=== PATIENT | female | born 1950 | race Caucasian/White ===

== ENCOUNTER 2019-05-07 12:20 | Inpatient (IN) | payer MEDICARE, SELFPAY ==
[2019-05-07] VITALS (10 sets, daily range): BP systolic 136–154; BP diastolic 84–106; PULSE 100–112; RESP 17–24; TEMP 36.6–37.1; O2SAT 91–100; BMI 45.7; BMI 50.5
--- NOTE | 2019-05-07 15:38 | EKG12_ITS ---
Test Reason : SOB Blood Pressure : / mmHG Vent. Rate : 101 BPM Atrial Rate : 101 BPM P-R Int : 154 ms QRS Dur : 082 ms QT Int : 308 ms P-R-T Axes : 048 -11 058 degrees QTc Int : 399 ms Sinus tachycardia Inferior infarct , age undetermined Cannot rule out Anterior infarct , age undetermined Non-specific T-Wave Abnormality Abnormal ECG Confirmed by OLIVIA VELEZ, LINDSAY ([id number]), graphic editor JACK RAMOS ([id number]) on 05/09/2019 7:54:14 AM Referred By: Shakeel Groves Confirmed By:LINDSAY BAKER MD
[2019-05-07] MEDS: Ipratropium/Albuterol Sulfate 3 ML AMPUL.NEB INHALATION (15:55)
[2019-05-07 16:15] LABS: Anion Gap 7 (5-15); BUN 16 mg/dL (7-18); BUN/Creat Ratio 12.6 RATIO (10-20); Calcium,Total 8.8 mg/dL (8.5-10.1); Chloride 106 mmol/L (98-107); Creatinine, Serum 1.27 mg/dL (0.55-1.02); EST Glomerular Filtration Rate 44 mL/min (>60); Est Glom Filt Rate - Afr Amer 53 mL/min (>60); Glucose 392 mg/dL (74-106); Potassium 4.5 mmol/L (3.5-5.1); Sodium Level 142 mmol/L (136-145)
--- NOTE | 2019-05-07 16:20 | RAD_ITS ---
STUDY: X-RAY CHEST REASON FOR EXAM: Female, 68 years old. SHORTNESS OF BREATH WITH NON-PRODUCTIVE COUGH OVER THE LAST COUPLE OF DAYS, WORSE TODAY TECHNIQUE: Frontal and lateral views of the chest. COMPARISON: None. FINDINGS: Single chamber defibrillator on the left. Central vascular congestion. There is no demonstrated pleural abnormality. Prominent cardiac silhouette. Normal mediastinum and madan. Normal visualized pulmonary arteries. Normal visualized aortic arch and descending thoracic aorta. Normal visualized thoracic spine. There is degenerative osteoarthritis of the bilateral shoulders. There is no demonstrated abnormality of the visualized soft tissue structures of the upper abdomen. RAD/Chest PA and Lateral IMPRESSION: Central vascular congestion. Electronically Signed: Jhon Fairbanks MD at 16:42 EDT Tel , Service support ,
[2019-05-07 16:24] LABS: Absolute Lymphocyte Count 0.35 X10^3/ul (0.83-4.51); Absolute Neutrophil Count 5.2 X10^3/uL (2.0-7.7); Basophil# 0.01 X10^3/uL; Basophil% 0.2 % (0-1); Eosinophil# 0.08 X10^3/uL; Eosinophils% 1.3 % (0-5); Hematocrit 40.3 % (37-47); Hemoglobin 12.3 g/dl (12.0-15.0); Lymphocyte # 0.35 X10^3/ul (4.0); Lymphocyte % 5.6 % (19-41); Mean Corp Hgb Conc 30.5 g/gl (32-36); Mean Corpuscular Volume 88.4 fL (81-99); Mean Platelet Vol. 11.7 fl (6.2-12.0); Monocyte# 0.58 X10^3/uL; Monocyte% 9.3 % (0-10); Neutrophil % 83.4 % (47-70); Platelet Count 131 K/mm3 (150-450); RBC Distribution Width CV 16.7 % (11.6-14.6); RBC Distribution Width SD 53.3 fl (35.1-43.9); Red Blood Count 4.56 M/mm3 (4.2-5.4); White Blood Count 6.2 K/mm3 (4.4-11.0)
[2019-05-07 16:26] LABS: Differential Indicated SCAN CRITERIA MET; POSITIVE COUNT NO; POSITIVE DIFFERENTIAL YES; POSITIVE MORPHOLOGY YES
[2019-05-07 16:50] LABS: BNP,B-Type NATRIURETIC PEPTIDE 366.4 pg/mL (0-100)
--- NOTE | 2019-05-07 16:56 | ED.VISSUMM ---
- ER Visit Summary Date of Service: 05/07/19 Chief Complaint: Shortness of breath History of Present Illness: The patient is a 68 F presents to the emergency department shortness of breath. The patient states she had symptoms for the past 3 days. She describes a scant nonproductive cough. She states that she is felt more short of breath especially when she tries to get around. She has not on oxygen at home. The patient does have a history of cardiac disease. She states that she has a defibrillator in place. She is on Lasix and states she is been compliant with her medication. She is also an insulin-dependent diabetic. She denies any chest pain. She just felt like she cannot catch her breath. She states she was given a breathing treatment which did not seem to help her. She is unsure if she had any weight gain. Physical Examination: Vital signs reviewed General: Well-nourished, well-developed Head: Normocephalic, atraumatic Eyes: Pupils equal and reactive, extraocular muscles intact Neck, supple, no lymphadenopathy Heart: Regular rate and rhythm Respiratory: No distress, clear bilaterally Abdomen: Soft, nontender, nondistended, no peritoneal signs Back: Nontender Extremities: Nontender, no edema, no cords Skin: Normal color no rash Neuro: Alert and oriented, no focal or lateralizing deficits Test Results: [] Emergency Department Course and Treatment: The patient had just recently moved here from the [facility]. She was hypoxic on arrival. She was placed on nasal cannula. Chest x-ray shows evidence of volume overload. BNP is also mildly elevated. Troponin is negative. Patient was given nebulized breathing treatment with improvement. My suspicion is that she is likely decompensated congestive heart failure. I do feel that she would benefit from oxygen diuresis. Patient was discussed with the hospitalist. Treatment Plan: [] Disposition: Admission Impression: 1. Dyspnea 2. Hypoxia 3. CHF This note was generated with [employer] dictation software. It may contain incorrect words, spelling, and punctuation that were not noted in review of the chart prior to signing ED Disposition - Plan for ED Patient: Disposition: Acute Care [facility]
[2019-05-07 17:01] LABS: Differential Comment SCANNED; Platelet Estimate SLT DEC (ADEQ)
[2019-05-07] MEDS: Furosemide 40 MG/4 ML Vial IV ×2 (17:42→18:48)
--- NOTE | 2019-05-07 17:50 | HP.PCM_ITS ---
Problem List (1) CHF (congestive heart failure) Status: Acute Qualifiers: Heart failure type: unspecified Heart failure chronicity: acute Qualified Code(s): I50.9 - Heart failure, unspecified History of Present Illness Date of Admission: 05/07/19 Chief Complaint: shortness of breath The patient is a 68 year old F presents with several week history of increasing shortness of breath. Patient states that she is having dyspnea on exertion. Also feeling dizzy when she stands up. Presented to the emergency room where she had a chest x-ray that was concerning for CHF as well as an elevated BNP of 366. Patient has a defibrillator but denies any other cardiac history. Asked why she has a defibrillator she is not able to specify why specifically as she has a defibrillator in place. She denies any chest pain nor any lower extremity edema. Patient does not weigh herself so she does not take that her weight has changed. States that she has had increased orthopnea over this past few weeks as well. In the emergency room, patient initially presented 80%. Was doing well otherwise but when I try to ambulate her during the course of her stay, dropped down to 85%. She did receive duo nebs as well as Lasix in the emergency room. She denies any history of CHF in the past. [] Past Medical History Medical History: Medical History (Last Updated 05/07/19 @ 17:53 by Shakeel Groves DO) Cardiac defibrillator in place Z95.810 DM2 (diabetes mellitus, type 2) E11.9 Allergies No Known Allergies Allergy (Verified 05/07/19 12:21) Home Medications: Ambulatory Orders Medication Instructions Recorded Aspirin [Aspir 81] 81 mg PO DAILY 05/07/19 Furosemide [Lasix] 20 mg PO DAILY 05/07/19 Glimepiride [Amaryl] 4 mg PO BID 05/07/19 Metformin HCl 500 mg PO BID 05/07/19 Sacubitril/Valsartan 24/26 mg 1 ea PO BID 05/07/19 [Entresto 24 mg-26 mg Tablet] Sertraline HCl 100 mg PO DAILY 05/07/19 Sitagliptin Phosphate [Januvia] 25 mg PO DAILY 05/07/19 Surgical History: Surgical History (Last Updated 05/07/19 @ 17:53 by Shakeel Groves DO) Total knee replacement status Z96.659 Psychiatric History: No 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 Lives: Alone Smoking Status: Never smoker Tobacco Use: Non-smoker Alcohol: None Drugs: None - *Family History Maternal History Items: - - No CAD Review of Systems Constitutional: Denies: Anorexia, Chills, Fever Eyes: Denies: Blurred vision, Double vision HEENT: Denies: Head Aches, Sinus Congestion, Sinus Drainage Cardiovascular: Denies: Chest Pain, Edema, Palpitations Respiratory: Reports: Shortness of Breath, Shortness of breath upon exertion. Denies: Cough Gastrointestinal: Denies: Abdominal Pain, Nausea, Vomiting Genitourinary: Denies: Dysuria Musculoskeletal: Denies: Joint Pain, Joint Tenderness Skin: Denies: Rash, Wounds Neurological: Denies: Numbness, Tingling, Focal weakness Psychiatric: Denies: Anxiety, Depression Endocrine: Denies: Change in Body Habitus, Heat/ Cold Intolerance Hematologic/ Lymphatic: Denies: Easy Bruising, Easy Bleeding, Hx of blood clot VTE Information - Inpt Only VTE Present on Admission: No VTE Mechan Device Prophylaxis: None VTE Pharm Prophylaxis ordered?: Yes Patient Problems: Active and Suspected Problems CHF (congestive heart failure) (Acute) - Physical Exam General: Alert, No apparent distress HEENT: Atraumatic, Normocephalic, - - No icterus Oral: Moist Mucosa Neck: No Nodes, Thyroid Normal Size and Texture, - - Positive JVD Lungs: Clear to auscultation, No rhonchi, No wheeze Cardiovascular: Regular rate, Regular Rhythm, Normal S1, Normal S2, No murmurs Abdomen: Bowel Sounds Present, Soft, Non Tender, Non-Distended, No Hepato- splenomegaly, Obese Extremities: No edema, No Calf Tenderness Skin: No rashes, No breakdown Musculoskeletal: No Tenderness to Palpation of Joints or Extremities, No Muscle Wasting Neurological: Deep Tendon Reflexes 2+/4 and Symmetrical, Neuro grossly intact, - - No clonus Psych/Mental Status: Normal Affect, Appropriate Vital Signs Temp Pulse Resp BP Pulse Ox 36.6 C 109 H 18 154/90 H 92 05/07/19 12:21 05/07/19 17:19 05/07/19 17:19 05/07/19 17:19 05/07/19 17:19 Oxygen Flow Rate (L/min) 2 Oxygen Delivery Method Room Air Weight: 113.398 kg Body Mass Index (BMI) 45.7 Laboratory Tests Past 24 Hrs 05/07/19 05/07/19 05/07/19 15:30 15:30 15:30 WBC 6.2 RBC 4.56 Hgb 12.3 Hct 40.3 MCV 88.4 MCH 27.0 MCHC 30.5 L RDW 16.7 H RDW Differential 53.3 H Plt Count 131 L MPV 11.7 Immature Gran % (Auto) 0.200 Neut % (Auto) 83.4 H Lymph % (Auto) 5.6 L Ray % (Auto) 9.3 Eos % (Auto) 1.3 Baso % (Auto) 0.2 Absolute Neuts (auto) 5.2 Absolute Lymphs (auto) 0.35 L Total Counted Not Reportable Differential Comment SCANNED Platelet Estimate SLT DEC Sodium 142 Potassium 4.5 Chloride 106 Carbon Dioxide 29.0 Anion Gap 7 BUN 16 Creatinine 1.27 H Estim Creat Clear Calc 32.60 Est GFR (MDRD) Af Amer 53 L Est GFR (MDRD) Non-Af 44 L BUN/Creatinine Ratio 12.6 Glucose 392 H Calcium 8.8 Troponin I 0.036 B-Natriuretic Peptide 366.4 H EKG reviewed and showed normal sinus rhythm with no acute changes. Chest x-ray reviewed and was poor respiratory effort possible pulmonary vascular congestion. Defibrillator in place. Assessment/Plan All Active Problems CHF (congestive heart failure) (Acute) 1. Acute heart failure * Unspecified type, though I suspect of reduced ejection fraction given her history of defibrillator placement. * We will continue with IV Lasix * Continue with Entresto * Check echocardiogram * Check records from [facility] as patient has a defibrillator in place and she is not clear why. * So the patient's dyspnea may be multifactorial including undiagnosed and possibly and untreated sleep apnea. May need outpatient polysomnogram. 2. Diabetes mellitus type 2 * Continue with her oral meds * Signs scale insulin * Check an A1c 3. Morbid obesity * Complicates care consult nutrition 4. VTE prophylaxis: Moderate risk. Lovenox. 5. Advanced care planning: Discussed with the patient about CPR intubation and PEG tube. Patient stated that she would want all that if this became necessary. Therefore, patient is full CODE STATUS and desires to have a PEG tube in the event of dysphagia. Code Visit OBSV E&M: [id number] Initial observation care L3
--- NOTE | 2019-05-07 18:21 | ECHOD_ITS ---
Reason For Study: CHF Procedure This was a 2D Doppler, Color Flow transthoracic echocardiogram. No apical images were obtained due to patient being unable to tolerate probe. The study was technically difficult. Exam performed portable in patient room. Left Ventricle Mildly dilated left ventricle. Severe segmental systolic dysfunction (see wall motion). The estimated ejection fraction is 20 %. Unable to assess diastolic dysfunction. Lateral-Basal: Hypokinetic. Posterior-Basal: Severely hypokinetic. Infero-Basal: Severely Hypokinetic. Basal inferoseptal: Severely Hypokinetic. Basal anteroseptal: Severely Hypokinetic. Mid-Anterior : Hypokinetic. Mid-Lateral : Hypokinetic. Mid-Posterior: Akinetic. Mid-Inferior: Akinetic. Mid- inferoseptal : Severly Hypokinetic. Mid-anteroseptal : Severely Hypokinetic. [place] : Not visualized. Right Ventricle Normal RV size. ICD or pacer leads identified within the right ventricle. Normal systolic function. Atria The left atrium appears enlarged. The right atrium is not well visualized. Mitral Valve There is no mitral annular calcification. Normal mitral valve. Trivial mitral valve insufficiency. Tricuspid Valve Normal tricuspid valve. Trivial tricuspid valve insufficiency. Unable to estimate RV systolic pressure/pulmonary artery pressure due to technically difficult study. Aortic Valve Trisinus/trileaflet aortic valve. Mild focal aortic valve calcification. Pulmonic Valve The pulmonic valve is not well visualized. Great Vessels Normal sized aortic root. Pericardium/Pleural No pericardial effusion. MMode/2D Measurements & Calculations LVIDd: 5.5 cm IVSd: 1.5 cm Ao root diam: 3.3 cm LVIDs: 4.9 cm LVPWd: 1.3 cm LA dimension: 5.0 cm FS: 10.9 % Doppler Measurements & Calculations PA V2 max: 67.3 cm/sec Interpretation Summary The study was technically difficult. Mildly dilated left ventricle. Severe segmental systolic dysfunction (see wall motion). The estimated ejection fraction is 20 %. The left atrium appears enlarged. Trivial mitral valve insufficiency. Trivial tricuspid valve insufficiency. Mild focal aortic valve calcification. Unable to estimate RV systolic pressure/pulmonary artery pressure due to technically difficult study. Unable to assess diastolic dysfunction. ICD or pacer leads identified within the right ventricle. Ordering Physician: Shakeel Groves Referring Physician: Shakeel Groves Performed By: Mariano Meraz [facility]
[2019-05-07] MEDS: 0.9% NaCl Peripheral Flush Adult/Peds IV (18:48)
[2019-05-07] MEDS: SACUBITRIL/VALSARTAN 24/26 MG TABLET 1 EACH PO (21:45)
[2019-05-07 22:05] LABS: Bedside Glucose 352 mg/dL (70-110)
[2019-05-07] MEDS: Insulin Lispro 100 UNIT/ML INSULN.PEN SC (23:38)
[2019-05-08] VITALS (11 sets, daily range): BP systolic 109–125; BP diastolic 57–90; PULSE 90–102; RESP 18–20; TEMP 36.4–37.2; O2SAT 91–99
[2019-05-08 07:00] LABS: Anion Gap 6 (5-15); BUN 16 mg/dL (7-18); BUN/Creat Ratio 14.4 RATIO (10-20); Chloride 103 mmol/L (98-107); Creatinine, Serum 1.11 mg/dL (0.55-1.02); EST Glomerular Filtration Rate 52 mL/min (>60); Est Glom Filt Rate - Afr Amer 62 mL/min (>60); Glucose 180 mg/dL (74-106); Potassium 3.8 mmol/L (3.5-5.1); Sodium Level 140 mmol/L (136-145); Thyroid Stim Hormone (TSH) 2.15 uIU/mL (0.358-3.74)
[2019-05-08 07:08] LABS: Hemoglobin A1c 9.9 % (4.2-6.3)
[2019-05-08] MEDS: Insulin Lispro 100 UNIT/ML INSULN.PEN SC ×4 (07:09→22:33)
[2019-05-08 07:16] LABS: Bedside Glucose 195 mg/dL (70-110)
[2019-05-08] MEDS: Glimepiride 4 MG Tablet PO ×2 (09:46→17:12)
[2019-05-08] MEDS: Aspirin E.C. 81 MG Tablet PO (09:46)
[2019-05-08] MEDS: metFORMIN HCl 500 MG Tablet PO (09:47)
[2019-05-08] MEDS: SACUBITRIL/VALSARTAN 24/26 MG TABLET 1 EACH PO ×2 (09:47→22:34)
[2019-05-08] MEDS: Furosemide 40 MG/4 ML Vial IV ×2 (09:47→17:15)
[2019-05-08] MEDS: 0.9% NaCl Peripheral Flush Adult/Peds IV ×3 (09:48→22:32)
[2019-05-08] MEDS: Sertraline 100 MG Tablet PO (09:48)
[2019-05-08] MEDS: Enoxaparin 40 MG/0.4 ML Syringe SC (09:48)
[2019-05-08] MEDS: LINAGLIPTIN 5 MG TABLET PO (09:48)
[2019-05-08 11:25] LABS: Bedside Glucose 273 mg/dL (70-110)
--- NOTE | 2019-05-08 12:16 | PN_ITS ---
Patient Problems: Active and Suspected Problems (Last Updated 05/07/19 @ 17:53 by Shakeel Groves DO) CHF (congestive heart failure) (Acute) Subjective: Patient seen and examined. Breathing mildly improved. Patient reports she has had increased shortness of breath for months. Denies chest pain, dizziness, lightheadedness. Denies lower extremity swelling or known weight gain. She does report she does not weigh herself at home. - Physical Exam General: Alert, Oriented x3, Cooperative HEENT: Atraumatic, PERRLA, EOMI, Normocephalic Neck: Supple, No JVD, Negative Carotid Bruits Lungs: Clear to auscultation, Diminished Abdomen: Bowel Sounds Present, Soft, Non Tender, Non-Distended, Obese Extremities: No clubbing, No cyanosis, No edema, Capillary Refill Less than 3 Seconds Skin: No rashes, No breakdown Musculoskeletal: No Tenderness to Palpation of Joints or Extremities Neurological: Cranial nerves II-XII grossly intact, Neuro grossly intact Psych/Mental Status: Normal Affect, Appropriate Vital Signs Temp Pulse Resp BP Pulse Ox 97.8 F 95 20 H 119/64 91 05/08/19 08:20 05/08/19 08:20 05/08/19 08:20 05/08/19 08:20 05/08/19 11:30 Oxygen Flow Rate (L/min) 2 Oxygen Delivery Method Room Air Weight: 276 lb 10.882 oz Body Mass Index (BMI) 50.5 Intake and Output for Last 24 Hours 05/06/19 05/07/19 05/08/19 23:59 23:59 23:59 Intake Total 60 / 60 Output Total 250 / 250 Balance -190 / -190 Laboratory Tests Past 24 Hrs 05/07/19 05/07/19 05/07/19 15:30 15:30 15:30 WBC 6.2 RBC 4.56 Hgb 12.3 Hct 40.3 MCV 88.4 MCH 27.0 MCHC 30.5 L RDW 16.7 H RDW Differential 53.3 H Plt Count 131 L MPV 11.7 Immature Gran % (Auto) 0.200 Neut % (Auto) 83.4 H Lymph % (Auto) 5.6 L Scott % (Auto) 9.3 Eos % (Auto) 1.3 Baso % (Auto) 0.2 Absolute Neuts (auto) 5.2 Absolute Lymphs (auto) 0.35 L Total Counted Not Reportable Differential Comment SCANNED Platelet Estimate SLT DEC Sodium 142 Potassium 4.5 Chloride 106 Carbon Dioxide 29.0 Anion Gap 7 BUN 16 Creatinine 1.27 H Estim Creat Clear Calc 32.60 Est GFR (MDRD) Af Amer 53 L Est GFR (MDRD) Non-Af 44 L BUN/Creatinine Ratio 12.6 Glucose 392 H Hemoglobin A1c Calcium 8.8 Troponin I 0.036 B-Natriuretic Peptide 366.4 H TSH 05/07/19 05/07/19 05/08/19 18:55 21:10 05:45 WBC RBC Hgb Hct MCV MCH MCHC RDW RDW Differential Plt Count MPV Immature Gran % (Auto) Neut % (Auto) Lymph % (Auto) Scott % (Auto) Eos % (Auto) Baso % (Auto) Absolute Neuts (auto) Absolute Lymphs (auto) Total Counted Differential Comment Platelet Estimate Sodium 140 Potassium 3.8 Chloride 103 Carbon Dioxide 31.0 Anion Gap 6 BUN 16 Creatinine 1.11 H Estim Creat Clear Calc 37.30 Est GFR (MDRD) Af Amer 62 Est GFR (MDRD) Non-Af 52 L BUN/Creatinine Ratio 14.4 Glucose 180 H Hemoglobin A1c Calcium 9.0 Troponin I 0.040 0.046 H B-Natriuretic Peptide TSH 2.15 05/08/19 05:45 WBC RBC Hgb Hct MCV MCH MCHC RDW RDW Differential Plt Count MPV Immature Gran % (Auto) Neut % (Auto) Lymph % (Auto) Scott % (Auto) Eos % (Auto) Baso % (Auto) Absolute Neuts (auto) Absolute Lymphs (auto) Total Counted Differential Comment Platelet Estimate Sodium Potassium Chloride Carbon Dioxide Anion Gap BUN Creatinine Estim Creat Clear Calc Est GFR (MDRD) Af Amer Est GFR (MDRD) Non-Af BUN/Creatinine Ratio Glucose Hemoglobin A1c 9.9 H Calcium Troponin I B-Natriuretic Peptide TSH POC Glucose 05/08/19 05/08/19 05/07/19 11:20 07:07 21:45 POC Glucose 273 H 195 H 352 H Medical Necessity - Tobacco Use Smoking Status: Never smoker Tobacco Use: Non-smoker Assessment/Plan All Active Problems (Last Updated 05/07/19 @ 17:53 by Shakeel Groves DO) CHF (congestive heart failure) (Acute) 1. Acute CHF with associated acute hypoxia-chest x-ray admission with central vascular congestion. BNP 366. Continue IV Lasix 40 mg twice daily. Oxygen stable on room air. Continue supplement oxygen to maintain O2 sat above 90%. Strict I&O. Daily weight. Echocardiogram pending. 2. Elevated creatinine-suspect chronic kidney disease stage III, although unknown baseline. BMP today improved from prior. Trend BMP. 3. Status post AICD-patient reports this was secondary to abnormal rhythm. [facility] from [facility] where a defibrillator was placed. 4. Suspected JAMAR-given body habitus. Recommend outpatient polysomnogram. 5. Type 2 diabetes mellitus-continue home metformin and Amaryl regimen. Hemoglobin A1c 9.9%. Accu-Cheks before meals and at bedtime with sliding scale insulin. 6. Hypertension-continue home Entresto regimen. 7. Morbid obesity-encouraged diet and lifestyle modifications. Nutrition consult. 8. Depression-continue home sertraline regimen. DVT prophylaxis-Lovenox subcu This patient was seen by SANNA Mitchell under the supervision of Dr. Hinton.
[2019-05-08 14:56] LABS: Bedside Glucose 59 mg/dL (70-110)
[2019-05-08 14:56] LABS: Bedside Glucose 115 mg/dL (70-110)
[2019-05-08 17:00] LABS: Bedside Glucose 205 mg/dL (70-110)
--- NOTE | 2019-05-08 17:06 | CHAPLAIN ---
patient is sleeping; left calling card
[2019-05-08] MEDS: Furosemide 100 MG/10 ML Vial 80 MG IV (22:31)
[2019-05-08] MEDS: Acetaminophen 325 MG Tablet 650 MG PO (22:34)
[2019-05-08 22:46] LABS: Bedside Glucose 270 mg/dL (70-110)
[2019-05-09] VITALS (11 sets, daily range): BP systolic 89–147; BP diastolic 50–106; PULSE 86–114; RESP 16–18; TEMP 36.5–37; O2SAT 92–95
[2019-05-09 06:44] LABS: Anion Gap 8 (5-15); BUN 21 mg/dL (7-18); BUN/Creat Ratio 15.2 RATIO (10-20); Calcium,Total 8.6 mg/dL (8.5-10.1); Chloride 102 mmol/L (98-107); Creatinine, Serum 1.38 mg/dL (0.55-1.02); EST Glomerular Filtration Rate 40 mL/min (>60); Est Glom Filt Rate - Afr Amer 49 mL/min (>60); Glucose 138 mg/dL (74-106); Potassium 3.9 mmol/L (3.5-5.1); Sodium Level 140 mmol/L (136-145)
[2019-05-09] MEDS: Insulin Lispro 100 UNIT/ML INSULN.PEN SC ×4 (06:44→21:48)
[2019-05-09 06:50] LABS: Bedside Glucose 168 mg/dL (70-110)
[2019-05-09] MEDS: Glimepiride 4 MG Tablet PO ×2 (10:06→16:34)
[2019-05-09] MEDS: Aspirin E.C. 81 MG Tablet PO (10:06)
[2019-05-09] MEDS: SACUBITRIL/VALSARTAN 24/26 MG TABLET 1 EACH PO ×2 (10:07→21:57)
[2019-05-09] MEDS: Sertraline 100 MG Tablet PO (10:08)
[2019-05-09] MEDS: Enoxaparin 40 MG/0.4 ML Syringe SC (10:08)
[2019-05-09] MEDS: LINAGLIPTIN 5 MG TABLET PO (10:08)
[2019-05-09 11:41] LABS: Bedside Glucose 252 mg/dL (70-110)
--- NOTE | 2019-05-09 13:08 | CHAPLAIN ---
Type of Pastoral Visit _x__ Initial Visit ___ Follow-up Visit ___ On-call Visit ___ General Patient Visit ___ Spiritual Assessment ___ Family Conference ___ Bereavement ___ Rapid Response ___ Code Blue ___ Other (describe below) Pastoral Care Referral From _x__ Patient ___ Family ___ Nurse ___ Physician ___ Activated Sludge Attendant ___ Protective Signal Operator ___ Other (describe below) Sacrament/Intervention _x__ Active listening ___ Anointing ___ Anabaptism ___ Bereavement ___ Communion ___ Mary exploration ___ _x__ Life review _x__ Prayer ___ Reconciliation ___ Sacrament of Sick _x__ Supportive presence ___ Wedding ___ Other (describe below) Pastoral Comments
--- NOTE | 2019-05-09 13:09 | CASEMGMT ---
Addendum entered by Samantha Agudelo 05/09/19 15:36: Call received from JERO Mcbride CM for [facility]. She states that pt has Waiver Program and pt's manager presentation is Karen Navarro. . She states she is aware pt is @ [facility] and confirms that Karen is actively searching for aides for pt through [facility]. She was made aware anticipated discharge home is tomorrow 05/10. Call placed to JERMAN/Armand Latif @ [phone]. She was made aware pt is needing [facility] services for PT/OT, prison, SW, and possibly aides (dependent upon if pt aide services can be provided through the waiver program). She was also made aware pt needs established with PCP first and that pt prefers to see MD @ [facility]. Marge states pt had an initial appt already made with Dr Hussein in July. Marge was able to change the appt to May 15 @ 0820. Pt was made aware and states her friend, Sreekanth, would not be available that early in the morning. Call placed to [employer] @ , the transport number for [facility], and transportation set up through them to pick pt up from her apartment to Dr Hussein's office on 05/15/19. See Discharge follow-up appt intervention section for details. Pt made aware. Discussed importance of this appt with pt. Pt made aware that this appt is necessary in order for HHC services to begin. Pt voices understanding. Marge Latif made aware of the transportation arrangements made through [employer] and she was given their confirmation number and contact number. She was made aware they will need called after pt's appt with Dr Hussein for pick and shovel man time for pt to be taken back home. Call placed to [facility] and she was made aware of anticipated referral for HHC services after pt has initial appt with Dr Hussein. Marge Latif @ [facility] made aware. Original Note: JERO LOUIS BANK CONSULTANT CM to room to meet with patient for initial transition planning/care coordination assessment. JERO LOUIS introduced self and role at [facility]. Pt voices understanding and consents to assessment at this time. Pt sitting up in recliner chair in room, in no distress at this time. Pt is A/O at this time and answers all questions appropriately. Care providers, pharmacy, and demographics verified/updated at this time. PCP: Pt states she just moved to the area from [facility] and has not established with PCP yet. Pt currently has no PCP. Given list of local PCP's as listed from [facility] website. Pt voices appreciation. Pt made aware she will need to follow-up with PCP after discharge from the hospital and offered pt to help assist her with getting appt set up with a new PCP, as she will need Pt states she prefers to see PCP @ [facility]. Cigar Head Holer made aware. Preferred Pharmacy: [facility] Insurance: [employer] [facility]. has a Swimming Pool Installer: Rae Bradford: [phone]. She states Rae is aware she is @ [facility] and that she was in to visit her here at the hospital yesterday. Prescription Benefit: Yes Living Will/HPOA: Pt does not currently have LW/HCPOA and would like to talk with DIETER. DIETER Arzola, made aware. LNOK: Sister, Margarita. Pt did not have any contacts listed on demographics sheet. She states she does not know her sisters phone number. She provided name and phone number of a friend she states she has had for 40 years, Sreekanth, who she states lives by her and would be able to contact Margarita if needed. She states Sreekanth provides transportation for her and will take her to her doctor appts and grocery shopping. Living Arrangements: Lives alone in an apartment. has someone come clean for her, but otherwise manages her own ADL's, finances, and appts. Transportation: Friend Sreekanth. She states she is not sure if Sreekanth will be available to transfer her home @ discharge. Pt made aware to let staff know if she does not have transportation, as assistance can be given such as with [facility] Van if it is available. Pt voices understanding. DME: has the following: Shower chair, grab bars, commode w/grab bar, walker, rollator, and nebulizer. States would like information on a medical alert button. Provided with list of local providers. HHC/SNF: Hx of SNF @ [facility] in [place] after having knee replacements. Also history of HHC for therapy but she does not remember the name of the agency. Discussed discharge planning with pt and discussed options @ discharge, including HHC. Pt initially declined wanting any HHC or additional therapy but then she was agreeable, stating, It would be nice for a nurse to come check on me. Pt also agreeable to therapy services through [facility] as well. States no preference of [facility] agency. Pt states [facility] is working on getting an aide to assist her in the home. Call placed to JERO Mcbride CM @ [facility], and message left asking for return call to verify services pt qualifies for and how soon aides will be available. Awaiting return call. Pt wishes to return home and states has no concerns with going home at time of discharge. CM to follow for any further discharge planning/needs. Pt voices no further concerns/needs at this time. Advised pt to ask for CM if any further questions/concerns/needs arise. Voices understanding. Pt's wishes: Home w/HHC. D/C Plan: Home w/HHC Josh PICKARD RN, CM
--- NOTE | 2019-05-09 13:10 | CASEMGMT ---
SW spoke with patient regarding advance directives. She wanted SW to explain documents and to leave them with her. SW let her know if she would like to complete them she just needs to ask for SW. Ness HERMAN MSW
--- NOTE | 2019-05-09 13:15 | PN_ITS ---
<Eryn Ohara - Last Filed: 05/09/19 14:38> Patient Problems: Active and Suspected Problems (Last Updated 05/07/19 @ 17:53 by Shakeel Groves DO) CHF (congestive heart failure) (Acute) Subjective: Patient seen and examined. Shortness of breath improved however continues to have shortness of breath with minimal exertion. Denies chest pain or other current complaints. - Physical Exam General: Alert, Oriented x3, Cooperative HEENT: Atraumatic, PERRLA, EOMI, Normocephalic Neck: Supple, No JVD, Negative Carotid Bruits Lungs: Clear to auscultation, Diminished Cardiovascular: Regular rate, Regular Rhythm, Normal S1, Normal S2, No murmurs Abdomen: Bowel Sounds Present, Soft, Non Tender, Non-Distended, Obese Extremities: No clubbing, No cyanosis, No edema, Capillary Refill Less than 3 Seconds Skin: No rashes, No breakdown Musculoskeletal: No Tenderness to Palpation of Joints or Extremities Neurological: Cranial nerves II-XII grossly intact, Neuro grossly intact Psych/Mental Status: Normal Affect, Appropriate Vital Signs Temp Pulse Resp BP Pulse Ox 97.9 F 89 18 111/61 95 05/09/19 09:30 05/09/19 09:30 05/09/19 09:30 05/09/19 09:30 05/09/19 09:30 Oxygen Flow Rate (L/min) 2 Oxygen Delivery Method Room Air Weight: 266 lb 5.094 oz Body Mass Index (BMI) 50.5 Intake and Output for Last 24 Hours 05/07/19 05/08/19 05/09/19 23:59 23:59 23:59 Intake Total 60 / 60 390 / 390 720 / 720 Output Total 250 / 250 1145 / 1145 200 / 200 Balance -190 / -190 -755 / -755 520 / 520 Laboratory Tests Past 24 Hrs 05/09/19 06:05 Sodium 140 Potassium 3.9 Chloride 102 Carbon Dioxide 30.0 Anion Gap 8 BUN 21 H Creatinine 1.38 H Estim Creat Clear Calc 30.00 Est GFR (MDRD) Af Amer 49 L Est GFR (MDRD) Non-Af 40 L BUN/Creatinine Ratio 15.2 Glucose 138 H Calcium 8.6 POC Glucose 05/09/19 05/09/19 05/08/19 11:28 06:41 22:30 POC Glucose 252 H 168 H 270 H 05/08/19 05/08/19 05/08/19 16:57 14:53 14:31 POC Glucose 205 H 115 H 59 L Medical Necessity - Tobacco Use Smoking Status: Never smoker Tobacco Use: Non-smoker Assessment/Plan All Active Problems (Last Updated 05/07/19 @ 17:53 by Shakeel Groves DO) CHF (congestive heart failure) (Acute) 1. Acute on chronic systolic CHF with associated acute hypoxia/dilated cardiomyopathy-chest x-ray admission with central vascular congestion. BNP 366. Continue IV Lasix 40 mg twice daily. Oxygen stable on room air. Walking pulse ox prior to discharge. Strict I&O. Daily weight. Echocardiogram shows an EF of 20%, severe segmental systolic dysfunction. Prior echocardiogram at outside facility January 2018 showed EF 39%. Patient is a poor historian. She denies being told prior that she has a reduced EF. She also denies prior cardiac catheterization. Denies history of CAD/stents/ND although per [facility] records, she does have a history of CAD with no mention of prior intervention. Patient states she does not wish to have invasive cardiac testing performed at this time including cardiac catheterization. She would like to continue with medical management and follow-up with cardiology as outpatient. She has not previously established with a natural fabricator and recently moved to the area. Patient will need close follow-up with [facility] at discharge. Patient currently on Lasix 20 mg p.o. daily at home. This will need increased at discharge. 2. Elevated creatinine-suspect chronic kidney disease stage III, although unknown baseline. Stable. Trend BMP. 3. Status post AICD-placed in 2006 at [facility]. 4. Suspected JAMAR-given body habitus. Recommend outpatient polysomnogram. Overnight trending pulse ox. 5. Type 2 diabetes mellitus-hold home metformin regimen. Continue Amaryl, [place] via regimen. Hemoglobin A1c 9.9%. Accu-Cheks before meals and at bedtime with sliding scale insulin. Discontinue metformin going forward given chronic renal insufficiency and severe cardiomyopathy. 6. Hypertension-continue home Entresto regimen. 7. Morbid obesity-encouraged diet and lifestyle modifications. Nutrition consult. 8. Depression-continue home sertraline regimen. DVT prophylaxis-Lovenox subcu Discharge planning: Pending further diuresis and PT evaluation. Patient recently moved to this area and will need to establish and follow closely with [facility] at discharge. Patient currently refusing PT and any home needs. Will attempt PT again tomorrow, otherwise plan for discharge home. CODE STATUS: Full code, no intubation This patient was seen by SANNA Mitchell under the supervision of Dr. Mendoza. <Timo Mendoza - Last Filed: 05/09/19 16:33> Subjective: Seen and examined. Patient refused for physical therapy yesterday. Today trying to move out of bed. Still has shortness of breath with minimal exertion although better than yesterday. - Physical Exam General: Alert, Oriented x3, Cooperative HEENT: Atraumatic, PERRLA, EOMI, Normocephalic Neck: Supple, No JVD, Negative Carotid Bruits Lungs: Clear to auscultation, Diminished - Air entry is diminished bilaterally., Wheezes - Wheezing mainly from upper airways Cardiovascular: Regular rate, No murmurs Abdomen: Bowel Sounds Present, Soft, Non Tender, Non-Distended Extremities: No edema, Capillary Refill Less than 3 Seconds Skin: No rashes, No breakdown Musculoskeletal: No Tenderness to Palpation of Joints or Extremities, Arthritic Changes Neurological: Cranial nerves II-XII grossly intact, Deep Tendon Reflexes 2+/4 and Symmetrical, Neuro grossly intact Psych/Mental Status: Normal Affect, Appropriate Vital Signs Temp Pulse Resp BP Pulse Ox 97.9 F 89 18 111/61 95 05/09/19 09:30 05/09/19 09:30 05/09/19 09:30 05/09/19 09:30 05/09/19 09:30 Oxygen Flow Rate (L/min) 2 Oxygen Delivery Method Room Air Weight: 266 lb 5.094 oz Body Mass Index (BMI) 50.5 Intake and Output for Last 24 Hours 05/07/19 05/08/19 05/09/19 23:59 23:59 23:59 Intake Total 60 / 60 390 / 390 720 / 720 Output Total 250 / 250 1145 / 1145 200 / 200 Balance -190 / -190 -755 / -755 520 / 520 Laboratory Tests Past 24 Hrs 05/09/19 06:05 Sodium 140 Potassium 3.9 Chloride 102 Carbon Dioxide 30.0 Anion Gap 8 BUN 21 H Creatinine 1.38 H Estim Creat Clear Calc 30.00 Est GFR (MDRD) Af Amer 49 L Est GFR (MDRD) Non-Af 40 L BUN/Creatinine Ratio 15.2 Glucose 138 H Calcium 8.6 POC Glucose 05/09/19 05/09/19 05/08/19 11:28 06:41 22:30 POC Glucose 252 H 168 H 270 H 05/08/19 16:57 POC Glucose 205 H Assessment/Plan This patient was seen in conjunction with STRUCTURES TECHNICIAN, Eryn. I have independently interviewed and examined the patient and reviewed pertinent history, examination findings, laboratory and plan of management. I have reviewed the note and agree with the documented findings with the few additional points. In brief, patient is a 68-year-old female with history of chronic systolic heart failure, EF 20% status post AICD placement was admitted for progressive worsening of shortness of breath. Patient also has orthopnea and PND. Patient has other comorbidities including diabetes mellitus type 2, super obesity, anxiety/depression. Chest x-ray shows increased pulmonary vascular congestion. Echo was done reported as EF 20% with severe cysts multiple systolic dysfunction. Left atrium is enlarged. Patient had 1100 mL urine output on 05/08. Negative balance of 750 mL. On Lasix 40 mg IV twice daily Patient also has wheezing probably from obstructive sleep apnea is more upper airway origin. Bronchodilator ordered. BUN/creatinine 21/1.38. Active Medications Acetaminophen (Tylenol) 650 mg PO Q6H PRN PRN PRN Reason: Mild pain 1-3/Temp > 100.7 F Last Admin: 05/08/19 22:34 Dose: 650 mg Documented by: Albuterol Sulfate (Ventolin Aerosols) 2.5 mg INHALATION Q2H PRN PRN PRN Reason: SOB/Wheezing Aspirin (Ecotrin) 81 mg PO DAILY@0800 [facility] Last Admin: 05/09/19 10:06 Dose: 81 mg Documented by: Dextrose (D50w Syringe) 0 gm IV X1 PRN; Protocol PRN Reason: Hypoglycemia Dextrose (D50w Syringe) 0 gm IV X1 PRN; Protocol PRN Reason: Hypoglycemia Enoxaparin Sodium (Lovenox) 40 mg SC DAILY@1000 [facility] Last Admin: 05/09/19 10:08 Dose: 40 mg Documented by: Furosemide (Lasix) 40 mg IV BID@1000,1800 [facility] Glimepiride (Amaryl) 4 mg PO BIDCM [facility] Last Admin: 05/09/19 10:06 Dose: 4 mg Documented by: Glucagon () 1 mg IM .X1 PRN PRN Reason: Hypoglycemia Glucagon () 1 mg IM .X1 PRN PRN Reason: Hypoglycemia Insulin Glargine (Lantus (Bkc)) 5 units SC BID [facility] Last Admin: 05/09/19 10:07 Dose: 5 u Documented by: Insulin Human Lispro (Humalog Kwikpen (Bkc)) 0 unit SC [facility]; Protocol Last Admin: 05/09/19 11:31 Dose: 6 units Documented by: Linagliptin (Tradjenta) 5 mg PO DAILY [facility] Last Admin: 05/09/19 10:08 Dose: 5 mg Documented by: Ondansetron HCl (Zofran) 4 mg IV Q8H PRN PRN PRN Reason: NAUSEA/VOMITING Sertraline HCl (Zoloft) 100 mg PO DAILY [facility] Last Admin: 05/09/19 10:08 Dose: 100 mg Documented by: Sodium Chloride () 5 - 15 ml IV UD PRN PRN Reason: SALINE FLUSH Last Admin: 05/08/19 22:32 Dose: 10 ml Documented by: Laboratory Results 05/08/19 16:57: POC Glucose 205 H 05/08/19 22:30: POC Glucose 270 H 05/09/19 06:05: Sodium 140, Potassium 3.9, Chloride 102, Carbon Dioxide 30.0, Anion Gap 8, BUN 21 H, Creatinine 1.38 H, Estim Creat Clear Calc 30.00, Est GFR (MDRD) Af Amer 49 L, Est GFR (MDRD) Non-Af 40 L, BUN/Creatinine Ratio 15.2, Glucose 138 H, Calcium 8.6 05/09/19 06:41: POC Glucose 168 H 05/09/19 11:28: POC Glucose 252 H Code Visit Inpatient E&M: 16474 Subs Hosp L3
[2019-05-09] MEDS: Furosemide 40 MG/4 ML Vial IV (16:34)
[2019-05-09 17:05] LABS: Bedside Glucose 273 mg/dL (70-110)
[2019-05-10] VITALS (15 sets, daily range): BP systolic 78–107; BP diastolic 41–56; PULSE 85–102; RESP 17–20; TEMP 36.5–36.9; O2SAT 87–98
[2019-05-10 00:11] LABS: Bedside Glucose 222 mg/dL (70-110)
[2019-05-10 05:44] LABS: Anion Gap 8 (5-15); BUN 28 mg/dL (7-18); BUN/Creat Ratio 14.6 RATIO (10-20); Calcium,Total 8.5 mg/dL (8.5-10.1); Chloride 99 mmol/L (98-107); Creatinine, Serum 1.92 mg/dL (0.55-1.02); EST Glomerular Filtration Rate 27 mL/min (>60); Est Glom Filt Rate - Afr Amer 33 mL/min (>60); Estimated Creatinine Clearance 21.56 ml/min; Glucose 166 mg/dL (74-106); Potassium 3.4 mmol/L (3.5-5.1); Sodium Level 142 mmol/L (136-145)
[2019-05-10] MEDS: Insulin Lispro 100 UNIT/ML INSULN.PEN SC ×4 (06:45→21:36)
[2019-05-10 07:05] LABS: Bedside Glucose 163 mg/dL (70-110)
[2019-05-10] MEDS: Aspirin E.C. 81 MG Tablet PO (09:09)
[2019-05-10] MEDS: Glimepiride 4 MG Tablet PO ×2 (09:11→20:09)
[2019-05-10] MEDS: LINAGLIPTIN 5 MG TABLET PO (09:12)
[2019-05-10] MEDS: Sertraline 100 MG Tablet PO (09:12)
[2019-05-10] MEDS: SACUBITRIL/VALSARTAN 24/26 MG TABLET 1 EACH PO (09:12)
[2019-05-10] MEDS: Enoxaparin 40 MG/0.4 ML Syringe SC (09:13)
[2019-05-10] MEDS: Furosemide 40 MG/4 ML Vial IV (09:14)
[2019-05-10] MEDS: 0.9% NaCl Peripheral Flush Adult/Peds IV ×3 (09:15→16:19)
[2019-05-10 09:40] LABS: Magnesium 1.3 mg/dL (1.6-2.6)
--- NOTE | 2019-05-10 11:37 | CASEMGMT ---
Addendum entered by Samantha Agudelo 05/10/19 11:55: Pt given print out of DC: Follow up appointments of appointment with Cinthia Caballero NP, date/time and address and office number. Original Note: JERO LOUIS NOTE: Reviewed OT notes for today. Noted pt refusing to get OOB for therapy. JERO LOUIS to room to discuss discharge planning with pt again today. Discussed SNF for discharge as pt remains weak. Pt very adamantly refused SNF, firmly stating, I will NOT go to a half-way. I've been there before and I am NOT going back and I will not change my mind. I am going home. JERO LOUIS explained to pt that this is her right to make this decision. Pt reminded of plans for HHC to be arranged after seeing Dr Hussein on May 15. Pt reminded of appt time and transportation arrangements made for her to that appt. Pt very adamantly and firmly stated, I will NOT go to that appt. It is too early and I will not even be out of bed by that time. Pt made aware this was the 1st available appt with Dr Hussein and reminded of importance of seeing Dr Hussein in order for HHC to be set up. Pt stated, I will not go. Pt made aware this JERO LOUIS will place a call back to Dr Hussein's office to see if other appts have come available since yesterday. Call placed to Marge Latif RN CM @ [facility]/Dr Hussein's office. Marge made aware pt states she will not come in for the appt that early and that she is requesting an appt for in the afternoon. Marge states there is now an appt for May 15 @ 1600 available with Nurse Practitioner, Cinthia Caballero now. Appt changed at this time. Pt made aware of appt change and that the appt is with GALA Vicente and not with Dr Hussein. She states she is agreeable to that date/time and that her friend should be able to take her to that appt at that time . Pt instructed to contact [facility] for transportation arrangements to that appt if her friend is not able to take her. Pt voices understanding. Call placed to [employer] @ and cancelled transportation arrangements for 05/15/19. Josh PICKARD RN, CM
[2019-05-10 12:01] LABS: Bedside Glucose 207 mg/dL (70-110)
[2019-05-10] MEDS: Bumetanide 25 MG in CONTAINER,EMPTY 1 BAG CONT INF (13:08)
[2019-05-10] MEDS: Heparin Injection (Vial) 5,000 UNIT/ML VIAL 5000 UNIT SC ×2 (13:32→21:39)
--- NOTE | 2019-05-10 13:52 | PCM.PROGNOTE ---
<Nicola Botello - Last Filed: 05/10/19 13:52> Patient Problems: Active and Suspected Problems (Last Updated 05/07/19 @ 17:53 by Shakeel Groves DO) CHF (congestive heart failure) (Acute) Subjective: Difficulty emptying bladder. SOB. Weak - needs assistance to bathroom. Refuses PTOT. Refuses SNF. No CP. + LE edema. No GI upset. - Physical Exam General: Alert, Oriented x3, Cooperative HEENT: Atraumatic, PERRLA, EOMI, Normocephalic Neck: Supple, No JVD, Negative Carotid Bruits Lungs: Clear to auscultation, Normal air movement Cardiovascular: Regular rate, No murmurs Abdomen: Bowel Sounds Present, Soft, Non Tender Extremities: No edema, Capillary Refill Less than 3 Seconds Skin: No rashes, No breakdown Musculoskeletal: No Tenderness to Palpation of Joints or Extremities Neurological: Cranial nerves II-XII grossly intact Psych/Mental Status: Normal Affect, Appropriate, Alert and oriented to time, place, person, mood and affect Vital Signs Temp Pulse Resp BP Pulse Ox 97.7 F L 86 18 94/53 L 92 05/10/19 10:40 05/10/19 10:40 05/10/19 10:40 05/10/19 10:40 05/10/19 10:40 Oxygen Flow Rate (L/min) 2 Oxygen Delivery Method Room Air Weight: 266 lb 8.622 oz Body Mass Index (BMI) 50.5 Intake and Output for Last 24 Hours 05/08/19 05/09/19 05/10/19 23:59 23:59 23:59 Intake Total 390 / 390 1260 / 1260 420 / 420 Output Total 1145 / 1145 200 / 200 100 / 100 Balance -755 / -755 1060 / 1060 320 / 320 Microbiology Past 72 Hours 05/10/19 10:45 C. difficile DNA Amplification - Final Stool Laboratory Tests Past 24 Hrs 05/10/19 05/10/19 05:20 05:20 Sodium 142 Potassium 3.4 L Chloride 99 Carbon Dioxide 35.0 H Anion Gap 8 BUN 28 H Creatinine 1.92 H Estim Creat Clear Calc 21.56 Est GFR (MDRD) Af Amer 33 L Est GFR (MDRD) Non-Af 27 L BUN/Creatinine Ratio 14.6 Glucose 166 H Calcium 8.5 Magnesium 1.3 L POC Glucose 05/10/19 05/10/19 05/09/19 11:53 06:43 21:37 POC Glucose 207 H 163 H 222 H 05/09/19 16:32 POC Glucose 273 H Medical Necessity - Tobacco Use Smoking Status: Never smoker Tobacco Use: Non-smoker Assessment/Plan All Active Problems (Last Updated 05/07/19 @ 17:53 by Shakeel Groves DO) CHF (congestive heart failure) (Acute) 1. Acute on chronic systolic CHF - EF 20% - worsening renal function. Hightower placed. Nephrology consulted. Bumex drip started. Continue I's and O's daily weights. Patient does not wish to pursue invasive cardiac testing. Her EF is down since last year from 39 to 20%. There is severe segmental systolic dysfunction. She does have an AICD in place. 2. ALICIA-discontinue nephrotoxic agents, nephrology consulted. 3. Suspected JAMAR-trending overnight pulse ox. Outpatient PSG 4. Type 2 diabetes-hold metformin-continue Amaryl and Tradjenta, A1c 9.9. Sliding scale insulin. 5. Hypertension-May need new agent that is not nephrotoxic 6. Morbid obesity-nutrition consult 7. Depression-Zoloft DVT prophylaxis-changed Lovenox to heparin. Discharge planning: When appropriate, home when stable. patient very debilitated however refuses to consider fpc. She also cannot have home health care as she does not have a PCP. This patient was seen by Nicola Botello PA-C under the supervision of Doctor Mendoza. <Timo Mendoza - Last Filed: 05/10/19 15:35> - Physical Exam Vital Signs Temp Pulse Resp BP Pulse Ox 97.7 F L 92 18 94/53 L 92 05/10/19 10:40 05/10/19 14:52 05/10/19 10:40 05/10/19 10:40 05/10/19 10:40 Oxygen Flow Rate (L/min) 2 Oxygen Delivery Method Room Air Weight: 266 lb 8.622 oz Body Mass Index (BMI) 50.5 Intake and Output for Last 24 Hours 05/08/19 05/09/19 05/10/19 23:59 23:59 23:59 Intake Total 390 / 390 1260 / 1260 420 / 420 Output Total 1145 / 1145 200 / 200 100 / 100 Balance -755 / -755 1060 / 1060 320 / 320 Microbiology Past 72 Hours 05/10/19 10:45 C. difficile DNA Amplification - Final Stool Laboratory Tests Past 24 Hrs 05/10/19 05/10/19 05:20 05:20 Sodium 142 Potassium 3.4 L Chloride 99 Carbon Dioxide 35.0 H Anion Gap 8 BUN 28 H Creatinine 1.92 H Estim Creat Clear Calc 21.56 Est GFR (MDRD) Af Amer 33 L Est GFR (MDRD) Non-Af 27 L BUN/Creatinine Ratio 14.6 Glucose 166 H Calcium 8.5 Magnesium 1.3 L POC Glucose 05/10/19 05/10/19 05/09/19 11:53 06:43 21:37 POC Glucose 207 H 163 H 222 H 05/09/19 16:32 POC Glucose 273 H Assessment/Plan This patient was seen in conjunction with BHARTI Petersen. I have independently interviewed and examined the patient and reviewed pertinent history, examination findings, laboratory and plan of management. I have reviewed the note and agree with the documented findings with the few additional points. In brief, patient is a 68-year-old female with history of chronic systolic heart failure, EF 20% status post AICD placement was admitted for progressive worsening of shortness of breath. Patient also has orthopnea and PND. Patient has other comorbidities including diabetes mellitus type 2, super obesity, anxiety/depression. Chest x-ray shows increased pulmonary vascular congestion. Echo was done reported as EF 20% with severe cysts multiple systolic dysfunction. Left atrium is enlarged. Patient had 1100 mL urine output on 05/08, 200 mL on 05/09 with cumulative positive balance of about 500 mL. Patient also has incontinence therefore Hightower catheter was inserted to measure restricted intake and output. Started on Bumex drip 0.5 mg/h. Vulcanized Fiber Unit Operator been consulted. Patient also has wheezing probably from obstructive sleep apnea is more upper airway origin. Bronchodilator ordered. BUN/creatinine 21/1.38. Code Visit Inpatient E&M: 52411 Subs Hosp L3
--- NOTE | 2019-05-10 14:56 | NURSING ---
This RN taking over care at this time.
[2019-05-10 16:26] LABS: Bedside Glucose 285 mg/dL (70-110)
--- NOTE | 2019-05-10 19:16 | NURSING ---
Bumex gtt placed on hold per orders @ 1920.
[2019-05-10] MEDS: Ipratropium/Albuterol Sulfate 3 ML AMPUL.NEB INHALATION (19:41)
[2019-05-10 22:01] LABS: Bedside Glucose 227 mg/dL (70-110)
[2019-05-10] MEDS: Acetaminophen 325 MG Tablet 650 MG PO (23:33)
[2019-05-11] VITALS (15 sets, daily range): BP systolic 97–112; BP diastolic 60–72; PULSE 82–96; RESP 16–19; TEMP 36.3–36.8; O2SAT 93–98
[2019-05-11] MEDS: Heparin Injection (Vial) 5,000 UNIT/ML VIAL 5000 UNIT SC ×3 (05:50→22:05)
[2019-05-11 06:10] LABS: Anion Gap 7 (5-15); BUN 36 mg/dL (7-18); BUN/Creat Ratio 17.8 RATIO (10-20); Calcium,Total 8.4 mg/dL (8.5-10.1); Chloride 100 mmol/L (98-107); Creatinine, Serum 2.02 mg/dL (0.55-1.02); EST Glomerular Filtration Rate 26 mL/min (>60); Est Glom Filt Rate - Afr Amer 31 mL/min (>60); Glucose 127 mg/dL (74-106); Hematocrit 42.3 % (37-47); Hemoglobin 12.7 g/dl (12.0-15.0); Mean Corpuscular Hgb 26.8 pg (27.0-32.0); Mean Corpuscular Volume 89.4 fL (81-99); Mean Platelet Vol. 11.8 fl (6.2-12.0); Platelet Count 165 K/mm3 (150-450); Potassium 3.8 mmol/L (3.5-5.1); RBC Distribution Width CV 16.3 % (11.6-14.6); RBC Distribution Width SD 52.7 fl (35.1-43.9); Red Blood Count 4.73 M/mm3 (4.2-5.4); Sodium Level 143 mmol/L (136-145); White Blood Count 5.1 K/mm3 (4.4-11.0)
[2019-05-11 06:27] LABS: Scan Indicated on CBC? Y/N NO
[2019-05-11 06:46] LABS: Bedside Glucose 127 mg/dL (70-110)
[2019-05-11] MEDS: Ipratropium/Albuterol Sulfate 3 ML AMPUL.NEB INHALATION ×3 (07:01→19:01)
[2019-05-11] MEDS: LINAGLIPTIN 5 MG TABLET PO (09:15)
[2019-05-11] MEDS: Sertraline 100 MG Tablet PO (09:15)
[2019-05-11] MEDS: Aspirin E.C. 81 MG Tablet PO (09:15)
[2019-05-11] MEDS: Glimepiride 4 MG Tablet PO ×2 (09:15→16:59)
--- NOTE | 2019-05-11 09:32 | CASEMGMT ---
Social Work VM left with Chelsea Gleason CM at [facility] with request to return call with information on services currently provided. ANCA Santamaria
--- NOTE | 2019-05-11 09:52 | PCM.CONS.R ---
Consultation - Renal 05/11/19 PCP/ Referring MD: Requesting physician: [] Primary care physician: No Primary Care Phys Reason for Consultation:: ALICIA CKD III cardirenal syndrome - History of Present Illness History of Present Illness: The patient is a 68 year old F with CKD III care at [facility] per EMR 1.4-1.6 complicated CAD history with Acute on chronic systolic CHF with associated acute hypoxia/dilated cardiomyopathy admitted with SOB and edema with chest x-ray admission consistent with central vascular congestion. BNP 366. Echocardiogram shows an EF of 20%, severe segmental systolic dysfunction. Prior echocardiogram at outside facility January 2018 showed EF 39%. Patient is a poor historian.She has AICD-placed in 2006 at [facility].She was started on Lasix with poor response soi switched to Bumex drip creatinine 2 and BUN 36 diuresing well. ] - Allergies Allergies: Allergies No Known Allergies Allergy (Verified 05/07/19 12:21) - Current Medications Current Medications: Current Medications Acetaminophen (Tylenol) 650 mg PO Q6H PRN PRN PRN Reason: Mild pain 1-3/Temp > 100.7 F Last Admin: 05/10/19 23:33 Dose: 650 mg Documented by: Albuterol Sulfate (Ventolin Aerosols) 2.5 mg INHALATION Q2H PRN PRN PRN Reason: SOB/Wheezing Albuterol/Ipratropium (Duoneb) 3 ml INHALATION Q6HWA.RT [facility] Last Admin: 05/11/19 07:01 Dose: 3 ml Documented by: Aspirin (Ecotrin) 81 mg PO DAILY@0800 [facility] Last Admin: 05/11/19 09:15 Dose: 81 mg Documented by: Dextrose (D50w Syringe) 0 gm IV X1 PRN; Protocol PRN Reason: Hypoglycemia Dextrose (D50w Syringe) 0 gm IV X1 PRN; Protocol PRN Reason: Hypoglycemia Glimepiride (Amaryl) 4 mg PO BIDCM [facility] Last Admin: 05/11/19 09:15 Dose: 4 mg Documented by: Glucagon () 1 mg IM .X1 PRN PRN Reason: Hypoglycemia Glucagon () 1 mg IM .X1 PRN PRN Reason: Hypoglycemia Heparin Sodium (Porcine) (Heparin Na) 5,000 unit SC Q8 [facility] Last Admin: 05/11/19 05:50 Dose: 5,000 unit Documented by: Bumetanide 25 mg/ (Miscellaneous Information) 100 mls @ 2 mls/hr CONT INF .Q50H [facility] Last Admin: 05/10/19 13:08 Dose: 2 mls/hr Documented by: Insulin Glargine (Lantus (Bkc)) 5 units SC BID [facility] Last Admin: 05/11/19 09:16 Dose: 5 u Documented by: Insulin Human Lispro (Humalog Kwikpen (Bk)) 0 unit SC ACHS [facility]; Protocol Last Admin: 05/11/19 06:34 Dose: Not Given Documented by: Linagliptin (Tradjenta) 5 mg PO DAILY [facility] Last Admin: 05/11/19 09:15 Dose: 5 mg Documented by: Ondansetron HCl (Zofran) 4 mg IV Q8H PRN PRN PRN Reason: NAUSEA/VOMITING Potassium Ch[facility] ([facility]) [facility] Last Admin: 05/11/19 09:14 Dose: 20 meq Documented by: Sertraline HCl (Zoloft) 100 mg PO DAILY [facility] Last Admin: 05/11/19 09:15 Dose: 100 mg Documented by: Sodium Chloride () 5 - 15 ml IV UD PRN PRN Reason: SALINE FLUSH Last Admin: 05/10/19 16:19 Dose: 10 ml Documented by: - Social History Smoking Status: Never smoker Alcohol: None Drugs: None - Family History Maternal History Items: - - No CAD Review of Systems HEENT: Denies: Head Aches, Sinus Congestion, Sinus Drainage Cardiovascular: Reports: Chest Pain, Chest Pressure, Chest Tightness, Orthopnea Respiratory: Reports: Cough Gastrointestinal: Reports: Abdominal Pain Genitourinary: Denies: Dysuria Musculoskeletal: Denies: Joint Pain, Joint Tenderness Skin: Denies: Rash, Wounds Neurological: Denies: Numbness, Tingling, Focal weakness Psychiatric: Reports: Anxiety Patient Problems: Active and Suspected Problems (Last Updated 05/07/19 @ 17:53 by Shakeel Groves DO) CHF (congestive heart failure) (Acute) - Physical Exam General: Alert, Oriented x3, Cooperative HEENT: Atraumatic Neck: JVD, Bilateral Lungs: Short of Breath Cardiovascular: Regular rate Abdomen: Bowel Sounds Present, Soft, Non Tender Extremities: No clubbing Skin: No rashes Musculoskeletal: No Tenderness to Palpation of Joints or Extremities Neurological: Cranial nerves II-XII grossly intact Psych/Mental Status: Normal Affect, Appropriate Vital Signs Temp Pulse Resp BP Pulse Ox 97.9 F 90 19 H 99/62 93 05/11/19 09:04 05/11/19 09:04 05/11/19 09:04 05/11/19 09:04 05/11/19 09:04 Oxygen Flow Rate (L/min) 2 Oxygen Delivery Method Room Air Weight: 120.9 kg Body Mass Index (BMI) 50.5 Orthostatic Vital Signs Start: 05/10/19 23:20 Freq: q24h Status: Active Protocol: Activity Type Activity Date Activity User E-Sign Co-Sign Detail Recorded Client Recorded Date Recorded By Document 05/10/19 23:20 [id number] 05/10/19 23:24 JM8 05/10/19 23:20 Orthostatic Vitals Sitting -Blood Pressure (90/60-120/80) 84/54 L -Extremity Use Right Arm -Pulse Rate (60-100) 85 Lying -Blood Pressure (90/60-120/80) 83/52 L -Extremity Use Right Arm -Pulse Rate (60-100) 88 Intake and Output for Last 24 Hours 05/09/19 05/10/19 05/11/19 23:59 23:59 23:59 Intake Total 1260 / 1260 743 / 743 60 / 60 Output Total 200 / 200 925 / 925 325 / 325 Balance 1060 / 1060 -182 / -182 -265 / -265 Microbiology Past 72 Hours 05/10/19 10:45 C. difficile DNA Amplification - Final Stool Laboratory Tests Past 24 Hrs 05/11/19 05/11/19 05:35 05:35 WBC 5.1 RBC 4.73 Hgb 12.7 Hct 42.3 MCV 89.4 MCH 26.8 L MCHC 30.0 L RDW 16.3 H RDW Differential 52.7 H Plt Count 165 MPV 11.8 Sodium 143 Potassium 3.8 Chloride 100 Carbon Dioxide 36.0 H Anion Gap 7 BUN 36 H Creatinine 2.02 H Estim Creat Clear Calc 20.50 Est GFR (MDRD) Af Amer 31 L Est GFR (MDRD) Non-Af 26 L BUN/Creatinine Ratio 17.8 Glucose 127 H Calcium 8.4 L POC Glucose 05/11/19 05/10/19 05/10/19 06:33 21:28 16:22 POC Glucose 127 H 227 H 285 H 05/10/19 11:53 POC Glucose 207 H Assessment/Plan All Active Problems (Last Updated 05/07/19 @ 17:53 by Shakeel Groves DO) CHF (congestive heart failure) (Acute) Non oliguric ALICIA on CKD III [facility] 1.4 -1.6 now ~2 with CRS type III-1. with Acute on chronic systolic CHF with associated acute hypoxia/dilated cardiomyopathy-chest x-ray admission with central vascular congestion. BNP 366. Status post AICD-placed in 2006 at [facility]. Continue Bumex drip no need of [employer] COMMISSIONS ANALYST Suspected JAMAR-given body habitus. Recommend outpatient polysomnogram. Overnight trending pulse ox. Type 2 diabetes mellitus-hold home metformin regimen. Continue Amaryl, Januvia regimen. Hemoglobin A1c 9.9%. Accu-Cheks before meals and at bedtime with sliding scale insulin. Discontinue metformin going forward given chronic renal insufficiency and severe cardiomyopathy. Hypertension-continue home Entresto regimen. Morbid obesity-encouraged diet and lifestyle modifications. Nutrition consult. Depression-continue home sertraline regimen.
--- NOTE | 2019-05-11 10:58 | CASEMGMT ---
JERO LOUIS NOTE: Spoke with Marge Latif RN CM @ [facility]/Dr Hussein's office. She is aware pt is still on a Bumex gtt and anticipated discharge by Tuesday05/14/19. She states wiill keep appt w/LENS GENERATING MACHINE TENDER @ Dr Hussein's office on 05/15/19 and plans are for pt to get set up with [facility] after that appt. Josh PICKARD RN CM
--- NOTE | 2019-05-11 11:04 | PN_ITS ---
Patient Problems: Active and Suspected Problems (Last Updated 05/07/19 @ 17:53 by Shakeel Groevs DO) CHF (congestive heart failure) (Acute) Vitals/I&O's: Vital Signs Temp Pulse Resp BP Pulse Ox 97.9 F 90 19 H 99/62 93 05/11/19 09:04 05/11/19 09:04 05/11/19 09:04 05/11/19 09:04 05/11/19 09:04 Oxygen Flow Rate (L/min) 1 Oxygen Delivery Method Room Air Weight: 266 lb 8.622 oz Body Mass Index (BMI) 50.5 Orthostatic Vital Signs Start: 05/10/19 23:20 Freq: q24h Status: Active Protocol: Activity Type Activity Date Activity User E-Sign Co-Sign Detail Recorded Client Recorded Date Recorded By Document 05/10/19 23:20 [id number] 05/10/19 23:24 JM8 05/10/19 23:20 Orthostatic Vitals Sitting -Blood Pressure (90/60-120/80) 84/54 L -Extremity Use Right Arm -Pulse Rate (60-100) 85 Lying -Blood Pressure (90/60-120/80) 83/52 L -Extremity Use Right Arm -Pulse Rate (60-100) 88 Intake and Output for Last 24 Hours 05/09/19 05/10/19 05/11/19 23:59 23:59 23:59 Intake Total 1260 / 1260 743 / 743 60 / 60 Output Total 200 / 200 925 / 925 325 / 325 Balance 1060 / 1060 -182 / -182 -265 / -265 Microbiology Past 72 Hours 05/10/19 10:45 Stool C. difficile DNA Amplification - Final Laboratory Results 05/10/19 11:53: POC Glucose 207 H 05/10/19 16:22: POC Glucose 285 H 05/10/19 21:28: POC Glucose 227 H 05/11/19 05:35: Sodium 143, Potassium 3.8, Chloride 100, Carbon Dioxide 36.0 H, Anion Gap 7, BUN 36 H, Creatinine 2.02 H, Estim Creat Clear Calc 20.50, Est GFR (MDRD) Af Amer 31 L, Est GFR (MDRD) Non-Af 26 L, BUN/Creatinine Ratio 17.8, Glucose 127 H, Calcium 8.4 L 05/11/19 05:35: WBC 5.1, RBC 4.73, Hgb 12.7, Hct 42.3, MCV 89.4, MCH 26.8 L, MCHC 30.0 L, RDW 16.3 H, RDW Differential 52.7 H, Plt Count 165, MPV 11.8 05/11/19 06:33: POC Glucose 127 H Current Medications Acetaminophen (Tylenol) 650 mg PO Q6H PRN PRN PRN Reason: Mild pain 1-3/Temp > 100.7 F Last Admin: 05/10/19 23:33 Dose: 650 mg Documented by: Albuterol Sulfate (Ventolin Aerosols) 2.5 mg INHALATION Q2H PRN PRN PRN Reason: SOB/Wheezing Albuterol/Ipratropium (Duoneb) 3 ml INHALATION Q6HWA.RT [facility] Last Admin: 05/11/19 07:01 Dose: 3 ml Documented by: Aspirin (Ecotrin) 81 mg PO DAILY@0800 [facility] Last Admin: 05/11/19 09:15 Dose: 81 mg Documented by: Dextrose (D50w Syringe) 0 gm IV X1 PRN; Protocol PRN Reason: Hypoglycemia Dextrose (D50w Syringe) 0 gm IV X1 PRN; Protocol PRN Reason: Hypoglycemia Glimepiride (Amaryl) 4 mg PO BIDCM [facility] Last Admin: 05/11/19 09:15 Dose: 4 mg Documented by: Glucagon () 1 mg IM .X1 PRN PRN Reason: Hypoglycemia Glucagon () 1 mg IM .X1 PRN PRN Reason: Hypoglycemia Heparin Sodium (Porcine) (Heparin Na) 5,000 unit SC Q8 [facility] Last Admin: 05/11/19 05:50 Dose: 5,000 unit Documented by: Bumetanide 25 mg/ (Miscellaneous Information) 100 mls @ 2 mls/hr CONT INF .Q50H [facility] Last Admin: 05/10/19 13:08 Dose: 2 mls/hr Documented by: Insulin Glargine (Lantus (Bkc)) 5 units SC BID [facility] Last Admin: 05/11/19 09:16 Dose: 5 u Documented by: Insulin Human Lispro (Humalog Kwikpen (Bk)) 0 unit SC ACHS [facility]; Protocol Last Admin: 05/11/19 06:34 Dose: Not Given Documented by: Linagliptin (Tradjenta) 5 mg PO DAILY [facility] Last Admin: 05/11/19 09:15 Dose: 5 mg Documented by: Midodrine (Proamatine) 5 mg PO TID [facility] Ondansetron HCl (Zofran) 4 mg IV Q8H PRN PRN PRN Reason: NAUSEA/VOMITING Potassium Chloride (K-Dur) 20 meq PO DAILYCM [facility] Last Admin: 05/11/19 09:14 Dose: 20 meq Documented by: Sertraline HCl (Zoloft) 100 mg PO DAILY [facility] Last Admin: 05/11/19 09:15 Dose: 100 mg Documented by: Sodium Chloride () 5 - 15 ml IV UD PRN PRN Reason: SALINE FLUSH Last Admin: 05/10/19 16:19 Dose: 10 ml Documented by: Medical Necessity - Tobacco Use Smoking Status: Never smoker Tobacco Use: Non-smoker Assessment/Plan All Active Problems (Last Updated 05/07/19 @ 17:53 by Shakeel Groves DO) CHF (congestive heart failure) (Acute)
[2019-05-11 11:36] LABS: Bedside Glucose 280 mg/dL (70-110)
[2019-05-11] MEDS: Insulin Lispro 100 UNIT/ML INSULN.PEN SC ×3 (12:22→22:05)
--- NOTE | 2019-05-11 13:40 | PCM.PROGNOTE ---
<Nicola Botello - Last Filed: 05/11/19 13:40> Patient Problems: Active and Suspected Problems (Last Updated 05/07/19 @ 17:53 by Shakeel Groves DO) CHF (congestive heart failure) (Acute) Subjective: Pt denies SOB/edema today. Still weak on her feet. Dry cough ongoing. No fever/chills. No arellano discomfort. No fever/ chills. No abd pain. No palp, CP, SAN, dizziness, LH. - Physical Exam General: Alert, Oriented x3, Cooperative HEENT: Atraumatic, PERRLA, EOMI, Normocephalic Neck: Supple, No JVD, Negative Carotid Bruits Lungs: Clear to auscultation, Diminished Cardiovascular: Regular rate, No murmurs Abdomen: Bowel Sounds Present, Soft, Non Tender Extremities: No edema, Capillary Refill Less than 3 Seconds Skin: No rashes, No breakdown Musculoskeletal: No Tenderness to Palpation of Joints or Extremities Neurological: Cranial nerves II-XII grossly intact Psych/Mental Status: Normal Affect, Appropriate, Alert and oriented to time, place, person, mood and affect Vital Signs Temp Pulse Resp BP Pulse Ox 97.9 F 96 19 H 112/72 93 05/11/19 09:04 05/11/19 12:20 05/11/19 09:04 05/11/19 12:20 05/11/19 09:04 Oxygen Flow Rate (L/min) 1 Oxygen Delivery Method Room Air Weight: 266 lb 8.622 oz Body Mass Index (BMI) 50.5 Orthostatic Vital Signs Start: 05/10/19 23:20 Freq: q24h Status: Active Protocol: Activity Type Activity Date Activity User E-Sign Co-Sign Detail Recorded Client Recorded Date Recorded By Document 05/10/19 23:20 [id number] 05/10/19 23:24 JM8 05/10/19 23:20 Orthostatic Vitals Sitting -Blood Pressure (90/60-120/80) 84/54 L -Extremity Use Right Arm -Pulse Rate (60-100) 85 Lying -Blood Pressure (90/60-120/80) 83/52 L -Extremity Use Right Arm -Pulse Rate (60-100) 88 Intake and Output for Last 24 Hours 05/09/19 05/10/19 05/11/19 23:59 23:59 23:59 Intake Total 1260 / 1260 743 / 743 270 / 270 Output Total 200 / 200 925 / 925 475 / 475 Balance 1060 / 1060 -182 / -182 -205 / -205 Microbiology Past 72 Hours 05/10/19 10:45 C. difficile DNA Amplification - Final Stool Laboratory Tests Past 24 Hrs 05/11/19 05/11/19 05:35 05:35 WBC 5.1 RBC 4.73 Hgb 12.7 Hct 42.3 MCV 89.4 MCH 26.8 L MCHC 30.0 L RDW 16.3 H RDW Differential 52.7 H Plt Count 165 MPV 11.8 Sodium 143 Potassium 3.8 Chloride 100 Carbon Dioxide 36.0 H Anion Gap 7 BUN 36 H Creatinine 2.02 H Estim Creat Clear Calc 20.50 Est GFR (MDRD) Af Amer 31 L Est GFR (MDRD) Non-Af 26 L BUN/Creatinine Ratio 17.8 Glucose 127 H Calcium 8.4 L POC Glucose 05/11/19 05/11/19 05/10/19 11:24 06:33 21:28 POC Glucose 280 H 127 H 227 H 05/10/19 16:22 POC Glucose 285 H Medical Necessity - Tobacco Use Smoking Status: Never smoker Tobacco Use: Non-smoker Assessment/Plan All Active Problems (Last Updated 05/07/19 @ 17:53 by Shakeel Groves DO) CHF (congestive heart failure) (Acute) 1. Acute on chronic systolic CHF - EF 20% - worsening renal function. Arellano placed. Nephrology following. Continue Bumex drip, I's and O's daily, daily weights. Poor diuresis, repeat chest x-ray in the morning. 2. ALICIA-discontinue nephrotoxic agents, nephrology following. 3. Suspected JAMAR-trending overnight pulse ox. Outpatient PSG 4. Type 2 diabetes-hold metformin-continue Amaryl and Tradjenta, A1c 9.9. Sliding scale insulin. 5. Hypertension-Bumex drip was held overnight as she did have some hypotension. Stable now. 6. Morbid obesity-nutrition consult 7. Depression-Zoloft DVT prophylaxis-heparin Discharge planning: When appropriate, home when stable. patient very debilitated however refuses to consider detention. She also cannot have home health care as she does not have a PCP. This patient was seen by Nicola Ayan PA-C under the supervision of Doctor Reji. <Timo Mendoza - Last Filed: 05/11/19 16:27> Subjective: Discussed with the patient regarding his diagnosis of advanced heart failure, EF 20% regarding goal of her life/advanced directive. She understood that she is not a candidate for heart transplant with multiple comorbidities advanced age and limited exercise capacity. Overnight, Bumex drip was stopped secondary to hypotension and feeling dizziness which has resolved. Bumex resumed in the morning. She agreed for palliative care consult. Objective: Intake and output -200 mL negative fluid balance on 05/10. Had 925 urine output. Today about -200 ml negative fluid balance - Physical Exam Vital Signs Temp Pulse Resp BP Pulse Ox 97.4 F L 93 18 97/61 94 05/11/19 14:45 05/11/19 15:19 05/11/19 14:45 05/11/19 14:45 05/11/19 14:45 Oxygen Flow Rate (L/min) 1 Oxygen Delivery Method Room Air Weight: 266 lb 8.622 oz Body Mass Index (BMI) 50.5 Orthostatic Vital Signs Start: 05/10/19 23:20 Freq: q24h Status: Active Protocol: Activity Type Activity Date Activity User E-Sign Co-Sign Detail Recorded Client Recorded Date Recorded By Document 05/10/19 23:20 [id number] [id number] 05/10/19 23:24 JM8 05/10/19 23:20 Orthostatic Vitals Sitting -Blood Pressure (90/60-120/80) 84/54 L -Extremity Use Right Arm -Pulse Rate (60-100) 85 Lying -Blood Pressure (90/60-120/80) 83/52 L -Extremity Use Right Arm -Pulse Rate (60-100) 88 Intake and Output for Last 24 Hours 05/09/19 05/10/19 05/11/19 23:59 23:59 23:59 Intake Total 1260 / 1260 743 / 743 270 / 270 Output Total 200 / 200 925 / 925 475 / 475 Balance 1060 / 1060 -182 / -182 -205 / -205 Microbiology Past 72 Hours 05/10/19 10:45 C. difficile DNA Amplification - Final Stool Laboratory Tests Past 24 Hrs 05/11/19 05/11/19 05:35 05:35 WBC 5.1 RBC 4.73 Hgb 12.7 Hct 42.3 MCV 89.4 MCH 26.8 L MCHC 30.0 L RDW 16.3 H RDW Differential 52.7 H Plt Count 165 MPV 11.8 Sodium 143 Potassium 3.8 Chloride 100 Carbon Dioxide 36.0 H Anion Gap 7 BUN 36 H Creatinine 2.02 H Estim Creat Clear Calc 20.50 Est GFR (MDRD) Af Amer 31 L Est GFR (MDRD) Non-Af 26 L BUN/Creatinine Ratio 17.8 Glucose 127 H Calcium 8.4 L POC Glucose 05/11/19 05/11/19 05/11/19 16:01 11:24 06:33 POC Glucose 195 H 280 H 127 H 05/10/19 05/10/19 21:28 16:22 POC Glucose 227 H 285 H Assessment/Plan This patient was seen in conjunction with BHARTI Petersen. I have independently interviewed and examined the patient and reviewed pertinent history, examination findings, laboratory and plan of management. I have reviewed the note and agree with the documented findings with the few additional points. In brief, patient is a 68-year-old female with history of chronic systolic heart failure, EF 20% status post AICD placement was admitted for progressive worsening of shortness of breath. Patient also has orthopnea and PND. Patient has other comorbidities including diabetes mellitus type 2, super obesity, anxiety/depression. Chest x-ray shows increased pulmonary vascular congestion. Echo was done reported as EF 20% with severe cysts multiple systolic dysfunction. Left atrium is enlarged. Patient had net 200 mL negative fluid balance in last 2 days. Bumex drip was temporarily held last night for hypotension associated with dizziness. Her blood pressures dropped in 70s that recovered after stopping blood pressure in the morning. Patient was started on midodrine by home care manager and Bumex drip resumed at 0.5 mg/h. Patient has Arellano catheter Patient also has wheezing probably from obstructive sleep apnea is more upper airway origin. On bronchodilator BUN/creatinine is slowly going up, currently 36/2.0. Code Visit Inpatient E&M: [id number] [facility] L3
--- NOTE | 2019-05-11 14:35 | CASEMGMT ---
Social Work Spoke with physician who states he had conversation with pt and she is agreeable to Palliative medicine. Referral made to Jorge at [facility] palliative medicine. They cannot see pt until she is established with a PCP. PCP appointment is on May 15. They will contact pt and inform her that they will see her sometime after her appointment with PCP. Information faxed. ANCA Santamaria
[2019-05-11] MEDS: Midodrine HCl 5 MG Tablet PO ×2 (14:47→22:05)
[2019-05-11] MEDS: 0.9% NaCl Peripheral Flush Adult/Peds IV (14:48)
[2019-05-11] MEDS: Acetaminophen 325 MG Tablet 650 MG PO ×2 (16:04→22:35)
[2019-05-11 16:11] LABS: Bedside Glucose 195 mg/dL (70-110)
[2019-05-11 22:16] LABS: Bedside Glucose 218 mg/dL (70-110)
[2019-05-12] VITALS (15 sets, daily range): BP systolic 97–108; BP diastolic 58–63; PULSE 62–95; RESP 16–19; TEMP 36.6–36.8; O2SAT 90–94
--- NOTE | 2019-05-12 05:55 | RAD_ITS ---
STUDY: X-RAY CHEST REASON FOR EXAM: Female, 68 years old. Congestive heart failure, short of breath TECHNIQUE: AP and lateral chest COMPARISON: 05/07/2019 FINDINGS: There is stable cardiac pacemaker. There are mild improving pulmonary opacities. There are small pleural effusions. There is stable mild cardiomegaly. Normal mediastinum and madan. Normal visualized pulmonary arteries. Normal visualized aortic arch and descending thoracic aorta. Normal visualized thoracic spine. Normal visualized ribs, clavicles, and shoulders. There is no demonstrated abnormality of the visualized soft tissue structures of the upper abdomen. RAD/Chest PA and Lateral IMPRESSION: Stable cardiac pacemaker Mild improving pulmonary opacities, improving pulmonary venous congestion, small pleural effusions Stable mild cardiomegaly Electronically Signed: Neptali Sethi, at 7:56 EDT Tel , Service support ,
[2019-05-12] MEDS: Ipratropium/Albuterol Sulfate 3 ML AMPUL.NEB INHALATION ×3 (06:43→19:07)
[2019-05-12] MEDS: Heparin Injection (Vial) 5,000 UNIT/ML VIAL 5000 UNIT SC ×3 (06:49→20:38)
[2019-05-12] MEDS: Midodrine HCl 5 MG Tablet PO ×3 (06:49→20:37)
[2019-05-12 06:50] LABS: Bedside Glucose 133 mg/dL (70-110)
[2019-05-12 07:26] LABS: Anion Gap 7 (5-15); BUN 38 mg/dL (7-18); BUN/Creat Ratio 20.7 RATIO (10-20); Calcium,Total 8.7 mg/dL (8.5-10.1); Chloride 99 mmol/L (98-107); Creatinine, Serum 1.84 mg/dL (0.55-1.02); EST Glomerular Filtration Rate 29 mL/min (>60); Est Glom Filt Rate - Afr Amer 35 mL/min (>60); Glucose 134 mg/dL (74-106); Potassium 3.9 mmol/L (3.5-5.1); Sodium Level 142 mmol/L (136-145)
[2019-05-12] MEDS: Glimepiride 4 MG Tablet PO ×2 (09:15→16:14)
[2019-05-12] MEDS: Aspirin E.C. 81 MG Tablet PO (09:15)
[2019-05-12] MEDS: Sertraline 100 MG Tablet PO (09:18)
[2019-05-12] MEDS: LINAGLIPTIN 5 MG TABLET PO (09:18)
[2019-05-12] MEDS: Insulin Lispro 100 UNIT/ML INSULN.PEN SC ×3 (10:57→20:38)
[2019-05-12 11:05] LABS: Bedside Glucose 228 mg/dL (70-110)
[2019-05-12] MEDS: Acetaminophen 325 MG Tablet 650 MG PO ×2 (14:14→20:37)
--- NOTE | 2019-05-12 14:18 | PCM.PROGNOTE ---
<Nicola Botello - Last Filed: 05/12/19 14:18> Patient Problems: Active and Suspected Problems (Last Updated 05/07/19 @ 17:53 by Shakeel Groves DO) CHF (congestive heart failure) (Acute) Subjective: Pt notes marked improvement. She has begun to have increased urinary output. No SOB today, No LE edema. No CP/tightness/palp/heaviness/pressure. She feels the bumex is working. She plans to have HHC and palliative care at discharge however must first establish PCP. She will continue to be diuresis with close monitoring of kidney function. - Physical Exam General: Alert, Oriented x3, Cooperative HEENT: Atraumatic, PERRLA, EOMI, Normocephalic Neck: Supple, No JVD, Negative Carotid Bruits Lungs: Diminished Cardiovascular: Regular rate, No murmurs Abdomen: Bowel Sounds Present, Soft, Non Tender, Obese Extremities: No edema, Capillary Refill Less than 3 Seconds Skin: No rashes, No breakdown Musculoskeletal: No Tenderness to Palpation of Joints or Extremities Neurological: Cranial nerves II-XII grossly intact Psych/Mental Status: Normal Affect, Appropriate, Alert and oriented to time, place, person, mood and affect Vital Signs Temp Pulse Resp BP Pulse Ox 97.9 F 91 16 106/58 L 94 05/12/19 12:50 05/12/19 13:15 05/12/19 13:15 05/12/19 12:50 05/12/19 12:50 Oxygen Flow Rate (L/min) 1 Oxygen Delivery Method Room Air Weight: 263 lb 3.711 oz Body Mass Index (BMI) 50.5 Orthostatic Vital Signs Start: 05/10/19 23:20 Freq: q24h Status: Active Protocol: Activity Type Activity Date Activity User E-Sign Co-Sign Detail Recorded Client Recorded Date Recorded By Document 05/11/19 23:00 CM [id number] 05/12/19 03:44 CM 05/11/19 23:00 Orthostatic Vitals Sitting -Blood Pressure (90/60-120/80) 110/62 -Extremity Use Right Arm Lying -Blood Pressure (90/60-120/80) 101/64 -Extremity Use Right Arm Intake and Output for Last 24 Hours 05/10/19 05/11/19 05/12/19 23:59 23:59 23:59 Intake Total 743 / 743 1160 / 1160 543.7 / 543.7 Output Total 925 / 925 1800 / 1800 2425 / 2425 Balance -182 / -182 -640 / -640 -1881.3 / -1881.3 Microbiology Past 72 Hours 05/10/19 10:45 C. difficile DNA Amplification - Final Stool Laboratory Tests Past 24 Hrs 05/12/19 06:22 Sodium 142 Potassium 3.9 Chloride 99 Carbon Dioxide 36.0 H Anion Gap 7 BUN 38 H Creatinine 1.84 H Estim Creat Clear Calc 22.50 Est GFR (MDRD) Af Amer 35 L Est GFR (MDRD) Non-Af 29 L BUN/Creatinine Ratio 20.7 H Glucose 134 H Calcium 8.7 POC Glucose 05/12/19 05/12/19 05/11/19 10:56 06:40 22:02 POC Glucose 228 H 133 H 218 H 05/11/19 16:01 POC Glucose 195 H Medical Necessity - Tobacco Use Smoking Status: Never smoker Tobacco Use: Non-smoker Assessment/Plan All Active Problems (Last Updated 05/07/19 @ 17:53 by Shakeel Groves DO) CHF (congestive heart failure) (Acute) 1. Acute on chronic systolic CHF - EF 20% - output increased, renal function improved. Maintain Bumex as long as blood pressure well tolerated. Continue to trend CO2, BUN, creatinine. 2. ALICIA-discontinue nephrotoxic agents, nephrology following. Renal function slightly improved with diuresis. 3. Suspected JAMAR-trending overnight pulse ox. Outpatient PSG 4. Type 2 diabetes-hold metformin-continue Amaryl and Tradjenta, A1c 9.9. Sliding scale insulin. 5. Hypertension-low normal. 6. Morbid obesity-nutrition consult 7. Depression-Zoloft DVT prophylaxis-heparin Discharge planning: When appropriate, home when stable. patient very debilitated however refuses to consider group home. She also cannot have home health care or palliative care as she does not have a PCP-we have arranged for her to have a family medicine doctor at discharge, it will be up to her to keep her appointment. This patient was seen by Nicola Botello PA-C under the supervision of Doctor Mendoza. <Timo Mendoza - Last Filed: 05/12/19 14:39> Subjective: Seen and examined. Patient had good diuresis. About 1800 mL negative fluid balance until today. -650 mL negative fluid balance yesterday. - Physical Exam General: Alert, Oriented x3, Cooperative HEENT: Atraumatic, PERRLA, EOMI, Normocephalic Neck: Supple, No JVD, Negative Carotid Bruits Lungs: Diminished - Entry is diminished in bilateral lung bases., Wheezes - Wheezing present from throat. Cardiovascular: Regular rate, Regular Rhythm, Normal S1, Normal S2, No murmurs Abdomen: Bowel Sounds Present, Soft, Non Tender Extremities: Capillary Refill Less than 3 Seconds Skin: No rashes, No breakdown Musculoskeletal: No Tenderness to Palpation of Joints or Extremities, Arthritic Changes, Muscle Wasting, - - Patient is physically decompensated with morbid obesity Neurological: Cranial nerves II-XII grossly intact, Deep Tendon Reflexes 2+/4 and Symmetrical, Neuro grossly intact, Motor Exam 5/5 strength throughout Psych/Mental Status: Normal Affect, Appropriate Vital Signs Temp Pulse Resp BP Pulse Ox 97.9 F 91 16 106/58 L 94 05/12/19 12:50 05/12/19 13:15 05/12/19 13:15 05/12/19 12:50 05/12/19 12:50 Oxygen Flow Rate (L/min) 1 Oxygen Delivery Method Room Air Weight: 263 lb 3.711 oz Body Mass Index (BMI) 50.5 Orthostatic Vital Signs Start: 05/10/19 23:20 Freq: q24h Status: Active Protocol: Activity Type Activity Date Activity User E-Sign Co-Sign Detail Recorded Client Recorded Date Recorded By Document 05/11/19 23:00 CM [id number] 05/12/19 03:44 CM 05/11/19 23:00 Orthostatic Vitals Sitting -Blood Pressure (90/60-120/80) 110/62 -Extremity Use Right Arm Lying -Blood Pressure (90/60-120/80) 101/64 -Extremity Use Right Arm Intake and Output for Last 24 Hours 05/10/19 05/11/19 05/12/19 23:59 23:59 23:59 Intake Total 743 / 743 1160 / 1160 543.7 / 543.7 Output Total 925 / 925 1800 / 1800 2425 / 2425 Balance -182 / -182 -640 / -640 -1881.3 / -1881.3 Microbiology Past 72 Hours 05/10/19 10:45 C. difficile DNA Amplification - Final Stool Laboratory Tests Past 24 Hrs 05/12/19 06:22 Sodium 142 Potassium 3.9 Chloride 99 Carbon Dioxide 36.0 H Anion Gap 7 BUN 38 H Creatinine 1.84 H Estim Creat Clear Calc 22.50 Est GFR (MDRD) Af Amer 35 L Est GFR (MDRD) Non-Af 29 L BUN/Creatinine Ratio 20.7 H Glucose 134 H Calcium 8.7 POC Glucose 05/12/19 05/12/19 05/11/19 10:56 06:40 22:02 POC Glucose 228 H 133 H 218 H 05/11/19 16:01 POC Glucose 195 H Assessment/Plan This patient was seen in conjunction with BHARTI Petersen. I have independently interviewed and examined the patient and reviewed pertinent history, examination findings, laboratory and plan of management. I have reviewed the note and agree with the documented findings with the few additional points. In brief, patient is a 68-year-old female with history of chronic systolic heart failure, EF 20% status post AICD placement was admitted for progressive worsening of shortness of breath. Patient also has orthopnea and PND. Patient has other comorbidities including diabetes mellitus type 2, super obesity, anxiety/depression. Chest x-ray shows increased pulmonary vascular congestion. Echo was done reported as EF 20% with severe cysts multiple systolic dysfunction. Left atrium is enlarged. Patient was started on midodrine by underground mine machinery mechanic and Bumex drip resumed at 0.5 mg/h. Patient had a good 89 mL diuresis on 05/11 and 400 mL today. Overall, patient is feeling better. Kidney function is slightly better; BUN/creatinine 38/1.84 Patient has Hightower catheter. Patient also has wheezing probably from obstructive sleep apnea is more upper airway origin. On bronchodilator Microbiology Past 72 Hours 05/10/19 10:45 Stool C. difficile DNA Amplification - Final Laboratory Results 05/11/19 16:01: POC Glucose 195 H 05/11/19 22:02: POC Glucose 218 H 05/12/19 06:22: Sodium 142, Potassium 3.9, Chloride 99, Carbon Dioxide 36.0 H, Anion Gap 7, BUN 38 H, Creatinine 1.84 H, Estim Creat Clear Calc 22.50, Est GFR (MDRD) Af Amer 35 L, Est GFR (MDRD) Non-Af 29 L, BUN/Creatinine Ratio 20.7 H, Glucose 134 H, Calcium 8.7 05/12/19 06:40: POC Glucose 133 H 05/12/19 10:56: POC Glucose 228 H Code Visit Inpatient E&M: 10124 Subs Hosp L3
[2019-05-12 16:20] LABS: Bedside Glucose 253 mg/dL (70-110)
[2019-05-12 21:15] LABS: Bedside Glucose 306 mg/dL (70-110)
[2019-05-12] MEDS: Bumetanide 12.5 MG in CONTAINER,EMPTY 1 BAG 2 MG CONT INF (22:14)
[2019-05-13] VITALS (15 sets, daily range): BP systolic 97–120; BP diastolic 56–66; PULSE 81–102; RESP 16–20; TEMP 36.5–37; O2SAT 92–95
[2019-05-13] MEDS: Heparin Injection (Vial) 5,000 UNIT/ML VIAL 5000 UNIT SC ×3 (06:04→21:38)
[2019-05-13] MEDS: Midodrine HCl 5 MG Tablet PO ×3 (06:04→21:38)
[2019-05-13] MEDS: 0.9% NaCl Peripheral Flush Adult/Peds IV (06:20)
[2019-05-13 06:38] LABS: Anion Gap 6 (5-15); BUN 44 mg/dL (7-18); BUN/Creat Ratio 22.7 RATIO (10-20); Calcium,Total 9.1 mg/dL (8.5-10.1); Chloride 99 mmol/L (98-107); Creatinine, Serum 1.94 mg/dL (0.55-1.02); EST Glomerular Filtration Rate 27 mL/min (>60); Est Glom Filt Rate - Afr Amer 33 mL/min (>60); Estimated Creatinine Clearance 21.34 ml/min; Glucose 69 mg/dL (74-106); Potassium 3.6 mmol/L (3.5-5.1); Sodium Level 140 mmol/L (136-145)
[2019-05-13 06:50] LABS: Bedside Glucose 76 mg/dL (70-110)
[2019-05-13] MEDS: Ipratropium/Albuterol Sulfate 3 ML AMPUL.NEB INHALATION ×3 (07:02→19:29)
[2019-05-13 08:10] LABS: Bedside Glucose 130 mg/dL (70-110)
[2019-05-13] MEDS: Aspirin E.C. 81 MG Tablet PO (08:42)
[2019-05-13] MEDS: Glimepiride 4 MG Tablet PO ×2 (08:42→16:57)
[2019-05-13] MEDS: LINAGLIPTIN 5 MG TABLET PO (08:43)
[2019-05-13] MEDS: Sertraline 100 MG Tablet PO (08:43)
[2019-05-13 09:51] LABS: Magnesium 1.7 mg/dL (1.6-2.6)
[2019-05-13 11:35] LABS: Bedside Glucose 257 mg/dL (70-110)
[2019-05-13] MEDS: Insulin Lispro 100 UNIT/ML INSULN.PEN SC ×3 (12:26→21:38)
--- NOTE | 2019-05-13 14:25 | NURSING ---
IV bumex drip discontinued at this time.
[2019-05-13] MEDS: Bumetanide 2 MG Tablet PO ×2 (14:30→21:38)
[2019-05-13] MEDS: Acetaminophen 325 MG Tablet 650 MG PO (14:53)
--- NOTE | 2019-05-13 14:56 | PN_ITS ---
<Nicola Botello - Last Filed: 05/13/19 14:56> Patient Problems: Active and Suspected Problems (Last Updated 05/07/19 @ 17:53 by Shakeel Groves DO) CHF (congestive heart failure) (Acute) Subjective: Pt continues to feel better with regards to her SOB. No CP/tightness/presure. No dizziness/LH. No palp. No LE edema. Hightower out today and voiding trial, bumex to PO. - Physical Exam General: Alert, Oriented x3, Cooperative HEENT: Atraumatic, PERRLA, EOMI, Normocephalic Neck: Supple, No JVD, Negative Carotid Bruits Lungs: Diminished Cardiovascular: Regular rate, No murmurs Abdomen: Bowel Sounds Present, Soft, Non Tender, Obese Extremities: No edema, Capillary Refill Less than 3 Seconds Skin: No rashes, No breakdown Musculoskeletal: No Tenderness to Palpation of Joints or Extremities Neurological: Cranial nerves II-XII grossly intact Psych/Mental Status: Normal Affect, Appropriate, Alert and oriented to time, place, person, mood and affect Vital Signs Temp Pulse Resp BP Pulse Ox 98.1 F 100 16 113/66 93 05/13/19 14:35 05/13/19 14:35 05/13/19 14:35 05/13/19 14:35 05/13/19 14:35 Oxygen Flow Rate (L/min) 1 Oxygen Delivery Method Room Air Weight: 257 lb 0.944 oz Body Mass Index (BMI) 50.5 Intake and Output for Last 24 Hours 05/11/19 05/12/19 05/13/19 23:59 23:59 23:59 Intake Total 1160 / 1160 921.7 / 921.7 562 / 562 Output Total 1800 / 1800 3075 / 3075 1850 / 1850 Balance -640 / -640 -2153.3 / -2153.3 -1288 / -1288 Microbiology Past 72 Hours 05/10/19 10:45 C. difficile DNA Amplification - Final Stool Laboratory Tests Past 24 Hrs 05/13/19 05/13/19 05:13 05:13 Sodium 140 Potassium 3.6 Chloride 99 Carbon Dioxide 35.0 H Anion Gap 6 BUN 44 H Creatinine 1.94 H Estim Creat Clear Calc 21.34 Est GFR (MDRD) Af Amer 33 L Est GFR (MDRD) Non-Af 27 L BUN/Creatinine Ratio 22.7 H Glucose 69 L Calcium 9.1 Magnesium 1.7 POC Glucose 05/13/19 05/13/19 05/13/19 11:29 08:07 06:46 POC Glucose 257 H 130 H 76 05/12/19 05/12/19 20:35 16:11 POC Glucose 306 H 253 H Medical Necessity - Tobacco Use Smoking Status: Never smoker Tobacco Use: Non-smoker Assessment/Plan All Active Problems (Last Updated 05/07/19 @ 17:53 by Shakeel Groves DO) CHF (congestive heart failure) (Acute) 1. Acute on chronic systolic CHF - EF 20% - good urine output, now bump in Cr. Bumex to PO. Hightower out. Voiding trial. CXR yesterday showed improvement in lungs. 2. ALICIA-nephro following. bumex to PO. 3. Suspected JAMAR-trending overnight pulse ox. Outpatient PSG 4. Type 2 diabetes-SSI + long acting. Home on this plus amaryl as renal function worse. Titrate to response. 5. Hypertension-low normal. 6. Morbid obesity-nutrition consult 7. Depression-Zoloft DVT prophylaxis-heparin Discharge planning: When appropriate, home when stable. patient very debilitated however refuses to consider retirement. She also cannot have home health care or palliative care as she does not have a PCP-we have arranged for her to have a family medicine doctor at discharge, it will be up to her to keep her appointment. This patient was seen by Nicola Botello PA-C under the supervision of Doctor Reji. <Timo Mendoza - Last Filed: 05/13/19 16:09> Subjective: Patient lost about 20 pounds since admission. Had about 3 L diuresis yesterday and 18 at 50 mL and 2 afternoon. Bumex drip discontinued. Started on Bumex intermittent oral 2 mg every 8 hourly. Patient feels much better. Hightower catheter discontinued Objective: General: Alert, Oriented x3, Cooperative HEENT: Atraumatic, PERRLA, EOMI, Normocephalic Neck: Supple, No JVD, Negative Carotid Bruits Lungs: Diminished -air entry is diminished in bilateral lung bases although much improved than before. Cardiovascular: Regular rate, Regular Rhythm, Normal S1, Normal S2, No murmurs Abdomen: Bowel Sounds Present, Soft, Non Tender Extremities: Capillary Refill Less than 3 Seconds Skin: No rashes, No breakdown Musculoskeletal: No Tenderness to Palpation of Joints or Extremities, Arthritic Changes, Muscle Wasting, Patient is physically decompensated with morbid obesity Neurological: Cranial nerves II-XII grossly intact, Deep Tendon Reflexes 2+/4 and Symmetrical, Neuro grossly intact, Motor Exam 5/5 strength throughout Psych/Mental Status: Normal Affect, Appropriate - Physical Exam Vital Signs Temp Pulse Resp BP Pulse Ox 98.1 F 100 16 113/66 93 05/13/19 14:35 05/13/19 15:09 05/13/19 14:35 05/13/19 14:35 05/13/19 14:35 Oxygen Flow Rate (L/min) 1 Oxygen Delivery Method Room Air Weight: 257 lb 0.944 oz Body Mass Index (BMI) 50.5 Intake and Output for Last 24 Hours 05/11/19 05/12/19 05/13/19 23:59 23:59 23:59 Intake Total 1160 / 1160 921.7 / 921.7 562 / 562 Output Total 1800 / 1800 3075 / 3075 1850 / 1850 Balance -640 / -640 -2153.3 / -2153.3 -1288 / -1288 Microbiology Past 72 Hours 05/10/19 10:45 C. difficile DNA Amplification - Final Stool Laboratory Tests Past 24 Hrs 05/13/19 05/13/19 05:13 05:13 Sodium 140 Potassium 3.6 Chloride 99 Carbon Dioxide 35.0 H Anion Gap 6 BUN 44 H Creatinine 1.94 H Estim Creat Clear Calc 21.34 Est GFR (MDRD) Af Amer 33 L Est GFR (MDRD) Non-Af 27 L BUN/Creatinine Ratio 22.7 H Glucose 69 L Calcium 9.1 Magnesium 1.7 POC Glucose 05/13/19 05/13/19 05/13/19 11:29 08:07 06:46 POC Glucose 257 H 130 H 76 05/12/19 05/12/19 20:35 16:11 POC Glucose 306 H 253 H Assessment/Plan This patient was seen in conjunction with BHARTI Petersen. I have independently interviewed and examined the patient and reviewed pertinent history, examination findings, laboratory and plan of management. I have reviewed the note and agree with the documented findings with the few additional points. In brief, patient is a 68-year-old female with history of chronic systolic heart failure, EF 20% status post AICD placement was admitted for progressive worsening of shortness of breath. Patient also has orthopnea and PND. Patient has other comorbidities including diabetes mellitus type 2, super obesity, anxiety/depression. Chest x-ray shows increased pulmonary vascular congestion. Echo was done reported as EF 20% with severe cysts multiple systolic dysfunction. Left atrium is enlarged. Patient was started on midodrine by adapted physical education teacher. Bumex drip discontinued. Patient had about 20 pounds weight loss on diuresis. On Bumex 2 mg p.o. every 8 hourly. BUN/creatinine remains stable although slight elevation. Continue midodrine. Patient has Hightower catheter. Patient also has wheezing probably from obstructive sleep apnea is more upper airway origin. Resolved on bronchodilator. Patient states she needs bronchodilator nebulization machine and prescription for DuoNeb. Possible/anticipate discharge tomorrow. Code Visit Inpatient E&M: 59417 Subs Hosp L3
--- NOTE | 2019-05-13 16:02 | PCM.PROGNOTE ---
Patient Problems: Active and Suspected Problems (Last Updated 05/07/19 @ 17:53 by Shakeel Groves DO) CHF (congestive heart failure) (Acute) Subjective: no sob/cp - Physical Exam Vital Signs Temp Pulse Resp BP Pulse Ox 98.1 F 100 16 113/66 93 05/13/19 14:35 05/13/19 15:09 05/13/19 14:35 05/13/19 14:35 05/13/19 14:35 Oxygen Flow Rate (L/min) 1 Oxygen Delivery Method Room Air Weight: 116.6 kg Body Mass Index (BMI) 50.5 Intake and Output for Last 24 Hours 05/11/19 05/12/19 05/13/19 23:59 23:59 23:59 Intake Total 1160 / 1160 921.7 / 921.7 562 / 562 Output Total 1800 / 1800 3075 / 3075 1850 / 1850 Balance -640 / -640 -2153.3 / -2153.3 -1288 / -1288 Microbiology Past 72 Hours 05/10/19 10:45 C. difficile DNA Amplification - Final Stool Laboratory Tests Past 24 Hrs 05/13/19 05/13/19 05:13 05:13 Sodium 140 Potassium 3.6 Chloride 99 Carbon Dioxide 35.0 H Anion Gap 6 BUN 44 H Creatinine 1.94 H Estim Creat Clear Calc 21.34 Est GFR (MDRD) Af Amer 33 L Est GFR (MDRD) Non-Af 27 L BUN/Creatinine Ratio 22.7 H Glucose 69 L Calcium 9.1 Magnesium 1.7 POC Glucose 05/13/19 05/13/19 05/13/19 11:29 08:07 06:46 POC Glucose 257 H 130 H 76 05/12/19 05/12/19 20:35 16:11 POC Glucose 306 H 253 H Medical Necessity - Tobacco Use Smoking Status: Never smoker Tobacco Use: Non-smoker Assessment/Plan All Active Problems (Last Updated 05/07/19 @ 17:53 by Shakeel Groves DO) CHF (congestive heart failure) (Acute) ALICIA likely CRS CKD 3 baseline cr 1.4-1.6 HF continue bumex tid Scr 1.9 stable avoid nephrotoxins bp ok monitor on midodrine
[2019-05-13 16:20] LABS: Bedside Glucose 232 mg/dL (70-110)
[2019-05-13 22:21] LABS: Bedside Glucose 235 mg/dL (70-110)
[2019-05-14] VITALS (8 sets, daily range): BP systolic 108–117; BP diastolic 66–70; PULSE 88–94; RESP 16; TEMP 36.4–36.7; O2SAT 91–95
[2019-05-14] MEDS: Heparin Injection (Vial) 5,000 UNIT/ML VIAL 5000 UNIT SC (06:28)
[2019-05-14] MEDS: Midodrine HCl 5 MG Tablet PO (06:28)
[2019-05-14] MEDS: Bumetanide 2 MG Tablet PO (06:28)
[2019-05-14] MEDS: Insulin Lispro 100 UNIT/ML INSULN.PEN SC ×2 (06:29→11:55)
[2019-05-14 07:01] LABS: Anion Gap 5 (5-15); BUN 47 mg/dL (7-18); BUN/Creat Ratio 22.1 RATIO (10-20); Calcium,Total 9.2 mg/dL (8.5-10.1); Chloride 97 mmol/L (98-107); Creatinine, Serum 2.13 mg/dL (0.55-1.02); EST Glomerular Filtration Rate 24 mL/min (>60); Est Glom Filt Rate - Afr Amer 29 mL/min (>60); Estimated Creatinine Clearance 19.44 ml/min; Glucose 163 mg/dL (74-106); Potassium 3.7 mmol/L (3.5-5.1); Sodium Level 137 mmol/L (136-145)
[2019-05-14] MEDS: Sertraline 100 MG Tablet PO (08:04)
[2019-05-14] MEDS: Glimepiride 4 MG Tablet PO (08:04)
[2019-05-14] MEDS: LINAGLIPTIN 5 MG TABLET PO (08:04)
[2019-05-14] MEDS: Aspirin E.C. 81 MG Tablet PO (08:04)
--- NOTE | 2019-05-14 10:33 | CASEMGMT ---
JERO LOUIS NOTE: To room to talk with pt. Discussed appt with EMULSIFICATION OPERATOR @ Dr Hussein's office tomorrow and pt states talked to her friend and her friend is able to provide transportation to the appt tomorrow. Pt has the DC appt sheet @ her bedside with appt date/time/address. Pt states her friend also reviewed this information with her yesterday. Pt confirms she does have a working nebulizer at home and just needs a script for the aerosol medication. BHARTI Berumen, made aware. Call placed to Marge Latif RN CM, @ Dr Hussein's office. msg left to let her know pt is being discharged today and that pt states she has transportation to the appt has been arranged. JERO LOUIS notified by DIETER Arzola, that pt's Passport CM, Pearl Riggs, informed her that they have sent a referral for Visiting Physicians for pt to be able to have a physician follow pt in her own home. Message left on Marge Latif's re: this as well but that this has not been established/confirmed yet, so pt should continue to follow w/Dr Hussein until further arrangements have been made. Call placed to [facility] and spoke with PRETTY Isaac. She was made aware pt is being discharged today and plans are still for pt to see EMULSIFICATION OPERATOR @ Dr Hussein's office tomorrow and then they are planning on setting up HHC thereafter. Home oxygen qualification testing has been completed and pt does not qualify for Home O2. Josh PICKARD RN, CM
--- NOTE | 2019-05-14 11:01 | PCM.PN.REN ---
Patient Problems: Active and Suspected Problems (Last Updated 05/07/19 @ 17:53 by Shakeel Groves DO) CHF (congestive heart failure) (Acute) Subjective: No nausea . No vomiting. No SOB. No CP - Physical Exam General: Alert, Oriented x3 HEENT: Atraumatic Oral: Moist Mucosa Neck: Supple, No JVD Lungs: Clear to auscultation, Normal air movement, No rhonchi, No wheeze Cardiovascular: Regular rate, Regular Rhythm, Normal S1, Normal S2 Abdomen: Bowel Sounds Present, Soft, Non Tender, Non-Distended Extremities: No clubbing, No cyanosis, No edema Skin: No rashes Musculoskeletal: No Tenderness to Palpation of Joints or Extremities Lymphatic: No Cervical, Supraclavicular, or Inguinal Adenopathy Neurological: Cranial nerves II-XII grossly intact, Neuro grossly intact Psych/Mental Status: Normal Affect Vital Signs Temp Pulse Resp BP Pulse Ox 97.7 F L 88 16 117/66 95 05/14/19 08:07 05/14/19 08:07 05/14/19 08:07 05/14/19 08:07 05/14/19 10:09 Oxygen Flow Rate (L/min) 1 Oxygen Delivery Method Room Air Weight: 115.8 kg Body Mass Index (BMI) 50.5 Intake and Output for Last 24 Hours 05/12/19 05/13/19 05/14/19 23:59 23:59 23:59 Intake Total 921.7 / 921.7 1058.3 / 1258.3 200 / 200 Output Total 3075 / 3075 2100 / 2100 300 / 300 Balance -2153.3 / -2153.3 -1041.7 / -841.7 -100 / -100 Laboratory Tests Past 24 Hrs 05/14/19 05:15 Sodium 137 Potassium 3.7 Chloride 97 L Carbon Dioxide 35.0 H Anion Gap 5 BUN 47 H Creatinine 2.13 H Estim Creat Clear Calc 19.44 Est GFR (MDRD) Af Amer 29 L Est GFR (MDRD) Non-Af 24 L BUN/Creatinine Ratio 22.1 H Glucose 163 H Calcium 9.2 POC Glucose 05/13/19 05/13/19 05/13/19 21:37 16:09 11:29 POC Glucose 235 H 232 H 257 H Medical Necessity - Tobacco Use Smoking Status: Never smoker Tobacco Use: Non-smoker Assessment/Plan All Active Problems (Last Updated 05/07/19 @ 17:53 by Shakeel Groves DO) CHF (congestive heart failure) (Acute) ALICIA on CKD stage 3. 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 Cr improved with diuresis. Pt was switched to oral Bumex 2 mg TID on .. Last Cr trend 1.98->2.13 mg.dL Ok to d.c patient from Nephro stand point. Please d/c patient on Bumex 1 mg TID Check renal function in 3 days. Will arrange for office follow up in 2-3 weeks. 2- CHF: Last echo showed EF 20%. Improved. Now compensating. continue Bumex as above Continue 2000 mg Na intake and limited fluid intake of 1200 ml daily Renal team will continue to follow Please call if any question d/w Nicola Nash MD
--- NOTE | 2019-05-14 11:08 | DCINST_ITS ---
- Discharge Diagnoses Current Active Problems: Current Active and Chronic Problems (Last Updated 05/07/19 @ 17:53 by Shakeel Groves DO) CHF (congestive heart failure) (Acute) You will use the following diet at home:: Calorie/Carbohydrate Controlled (specify 1200, 1400, etc) - 2000 aida / day, Cardiac - 9028-0037 mg sodium daily Your food should be the consistency of: Regular Your liquids should be the consistency of: Regular/Thin Discharge Activity: Return to Normal Activity Allergies/Adverse Reactions: Allergies No Known Allergies Allergy (Verified 05/07/19 12:21) Medications to take at Discharge Aspirin [Aspir 81] 81 mg PO DAILY 05/07/19 Glimepiride [Amaryl] 4 mg PO BID 05/07/19 Sertraline HCl 100 mg PO DAILY 05/07/19 Sitagliptin Phosphate [Januvia] 25 mg PO DAILY 05/07/19 Albuterol Aerosols [Ventolin Aerosols] 2.5 mg INHALATION Q6H PRN PRN #120 vial.neb. 05/14/19 Bumetanide [Bumex] 1 mg PO TID #180 tab 05/14/19 Insulin Glargine [Lantus SoloStar Pen] 10 units SUBCUT BID #1 pen 05/14/19 Midodrine HCl [Proamatine] 5 mg PO TID #90 tab 05/14/19 Potassium Chloride [K-Dur] 20 meq PO DAILYCM #30 tab 05/14/19 The following prescriptions were given: Bumetanide [Bumex] 1 mg PO TID #180 tab Transmission Status: Pending to [facility] #30 Potassium Chloride [K-Dur] 20 meq PO DAILYCM #30 tab Transmission Status: Pending to [facility] #30 Insulin Glargine [Lantus SoloStar Pen] 10 units SUBCUT BID #1 pen Transmission Status: Pending to [facility] #30 Midodrine HCl [Proamatine] 5 mg PO TID #90 tab Transmission Status: Pending to [facility] #30 Albuterol Aerosols [Ventolin Aerosols] 2.5 mg INHALATION Q6H PRN PRN #120 vial.neb. PRN Reason: SOB/Wheezing Transmission Status: Pending to [facility] #30 Primary Care Physician: Care Physician,No Primary [Primary Care Provider] - Test Results: Test results from this visit will be discussed in further detail at your follow- up appointment, if applicable. Please Follow Up With: Benita Hussein MD When: 1 day Please Follow Up With: Morena Nash MD When: 2 weeks Proposed Discharge Date: 05/14/19
--- NOTE | 2019-05-14 11:21 | CASEMGMT ---
DIETER received a return call from Karen Riggs at [facility]. She said patient does not have any services set up yet as she just came to this area. She was approved for 8 hours of aide services, 14 home delivered meals, and a medical alert button, but this cannot be done until she is home. DIETER told her patient is being discharged today. JERO LOUIS set up an appt for her with [facility] Dr so she can have a PCP to sign home health orders. [facility] will then arrange for home health. She said that patient asked for a Visiting Physician, but this has not yet been arranged. DIETER notified Samantha NOGUEIRA CM of this information. Plan: Home with Passport services. New PCP appt May 15 at [facility] and [facility] is then supposed to arrange home health. Ness HERMAN MSW
[2019-05-14 11:51] LABS: Bedside Glucose 155 mg/dL (70-110)
[2019-05-14 12:51] LABS: Bedside Glucose 166 mg/dL (70-110)
--- NOTE | 2019-05-14 15:01 | PCM.DC.SUM ---
<Nicola Botello - Last Filed: 05/14/19 15:01> Discharge Date and Diagnosis Date of Admission: 05/07/19 Date of Discharge: 05/14/19 - Primary Discharge Diagnosis Acute systolic CHF exacerbation CM, unclear type, defibrillator in place ALICIA 2/2 CHF exacerbation, on CKD III T2DM HTN Morbid obesity Depression Hospital Course and Treatment Imaging Results: RAD/Chest PA and Lateral IMPRESSION: Central vascular congestion. RAD/Chest PA and Lateral IMPRESSION: Stable cardiac pacemaker Mild improving pulmonary opacities, improving pulmonary venous congestion, small pleural effusions Stable mild cardiomegaly Echo: Interpretation Summary The study was technically difficult. Mildly dilated left ventricle. Severe segmental systolic dysfunction (see wall motion). The estimated ejection fraction is 20 %. The left atrium appears enlarged. Trivial mitral valve insufficiency. Trivial tricuspid valve insufficiency. Mild focal aortic valve calcification. Unable to estimate RV systolic pressure/pulmonary artery pressure due to technically difficult study. Unable to assess diastolic dysfunction. ICD or pacer leads identified within the right ventricle. Consults: Nephro - [facility] Operations: None Procedures: 2-D Echocardiogram Summary of Care Provided: Hospital course: The patient is a 68 year old F with pmhx as above who presented to the ER with c/o shortness of breath, worse with exertion, and dizziness on standing. She had no lower extremity edema, however she did have increased orthopnea over the past several weeks. She was 80% on room air on presentation to the ER. Chest x-ray was consistent with CHF. She was admitted for CHF of unclear type. She is placed on IV Lasix and initially had poor response. She underwent an echocardiogram which demonstrated an EF of 20%, consistent with likely history of ischemic cardiomyopathy as she has a defibrillator. Has underlying kidney disease, likely stage III, and her renal function worsened with diuresis initially, although the patient had little output. Nephrology was consulted. The patient was placed on a Bumex drip. After the Bumex drip was started she had significant diuresis and initially improvement in her renal function. Her symptoms of shortness of breath drastically improved. She was transitioned to p.o. Bumex 3 times daily. The patient was felt stable for discharge. She was very weak and debilitated and has difficulty walking even a few steps on her own. We recommended retirement. The patient strongly refused to consider retirement. We recommended home health care and the patient was agreeable, however we could not set this up at this time as the patient does not have a family medicine doctor. We arranged for her to have an appointment with a local PCP the day after discharge so that she may have home health care arranged. We assessed her for oxygen needs, she did not have any need for oxygen at rest or with exertion. She does likely have underlying obstructive sleep apnea due to her risk factors, she should get an outpatient PSG. She was discharged home on oral Bumex, potassium, long-acting insulin which we added to assist with her glycemic control, midodrine as she had hypotension with diuresis, albuterol for her nebulizer at home, we also advised her to discontinue metformin and Entresto due to her worsening renal function. Nephrology recommends that she have a BMP and repeat chest x-ray in 3 days, they recommend that she follows up in the office in 2 to 3 weeks, she also needs to follow-up with her PCP tomorrow. This patient was seen by Nicola Botello PA-C under the supervision of Doctor Mendoza. [] - Physical Exam General: Alert, Oriented x3, Cooperative HEENT: Atraumatic, PERRLA, EOMI, Normocephalic Neck: Supple, No JVD, Negative Carotid Bruits Lungs: Clear to auscultation, Normal air movement Cardiovascular: Regular rate, No murmurs Abdomen: Bowel Sounds Present, Soft, Non Tender, Obese Extremities: No edema, Capillary Refill Less than 3 Seconds Skin: No rashes, No breakdown Musculoskeletal: No Tenderness to Palpation of Joints or Extremities Neurological: Cranial nerves II-XII grossly intact Psych/Mental Status: Normal Affect, Appropriate, Alert and oriented to time, place, person, mood and affect Vital Signs Temp Pulse Resp BP Pulse Ox 97.5 F L 91 16 116/70 95 05/14/19 12:33 05/14/19 12:33 05/14/19 12:33 05/14/19 12:33 05/14/19 12:33 Oxygen Flow Rate (L/min) 1 Oxygen Delivery Method Room Air Weight: 255 lb 4.725 oz Body Mass Index (BMI) 50.5 Intake and Output for Last 24 Hours 05/12/19 05/13/19 05/14/19 23:59 23:59 23:59 Intake Total 921.7 / 921.7 1058.3 / 1258.3 550 / 550 Output Total 3075 / 3075 2100 / 2100 500 / 500 Balance -2153.3 / -2153.3 -1041.7 / -841.7 50 / 50 Laboratory Tests Past 24 Hrs 05/14/19 05:15 Sodium 137 Potassium 3.7 Chloride 97 L Carbon Dioxide 35.0 H Anion Gap 5 BUN 47 H Creatinine 2.13 H Estim Creat Clear Calc 19.44 Est GFR (MDRD) Af Amer 29 L Est GFR (MDRD) Non-Af 24 L BUN/Creatinine Ratio 22.1 H Glucose 163 H Calcium 9.2 POC Glucose 05/14/19 05/14/19 05/13/19 11:54 06:26 21:37 POC Glucose 166 H 155 H 235 H 05/13/19 16:09 POC Glucose 232 H Discharge Diet: Low fat/ Low Cholesterol, 1800 Calorie Control Diet, 2000 mg Sodium Diet Discharge Activity: Return to Normal Activity Home Medications: Medications to take at Discharge Aspirin [Aspir 81] 81 mg PO DAILY 05/07/19 Glimepiride [Amaryl] 4 mg PO BID 05/07/19 Sertraline HCl 100 mg PO DAILY 05/07/19 Sitagliptin Phosphate [Januvia] 25 mg PO DAILY 05/07/19 Albuterol Aerosols [Ventolin Aerosols] 2.5 mg INHALATION Q6H PRN PRN #120 vial.neb. 05/14/19 Bumetanide [Bumex] 1 mg PO TID #180 tab 05/14/19 Insulin Glargine [Lantus SoloStar Pen] 10 units SUBCUT BID #1 pen 05/14/19 Midodrine HCl [Proamatine] 5 mg PO TID #90 tab 05/14/19 Potassium Chloride [K-Dur] 20 meq PO DAILYCM #30 tab 05/14/19 Following Prescrptions Were Given to Patient: Bumetanide [Bumex] 1 mg PO TID #180 tab Transmission Status: Received by [facility]30 Potassium Chloride [K-Dur] 20 meq PO DAILYCM #30 tab Transmission Status: Received by [facility] [place] [facility]30 Insulin Glargine [Lantus SoloStar Pen] 10 units SUBCUT BID #1 pen Transmission Status: Received by [facility] [place] [facility] Midodrine HCl [Proamatine] 5 mg PO TID #90 tab Transmission Status: Received by [facility] [place] [facility] Albuterol Aerosols [Ventolin Aerosols] 2.5 mg INHALATION Q6H PRN PRN #120 vial.neb. PRN Reason: SOB/Wheezing Transmission Status: Received by [facility] [place] [facility] Primary Care Physician: Care Physician,No Primary [Primary Care Provider] - Please Follow Up With: Benita Hussein MD When: 1 day Please Follow Up With: Morena Nash MD When: 2 weeks Disposition: Home Minutes spent on discharge:: 35 Patient Condition:: Stable Medical Necessity - Tobacco Use Smoking Status: Never smoker Tobacco Use: Non-smoker Meaningful Use Info Meaningful Use Diagnoses (Choose all that apply): CHF - CHF FORTINO/ARB ordered at discharge?: No Reason FORTINO/ARB not ordered?: Worsening renal disease Documented LVEF (%): 20 <Timo Mendoza - Last Filed: 05/14/19 17:02> Hospital Course and Treatment Summary of Care Provided: The patient is a 68 year old F [] This patient was seen in conjunction with BHARTI Petersen. I have independently interviewed and examined the patient and reviewed pertinent history, examination findings, laboratory and plan of management. I have reviewed the note and agree with the documented findings with the few additional points. In brief, patient is a 68-year-old female with history of chronic systolic heart failure, EF 20% status post AICD placement was admitted for progressive worsening of shortness of breath. Patient also has orthopnea and PND. Patient has other comorbidities including diabetes mellitus type 2, super obesity, anxiety/depression. Chest x-ray shows increased pulmonary vascular congestion. Echo was done reported as EF 20% with severe cysts multiple systolic dysfunction. Left atrium is enlarged. Patient was started on midodrine by waterproof bag sewer. Bumex drip discontinued. Patient had about 20 pounds weight loss on diuresis. Patient had diuresis of 3 L on 05/12 and 2 L on 05/13.Patient creatinine increased from 1.942 2.13. BUN from 44-47. Plan is to hold diuretic for today and resume on lower dose 1 mg 3 times daily from 05/15/2019. Hightower catheter was discontinued and patient is spontaneously since yesterday. Patient also has wheezing probably from obstructive sleep apnea is more upper airway origin. Resolved on bronchodilator. Discharge medication reconciliation done. Discharge follow-up instructions completed. Discharge process discussed with the patient and all questions were answered to patient's satisfaction. Scripts are given for Bumex, potassium chloride, Lantus, midodrine and albuterol aerosol. Total time spent, exact 35 minutes on discharge meds reconciliation, examination, review of imaging and blood test and discussion with the patient on follow-up instructions. Palliative care meeting to be set up by PCP as desired by the patient. Subjective: Seen and examined. Patient is diuresed well. Had good urine output over the weekends. Patient creatinine increased from 1.942 2.13. BUN from 44-47. Plan is to hold diuretic for today and resume on lower dose 1 mg 3 times daily from 05/15/2019. - Physical Exam General: Alert, Oriented x3, Cooperative HEENT: Atraumatic, PERRLA, EOMI, Normocephalic Neck: Supple, No JVD, Negative Carotid Bruits Lungs: Normal air movement, Diminished Cardiovascular: Regular rate, Regular Rhythm, Normal S1, Normal S2, No murmurs Abdomen: Bowel Sounds Present, Soft, Non Tender, Non-Distended, Obese Extremities: Capillary Refill Less than 3 Seconds, Edema - Edema as subsided. Skin: No rashes, No breakdown Musculoskeletal: No Tenderness to Palpation of Joints or Extremities, Arthritic Changes, Muscle Wasting Neurological: Cranial nerves II-XII grossly intact, Deep Tendon Reflexes 2+/4 and Symmetrical, Neuro grossly intact Psych/Mental Status: Normal Affect, Appropriate Vital Signs Temp Pulse Resp BP Pulse Ox 97.5 F L 91 16 116/70 95 05/14/19 12:33 05/14/19 12:33 05/14/19 12:33 05/14/19 12:33 05/14/19 12:33 Oxygen Flow Rate (L/min) 1 Oxygen Delivery Method Room Air Weight: 255 lb 4.725 oz Body Mass Index (BMI) 50.5 Intake and Output for Last 24 Hours 05/12/19 05/13/19 05/14/19 23:59 23:59 23:59 Intake Total 921.7 / 921.7 1058.3 / 1258.3 550 / 550 Output Total 3075 / 3075 2099 / 2099 500 / 500 Balance -2153.3 / -2153.3 -1041.7 / -841.7 50 / 50 Laboratory Tests Past 24 Hrs 05/14/19 05:15 Sodium 137 Potassium 3.7 Chloride 97 L Carbon Dioxide 35.0 H Anion Gap 5 BUN 47 H Creatinine 2.13 H Estim Creat Clear Calc 19.44 Est GFR (MDRD) Af Amer 29 L Est GFR (MDRD) Non-Af 24 L BUN/Creatinine Ratio 22.1 H Glucose 163 H Calcium 9.2 POC Glucose 05/14/19 05/14/19 05/13/19 11:54 06:26 21:37 POC Glucose 166 H 155 H 235 H Code Visit Inpatient E&M: 60368 Disch Hosp
--- NOTE | 2019-05-15 10:40 | CASEMGMT ---
JERO LOUIS NOTE: Message received that pt wanted to speak with CM. Call placed to patient. Pt states I got the problem taken care of. I just feel so tired today after being in the hospital, that I changed my doctor's appt to the 12th. Pt reminded of the importance of the appt with [facility] [facility] today so that HHC can be arranged and so she can have a nurse and therapists come to her home to assess her and help her recover quicker. After discussion with pt, pt stated she is agreeable to keeping the appt today @ 4 PM with [facility] and asked this JERO LOUIS to call the doctor's office and let them know she will come in for the appt today after-all. Call placed to Marge Latif RN CM @ Dr Hussein's office. She was made aware of all of the above and states she is now agreeable to coming in for the 4 PM appt today after-all. Marge states she will check on if the appt is still available and will follow up with patient. Josh PICKARD RN, CM
== END 2019-05-14 13:27 | disposition home or self-care (01) | DRG 291 ==
LOC: ED 15:40 → PCU 17:54 → ED 18:07 → PCU 05-08 01:09
PROVIDERS: Internal Medicine; Nurse Practitioner Family; Physician Assistant; Emergency Provider Emergency Medicine; Visit Provider Internal Medicine
DX: I13.0 Hypertensive heart and chronic kidney disease with heart failure and stage 1 through stage 4 chronic kidney disease, or unspecified chronic kidney disease (principal); I50.23 Acute on chronic systolic (congestive) heart failure; Z68.43 Body mass index [BMI] 50.0-59.9, adult; N17.9 Acute kidney failure, unspecified; E66.01 Morbid (severe) obesity due to excess calories; I42.9 Cardiomyopathy, unspecified; R09.02 Hypoxemia; N18.3 Chronic kidney disease, stage 3 (moderate); E11.22 Type 2 diabetes mellitus with diabetic chronic kidney disease; I25.10 Atherosclerotic heart disease of native coronary artery without angina pectoris; Z95.810 Presence of automatic (implantable) cardiac defibrillator; F32.9 Major depressive disorder, single episode, unspecified; Z79.4 Long term (current) use of insulin
CPT/HCPCS: 36415; 71046; 80048; 82962; 83036; 83735; 83880; 84443; 84484; 85025; 85027; 87493; 93005; 93306; 94640; 97110; 97162; 97166; 97530; 97802; 99251; 99285; Q9957; A4216; G0463; J1940

== ENCOUNTER 2019-07-22 04:41 | Inpatient (IN) | payer MEDICARE, SELFPAY ==
[2019-07-22] VITALS (12 sets, daily range): BP systolic 109–162; BP diastolic 60–133; PULSE 84–118; RESP 18–21; TEMP 36.4–37; O2SAT 93–98; BMI 45.7; BMI 49.2; BMI 48.7; BMI 48.8
--- NOTE | 2019-07-22 04:47 | EKG12_ITS ---
Test Reason : SOB Blood Pressure : / mmHG Vent. Rate : 113 BPM Atrial Rate : 113 BPM P-R Int : 164 ms QRS Dur : 082 ms QT Int : 346 ms P-R-T Axes : 043 -12 050 degrees QTc Int : 474 ms Sinus tachycardia Inferior infarct , age undetermined Abnormal ECG Confirmed by SALVADOR BENNETT ([id number]), social media editor SERGO HERNANDEZ ([id number]) on 07/30/2019 2:57:34 PM Referred By: SARA Confirmed By:SALVADOR BENNETT
--- NOTE | 2019-07-22 04:48 | ED.VISSUMM ---
- ER Visit Summary Date of Service: 07/22/19 Chief Complaint: Shortness of breath History of Present Illness: The patient is a 68 F who complains of shortness of breath. Is been ongoing for 2 days. She states that her shortness of breath is worse with exertion. She has had a cough is not productive the sputum. She denies any fevers. Denies chest pain. She has a history of CHF but does not wear any home oxygen. She has had no leg swelling. She has been compliant with her home prescribed medications. She took nothing for her cough or dyspnea other than her home medications. She has no DVT or PE risk factors. According to nursing notes, the patient is supposed to be on oxygen at home but ran out of it. Physical Examination: Vital signs are reviewed. HEENT exam unremarkable. Heart is tachycardic and regular rhythm without murmurs. Lungs have wheezing in the upper lung bear bilaterally. Abdomen is soft nontender. Extremities have no edema. Her neurologic exam is normal. Test Results: EKG was sinus rhythm with a rate of 115. Nonspecific ST-T wave changes noted. Creatinine 1.35. Glucose 396. Troponin normal. BNP 538. Chest x-ray has increased interstitial congestion consistent with CHF. Urinalysis has leukocytes with nitrite. Emergency Department Course and Treatment: Patient was given albuterol and then Lasix due to the CHF. I will put her on Keflex for the UTI. Due to her dyspnea and CHF feel she needs admitted to the hospital. Patient will be discussed with the hospitalist. Treatment Plan: [] Disposition: Admit Impression: CHF exacerbation, UTI This note was generated with Jdguanj[employer] dictation software. It may contain incorrect words, spelling, and punctuation that were not noted in review of the chart prior to signing ED Disposition - Plan for ED Patient: Referrals: Care Physician,No Primary [Primary Care Provider] -
[2019-07-22] MEDS: Albuterol 2.5 MG/3 ML VIAL.NEB. INHALATION ×2 (05:02)
--- NOTE | 2019-07-22 05:05 | RAD_ITS ---
HISTORY: SOB EXAMINATION/TECHNIQUE: XR Chest 1 View: Portable COMPARISON: 05/12/2019 FINDINGS: Worsening vascular congestion with interstitial edema greatest at the right lower lung zone. Right perihilar hazy edema. Cardiomegaly, unchanged. No definite pleural effusion. Left subclavian AICD pacemaker with electrode tip in the region of the right ventricle. Atherosclerotic thoracic aorta. No pneumothorax. RAD/Chest 1 View (Portable) IMPRESSION: 1. Worsening vascular congestion and interstitial edema. 2. Cardiomegaly, unchanged. AICD pacemaker. at 0543 Reported and signed by: Sergio Holden MD Electronically Signed: Sergio Holden, at 5:42 EDT Tel , Service support ,
[2019-07-22 05:09] LABS: Absolute Lymphocyte Count 0.79 X10^3/uL (0.83-4.51); Absolute Neutrophil Count 4.9 X10^3/uL (2.0-7.7); Basophil# 0.02 X10^3/uL; Basophil% 0.3 % (0-1); Eosinophil# 0.13 X10^3/uL; Hematocrit 43.8 % (37-47); Hemoglobin 13.6 g/dL (12.0-15.0); Lymphocyte # 0.79 X10^3/ul (4.0); Lymphocyte % 12.1 % (19-41); Mean Corp Hgb Conc 31.1 g/dL (32-36); Mean Corpuscular Hgb 27.2 pg (27.0-32.0); Mean Corpuscular Volume 87.6 fL (81-99); Mean Platelet Vol. 11.7 fl (6.2-12.0); Monocyte# 0.65 X10^3/uL; Monocyte% 9.9 % (0-10); NRBC Flagged by Analyzer 0 % (0-5); Neutrophil # 4.91 X10^3/uL (2.7-7.7); Neutrophil % 75.1 % (47-70); Platelet Count 164 K/mm3 (150-450); RBC Distribution Width CV 16.8 % (11.6-14.6); RBC Distribution Width SD 52.6 fl (35.1-43.9); White Blood Count 6.5 K/mm3 (4.4-11.0)
[2019-07-22 05:18] LABS: Prothrombin Time (Protime)PT. 12.9 SECONDS (11.7-14.9)
[2019-07-22 05:19] LABS: Partial Thromboplast Time 30.2 Seconds (24.1-36.2)
[2019-07-22 05:30] LABS: Anion Gap 6 (5-15); BUN 16 mg/dL (7-18); BUN/Creat Ratio 11.9 RATIO (10-20); Calcium,Total 8.8 mg/dL (8.5-10.1); Chloride 107 mmol/L (98-107); Creatinine, Serum 1.35 mg/dL (0.55-1.02); EST Glomerular Filtration Rate 41 mL/min (>60); Est Glom Filt Rate - Afr Amer 50 mL/min (>60); Estimated Creatinine Clearance 30.67 ml/min; Glucose 396 mg/dL (74-106); Potassium 4.5 mmol/L (3.5-5.1); Sodium Level 142 mmol/L (136-145)
[2019-07-22 05:31] LABS: Lactic Acid 1.2 mmol/L (0.4-2.0)
[2019-07-22 05:40] LABS: BNP,B-Type NATRIURETIC PEPTIDE 538.5 pg/mL (0-100)
[2019-07-22 05:42] LABS: Mucous, Urine 0 SEEN /hpf (<or=2+); Red Blood Cells-Urine 0 SEEN /hpf (0-5); Squamous Epithelial Cells - UA 0 SEEN /hpf (5-10)
[2019-07-22 05:44] LABS: Color, Urine Yellow (Yellow); Glucose, Dipstick 1000 mg/dl (Normal); Ketone-Dipstick Negative (Negative); Leukocyte Esterase-Dipstick 25 /ul (Negative); Nitrite-Dipstick Positive (Negative); Occult Blood-Urine 150 /ul (Negative); Protein-Dipstick 100 mg/dl (Negative); Urine Bilirubin Dipstick Negative (Negative); Urine Clarity Cloudy (Clear); Urine Urobilinogen Normal (Normal)
--- NOTE | 2019-07-22 06:00 | HP.PCM_ITS ---
Problem List (1) Heart failure Status: Acute Qualifiers: Heart failure type: systolic History of Present Illness Date of Admission: 07/22/19 Chief Complaint: shortness of breath The patient is a 68 year old F with a significant history of super morbid obesity; systolic heart failure with ICD; attention; and diabetes mellitus who presents emergency department with shortness of breath that started on the same day of presentation. Associated with her symptoms is audible wheezing. Patient reported that she is supposed to be on home oxygen but her oxygen equipment is defective so she is unable to use her home oxygen.. Also she reports that her nebulizer machine is not working. She has chronic two-pillow orthopnea. She denies paroxysmal nocturnal dyspnea. She denies any change in her weight. She has no edema. She reports that in the past she has not had any edema. Although she is prescribed bumetanide p.o. twice daily at home she takes it only once daily. She reports that she takes all her medication once daily even medications that has been prescribed more than once daily. She reports insomnia. Past Medical History Medical History: Medical History (Last Reviewed 07/22/19 @ 08:33 by Hugh Dial MD) Cardiac defibrillator in place Z95.810 DM2 (diabetes mellitus, type 2) E11.9 Allergies No Known Allergies Allergy (Verified 05/07/19 12:21) Home Medications: Ambulatory Orders Medication Instructions Recorded Aspirin [Aspir 81] 81 mg PO DAILY 05/07/19 Sertraline HCl 100 mg PO DAILY 05/07/19 Bumetanide [Bumex] 1 mg PO TID #180 tab 05/14/19 Insulin Glargine [Lantus SoloStar 10 units SUBCUT BID #1 pen 05/14/19 Pen] Midodrine HCl [Proamatine] 5 mg PO TID #90 tab 05/14/19 Potassium Chloride [K-Dur] 20 meq PO DAILYCM #30 tab 05/14/19 Nateglinide 1 tab PO TID 07/22/19 Surgical History: Surgical History (Last Updated 05/07/19 @ 17:53 by Shakeel Groves DO) Total knee replacement status Z96.659 Surgical History: - - ICD Placement Psychiatric History: No 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 Lives: Alone Smoking Status: Never smoker - *Family History Maternal History Items: Dementia, - Paternal History Items: Cancer Review of Systems Constitutional: Denies: Chills, Fever, Weight Change HEENT: Denies: Head Aches, Sinus Congestion, Sinus Drainage Cardiovascular: Denies: Chest Pain, Palpitations Respiratory: Reports: Cough, Wheezing. Denies: Shortness of breath at rest, Sputum production Gastrointestinal: Denies: Abdominal Pain, Nausea, Vomiting Genitourinary: Denies: Dysuria Musculoskeletal: Denies: Joint Pain, Joint Tenderness Skin: Denies: Rash, Wounds Neurological: Denies: Numbness, Tingling, Focal weakness Psychiatric: Denies: Anxiety, Depression, Homicidal Ideations, Suicidal Ideations Hematologic/ Lymphatic: Denies: Easy Bruising, Easy Bleeding VTE Information - Inpt Only VTE Present on Admission: No VTE Mechan Device Prophylaxis: None VTE Pharm Prophylaxis ordered?: Yes Patient Problems: Active and Suspected Problems (Last Reviewed 07/22/19 @ 08:16 by Hugh Dial MD) Heart failure (Acute) - Physical Exam General: Alert, Oriented x3, Cooperative HEENT: Atraumatic, PERRLA, EOMI, Normocephalic Neck: Supple, No JVD, Negative Carotid Bruits Lungs: Wheezes Cardiovascular: No murmurs, Tachycardic Abdomen: Bowel Sounds Present, Soft, Non Tender Extremities: No edema, Capillary Refill Less than 3 Seconds Skin: No rashes, No breakdown Musculoskeletal: No Tenderness to Palpation of Joints or Extremities Neurological: Cranial nerves II-XII grossly intact Psych/Mental Status: Normal Affect, Appropriate Vital Signs Temp Pulse Resp BP Pulse Ox 98.6 F 118 H 20 H 162/133 H 97 07/22/19 05:05 07/22/19 05:00 07/22/19 05:00 07/22/19 04:44 07/22/19 04:44 Oxygen Flow Rate (L/min) 2 Oxygen Delivery Method Nasal Cannula Weight: 122.2 kg Body Mass Index (BMI) 49.2 Laboratory Tests Past 24 Hrs 07/22/19 07/22/19 07/22/19 04:50 04:50 04:50 WBC 6.5 RBC 5.00 Hgb 13.6 Hct 43.8 MCV 87.6 MCH 27.2 MCHC 31.1 L RDW Std Deviation 52.6 H RDW Coeff of Rahel 16.8 H Plt Count 164 MPV 11.7 Immature Gran % (Auto) 0.600 Neut % (Auto) 75.1 H Lymph % (Auto) 12.1 L [place] % (Auto) 9.9 Eos % (Auto) 2.0 Baso % (Auto) 0.3 Absolute Neuts (auto) 4.9 Absolute Lymphs (auto) 0.79 L Nucleated RBC % 0 PT INR APTT Sodium 142 Potassium 4.5 Chloride 107 Carbon Dioxide 29.0 Anion Gap 6 BUN 16 Creatinine 1.35 H Estim Creat Clear Calc 30.67 Est GFR (MDRD) Af Amer 50 L Est GFR (MDRD) Non-Af 41 L BUN/Creatinine Ratio 11.9 Glucose 396 H Lactic Acid Calcium 8.8 Troponin I < 0.015 B-Natriuretic Peptide 538.5 H Urine Color Urine Clarity Urine pH Ur Specific [place] Urine Protein Urine Glucose (UA) Urine Ketones Urine Occult Blood Urine Nitrite Urine Bilirubin Urine Urobilinogen Ur Leukocyte Esterase Urine RBC Urine WBC Ur Squamous Epith Cells Urine Bacteria Urine Mucus 07/22/19 07/22/19 07/22/19 04:50 04:50 05:25 WBC RBC Hgb Hct MCV MCH MCHC RDW Std Deviation RDW Coeff of Rahel Plt Count MPV Immature Gran % (Auto) Neut % (Auto) Lymph % (Auto) [place] % (Auto) Eos % (Auto) Baso % (Auto) Absolute Neuts (auto) Absolute Lymphs (auto) Nucleated RBC % PT 12.9 INR 1.0 APTT 30.2 Sodium Potassium Chloride Carbon Dioxide Anion Gap BUN Creatinine Estim Creat Clear Calc Est GFR (MDRD) Af Amer Est GFR (MDRD) Non-Af BUN/Creatinine Ratio Glucose Lactic Acid 1.2 Calcium Troponin I B-Natriuretic Peptide Urine Color Yellow Urine Clarity Cloudy Urine pH 5.0 Ur Specific [place] 1.020 Urine Protein 100 H Urine Glucose (UA) 1000 H Urine Ketones Negative Urine Occult Blood 150 H Urine Nitrite Positive H Urine Bilirubin Negative Urine Urobilinogen Normal Ur Leukocyte Esterase 25 H Urine RBC Pending Urine WBC Pending Ur Squamous Epith Cells Pending Urine Bacteria Pending Urine Mucus Pending Assessment/Plan All Active Problems (Last Reviewed 07/22/19 @ 08:16 by Hugh Dial MD) CHF (congestive heart failure) (Acute) Heart failure (Acute) The patient is a 68 year old F with a significant history of systolic heart failure and with ICD; and diabetes mellitus who presents emergency department with shortness of breath that started on the same day of presentation consistent with probable acute exacerbation of systolic heart failure Probable acute systolic systolic heart failure Echocardiogram on 05/08/2019 showed estimated ejection fraction of 20%. Patient with severely segment test systolic dysfunction; left atria appeared enlarged; trivial mitral valve insufficiency; trivial tricuspid valve insufficiency. Mild focal aortic valve calcifications. Diastolic dysfunction was unable to be assessed. Placed on monitored bed on PCU Weight on admission to the floor; and then daily Strict I&O's CXR independently reviewed confirms bilateral pulmonary opacities EKG independently reviewed confirms Q waves in inferior leads unchanged from previous. Emergency department labs reviewed showed BNP of 538.5. Her BNP on 05/07/2019 was 366.4 Received Lasix 40 mg IV push in the emergency department. At home patient supposed to be on Bumex 1 mg p.o. 3 times daily. But she takes it once daily. Will order Bumex 1 mg IV 3 times daily for now. Continue home potassium supplementation. On presentation her potassium was 4.5. Trend BMP. Monitor electrolytes and renal function Trend blood pressure Titrate diurectics and heart failure/blood pressure medications with blood pressure. 2 g sodium restriction diet. Received albuterol inhalation emergency department. Home albuterol as needed continued. Probable acute cystitis Patient with abnormal urinalysis Urine culture is pending; follow Keflex was given the emergency department. We will continue patient on Keflex. Diabetes mellitus On presentation her blood glucose was not within goal. She reported that she takes Lantus 12 units once daily in the morning. On EMR Lantus is at 10 units twice daily. Will start patient on Lantus 16 units daily. Accu-Chek QA CHS with correction scale added. On home Nateglinide; continue CKD stage IV Stable DVT prophylaxis Subcutaneous Lovenox Code Visit Inpatient E&M: 48219 Init Hosp L3
[2019-07-22 06:02] LABS: Bacteria 3+ /hpf (None Seen); White Blood Cells 5-10 SEEN /hpf (0-5)
[2019-07-22] MEDS: Cephalexin 250 MG Capsule 500 MG PO (06:27)
[2019-07-22] MEDS: Furosemide 40 MG/4 ML Vial IV (06:28)
[2019-07-22] MEDS: Insulin Lispro 100 UNIT/ML INSULN.PEN SC ×4 (08:05→22:16)
[2019-07-22 09:01] LABS: Bedside Glucose 439 mg/dL (70-110)
[2019-07-22] MEDS: Aspirin E.C. 81 MG Tablet PO (10:15)
[2019-07-22] MEDS: Sertraline 100 MG Tablet PO (10:15)
[2019-07-22] MEDS: Enoxaparin 40 MG/0.4 ML Syringe SC (10:16)
--- NOTE | 2019-07-22 11:57 | PN_ITS ---
<Nicola Botello - Last Filed: 07/22/19 11:57> Patient Problems: Active and Suspected Problems (Last Reviewed 07/22/19 @ 08:33 by Hugh Dial MD) Heart failure (Acute) Subjective: Pt complains of severe wheezing and SOB. No LE edema no recent weight gain. States she normal is 269 lbs and now is 264 lbs. No cough. No LH/dizziness. No palp. Has AICD. She states her breathing is actually better when laying flat. She has noticed more PND lately, giving her great difficulty actually letting her sleep. - Physical Exam General: Alert, Oriented x3, Cooperative HEENT: Atraumatic, PERRLA, EOMI, Normocephalic Neck: Supple, No JVD, Negative Carotid Bruits Lungs: Normal air movement, Wheezes Cardiovascular: Regular rate, No murmurs Abdomen: Bowel Sounds Present, Soft, Non Tender, Obese Extremities: No edema, Capillary Refill Less than 3 Seconds Skin: No rashes, No breakdown Musculoskeletal: No Tenderness to Palpation of Joints or Extremities Neurological: Cranial nerves II-XII grossly intact Psych/Mental Status: Normal Affect, Appropriate, Alert and oriented to time, place, person, mood and affect Vital Signs Temp Pulse Resp BP Pulse Ox 97.6 F L 98 18 141/86 H 98 07/22/19 07:14 07/22/19 07:35 07/22/19 07:14 07/22/19 07:14 07/22/19 07:35 Oxygen Flow Rate (L/min) 3 Oxygen Delivery Method Nasal Cannula Weight: 266 lb 8.622 oz Body Mass Index (BMI) 48.7 Laboratory Tests Past 24 Hrs 07/22/19 07/22/19 07/22/19 04:50 04:50 04:50 WBC 6.5 RBC 5.00 Hgb 13.6 Hct 43.8 MCV 87.6 MCH 27.2 MCHC 31.1 L RDW Std Deviation 52.6 H RDW Coeff of Arhel 16.8 H Plt Count 164 MPV 11.7 Immature Gran % (Auto) 0.600 Neut % (Auto) 75.1 H Lymph % (Auto) 12.1 L [place] % (Auto) 9.9 Eos % (Auto) 2.0 Baso % (Auto) 0.3 Absolute Neuts (auto) 4.9 Absolute Lymphs (auto) 0.79 L Nucleated RBC % 0 PT INR APTT Sodium 142 Potassium 4.5 Chloride 107 Carbon Dioxide 29.0 Anion Gap 6 BUN 16 Creatinine 1.35 H Estim Creat Clear Calc 30.67 Est GFR (MDRD) Af Amer 50 L Est GFR (MDRD) Non-Af 41 L BUN/Creatinine Ratio 11.9 Glucose 396 H Lactic Acid Calcium 8.8 Troponin I < 0.015 B-Natriuretic Peptide 538.5 H Urine Color Urine Clarity Urine pH Ur Specific Posey Urine Protein Urine Glucose (UA) Urine Ketones Urine Occult Blood Urine Nitrite Urine Bilirubin Urine Urobilinogen Ur Leukocyte Esterase Urine RBC Urine WBC Ur Squamous Epith Cells Urine Bacteria Urine Mucus 07/22/19 07/22/19 07/22/19 04:50 04:50 05:25 WBC RBC Hgb Hct MCV MCH MCHC RDW Std Deviation RDW Coeff of Rahel Plt Count MPV Immature Gran % (Auto) Neut % (Auto) Lymph % (Auto) [place] % (Auto) Eos % (Auto) Baso % (Auto) Absolute Neuts (auto) Absolute Lymphs (auto) Nucleated RBC % PT 12.9 INR 1.0 APTT 30.2 Sodium Potassium Chloride Carbon Dioxide Anion Gap BUN Creatinine Estim Creat Clear Calc Est GFR (MDRD) Af Amer Est GFR (MDRD) Non-Af BUN/Creatinine Ratio Glucose Lactic Acid 1.2 Calcium Troponin I B-Natriuretic Peptide Urine Color Yellow Urine Clarity Cloudy Urine pH 5.0 Ur Specific Posey 1.020 Urine Protein 100 H Urine Glucose (UA) 1000 H Urine Ketones Negative Urine Occult Blood 150 H Urine Nitrite Positive H Urine Bilirubin Negative Urine Urobilinogen Normal Ur Leukocyte Esterase 25 H Urine RBC 0 SEEN Urine WBC 5-10 SEEN Ur Squamous Epith Cells 0 SEEN Urine Bacteria 3+ Urine Mucus 0 SEEN POC Glucose 07/22/19 08:01 POC Glucose 439 H Medical Necessity - Tobacco Use Smoking Status: Never smoker Assessment/Plan All Active Problems (Last Reviewed 07/22/19 @ 08:33 by Hugh Dial MD) CHF (congestive heart failure) (Acute) Heart failure (Acute) 1. Acute on chronic systolic CHF exacerbation - pt feels that she is improving since admission. she is wheezy when she is forcing her respirations, however when I distract her and listen while she is resting there is no wheezing. Her CXR is indicative on worsening CHF, and BNP is elevated. There is no recent weight gain. No LE edema. She also is giving an inconsistent hx, for example she initially reported increased orthopnea and no PND, and today states she has PND and no orthopnea at all (gets better lying flat). It is also concerning that she has not been using her home oxygen, and concerning that she takes all of her medicines at once including those that are supposed to be twice daily (bumex). -Wean O2 -I/O, daily weights -continue IV bumex -fluid/sodium restrict -last echo 05/07/2019 EF20%, defer repeat -AICD in place 2. CKDIV - stable 3. Acute cystitis - keflex. No fever/leukocytosis 4. DMt2 with morbid obesity continue long acting and SSI, continue starlix. 5. Depression - zoloft DVT ppx: lovenox DC planning: needs functional O2 equipment at home. Also PTOT evals. This patient was seen by Nicola Botello PA-C under the supervision of Dr. Noble. <Lexi Noble - Last Filed: 07/22/19 16:40> - Physical Exam Vital Signs Temp Pulse Resp BP Pulse Ox 97.5 F L 85 18 109/60 93 07/22/19 15:00 07/22/19 15:08 07/22/19 15:00 07/22/19 15:00 07/22/19 15:00 Oxygen Flow Rate (L/min) 3 Oxygen Delivery Method Room Air Weight: 120.9 kg Body Mass Index (BMI) 48.7 Intake and Output for Last 24 Hours 07/20/19 07/21/19 07/22/19 23:59 23:59 23:59 Intake Total 240 / 240 Output Total 2750 / 2750 Balance -2510 / -2510 Laboratory Tests Past 24 Hrs 07/22/19 07/22/19 07/22/19 04:50 04:50 04:50 WBC 6.5 RBC 5.00 Hgb 13.6 Hct 43.8 MCV 87.6 MCH 27.2 MCHC 31.1 L RDW Std Deviation 52.6 H RDW Coeff of Rahel 16.8 H Plt Count 164 MPV 11.7 Immature Gran % (Auto) 0.600 Neut % (Auto) 75.1 H Lymph % (Auto) 12.1 L [place] % (Auto) 9.9 Eos % (Auto) 2.0 Baso % (Auto) 0.3 Absolute Neuts (auto) 4.9 Absolute Lymphs (auto) 0.79 L Nucleated RBC % 0 PT INR APTT Sodium 142 Potassium 4.5 Chloride 107 Carbon Dioxide 29.0 Anion Gap 6 BUN 16 Creatinine 1.35 H Estim Creat Clear Calc 30.67 Est GFR (MDRD) Af Amer 50 L Est GFR (MDRD) Non-Af 41 L BUN/Creatinine Ratio 11.9 Glucose 396 H Lactic Acid Calcium 8.8 Troponin I < 0.015 B-Natriuretic Peptide 538.5 H Urine Color Urine Clarity Urine pH Ur Specific Posey Urine Protein Urine Glucose (UA) Urine Ketones Urine Occult Blood Urine Nitrite Urine Bilirubin Urine Urobilinogen Ur Leukocyte Esterase Urine RBC Urine WBC Ur Squamous Epith Cells Urine Bacteria Urine Mucus 07/22/19 07/22/19 07/22/19 04:50 04:50 05:25 WBC RBC Hgb Hct MCV MCH MCHC RDW Std Deviation RDW Coeff of Rahel Plt Count MPV Immature Gran % (Auto) Neut % (Auto) Lymph % (Auto) [place] % (Auto) Eos % (Auto) Baso % (Auto) Absolute Neuts (auto) Absolute Lymphs (auto) Nucleated RBC % PT 12.9 INR 1.0 APTT 30.2 Sodium Potassium Chloride Carbon Dioxide Anion Gap BUN Creatinine Estim Creat Clear Calc Est GFR (MDRD) Af Amer Est GFR (MDRD) Non-Af BUN/Creatinine Ratio Glucose Lactic Acid 1.2 Calcium Troponin I B-Natriuretic Peptide Urine Color Yellow Urine Clarity Cloudy Urine pH 5.0 Ur Specific Posey 1.020 Urine Protein 100 H Urine Glucose (UA) 1000 H Urine Ketones Negative Urine Occult Blood 150 H Urine Nitrite Positive H Urine Bilirubin Negative Urine Urobilinogen Normal Ur Leukocyte Esterase 25 H Urine RBC 0 SEEN Urine WBC 5-10 SEEN Ur Squamous Epith Cells 0 SEEN Urine Bacteria 3+ Urine Mucus 0 SEEN POC Glucose 07/22/19 07/22/19 12:00 08:01 POC Glucose 345 H 439 H Assessment/Plan This patient was seen in conjunction with BHARTI Berumen. I have independently interviewed and examined the patient and reviewed pertinent historical, laboratory, and other data. Please refer to BHARTI Berumen note for his patient's presentation, findings, and recommendations. I have reviewed and his note and concur with his documentation Admitted this morning with acute on chronic CHF. She feels improved. on 3 L of oxygen Physical Exam: Gen: Comfortable, not pale, not jaundiced CVS:HS I +II, regular, no murmurs RESP: Diminished at lung bases GI: BS present and normal, soft, nontender, no palpable organs EXT:No edema ASSESSMENT: 1. Acute on chronic systolic CHF 2. Acute cystitis 3. CKD stage IV 4. Type II DM 5. Depression Plan: Continue on IV Bumex Strict I's and O's, CHF protocol Code Visit Inpatient E&M: 52809 Subs Hosp L2
[2019-07-22] MEDS: Bumetanide 1 MG/4 ML Vial IV ×2 (12:03→22:16)
[2019-07-22] MEDS: Midodrine HCl 5 MG Tablet PO ×2 (12:03→16:26)
[2019-07-22 12:15] LABS: Bedside Glucose 345 mg/dL (70-110)
[2019-07-22] MEDS: Cephalexin 500 MG Capsule PO (16:26)
[2019-07-22 16:45] LABS: Bedside Glucose 292 mg/dL (70-110)
[2019-07-22] MEDS: Nystatin Powder 15gm Bottle 1 APPLIC TOPICAL (22:18)
[2019-07-22] MEDS: 0.9% NaCl Peripheral Flush Adult/Peds IV (22:19)
[2019-07-22 22:21] LABS: Bedside Glucose 304 mg/dL (70-110)
[2019-07-23] VITALS (13 sets, daily range): BP systolic 101–140; BP diastolic 55–86; PULSE 65–92; RESP 12–20; TEMP 36.4–36.7; O2SAT 90–100
[2019-07-23 05:34] LABS: Anion Gap 8 (5-15); BUN 17 mg/dL (7-18); Chloride 101 mmol/L (98-107); Creatinine, Serum 1.42 mg/dL (0.55-1.02); EST Glomerular Filtration Rate 39 mL/min (>60); Est Glom Filt Rate - Afr Amer 47 mL/min (>60); Estimated Creatinine Clearance 29.16 ml/min; Glucose 241 mg/dL (74-106); Potassium 4.2 mmol/L (3.5-5.1); Sodium Level 143 mmol/L (136-145)
[2019-07-23] MEDS: Insulin Lispro 100 UNIT/ML INSULN.PEN SC ×6 (06:41→22:07)
[2019-07-23] MEDS: Bumetanide 1 MG/4 ML Vial IV (06:41)
[2019-07-23] MEDS: Nystatin Powder 15gm Bottle 1 APPLIC TOPICAL ×3 (06:41→22:09)
[2019-07-23] MEDS: Midodrine HCl 5 MG Tablet PO ×3 (06:42→16:50)
[2019-07-23] MEDS: 0.9% NaCl Peripheral Flush Adult/Peds IV (06:46)
[2019-07-23 07:10] LABS: Bedside Glucose 236 mg/dL (70-110)
--- NOTE | 2019-07-23 07:45 | CPS ---
Pt SpO2 87% on room air. Pt refusing to wear oxygen at this time as she doesn't like the way it feels in her nose. Pt instructed on deep breathing. Nursing notified.
[2019-07-23] MEDS: Aspirin E.C. 81 MG Tablet PO (08:35)
[2019-07-23] MEDS: Enoxaparin 40 MG/0.4 ML Syringe SC (09:55)
[2019-07-23] MEDS: Cephalexin 500 MG Capsule PO ×2 (09:55→22:09)
[2019-07-23] MEDS: Sertraline 100 MG Tablet PO (09:55)
[2019-07-23 11:00] LABS: Bedside Glucose 306 mg/dL (70-110)
--- NOTE | 2019-07-23 11:01 | CASEMGMT ---
Patient known to DITEER from past admission. Patient is active with [facility] and her Warehouse Picker is Karen Riggs ([phone]). DIETER called [facility] and spoke with Jeannine on the coverage line. Patient has a medical alert button and she has been approved for 8 hours of aide services per week. However, they are looking for a provider to provide these services. Ness HERMAN MSW
--- NOTE | 2019-07-23 13:00 | CASEMGMT ---
RN HERIBERTO EXPERIMENTAL MECHANIC CM to room to meet with patient for initial transition planning/care coordination assessment. RN HERIBERTO introduced self and role at [facility]. Pt voices understanding and consents to assessment at this time. Pt resting in bed in no distress at this time. Pt is A/O at this time and answers all questions appropriately. Care providers, pharmacy, and demographics verified/updated at this time. PCP: No PCP established yet. has an initial appt w/Dr Hussein to get established this Tuesday07/25/19 @ 1500. Specialists: None Preferred Pharmacy: [facility] in [place] Insurance: [facility] Prescription Benefit: Yes Living Will/HPOA: does not have LW or HCPOA . was given paperwork/info last admission but states, I never got around to filling it out. Interested in talking with DIETER to complete paperwork this admission. Ness GARCIAS, notified and voices understanding. Consult order placed. LNOK: Sister, Margarita Araya. Living Arrangements: Lives alone in an apt. is independent w/ADL's such as bathing and dressing and does her own cooking. sits at her sink in a chair when washing dishes. is difficult to do house cleaning and laundry, but [facility], I have enough clean clothes for now. Has Waiver Program. CM is Karen Riggs. [facility] Karen has been trying to get aide services for her but staffing is not available at this time. [facility] her long-time friend of 40 yrs lives in her apt complex and is very helpful to her. [facility] her sister, Margarita, helps her with finances/bills. Pt was getting meals delivered to her home, but states she does not have room in her freezer for more and prefers her own cooking, so she cancelled the meal delivery orders. Transportation: Friend, Sreekanth, takes her grocery shopping and to her doctor appts. States either Sreekanth or Sreekanth's will take her home @ discharge. DME: has the following DME: tub bench/shower chair, lift chair, rails/grab bars, hand held shower, rollator, and medical alert button. has oxygen concentrator at home and a portable tank but does not know what DME company she got them from, stating, I've had those since I lived in [facility]. Pt states the portable tank is full but that she needs a compressor for the concentrator so it would work properly. Pt could not explain/elaborate on what she meant by this. Pt also states she has a nebulizer but states, It is not working. HHC/SNF: Hx of going to [facility] in [place]. Discussed discharge planning w/pt and options of SNF vs HHC. PT/OT evals pending as pt refused therapy 07/22. Pt wishes to return home and adamantly refuses wanting to go to a SNF, stating, I don't want to do that. No I don't want to. I want to go home. Agreeable to HHC and is aware that needs to be established with PCP before HHC can be arranged. Reinforced with pt the importance of going to her PCP's appt. Pt voices understanding. Discussed CCN and pt is agreeable to referral to CCN as well. Call placed to Dr Hussein's office and message left with Marge Latif for her to return call to TRAVEL ASSISTANT Christel LOUIS, to discuss appt and HHC. CM to follow for home oxygen needs and any further discharge planning/needs. May need Home O2 ambulatory testing done prior to d/c. Pt voices no further concerns/needs at this time. Advised pt to ask for CM if any further questions/concerns/needs arise. Voices understanding. PLAN: Home w/CCN referral. Pt states will follow up with PCP and would like HHC established once is established with PCP. TRAVEL ASSISTANT Christel LOUIS, made aware of all of the above. Josh PICKARD RN, CM
--- NOTE | 2019-07-23 13:02 | PCM.PROGNOTE ---
<Nicola Botello - Last Filed: 07/23/19 13:02> Patient Problems: Active and Suspected Problems (Last Reviewed 07/22/19 @ 08:33 by Hugh Dial MD) Heart failure (Acute) Subjective: SOB improved. She is off O2 now. She is no longer wheezing. No CP/pressure/palp. No fevers/chills. Some abdominal distention. No LE edema - she states she never gets LE edema when her CHF flares up. She has not been out of bed yet. She is unable to walk however is insistent that she will not consider SNF. She was advised to follow up with Dr. Ybarra after last admission. She never did. She is agreeable to seeing him here today. She says she has not seen a lay brother in years, since her AICD was placed. - Physical Exam General: Alert, Oriented x3, Cooperative HEENT: Atraumatic, PERRLA, EOMI, Normocephalic Neck: Supple, No JVD, Negative Carotid Bruits Lungs: Diminished Cardiovascular: Regular rate, No murmurs Abdomen: Bowel Sounds Present, Soft, Non Tender, Obese Extremities: No edema, Capillary Refill Less than 3 Seconds Skin: No rashes, No breakdown Musculoskeletal: No Tenderness to Palpation of Joints or Extremities Neurological: Cranial nerves II-XII grossly intact Psych/Mental Status: Normal Affect, Appropriate Vital Signs Temp Pulse Resp BP Pulse Ox 97.9 F 80 12 120/78 100 07/23/19 08:18 07/23/19 10:54 07/23/19 11:00 07/23/19 08:18 07/23/19 11:00 Oxygen Flow Rate (L/min) 3 Oxygen Delivery Method Room Air Weight: 262 lb 5.601 oz Body Mass Index (BMI) 48.7 Intake and Output for Last 24 Hours 07/21/19 07/22/19 07/23/19 23:59 23:59 23:59 Intake Total 240 / 240 550 / 550 Output Total 2750 / 2750 1825 / 1825 Balance -2510 / -2510 -1275 / -1275 Microbiology Past 72 Hours 07/22/19 05:25 Urine Culture - Preliminary Urine, Random GNR lactose peoplesoft hr developer Laboratory Tests Past 24 Hrs 07/23/19 05:05 Sodium 143 Potassium 4.2 Chloride 101 Carbon Dioxide 34.0 H Anion Gap 8 BUN 17 Creatinine 1.42 H Estim Creat Clear Calc 29.16 Est GFR (MDRD) Af Amer 47 L Est GFR (MDRD) Non-Af 39 L BUN/Creatinine Ratio 12.0 Glucose 241 H Calcium 9.0 POC Glucose 07/23/19 07/23/19 07/22/19 10:55 06:35 22:15 POC Glucose 306 H 236 H 304 H 07/22/19 16:24 POC Glucose 292 H Medical Necessity - Tobacco Use Smoking Status: Never smoker Assessment/Plan All Active Problems (Last Reviewed 07/22/19 @ 08:33 by Hugh Dial MD) CHF (congestive heart failure) (Acute) Heart failure (Acute) 1. Acute on chronic systolic CHF exacerbation - improved. No further wheezing. Off O2. Cr and CO2 increased - change IV to PO bumex. Reportedly the patient was found to have full pill bottles that did not have any taken, which were prescribed after her last admission, indicating that she was not actually taking her medications at home. -I/O, daily weights -continue IV bumex -fluid/sodium restrict -last echo 05/07/2019 EF20%, defer repeat -AICD in place -Cardiology consulted. 2. CKDIV - stable 3. Acute cystitis - keflex. No fever/leukocytosis. Complete 5 days of therapy. 4. DMt2 with morbid obesity continue long acting and SSI, continue starlix. Added TID lispro therapy. 5. Depression - zoloft 6. Chronic hypoxic resp failure - her home O2 is reportedly broken. She is stable off O2 currently. DVT ppx: lovenox DC planning: pt is not taking care of herself or treating herself appropriately at home. She is also severely debilitated. She is unwilling to consider SNF. She may be a good candidate for the community care network and / or for having her daily medications pre sorted. This patient was seen by Nicola Botello PA-C under the supervision of Dr. Mendoza <Timo Mendoza - Last Filed: 07/23/19 15:49> Subjective: Patient was seen and examined. Patient was admitted here in May 2019 for CHF exacerbation and was managed with Bumex drip at that time. Since then, patient did not had follow-up with lay brother after discharge. Patient shortness of breath has improved. No chest pain or pressure. Does not have lower extremity edema. - Physical Exam General: Alert, Oriented x3, Cooperative HEENT: Atraumatic, PERRLA, EOMI, Normocephalic Neck: Supple, No JVD, Negative Carotid Bruits Lungs: No rhonchi, No wheeze, No rales, Diminished - Air entry is diminished bilaterally. Cardiovascular: Regular rate, Regular Rhythm, Normal S1, Normal S2, No murmurs Abdomen: Bowel Sounds Present, Soft, Non Tender, Non-Distended, Obese Extremities: No edema, Capillary Refill Less than 3 Seconds Skin: No rashes, No breakdown Musculoskeletal: No Tenderness to Palpation of Joints or Extremities, Arthritic Changes, Muscle Wasting Neurological: Cranial nerves II-XII grossly intact, Deep Tendon Reflexes 2+/4 and Symmetrical, Neuro grossly intact Psych/Mental Status: Normal Affect, Appropriate Vital Signs Temp Pulse Resp BP Pulse Ox 97.7 F L 77 20 H 108/62 100 07/23/19 14:27 07/23/19 15:00 07/23/19 14:27 07/23/19 14:27 07/23/19 14:27 Oxygen Flow Rate (L/min) 3 Oxygen Delivery Method Room Air Weight: 262 lb 5.601 oz Body Mass Index (BMI) 48.7 Intake and Output for Last 24 Hours 07/21/19 07/22/19 07/23/19 23:59 23:59 23:59 Intake Total 240 / 240 1240 / 1240 Output Total 2750 / 2750 2125 / 2125 Balance -2510 / -2510 -885 / -885 Microbiology Past 72 Hours 07/22/19 05:25 Urine Culture - Preliminary Urine, Random GNR lactose peoplesoft hr developer Laboratory Tests Past 24 Hrs 07/23/19 05:05 Sodium 143 Potassium 4.2 Chloride 101 Carbon Dioxide 34.0 H Anion Gap 8 BUN 17 Creatinine 1.42 H Estim Creat Clear Calc 29.16 Est GFR (MDRD) Af Amer 47 L Est GFR (MDRD) Non-Af 39 L BUN/Creatinine Ratio 12.0 Glucose 241 H Calcium 9.0 POC Glucose 07/23/19 07/23/19 07/22/19 10:55 06:35 22:15 POC Glucose 306 H 236 H 304 H 07/22/19 16:24 POC Glucose 292 H Assessment/Plan This patient was seen in conjunction with Nicola HAY. I have independently interviewed and examined the patient and reviewed pertinent history, examination findings, laboratory and plan of management. I have reviewed the note and agree with the documented findings with the few additional points. In brief, patient is admitted for severe shortness of breath with history of chronic systolic heart failure, EF 20% on last echo April 2019 status post AICD. Patient on Bumex 1 mg 3 times daily, potassium supplement, baby aspirin. Will add low-dose metoprolol 12.5 mg bid with holding parameters. Patient also has CKD stage IV and is seen [facility] during previous hospital stay. Telephonic Case Manager has been consulted. We will consult manufacturing support engineer. Creatinine went up from 1.35-1.42. BUN normal. Patient's creatinine fluctuates between 1.3-1.9. Patient also has acute cystitis, gram-negative sandy lactose peoplesoft hr developer more than 100,000 colonies. On Keflex 500 mg twice daily. Disposition: Patient does not want to go home. She may also severely debilitated secondary to her morbid body habitus. I have discussed my assessment with Nicola HAY and orders have been reviewed. Code Visit Inpatient E&M: 65278 Subs Hosp L3
[2019-07-23] MEDS: Bumetanide 0.5 MG Tablet 1 MG PO ×2 (14:31→22:08)
[2019-07-23 16:21] LABS: Bedside Glucose 351 mg/dL (70-110)
--- NOTE | 2019-07-23 17:55 | CON.PCM_ITS ---
Reason for Consult Date of Consultation: 07/23/19 Reason for Consultation: Evaluation of cardiac condition History of Present Illness: The patient is a 68 year old F who recently moved to this area. She has apparently had a cardiac history and has undergone an ICD implantation. She however has not been following up with any lead mechanical engineer. She presented to the emergency room with shortness of breath which he says has been going on for the last 2 days or so. She had previously been admitted briefly to the hospital in April of this year and undergone an echocardiogram which demonstrated an ejection fraction of 20 to 25% with segmental wall motion abnormalities. She is denied a ny chest pain or paroxysmal nocturnal dyspnea. She was supposed to be using home oxygen but apparently ran out of it. During this hospitalization it was felt that she needed to be consulted by a lead mechanical engineer. She had previously been referred to but had not followed up. [] Past Medical History Allergies/Adverse Reactions: Allergies No Known Allergies Allergy (Verified 05/07/19 12:21) Home Medications: Ambulatory Orders Medication Instructions Recorded Aspirin [Aspir 81] 81 mg PO DAILY 05/07/19 Sertraline HCl 100 mg PO DAILY 05/07/19 Bumetanide [Bumex] 1 mg PO TID #180 tab 05/14/19 Insulin Glargine [Lantus SoloStar 10 units SUBCUT BID #1 pen 05/14/19 Pen] Midodrine HCl [Proamatine] 5 mg PO TID #90 tab 05/14/19 Potassium Chloride [K-Dur] 20 meq PO DAILYCM #30 tab 05/14/19 Nateglinide 1 tab PO TID 07/22/19 Surgical History: - - ICD Placement Psychiatric History: No 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 - *Family History Maternal History Items: Dementia, - Paternal History Items: Cancer Lives: Alone Smoking Status: Never smoker Alcohol: None Drugs: None Review of Systems - Review of Systems General: Denies: Fever, Night Sweats, Fatigue HEENT: Denies: Vision Change Cardiovascular: Reports: Shortness of Breath, Shortness of Breath at Rest, Peripheral Edema. Denies: Chest Discomfort, Orthopnea, PND, Palpitations, Lightheadedness, Dizziness, Near Syncope, Syncope Respiratory: Denies: Cough, Sputum Production, Hemoptysis Gastrointestinal: Denies: Hematemesis, Hematochezia, Melena Genitourinary: Denies: Dysuria, Hematuria Skin: Denies: Rash Neurological: Denies: Dizziness Psychiatric: Denies: Anxiety Endocrine: Denies: Heat Intolerance Objective: Vital Signs Temp Pulse Resp BP Pulse Ox 97.9 F 77 14 101/61 97 07/23/19 17:52 07/23/19 17:52 07/23/19 17:52 07/23/19 17:52 07/23/19 17:52 Oxygen Flow Rate (L/min) 3 Oxygen Delivery Method Room Air Weight: 262 lb 5.601 oz Body Mass Index (BMI) 48.7 Intake and Output for Last 24 Hours 07/21/19 07/22/19 07/23/19 23:59 23:59 23:59 Intake Total 240 / 240 1480 / 1480 Output Total 2750 / 2750 2950 / 2950 Balance -2510 / -2510 -1470 / -1470 07/23/19 05:05: Sodium 143, Potassium 4.2, Chloride 101, Carbon Dioxide 34.0 H, Anion Gap 8, BUN 17, Creatinine 1.42 H, Est GFR (MDRD) Af Amer 47 L, Est GFR (MDRD) Non-Af 39 L, BUN/Creatinine Ratio 12.0, Glucose 241 H, Calcium 9.0 Rhythm: EKG: ECHO: Stress Test: Cardiac Cath: PCI: CT Surgery: Holter monitor: EPS: PPM: CXR: Chest CT Scan: Assessment/Plan 1. Congestive heart failure-chronic systolic * He does have what appears to be chronic systolic congestive heart failure. My recommendation at this time would be for us to put her on a beta-michael with carvedilol 3.125 mg twice a day and titrate upwards as appropriate. * She would also need to continue the diuretic with the Bumex which can be reduced prior to discharge to 1 mg twice a day. * Depending on her renal function on FORTINO inhibitor may be added. * 2. Status post ICD implantation * She has an ICD implanted which has not been checked in at least a few months. My recommendation is for us to put her in the pacemaker clinic and she will be followed there. * 3. Probable coronary artery disease * She likely has coronary artery disease on the basis of the segmental wall motion abnormalities noted. We will try and optimize her medical therapy and depending on the response further recommendations will be made. * * She is on ProAmatine the etiology of which is not clear. It is not clear whether she had orthostatic hypotension and at this time I would suggest that we discontinue it and see what happens to her blood pressure. * * Thank you for allowing me to participate in the care of your patient. Please don't hesitate to call if any issues arise
[2019-07-23] MEDS: Carvedilol 3.125 MG TABLET PO (22:09)
[2019-07-23 22:21] LABS: Bedside Glucose 190 mg/dL (70-110)
[2019-07-24] VITALS (8 sets, daily range): BP systolic 101–125; BP diastolic 47–66; PULSE 83–90; RESP 16–18; TEMP 36.3–36.7; O2SAT 91–96
[2019-07-24] MEDS: Nystatin Powder 15gm Bottle 1 APPLIC TOPICAL (05:19)
[2019-07-24] MEDS: Bumetanide 0.5 MG Tablet 1 MG PO (05:19)
--- NOTE | 2019-07-24 06:54 | PN.CARD_ITS ---
Subjectve: Patient seen and evaluated Objective: Vital Signs Temp Pulse Resp BP Pulse Ox 97.6 F L 83 16 125/57 H 92 07/24/19 05:15 07/24/19 05:15 07/24/19 05:15 07/24/19 05:15 07/24/19 05:15 Oxygen Flow Rate (L/min) 3 Oxygen Delivery Method Room Air Weight: 259 lb 7.745 oz Body Mass Index (BMI) 48.7 Intake and Output for Last 24 Hours 07/22/19 07/23/19 07/24/19 23:59 23:59 23:59 Intake Total 240 / 240 1630 / 1630 50 / 50 Output Total 2750 / 2750 3350 / 3350 400 / 400 Balance -2510 / -2510 -1720 / -1720 -350 / -350 General: Awake, Alert, Oriented x 3 HEENT: PERRL, EOMI, Sclera Non Icteric Neck: Supple, Good ROM, No Lymph Node Enlargement Lungs: Clear to auscultation Cardiovascular: Regular Rhythm, Normal S1, Normal S2, No Murmurs, No Rubs, No Gallops Vascular: No Carotid Bruits, Normal Femoral Pulses, Normal Radial Pulses, Normal Dorsalis Pedal Pulse, Normal Posterior Tibial Pulses Abdomen: Bowel Sounds Present, Soft, Non Tender, No HSM, No Organomegaly Extremities: No Cyanosis, No Clubbing, No edema Musculoskeletal: No Erythema Skin: No Rashes Lymphatic: No Lymph Node Enlargement Neurological: No Focal Motor or Sensory Deficit Psych/Mental Status: Appropriate Rhythm: EKG: ECHO: Stress Test: Cardiac Cath: PCI: CT Surgery: Holter monitor: EPS: PPM: CXR: Chest CT Scan: Medical Necessity - Tobacco Use Smoking Status: Never smoker Assessment/Plan 1. Congestive heart failure-chronic systolic * He does have what appears to be chronic systolic congestive heart failure. My recommendation at this time would be for us to put her on a beta-michael with carvedilol 3.125 mg twice a day and titrate upwards as appropriate. * She would also need to continue the diuretic with the Bumex which can be reduced prior to discharge to Lasix 40 mg twice a day. * Depending on her renal function on FORTINO inhibitor may be added. * 2. Status post ICD implantation * She has an ICD implanted which has not been checked in at least a few months. My recommendation is for us to put her in the pacemaker clinic and she will be followed there. * 3. Probable coronary artery disease * She likely has coronary artery disease on the basis of the segmental wall motion abnormalities noted. We will try and optimize her medical therapy and depending on the response further recommendations will be made. * * She is on ProAmatine the etiology of which is not clear. It is not clear whether she had orthostatic hypotension and at this time I would suggest that we discontinue it and see what happens to her blood pressure. * patient can be discharged for outpatient follow up * Thank you for allowing me to participate in the care of your patient. Please don't hesitate to call if any issues arise
[2019-07-24 07:14] LABS: Anion Gap 9 (5-15); BUN 25 mg/dL (7-18); BUN/Creat Ratio 14.9 RATIO (10-20); Calcium,Total 9.2 mg/dL (8.5-10.1); Chloride 97 mmol/L (98-107); Creatinine, Serum 1.68 mg/dL (0.55-1.02); EST Glomerular Filtration Rate 32 mL/min (>60); Est Glom Filt Rate - Afr Amer 39 mL/min (>60); Estimated Creatinine Clearance 24.64 ml/min; Glucose 240 mg/dL (74-106); Potassium 4.5 mmol/L (3.5-5.1); Sodium Level 139 mmol/L (136-145)
[2019-07-24] MEDS: Insulin Lispro 100 UNIT/ML INSULN.PEN SC ×4 (08:09→13:19)
[2019-07-24] MEDS: Furosemide 40 MG Tablet PO (08:10)
[2019-07-24] MEDS: Carvedilol 3.125 MG TABLET PO (08:11)
[2019-07-24] MEDS: Cephalexin 500 MG Capsule PO (08:11)
[2019-07-24] MEDS: Aspirin E.C. 81 MG Tablet PO (08:12)
[2019-07-24] MEDS: Enoxaparin 40 MG/0.4 ML Syringe SC (08:13)
[2019-07-24] MEDS: Sertraline 100 MG Tablet PO (08:13)
[2019-07-24 08:21] LABS: Bedside Glucose 245 mg/dL (70-110)
--- NOTE | 2019-07-24 08:30 | CASEMGMT ---
Addendum entered by Christel Condon 07/24/19 13:58: Call to [facility] and they state they will contact pt to set up delivery time for the wheelchair. [facility] states no further questions/concerns/needs at this time. Chuy NOGUEIRA CM Addendum entered by Christel Condon 07/24/19 12:03: Per Gaurav FINK, pt to be discharged today. Per. Veronique NOGUEIRA, pt does not qualify for home oxygen at this time. Pt is interested in w/c at this time and after provided with in-network list, pt states would like [email or web address] at this time. Order for wheelchair to be faxed to [facility]. Pt declines SNF at this time but states she would still like HHC. This RN CM emphasized the importance of f/u with [facility] as PCP for continued care and then for HHC to be able to be set up, pt voices understanding. Pt disagrees that she has missed that many appt's with [facility] since May but pt also believes that today is 07/25/19 and that her appt was today. Pt is aware that 07/25/19 appt was cancelled and she states 'Good, I probably wouldn't have wanted to go to that tomorrow anyway.' Pt states that she has transportation to get to her appt on 08/01/19 at 1400 and pt is aware that this appt will be included in her d/c instructions, voices understanding. Pt also aware that referral was made to [facility] and voices understanding. Pt voices no further questions/concerns/needs at this time. Pt states that she does have a ride home as well and states no further concerns. This RN CM attempted to reach Marge, [facility] long term care administrator, at this time to update on pt but message left for her at this time. Chuy NOGUEIRA CM Original Note: This RN CM received call from Marge Latif, [facility] long term care administrator, and she is aware of pt admission and states that pt did have initial hospital f/u after last admission but that pt never f/u to establish with [facility] as primary care. Per Marge, pt has cancelled 6-8 appt's since May. Pt was scheduled to see them tomorrow, 07/25/19 at 1500, but Marge cancelled that appt at this time d/t pt being admitted to the hospital. Pt re-scheduled for 08/01/19 at 1400 and this was placed in pt f/u appt's at this time. Marge is aware that [facility] referred for pt as well and that pt still interested in HHC once established with PCP. Marge to be updated with any further discharge planning prior to pt discharge. [employer]asma NOGUEIRA CM
--- NOTE | 2019-07-24 11:39 | DCINST_ITS ---
- Discharge Diagnoses Current Active Problems: Current Active and Chronic Problems (Last Reviewed 07/22/19 @ 08:33 by Hugh Dial MD) Heart failure (Acute) You will use the following diet at home:: Cardiac - 2-3 grams sodium daily Your food should be the consistency of: Regular Your liquids should be the consistency of: Regular/Thin Discharge Activity: Return to Normal Activity Allergies/Adverse Reactions: Allergies No Known Allergies Allergy (Verified 05/07/19 12:21) Medications to take at Discharge Aspirin [Aspir 81] 81 mg PO DAILY 05/07/19 Sertraline HCl 100 mg PO DAILY 05/07/19 Potassium Chloride [K-Dur] 20 meq PO DAILYCM #30 tab 05/14/19 Nateglinide 1 tab PO TID 07/22/19 Carvedilol [Coreg (Beta Rose Marie)] 3.125 mg PO BID #60 tab 07/24/19 Cephalexin [Keflex] 500 mg PO Q12 #6 cap 07/24/19 Furosemide [Lasix] 40 mg PO BID@1000,1800 #60 tab 07/24/19 Insulin Glargine [Lantus SoloStar Pen] 16 units SC DAILY pen 07/24/19 Insulin Lispro [Humalog KwikPen] 5 unit SUBCUT TIDAC #1 insuln.pen 07/24/19 Nystatin Powder [Mycostatin Powder] 1 applic TOPICAL TID bottle 07/24/19 The following prescriptions were given: Carvedilol [Coreg (Beta Rose Marie)] 3.125 mg PO BID #60 tab Transmission Status: Pending to [facility] Insulin Lispro [Humalog KwikPen] 5 unit SUBCUT TIDAC #1 insuln.pen Transmission Status: Pending to [facility] Cephalexin [Keflex] 500 mg PO Q12 #6 cap Transmission Status: Pending to [facility] Furosemide [Lasix] 40 mg PO BID@1000,1800 #60 tab Transmission Status: Pending to [facility] Primary Care Physician: Care Physician,No Primary [Primary Care Provider] - Please follow up with your Primary Care Physician in: 1-2 weeks Test Results: Test results from this visit will be discussed in further detail at your follow- up appointment, if applicable. Please Follow Up With: Philipp Ybarra MD When: as directed Proposed Discharge Date: 07/24/19
[2019-07-24 11:45] LABS: Bedside Glucose 273 mg/dL (70-110)
--- NOTE | 2019-07-24 12:11 | CASEMGMT ---
DIETER called Pearl Riggs at [facility]. DIETER left her a voice mail letting her know that patient is being discharged. DIETER told her she agreed to home health, however patient has no PCP. DIETER told her RN CM did extensive work on getting patient a PCP appt., however patient has canceled appts at least 6-8 times. DIETER asked if they are able to set up visiting physicians for patient as she mentioned this last time. DIETER told her we did make a referral to [facility]. DIETER asked for a return call. Ness HERMAN APPLICATION PERFORMANCE ENGINEER
--- NOTE | 2019-07-24 13:35 | PCM.DC.SUM ---
<Nicola Botello - Last Filed: 07/24/19 13:49> Discharge Date and Diagnosis Date of Admission: 07/22/19 Date of Discharge: 07/24/19 - Primary Discharge Diagnosis Active and Suspected Problems (Last Reviewed 07/22/19 @ 08:33 by Hugh Dial MD) Acute on chronic systolic congestive heart failure Acute cystitis Chronic hypoxic respiratory failure Type 2 diabetes with morbid obesity CKD stage IV AICD in place Suspected CAD Hospital Course and Treatment Imaging Results: RAD/Chest 1 View (Portable) IMPRESSION: 1. Worsening vascular congestion and interstitial edema. 2. Cardiomegaly, unchanged. AICD pacemaker. Consultation: Cardiology-[facility] Operations: None Procedures: None Summary of Care Provided: Hospital Course: The patient is a 68 year old F with past medical history as above who presented to the emergency room with increased shortness of breath severe wheezing and PND. In the emergency room chest x-ray demonstrated congestive heart failure, she also had an elevated BNP. She had recently been admitted for CHF and discharged home after refusing long-term. Was noted that she was not taking any of her home medications and that she had filled her meds after last discharge and none of those medications had been taken from the bottle. She also did not follow-up with cardiology as directed after last admission. She has no PCP either. She has not seen a pulmonologist in many years since her AICD was put in place. The patient was admitted for acute on chronic systolic congestive heart failure. She had a recent echo on her last admission so repeat was deferred, she has an ejection fraction of 20%. She was placed on IV Bumex and diuresed well with this. Cardiology was consulted and recommended ongoing diuresis. Her creatinine and CO2 began to creep up so her diuretics were changed to oral. She was completely weaned off oxygen. She is supposed to be on home oxygen and she does not use this as she says her oxygen machines are broken. She did not require oxygen after we diuresed her. Due to her previous compliance issues we transitioned her to once daily torsemide for her diuresis. She will need close follow-up with her renal function and ideally should have a BMP within 1 week. She will need to follow-up with cardiology as directed. She needs to establish care with a PCP. The patient was very weak and has difficulty ambulating however she refuses to consider long-term. She is unable to get home health care as she does not have a PCP. Our goal is to have her establish care with a PCP quickly after discharge so that home health care services can be arranged for her. She should also follow-up with nephrology as directed. We also arranged for the community care network to check on her to assist at home and help with medication compliance. She was discharged home in stable condition. This patient was seen by Nicola Botello PA-C under the supervision of Doctor Mendoza. [] - Physical Exam General: Alert, Oriented x3, Cooperative HEENT: Atraumatic, PERRLA, EOMI, Normocephalic Neck: Supple, No JVD, Negative Carotid Bruits Lungs: Clear to auscultation, Diminished Cardiovascular: Regular rate, No murmurs Abdomen: Bowel Sounds Present, Soft, Non Tender Extremities: No edema, Capillary Refill Less than 3 Seconds Skin: No rashes, No breakdown Musculoskeletal: No Tenderness to Palpation of Joints or Extremities Neurological: Cranial nerves II-XII grossly intact Psych/Mental Status: Normal Affect, Appropriate, Alert and oriented to time, place, person, mood and affect Vital Signs Temp Pulse Resp BP Pulse Ox 97.5 F L 88 18 101/47 L 92 07/24/19 13:14 07/24/19 13:14 07/24/19 13:14 07/24/19 13:14 07/24/19 13:14 Oxygen Flow Rate (L/min) 3 Oxygen Delivery Method Room Air Weight: 259 lb 7.745 oz Body Mass Index (BMI) 48.7 Intake and Output for Last 24 Hours 07/22/19 07/23/19 07/24/19 23:59 23:59 23:59 Intake Total 240 / 240 1630 / 1630 170 / 170 Output Total 2750 / 2750 3350 / 3350 700 / 700 Balance -2510 / -2510 -1720 / -1720 -530 / -530 Microbiology Past 72 Hours 07/22/19 05:15 Blood Culture - Preliminary Blood Culture (Wb) - Left Hand No growth in 48 hours. 07/22/19 04:50 Blood Culture - Preliminary Blood Culture (Wb) - Anticubital Left No growth in 48 hours. 07/22/19 05:25 Urine Culture - Final Urine, Random Klebsiella pneumoniae sp pneum Laboratory Tests Past 24 Hrs 07/24/19 05:56 Sodium 139 Potassium 4.5 Chloride 97 L Carbon Dioxide 33.0 H Anion Gap 9 BUN 25 H Creatinine 1.68 H Estim Creat Clear Calc 24.64 Est GFR (MDRD) Af Amer 39 L Est GFR (MDRD) Non-Af 32 L BUN/Creatinine Ratio 14.9 Glucose 240 H Calcium 9.2 POC Glucose 07/24/19 07/24/19 07/23/19 11:42 08:04 22:06 POC Glucose 273 H 245 H 190 H 07/23/19 16:12 POC Glucose 351 H Discharge Diet: Low fat/ Low Cholesterol, 2000 mg Sodium Diet Discharge Activity: Return to Normal Activity Home Medications: Medications to take at Discharge Aspirin [Aspir 81] 81 mg PO DAILY 05/07/19 Sertraline HCl 100 mg PO DAILY 05/07/19 Potassium Chloride [K-Dur] 20 meq PO DAILYCM #30 tab 05/14/19 Nateglinide 1 tab PO TID 07/22/19 Carvedilol [Coreg (Beta Rose Marie)] 3.125 mg PO BID #60 tab 07/24/19 Cephalexin [Keflex] 500 mg PO Q12 #6 cap 07/24/19 Insulin Glargine [Lantus SoloStar Pen] 16 units SUBCUT DAILY pen 07/24/19 Insulin Lispro [Humalog KwikPen] 5 unit SUBCUT TIDAC #1 insuln.pen 07/24/19 Nystatin Powder [Mycostatin Powder] 1 applic TOPICAL TID bottle 07/24/19 Torsemide 40 mg PO DAILY #60 tab 07/24/19 Following Prescrptions Were Given to Patient: Carvedilol [Coreg (Beta Rose Marie)] 3.125 mg PO BID #60 tab Transmission Status: Received by [id number] Insulin Lispro [Humalog KwikPen] 5 unit SUBCUT TIDAC #1 insuln.pen Transmission Status: Received by [id number] Cephalexin [Keflex] 500 mg PO Q12 #6 cap Transmission Status: Received by [facility] Torsemide 40 mg PO DAILY #60 tab Transmission Status: Received by [id number] Primary Care Physician: Care Physician,No Primary [Primary Care Provider] - Please follow up with your Primary Care Physician in: 1-2 weeks Please Follow Up With: [facility] When: as directed Disposition: Home Minutes spent on discharge:: 35 Patient Condition:: Stable Medical Necessity - Tobacco Use Smoking Status: Never smoker Meaningful Use Info Meaningful Use Diagnoses (Choose all that apply): CHF - CHF FORTINO/ARB ordered at discharge?: No Reason FORTINO/ARB not ordered?: Worsening renal disease Documented LVEF (%): 20 <Timo Mendoza - Last Filed: 07/24/19 14:43> Hospital Course and Treatment Summary of Care Provided: This patient was seen in conjunction with Nicola HAY. I have independently interviewed and examined the patient and reviewed pertinent history, examination findings, laboratory and plan of management. I have reviewed the note and agree with the documented findings with the few additional points. In brief, patient is admitted for severe shortness of breath with history of chronic systolic heart failure, EF 20% on last echo April 2019 status post AICD. Patient on Bumex 1 mg 3 times daily, potassium supplement, baby aspirin. Patient was seen by pulmonologist. The patient was started on Coreg 3.125 mg twice daily. Will need further pacemaker interrogation in cardiology clinic. Patient also has CKD stage IV and is seen [place] [facility] during previous hospital stay. C [employer] Threading Machine Feeder was consulted. The patient was treated with Bumex 1 mg 3 times daily which was switched to torsemide 40 mg daily for better compliance purposes on piercing mill operator recommendation. Patient also advised to follow-up BMP on July 30, 2019. Patient has increasing creatinine from 1.35-1.68 thought to be secondary to diuretic response. BUN went up from 16-25. Patient's creatinine fluctuates between 1.3-1.9. Patient is on midodrine secondary to orthostatic hypotension, started by piercing mill operator during last hospital stay in last week of May 2019. At that time patient was not able to be diuresed secondary to hypotension despite third volume spacing and interstitial edema. Midodrine discontinued. Patient also has acute cystitis, Klebsiella pneumoniae more than 100,000 colonies. On Keflex 500 mg twice daily. Patient does not want to go SNF. She may also severely debilitated secondary to her morbid body habitus. Discharge medication reconciliation done. Discharge follow-up instructions completed. Discharge process discussed with the patient and all questions were answered to patient's satisfaction.. Total time spent, exact 35 minutes on discharge meds reconciliation, examination, review of imaging and blood test and discussion with the patient on follow-up instructions. I have discussed my assessment with Nicola HAY and orders have been reviewed. Subjective: The patient is not short of breath. Blood pressure is controlled varies between 100 systolic to 125. Kidney function shows increase in the creatinine from 1.35-1.68 but patient does not want to stay further in order creatinine to level off. Objective: HEENT: Atraumatic, PERRLA, EOMI, Normocephalic Neck: Supple, No JVD, Negative Carotid Bruits Lungs: No rhonchi, No wheeze, No rales, Air entry is diminished bilaterally. Cardiovascular: Regular rate, Regular Rhythm, Normal S1, Normal S2, No murmurs Abdomen: Bowel Sounds Present, Soft, Non Tender, Non-Distended, Obese Extremities: No edema, Capillary Refill Less than 3 Seconds Skin: No rashes, No breakdown Musculoskeletal: No Tenderness to Palpation of Joints or Extremities, Arthritic Changes, Muscle Wasting Neurological: Cranial nerves II-XII grossly intact, Deep Tendon Reflexes 2+/4 and Symmetrical, Neuro grossly intact Psych/Mental Status: Normal Affect, Appropriate - Physical Exam Vital Signs Temp Pulse Resp BP Pulse Ox 97.5 F L 88 18 101/47 L 92 07/24/19 13:14 07/24/19 13:14 07/24/19 13:14 07/24/19 13:14 07/24/19 13:14 Oxygen Flow Rate (L/min) 3 Oxygen Delivery Method Room Air Weight: 259 lb 7.745 oz Body Mass Index (BMI) 48.7 Intake and Output for Last 24 Hours 07/22/19 07/23/19 07/24/19 23:59 23:59 23:59 Intake Total 240 / 240 1630 / 1630 170 / 170 Output Total 2750 / 2750 3350 / 3350 700 / 700 Balance -2510 / -2510 -1720 / -1720 -530 / -530 Microbiology Past 72 Hours 07/22/19 05:15 Blood Culture - Preliminary Blood Culture (Wb) - Left Hand No growth in 48 hours. 07/22/19 04:50 Blood Culture - Preliminary Blood Culture (Wb) - Anticubital Left No growth in 48 hours. 07/22/19 05:25 Urine Culture - Final Urine, Random Klebsiella pneumoniae sp pneum Laboratory Tests Past 24 Hrs 07/24/19 05:56 Sodium 139 Potassium 4.5 Chloride 97 L Carbon Dioxide 33.0 H Anion Gap 9 BUN 25 H Creatinine 1.68 H Estim Creat Clear Calc 24.64 Est GFR (MDRD) Af Amer 39 L Est GFR (MDRD) Non-Af 32 L BUN/Creatinine Ratio 14.9 Glucose 240 H Calcium 9.2 POC Glucose 07/24/19 07/24/19 07/23/19 11:42 08:04 22:06 POC Glucose 273 H 245 H 190 H 07/23/19 16:12 POC Glucose 351 H Code Visit Inpatient E&M: 29428 Disch Hosp
--- NOTE | 2019-07-24 13:44 | CON.PCM_ITS ---
Problem List (1) ALICIA (acute kidney injury) Status: Acute Consultation - Renal PCP/ Referring MD: Requesting physician: [] Primary care physician: No Primary Care Phys - History of Present Illness History of Present Illness: The patient is a 68 year old F past medical history of systolic heart failure with last echocardiogram showing 20% ejection fraction , hypertension , diabetes and chronic kidney disease stage III . Patient presented to [place] emergency room with shortness of breath for 1 day , chest x-ray shows pulmonary edema . Patient was admitted for CHF . Patient also was found to have UTI and she has been treated with Keflex Patient has not been taking her diuretics the way she was prescribed to take . She only takes Bumex once daily instead of 3 times daily . Patient treated with Lasix IV here in the hospital . Breathing improved . Creatinine has been increased slowly , patient presented with a creatinine 1.35 and decreased to 1.45 mg/dL yesterday and to 1.68 mg today . The plan is to discharge the patient today . Denied NSAID use. No IV contrast exposure. No urinary obstructive symptoms Review of system : 12 system review is negative [] - Allergies Allergies: Allergies No Known Allergies Allergy (Verified 05/07/19 12:21) - Current Medications Current Medications: Current Medications Acetaminophen (Tylenol) 650 mg PO Q6H PRN PRN PRN Reason: Mild pain 1-3/Temp > 100.7 F Albuterol Sulfate (Ventolin Aerosols) 2.5 mg INHALATION Q2H PRN PRN PRN Reason: SOB/Wheezing Aspirin (Ecotrin) 81 mg PO DAILYCM [facility] Last Admin: 07/24/19 08:12 Dose: 81 mg Documented by: Carvedilol (Coreg) 3.125 mg PO BID [facility] Last Admin: 07/24/19 08:11 Dose: 3.125 mg Documented by: Cephalexin (Keflex) 500 mg PO Q12 [facility] Last Admin: 07/24/19 08:11 Dose: 500 mg Documented by: Dextrose (D50w Syringe) 0 gm IV X1 PRN; Protocol PRN Reason: Hypoglycemia Enoxaparin Sodium (Lovenox) 40 mg SC DAILY@1000 [facility] Last Admin: 07/24/19 08:13 Dose: 40 mg Documented by: Furosemide (Lasix) 40 mg PO BID@1000,1800 [facility] Last Admin: 07/24/19 08:10 Dose: 40 mg Documented by: Glucagon () 1 mg IM .X1 PRN PRN Reason: Hypoglycemia Insulin Glargine (Lantus (Bk)) 16 units SC DAILY [facility] Last Admin: 07/24/19 08:11 Dose: 16 units Documented by: Insulin Human Lispro (Humalog Kwikpen (Bkc)) 0 unit SC ACHS [facility]; Protocol Last Admin: 07/24/19 13:18 Dose: 3 units Documented by: Insulin Human Lispro (Humalog Kwikpen (Bk)) 5 unit SC TIDAC [facility] Last Admin: 07/24/19 13:19 Dose: 5 units Documented by: Nateglinide (Starlix) 60 mg PO TIDAC [facility] Last Admin: 07/24/19 13:19 Dose: 60 mg Documented by: Nystatin (Mycostatin Powder) 1 applic TOPICAL TID [facility]; Protocol Last Admin: 07/24/19 05:19 Dose: 1 applicatio Documented by: Ondansetron HCl (Zofran) 4 mg IV Q8H PRN PRN PRN Reason: NAUSEA/VOMITING Potassium Chloride (K-Dur) 20 meq PO DAILYCM [facility] Last Admin: 07/24/19 08:12 Dose: 20 meq Documented by: Sertraline HCl (Zoloft) 100 mg PO DAILY [facility] Last Admin: 07/24/19 08:13 Dose: 100 mg Documented by: Sodium Chloride () 10 - 40 ml IV UD PRN PRN Reason: SALINE FLUSH Last Admin: 07/23/19 06:46 Dose: 10 ml Documented by: - Past Surgical History Surgical History: - - ICD Placement - Social History Smoking Status: Never smoker Alcohol: None Drugs: None - Family History Maternal History Items: Dementia, - Paternal History Items: Cancer Patient Problems: Active and Suspected Problems (Last Reviewed 07/22/19 @ 08:33 by Hugh Dial MD) Heart failure (Acute) ALICIA (acute kidney injury) (Acute) - Physical Exam General: Alert, Oriented x3 HEENT: Atraumatic Oral: Moist Mucosa Neck: Supple, No JVD Lungs: Clear to auscultation, Normal air movement, No rhonchi, No wheeze Cardiovascular: Regular rate, Regular Rhythm, Normal S1, Normal S2 Abdomen: Bowel Sounds Present, Soft, Non Tender, Non-Distended Extremities: No clubbing, No cyanosis, No edema Skin: No rashes Musculoskeletal: No Tenderness to Palpation of Joints or Extremities Lymphatic: No Cervical, Supraclavicular, or Inguinal Adenopathy Neurological: Cranial nerves II-XII grossly intact, Neuro grossly intact Psych/Mental Status: Appropriate Vital Signs Temp Pulse Resp BP Pulse Ox 97.5 F L 88 18 101/47 L 92 07/24/19 13:14 07/24/19 13:14 07/24/19 13:14 07/24/19 13:14 07/24/19 13:14 Oxygen Flow Rate (L/min) 3 Oxygen Delivery Method Room Air Weight: 117.7 kg Body Mass Index (BMI) 48.7 Intake and Output for Last 24 Hours 07/22/19 07/23/19 07/24/19 23:59 23:59 23:59 Intake Total 240 / 240 1630 / 1630 170 / 170 Output Total 2750 / 2750 3350 / 3350 700 / 700 Balance -2510 / -2510 -1720 / -1720 -530 / -530 Microbiology Past 72 Hours 07/22/19 05:15 Blood Culture - Preliminary Blood Culture (Wb) - Left Hand No growth in 48 hours. 07/22/19 04:50 Blood Culture - Preliminary Blood Culture (Wb) - Anticubital Left No growth in 48 hours. 07/22/19 05:25 Urine Culture - Final Urine, Random Klebsiella pneumoniae sp pneum Laboratory Tests Past 24 Hrs 07/24/19 05:56 Sodium 139 Potassium 4.5 Chloride 97 L Carbon Dioxide 33.0 H Anion Gap 9 BUN 25 H Creatinine 1.68 H Estim Creat Clear Calc 24.64 Est GFR (MDRD) Af Amer 39 L Est GFR (MDRD) Non-Af 32 L BUN/Creatinine Ratio 14.9 Glucose 240 H Calcium 9.2 POC Glucose 07/24/19 07/24/19 07/23/19 11:42 08:04 22:06 POC Glucose 273 H 245 H 190 H 07/23/19 16:12 POC Glucose 351 H Assessment/Plan All Active Problems (Last Reviewed 07/22/19 @ 08:33 by Hugh Dila MD) CHF (congestive heart failure) (Acute) Heart failure (Acute) ALICIA (acute kidney injury) (Acute) 1-acute kidney injury on chronic kidney disease. Baseline creatinine seems around 1.3 mg/dL. Chronic kidney disease from cardiorenal syndrome and diabetic nephropathy. creatinine increased while inpatient. Creatinine is up to 1.68 mg deciliter. 100 protein. ALICIA is most probably from prerenal related to cardiorenal syndrome. I am okay with discharging the patient torsemide 40 mg p.o. daily for now. Please check renal function panel next week. Please avoid FORTINO inhibitor or ARB at discharge. I will arrange for office follow-up in 2 to 3 weeks after discharge. 2-hypertension: Blood pressure is well controlled. Continue same dose of diuretics and beta-michael. 3-CHF: Improved with diuresis. Okay to discharge the patient with torsemide 40 mg p.o. daily. Please check renal function panel next week. I asked the patient to follow a low salt diet of 2000 mg sodium intake daily along with fluid restriction of 1200 cc daily. Patient is to follow with the CHF clinic. 4-diabetes: Glycemic control as per the primary service. Thank you for allowing me to participate in Mrs. Duvall's. Please call if any question at [phone] Plan of care was discussed with Dr. Mendoza and nurse practitioner Nicola Nash MD
--- NOTE | 2019-07-25 14:45 | CASEMGMT ---
JERO CM DC PHONE CALL DC DATE: 07/24/19 DC Disposition: Home Diagnosis on Discharge: CHF LACE/STRATA: 09/16 Intro role of CM to patient via phone. Pt states she is feeling better, but tired. Discussed DC instructions, prescriptions. No questions per patient. Pt has f/u appt with PCP on 08/01/19 and [facility] CM was notified prior to dc of upcoming appt. No further questions per pt and no care improvement suggestions given. Charito PARISN RN ACM
--- NOTE | 2019-07-26 11:31 | CASEMGMT ---
DIETER received a return phone call from Pearl Riggs at [facility]. She said patient's adult protective caseworker through her insurance set up a physician for patient from [facility]. She will call the adult protective caseworker to see what the status is with this. She said she is aware patient is non-compliant with appointments. DIETER let her know that JERO LOUIS at [facility] set up another appt with a Dr at [facility] so she can get home health. DIETER also let her know a referral was made to [facility], which is a program through [facility]. She thanked for the update. Ness HERMAN MSW
--- NOTE | 2019-07-27 09:42 | CASEMGMT ---
This JERO LOUIS received call from Marge Latif, [facility] child care education coordinator, and states that that pt's insurance set her up with a [facility] at this time and they cancelled her appt at [facility] that was scheduled for 08/01/19. Chuy NOGUEIRA CM
== END 2019-07-24 14:02 | disposition home or self-care (01) | DRG 292 ==
LOC: ED 05:19 → PCU 07:11
PROVIDERS: Internal Medicine; Physician Assistant; Admitting Provider Hospitalist; Emergency Provider Emergency Medicine; Visit Provider Internal Medicine
DX: I50.23 Acute on chronic systolic (congestive) heart failure (principal); N30.00 Acute cystitis without hematuria; N18.4 Chronic kidney disease, stage 4 (severe); J96.11 Chronic respiratory failure with hypoxia; Z68.42 Body mass index [BMI] 45.0-49.9, adult; N17.9 Acute kidney failure, unspecified; E11.22 Type 2 diabetes mellitus with diabetic chronic kidney disease; E66.01 Morbid (severe) obesity due to excess calories; F32.9 Major depressive disorder, single episode, unspecified; Z95.810 Presence of automatic (implantable) cardiac defibrillator; I25.10 Atherosclerotic heart disease of native coronary artery without angina pectoris; Z91.19 Patient's noncompliance with other medical treatment and regimen; Z79.82 Long term (current) use of aspirin; Z79.4 Long term (current) use of insulin; Z72.0 Tobacco use; Z96.659 Presence of unspecified artificial knee joint
CPT/HCPCS: 36415; 71045; 80048; 81001; 82962; 83605; 83880; 84484; 85025; 85610; 85730; 87040; 87077; 87086; 87088; 87186; 93005; 94640; 97161; 97166; 99285; A4216; J1940

== ENCOUNTER 2019-08-08 00:27 | Observation (INO) | payer MEDICARE, SELFPAY ==
[2019-07-22 07:51] VITALS: BMI 48.7
[2019-08-08] VITALS (13 sets, daily range): BP systolic 109–130; BP diastolic 61–91; PULSE 68–122; RESP 16–19; TEMP 36.5–37.1; O2SAT 90–97; BMI 46.1; BMI 46.3
--- NOTE | 2019-08-08 01:25 | EKG12_ITS ---
Test Reason : Blood Pressure : / mmHG Vent. Rate : 103 BPM Atrial Rate : 103 BPM P-R Int : 156 ms QRS Dur : 080 ms QT Int : 332 ms P-R-T Axes : 043 -21 078 degrees QTc Int : 434 ms Sinus tachycardia Voltage criteria for left ventricular hypertrophy Inferior infarct (cited on or before 07-MAY-2019), age undetermined Abnormal ECG Confirmed by TISH VELEZ, HALIE ([id number]), graphics editor MILDRED AC ([id number]) on 08/10/2019 10:26:24 A M Referred By: DANIA Confirmed By:GRAHAM WINSTON MD
--- NOTE | 2019-08-08 01:30 | RAD_ITS ---
STUDY: X-RAY CHEST REASON FOR EXAM: Female, 68 years old. Weakness TECHNIQUE: Single view of the chest was obtained COMPARISON: July 22, 2019 chest radiograph FINDINGS: Cardiomegaly with left-sided pacemaker device and mild pulmonary congestive changes. Calcifications of the aortic knob. No definite pleural effusion. : Cardiomegaly with bilateral reticulonodular opacities likely relate with mild pulmonary congestion. No consolidative process or pneumothorax. Electronically Signed: Puneet Jose, at 2:04 EDT Tel , Service support , RAD/Chest 1 View
--- NOTE | 2019-08-08 01:35 | ED.DCSUM_ITS ---
History of Present Illness Chief Complaint: Rash Narrative: This patient is a 68-year-old female who presents with a rash. She complains of a rash and pain below her lower abdomen and at her groin. She has had redness and drainage. Her blood sugars have been running in the 400s. She had a recent hospitalization for congestive heart failure. She denies fever chest pain nausea vomiting diarrhea. She does complain of dyspnea on exertion and lightheadedness. Past Medical History - Allergies and Home Meds Allergies/Adverse Reactions: Allergies No Known Allergies Allergy (Verified 08/08/19 00:31) Primary Care Physician: Care Physician,No Primary [Primary Care Provider] - Prior records reviewed: Yes Past Medical History: - - Congestive heart failure, diabetes Surgical History: - - ICD Placement Smoking Status: Never smoker - Family History Maternal Family History: Reports: Dementia, - Paternal Family History: Reports: Cancer Review of Systems Cardiovascular: Reports: - - Lightheadedness. Denies: Chest pain Respiratory: Reports: Dyspnea Gastrointestinal: Denies: Nausea, Vomiting, Diarrhea Skin: Reports: Rash Physical Exam Vital Signs/Narrative: Vital Signs Temp Pulse Resp BP Pulse Ox 08/08/19 00:29 98.8 F 122 H 19 H 130/72 H 93 Inital Vital Signs reviewed: Yes General: Well nourished, Obese Eyes: EOMI ENT: Moist mucous membranes Neck: Supple Cardiovascular: - - Heart is regular rhythm, slightly tachycardic Respiratory: No distress, CTA bilaterally Abdomen: Soft, Nontender, Nondistended Skin: - - Severe yeast intertrigo at the groin with erythema and weeping Neurological: Alert Psychological: Normal affect Diagnostic/Tx/Re-eval Impressions Chest X-Ray 08/08/19 01:30 08/08/19 01:30 CXR [Chest 1 View] [RAD] Stat Laboratory Results 08/08/19 08/08/19 08/08/19 01:40 01:40 01:40 WBC 8.7 RBC 5.14 Hgb 14.0 Hct 43.9 MCV 85.4 MCH 27.2 MCHC 31.9 L RDW Std Deviation 50.6 H RDW Coeff of Rahel 16.7 H Plt Count 151 MPV 11.8 Immature Gran % (Auto) 0.500 Neut % (Auto) 85.0 H Lymph % (Auto) 4.6 L [place] % (Auto) 8.5 Eos % (Auto) 1.2 Baso % (Auto) 0.2 Absolute Neuts (auto) 7.4 Absolute Lymphs (auto) 0.40 L Nucleated RBC % 0 Sodium 132 L Potassium 4.8 Chloride 98 Carbon Dioxide 28.0 Anion Gap 6 BUN 27 H Creatinine 1.65 H Estim Creat Clear Calc 25.09 Est GFR (MDRD) Af Amer 40 L Est GFR (MDRD) Non-Af 33 L BUN/Creatinine Ratio 16.4 Glucose 502 H* Calcium 8.8 Total Bilirubin 0.80 AST 19 ALT 19 Alkaline Phosphatase 208 H Troponin I < 0.015 B-Natriuretic Peptide 179.2 H Total Protein 6.9 Albumin 2.7 L Globulin 4.2 Albumin/Globulin Ratio 0.6 L - Medical Decision Making Patient was initially evaluated by Dr. Owen who placed initial orders and then I took over the care of the patient. Patient was given Diflucan. At the time my evaluation pulse ox was 89%. She was placed on nasal cannula. Chest x- ray does show mild pulmonary congestion. She was given IV Lasix. Her lab work is essentially unremarkable. Creatinine slightly elevated from previous. BNP actually improved from prior labs. Given oxygen requirement patient will be discussed with the hospitalist and admitted. ED Disposition - Plan for ED Patient: Disposition: Acute Care Hospital [facility] Diagnosis: CHF (congestive heart failure), Hypoxia, Intertrigo Referrals: Care Physician,No Primary [Primary Care Provider] -
[2019-08-08] MEDS: Morphine 4 MG/ML Syringe IV (01:44)
[2019-08-08] MEDS: Ondansetron 4 MG/2 ML Vial IV (01:44)
[2019-08-08] MEDS: Fluconazole 100 MG Tablet 200 MG PO (01:44)
[2019-08-08 01:49] LABS: Absolute Neutrophil Count 7.4 X10^3/uL (2.0-7.7); Basophil# 0.02 X10^3/uL; Basophil% 0.2 % (0-1); Eosinophils% 1.2 % (0-5); Hematocrit 43.9 % (37-47); Lymphocyte % 4.6 % (19-41); Mean Corp Hgb Conc 31.9 g/dL (32-36); Mean Corpuscular Hgb 27.2 pg (27.0-32.0); Mean Corpuscular Volume 85.4 fL (81-99); Mean Platelet Vol. 11.8 fl (6.2-12.0); Monocyte# 0.74 X10^3/uL; Monocyte% 8.5 % (0-10); NRBC Flagged by Analyzer 0 % (0-5); Neutrophil # 7.38 X10^3/uL (2.7-7.7); POSITIVE DIFFERENTIAL YES; Platelet Count 151 K/mm3 (150-450); RBC Distribution Width CV 16.7 % (11.6-14.6); RBC Distribution Width SD 50.6 fl (35.1-43.9); Red Blood Count 5.14 M/mm3 (4.2-5.4); White Blood Count 8.7 K/mm3 (4.4-11.0)
[2019-08-08 01:55] LABS: Differential Indicated SCAN CRITERIA MET
[2019-08-08 02:12] LABS: ALB/GLOB Ratio 0.6 RATIO (0.9-2.4); AST(SGOT) 19 U/L (15-37); Alanine Aminotransfer ALT/SGPT 19 U/L (13-56); Albumin, Serum 2.7 g/dL (3.2-5.0); Alkaline Phosphatase 208 U/L (45-117); Anion Gap 6 (5-15); BUN 27 mg/dL (7-18); BUN/Creat Ratio 16.4 RATIO (10-20); Calcium,Total 8.8 mg/dL (8.5-10.1); Chloride 98 mmol/L (98-107); Creatinine, Serum 1.65 mg/dL (0.55-1.02); EST Glomerular Filtration Rate 33 mL/min (>60); Est Glom Filt Rate - Afr Amer 40 mL/min (>60); Estimated Creatinine Clearance 25.09 ml/min; Globulin 4.2 g/dL (2.2-4.2); Glucose 502 mg/dL (74-106); Potassium 4.8 mmol/L (3.5-5.1); Protein, Total 6.9 g/dL (6.4-8.2); Sodium Level 132 mmol/L (136-145)
--- NOTE | 2019-08-08 02:12 | ED.RN ---
LAB WITH CRITICAL VALUE [address] LIMON NOTIFIED AT THIS TIME.
[2019-08-08 02:20] LABS: BNP,B-Type NATRIURETIC PEPTIDE 179.2 pg/mL (0-100)
[2019-08-08] MEDS: Insulin Lispro 100 UNIT/ML INSULN.PEN 12 UNIT SC (02:33)
[2019-08-08] MEDS: Furosemide 40 MG/4 ML Vial IV ×3 (02:52→14:14)
--- NOTE | 2019-08-08 03:04 | PCM.HP.STD ---
Problem List (1) Severe intertrigo Status: Acute (2) Acute on chronic systolic CHF (congestive heart failure) Status: Acute (3) Depression Status: Chronic (4) Hypertension Status: Chronic (5) History of implantable cardiac defibrillator (ICD) Status: Chronic (6) Stage III chronic kidney disease Status: Chronic (7) Chronic systolic CHF (congestive heart failure) Status: Chronic (8) Type 2 diabetes mellitus Status: Chronic History of Present Illness Date of Admission: 08/08/19 Chief Complaint: Groin rash. The patient is a 68 year old F with past medical history as mentioned above presented to the emergency room because of bilateral groin rash and redness. Her main presenting complaint today was skin rash involving bilateral groins that has been there for about 7 days, associated with significant redness of both groins and without other associated symptoms. She denied itching, fever or chills. Also, she complained of worsening shortness of breath over the last 3 days, exertional, aggravated by minimal activity, associated with intermittent dizziness and without relieving factors. She denies associated chest pain, syncope or presyncope. In the emergency department, she was afebrile, heart rate was stable, blood pressure stable, reportedly pulse ox was 89% room air improved to 97% on 2 L. Her routine blood work was remarkable for sodium of 132, BUN of 27, creatinine 1.65 and her blood glucose was 502. Her EKG revealed normal sinus rhythm, no acute ischemic changes. Troponin was negative. BNP was 179. Chest x-ray showed cardiomegaly and mild bilateral pulmonary vascular congestion. She is being admitted for severe bilateral groin intertrigo with secondary fungal infection probably due to Sheryl as well as mild acute on chronic systolic CHF with hypoxia. Past Medical History Past Medical History (Chronic Problems): Chronic Problems (Last Reviewed 07/22/19 @ 08:33 by Hugh Dial MD) Depression (Chronic) Hypertension (Chronic) History of implantable cardiac defibrillator (ICD) (Chronic) Stage III chronic kidney disease (Chronic) Chronic systolic CHF (congestive heart failure) (Chronic) Type 2 diabetes mellitus (Chronic) Medical History: Medical History (Last Reviewed 07/22/19 @ 08:33 by Hugh Dial MD) Cardiac defibrillator in place Z95.810 DM2 (diabetes mellitus, type 2) E11.9 Allergies No Known Allergies Allergy (Verified 08/08/19 00:31) Home Medications: Ambulatory Orders Medication Instructions Recorded Aspirin [Aspir 81] 81 mg PO DAILY 05/07/19 Sertraline HCl 100 mg PO DAILY 05/07/19 Potassium Chloride [K-Dur] 20 meq PO DAILYCM #30 tab 05/14/19 Nateglinide 1 tab PO TID 07/22/19 Carvedilol [Coreg (Beta Rose Marie)] 3.125 mg PO BID #60 tab 07/24/19 Insulin Lispro [Humalog KwikPen] 5 unit SUBCUT TIDAC #1 insuln.pen 07/24/19 Torsemide 40 mg PO DAILY #60 tab 07/24/19 Insulin Glargine [Lantus SoloStar 12 units SUBCUT QHS 08/08/19 Pen] Surgical History: Surgical History (Last Updated 05/07/19 @ 17:53 by Shakeel Groves DO) Total knee replacement status Z96.659 Surgical History: - - ICD Placement Psychiatric History: No 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 Dyspnea, Syncope Respiratory: Reports: Cough, Shortness of Breath, Shortness of breath upon exertion. Denies: Pleuritic Pain, Sputum production, Wheezing Gastrointestinal: Denies: Abdominal Pain, Constipation, Diarrhea, Nausea, Vomiting Genitourinary: Denies: Dysuria, Frequency, Hematuria Musculoskeletal: Denies: Arm Pain, Back Pain, Foot Pain Skin: Reports: Rash. Denies: Dryness, Pruritis Neurological: Denies: Balance problems, Double vision, Change in Speech, Slurred speech, Confusion, Headaches, Incoordination Psychiatric: Reports: Depression. Denies: Anxiety Endocrine: Denies: Change in Body Habitus, Polydipsia, Polyuria VTE Information - Inpt Only VTE Present on Admission: No VTE Mechan Device Prophylaxis: None VTE Pharm Prophylaxis ordered?: Yes Patient Problems: Active and Suspected Problems (Last Reviewed 07/22/19 @ 08:33 by Hugh Dial MD) Severe intertrigo (Acute) Acute on chronic systolic CHF (congestive heart failure) (Acute) - Physical Exam General: Alert, Oriented x3, Cooperative, No apparent distress, - HEENT: Atraumatic, PERRLA, EOMI, Normocephalic Oral: Moist Mucosa, No Gingival or Mucosal Lesions/ Ulcerations Neck: Supple, No JVD, Trachea Midline, Thyroid Normal Size and Texture Lungs: No rhonchi, No wheeze, Diminished, Rales, - - Decreased breath sounds bilateral, more prominent at the bases with faint bilateral basal crackles. Cardiovascular: Regular rate, Regular Rhythm, Normal S1, Normal S2, PMI Normal, - Abdomen: Bowel Sounds Present, Soft, Non Tender, Non-Distended, No Hepato-splenomegaly, Obese Extremities: No clubbing, No cyanosis, No edema Skin: Rash Present - Significant skin rash with erythema, skin excoriation on both groins. Lymphatic: No Cervical, Supraclavicular, or Inguinal Adenopathy Neurological: Cranial nerves II-XII grossly intact, Motor Exam 5/5 strength throughout Psych/Mental Status: Normal Affect, Appropriate, Alert and oriented to time, place, person, mood and affect Vital Signs Temp Pulse Resp BP Pulse Ox 98.8 F 68 18 116/70 97 08/08/19 00:29 08/08/19 02:53 08/08/19 02:53 08/08/19 02:53 08/08/19 02:53 Oxygen Flow Rate (L/min) 2 Oxygen Delivery Method Nasal Cannula Weight: 252 lb 6.868 oz Body Mass Index (BMI) 46.1 Laboratory Tests Past 24 Hrs 08/08/19 08/08/19 08/08/19 01:40 01:40 01:40 WBC 8.7 RBC 5.14 Hgb 14.0 Hct 43.9 MCV 85.4 MCH 27.2 MCHC 31.9 L RDW Std Deviation 50.6 H RDW Coeff of Rahel 16.7 H Plt Count 151 MPV 11.8 Immature Gran % (Auto) 0.500 Neut % (Auto) 85.0 H Lymph % (Auto) 4.6 L [place] % (Auto) 8.5 Eos % (Auto) 1.2 Baso % (Auto) 0.2 Absolute Neuts (auto) 7.4 Absolute Lymphs (auto) 0.40 L Nucleated RBC % 0 Sodium 132 L Potassium 4.8 Chloride 98 Carbon Dioxide 28.0 Anion Gap 6 BUN 27 H Creatinine 1.65 H Estim Creat Clear Calc 25.09 Est GFR (MDRD) Af Amer 40 L Est GFR (MDRD) Non-Af 33 L BUN/Creatinine Ratio 16.4 Glucose 502 H* Calcium 8.8 Total Bilirubin 0.80 AST 19 ALT 19 Alkaline Phosphatase 208 H Troponin I < 0.015 B-Natriuretic Peptide 179.2 H Total Protein 6.9 Albumin 2.7 L Globulin 4.2 Albumin/Globulin Ratio 0.6 L Clinical Impression(s) from Imaging Studies Chest X-Ray 08/08/19 01:30 Assessment/Plan All Active Problems (Last Reviewed 07/22/19 @ 08:33 by Hugh Dial MD) Severe intertrigo (Acute) Acute on chronic systolic CHF (congestive heart failure) (Acute) This is a 68 years old female patient presented to the emergency room because of bilateral groin skin rash and redness and also complained of increasing shortness of breath which is mainly exertional, found to have severe bilateral groin intertrigo secondary fungal infection as well as acute on chronic systolic CHF and hypoxia. #1 acute bilateral groin severe intertrigo with superimposed secondary fungal infection: Fungal infection likely due to Sheryl. She has been afebrile, no leukocytosis. Plan: Admit to PCU for CHF as below, start oral Diflucan for 7 days, apply drying powder for both groins, PT OT evaluation and treatment. #2 mild acute on chronic systolic CHF: Patient was hypoxic in the ED, pulse ox was 89% on room air reportedly. Chest x-ray reviewed. EKG without ischemic changes. Troponin is negative. Ejection fraction was 20% on echocardiogram on April,. Plan: Admit to PCU, cardiac monitoring, start IV Lasix, fluid restriction, repeat CBC and BMP tomorrow morning, continue Coreg and aspirin. #3 hyperglycemia/uncontrolled type 2 diabetes mellitus: Admission blood glucose was 502 without evidence of acute DKA. Serum bicarb was 28 anion gap was 6. Hemoglobin A1c was 9.9 on April,. She received 12 units of Humalog in the ED. Plan: ADA diet, Accu-Cheks every 6 hours, insulin sliding scale, continue Lantus nightly and pre-meal Humalog, continue nateglinide. #4 hyponatremia: This is probably pseudohyponatremia secondary to hyperglycemia. Expect serum sodium to improve after correction of blood glucose. #5 chronic systolic CHF status post ICD: With acute exacerbation as above. For IV diuresis, continue Coreg and aspirin. Patient had 2D echocardiogram on April, that showed ejection fraction of 20%. #6 stage III chronic kidney disease: Baseline creatinine has been around 1.2 to 2 mg/dL, admission creatinine is 1.65, stable at baseline. #7 hypertension: Blood pressure stable, continue Coreg. #8 depression: Stable, continue sertraline. #9 DVT prophylaxis: Subcu heparin. This note was generated with [employer] dictation software. It may contain incorrect words, spelling, and punctuation that were not noted in checking the note before signing. Code Visit Inpatient E&M: 95417 Init Hosp L2
[2019-08-08] MEDS: Acetaminophen 325 MG Tablet 650 MG PO (04:34)
[2019-08-08 05:40] LABS: Absolute Lymphocyte Count 0.74 X10^3/uL (0.83-4.51); Absolute Neutrophil Count 6.2 X10^3/uL (2.0-7.7); Basophil# 0.01 X10^3/uL; Basophil% 0.1 % (0-1); Eosinophil# 0.11 X10^3/uL; Eosinophils% 1.4 % (0-5); Hematocrit 40.4 % (37-47); Hemoglobin 12.7 g/dL (12.0-15.0); Lymphocyte # 0.74 X10^3/ul (4.0); Lymphocyte % 9.4 % (19-41); Mean Corp Hgb Conc 31.4 g/dL (32-36); Mean Corpuscular Hgb 26.8 pg (27.0-32.0); Mean Corpuscular Volume 85.2 fL (81-99); Mean Platelet Vol. 12.8 fl (6.2-12.0); Monocyte# 0.76 X10^3/uL; Monocyte% 9.7 % (0-10); NRBC Flagged by Analyzer 0 % (0-5); Neutrophil # 6.22 X10^3/uL (2.7-7.7); Platelet Count 166 K/mm3 (150-450); RBC Distribution Width CV 16.7 % (11.6-14.6); RBC Distribution Width SD 50.5 fl (35.1-43.9); Red Blood Count 4.74 M/mm3 (4.2-5.4); White Blood Count 7.9 K/mm3 (4.4-11.0)
[2019-08-08 05:43] LABS: International Normalized Ratio 1.1; Prothrombin Time (Protime)PT. 13.5 SECONDS (11.7-14.9)
[2019-08-08 05:55] LABS: Anion Gap 9 (5-15); BUN 28 mg/dL (7-18); BUN/Creat Ratio 17.7 RATIO (10-20); Calcium,Total 8.9 mg/dL (8.5-10.1); Chloride 101 mmol/L (98-107); Creatinine, Serum 1.58 mg/dL (0.55-1.02); EST Glomerular Filtration Rate 34 mL/min (>60); Est Glom Filt Rate - Afr Amer 42 mL/min (>60); Glucose 349 mg/dL (74-106); Potassium 3.9 mmol/L (3.5-5.1); Sodium Level 138 mmol/L (136-145)
[2019-08-08] MEDS: Heparin Injection (Vial) 5,000 UNIT/ML VIAL 5000 UNIT SC ×3 (06:12→21:28)
[2019-08-08] MEDS: Insulin Lispro 100 UNIT/ML INSULN.PEN SC ×7 (06:16→21:29)
[2019-08-08 06:51] LABS: Bedside Glucose 281 mg/dL (70-110)
--- NOTE | 2019-08-08 07:23 | PCM.PROGNOTE ---
Patient Problems: Active and Suspected Problems (Last Reviewed 07/22/19 @ 08:33 by Hugh Dial MD) Severe intertrigo (Acute) Acute on chronic systolic CHF (congestive heart failure) (Acute) Subjective: is a 68-year-old female with type 2 diabetes mellitus, chronic systolic congestive heart failure, stage III chronic renal failure, status post AICD, hypertension, depression and morbid obesity who presented to the ED at [facility] c/o a rash in the groin and increasing SOB over the past few days. Vital signs at presentation to the emergency room were temperature 98.8, pulse rate 122, 2, respiratory rate 19 and the pulse ox on room air was 93%. CBC was unremarkable. The white blood cell count was within normal limits but there was a left shift present. Sodium was mildly decreased at 132. BUN was 27 and the creatinine was 1.65 which is within her baseline. Random blood sugar was 502. LFTs were remarkable for an elevated alkaline phosphatase at 208. Troponin was less than 0.015. BNP was 179. - Physical Exam General: Alert, Oriented x3, Cooperative, No apparent distress, Well developed, Well nourished HEENT: Atraumatic, PERRLA, EOMI, Normocephalic Oral: Dry Mucosa Neck: Supple, No Nodes, Trachea Midline Lungs: Clear to auscultation - anterior and lateral, No rhonchi, No wheeze, No rales, - - Not tachypnea, no conversational dyspnea, no accessory muscle use Cardiovascular: Regular rate, Regular Rhythm, Normal S1, Normal S2, No Gallop Abdomen: Bowel Sounds Present, Soft, Non Tender, Non-Distended, Obese, - - she has a red rash beneath the pannus with satellite lesions consistent with intertrigo. No odor and no pus, no evidence of infection Extremities: No clubbing, No cyanosis, No Calf Tenderness, Diminished Peripheral Pulses, Edema - 1+ Neurological: Cranial nerves II-XII grossly intact, Neuro grossly intact Psych/Mental Status: Normal Affect, Appropriate Vital Signs Temp Pulse Resp BP Pulse Ox 98.2 F 104 H 16 129/91 H 97 08/08/19 03:20 08/08/19 04:29 08/08/19 03:20 08/08/19 03:20 08/08/19 03:20 Oxygen Flow Rate (L/min) 3 Oxygen Delivery Method Nasal Cannula Weight: 253 lb 4.978 oz Body Mass Index (BMI) 46.3 Laboratory Tests Past 24 Hrs 08/08/19 08/08/19 08/08/19 01:40 01:40 01:40 WBC 8.7 RBC 5.14 Hgb 14.0 Hct 43.9 MCV 85.4 MCH 27.2 MCHC 31.9 L RDW Std Deviation 50.6 H RDW Coeff of Rahel 16.7 H Plt Count 151 MPV 11.8 Immature Gran % (Auto) 0.500 Neut % (Auto) 85.0 H Lymph % (Auto) 4.6 L [place] % (Auto) 8.5 Eos % (Auto) 1.2 Baso % (Auto) 0.2 Absolute Neuts (auto) 7.4 Absolute Lymphs (auto) 0.40 L Nucleated RBC % 0 PT INR Sodium 132 L Potassium 4.8 Chloride 98 Carbon Dioxide 28.0 Anion Gap 6 BUN 27 H Creatinine 1.65 H Estim Creat Clear Calc 25.09 Est GFR (MDRD) Af Amer 40 L Est GFR (MDRD) Non-Af 33 L BUN/Creatinine Ratio 16.4 Glucose 502 H* Calcium 8.8 Total Bilirubin 0.80 AST 19 ALT 19 Alkaline Phosphatase 208 H Troponin I < 0.015 B-Natriuretic Peptide 179.2 H Total Protein 6.9 Albumin 2.7 L Globulin 4.2 Albumin/Globulin Ratio 0.6 L 08/08/19 08/08/19 08/08/19 05:08 05:08 05:08 WBC 7.9 RBC 4.74 Hgb 12.7 Hct 40.4 MCV 85.2 MCH 26.8 L MCHC 31.4 L RDW Std Deviation 50.5 H RDW Coeff of Rahel 16.7 H Plt Count 166 MPV 12.8 H Immature Gran % (Auto) 0.400 Neut % (Auto) 79.0 H Lymph % (Auto) 9.4 L [place] % (Auto) 9.7 Eos % (Auto) 1.4 Baso % (Auto) 0.1 Absolute Neuts (auto) 6.2 Absolute Lymphs (auto) 0.74 L Nucleated RBC % 0 PT 13.5 INR 1.1 Sodium 138 Potassium 3.9 Chloride 101 Carbon Dioxide 28.0 Anion Gap 9 BUN 28 H Creatinine 1.58 H Estim Creat Clear Calc 26.20 Est GFR (MDRD) Af Amer 42 L Est GFR (MDRD) Non-Af 34 L BUN/Creatinine Ratio 17.7 Glucose 349 H Calcium 8.9 Total Bilirubin AST ALT Alkaline Phosphatase Troponin I B-Natriuretic Peptide Total Protein Albumin Globulin Albumin/Globulin Ratio POC Glucose 08/08/19 06:15 POC Glucose 281 H Medical Necessity - Tobacco Use Smoking Status: Never smoker Assessment/Plan All Active Problems (Last Reviewed 07/22/19 @ 08:33 by Hugh Dial MD) Severe intertrigo (Acute) Acute on chronic systolic CHF (congestive heart failure) (Acute) Impressions 1. Intertrigo with no evidence of secondary bacterial infection. Will continue fluconazole as ordered by Dr. Colmenares. 2. Hyponatremia-resolved 3. Uncontrolled diabetes mellitus type 2 - adjust the insulin to get better BS control. Change the sliding scale insulin to before meals and at bedtime. Check a hemoglobin A1c in the a.m. 4. Acute congestive heart failure ruled out. Chronic systolic congestive heart failure. Discontinue IV Lasix and restart her regular dose of Lasix. 5. Severe cardiomyopathy with a 20% ejection fraction and severe segmental systolic dysfunction on an echocardiogram done in April 2019. Not sure why she has a CM with segmental wall motion abnormalities - she denies a hx of CAD 6. Chronic renal failure stage III-stable 7. Status post AICD 8. Hypertension 9. Depression 10. Morbid obesity 11. DVT prophylaxis with subcutaneous heparin. Has an upcoming appt with Dr. 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
[2019-08-08] MEDS: Carvedilol 3.125 MG TABLET PO ×2 (09:15→21:28)
[2019-08-08] MEDS: Sertraline 100 MG Tablet PO (09:15)
[2019-08-08] MEDS: Aspirin E.C. 81 MG Tablet PO (09:15)
[2019-08-08] MEDS: Glucerna Shake 120 ML LIQUID PO (09:15)
[2019-08-08] MEDS: Nystatin Powder 15gm Bottle 1 APPLIC TOPICAL ×2 (09:16→21:27)
[2019-08-08 11:11] LABS: Bedside Glucose 197 mg/dL (70-110)
--- NOTE | 2019-08-08 12:07 | CASEMGMT ---
SW called [facility] and let them know patient is in the hospital. They are still working on finding aides for patient. She does have visiting physicians through [facility]. She most recently had an appt with them 07-30. Physician feels patient does not have an exacerbation of CHF. Ness [employer]MAN [employer]
[2019-08-08] MEDS: 0.9% NaCl Peripheral Flush Adult/Peds IV (14:14)
[2019-08-08 16:03] LABS: Mucous, Urine 0 SEEN /hpf (<or=2+); Squamous Epithelial Cells - UA 0 SEEN /hpf (5-10)
[2019-08-08 16:07] LABS: Color, Urine Yellow (Yellow); Glucose, Dipstick Normal (Normal); Ketone-Dipstick Negative (Negative); Leukocyte Esterase-Dipstick 500 /ul (Negative); Nitrite-Dipstick Positive (Negative); Occult Blood-Urine 25 /ul (Negative); Protein-Dipstick Negative (Negative); Urine Bilirubin Dipstick Negative (Negative); Urine Clarity Clear (Clear); Urine Urobilinogen Normal (Normal)
[2019-08-08 16:18] LABS: Bacteria 1+ /hpf (None Seen); Red Blood Cells-Urine 0-5 SEEN /hpf (0-5); White Blood Cells 0-5 SEEN /hpf (0-5)
[2019-08-08 16:30] LABS: Bedside Glucose 343 mg/dL (70-110)
[2019-08-08 22:30] LABS: Bedside Glucose 285 mg/dL (70-110)
[2019-08-09] VITALS (11 sets, daily range): BP systolic 94–117; BP diastolic 52–62; PULSE 78–94; RESP 16–18; TEMP 36.6–36.8; O2SAT 88–96
[2019-08-09 00:21] LABS: Bedside Glucose 260 mg/dL (70-110)
[2019-08-09] MEDS: Heparin Injection (Vial) 5,000 UNIT/ML VIAL 5000 UNIT SC ×3 (05:16→22:22)
[2019-08-09 06:13] LABS: Absolute Lymphocyte Count 0.78 X10^3/uL (0.83-4.51); Absolute Neutrophil Count 4.4 X10^3/uL (2.0-7.7); Basophil# 0.02 X10^3/uL; Basophil% 0.3 % (0-1); Eosinophils% 1.7 % (0-5); Hematocrit 43.5 % (37-47); Hemoglobin 13.4 g/dL (12.0-15.0); Lymphocyte # 0.78 X10^3/ul (4.0); Lymphocyte % 13.2 % (19-41); Mean Corp Hgb Conc 30.8 g/dL (32-36); Mean Corpuscular Hgb 26.9 pg (27.0-32.0); Mean Corpuscular Volume 87.3 fL (81-99); Mean Platelet Vol. 12.7 fl (6.2-12.0); Monocyte# 0.62 X10^3/uL; Monocyte% 10.5 % (0-10); NRBC Flagged by Analyzer 0 % (0-5); Neutrophil # 4.38 X10^3/uL (2.7-7.7); Neutrophil % 73.8 % (47-70); Platelet Count 150 K/mm3 (150-450); RBC Distribution Width CV 17.1 % (11.6-14.6); RBC Distribution Width SD 53.1 fl (35.1-43.9); Red Blood Count 4.98 M/mm3 (4.2-5.4); White Blood Count 5.9 K/mm3 (4.4-11.0)
[2019-08-09 06:26] LABS: Anion Gap 4 (5-15); BUN 33 mg/dL (7-18); BUN/Creat Ratio 19.2 RATIO (10-20); Calcium,Total 8.8 mg/dL (8.5-10.1); Chloride 98 mmol/L (98-107); Creatinine, Serum 1.72 mg/dL (0.55-1.02); EST Glomerular Filtration Rate 31 mL/min (>60); Est Glom Filt Rate - Afr Amer 38 mL/min (>60); Estimated Creatinine Clearance 24.07 ml/min; Glucose 327 mg/dL (74-106); Magnesium 1.4 mg/dL (1.6-2.6); Potassium 4.1 mmol/L (3.5-5.1); Sodium Level 136 mmol/L (136-145)
[2019-08-09 07:54] LABS: Hemoglobin A1c 12.2 % (4.2-6.3)
[2019-08-09 08:01] LABS: Bedside Glucose 308 mg/dL (70-110)
[2019-08-09] MEDS: Insulin Lispro 100 UNIT/ML INSULN.PEN SC ×5 (08:17→16:54)
[2019-08-09] MEDS: Aspirin E.C. 81 MG Tablet PO (09:12)
[2019-08-09] MEDS: Furosemide 80 MG Tablet PO (09:12)
[2019-08-09] MEDS: Sertraline 100 MG Tablet PO (09:12)
[2019-08-09] MEDS: Carvedilol 3.125 MG TABLET PO ×2 (09:12→22:22)
[2019-08-09] MEDS: Fluconazole 100 MG Tablet 200 MG PO (09:12)
[2019-08-09] MEDS: Nystatin Powder 15gm Bottle 1 APPLIC TOPICAL ×2 (09:12→22:20)
--- NOTE | 2019-08-09 10:50 | NURSING ---
The redness to the abdominal folds and under breasts is improving. patient states there is less discomfort as well. continue with current treatment of calmoseptine and pillow cases to prevent skin on skin and to absorb moisture. will monitor as needed.
--- NOTE | 2019-08-09 11:09 | CASEMGMT ---
Case Management Progress Note: This copy writer went to patient bedside, introduced self and role. ROSE MARY for reviewed with patient in regards to her current treatment in the hospital. Notified and made aware that Outpatient billing would be determined by her insurance policy and status during hospital stay is continually reviewed for changes in condition that may warrant inpatient stay. Patient stated understanding and signed BAZZI form which was placed in patient chart, patient provided a copy of BAZZI form. Denies any questions. Patient states that she has an appointment with Dr Ybarra tomorrow and will need to reschedule it, states that she does not feel she is ready to go home today but has not seen rounding MOD today. Encouraged patient to discuss this with the MOD when they round as this CM is currently assisting the primary CM and not sure the plan for her today. Notified and updated primary CM Christel Currie to this. Rosey Lorenz RNCM
[2019-08-09 11:20] LABS: Bedside Glucose 372 mg/dL (70-110)
[2019-08-09 16:45] LABS: Bedside Glucose 277 mg/dL (70-110)
[2019-08-09] MEDS: Insulin Lispro 100 UNIT/ML INSULN.PEN 10 UNIT SC (16:54)
--- NOTE | 2019-08-09 19:39 | PN_ITS ---
Patient Problems: Active and Suspected Problems (Last Reviewed 07/22/19 @ 08:33 by Hugh Dial MD) Severe intertrigo (Acute) Acute on chronic systolic CHF (congestive heart failure) (Acute) Subjective: All events of the past 24 hours of been reviewed. Afebrile since admission Hemodynamically stable, 94% on room air at rest Incontinent of urine All lab was personally reviewed. White blood cell count is 5.9 with 74% neutrophils. Hemoglobin is 13.4 and the platelets are within normal limits. Serum bicarb is increased to 34 today and the BUN is 33 with a creatinine of 1.72, up from 1.580 at admission........ suspect secondary to IV Lasix given for suspected CHF which has been ruled out. Hemoglobin A1c is 12.2 and the magnesium is low today at 1.4. She complained of dysuria and underwent straight cath. UA is nitrite positive and leukocyte esterase positive with 0-5 WBCs and +1 bacteria. No culture was sent. she is afebrile with a normal WBC count and I suspect that the dysuria is due to fungal vaginitis and not a bacterial UTI. We will continue Diflucan - Physical Exam General: Alert, Cooperative Oral: Dry Mucosa Lungs: Clear to auscultation, Diminished Cardiovascular: Regular rate, Regular Rhythm, Normal S1, Normal S2, No Gallop Abdomen: Bowel Sounds Present, Soft, Non Tender, Obese Extremities: No edema Skin: - - intertrigo is improving Neurological: Cranial nerves II-XII grossly intact, Neuro grossly intact Psych/Mental Status: Appropriate Vital Signs Temp Pulse Resp BP Pulse Ox 98.2 F 92 16 94/62 94 08/09/19 15:10 08/09/19 15:10 08/09/19 15:10 08/09/19 15:10 08/09/19 15:10 Oxygen Flow Rate (L/min) 1 Oxygen Delivery Method Room Air Weight: 251 lb 1.704 oz Body Mass Index (BMI) 46.3 Intake and Output for Last 24 Hours 08/07/19 08/08/19 08/09/19 23:59 23:59 23:59 Intake Total 1035 / 1035 910 / 910 Output Total 1175 / 1175 450 / 450 Balance -140 / -140 460 / 460 Laboratory Tests Past 24 Hrs 08/09/19 08/09/1908/09/19 05:40 05:40 05:40 WBC 5.9 RBC 4.98 Hgb 13.4 Hct 43.5 MCV 87.3 MCH 26.9 L MCHC 30.8 L RDW Std Deviation 53.1 H RDW Coeff of Rahel 17.1 H Plt Count 150 MPV 12.7 H Immature Gran % (Auto) 0.500 Neut % (Auto) 73.8 H Lymph % (Auto) 13.2 L [place] % (Auto) 10.5 H Eos % (Auto) 1.7 Baso % (Auto) 0.3 Absolute Neuts (auto) 4.4 Absolute Lymphs (auto) 0.78 L Nucleated RBC % 0 Sodium 136 Potassium 4.1 Chloride 98 Carbon Dioxide 34.0 H Anion Gap 4 L BUN 33 H Creatinine 1.72 H Estim Creat Clear Calc 24.07 Est GFR (MDRD) Af Amer 38 L Est GFR (MDRD) Non-Af 31 L BUN/Creatinine Ratio 19.2 Glucose 327 H Hemoglobin A1c 12.2 H Calcium 8.8 Magnesium 1.4 L POC Glucose 08/09/19 08/09/19 08/09/19 16:36 11:12 07:55 POC Glucose 277 H 372 H 308 H 08/09/19 08/08/19 00:11 21:22 POC Glucose 260 H 285 H Medical Necessity - Tobacco Use Smoking Status: Never smoker Assessment/Plan All Active Problems (Last Reviewed 07/22/19 @ 08:33 by Hugh Dial MD) Severe intertrigo (Acute) Acute on chronic systolic CHF (congestive heart failure) (Acute) Impressions 1. Intertrigo with no evidence of secondary bacterial infection. Will continue fluconazole as ordered by Dr. Colmenares. 2. Hyponatremia-resolved 3. Uncontrolled diabetes mellitus type 2 - adjust the insulin to get better BS control. HGBA1C is 12.2%. Change the Lantus to BID and increase the mealtime Humalog. Continue to monitor blood sugars before meals and at bedtime 4. Acute congestive heart failure ruled out. Chronic systolic congestive heart failure. Discontinue IV Lasix and restart her regular dose of Lasix. 5. Severe cardiomyopathy with a 20% ejection fraction and severe segmental systolic dysfunction on an echocardiogram done in April 2019. Not sure why she has a CM with segmental wall motion abnormalities - she denies a hx of CAD 6. Chronic renal failure stage III-stable 7. Status post AICD 8. Hypertension 9. Depression 10. Morbid obesity 11. DVT prophylaxis with subcutaneous heparin. 12. Dysuria-suspect secondary to Sheryl vaginitis and not due to bacterial urinary tract infection DC home when BS's are consistently less than 250.....her PCP can fine tune the insulin. Code Visit OBSV E&M: 90226 Subsequent observation care L2
[2019-08-09] MEDS: Magnesium Sulfate 4gm/100mL 4 GM/100 ML IV.SOLN. IV (22:18)
[2019-08-09 23:35] LABS: Bedside Glucose 271 mg/dL (70-110)
[2019-08-10] VITALS (11 sets, daily range): BP systolic 98–117; BP diastolic 56–74; PULSE 76–97; RESP 16–17; TEMP 36.3–36.7; O2SAT 88–98
[2019-08-10] MEDS: Acetaminophen 325 MG Tablet 650 MG PO (02:08)
[2019-08-10 05:26] LABS: Anion Gap 10 (5-15); BUN 42 mg/dL (7-18); BUN/Creat Ratio 22.1 RATIO (10-20); Calcium,Total 8.7 mg/dL (8.5-10.1); Chloride 99 mmol/L (98-107); EST Glomerular Filtration Rate 28 mL/min (>60); Est Glom Filt Rate - Afr Amer 34 mL/min (>60); Estimated Creatinine Clearance 21.79 ml/min; Glucose 297 mg/dL (74-106); Magnesium 2.9 mg/dL (1.6-2.6); Potassium 4.3 mmol/L (3.5-5.1); Sodium Level 139 mmol/L (136-145)
[2019-08-10] MEDS: Heparin Injection (Vial) 5,000 UNIT/ML VIAL 5000 UNIT SC ×2 (05:52→14:40)
[2019-08-10] MEDS: Insulin Lispro 100 UNIT/ML INSULN.PEN SC ×3 (06:50→17:25)
[2019-08-10] MEDS: Insulin Lispro 100 UNIT/ML INSULN.PEN 10 UNIT SC ×3 (06:50→17:24)
[2019-08-10 06:56] LABS: Bedside Glucose 299 mg/dL (70-110)
[2019-08-10] MEDS: Aspirin E.C. 81 MG Tablet PO (08:15)
[2019-08-10] MEDS: Fluconazole 100 MG Tablet 200 MG PO (08:15)
[2019-08-10] MEDS: Carvedilol 3.125 MG TABLET PO (08:15)
[2019-08-10] MEDS: Sertraline 100 MG Tablet PO (08:16)
[2019-08-10] MEDS: Furosemide 80 MG Tablet PO (08:16)
[2019-08-10] MEDS: Nystatin Powder 15gm Bottle 1 APPLIC TOPICAL (08:19)
--- NOTE | 2019-08-10 12:12 | CASEMGMT ---
Addendum entered by Christel Condon 08/10/19 15:19: Contact number for pt's visiting physician group is [facility] [phone]. Chuy NOGUEIRA CM Addendum entered by Christel Condon 08/10/19 13:54: Home oxygen order faxed to [facility] at this time. Chuy NOGUEIRA CM Original Note: Per Marlin NOGUEIRA, pt does qualify for home oxygen at this time and therapy is recommending addl therapy for pt at this time. This JERO CM to room to discuss discharge plan with pt at this time and pt is agreeable for home oxygen and HHC at this time. Pt provided with in-network list for DME and HHC at this time. Pt states she would like [facility] for the home oxygen and [facility] for the home health at this time. Pt to be set up for SN, PT/OT, aide, SW and single pointed operator c/sx1 through C. Marlin from [facility] aware and states they can take pt at this time. Marlin is provided with contact info for [facility] which is pt's visiting physician group. Pt states no concerns with going home at time of discharge and declines SNF at this time. Pt is updated on all, voices understanding. Chuy NOGUEIRA CM
--- NOTE | 2019-08-10 14:46 | CASEMGMT ---
DIETER called Pearl Riggs with [facility]. SW left her a voice mail and let her know we were wondering if patient would be a candidate for [employer] and some kind of home delivered meals. DEITER also let her know patient will have [facility] retirement, PT, OT, aide, and Social Work. SW let her know patient will be d/c today. Ness REYES
[2019-08-10 16:26] LABS: Bedside Glucose 279 mg/dL (70-110)
[2019-08-10 16:30] LABS: Bedside Glucose 311 mg/dL (70-110)
--- NOTE | 2019-08-10 16:38 | PCM.DC ---
- Discharge Diagnoses Current Active Problems: Current Active and Chronic Problems (Last Reviewed 07/22/19 @ 08:33 by Hugh Dial MD) Severe intertrigo (Acute) Acute on chronic systolic CHF (congestive heart failure) (Acute) Depression (Chronic) Hypertension (Chronic) History of implantable cardiac defibrillator (ICD) (Chronic) Stage III chronic kidney disease (Chronic) Chronic systolic CHF (congestive heart failure) (Chronic) Type 2 diabetes mellitus (Chronic) You will use the following diet at home:: Calorie/Carbohydrate Controlled (specify 1200, 1400, etc) - 1800 calories, Cardiac Your food should be the consistency of: Regular Your liquids should be the consistency of: Regular/Thin Discharge Activity: Return to Normal Activity Call your doctor if you observe: Fever of 101 or Higher, Inability to urinate, Shortness of breath, Dizziness, Fainting spells, Chest pain, Calf discomfort Instructions: Weight Management: Healthy Eating, MyPlate Worksheet: 1,800 Calories Additional Instructions: Your blood sugars are very uncontrolled. We have adjusted your insulin to get better control of the blood sugars. You will now be taking the Lantus twice a day......morning and bedtime. Please follow the instructions we give you. When the blood sugars are high it makes it more likely that you will get yeast infections. you should wear the oxygen 24 hours a day. It would be a good idea to get a digital scale and weigh yourself every morning and keep a record. this is one of the best ways that we can tell you are retaining fluid and we can treat it before you need to come to the hospital. If you weight increases by more than 3 lbs 2 days in a row take the Torsemide twice a day until your weight is back to baseline. Tomorrow mornings weight will be your baseline. Allergies/Adverse Reactions: Allergies No Known Allergies Allergy (Verified 08/08/19 00:31) Medications to take at Discharge Aspirin [Aspir 81] 81 mg PO DAILY 05/07/19 Sertraline HCl 100 mg PO DAILY 05/07/19 Potassium Chloride [K-Dur] 20 meq PO DAILYCM #30 tab 05/14/19 Nateglinide 1 tab PO TID 07/22/19 Carvedilol [Coreg (Beta Rose Marie)] 3.125 mg PO BID #60 tab 07/24/19 Torsemide 40 mg PO DAILY #60 tab 07/24/19 Fluconazole [Diflucan] 200 mg PO Q48H #3 tab 08/10/19 Insulin Glargine [Lantus SoloStar Pen] 15 units SUBCUT QHS #5 pen 08/10/19 Insulin Glargine [Lantus SoloStar Pen] 26 units SUBCUT QAM #8 pen 08/10/19 Insulin Lispro [Humalog KwikPen] 10 unit SUBCUT TIDAC #9 insuln.pen 08/10/19 Magnesium Oxide [Mag-Ox 400] 400 mg PO DAILYCM #30 tab 08/10/19 The following prescriptions were given: Fluconazole [Diflucan] 200 mg PO Q48H #3 tab Transmission Status: Pending to [facility] Insulin Lispro [Humalog KwikPen] 10 unit SUBCUT TIDAC #9 insuln.pen Transmission Status: Pending to [facility] Insulin Glargine [Lantus SoloStar Pen] 26 units SUBCUT QAM #8 pen Transmission Status: Pending to [facility] Insulin Glargine [Lantus SoloStar Pen] 15 units SUBCUT QHS #5 pen Transmission Status: Pending to [facility] Magnesium Oxide [Mag-Ox 400] 400 mg PO DAILYCM #30 tab Transmission Status: Pending to [facility] Primary Care Physician: Care Physician,No Primary [Primary Care Provider] - Test Results: Test results from this visit will be discussed in further detail at your follow-up appointment, if applicable. Please Follow Up With: Philipp Ybarra MD When: 1-2 weeks Proposed Discharge Date: 08/10/19
--- NOTE | 2019-08-10 16:53 | PCM.DC.SUM ---
Discharge Date and Diagnosis Date of Admission: 08/08/19 Date of Discharge: 08/10/19 - Primary Discharge Diagnosis Active and Suspected Problems (Last Reviewed 07/22/19 @ 08:33 by Hugh Dial MD) Severe intertrigo (Acute) Acute on chronic systolic CHF (congestive heart failure) (Acute) - ruled out - Secondary Discharge Diagnosis Chronic Problems (Last Reviewed 07/22/19 @ 08:33 by Hugh Dial MD) Depression (Chronic) Hypertension (Chronic) History of implantable cardiac defibrillator (ICD) (Chronic) Stage III chronic kidney disease (Chronic) Chronic systolic CHF (congestive heart failure) (Chronic) Type 2 diabetes mellitus (Chronic) - uncontrolled with a HGBA1C of 12.2% Hospital Course and Treatment Imaging Results: Clinical Impression(s) from Imaging Studies Chest X-Ray 08/08/19 01:30 Consultations 08/08/19 03:24 Consult: Onc/Wound/route sales trainee Routine Comment: 08/08/19 05:09 Consult: Onc/Wound/route sales trainee Routine Comment: Operations: None Procedures: None Summary of Care Provided: Mrs Duvall is a 68-year-old female with type 2 diabetes mellitus, chronic systolic congestive heart failure, stage III chronic renal failure, status post AICD, hypertension, depression and morbid obesity who presented to the ED at [facility] c/o a rash in the groin and increasing SOB over the past few days. Vital signs at presentation to the emergency room were temperature 98.8, pulse rate 122, BP 130/72, respiratory rate 19 and the pulse ox on room air was 93%. CBC was unremarkable. The white blood cell count was within normal limits but there was a left shift present. Sodium was mildly decreased at 132. BUN was 27 and the creatinine was 1.65 which is within her baseline. Random blood sugar was 502. LFTs were remarkable for an elevated alkaline phosphatase at 208. Troponin was less than 0.015. BNP was 179. Chest x-ray was reported by the radiologist as having mild pulmonary vascular congestion. On PE she had severe intertrigo beneath the pannus and beneath the breasts. She has no aides at home and she washes herself in the shower on a shower chair. She was admitted to the hospital with a diagnosis of acute bilateral groin severe intertrigo and was started on Diflucan. She additionally was treated for mild acute on chronic systolic congestive heart failure and was started on IV Lasix. Lab 1 days after admission showed new metabolic alkalosis, more likely than not due to volume contraction. A BNP of 179 in a patient with stage IV renal failure is actually low. Intravenous Lasix was discontinued and p.o. Lasix was ordered to start the following morning. She was encouraged to increase her fluid intake. A hemoglobin A1c was checked and was elevated at 12.2. Lantus was increased to twice daily and the mealtime insulin was increased significantly. Sliding scale insulin 3 times daily before meals was also ordered. She was seen by the social research assistant and [facility] was arranged with an aide 5 days a week. BS's did improve somewhat with the changes in the insulin regimen, the dosages were increased again on the day of DC. She was discharged home with [facility] on 08/11/2019. She was instructed to stick to an 1800-calorie diet. She was given prescriptions for the increased doses of Lantus and also for Humalog. She was also given a prescription for Diflucan 200 mg every 48 hours for 3 more doses. This is the appropriate dose for pts with stage 4 renal failure. She has a physician who sees her at her house and will follow up as appropriate. She will also follow up with Dr. Phliipp Ybarra for her new video manager in 1-2 weeks. General: Alert, Cooperative, pleasant, NAD, lying in bed Oral: Dry Mucosa Lungs: Clear to auscultation, Diminished Cardiovascular: Regular rate, Regular Rhythm, Normal S1, Normal S2, No Gallop Abdomen: Bowel Sounds Present, Soft, Non Tender, Obese Extremities: No edema Skin: - - intertrigo is improving, the superficial openings in the skin are healed beneath the pannus. There intertrigo beneath the left breast still has a few tiny openings in the skin which burn. The improtance of keeping the areas under the breasts and the belly very clean and dry was stressed and she was told she must wash under these areas daily. I suspect her hygiene will improve with the aid present 5 days a week. Neurological: Cranial nerves II-XII grossly intact, Neuro grossly intact Psych/Mental Status: Appropriate This note was generated with [employer] software. It may contain incorrect words, spelling, and punctuation that were not noted in checking the note before signing. - Physical Exam Vital Signs Temp Pulse Resp BP Pulse Ox 98.1 F 97 17 98/67 97 08/10/19 14:00 08/10/19 15:45 08/10/19 14:00 08/10/19 14:00 08/10/19 14:00 Oxygen Flow Rate (L/min) 2 Oxygen Delivery Method Nasal Cannula Weight: 250 lb 7.122 oz Body Mass Index (BMI) 46.3 Intake and Output for Last 24 Hours 08/08/19 08/09/19 08/10/19 23:59 23:59 23:59 Intake Total 1035 / 1035 910 / 1030 680 / 680 Output Total 1175 / 1175 450 / 850 400 / 400 Balance -140 / -140 460 / 180 280 / 280 Laboratory Tests Past 24 Hrs 08/10/19 04:34 Sodium 139 Potassium 4.3 Chloride 99 Carbon Dioxide 30.0 Anion Gap 10 BUN 42 H Creatinine 1.90 H Estim Creat Clear Calc 21.79 Est GFR (MDRD) Af Amer 34 L Est GFR (MDRD) Non-Af 28 L BUN/Creatinine Ratio 22.1 H Glucose 297 H Calcium 8.7 Magnesium 2.9 H POC Glucose 08/10/19 08/10/19 08/10/19 16:26 10:59 06:47 POC Glucose 311 H 279 H 299 H 08/09/19 22:30 POC Glucose 271 H Discharge Activity: Return to Normal Activity Call your doctor if you observe: Fever of 101 or Higher, Inability to urinate, Shortness of breath, Dizziness, Fainting spells, Chest pain, Calf discomfort Home Medications: Medications to take at Discharge Aspirin [Aspir 81] 81 mg PO DAILY 05/07/19 Sertraline HCl 100 mg PO DAILY 05/07/19 Potassium Chloride [K-Dur] 20 meq PO DAILYCM #30 tab 05/14/19 Nateglinide 1 tab PO TID 07/22/19 Carvedilol [Coreg (Beta Rose Marie)] 3.125 mg PO BID #60 tab 07/24/19 Torsemide 40 mg PO DAILY #60 tab 07/24/19 Fluconazole [Diflucan] 200 mg PO Q48H #3 tab 08/10/19 Insulin Glargine [Lantus SoloStar Pen] 15 units SUBCUT QHS #5 pen 08/10/19 Insulin Glargine [Lantus SoloStar Pen] 26 units SUBCUT QAM #8 pen 08/10/19 Insulin Lispro [Humalog KwikPen] 10 unit SUBCUT TIDAC #9 insuln.pen 08/10/19 Magnesium Oxide [Mag-Ox 400] 400 mg PO DAILYCM #30 tab 08/10/19 Following Prescrptions Were Given to Patient: Fluconazole [Diflucan] 200 mg PO Q48H #3 tab Transmission Status: Received by [facility] Insulin Lispro [Humalog KwikPen] 10 unit SUBCUT TIDAC #9 insuln.pen Transmission Status: Received by [facility] Insulin Glargine [Lantus SoloStar Pen] 26 units SUBCUT QAM #8 pen Transmission Status: Received by [facility] Insulin Glargine [Lantus SoloStar Pen] 15 units SUBCUT QHS #5 pen Transmission Status: Received by [facility] Magnesium Oxide [Mag-Ox 400] 400 mg PO DAILYCM #30 tab Transmission Status: Received by [facility] Primary Care Physician: Care Physician,No Primary [Primary Care Provider] - Please Follow Up With: Philipp Ybarra MD When: 1-2 weeks Patient Instructions: Weight Management: Healthy Eating, MyPlate Worksheet: 1,800 Calories Disposition: Home with Home Health Minutes spent on discharge:: 30 Patient Condition:: Stable Medical Necessity - Tobacco Use Smoking Status: Never smoker Tobacco Use: Non-smoker Meaningful Use Info Meaningful Use Diagnoses (Choose all that apply): CHF - CHF FORTINO/ARB ordered at discharge?: No Reason FORITNO/ARB not ordered?: Worsening renal dysfunctn Documented LVEF (%): 20 Code Visit OBSV E&M: [id number] Observation care discharge
--- NOTE | 2019-08-10 18:25 | NURSING ---
Discharge teaching completed. Patient voiced understanding of same. Pulse ox 89% on room air at discharge. Encouraged patient to wear her oxygen, but she refused. States that she will put it on when she gets home. RN attempted to contact Ambar from [facility] without success. Informed patient's friend that she was discharged with same. Patient aware to attempt to contact for oxygen setup at home. Patient agrees to same.
== END 2019-08-10 16:52 | disposition home health service (06) ==
LOC: ED 02:47 → PCU 05:51
PROVIDERS: Emergency Medicine; Admitting Provider Hospitalist; Emergency Provider Emergency Medicine; Visit Provider Internal Medicine
DX: L30.4 Erythema intertrigo (principal); I50.23 Acute on chronic systolic (congestive) heart failure; N18.3 Chronic kidney disease, stage 3 (moderate); I13.0 Hypertensive heart and chronic kidney disease with heart failure and stage 1 through stage 4 chronic kidney disease, or unspecified chronic kidney disease; E11.22 Type 2 diabetes mellitus with diabetic chronic kidney disease; I42.9 Cardiomyopathy, unspecified; I25.5 Ischemic cardiomyopathy; F32.9 Major depressive disorder, single episode, unspecified; E11.65 Type 2 diabetes mellitus with hyperglycemia; E87.1 Hypo-osmolality and hyponatremia; R30.0 Dysuria; E66.01 Morbid (severe) obesity due to excess calories; Z95.810 Presence of automatic (implantable) cardiac defibrillator; Z79.899 Other long term (current) drug therapy; Z79.4 Long term (current) use of insulin; Z79.82 Long term (current) use of aspirin; Z68.42 Body mass index [BMI] 45.0-49.9, adult; Z71.3 Dietary counseling and surveillance
CPT/HCPCS: 36415; 71045; 80048; 80053; 81001; 82962; 83036; 83735; 83880; 84484; 85025; 85610; 93005; 96372; 96374; 96375; 96376; 97162; 97166; 97530; 97535; 97802; 99218; 99285; A4216; G0378; J1940; J2405

== ENCOUNTER 2019-08-29 16:34 | Outpatient (RCR) | payer MEDICARE, SELFPAY ==
[2019-08-08 03:25] VITALS: BMI 46.3
[2019-08-29 17:17] LABS: ALB/GLOB Ratio 0.8 RATIO (0.9-2.4); AST(SGOT) 29 U/L (15-37); Alanine Aminotransfer ALT/SGPT 30 U/L (13-56); Albumin, Serum 2.9 g/dL (3.2-5.0); Alkaline Phosphatase 183 U/L (45-117); BUN 46 mg/dL (7-18); BUN/Creat Ratio 24.6 RATIO (10-20); Calcium,Total 9.3 mg/dL (8.5-10.1); Chloride 95 mmol/L (98-107); Creatinine, Serum 1.87 mg/dL (0.55-1.02); EST Glomerular Filtration Rate 28 mL/min (>60); Est Glom Filt Rate - Afr Amer 34 mL/min (>60); Globulin 3.7 g/dL (2.2-4.2); Glucose 378 mg/dL (74-106); Potassium 5.1 mmol/L (3.5-5.1); Protein, Total 6.6 g/dL (6.4-8.2); Sodium Level 133 mmol/L (136-145)
[2019-08-29 17:18] LABS: Anion Gap 9 (5-15)
== END 2019-09-13 23:59 ==
LOC: LABSPEC 16:34
DX: I50.32 Chronic diastolic (congestive) heart failure (principal)
CPT/HCPCS: 80053

== ENCOUNTER 2019-09-13 05:13 | Observation (INO) | payer MEDICARE, SELFPAY ==
[2019-09-06 15:42] VITALS: BMI 49.6
[2019-09-13 05:15] VITALS: BP 112/52; PULSE 64; RESP 18; TEMP 36.4; O2SAT 93; BMI 48.2
[2019-09-13 05:31] LABS: Bedside Glucose 88 mg/dL (70-110)
--- NOTE | 2019-09-13 06:05 | RAD_ITS ---
STUDY: X-RAY CHEST REASON FOR EXAM: Female, 68 years old. TECHNIQUE: PA and lateral views of the chest. COMPARISON: 08/08/2019. FINDINGS: There is a left-sided pacemaker in place, stable. The lungs are underexpanded with vascular crowding, cannot exclude mild vascular congestion. Otherwise lung bear are clear. There is no demonstrated pleural abnormality. There is borderline cardiomegaly. Normal mediastinum and madan. There is atherosclerotic calcification of the aortic arch with tortuosity. There is demineralization of the osseous structures. There is degenerative osteoarthritis of the bilateral shoulders and spine. There is no demonstrated abnormality of the visualized soft tissue structures of the upper abdomen. RAD/Chest PA and Lateral IMPRESSION: Decreased inspiratory effort with vascular crowding, cannot exclude mild vascular congestion, clinical correlation recommended. Electronically Signed: Gardenia Maldonado MD at 6:42 EDT , Service support ,
--- NOTE | 2019-09-13 06:09 | ED.VIS.GEN ---
History of Present Illness Chief Complaint: Hypoglycemia Detail of Chief Complaint: sweaty, shaky Informant: Patient Onset: Hours - 1 Context: Sudden Onset - woke her up Location: all over Current Severity: gone Maximum Severity: Severe Worsened by: nothing Relieved by: oral glucose Associated Symptoms: malaise/generally weak Narrative: Apparently this is the third episode of similar symptoms that the patient has had in the last 1 to 2 days. Paramedics responded yesterday to her having a similar episode of these symptoms which were confirmed to be associated with hypoglycemia, and they went away after paramedics gave her oral glucose. She felt fine until this morning when she woke up in the middle the night all of a sudden sweaty and shaky. She called paramedics again they checked her blood sugar it was low, they gave her oral glucose which resulted in resolution of her symptoms. Now she is in the 70s. She feels better but just a little malaised. She has had a cough recently but no other symptoms or illnesses. She denies dyspnea, chest pain, palpitations, nausea, vomiting, abdominal pain, urinary symptoms, abnormal bowel movements. She states she has been eating normally and taking her insulin as she always does, she has had no dosage changes recently, she took her long-acting last night before she went to bed as she usually does and does not think she accidentally overdosed. She ate dinner without any difficulty and had a good meal with her short acting insulin along with it. - Past Medical History (1) IDDM (insulin dependent diabetes mellitus) Status: Chronic (2) Non-ischemic cardiomyopathy Status: Chronic (3) Essential (primary) hypertension Status: Chronic (4) History of implantable cardiac defibrillator (ICD) Status: Chronic Past Medical History - Allergies and Home Meds Allergies/Adverse Reactions: Allergies No Known Allergies Allergy (Verified 09/13/19 05:15) Primary Care Physician: [facility] Doctor,Out of [NON-STAFF] - Surgical History: - - ICD Placement Lives: Alone Smoking Status: Never smoker - Family History Maternal Family History: Reports: Dementia, - Paternal Family History: Reports: Cancer Review of Systems General: Reports: Malaise - Generalized weakness, Sweats. Denies: Chills, Fever Eyes: Denies: Visual changes - bilaterally, Diplopia ENT: Denies: Rhinorrhea, Sore throat Cardiovascular: Denies: Chest pain, Palpitations Respiratory: Reports: Cough. Denies: Dyspnea, Sputum, Dyspnea on exertion Gastrointestinal: Denies: Abdominal pain, Nausea, Vomiting, Diarrhea, Melena, Hematochezia Genitourinary: Denies: Dysuria, Hematuria, Frequency Musculoskeletal: Denies: Neck pain, Back pain, Swelling, Extremity Pain Skin: Denies: Rash, Wounds Neurological: Denies: Headache, Weakness, Numbness Physical Exam Vital Signs/Narrative: Vital Signs Temp Pulse Resp BP Pulse Ox 09/13/19 05:15 97.5 F L 64 18 112/52 L 93 Inital Vital Signs reviewed: Yes General: Well nourished, Well developed, Obese, No Acute Distress Head: Normocephalic, Atraumatic Eyes: Perrl, EOMI ENT: Moist mucous membranes, No rhinorrhea. Negative for: Sinus tenderness Neck: Supple, Nontender, No lymphadenopathy, No JVD Cardiovascular: Regular rate, Regular rhythm, No murmurs Respiratory: No distress, CTA bilaterally, Chest nontender Abdomen: Soft, Nontender, Nondistended, Normal bowel sounds Back: Nontender, Normal Inspection Extremities: Nontender, No edema Skin: Normal color, No rash, No Trauma Neurological: Alert, Oriented x3, Cranial nerves II-XII grossly intact, Normal Strength, Normal Sensation Psychological: Normal affect, Normal Mood Diagnostic/Tx/Re-eval Impressions Chest X-Ray 09/13/19 06:05 IMPRESSION: Decreased inspiratory effort with vascular crowding, cannot exclude mild vascular congestion, clinical correlation recommended. Electronically Signed: Gardenia Maldonado MD at 6:42 EDT , Service support , 09/13/19 06:05 Chest PA and Lateral [RAD] Stat Laboratory Results 09/13/19 09/13/19 09/13/19 05:23 06:15 06:15 WBC 9.4 RBC 4.65 Hgb 13.1 Hct 41.1 MCV 88.4 MCH 28.2 MCHC 31.9 L RDW Std Deviation 55.7 H RDW Coeff of Rahel 17.4 H Plt Count 148 L MPV 12.0 Immature Gran % (Auto) 0.600 Neut % (Auto) 84.3 H Lymph % (Auto) 7.1 L Gillespie % (Auto) 6.9 Eos % (Auto) 0.8 Baso % (Auto) 0.3 Absolute Neuts (auto) 8.0 H Absolute Lymphs (auto) 0.67 L Nucleated RBC % 0 Differential Comment SCANNED Sodium 141 Potassium 4.5 Chloride 106 Carbon Dioxide 31.0 Anion Gap 4 L BUN 27 H Creatinine 1.44 H Estim Creat Clear Calc 28.75 Est GFR (MDRD) Af Amer 46 L Est GFR (MDRD) Non-Af 38 L BUN/Creatinine Ratio 18.8 Glucose 90 Calcium 8.5 Troponin I < 0.015 Urine Color Urine Clarity Urine pH Ur Specific [place] Urine Protein Urine Glucose (UA) Urine Ketones Urine Occult Blood Urine Nitrite Urine Bilirubin Urine Urobilinogen Ur Leukocyte Esterase Urine RBC Urine WBC Ur Squamous Epith Cells Urine Bacteria Urine Mucus POC Glucose 88 09/13/19 06:20 WBC RBC Hgb Hct MCV MCH MCHC RDW Std Deviation RDW Coeff of Rahel Plt Count MPV Immature Gran % (Auto) Neut % (Auto) Lymph % (Auto) Gillespie % (Auto) Eos % (Auto) Baso % (Auto) Absolute Neuts (auto) Absolute Lymphs (auto) Nucleated RBC % Differential Comment Sodium Potassium Chloride Carbon Dioxide Anion Gap BUN Creatinine Estim Creat Clear Calc Est GFR (MDRD) Af Amer Est GFR (MDRD) Non-Af BUN/Creatinine Ratio Glucose Calcium Troponin I Urine Color Yellow Urine Clarity Sl. Cloudy Urine pH 5.0 Ur Specific [place] 1.015 Urine Protein 30 H Urine Glucose (UA) Normal Urine Ketones Negative Urine Occult Blood 10 H Urine Nitrite Positive H Urine Bilirubin Negative Urine Urobilinogen Normal Ur Leukocyte Esterase 500 H Urine RBC 0 SEEN Urine WBC 50-100 SEEN Ur Squamous Epith Cells 0 SEEN Urine Bacteria 3+ Urine Mucus 0 SEEN POC Glucose - Medical Decision Making Work-up shows what appears to be a strong urinary tract infection with significant pyuria, she has a bit of a leftward shift without bands, but her total white blood count is within normal range at 9.4. Chronic renal insufficiency is actually improved today. The rest of her work-up is unremarkable including chest x-ray which shows chronic vascular congestion-related changes. Her lungs are clear and she is not hypoxic. Patient states she feels very weak and prefers to stay in the hospital for this. IV Rocephin given and urine culture sent. Clinically not septic. ED Disposition - Plan for ED Patient: Disposition: Acute Care Hospital [facility] Diagnosis: UTI (urinary tract infection), Hypoglycemia, IDDM (insulin dependent diabetes mellitus) Referrals: [facility] Doctor,Out of [NON-STAFF] -
[2019-09-13 06:23] LABS: Absolute Lymphocyte Count 0.67 X10^3/uL (0.83-4.51); Basophil# 0.03 X10^3/uL; Basophil% 0.3 % (0-1); Eosinophil# 0.08 X10^3/uL; Eosinophils% 0.8 % (0-5); Hematocrit 41.1 % (37-47); Hemoglobin 13.1 g/dL (12.0-15.0); Lymphocyte # 0.67 X10^3/ul (4.0); Lymphocyte % 7.1 % (19-41); Mean Corp Hgb Conc 31.9 g/dL (32-36); Mean Corpuscular Hgb 28.2 pg (27.0-32.0); Mean Corpuscular Volume 88.4 fL (81-99); Monocyte# 0.65 X10^3/uL; Monocyte% 6.9 % (0-10); NRBC Flagged by Analyzer 0 % (0-5); Neutrophil # 7.95 X10^3/uL (2.7-7.7); Neutrophil % 84.3 % (47-70); POSITIVE COUNT YES; Platelet Count 148 K/mm3 (150-450); RBC Distribution Width CV 17.4 % (11.6-14.6); RBC Distribution Width SD 55.7 fl (35.1-43.9); Red Blood Count 4.65 M/mm3 (4.2-5.4); White Blood Count 9.4 K/mm3 (4.4-11.0)
[2019-09-13 06:23] LABS: Mucous, Urine 0 SEEN /hpf (<or=2+); Red Blood Cells-Urine 0 SEEN /hpf (0-5); Squamous Epithelial Cells - UA 0 SEEN /hpf (5-10)
[2019-09-13 06:26] LABS: Differential Indicated SCAN CRITERIA MET
[2019-09-13 06:29] LABS: Color, Urine Yellow (Yellow); Glucose, Dipstick Normal (Normal); Ketone-Dipstick Negative (Negative); Leukocyte Esterase-Dipstick 500 /ul (Negative); Nitrite-Dipstick Positive (Negative); Occult Blood-Urine 10 /ul (Negative); Protein-Dipstick 30 mg/dl (Negative); Specific Gravity, Urine 1.015 (1.002-1.030); Urine Bilirubin Dipstick Negative (Negative); Urine Clarity Sl. Cloudy (Clear); Urine Urobilinogen Normal (Normal)
[2019-09-13 06:45] LABS: Bacteria 3+ /hpf (None Seen); White Blood Cells 50-100 SEEN /hpf (0-5)
[2019-09-13 06:55] LABS: Anion Gap 4 (5-15); BUN 27 mg/dL (7-18); BUN/Creat Ratio 18.8 RATIO (10-20); Calcium,Total 8.5 mg/dL (8.5-10.1); Chloride 106 mmol/L (98-107); Creatinine, Serum 1.44 mg/dL (0.55-1.02); EST Glomerular Filtration Rate 38 mL/min (>60); Est Glom Filt Rate - Afr Amer 46 mL/min (>60); Estimated Creatinine Clearance 28.75 ml/min; Glucose 90 mg/dL (74-106); Potassium 4.5 mmol/L (3.5-5.1); Sodium Level 141 mmol/L (136-145)
[2019-09-13 06:59] LABS: Differential Comment SCANNED
--- NOTE | 2019-09-13 07:42 | NURSING ---
MED SURG GENERALIZED WEAKNESS, UTI, RECURRENT HYPOGLYCEMIA TERELETSKY
[2019-09-13] MEDS: Ceftriaxone 1 GM/50 ML BAG IV (07:54)
--- NOTE | 2019-09-13 07:55 | HP.PCM_ITS ---
Problem List (1) Hypoglycemia Status: Acute History of Present Illness Date of Admission: 09/13/19 Chief Complaint: Hypoglycemia The patient is a 68 year old F seen in the emergency room at [facility] after being brought in by squad due to a low blood sugar at her residence. Patient lives by herself, her blood sugar at her home was 61 she was given oral glucose. Home in the emergency room revealed a normal CBC, patient's chemistry profile was remarkable for a creatinine of 1.4 BUN was 27, glucose was 88, and urinalysis indicated a urinary tract infection with 50-100 WBCs and +3 bacteria. Patient was afebrile and she did not complain of any chills or fever. Patient stated that she felt unsafe to go home due to her low sugar, she will be placed in observation status on MedSurg and blood sugars will be monitored, I have decided to keep her off all insulin except for sliding scale insulin for the time being. She will be reevaluated this afternoon. Past Medical History Past Medical History (Chronic Problems): Chronic Problems (Last Reviewed 09/06/19 @ 16:11 by Philipp Ybarra MD) IDDM (insulin dependent diabetes mellitus) (Chronic) Non-ischemic cardiomyopathy (Chronic) Essential (primary) hypertension (Chronic) Acute on chronic systolic CHF (congestive heart failure) (Chronic) History of implantable cardiac defibrillator (ICD) (Chronic) Medical History: Medical History (Last Reviewed 09/06/19 @ 16:11 by Philipp Ybarra MD) Essential (primary) hypertension (Chronic) I10 Acute on chronic systolic CHF (congestive heart failure) (Chronic) I50.23 Depression F32.9 Severe intertrigo Stage III chronic kidney disease N18.3 Type 2 diabetes mellitus E11.9 Allergies No Known Allergies Allergy (Verified 09/13/19 05:15) Home Medications: Ambulatory Orders Medication Instructions Recorded Sertraline HCl 100 mg PO DAILY 05/07/19 Nateglinide 1 tab PO TID 07/22/19 Insulin Glargine [Lantus SoloStar 15 units SUBCUT QHS #5 pen 08/10/19 Pen] Insulin Glargine [Lantus SoloStar 26 units SUBCUT QAM #8 pen 08/10/19 Pen] Insulin Lispro [Humalog KwikPen] 10 unit SUBCUT TIDAC #9 insuln.pen 08/10/19 carvedilol 6.25 mg tablet 6.25 mg PO BID #90 tab 09/06/19 lisinopril 2.5 mg tablet 2.5 mg PO DAILY #90 tab 09/06/19 magnesium oxide 400 mg (241.3 mg 400 mg PO DAILYCM #30 tab 09/06/19 magnesium) tablet torsemide 20 mg tablet 20 mg PO DAILY #60 tab 09/06/19 Surgical History: Surgical History (Last Reviewed 09/06/19 @ 16:11 by Philipp Ybarra MD) History of implantable cardiac defibrillator (ICD) (Chronic) Total knee replacement status Z96.659 Surgical History: - - ICD Placement Psychiatric History: No 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 Lives: Alone Smoking Status: Never smoker Tobacco Use: Non-smoker Alcohol: None Drugs: None - *Family History Maternal History Items: Dementia, - Paternal History Items: Cancer Review of Systems Constitutional: Denies: Anorexia, Chills, Fever, Night Sweats, Malaise, Weakness, Weight Change, Fatigue Eyes: Denies: Cataracts, Conjunctivae Inflammation, Double vision, Drainage, Redness HEENT: Denies: Difficulty Swallowing, Dysphasia, Ear Pain, Eye Pain Cardiovascular: Denies: Chest Pain, Claudication, Chest Pressure, Chest Tightnes s, Edema, Palpitations Respiratory: Denies: Cough, Hemoptysis, Pleuritic Pain, Shortness of Breath, Shortness of breath at rest, Shortness of breath upon exertion Gastrointestinal: Denies: Abdominal Pain, Constipation, Diarrhea, Hematemesis, Hematochezia, Nausea, Melena, Vomiting Genitourinary: Denies: Dysuria, Frequency, Hematuria, Hesitancy, Nocturia, Retention, Urgency Gynecological: Denies: Breast symptoms Musculoskeletal: Denies: Back Pain, Foot Pain, Hand Pain, Joint Pain, Joint stiffness, Joint swelling, Joint Tenderness, Leg Pain Skin: Denies: Dryness, Pruritis, Rash Neurological: Denies: Balance problems, Blurred vision, Double vision, Slurred speech, Difficulty swallowing, Focal weakness, Headaches, Incoordination, Numbness, Tingling Psychiatric: Denies: Anxiety, Depression, Homicidal Ideations, Suicidal Ideations Endocrine: Denies: Change in Body Habitus, Heat/ Cold Intolerance, Polydipsia, Polyuria Hematologic/ Lymphatic: Denies: Adenopathy, Anemia, Easy Bruising, Easy Bleeding, Petechiae, Purpura VTE Information - Inpt Only VTE Present on Admission: No VTE Mechan Device Prophylaxis: None VTE Pharm Prophylaxis ordered?: No Reason prophylaxis not ordered:: Treatment Not Indicated - Patient is in observation status and is not expected to stay overnight Patient Problems: Active and Suspected Problems (Last Reviewed 09/06/19 @ 16:11 by Philipp Ybarra MD) UTI (urinary tract infection) (Acute) Hypoglycemia (Acute) - Physical Exam Vitals/I&O's: Vital Signs Temp Pulse Resp BP Pulse Ox 97.5 F L 64 18 112/52 L 93 09/13/19 05:15 09/13/19 05:15 09/13/19 05:15 09/13/19 05:15 09/13/19 05:15 Oxygen Delivery Method Room Air Weight: 119.5 kg Body Mass Index (BMI) 48.2 Finger Stick Blood Glucose 88 General: Alert, Oriented x3, Cooperative, No apparent distress, Well developed, Well nourished HEENT: Atraumatic, PERRLA, EOMI, Normocephalic Oral: Moist Mucosa Neck: Supple, No JVD, Negative Carotid Bruits, Trachea Midline, Thyroid Normal Size and Texture Lungs: Clear to auscultation, Normal air movement, No rhonchi, No wheeze, No rales Cardiovascular: Regular rate, Regular Rhythm, Normal S1, Normal S2, No murmurs, PMI Normal, No rub noted Abdomen: Bowel Sounds Present, Soft, Non Tender, Non-Distended, Obese, No hernias noted Extremities: No clubbing, No cyanosis, No edema, Capillary Refill Less than 3 Seconds Skin: No rashes, No breakdown Musculoskeletal: No Tenderness to Palpation of Joints or Extremities Neurological: Cranial nerves II-XII grossly intact, Neuro grossly intact, Sensory exam intact to light touch and pain, Coordination normal Psych/Mental Status: Normal Affect, Appropriate, Alert and oriented to time, place, person, mood and affect Laboratory Results 09/13/19 05:23: POC Glucose 88 09/13/19 06:15: WBC 9.4, RBC 4.65, Hgb 13.1, Hct 41.1, MCV 88.4, MCH 28.2, MCHC 31.9 L, RDW Std Deviation 55.7 H, RDW Coeff of Rahel 17.4 H, Plt Count 148 L, MPV 12.0, Immature Gran % (Auto) 0.600, Neut % (Auto) 84.3 H, Lymph % (Auto) 7.1 L, Grady % (Auto) 6.9, Eos % (Auto) 0.8, Baso % (Auto) 0.3, Absolute Neuts (auto) 8.0 H, Absolute Lymphs (auto) 0.67 L, Nucleated RBC % 0, Differential Comment SCANNED 09/13/19 06:15: Sodium 141, Potassium 4.5, Chloride 106, Carbon Dioxide 31.0, Anion Gap 4 L, BUN 27 H, Creatinine 1.44 H, Estim Creat Clear Calc 28.75, Est GFR (MDRD) Af Amer 46 L, Est GFR (MDRD) Non-Af 38 L, BUN/Creatinine Ratio 18.8, Glucose 90, Calcium 8.5, Troponin I < 0.015 09/13/19 06:20: Urine Color Yellow, Urine Clarity Sl. Cloudy, Urine pH 5.0, Ur Specific [place] 1.015, Urine Protein 30 H, Urine Glucose (UA) Normal, Urine Ketones Negative, Urine Occult Blood 10 H, Urine Nitrite Positive H, Urine Bilirubin Negative, Urine Urobilinogen Normal, Ur Leukocyte Esterase 500 H, Urine RBC 0 SEEN, Urine WBC 50-100 SEEN, Ur Squamous Epith Cells 0 SEEN, Urine Bacteria 3+, Urine Mucus 0 SEEN Assessment/Plan All Active Problems (Last Reviewed 09/06/19 @ 16:11 by Philipp Ybarra MD) UTI (urinary tract infection) (Acute) Hypoglycemia (Acute) #1 hypoglycemia-patient will be placed in observation status on MedSurg, blood sugars will be monitored, her home insulin will be held as well as her Starlix. Patient will be reevaluated this afternoon, PT and OT will see the patient #2 acute cystitis-patient received IV Rocephin in the emergency room, she will need a prescription for antibiotics at the time of discharge from the hospital #3 nonischemic cardiomyopathy #4 essential hypertension Code Visit OBSV E&M: [id number] Initial observation care L3
[2019-09-13 07:57] VITALS: BP 126/82; PULSE 63; O2SAT 94
[2019-09-13 08:31] VITALS: BP 119/91; PULSE 65; RESP 16; TEMP 36.4; O2SAT 97; BMI 46.6
--- NOTE | 2019-09-13 10:12 | NURSING ---
home med list [facility], updated and placed on pt chart.
--- NOTE | 2019-09-13 10:20 | CASEMGMT ---
RN CM TRAPEZE PERFORMER CM to room to meet with patient for initial transition planning/care coordination assessment. RN CM introduced self and role at [facility]. Pt voices understanding and consents to assessment at this time. Pt resting in bed in no distress at this time. Pt is A/O at this time and answers all questions appropriately. Care providers, pharmacy, and demographics verified at this time. PCP: Visiting Home Physician through [facility]. PH: [phone] States her physician's name is Anisa. Does not remember her name, stating it starts with a D. Pt states I love having her come to my home. We get along great. I like her a lot. Specialists: Dr Ybarra--Cardiology Preferred Pharmacy: [facility] Retail Insurance: Anonymous You [facility] Prescription Benefit: Yes Living Will/HPOA: does not have LW or HCPOA . has the paperwork at home but has not completed it yet and is interested in talking w/SW. DIETER Dey, made aware. LNOK: Sister. Does not want her listed on demographics at this time. Person to Notify is her friend, Sreekanth, who is very supportive/involved in pt's care. Living Arrangements: Lives alone in an apartment. No stairs. is independent with personal ADL's. Needs assistance with household management tasks. Has Passport services through [facility]. CM is Karen Riggs. Last admission note states discussion about possibly arranging [employer] or Home [employer] Meals. Pt states to this RN HERIBERTO that she is not interested in either one of these services. Her friend, Sreekanth, helps with grocery shopping. Pt states she will be getting an aide through [facility] beginning September 24Tue through Tuesday for 2-3 hours a day. She states I can't wait til she comes out. Transportation: Friend, Sreekanth DME: has the following DME: shower chair, lift chair, rails/grab bars, hand-held shower, walker, rollator, medical alert, nebulizer Pt states no need for further DME at this time. HHC/SNF: No history of SNF. Hx of [facility]--was just discharged from their services 09/10. Pt states feels like she would benefit from having their services again. Call placed to Mine @ [facility] with referral. Awaiting acceptance. Current with CCN. Don from CCN aware pt admitted to [facility]. Pt wishes to return home and states has no concerns with going home at time of discharge. CM to follow for any further discharge planning/needs. Pt voices no further concerns/needs at this time. Advised pt to ask for CM if any further questions/concerns/needs arise. Voices understanding. PLAN: Home w/continuation of CCN, [facility], and possibly addition of HHC. Awaiting acceptance. Josh PARISN RN CM
--- NOTE | 2019-09-13 10:37 | CASEMGMT ---
Pt had let both CM and RN know she wants to complete LW/POA. SW met w/pt, she is having trouble getting a hold of her friend who she would like to make POA. SW explained to pt that if she gets a hold of her friend today to call the SW on the floor and gave her Christel's number. SW explained if she is not able to get a hold of her friend today she can call the SW dept when she is ready to complete the forms and set up a time as an outpt, gave her the number to the SW dept and a copy of the LW/POA forms. Pt states understanding. SW will return should pt want to complete the forms. PARAG Parson
[2019-09-13] MEDS: Carvedilol 6.25 MG Tablet PO (11:37)
[2019-09-13] MEDS: Furosemide 40 MG Tablet PO (11:37)
[2019-09-13] MEDS: Lisinopril 2.5 MG Tablet PO (11:37)
[2019-09-13 12:46] LABS: Bedside Glucose 211 mg/dL (70-110)
[2019-09-13] MEDS: Glucerna Shake 120 ML LIQUID PO (13:58)
--- NOTE | 2019-09-13 14:01 | CHAPLAIN ---
Type of Pastoral Visit _x__ Initial Visit ___ Follow-up Visit ___ On-call Visit ___ General Patient Visit ___ Spiritual Assessment ___ Family Conference ___ Bereavement ___ Rapid Response ___ Code Blue ___ Other (describe below) Pastoral Care Referral From _x__ Patient ___ Family ___ Nurse ___ Physician ___ Bilingual Middle School Teacher ___ Nursing Education Consultant ___ Other (describe below) Sacrament/Intervention _x__ Active listening ___ Anointing ___ Gnosticism ___ Bereavement ___ Communion ___ Mary exploration ___ ___ Life review _x__ Prayer ___ Reconciliation ___ Sacrament of Sick ___ Supportive presence ___ Wedding ___ Other (describe below) Pastoral Comments
[2019-09-13 14:31] VITALS: BP 114/63; PULSE 81; RESP 16; TEMP 36.7; O2SAT 97
--- NOTE | 2019-09-13 14:34 | PCM.DC ---
- Discharge Diagnoses Current Active Problems: Current Active and Chronic Problems (Last Reviewed 09/06/19 @ 16:11 by Philipp Ybarra MD) IDDM (insulin dependent diabetes mellitus) (Chronic) UTI (urinary tract infection) (Acute) Hypoglycemia (Acute) You will use the following diet at home:: Calorie/Carbohydrate Controlled (specify 1200, 1400, etc) - 1800 aida Your food should be the consistency of: Regular Your liquids should be the consistency of: Regular/Thin Discharge Activity: Return to Normal Activity Weight Bearing Status: Full weight bearing - with walker Allergies/Adverse Reactions: Allergies No Known Allergies Allergy (Verified 09/13/19 05:15) Medications to take at Discharge Sertraline HCl 100 mg PO DAILY 05/07/19 Nateglinide 1 tab PO TID 07/22/19 carvedilol 6.25 mg tablet 6.25 mg PO BID #90 tab 09/06/19 lisinopril 2.5 mg tablet 2.5 mg PO DAILY #90 tab 09/06/19 magnesium oxide 400 mg (241.3 mg magnesium) tablet 400 mg PO DAILYCM #30 tab 09/06/19 torsemide 20 mg tablet 20 mg PO DAILY #60 tab 09/06/19 Cephalexin [Keflex] 500 mg PO BID #14 cap 09/13/19 Insulin Glargine [Lantus SoloStar Pen] 15 units SUBCUT DINNER #1 pen 09/13/19 Insulin Glargine [Lantus SoloStar Pen] 15 units SUBCUT QAM #1 pen 09/13/19 The following prescriptions were given: Cephalexin [Keflex] 500 mg PO BID #14 cap Transmission Status: Pending to [facility] Insulin Glargine [Lantus SoloStar Pen] 15 units SUBCUT QAM #1 pen Insulin Glargine [Lantus SoloStar Pen] 15 units SUBCUT DINNER #1 pen Primary Care Physician: Sima Doctor,Out of [NON-STAFF] - Please follow up with your Primary Care Physician in: as scheduled Test Results: Test results from this visit will be discussed in further detail at your follow-up appointment, if applicable.
[2019-09-13 14:45] LABS: Bedside Glucose 241 mg/dL (70-110)
--- NOTE | 2019-09-13 15:49 | DS.PCM_ITS ---
Discharge Date and Diagnosis Date of Admission: 09/13/19 Date of Discharge: 09/13/19 - Primary Discharge Diagnosis #1 hypoglycemia-secondary to insulin administration for type 2 diabetes #2 acute cystitis - gram-negative bacterial #3 nonischemic cardiomyopathy #4 essential hypertension - Secondary Discharge Diagnosis Chronic Problems (Last Reviewed 09/06/19 @ 16:11 by Philipp Ybarra MD) IDDM (insulin dependent diabetes mellitus) (Chronic) Non-ischemic cardiomyopathy (Chronic) Essential (primary) hypertension (Chronic) Acute on chronic systolic CHF (congestive heart failure) (Chronic) History of implantable cardiac defibrillator (ICD) (Chronic) Hospital Course and Treatment Operations: None Procedures: None Summary of Care Provided: The patient is a 68 year old F seen in the emergency room at [facility] after being brought in by squad due to low blood sugar at her residence. Patient has type 2 diabetes. Patient's blood sugar in the emergency room was 88, labs obtained showed the patient to have a urinalysis indicating she had a urinary tract infection. Labs showed the patient to have an elevated creatinine which is baseline for the patient. Patient was given IV Rocephin in the emergency room for her cystitis. Patient was placed in observation status on MedSurg 3, repeat blood sugars were done every 4 hours, her blood sugars trended upward into the 200 range and did not drop again. I felt that the patient could be discharged home, I took her off Humalog insulin and reduced her long-acting insulin dosage. On examination she appeared in good health and spirits. Vital signs as documented. Skin warm and dry and without overt rashes. Neck without JVD. Lungs clear. Heart exam notable for regular rhythm, normal sounds and absence of murmurs, rubs or gallops. Abdomen unremarkable and without evidence of organomegaly, masses, or abdominal aortic enlargement. Extremities nonedematous. Neuro: Cranial nerves II through XII are grossly intact, no focal motor deficits were noted, sensation to light touch and pinprick is intact. Psych: Patient is alert and oriented x3, she does not appear anxious or depressed On 09/13/2019, patient was seen and examined and felt to be in stable condition for discharge home - Physical Exam Vitals/I&O's: Vital Signs Temp Pulse Resp BP Pulse Ox 98.0 F 81 16 114/63 97 09/13/19 14:31 09/13/19 14:31 09/13/19 14:31 09/13/19 14:31 09/13/19 14:31 Oxygen Delivery Method Room Air Weight: 115.621 kg Body Mass Index (BMI) 46.6 Finger Stick Blood Glucose 88 Intake and Output for Last 24 Hours 09/11/19 09/12/19 09/13/19 23:59 23:59 23:59 Intake Total 50 / 50 Output Total 200 / 200 Balance -150 / -150 Laboratory Results 09/13/19 05:23: POC Glucose 88 09/13/19 06:15: WBC 9.4, RBC 4.65, Hgb 13.1, Hct 41.1, MCV 88.4, MCH 28.2, MCHC 31.9 L, RDW Std Deviation 55.7 H, RDW Coeff of Rahel 17.4 H, Plt Count 148 L, MPV 12.0, Immature Gran % (Auto) 0.600, Neut % (Auto) 84.3 H, Lymph % (Auto) 7.1 L, [place] % (Auto) 6.9, Eos % (Auto) 0.8, Baso % (Auto) 0.3, Absolute Neuts (auto) 8.0 H, Absolute Lymphs (auto) 0.67 L, Nucleated RBC % 0, Differential Comment SCANNED 09/13/19 06:15: Sodium 141, Potassium 4.5, Chloride 106, Carbon Dioxide 31.0, Anion Gap 4 L, BUN 27 H, Creatinine 1.44 H, Estim Creat Clear Calc 28.75, Est GFR (MDRD) Af Amer 46 L, Est GFR (MDRD) Non-Af 38 L, BUN/Creatinine Ratio 18.8, Glucose 90, Calcium 8.5, Troponin I < 0.015 09/13/19 06:20: Urine Color Yellow, Urine Clarity Sl. Cloudy, Urine pH 5.0, Ur Specific [place] 1.015, Urine Protein 30 H, Urine Glucose (UA) Normal, Urine Ketones Negative, Urine Occult Blood 10 H, Urine Nitrite Positive H, Urine Bilirubin Negative, Urine Urobilinogen Normal, Ur Leukocyte Esterase 500 H, Urine RBC 0 SEEN, Urine WBC 50-100 SEEN, Ur Squamous Epith Cells 0 SEEN, Urine Bacteria 3+, Urine Mucus 0 SEEN 09/13/19 12:39: POC Glucose 211 H 09/13/19 14:38: POC Glucose 241 H Discharge Activity: Return to Normal Activity Weight Bearing Status: Full weight bearing - with walker Home Medications: Medications to take at Discharge Sertraline HCl 100 mg PO DAILY 05/07/19 Nateglinide 1 tab PO TID 07/22/19 carvedilol 6.25 mg tablet 6.25 mg PO BID #90 tab 09/06/19 lisinopril 2.5 mg tablet 2.5 mg PO DAILY #90 tab 09/06/19 magnesium oxide 400 mg (241.3 mg magnesium) tablet 400 mg PO DAILYCM #30 tab 09/06/19 torsemide 20 mg tablet 20 mg PO DAILY #60 tab 09/06/19 Cephalexin [Keflex] 500 mg PO BID #14 cap 09/13/19 Insulin Glargine [Lantus SoloStar Pen] 15 units SUBCUT DINNER #1 pen 09/13/19 Insulin Glargine [Lantus SoloStar Pen] 15 units SUBCUT QAM #1 pen 09/13/19 Following Prescrptions Were Given to Patient: Cephalexin [Keflex] 500 mg PO BID #14 cap Transmission Status: Received by [facility] Insulin Glargine [Lantus SoloStar Pen] 15 units SUBCUT QAM #1 pen Insulin Glargine [Lantus SoloStar Pen] 15 units SUBCUT DINNER #1 pen Primary Care Physician: Sima Doctor,Out of [NON-STAFF] - Please follow up with your Primary Care Physician in: as scheduled Disposition: Home Minutes spent on discharge:: 30 Patient Condition:: Stable Medical Necessity - Tobacco Use Smoking Status: Never smoker Tobacco Use: Non-smoker Meaningful Use Info Meaningful Use Diagnoses (Choose all that apply): None applicable Code Visit OBSV E&M: 27228 Observ/hosp same date L3
== END 2019-09-13 15:47 | disposition home or self-care (01) ==
LOC: ED 07:21 → MS3 07:57
PROVIDERS: Admitting Provider Internal Medicine; Emergency Provider Emergency Medicine; Visit Provider Internal Medicine
DX: E11.649 Type 2 diabetes mellitus with hypoglycemia without coma (principal); T38.3X5A Adverse effect of insulin and oral hypoglycemic [antidiabetic] drugs, initial encounter; I13.0 Hypertensive heart and chronic kidney disease with heart failure and stage 1 through stage 4 chronic kidney disease, or unspecified chronic kidney disease; I50.23 Acute on chronic systolic (congestive) heart failure; N18.3 Chronic kidney disease, stage 3 (moderate); E11.22 Type 2 diabetes mellitus with diabetic chronic kidney disease; I42.8 Other cardiomyopathies; N30.00 Acute cystitis without hematuria; B96.89 Other specified bacterial agents as the cause of diseases classified elsewhere; F32.9 Major depressive disorder, single episode, unspecified; Z95.810 Presence of automatic (implantable) cardiac defibrillator; Z79.899 Other long term (current) drug therapy; Z79.4 Long term (current) use of insulin
CPT/HCPCS: 71046; 80048; 81001; 82962; 84484; 85025; 87077; 87086; 87088; 87186; 96365; 99218; 99285; J7050; A4216; G0378

== ENCOUNTER → 2019-09-20 14:48 | Outpatient (CLI) | payer MEDICARE, SELFPAY ==
[2019-09-13 08:31] VITALS: BMI 46.6
[2019-09-20 15:41] LABS: Absolute Lymphocyte Count 0.79 X10^3/uL (0.83-4.51); Absolute Neutrophil Count 5.3 X10^3/uL (2.0-7.7); Basophil# 0.02 X10^3/uL; Basophil% 0.3 % (0-1); Eosinophil# 0.11 X10^3/uL; Eosinophils% 1.6 % (0-5); Hematocrit 40.4 % (37-47); Hemoglobin 12.4 g/dL (12.0-15.0); Lymphocyte # 0.79 X10^3/ul (4.0); Lymphocyte % 11.4 % (19-41); Mean Corp Hgb Conc 30.7 g/dL (32-36); Mean Corpuscular Volume 91.2 fL (81-99); Mean Platelet Vol. 11.9 fl (6.2-12.0); Monocyte# 0.69 X10^3/uL; Monocyte% 9.9 % (0-10); NRBC Flagged by Analyzer 0 % (0-5); Neutrophil # 5.29 X10^3/uL (2.7-7.7); Neutrophil % 76.2 % (47-70); Platelet Count 157 K/mm3 (150-450); RBC Distribution Width CV 18.1 % (11.6-14.6); Red Blood Count 4.43 M/mm3 (4.2-5.4); White Blood Count 6.9 K/mm3 (4.4-11.0)
[2019-09-20 15:59] LABS: Anion Gap 8 (5-15); BUN 33 mg/dL (7-18); BUN/Creat Ratio 22.8 RATIO (10-20); Calcium,Total 8.4 mg/dL (8.5-10.1); Chloride 100 mmol/L (98-107); Creatinine, Serum 1.45 mg/dL (0.55-1.02); EST Glomerular Filtration Rate 38 mL/min (>60); Est Glom Filt Rate - Afr Amer 46 mL/min (>60); Glucose 311 mg/dL (74-106); Sodium Level 140 mmol/L (136-145)
== END ==
PROVIDERS: Referring Provider Internal Medicine Cardiovascular Disease; Visit Provider Internal Medicine Cardiovascular Disease
DX: I42.8 Other cardiomyopathies (principal)
CPT/HCPCS: 80048; 85025

== ENCOUNTER 2019-09-20 14:52 | Outpatient (RCR) | payer MEDICARE, SELFPAY ==
[2019-09-13 08:31] VITALS: BMI 46.6
== END 2019-09-20 18:00 | disposition home or self-care (01) ==
LOC: HHLAB 14:52
DX: I50.32 Chronic diastolic (congestive) heart failure (principal)

== ENCOUNTER 2019-10-14 15:34 | Observation (INO) | payer MEDICARE, SELFPAY ==
[2019-09-13 08:31] VITALS: BMI 46.6
[2019-10-14] VITALS (8 sets, daily range): BP systolic 130–156; BP diastolic 83–105; PULSE 76–88; RESP 17–18; TEMP 36.7–37.2; O2SAT 95–97; BMI 48.9; BMI 47.0
--- NOTE | 2019-10-14 15:54 | ED.DCSUM_ITS ---
- ER Visit Summary Date of Service: 10/14/19 Chief Complaint: Rectal bleeding History of Present Illness: The patient is a 68 F history of CHF, cardiomyopathy, type 2 diabetes and renal insufficiency. Patient states that around 230 today she had rectal bleeding. Denies any prior history. Denies any straining at stools. States it was bright red blood. No black stool. No hematemesis. No melena. She denies being on any blood thinners. States that filled the toilet bowl. Physical Examination: Older female no acute distress. Vital signs are stable she is afebrile she does not look septic or toxic. H EENT exam unremarkable. Lungs clear to auscultation. Heart regular rhythm no murmur. Abdomen morbidly obese but soft nontender normal bowel sounds no peritoneal signs. Patient moving all 4 extremities. Neurovascular intact. No edema. Rectal exam externally there were no masses or external hemorrhoids. On rectal exam she had normal tone no mass was nontender there was a small amount of blood. It appeared to be maroon colored. No stool. Neurologically she is awake and alert with no focal motor deficits. Test Results: BC normal white count 6. Hemoglobin 13. Electrolytes unremarkable. Glucose elevated at 380 creatinine 1.52 history of renal insufficiency. INR normal 1. Emergency Department Course and Treatment: Early female not on any blood thinners with rectal bleeding. No prior history. Denies any prior colonoscopy. Treatment Plan: Repeat exam patient is doing well. She is had no further bleeding. I spoke to the hospitalist he will be also speak to the surgeon on- call and she will be admitted for further evaluation. Disposition: Observation Impression: Rectal bleeding of uncertain etiology This note was generated with [employer] dictation software. It may contain incorrect words, spelling, and punctuation that were not noted in review of the chart prior to signing ED Disposition - Plan for ED Patient: Referrals: [facility] Doctor,Out of [NON-STAFF] -
[2019-10-14 16:08] LABS: Absolute Lymphocyte Count 0.71 X10^3/uL (0.83-4.51); Absolute Neutrophil Count 5.3 X10^3/uL (2.0-7.7); Basophil# 0.01 X10^3/uL; Basophil% 0.1 % (0-1); Eosinophil# 0.21 X10^3/uL; Hematocrit 43.5 % (37-47); Hemoglobin 13.7 g/dL (12.0-15.0); Lymphocyte # 0.71 X10^3/ul (4.0); Lymphocyte % 10.3 % (19-41); Mean Corp Hgb Conc 31.5 g/dL (32-36); Mean Corpuscular Hgb 28.4 pg (27.0-32.0); Mean Corpuscular Volume 90.1 fL (81-99); Mean Platelet Vol. 11.5 fl (6.2-12.0); Monocyte# 0.63 X10^3/uL; Monocyte% 9.1 % (0-10); NRBC Flagged by Analyzer 0 % (0-5); Neutrophil # 5.31 X10^3/uL (2.7-7.7); Neutrophil % 76.9 % (47-70); Platelet Count 164 K/mm3 (150-450); RBC Distribution Width SD 56.4 fl (35.1-43.9); Red Blood Count 4.83 M/mm3 (4.2-5.4); White Blood Count 6.9 K/mm3 (4.4-11.0)
[2019-10-14 16:18] LABS: Anion Gap 5 (5-15); BUN 18 mg/dL (7-18); BUN/Creat Ratio 11.8 RATIO (10-20); Chloride 109 mmol/L (98-107); Creatinine, Serum 1.52 mg/dL (0.55-1.02); EST Glomerular Filtration Rate 36 mL/min (>60); Est Glom Filt Rate - Afr Amer 43 mL/min (>60); Estimated Creatinine Clearance 27.24 ml/min; Glucose 386 mg/dL (74-106); International Normalized Ratio 1.2; Potassium 3.9 mmol/L (3.5-5.1); Prothrombin Time (Protime)PT. 14.6 SECONDS (11.7-14.9); Sodium Level 141 mmol/L (136-145)
--- NOTE | 2019-10-14 18:03 | HP.PCM_ITS ---
Problem List (1) IDDM (insulin dependent diabetes mellitus) Status: Chronic (2) Non-ischemic cardiomyopathy Status: Chronic (3) Essential (primary) hypertension Status: Chronic (4) History of implantable cardiac defibrillator (ICD) Status: Chronic History of Present Illness Date of Admission: 10/14/19 Chief Complaint: Rectal bleeding. The patient is a 68 year old F patient with past medical history as mentioned above presented to the emergency room because of rectal bleeding. Patient mentioned that around 2 PM today, she had rectal bleeding, bright red blood, large amount of blood per rectum with blood clots. This happened just one time. She never had a history of GI bleed in the past. She never had colonoscopy done in her life. She denies history of hemorrhoids. She mentioned that she was slightly dizzy but resolved. She denied chest pain or shortness of breath. She is not taking any blood thinners. She had a history of nonischemic cardiomyopathy status post ICD which has been stable on beta-blockers, FORTINO inhibitors and diuretics. She has history of uncontrolled type 1 diabetes mellitus has been on insulin and hemoglobin A1c was 12.2% on July,. She has history of hypertension which has been under control with Coreg and lisinopril. In the emergency department, her vital signs are stable. Her routine blood work was remarkable for creatinine of 1.52 which is chronic, otherwise normal. Her glucose was 386 without evidence of DKA. She is being admitted for GI bleed for evaluation. Past Medical History Past Medical History (Chronic Problems): Chronic Problems (Last Reviewed 09/06/19 @ 16:11 by Philipp Ybarra MD) IDDM (insulin dependent diabetes mellitus) (Chronic) Non-ischemic cardiomyopathy (Chronic) Essential (primary) hypertension (Chronic) Acute on chronic systolic CHF (congestive heart failure) (Chronic) History of implantable cardiac defibrillator (ICD) (Chronic) Medical History: Medical History (Last Reviewed 09/06/19 @ 16:11 by Philipp Ybarra MD) Essential (primary) hypertension (Chronic) I10 Acute on chronic systolic CHF (congestive heart failure) (Chronic) I50.23 Depression F32.9 Severe intertrigo Stage III chronic kidney disease N18.3 Type 2 diabetes mellitus E11.9 Allergies No Known Allergies Allergy (Verified 10/14/19 15:36) Home Medications: Ambulatory Orders Medication Instructions Recorded Sertraline HCl 100 mg PO DAILY 05/07/19 Nateglinide 1 tab PO TID 07/22/19 carvedilol 6.25 mg tablet 6.25 mg PO BID #90 tab 09/06/19 lisinopril 2.5 mg tablet 2.5 mg PO DAILY #90 tab 09/06/19 magnesium oxide 400 mg (241.3 mg 400 mg PO DAILYCM #30 tab 09/06/19 magnesium) tablet torsemide 20 mg tablet 20 mg PO DAILY #60 tab 09/06/19 Insulin Glargine [Lantus SoloStar 15 units SUBCUT DINNER #1 pen 09/13/19 Pen] Insulin Glargine [Lantus SoloStar 15 units SUBCUT QAM #1 pen 09/13/19 Pen] Surgical History: Surgical History (Last Reviewed 09/06/19 @ 16:11 by Philipp Ybarra MD) History of implantable cardiac defibrillator (ICD) (Chronic) Total knee replacement status Z96.659 Surgical History: - - ICD Placement Psychiatric History: No 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: No pertinent AXLE TURNER history Lives: Alone Smoking Status: Never smoker Alcohol: None Drugs: None - *Family History Maternal History Items: Dementia, - Paternal History Items: Cancer Review of Systems Constitutional: Denies: Anorexia, Chills, Fever, Weakness Eyes: Denies: Blurred vision, Double vision, Drainage, Redness HEENT: Denies: Difficulty Hearing, Ear Pain, Eye Pain, Nasal Congestion, Sore Throat Cardiovascular: Denies: Chest Pain, Chest Tightness, Heaviness, Palpitations, Syncope Respiratory: Denies: Cough, Hemoptysis, Pleuritic Pain, Shortness of Breath, Sputum production, Wheezing Gastrointestinal: Reports: Hematochezia. Denies: Abdominal Pain, Constipation, Diarrhea, Nausea, Vomiting Genitourinary: Denies: Dysuria, Frequency, Hematuria Musculoskeletal: Denies: Arm Pain, Back Pain, Foot Pain Skin: Denies: Dryness, Rash Neurological: Denies: Balance problems, Blurred vision, Double vision, Change in Speech, Focal weakness, Headaches, Incoordination Psychiatric: Denies: Anxiety, Depression Endocrine: Denies: Change in Body Habitus, Polydipsia, Polyuria VTE Information - Inpt Only VTE Present on Admission: No VTE Mechan Device Prophylaxis: SCD's VTE Pharm Prophylaxis ordered?: No - Physical Exam Vitals/I&O's: Vital Signs Temp Pulse Resp BP Pulse Ox 98.0 F 88 17 140/84 H 97 10/14/19 15:38 10/14/19 17:57 10/14/19 17:57 10/14/19 17:57 10/14/19 17:57 Oxygen Delivery Method Room Air Weight: 267 lb 6.731 oz Body Mass Index (BMI) 48.9 Finger Stick Blood Glucose 88 General: Alert, Oriented x3, Cooperative, No apparent distress HEENT: Atraumatic, PERRLA, EOMI, Normocephalic Oral: Moist Mucosa, No Gingival or Mucosal Lesions/ Ulcerations Neck: Supple, No JVD, Negative Carotid Bruits, Trachea Midline, Thyroid Normal S ize and Texture Lungs: Clear to auscultation, Normal air movement, No rhonchi, No wheeze, No rales, Diminished Cardiovascular: Regular rate, Regular Rhythm, Normal S1, Normal S2, PMI Normal Abdomen: Bowel Sounds Present, Soft, Non Tender, Non-Distended, No Hepato- splenomegaly, Obese Extremities: No clubbing, No cyanosis, No edema Skin: No rashes, No breakdown Lymphatic: No Cervical, Supraclavicular, or Inguinal Adenopathy Neurological: Cranial nerves II-XII grossly intact, Motor Exam 5/5 strength throughout Psych/Mental Status: Normal Affect, Appropriate, Alert and oriented to time, place, person, mood and affect Laboratory Results 10/14/19 15:40: WBC 6.9, RBC 4.83, Hgb 13.7, Hct 43.5, MCV 90.1, MCH 28.4, MCHC 31.5 L, RDW Std Deviation 56.4 H, RDW Coeff of Rahel 17.0 H, Plt Count 164, MPV 11.5, Immature Gran % (Auto) 0.600, Neut % (Auto) 76.9 H, Lymph % (Auto) 10.3 L, [place] % (Auto) 9.1, Eos % (Auto) 3.0, Baso % (Auto) 0.1, Absolute Neuts (auto) 5.3, Absolute Lymphs (auto) 0.71 L, Nucleated RBC % 0 10/14/19 15:40: PT 14.6, INR 1.2 10/14/19 15:40: Sodium 141, Potassium 3.9, Chloride 109 H, Carbon Dioxide 27.0, Anion Gap 5, BUN 18, Creatinine 1.52 H, Estim Creat Clear Calc 27.24, Est GFR (MDRD) Af Amer 43 L, Est GFR (MDRD) Non-Af 36 L, BUN/Creatinine Ratio 11.8, Glucose 386 H, Calcium 9.0 10/14/19 15:40: Blood Type O POSITIVE, Antibody Screen NEGATIVE Assessment/Plan This is a 68 years old female patient presented to the emergency room because of rectal bleeding and she is being admitted for evaluation. #1 GI bleed: Unclear etiology, differential diagnosis could be diverticular bleed or hemorrhoids. Upper GI bleed is unlikely. Vital signs are stable. Hemoglobin and hematocrit are stable. Plan: Admit to [facility] floor for observation, telemetry, keep on clear liquids, gentle IV fluids, repeat H&H tonight at 11 PM, transfuse if hemoglobin less than 8 g/dL, start IV Protonix twice daily, general surgery consult, repeat CBC and BMP tomorrow morning. #2 uncontrolled type 1 diabetes mellitus: Hemoglobin A1c was 12.2 on July 2019. Sugar on admission was 386, no evidence of DKA. Plan: Patient will be on clear liquids, continue insulin doses of insulin, continue nateglinide, Accu- Cheks every 6 hours, insulin suicidal scale. #3 nonischemic cardiomyopathy/chronic systolic CHF: Status post ICD. Clinically stable, compensated. Monitor volume status while on IV fluids, continue Coreg and lisinopril. #4 hypertension: Blood pressure stable, continue Coreg and lisinopril. #5 stage III chronic kidney disease: Baseline creatinine has been around 1.3 to 1.7 mg/dL. Admission creatinine is 1.52, stable at baseline. #6 depression: Continue sertraline. #7 DVT prophylaxis: SCDs. This note was generated with [employer] dictation software. It may contain incorrect words, spelling, and punctuation that were not noted in checking the note before signing. Code Visit OBSV E&M: 45392 Initial observation care L3
[2019-10-14] MEDS: 0.9% Saline Lock 10 ML Syringe IV (18:33)
[2019-10-14] MEDS: 0.9% Normal Saline 1,000 ML 75 ML IV (18:33)
[2019-10-14] MEDS: Insulin Lispro 100 UNIT/ML INSULN.PEN SC ×2 (18:40→23:02)
[2019-10-14 18:41] LABS: Bedside Glucose 313 mg/dL (70-110)
--- NOTE | 2019-10-14 20:25 | NURSING ---
assisted pt to brp; blood dripping from perianal area. unable to determine where blood was coming from but pt did not have a bm. bleeding stopped once pt was resting in bed for 10 min.
[2019-10-14] MEDS: Carvedilol 6.25 MG Tablet PO (22:57)
[2019-10-14] MEDS: Acetaminophen 325 MG Tablet 650 MG PO (22:59)
[2019-10-14 23:04] LABS: Hematocrit 40.6 % (37-47); Hemoglobin 12.8 g/dL (12.0-15.0)
[2019-10-14 23:26] LABS: Bedside Glucose 216 mg/dL (70-110)
[2019-10-15] VITALS (11 sets, daily range): BP systolic 123–144; BP diastolic 59–72; PULSE 71–91; RESP 16–20; TEMP 36.3–36.6; O2SAT 93–97
[2019-10-15] MEDS: 0.9% Saline Lock 10 ML Syringe IV (05:14)
[2019-10-15] MEDS: Insulin Lispro 100 UNIT/ML INSULN.PEN SC ×3 (05:14→23:09)
[2019-10-15 05:31] LABS: Bedside Glucose 231 mg/dL (70-110)
[2019-10-15 05:58] LABS: Absolute Lymphocyte Count 1.06 X10^3/uL (0.83-4.51); Absolute Neutrophil Count 4.2 X10^3/uL (2.0-7.7); Basophil# 0.01 X10^3/uL; Basophil% 0.2 % (0-1); Eosinophil# 0.16 X10^3/uL; Eosinophils% 2.6 % (0-5); Hematocrit 36.6 % (37-47); Hemoglobin 11.6 g/dL (12.0-15.0); Lymphocyte # 1.06 X10^3/ul (4.0); Lymphocyte % 17.5 % (19-41); Mean Corp Hgb Conc 31.7 g/dL (32-36); Mean Corpuscular Hgb 28.2 pg (27.0-32.0); Mean Corpuscular Volume 89.1 fL (81-99); Mean Platelet Vol. 12.4 fl (6.2-12.0); Monocyte# 0.59 X10^3/uL; Monocyte% 9.8 % (0-10); NRBC Flagged by Analyzer 0 % (0-5); Neutrophil % 69.6 % (47-70); Platelet Count 140 K/mm3 (150-450); RBC Distribution Width CV 17.1 % (11.6-14.6); RBC Distribution Width SD 55.5 fl (35.1-43.9); Red Blood Count 4.11 M/mm3 (4.2-5.4)
[2019-10-15 06:08] LABS: Anion Gap 5 (5-15); BUN 14 mg/dL (7-18); BUN/Creat Ratio 11.5 RATIO (10-20); Calcium,Total 8.2 mg/dL (8.5-10.1); Chloride 112 mmol/L (98-107); Creatinine, Serum 1.22 mg/dL (0.55-1.02); EST Glomerular Filtration Rate 46 mL/min (>60); Est Glom Filt Rate - Afr Amer 56 mL/min (>60); Estimated Creatinine Clearance 33.94 ml/min; Glucose 251 mg/dL (74-106); Potassium 3.9 mmol/L (3.5-5.1); Sodium Level 143 mmol/L (136-145)
[2019-10-15] MEDS: Acetaminophen 325 MG Tablet 650 MG PO (06:56)
--- NOTE | 2019-10-15 07:18 | PCM.PN.HOSP ---
Reason for Visit: Follow-up: Rectal bleed Subjective: 68-year-old lady admitted with rectal bleeding Objective: GENERAL: cooperative HEENT: Atraumatic; EYES; Anicteric, Normal Conjunctiva NECK; supple, normal thyroid, RESPIRATORY: Diminished to auscultation CARDIOVASCULAR: Regular S1 S2, GI: soft, normoactive bowel sounds, : No Renal angle tenderness; EXTREMITIES: No edema, no clubbing, MUSCULOSKELETAL: no muscle waisting NEURO: Awake; no lateralizing signs. SKIN: No Rash PSYCH; Flat affect Vitals/I&O's: Vital Signs Temp Pulse Resp BP Pulse Ox 97.4 F L 75 16 131/59 H 97 10/15/19 05:08 10/15/19 05:08 10/15/19 05:08 10/15/19 05:08 10/15/19 05:08 Oxygen Delivery Method Room Air Weight: 116.8 kg Body Mass Index (BMI) 47.0 Finger Stick Blood Glucose 88 Intake and Output for Last 24 Hours 10/13/19 10/14/19 10/15/19 23:59 23:59 23:59 Intake Total 820 / 820 Output Total 150 / 150 Balance 670 / 670 Laboratory Results 10/14/19 15:40: WBC 6.9, RBC 4.83, Hgb 13.7, Hct 43.5, MCV 90.1, MCH 28.4, MCHC 31.5 L, RDW Std Deviation 56.4 H, RDW Coeff of Rahel 17.0 H, Plt Count 164, MPV 11.5, Immature Gran % (Auto) 0.600, Neut % (Auto) 76.9 H, Lymph % (Auto) 10.3 L, Edmunds % (Auto) 9.1, Eos % (Auto) 3.0, Baso % (Auto) 0.1, Absolute Neuts (auto) 5.3, Absolute Lymphs (auto) 0.71 L, Nucleated RBC % 0 10/14/19 15:40: PT 14.6, INR 1.2 10/14/19 15:40: Sodium 141, Potassium 3.9, Chloride 109 H, Carbon Dioxide 27.0, Anion Gap 5, BUN 18, Creatinine 1.52 H, Estim Creat Clear Calc 27.24, Est GFR (MDRD) Af Amer 43 L, Est GFR (MDRD) Non-Af 36 L, BUN/Creatinine Ratio 11.8, Glucose 386 H, Calcium 9.0 10/14/19 15:40: Blood Type O POSITIVE, Antibody Screen NEGATIVE 10/14/19 18:37: POC Glucose 313 H 10/14/19 22:50: Hgb 12.8, Hct 40.6 10/14/19 23:02: POC Glucose 216 H 10/15/19 05:12: POC Glucose 231 H 10/15/19 05:30: WBC 6.0, RBC 4.11 L, Hgb 11.6 L, Hct 36.6 L, MCV 89.1, MCH 28.2, MCHC 31.7 L, RDW Std Deviation 55.5 H, RDW Coeff of Rahel 17.1 H, Plt Count 140 L, MPV 12.4 H, Immature Gran % (Auto) 0.300, Neut % (Auto) 69.6, Lymph % (Auto) 17.5 L, Edmunds % (Auto) 9.8, Eos % (Auto) 2.6, Baso % (Auto) 0.2, Absolute Neuts (auto) 4.2, Absolute Lymphs (auto) 1.06, Nucleated RBC % 0 10/15/19 05:30: Sodium 143, Potassium 3.9, Chloride 112 H, Carbon Dioxide 26.0, Anion Gap 5, BUN 14, Creatinine 1.22 H, Estim Creat Clear Calc 33.94, Est GFR (MDRD) Af Amer 56 L, Est GFR (MDRD) Non-Af 46 L, BUN/Creatinine Ratio 11.5, Glucose 251 H, Calcium 8.2 L Current Medications Acetaminophen (Tylenol) 650 mg PO Q6H PRN PRN PRN Reason: Pain Score 1-3/Temp > 100.7 F Last Admin: 10/15/19 06:56 Dose: 650 mg Documented by: Carvedilol (Coreg) 6.25 mg PO BID COUNTS INCLUDE 234 BEDS AT THE [facility] Last Admin: 10/14/19 22:57 Dose: 6.25 mg Documented by: Dextrose (D50w Syringe) 0 gm IV X1 PRN; Protocol PRN Reason: Hypoglycemia Glucagon () 1 mg IM .X1 PRN PRN Reason: Hypoglycemia Sodium Chloride () 1,000 mls @ 75 mls/hr IV .[id number] COUNTS INCLUDE 234 BEDS AT THE [facility] Last Admin: 10/14/19 18:33 Dose: 75 mls/hr Documented by: Sodium Chloride () 250 mls @ 15 mls/hr IV .[id number] PRN PRN Reason: Saline Flush Insulin Glargine (Lantus (Bkc)) 15 units SC QAM [facility] Insulin Glargine (Lantus (Bkc)) 15 units SC DINNER [facility] Insulin Human Lispro (Humalog Kwikpen (Bkc)) 0 unit SC Q6 [facility]; Protocol Last Admin: 10/15/19 05:14 Dose: 3 u Documented by: Lisinopril (Zestril) 2.5 mg PO DAILY [facility] Ondansetron HCl (Zofran) 4 mg IV Q8H PRN PRN PRN Reason: NAUSEA/VOMITING Sodium Chloride () 10 - 40 ml IV UD PRN PRN Reason: SALINE FLUSH Last Admin: 10/15/19 05:14 Dose: 10 ml Documented by: STROKE Vital Signs/Narrative: Vital Signs Temp Pulse Resp BP Pulse Ox 10/15/19 05:08 97.4 F L 75 16 131/59 H 97 10/15/19 03:59 80 Medical Necessity - Tobacco Use Smoking Status: Never smoker Assessment/Plan 68-year-old lady admitted with rectal bleeding 1. Acute lower GI bleed suspected to be diverticular bleed. ~ Admitted to regular nursing; she was placed on clear liquids, requested for serial H&H, started on IV fluids in addition to Protonix and consult placed to general surgery patient did experience some rectal bleed during the night 2. Diabetes mellitus type 2 uncontrolled with A1c of 12.2 ~Patient was previously on metformin discontinued by PCP, did continue patient home insulin regimen in addition to Accu-Cheks before meals and at bedtime with sliding scale coverage 3. Nonischemic cardiomyopathy ~status post AICD placement 4. Chronic failure with decreased ejection fraction ~EF on echo obtained in April 2019 was 20% is on both beta-blockers as well as FORTINO inhibitors 5. Hypertension ~ blood pressure controlled, home medications continued with dose adjustment as needed 6. Chronic kidney disease stage III 7. Depression ~ on SSRI; continued 8. DVT prophylaxis ~ SCDs Advance planning; did discuss with the patient and family regarding advanced directives as well as CODE STATUS. Did explain the various scenarios involved ( FULL CODE, DNR CCA, DNR CCA with no intubation, and DNR CC and what each meant) patient elected to be DNR CCA no intubation. Order was placed. Time spent on discussion 16 minutes. Active Medications Acetaminophen (Tylenol) 650 mg PO Q6H PRN PRN PRN Reason: Pain Score 1-3/Temp > 100.7 F Last Admin: 10/15/19 06:56 Dose: 650 mg Documented by: Carvedilol (Coreg) 6.25 mg PO BID COUNTS INCLUDE 234 BEDS AT THE [facility] Last Admin: 10/14/19 22:57 Dose: 6.25 mg Documented by: Dextrose (D50w Syringe) 0 gm IV X1 PRN; Protocol PRN Reason: Hypoglycemia Glucagon () 1 mg IM .X1 PRN PRN Reason: Hypoglycemia Sodium Chloride () 1,000 mls @ 75 mls/hr IV .[id number] [facility] Last Admin: 10/15/19 07:58 Dose: 75 mls/hr Documented by: Sodium Chloride () 250 mls @ 15 mls/hr IV .[id number] PRN PRN Reason: Saline Flush Insulin Glargine (Lantus (Bkc)) 15 units SC QAM [facility] Insulin Glargine (Lantus (Bkc)) 15 units SC DINNER COUNTS INCLUDE 234 BEDS AT THE [facility] Insulin Human Lispro (Humalog Kwikpen (Bkc)) 0 unit SC Q6 [facility]; Protocol Last Admin: 10/15/19 05:14 Dose: 3 u Documented by: Lisinopril (Zestril) 2.5 mg PO DAILY COUNTS INCLUDE 234 BEDS AT THE [facility] Ondansetron HCl (Zofran) 4 mg IV Q8H PRN PRN PRN Reason: NAUSEA/VOMITING Sodium Chloride () 10 - 40 ml IV UD PRN PRN Reason: SALINE FLUSH Last Admin: 10/15/19 05:14 Dose: 10 ml Documented by: Code Visit Inpatient E&M: 52751 Subs Hosp L3 Procedures: 08927 Advncd Care Plan 30 Min
[2019-10-15] MEDS: 0.9% Normal Saline 1,000 ML 75 ML IV ×2 (07:58→19:49)
[2019-10-15 08:52] LABS: Hemoglobin 12.3 g/dL (12.0-15.0)
[2019-10-15] MEDS: Carvedilol 6.25 MG Tablet PO ×2 (10:03→23:10)
[2019-10-15] MEDS: Sertraline 100 MG Tablet PO (10:03)
[2019-10-15] MEDS: Lisinopril 2.5 MG Tablet PO (10:03)
[2019-10-15 10:16] LABS: Bedside Glucose 242 mg/dL (70-110)
--- NOTE | 2019-10-15 10:16 | CON.PCM_ITS ---
Problem List (1) Rectal bleeding Status: Acute Reason for Consult Date of Consultation: 10/15/19 Reason for Consultation: Rectal bleeding History of Present Illness: The patient is a 68 year old F who presented to the ED via squad after a single episode of bright red blood in the toilet. Patient states she went to have a bowel movement and only blood was noted in the toilet. Patient states she has been on clear liquids since yesterday. She denies previous rectal bleeding ever. She denies past history of hemorrhoids. She denies melena, hematemesis. Patient notes she occasionally has cramping abdominal discomfort prior to the a bowel movement. She denies previous colonoscopy or upper scope. She denies family history of colon cancer. She does follow with Dr. Ybarra. She has a defibrillator placed years ago. She denies having the defibrillator checked. She denies blood thinners. She notes having an additional episode of bleeding over night. Her Hgb went from 13.7 to 11.6 and Platelets 164 to 140. Past Medical History Past Medical History (Chronic Problems): Chronic Problems (Last Reviewed 09/06/19 @ 16:11 by Philipp Ybarra MD) IDDM (insulin dependent diabetes mellitus) (Chronic) Non-ischemic cardiomyopathy (Chronic) Essential (primary) hypertension (Chronic) Acute on chronic systolic CHF (congestive heart failure) (Chronic) History of implantable cardiac defibrillator (ICD) (Chronic) Medical History: Medical History (Last Reviewed 10/15/19 @ 11:05 by Loan Wright PA-C) Essential (primary) hypertension (Chronic) I10 Acute on chronic systolic CHF (congestive heart failure) (Chronic) I50.23 Depression F32.9 Severe intertrigo Stage III chronic kidney disease N18.3 Type 2 diabetes mellitus E11.9 Allergies No Known Allergies Allergy (Verified 10/14/19 15:36) Home Medications: Ambulatory Orders Medication Instructions Recorded Sertraline HCl 100 mg PO DAILY 05/07/19 Nateglinide 1 tab PO TID 07/22/19 carvedilol 6.25 mg tablet 6.25 mg PO BID #90 tab 09/06/19 lisinopril 2.5 mg tablet 2.5 mg PO DAILY #90 tab 09/06/19 magnesium oxide 400 mg (241.3 mg 400 mg PO DAILYCM #30 tab 09/06/19 magnesium) tablet torsemide 20 mg tablet 20 mg PO DAILY #60 tab 09/06/19 Insulin Glargine [Lantus SoloStar 15 units SUBCUT DINNER #1 pen 09/13/19 Pen] Insulin Glargine [Lantus SoloStar 15 units SUBCUT QAM #1 pen 09/13/19 Pen] Surgical History: Surgical History (Last Reviewed 10/15/19 @ 11:05 by Loan Wright PA-C) History of implantable cardiac defibrillator (ICD) (Chronic) Total knee replacement status Z96.659 Surgical History: - - ICD Placement Psychiatric History: No 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 Denies: Constipation, Diarrhea, Hematemesis, Nausea, Melena, Vomiting Genitourinary: Denies: Dysuria Musculoskeletal: Reports: Joint Pain. Denies: Joint Tenderness Skin: Denies: Rash, Wounds Neurological: Denies: Numbness, Tingling, Focal weakness Psychiatric: Denies: Anxiety, Depression, Homicidal Ideations, Suicidal Ideations Hematologic/ Lymphatic: Denies: Easy Bruising, Easy Bleeding, Hx of blood clot, Hx of blood transfusion Patient Problems: Active and Suspected Problems (Last Reviewed 09/06/19 @ 16:11 by Philipp Ybarra MD) Rectal bleeding (Acute) - Physical Exam Vitals/I&O's: Vital Signs Temp Pulse Resp BP Pulse Ox 97.6 F L 88 18 129/61 H 93 10/15/19 09:55 10/15/19 09:55 10/15/19 09:55 10/15/19 09:55 10/15/19 09:55 Oxygen Delivery Method Room Air Weight: 257 lb 7.999 oz Body Mass Index (BMI) 47.0 Finger Stick Blood Glucose 88 Intake and Output for Last 24 Hours 10/13/19 10/14/19 10/15/19 23:59 23:59 23:59 Intake Total 1820 / 1820 Output Total 150 / 150 Balance 1670 / 1670 General: Alert, Oriented x3, Cooperative, - - Obese HEENT: Atraumatic, PERRLA, EOMI, Normocephalic Neck: Supple, No JVD, Negative Carotid Bruits Lungs: Clear to auscultation, Normal air movement Cardiovascular: Regular rate, No murmurs Abdomen: Soft, Non Tender, Hypoactive Bowel Sounds - difficult to auscultate due to body habitus., Obese Extremities: No edema, Capillary Refill Less than 3 Seconds Skin: No rashes, No breakdown Musculoskeletal: No Tenderness to Palpation of Joints or Extremities Neurological: Neuro grossly intact Psych/Mental Status: Normal Affect, Appropriate Laboratory Results 10/14/19 15:40: WBC 6.9, RBC 4.83, Hgb 13.7, Hct 43.5, MCV 90.1, MCH 28.4, MCHC 31.5 L, RDW Std Deviation 56.4 H, RDW Coeff of Rahel 17.0 H, Plt Count 164, MPV 11.5, Immature Gran % (Auto) 0.600, Neut % (Auto) 76.9 H, Lymph % (Auto) 10.3 L, Lewis % (Auto) 9.1, Eos % (Auto) 3.0, Baso % (Auto) 0.1, Absolute Neuts (auto) 5.3, Absolute Lymphs (auto) 0.71 L, Nucleated RBC % 0 10/14/19 15:40: PT 14.6, INR 1.2 10/14/19 15:40: Sodium 141, Potassium 3.9, Chloride 109 H, Carbon Dioxide 27.0, Anion Gap 5, BUN 18, Creatinine 1.52 H, Estim Creat Clear Calc 27.24, Est GFR (MDRD) Af Amer 43 L, Est GFR (MDRD) Non-Af 36 L, BUN/Creatinine Ratio 11.8, Glucose 386 H, Calcium 9.0 10/14/19 15:40: Blood Type O POSITIVE, Antibody Screen NEGATIVE 10/14/19 18:37: POC Glucose 313 H 10/14/19 22:50: Hgb 12.8, Hct 40.6 10/14/19 23:02: POC Glucose 216 H 10/15/19 05:12: POC Glucose 231 H 10/15/19 05:30: WBC 6.0, RBC 4.11 L, Hgb 11.6 L, Hct 36.6 L, MCV 89.1, MCH 28.2, MCHC 31.7 L, RDW Std Deviation 55.5 H, RDW Coeff of Rahel 17.1 H, Plt Count 140 L, MPV 12.4 H, Immature Gran % (Auto) 0.300, Neut % (Auto) 69.6, Lymph % (Auto) 17.5 L, Lewis % (Auto) 9.8, Eos % (Auto) 2.6, Baso % (Auto) 0.2, Absolute Neuts (auto) 4.2, Absolute Lymphs (auto) 1.06, Nucleated RBC % 0 10/15/19 05:30: Sodium 143, Potassium 3.9, Chloride 112 H, Carbon Dioxide 26.0, Anion Gap 5, BUN 14, Creatinine 1.22 H, Estim Creat Clear Calc 33.94, Est GFR (MDRD) Af Amer 56 L, Est GFR (MDRD) Non-Af 46 L, BUN/Creatinine Ratio 11.5, Glucose 251 H, Calcium 8.2 L 10/15/19 08:40: Hgb 12.3, Hct 39.0 10/15/19 10:05: POC Glucose 242 H Current Medications Acetaminophen (Tylenol) 650 mg PO Q6H PRN PRN PRN Reason: Pain Score 1-3/Temp > 100.7 F Last Admin: 10/15/19 06:56 Dose: 650 mg Documented by: Carvedilol (Coreg) 6.25 mg PO BID [facility] Last Admin: 10/15/19 10:03 Dose: 6.25 mg Documented by: Dextrose (D50w Syringe) 0 gm IV X1 PRN; Protocol PRN Reason: Hypoglycemia Glucagon () 1 mg IM .X1 PRN PRN Reason: Hypoglycemia Sodium Chloride () 1,000 mls @ 75 mls/hr IV .[id number] [facility] Last Admin: 10/15/19 07:58 Dose: 75 mls/hr Documented by: Sodium Chloride () 250 mls @ 15 mls/hr IV .[id number] PRN PRN Reason: Saline Flush Insulin Glargine (Lantus (Bkc)) 15 units SC QAM [facility] Last Admin: 10/15/19 10:03 Dose: 15 u Documented by: Insulin Glargine (Lantus (Bk)) 15 units SC DINNER [facility] Insulin Human Lispro (Humalog Kwikpen ([facility])) 0 unit SC Q6 [facility]; Protocol Last Admin: 10/15/19 05:14 Dose: 3 u Documented by: Lisinopril (Zestril) 2.5 mg PO DAILY [facility] Last Admin: 10/15/19 10:03 Dose: 2.5 mg Documented by: Magnesium [facility] ([facility]-Ox 400) [facility] Ondansetron HCl (Zofran) 4 mg IV Q8H PRN PRN PRN Reason: NAUSEA/VOMITING Sertraline HCl (Zoloft) 100 mg PO DAILY [facility] Last Admin: 10/15/19 10:03 Dose: 100 mg Documented by: Sodium Chloride () 10 - 40 ml IV UD PRN PRN Reason: SALINE FLUSH Last Admin: 10/15/19 05:14 Dose: 10 ml Documented by: Assessment/Plan All Active Problems (Last Reviewed 09/06/19 @ 16:11 by Philipp Ybarra MD) Rectal bleeding (Acute) I have been consulted in conjunction with Dr. Comer. Impression: Rectal bleeding Plan: I have discussed this patient in conjunction with Dr. Comer. Dr. Comer will plan to perform a colonoscopy with possible biopsies. Procedure details, risks and benefits have been explained to the patient. Will utilize Miralax prep. NPO after midnight. Procedure scheduled for 12:30 pm tomorrow. Patient has had the opportunity to ask and have questions answered. Patient verbally understands and agrees with the plan. Thank you for allowing us to participate in this patient's care. Code Visit Office Visits / Consults: [id number] IP Consult L3
[2019-10-15] MEDS: Bisacodyl 5 MG Tablet 20 MG PO (12:58)
[2019-10-15 13:06] LABS: Bedside Glucose 312 mg/dL (70-110)
--- NOTE | 2019-10-15 13:37 | CASEMGMT ---
Intro role of CM to patient and BAZZI form explained re: Observation status for treatment of rectal bleeding. Explained hospitalization will be paid per? insurance policy for Outpatient billing?and condition will continue to be evaluated for Inpt necessity. Also let pt know that [facility] sends paper in the billing packet with their phone number if questions arise. Discussed Pharmacy section of BAZZI form and self administered medication guideline.? Pt verbalizes understanding and does not have further questions. Form signed and placed in chart, copy to pt. ISELA NOGUEIRA BSN CM
[2019-10-15 14:39] LABS: Hematocrit 37.7 % (37-47); Hemoglobin 11.9 g/dL (12.0-15.0)
[2019-10-15] MEDS: Polyethylene Glycol 3350 BOWEL PREP PO (16:24)
[2019-10-15 17:16] LABS: Bedside Glucose 146 mg/dL (70-110)
[2019-10-15] MEDS: Ondansetron 4 MG/2 ML Vial IV (19:49)
[2019-10-15 20:45] LABS: Hemoglobin 11.8 g/dL (12.0-15.0)
[2019-10-15 23:20] LABS: Bedside Glucose 266 mg/dL (70-110)
[2019-10-16] VITALS (16 sets, daily range): BP systolic 108–144; BP diastolic 50–74; PULSE 68–85; RESP 16–18; TEMP 36.4–36.7; O2SAT 93–95; BMI 47.0
[2019-10-16 02:28] LABS: Absolute Neutrophil Count 4.6 X10^3/uL (2.0-7.7); Basophil# 0.01 X10^3/uL; Basophil% 0.2 % (0-1); Eosinophil# 0.16 X10^3/uL; Eosinophils% 2.5 % (0-5); Hematocrit 36.8 % (37-47); Hemoglobin 11.7 g/dL (12.0-15.0); Lymphocyte % 14.2 % (19-41); Mean Corp Hgb Conc 31.8 g/dL (32-36); Mean Corpuscular Hgb 28.5 pg (27.0-32.0); Mean Corpuscular Volume 89.5 fL (81-99); Mean Platelet Vol. 11.9 fl (6.2-12.0); Monocyte# 0.65 X10^3/uL; Monocyte% 10.2 % (0-10); NRBC Flagged by Analyzer 0 % (0-5); Neutrophil # 4.61 X10^3/uL (2.7-7.7); Neutrophil % 72.4 % (47-70); Platelet Count 142 K/mm3 (150-450); RBC Distribution Width CV 16.9 % (11.6-14.6); RBC Distribution Width SD 55.2 fl (35.1-43.9); Red Blood Count 4.11 M/mm3 (4.2-5.4); White Blood Count 6.4 K/mm3 (4.4-11.0)
[2019-10-16 02:41] LABS: Anion Gap 4 (5-15); BUN 12 mg/dL (7-18); BUN/Creat Ratio 11.3 RATIO (10-20); Chloride 113 mmol/L (98-107); Creatinine, Serum 1.06 mg/dL (0.55-1.02); EST Glomerular Filtration Rate 54 mL/min (>60); Est Glom Filt Rate - Afr Amer 66 mL/min (>60); Estimated Creatinine Clearance 39.06 ml/min; Glucose 139 mg/dL (74-106); Magnesium 1.4 mg/dL (1.6-2.6); Potassium 3.8 mmol/L (3.5-5.1); Sodium Level 143 mmol/L (136-145)
[2019-10-16] MEDS: 0.9% Normal Saline 1,000 ML 75 ML IV ×2 (05:30→22:14)
[2019-10-16 05:31] LABS: Bedside Glucose 108 mg/dL (70-110)
--- NOTE | 2019-10-16 06:00 | EKG12_ITS ---
Test Reason : PRE-OP Blood Pressure : / mmHG Vent. 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 rate has decreased BY 35 BPM Nonspecific T wave abnormality now evident in Inferior leads Confirmed by SALVADOR BENNETT ([id number]), food editor SERGO HERNANDEZ ([id number]) on 10/21/2019 10:53:38 AM Referred By: Courtney Goetz Confirmed By:SALVADOR BENNETT
--- NOTE | 2019-10-16 07:40 | PCM.PN.HOSP ---
Patient Problems: Active and Suspected Problems (Last Reviewed 10/15/19 @ 11:05 by Loan Wright PA-C) Rectal bleeding (Acute) Reason for Visit: Follow-up rectal bleed Subjective: Patient scheduled to undergo colonoscopy this afternoon. Mg 1.4 repletion initiated Objective: GENERAL: cooperative HEENT: Atraumatic; EYES; Anicteric, Normal Conjunctiva NECK; supple, normal thyroid, RESPIRATORY: Diminished to auscultation CARDIOVASCULAR: Regular S1 S2, GI: soft, normoactive bowel sounds, : No Renal angle tenderness; EXTREMITIES: No edema, no clubbing, MUSCULOSKELETAL: no muscle waisting NEURO: Awake; no lateralizing signs. SKIN: No Rash PSYCH; Flat affect Vitals/I&O's: Vital Signs Temp Pulse Resp BP Pulse Ox 97.7 F L 78 18 108/50 L 95 10/16/19 02:24 10/16/19 07:29 10/16/19 02:24 10/16/19 02:24 10/16/19 02:24 Oxygen Delivery Method Room Air Weight: 116.8 kg Body Mass Index (BMI) 47.0 Finger Stick Blood Glucose 88 Intake and Output for Last 24 Hours 10/14/19 10/15/19 10/16/19 23:59 23:59 23:59 Intake Total 4768.75 / 4768.75 726.25 / 726.25 Output Total 300 / 300 Balance 4468.75 / 4468.75 726.25 / 726.25 Laboratory Results 10/15/19 08:40: Hgb 12.3, Hct 39.0 10/15/19 10:05: POC Glucose 242 H 10/15/19 12:55: POC Glucose 312 H 10/15/19 14:25: Hgb 11.9 L, Hct 37.7 10/15/19 16:32: POC Glucose 146 H 10/15/19 20:40: Hgb 11.8 L, Hct 38.0 10/15/19 23:09: POC Glucose 266 H 10/16/19 02:17: WBC 6.4, RBC 4.11 L, Hgb 11.7 L, Hct 36.8 L, MCV 89.5, MCH 28.5, MCHC 31.8 L, RDW Std Deviation 55.2 H, RDW Coeff of Rahel 16.9 H, Plt Count 142 L, MPV 11.9, Immature Gran % (Auto) 0.500, Neut % (Auto) 72.4 H, Lymph % (Auto) 14.2 L, [place] % (Auto) 10.2 H, Eos % (Auto) 2.5, Baso % (Auto) 0.2, Absolute Neuts (auto) 4.6, Absolute Lymphs (auto) 0.90, Nucleated RBC % 0 10/16/19 02:17: Sodium 143, Potassium 3.8, Chloride 113 H, Carbon Dioxide 26.0, Anion Gap 4 L, BUN 12, Creatinine 1.06 H, Estim Creat Clear Calc 39.06, Est GFR (MDRD) Af Amer 66, Est GFR (MDRD) Non-Af 54 L, BUN/Creatinine Ratio 11.3, Glucose 139 H, Calcium 8.0 L, Magnesium 1.4 L 10/16/19 05:27: POC Glucose 108 Current Medications Acetaminophen (Tylenol) 650 mg PO Q6H PRN PRN PRN Reason: Pain Score 1-3/Temp > 100.7 F Last Admin: 10/15/19 06:56 Dose: 650 mg Documented by: Carvedilol (Coreg) 6.25 mg PO BID [facility] Last Admin: 10/15/19 23:10 Dose: 6.25 mg Documented by: Dextrose (D50w Syringe) 0 gm IV X1 PRN; Protocol PRN Reason: Hypoglycemia Glucagon () 1 mg IM .X1 PRN PRN Reason: Hypoglycemia Sodium Chloride () 1,000 mls @ 75 mls/hr IV .[id number] [facility] Last Admin: 10/16/19 05:30 Dose: 75 mls/hr Documented by: Sodium Chloride () 250 mls @ 15 mls/hr IV .[id number] PRN PRN Reason: Saline Flush Insulin Glargine (Lantus (Bkc)) 15 units SC QAM [facility] Last Admin: 10/15/19 10:03 Dose: 15 u Documented by: Insulin Glargine (Lantus (Bkc)) 15 units SC DINNER [facility] Last Admin: 10/15/19 16:34 Dose: 15 u Documented by: Insulin Human Lispro (Humalog Kwikpen ([facility])) 0 unit SC Q6 [facility]; Protocol Last Admin: 10/16/19 05:28 Dose: Not Given Documented by: Lisinopril (Zestril) 2.5 mg PO DAILY [facility] Last Admin: 10/15/19 10:03 Dose: 2.5 mg Documented by: Magnesium Oxide (Mag-Ox 400) [facility] Ondansetron HCl (Zofran) 4 mg IV Q8H PRN PRN PRN Reason: NAUSEA/VOMITING Last Admin: 10/15/19 19:49 Dose: 4 mg Documented by: Polyethylene Glycol (Clearlax For Bowel Prep) 0 bottle PO DAILY@1600 [facility] Stop: 10/16/19 15:00 Last Admin: 10/15/19 16:24 Dose: 64 oz Documented by: Sertraline HCl (Zoloft) 100 mg PO DAILY [facility] Last Admin: 10/15/19 10:03 Dose: 100 mg Documented by: Sodium Chloride () 10 - 40 ml IV UD PRN PRN Reason: SALINE FLUSH Last Admin: 10/15/19 05:14 Dose: 10 ml Documented by: STROKE Vital Signs/Narrative: Vital Signs Pulse 10/16/19 07:29 78 Medical Necessity - Tobacco Use Smoking Status: Never smoker Assessment/Plan All Active Problems (Last Reviewed 10/15/19 @ 11:05 by Loan Wright PA-C) Rectal bleeding (Acute) 68-year-old lady admitted with rectal bleeding 1. Acute lower GI bleed suspected to be diverticular bleed. ~ Admitted to regular nursing; she was placed on clear liquids, requested for serial H&H, started on IV fluids in addition to Protonix and consult placed to general surgery patient did experience some rectal bleed during the night ?10/16/2019: Patient was seen in consultation by general surgery Dr. Comer plan is for patient undergo colonoscopy on the afternoon of 10/16/2019. Patient's hemoglobin did drop from 13.7-11.7 2. Diabetes mellitus type 2 uncontrolled with A1c of 12.2 ~Patient was previously on metformin discontinued by PCP, did continue patient home insulin regimen in addition to Accu-Cheks before meals and at bedtime with sliding scale coverage 3. Nonischemic cardiomyopathy ~status post AICD placement 4. Chronic failure with decreased ejection fraction ~EF on echo obtained in April 2019 was 20% is on both beta-blockers as well as FORTINO inhibitors 5. Hypertension ~ blood pressure controlled, home medications continued with dose adjustment as needed 6. Chronic kidney disease stage III 7. Depression ~ on SSRI; continued 8. DVT prophylaxis ~ SCDs 9. Hypomagnesemia corrected per protocol Code Visit Inpatient E&M: 98899 Subs Hosp L2
[2019-10-16 11:46] LABS: Bedside Glucose 138 mg/dL (70-110)
--- NOTE | 2019-10-16 11:46 | NURSING ---
called report to Marcelle in AC at this time.
--- NOTE | 2019-10-16 12:30 | COLBX_PTH ---
PATIENT: KRISSY BRYSON LOC: [facility]3 U#:[id number] AGE/SX: 68/F ROOM: OH306 RE10/14/[address]: Dr. Jb Corona MD : [id number] BED: 1 DIS: 10/17/2019 SPEC #: [id number] RECD: 10/16/19 14:58 STATUS: JAIDA REQ #: [id number] SHORTY: 10/16/19 12:[address]: Dejon Comer DEPT: SURGICAL PATHOLOGY RECD BY: Jermaine Fowler ENTERED: 10/17/19 13:32 SP TYPE: COLON BX OTHR DR: MD Dr. Courtney Gama MD Out of [facility] Doctor Tissues: Descending colon Procedures: Surgery Specimen Level IV HEADER OPERATION: Colonoscopy (MAC) PRE-OP DIAGNOSIS: Rectal bleeding TISSUE SUBMITTED: Polyp descending colon MICROSCOPIC DIAGNOSIS Polyp descending colon, biopsy: Tubular adenoma. SJ:cecilia 10/18/19 MICROSCOPIC DESCRIPTION Slides are reviewed. GROSS DESCRIPTION Received in fixative is one container labeled with the patient's name and designated descending polyp. The specimen consists of one irregular fragment of light francis soft tissue that measures 0.3 x 0.3 x 0.1 cm. The specimen is totally submitted in one cassette. / LIN:cecilia 10/17/19 TC:1 CPT: 19379
--- NOTE | 2019-10-16 13:12 | OP.COLON_ITS ---
Patient Name: Anu Duvall Procedure Date: 10/16/2019 12:49 PM Date of : 1950 Age: 68 Procedure: Colonoscopy Indications: Heme positive stool, Rectal bleeding Providers: Dejon Comer MD Referring MD: Courtney Goetz Medicines: See the Anesthesia note for documentation of the administered medications Patient Profile: This is a 68 year old female. Refer to note in patient chart for documentation of history and physical. Last Colonoscopy: none. The patient's first colonoscopy is today. Complications: No immediate complications. Procedure: Pre-Anesthesia Assessment: - Prior to the procedure, a History and Physical was performed, and patient medications and allergies were reviewed. The patient's tolerance of previous anesthesia was also reviewed. The risks and benefits of the procedure and the sedation options and risks were discussed with the patient. All questions were answered, and informed consent was obtained. Prior Anticoagulants: The patient has taken no previous anticoagulant or antiplatelet agents. ASA Grade Assessment: III - A patient with severe systemic disease. After reviewing the risks and benefits, the patient was deemed in satisfactory condition to undergo the procedure. After I obtained informed consent, the scope was passed under direct vision. Throughout the procedure, the patient's blood pressure, pulse, and oxygen saturations were monitored continuously. The colonoscope was introduced through the anus and advanced to the cecum, identified by appendiceal orifice and ileocecal valve. The colonoscopy was performed without difficulty. The patient tolerated the procedure well. The quality of the bowel preparation was good. Scope In: 12:56:44 PM Scope Withdrawal Time 0 hours 6 minutes 42 seconds Scope Out: 1:09:04 PM Total Procedure Duration Time 0 hours 12 minutes 20 seconds Findings: A 5 mm polyp was found in the descending colon. The polyp was sessile. The polyp was removed with a hot snare. Resection and retrieval were complete. Many small-mouthed diverticula were found in the sigmoid colon. No biopsies or other specimens were collected for this exam. Non-bleeding internal hemorrhoids were found during retroflexion. The hemorrhoids were mild and small. The exam was otherwise without abnormality. Impression: - One 5 mm polyp in the descending colon, removed with a hot snare. Resected and retrieved. - Diverticulosis in the sigmoid colon. No specimens collected. - Non-bleeding internal hemorrhoids. - The examination was otherwise normal. Recommendation: - Return patient to hospital [facility] for ongoing care. - Advance diet as tolerated. - Continue present medications. - Await pathology results. - Repeat colonoscopy in 5 years for surveillance. - Return to my office in 1 week. Procedure Code(s): --- Professional --- 74821, Colonoscopy, flexible; with removal of tumor(s), polyp(s), or other lesion(s) by snare technique Diagnosis Code(s): --- Professional --- D12.4, Benign neoplasm of descending colon K64.8, Other hemorrhoids R19.5, Other fecal abnormalities K62.5, Hemorrhage of anus and rectum K57.30, Diverticulosis of large intestine without perforation or abscess without bleeding CPT copyright 2017 [employer]. All rights reserved. The codes documented in this report are preliminary and upon maintenance and repair worker review may be revised to meet current compliance requirements. MD Dejon Lester MD 10/16/2019 1:12:04 PM This report has been signed electronically. Number of Addenda: 0 Note Initiated On: 10/16/2019 12:49 PM
[2019-10-16] MEDS: Carvedilol 6.25 MG Tablet PO ×2 (14:09→22:09)
[2019-10-16] MEDS: Sertraline 100 MG Tablet PO (14:09)
[2019-10-16] MEDS: Lisinopril 2.5 MG Tablet PO (14:14)
[2019-10-16] MEDS: Acetaminophen 325 MG Tablet 650 MG PO ×2 (14:26→22:14)
[2019-10-16] MEDS: Ondansetron 4 MG/2 ML Vial IV (15:10)
[2019-10-16 16:20] LABS: Bedside Glucose 182 mg/dL (70-110)
[2019-10-16] MEDS: Insulin Lispro 100 UNIT/ML INSULN.PEN SC (17:21)
[2019-10-16 22:26] LABS: Bedside Glucose 218 mg/dL (70-110)
[2019-10-17] MEDS: Insulin Lispro 100 UNIT/ML INSULN.PEN SC ×2 (00:14→05:46)
[2019-10-17 02:05] VITALS: BP 126/60; PULSE 67; RESP 16; TEMP 36.7; O2SAT 93
[2019-10-17 04:35] VITALS: PULSE 65
[2019-10-17] MEDS: Acetaminophen 325 MG Tablet 650 MG PO (05:44)
[2019-10-17 05:46] LABS: Absolute Lymphocyte Count 0.82 X10^3/uL (0.83-4.51); Absolute Neutrophil Count 3.8 X10^3/uL (2.0-7.7); Eosinophil# 0.13 X10^3/uL; Eosinophils% 2.4 % (0-5); Hematocrit 37.1 % (37-47); Hemoglobin 11.4 g/dL (12.0-15.0); Lymphocyte # 0.82 X10^3/ul (4.0); Lymphocyte % 15.1 % (19-41); Mean Corp Hgb Conc 30.7 g/dL (32-36); Mean Corpuscular Hgb 27.7 pg (27.0-32.0); Mean Platelet Vol. 11.7 fl (6.2-12.0); Monocyte# 0.62 X10^3/uL; Monocyte% 11.4 % (0-10); NRBC Flagged by Analyzer 0 % (0-5); Neutrophil # 3.84 X10^3/uL (2.7-7.7); Neutrophil % 70.5 % (47-70); Platelet Count 136 K/mm3 (150-450); RBC Distribution Width CV 17.1 % (11.6-14.6); RBC Distribution Width SD 56.6 fl (35.1-43.9); Red Blood Count 4.12 M/mm3 (4.2-5.4); White Blood Count 5.4 K/mm3 (4.4-11.0)
[2019-10-17 05:56] LABS: Bedside Glucose 179 mg/dL (70-110)
[2019-10-17 06:00] LABS: Anion Gap 4 (5-15); BUN 12 mg/dL (7-18); BUN/Creat Ratio 9.7 RATIO (10-20); Calcium,Total 8.1 mg/dL (8.5-10.1); Chloride 114 mmol/L (98-107); Creatinine, Serum 1.24 mg/dL (0.55-1.02); EST Glomerular Filtration Rate 45 mL/min (>60); Est Glom Filt Rate - Afr Amer 55 mL/min (>60); Estimated Creatinine Clearance 33.39 ml/min; Glucose 172 mg/dL (74-106); Potassium 4.2 mmol/L (3.5-5.1); Sodium Level 143 mmol/L (136-145)
[2019-10-17 07:24] VITALS: O2SAT 94
--- NOTE | 2019-10-17 08:02 | PCM.DC ---
- Discharge Diagnoses Current Active Problems: Current Active and Chronic Problems (Last Reviewed 10/15/19 @ 11:05 by Loan Wright PA-C) Rectal bleeding (Acute) You will use the following diet at home:: Calorie/Carbohydrate Controlled (specify 1200, 1400, etc) - 1800 Your food should be the consistency of: Regular Discharge Activity: Return to Normal Activity Allergies/Adverse Reactions: Allergies No Known Allergies Allergy (Verified 10/14/19 15:36) Medications to take at Discharge Sertraline HCl 100 mg PO DAILY 05/07/19 Nateglinide 1 tab PO TID 07/22/19 carvedilol 6.25 mg tablet 6.25 mg PO BID #90 tab 09/06/19 lisinopril 2.5 mg tablet 2.5 mg PO DAILY #90 tab 09/06/19 magnesium oxide 400 mg (241.3 mg magnesium) tablet 400 mg PO DAILYCM #30 tab 09/06/19 torsemide 20 mg tablet 20 mg PO DAILY #60 tab 09/06/19 Insulin Glargine [Lantus SoloStar Pen] 15 units SUBCUT DINNER #1 pen 09/13/19 Insulin Glargine [Lantus SoloStar Pen] 15 units SUBCUT QAM #1 pen 09/13/19 Primary Care Physician: [facility] Doctor,Out of [NON-STAFF] - Please follow up with your Primary Care Physician in: in 1 week Test Results: Test results from this visit will be discussed in further detail at your follow-up appointment, if applicable. Please Follow Up With: Dejon Comer MD When: as scheduled Proposed Discharge Date: 10/17/19
--- NOTE | 2019-10-17 08:04 | PCM.DC.SUM ---
Discharge Date and Diagnosis - Problem List Patient Problems: Active and Suspected Problems (Last Reviewed 10/15/19 @ 11:05 by Loan Wright PA-C) Rectal bleeding (Acute) Date of Admission: 10/14/19 Date of Discharge: 10/17/19 - Primary Discharge Diagnosis Active and Suspected Problems (Last Reviewed 10/15/19 @ 11:05 by Loan Wright PA-C) Rectal bleeding (Acute) - Secondary Discharge Diagnosis Chronic Problems (Last Reviewed 10/15/19 @ 11:05 by Loan Wright PA-C) IDDM (insulin dependent diabetes mellitus) (Chronic) Non-ischemic cardiomyopathy (Chronic) Essential (primary) hypertension (Chronic) Acute on chronic systolic CHF (congestive heart failure) (Chronic) History of implantable cardiac defibrillator (ICD) (Chronic) Hospital Course and Treatment Operations: None Summary of Care Provided: 68-year-old lady admitted with rectal bleeding 1. Acute lower GI bleed secondary to diverticular bleed. ~ Admitted to regular nursing; she was placed on clear liquids, requested for serial H&H, started on IV fluids in addition to Protonix and consult placed to general surgery. Patient was seen in consultation by general surgery Dr. Comer underwent colonoscopy on the afternoon of 10/16/2019. Findings included One 5 mm polyp in the descending colon, removed with a hot snare. Resected and retrieved. - Diverticulosis in the sigmoid colon. No specimens collected. - Non-bleeding internal hemorrhoids. - The examination was otherwise normal. Patient had no recurrence of the bleed discharged home with plans to follow-up with general surgery for pathology results and for repeat colonoscopy in 5 years for surveillance 2. Diabetes mellitus type 2 uncontrolled with A1c of 12.2 ~Patient was previously on metformin discontinued by PCP, did continue patient home insulin regimen in addition to Accu-Cheks before meals and at bedtime with sliding scale coverage 3. Nonischemic cardiomyopathy ~status post AICD placement 4. Chronic failure with decreased ejection fraction ~EF on echo obtained in April 2019 was 20% is on both beta-blockers as well as FORTINO inhibitors 5. Hypertension ~ blood pressure controlled, home medications continued with dose adjustment as needed 6. Chronic kidney disease stage III 7. Depression ~ on SSRI; continued 8. DVT prophylaxis ~ SCDs 9. Hypomagnesemia corrected per protocol Patient Problems: Active and Suspected Problems (Last Reviewed 10/15/19 @ 11:05 by Loan Wright PA-C) Rectal bleeding (Acute) Objective: GENERAL: cooperative HEENT: Atraumatic; EYES; Anicteric, Normal Conjunctiva NECK; supple, normal thyroid, RESPIRATORY: Diminished to auscultation CARDIOVASCULAR: Regular S1 S2, GI: soft, normoactive bowel sounds, : No Renal angle tenderness; EXTREMITIES: No edema, no clubbing, MUSCULOSKELETAL: no muscle waisting NEURO: Awake; no lateralizing signs. SKIN: No Rash PSYCH; Flat affect - Physical Exam Vitals/I&O's: Vital Signs Temp Pulse Resp BP Pulse Ox 98.0 F 65 16 126/60 H 93 10/17/19 02:05 10/17/19 04:35 10/17/19 02:05 10/17/19 02:05 10/17/19 02:05 Oxygen Delivery Method Room Air Weight: 116.8 kg Body Mass Index (BMI) 47.0 Finger Stick Blood Glucose 88 Intake and Output for Last 24 Hours 10/15/19 10/16/19 10/17/19 23:59 23:59 23:59 Intake Total 4768.75 / 4768.75 2430.25 / 2730.25 300 / 300 Output Total 300 / 300 350 / 350 Balance 4468.75 / 4468.75 2430.25 / 2380.25 -50 / -50 Laboratory Results 10/16/19 11:39: POC Glucose 138 H 10/16/19 16:16: POC Glucose 182 H 10/16/19 22:13: POC Glucose 218 H 10/17/19 05:16: WBC 5.4, RBC 4.12 L, Hgb 11.4 L, Hct 37.1, MCV 90.0, MCH 27.7, MCHC 30.7 L, RDW Std Deviation 56.6 H, RDW Coeff of Rahel 17.1 H, Plt Count 136 L, MPV 11.7, Immature Gran % (Auto) 0.600, Neut % (Auto) 70.5 H, Lymph % (Auto) 15.1 L, [place] % (Auto) 11.4 H, Eos % (Auto) 2.4, Baso % (Auto) 0.0, Absolute Neuts (auto) 3.8, Absolute Lymphs (auto) 0.82 L, Nucleated RBC % 0 10/17/19 05:16: Sodium 143, Potassium 4.2, Chloride 114 H, Carbon Dioxide 25.0, Anion Gap 4 L, BUN 12, Creatinine 1.24 H, Estim Creat Clear Calc 33.39, Est GFR (MDRD) Af Amer 55 L, Est GFR (MDRD) Non-Af 45 L, BUN/Creatinine Ratio 9.7 L, Glucose 172 H, Calcium 8.1 L 10/17/19 05:45: POC Glucose 179 H Current Medications Acetaminophen (Tylenol) 650 mg PO Q6H PRN PRN PRN Reason: Pain Score 1-3/Temp > 100.7 F Last Admin: 10/17/19 05:44 Dose: 650 mg Documented by: Carvedilol (Coreg) 6.25 mg PO BID [facility] Last Admin: 10/16/19 22:09 Dose: 6.25 mg Documented by: Dextrose (D50w Syringe) 0 gm IV X1 PRN; Protocol PRN Reason: Hypoglycemia Glucagon () 1 mg IM .X1 PRN PRN Reason: Hypoglycemia Sodium Chloride () 1,000 mls @ 75 mls/hr IV .[id number] [facility] Last Admin: 10/16/19 22:14 Dose: 75 mls/hr Documented by: Sodium Chloride () 250 mls @ 15 mls/hr IV .[id number] PRN PRN Reason: Saline Flush Insulin Glargine (Lantus (Bkc)) 15 units SC QAM [facility] Last Admin: 10/16/19 08:03 Dose: Not Given Documented by: Insulin Glargine (Lantus (Bkc)) 15 units SC DINNER [facility] Last Admin: 10/16/19 17:22 Dose: 15 u Documented by: Insulin Human Lispro (Humalog Kwikpen (Bk)) 0 unit SC Q6 [facility]; Protocol Last Admin: 10/17/19 05:46 Dose: 1 u Documented by: Lisinopril (Zestril) 2.5 mg PO DAILY [facility] Last Admin: 10/16/19 14:14 Dose: 2.5 mg Documented by: Magnesium Oxide (Mag-Ox 400) 400 mg PO DAILYCM [facility] Last Admin: 10/16/19 08:04 Dose: Not Given Documented by: Ondansetron HCl (Zofran) 4 mg IV Q8H PRN PRN PRN Reason: NAUSEA/VOMITING Last Admin: 10/16/19 15:10 Dose: 4 mg Documented by: Sertraline HCl (Zoloft) 100 mg PO DAILY [facility] Last Admin: 10/16/19 14:09 Dose: 100 mg Documented by: Sodium Chloride () 10 - 40 ml IV UD PRN PRN Reason: SALINE FLUSH Last Admin: 10/15/19 05:14 Dose: 10 ml Documented by: Discharge Diet: 1800 Calorie Control Diet Discharge Activity: Return to Normal Activity Home Medications: Medications to take at Discharge Sertraline HCl 100 mg PO DAILY 05/07/19 Nateglinide 1 tab PO TID 07/22/19 carvedilol 6.25 mg tablet 6.25 mg PO BID #90 tab 09/06/19 lisinopril 2.5 mg tablet 2.5 mg PO DAILY #90 tab 09/06/19 magnesium oxide 400 mg (241.3 mg magnesium) tablet 400 mg PO DAILYCM #30 tab 09/06/19 torsemide 20 mg tablet 20 mg PO DAILY #60 tab 09/06/19 Insulin Glargine [Lantus SoloStar Pen] 15 units SUBCUT DINNER #1 pen 09/13/19 Insulin Glargine [Lantus SoloStar Pen] 15 units SUBCUT QAM #1 pen 09/13/19 Primary Care Physician: [facility] Doctor,Out of [NON-STAFF] - Please follow up with your Primary Care Physician in: in 1 week Please Follow Up With: Dejon Comer MD When: as scheduled Disposition: Home Minutes spent on discharge:: 35 Patient Condition:: Stable Medical Necessity - Tobacco Use Smoking Status: Never smoker Meaningful Use Info Meaningful Use Diagnoses (Choose all that apply): None applicable Code Visit Inpatient E&M: 81774 Disch Hosp
--- NOTE | 2019-10-17 09:55 | PCM.PN.SRG ---
Patient Problems: Active and Suspected Problems (Last Reviewed 10/15/19 @ 11:05 by Lona Wright PA-C) Rectal bleeding (Acute) Subjective: Patient evaluated resting comfortably in bed. She denies further bloody bowel movements. Findings from the colonoscopy included: - One 5 mm polyp in the descending colon, removed with a hot snare. Resected and retrieved. - Diverticulosis in the sigmoid colon. No specimens collected - Non-bleeding internal hemorrhoids. - Physical Exam Vitals/I&O's: Vital Signs Temp Pulse Resp BP Pulse Ox 98.0 F 65 16 126/60 H 94 10/17/19 02:05 10/17/19 04:35 10/17/19 02:05 10/17/19 02:05 10/17/19 07:24 Oxygen Delivery Method Room Air Weight: 257 lb 7.999 oz Body Mass Index (BMI) 47.0 Finger Stick Blood Glucose 88 Intake and Output for Last 24 Hours 10/15/19 10/16/19 10/17/19 23:59 23:59 23:59 Intake Total 4768.75 / 4768.75 2430.25 / 2730.25 1166.25 / 1166.25 Output Total 300 / 300 350 / 350 Balance 4468.75 / 4468.75 2430.25 / 2380.25 816.25 / 816.25 General: Alert, Oriented x3, Cooperative Abdomen: Bowel Sounds Present, Soft, Non Tender Laboratory Results 10/16/19 11:39: POC Glucose 138 H 10/16/19 16:16: POC Glucose 182 H 10/16/19 22:13: POC Glucose 218 H 10/17/19 05:16: WBC 5.4, RBC 4.12 L, Hgb 11.4 L, Hct 37.1, MCV 90.0, MCH 27.7, MCHC 30.7 L, RDW Std Deviation 56.6 H, RDW Coeff of Rahel 17.1 H, Plt Count 136 L, MPV 11.7, Immature Gran % (Auto) 0.600, Neut % (Auto) 70.5 H, Lymph % (Auto) 15.1 L, [place] % (Auto) 11.4 H, Eos % (Auto) 2.4, Baso % (Auto) 0.0, Absolute Neuts (auto) 3.8, Absolute Lymphs (auto) 0.82 L, Nucleated RBC % 0 10/17/19 05:16: Sodium 143, Potassium 4.2, Chloride 114 H, Carbon Dioxide 25.0, Anion Gap 4 L, BUN 12, Creatinine 1.24 H, Estim Creat Clear Calc 33.39, Est GFR (MDRD) Af Amer 55 L, Est GFR (MDRD) Non-Af 45 L, BUN/Creatinine Ratio 9.7 L, Glucose 172 H, Calcium 8.1 L 10/17/19 05:45: POC Glucose 179 H Current Medications Acetaminophen (Tylenol) 650 mg PO Q6H PRN PRN PRN Reason: Pain Score 1-3/Temp > 100.7 F Last Admin: 10/17/19 05:44 Dose: 650 mg Documented by: Carvedilol (Coreg) 6.25 mg PO BID [facility] Last Admin: 10/16/19 22:09 Dose: 6.25 mg Documented by: Dextrose (D50w Syringe) 0 gm IV X1 PRN; Protocol PRN Reason: Hypoglycemia Glucagon () 1 mg IM .X1 PRN PRN Reason: Hypoglycemia Sodium Chloride () 1,000 mls @ 75 mls/hr IV .[id number] [facility] Last Infusion: 10/17/19 09:47 Dose: Infused Documented by: Sodium Chloride () 250 mls @ 15 mls/hr IV .[id number] PRN PRN Reason: Saline Flush Insulin Glargine (Lantus (Bkc)) 15 units SC QAM [facility] Last Admin: 10/16/19 08:03 Dose: Not Given Documented by: Insulin Glargine (Lantus (Bkc)) 15 units SC DINNER [facility] Last Admin: 10/16/19 17:22 Dose: 15 u Documented by: Insulin Human Lispro (Humalog Kwikpen ([facility])) 0 unit SC Q6 [facility]; Protocol Last Admin: 10/17/19 05:46 Dose: 1 u Documented by: Lisinopril (Zestril) 2.5 mg PO DAILY [facility] Last Admin: 10/16/19 14:14 Dose: 2.5 mg Documented by: Magnesium [facility] (Mag-Ox 400) [facility] Last Admin: 10/16/19 08:04 Dose: Not Given Documented by: Ondansetron HCl (Zofran) 4 mg IV Q8H PRN PRN PRN Reason: NAUSEA/VOMITING Last Admin: 10/16/19 15:10 Dose: 4 mg Documented by: Sertraline HCl (Zoloft) 100 mg PO DAILY [facility] Last Admin: 10/16/19 14:09 Dose: 100 mg Documented by: Sodium Chloride () 10 - 40 ml IV UD PRN PRN Reason: SALINE FLUSH Last Admin: 10/15/19 05:14 Dose: 10 ml Documented by: Medical Necessity - Tobacco Use Smoking Status: Never smoker Assessment/Plan All Active Problems (Last Reviewed 10/15/19 @ 11:05 by Loan Wright PA-C) Rectal bleeding (Acute) I have been consulted in conjunction with Dr. Comer. Impression: Rectal bleeding, resolved Follow-up with Dr. Comer in 1 week Ready for discharge Code Visit Inpatient E&M: 62980 Subs Hosp L1
[2019-10-17 10:17] VITALS: BP 121/56; PULSE 71; RESP 18; TEMP 36.4; O2SAT 95
[2019-10-17] MEDS: Magnesium Oxide 400 MG Tablet PO (10:22)
[2019-10-17] MEDS: Carvedilol 6.25 MG Tablet PO (10:22)
[2019-10-17] MEDS: Sertraline 100 MG Tablet PO (10:23)
== END 2019-10-17 11:30 | disposition home or self-care (01) ==
LOC: ED 16:00 → MS3 18:08
PROVIDERS: Surgery; Admitting Provider Hospitalist; Emergency Provider Emergency Medicine; Referring Provider Hospitalist; Visit Provider Internal Medicine
PROC: 0DJD8ZZ Inspection of Lower Intestinal Tract, Via Natural or Artificial Opening Endoscopic (ICD-10-PCS; CPT 45378; principal; 2019-10-16 12:25)
DX: K62.5 Hemorrhage of anus and rectum (principal); I11.0 Hypertensive heart disease with heart failure; I50.23 Acute on chronic systolic (congestive) heart failure; E83.42 Hypomagnesemia; D12.4 Benign neoplasm of descending colon; K64.8 Other hemorrhoids; K57.30 Diverticulosis of large intestine without perforation or abscess without bleeding; E11.65 Type 2 diabetes mellitus with hyperglycemia; E11.22 Type 2 diabetes mellitus with diabetic chronic kidney disease; I13.0 Hypertensive heart and chronic kidney disease with heart failure and stage 1 through stage 4 chronic kidney disease, or unspecified chronic kidney disease; N18.3 Chronic kidney disease, stage 3 (moderate); F32.9 Major depressive disorder, single episode, unspecified; L30.4 Erythema intertrigo; Z79.899 Other long term (current) drug therapy; Z95.810 Presence of automatic (implantable) cardiac defibrillator; Z79.4 Long term (current) use of insulin; I42.8 Other cardiomyopathies
CPT/HCPCS: 45385; 36415; 80048; 82962; 83735; 85014; 85018; 85025; 85610; 86850; 86900; 86901; 88305; 93005; 96361; 96374; 96376; 97162; 97166; 99218; 99285; J7030; A4216; G0378; J2405

== ENCOUNTER 2020-01-17 18:16 | Emergency (ER) | payer MEDICARE, MEDICAID, SELFPAY ==
[2019-10-18 15:25] VITALS: BMI 47.0
[2020-01-17 18:17] VITALS: BP 131/69; PULSE 65; RESP 20; TEMP 36.6; O2SAT 96; BMI 54.8
--- NOTE | 2020-01-17 18:42 | RAD_ITS ---
STUDY: X-RAY - LEFT WRIST REASON FOR EXAM: Female, 69 years old. Trauma TECHNIQUE: 3 view(s) of the wrist were obtained. COMPARISON: None. FINDINGS: The bones of the wrist are diffusely demineralized making evaluation suboptimal. There is no displaced fracture or dislocation. There is irregular lucency in the distal fifth metacarpal. There are linear elongated lucencies in the other metacarpals and radius and ulna. There are vascular calcifications. RAD/Wrist min 3 Views IMPRESSION: 1. No acute osseous injury. 2. Osteoporosis. 3. Multiple lucent lesions, nonspecific appearance. This can be seen with systemic illness, such as multiple myeloma, or similar bone seeking abnormality. Electronically Signed: Nai Perez, at 19:50 EST Tel , Service support ,
--- NOTE | 2020-01-17 18:54 | ED.VIS.UPPEX ---
History of Present Illness Chief Complaint: Upper Extremity Injury Informant: Patient Occurred: Month(s) - 2 Mechanism/Context: Fall - Cannot remember details Timing: Continuous Quality of Pain: Aching Location: Left elbow and wrist Current Severity: Mild Maximum Severity: Moderate Worsened by: Certain movements Relieved by: Remaining still Associated Symptoms: Negative for: Parasthesia, Weakness, Loss of Funtion Narrative: Patient states the last injury/fall she had was 2 months ago. She has been having some persistent pain so outpatient x-rays of her left upper extremity were obtained today, her doctor called and told her to come to the ER because there was a fractured my hand. She is left-hand dominant. - Past Medical History (1) Essential (primary) hypertension Status: Chronic (2) History of implantable cardiac defibrillator (ICD) Status: Chronic (3) IDDM (insulin dependent diabetes mellitus) Status: Chronic (4) Non-ischemic cardiomyopathy Status: Chronic Past Medical History - Allergies and Home Meds Allergies/Adverse Reactions: Allergies No Known Allergies Allergy (Verified 01/17/20 18:19) Surgical History: - - ICD Placement Lives: With Family Smoking Status: Never smoker - Family History Maternal Family History: Family History (Last Updated 10/18/19 @ 15:23 by Yesenia Ayala) Father CAD (coronary artery disease) Family History: Reports: Dementia Paternal Family History: Family History (Last Updated 10/18/19 @ 15:23 by Yesenia Ayala) Father CAD (coronary artery disease) Family History: Reports: Cancer - lung Review of Systems General: Denies: Chills, Fever, Sweats Musculoskeletal: Reports: Extremity Pain. Denies: Neck pain, Back pain Skin: Denies: Rash, Wounds Neurological: Denies: Headache, Weakness, Numbness Physical Exam Vital Signs/Narrative: Vital Signs Temp Pulse Resp BP Pulse Ox 01/17/20 18:17 98 F 65 20 H 131/69 H 96 General: Well nourished, Well developed, Obese, - - NAD Head: Normocephalic, Atraumatic Extremeties: Tender at the ulnar aspect of the left wrist and at the radial head and lateral epicondyle of the left elbow. She has full range of motion without any limitations of all joints of the left upper extremity including the wrist. There are no other areas of focal bony tenderness. Skin: Normal color, No rash, No Trauma Neurological: Alert, Oriented x3, Cranial nerves II-XII grossly intact, Normal Strength, Normal Sensation Psychological: Normal affect, Normal Mood Diagnostic/Tx/Re-eval Clinical Impression(s) from Imaging Studies Wrist X-Ray 01/17/20 18:42 IMPRESSION: 1. No acute osseous injury. 2. Osteoporosis. 3. Multiple lucent lesions, nonspecific appearance. This can be seen with systemic illness, such as multiple myeloma, or similar bone seeking abnormality. Electronically Signed: Nai Perez, at 19:50 EST Tel , Service support , Elbow X-Ray 01/17/20 19:03 IMPRESSION: No acute osseous injury. Electronically Signed: Nai Perez, at 19:44 EST Tel , Service support , - Medical Decision Making I do not have access to the patient's x-rays that she had done as an outpatient so I obtain new ones of her wrist and elbow. They show no acute abnormality. Since she is moving them so well I do not think she needs to be splinted based on this, even if the small wrist ossifications are old fractures. Discussed this with the patient and she is comfortable being discharged home following up as an outpatient. ED Disposition - Plan for ED Patient: Disposition: Home or Assisted Living Diagnosis: Left wrist pain Instructions: Wrist Sprain Referrals: Doctor,Your [STAFF PHYSICIAN] - 1 Week if not improving
--- NOTE | 2020-01-17 19:03 | RAD_ITS ---
STUDY: X-RAY - LEFT ELBOW REASON FOR EXAM: Female, 69 years old. Trauma TECHNIQUE: 3 view(s) of the elbow. COMPARISON: None. FINDINGS: The bones of the elbow are intact and located. Mineralization is normal. Soft tissues are intact. There is no joint effusion. RAD/Elbow min 3 Views IMPRESSION: No acute osseous injury. Electronically Signed: Nai Perez, at 19:44 EST Tel , Service support ,
[2020-01-17 19:25] VITALS: PULSE 69; RESP 15; O2SAT 98
[2020-01-17 20:44] VITALS: PULSE 72; RESP 18; O2SAT 98
== END 2020-01-17 20:45 | disposition home or self-care (01) ==
PROVIDERS: Emergency Provider Emergency Medicine
DX: M25.532 Pain in left wrist (principal); E11.9 Type 2 diabetes mellitus without complications; I10 Essential (primary) hypertension; M81.0 Age-related osteoporosis without current pathological fracture; I42.8 Other cardiomyopathies; Z79.4 Long term (current) use of insulin; Z82.49 Family history of ischemic heart disease and other diseases of the circulatory system; Z95.810 Presence of automatic (implantable) cardiac defibrillator
CPT/HCPCS: 73080; 73110; 99282

== ENCOUNTER 2020-07-08 18:33 | Inpatient (IN) | payer MEDICARE, MEDICAID, SELFPAY ==
[2020-01-22 15:12] VITALS: BMI 47.9
[2020-07-08] VITALS (11 sets, daily range): BP systolic 132–181; BP diastolic 91–97; PULSE 89–107; RESP 19–34; TEMP 36.5–38.1; O2SAT 91–98; BMI 48.7; BMI 49.0
--- NOTE | 2020-07-08 18:47 | ED.RN ---
THIS NURSE CONTACTED [facility] FOR MEDICATION LIST TO BE FAXED. TAMIKA CONTACTED VINCE PER PATIENT REQUEST TO NOTIFY HER JESENIA IS HERE
--- NOTE | 2020-07-08 19:00 | ED.DCSUM_ITS ---
History of Present Illness Chief Complaint: General Illness Narrative: Patient presents with generalized weakness, fatigue, some shortness of breath and quite a bit of nausea, she is unable to eat or drink today. She lives by herself, she has a home health aide due to her limited mobility but has minimal other contacts. She denies any abdominal pain no lower extremity edema. She denies chest pain or back pain. She has no pleuritic component. Past Medical History - Allergies and Home Meds Allergies/Adverse Reactions: Allergies No Known Allergies Allergy (Verified 01/22/20 15:12) Primary Care Physician: NOT,DEFINED [NON-STAFF] - Past Medical History: - - Hypertension, hypercholesterolemia, diabetic, obese, bilateral knee replacements, generalized debility Surgical History: - - ICD Placement Lives: Alone Smoking Status: Never smoker - Family History Maternal Family History: Family History (Last Reviewed 01/22/20 @ 15:[address] Philipp Ybarra MD) Father CAD (coronary artery disease) Family History: Reports: Dementia Paternal Family History: Family History (Last Reviewed 01/22/20 @ 15:[address] Philipp Ybarra MD) Father CAD (coronary artery disease) Family History: Reports: Cancer - lung Review of Systems All systems negative except as indicated General: Denies: Fever Eyes: Denies: Visual changes - bilaterally Cardiovascular: Denies: Chest pain, Palpitations Respiratory: Reports: Dyspnea, Cough. Denies: Sputum Gastrointestinal: Reports: Nausea. Denies: Abdominal pain, Vomiting Musculoskeletal: Denies: Myalgias, Extremity Pain Skin: Denies: Rash Neurological: Reports: - - No focal weakness. Denies: Headache Endocrine: Denies: Polyuria Hematologic: Denies: Easy bruising, Easy bleeding Allergy: Denies: Uticaria Physical Exam Vital Signs/Narrative: Vital Signs Temp Pulse Resp BP Pulse Ox 07/08/20 18:48 98.0 F 107 H 22 H 181/94 H 91 07/08/20 18:35 98.0 F 107 H 22 H 181/94 H 07/08/20 18:34 92 General: - - Patient appears chronically ill however she appears comfortable in the bed. Head: Normocephalic, Atraumatic ENT: - - She has dry mucous membranes, tongue does not show any evidence of candidiasis Neck: Supple, Nontender Cardiovascular: Regular rate, Regular rhythm Respiratory: - - Bilateral wheezing however she speaks in full sentences she is not tachypneic and does not have any respiratory distress when I am in the room. Left chest wall pacemaker defibrillator scar which is old Abdomen: Soft, Nontender Back: Nontender, Normal Inspection Extremities: Nontender, No edema Skin: Normal color Neurological: Alert, Normal Strength, Normal Sensation Psychological: Normal affect Diagnostic/Tx/Re-eval - Rhythm Strip Rhythm Strip: Sinus Rhythm Rate: 97 Ectopy: None - EKG Initial EKG Interpretation: - - Normal sinus rhythm with a rate of 97. Normal ME and QTc intervals. Nonspecific changes throughout. Otherwise normal EKG Interpreted by emergency doctor - Medical Decision Making Patient has an unremarkable ED work-up although COVID is pending. The x-ray smith s show possible pneumonia therefore I will treat, she is clinically dehydrated and she is slightly improved with IV fluids, she did have some wheezing therefore I will give her some nebulizers because of her weakness and the fact that she lives alone and it is hard for her to ambulate now at home I will admit her she possibly has early pneumonia with her symptoms, she has not been hospitalized really suddenly, she will be treated as a community-acquired pneumonia. ED Disposition - Plan for ED Patient: Disposition: Acute Care Hospital [facility] Diagnosis: Shortness of breath, Weakness Referrals: NOT,DEFINED [NON-STAFF] -
--- NOTE | 2020-07-08 19:00 | EKG12_ITS ---
Test Reason : GEN ILL Blood Pressure : / mmHG Vent. Rate : 097 BPM Atrial Rate : 097 BPM P-R Int : 164 ms QRS Dur : 078 ms QT Int : 342 ms P-R-T Axes : 022 -19 024 degrees QTc Int : 434 ms Normal sinus rhythm Minimal voltage criteria for LVH, may be normal variant Inferior infarct (cited on or before 07-MAY-2019) Cannot rule out Anterior infarct , age undetermined Abnormal ECG Confirmed by SALVADOR BENNETT ([id number]), order editor JACK RAMOS ([id number]) on 07/10/2020 8:56:56 AM Referred By: KARINA Confirmed By:SALVADOR BENNETT
[2020-07-08 19:17] LABS: Absolute Lymphocyte Count 0.25 X10^3/uL (0.83-4.51); Basophil# 0.01 X10^3/uL; Basophil% 0.1 % (0-1); Eosinophil# 0.08 X10^3/uL; Hemoglobin 12.8 g/dL (12.0-15.0); Lymphocyte # 0.25 X10^3/ul (4.0); Lymphocyte % 3.1 % (19-41); Mean Corp Hgb Conc 31.2 g/dL (32-36); Mean Corpuscular Hgb 26.6 pg (27.0-32.0); Mean Corpuscular Volume 85.2 fL (81-99); Mean Platelet Vol. 11.1 fl (6.2-12.0); Monocyte% 8.6 % (0-10); NRBC Flagged by Analyzer 0 % (0-5); Neutrophil # 7.04 X10^3/uL (2.7-7.7); Neutrophil % 86.7 % (47-70); POSITIVE DIFFERENTIAL YES; Platelet Count 132 K/mm3 (150-450); RBC Distribution Width SD 46.4 fl (35.1-43.9); Red Blood Count 4.81 M/mm3 (4.2-5.4); White Blood Count 8.1 K/mm3 (4.4-11.0)
[2020-07-08] MEDS: Ondansetron 4 MG/2 ML Vial IV (19:25)
[2020-07-08 19:36] LABS: ALB/GLOB Ratio 0.7 RATIO (0.9-2.4); AST(SGOT) 22 U/L (15-37); Alanine Aminotransfer ALT/SGPT 20 U/L (13-56); Albumin, Serum 2.8 g/dL (3.2-5.0); Alkaline Phosphatase 177 U/L (45-117); Anion Gap 5 (5-15); BUN 15 mg/dL (7-18); Calcium,Total 8.9 mg/dL (8.5-10.1); Chloride 106 mmol/L (98-107); Creatinine, Serum 1.25 mg/dL (0.55-1.02); EST Glomerular Filtration Rate 45 mL/min (>60); Est Glom Filt Rate - Afr Amer 54 mL/min (>60); Estimated Creatinine Clearance 34.15 ml/min; Globulin 4.1 g/dL (2.2-4.2); Glucose 287 mg/dL (74-106); Potassium 4.1 mmol/L (3.5-5.1); Protein, Total 6.9 g/dL (6.4-8.2); Sodium Level 139 mmol/L (136-145)
--- NOTE | 2020-07-08 19:38 | RAD_ITS ---
STUDY: X-RAY CHEST REASON FOR EXAM: Female, 69 years old. SOB, HIGH BLOOD SUGAR TECHNIQUE: Single AP portable view of the chest. COMPARISON: 09/13/2019. FINDINGS: Low lung volumes. Nfez-za-mclixnda diffuse bilateral pulmonary density. Probable mild congestion and interstitial edema although patchy atelectasis and infiltrates are not excluded. No gross effusions. Moderate cardiomegaly. Pacemaker lead terminates in the right ventricle. There is atherosclerotic calcification of the aortic arch with tortuosity. There are diffuse degenerative changes of the visualized thoracic spine. Normal visualized ribs, clavicles, and shoulders. There is no demonstrated abnormality of the visualized soft tissue structures of the upper abdomen. RAD/Chest 1 View (Portable) IMPRESSION: Very low lung volumes. Probable mild congestion and interstitial edema. Multifocal atelectasis and/or infiltrates not excluded. Electronically Signed: Maurice Barnett MD at 20:00 EDT , Service support ,
[2020-07-08 19:44] LABS: Mucous, Urine 0 SEEN /hpf (<or=2+); Squamous Epithelial Cells - UA 0 SEEN /hpf (5-10); White Blood Cells 0 SEEN /hpf (0-5)
[2020-07-08 19:48] LABS: Color, Urine Yellow (Yellow); Glucose, Dipstick 250 mg/dl (Normal); Ketone-Dipstick Negative (Negative); Leukocyte Esterase-Dipstick Negative /ul (Negative); Nitrite-Dipstick Negative (Negative); Occult Blood-Urine 150 /ul (Negative); Protein-Dipstick 500 mg/dl (Negative); Urine Bilirubin Dipstick Negative (Negative); Urine Clarity Clear (Clear); Urine Urobilinogen Normal (Normal)
[2020-07-08 19:49] LABS: Differential Indicated SCAN CRITERIA MET; International Normalized Ratio 1.1; Prothrombin Time (Protime)PT. 13.7 SECONDS (11.7-14.9)
[2020-07-08 19:53] LABS: Amorphous Sediment 1+; Bacteria 1+ /hpf (None Seen); Red Blood Cells-Urine 0-5 SEEN /hpf (0-5)
[2020-07-08 20:28] LABS: BNP,B-Type NATRIURETIC PEPTIDE 266.7 pg/mL (0-100)
--- NOTE | 2020-07-08 20:31 | HP.PCM_ITS ---
Problem List (1) Pneumonia due to COVID-19 virus Status: Acute (2) Weakness Status: Acute (3) Rectal bleeding Status: Acute (4) IDDM (insulin dependent diabetes mellitus) Status: Chronic (5) Non-ischemic cardiomyopathy Status: Chronic (6) Essential (primary) hypertension Status: Chronic (7) History of implantable cardiac defibrillator (ICD) Status: Chronic (8) Chronic systolic heart failure Status: Chronic History of Present Illness Date of Admission: 07/08/20 Chief Complaint: Shortness of breath, generalized weakness for 4 days The patient is a 69 year old F with history of chronic systolic heart failure status post AICD, nonischemic cardiomyopathy came to ED with shortness of breath, generalized weakness, fever with chills for last 4 days. Patient also has dry cough, nausea last 4 days. She also vomited, gastric content 1 time today. Loss appetite but denies loss of taste or smell. She took her temperature at home and was 97.5. In ED, her heart rate was 107/min, blood pressure 121/94, respiratory rate 22/min, pulse ox 91% on room air. Temperature 100.4 ?F. She tested positive for COVID-19 in ED. Basic labs shows normal WBC count, plat elet count 12/13/1999. ALC 0.25 thousand. Troponin normal. BNP 266. UA negative for pyuria. LE and nitrite negative. Patient denies dysuria. Patient denies weight gain but on the contrary lost about 5 to 6 pounds in 1 month. On torsemide at home. No significant leg swelling Patient denies history of chronic smoking or COPD or emphysema. Chest x-ray done in the ER shows low lung volume with mild congestion, multifocal atelectasis and infiltrates although chest x-ray is not optimal quality. Patient WAS given 500 normal saline bolus, 1 dose of Rocephin and Zithromax and admitted on COVID floor Past Medical History Past Medical History (Chronic Problems): Chronic Problems (Last Reviewed 01/22/20 @ 15:[address] Philipp Ybarra MD) Chronic systolic heart failure (Chronic) IDDM (insulin dependent diabetes mellitus) (Chronic) Non-ischemic cardiomyopathy (Chronic) Essential (primary) hypertension (Chronic) History of implantable cardiac defibrillator (ICD) (Chronic) Medical History: Medical History (Last Reviewed 01/22/20 @ 15:[address] Philipp Ybarra MD) Non-ischemic cardiomyopathy (Chronic) I42.8 Essential (primary) hypertension (Chronic) I10 Acute on chronic systolic CHF (congestive heart failure) (Chronic) I50.23 Depression F32.9 Severe intertrigo Stage III chronic kidney disease N18.3 Type 2 diabetes mellitus E11.9 Allergies No Known Allergies Allergy (Verified 01/22/20 15:12) Home Medications: Ambulatory Orders Medication Instructions Recorded Sertraline HCl 100 mg PO DAILY 05/07/19 Nateglinide 60 mg PO TIDCM 07/22/19 Magnesium Oxide [Mag-Ox 400] 400 mg PO DAILY 01/17/20 Atorvastatin Calcium [Lipitor] 20 mg PO QHS 07/08/20 Carvedilol 12.5 mg PO BID 07/08/20 Cholecalciferol (Vitamin D3) 5,000 unit PO DAILY 07/08/20 [Vitamin D3] Guaifenesin [Mucinex] 600 mg PO BID PRN PRN 07/08/20 Insulin Glargine,Hum.rec.anlog 20 unit SQ BID 07/08/20 [Lantus Solostar] Lisinopril 5 mg PO DAILY 07/08/20 Nystatin Powder [Mycostatin Powder] 1 applic TOPICAL 4X/DAY PRN 07/08/20 Torsemide 20 mg PO DAILY 07/08/20 Surgical History: Surgical History (Last Reviewed 01/22/20 @ 15:[address] 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 Philipp Ybarra MD) Father CAD (coronary artery disease) History Items: Dementia Paternal Family History: Family History (Last Reviewed 01/22/20 @ 15:[address] Philipp Ybarra MD) Father CAD (coronary artery disease) History Items: Cancer - lung Review of Systems Constitutional: Reports: Anorexia, Chills, Fever, Malaise, Weakness, Fatigue HEENT: Denies: Head Aches, Sinus Congestion, Sinus Drainage Cardiovascular: Denies: Chest Pain, Palpitations Respiratory: Reports: Cough, Shortness of breath at rest, Shortness of breath upon exertion. Denies: Sputum production Gastrointestinal: Reports: Nausea, Vomiting. Denies: Abdominal Pain, Constipation, Diarrhea, Hematemesis, Hematochezia, Melena Genitourinary: Denies: Dysuria, Frequency Musculoskeletal: Reports: Joint Pain. Denies: Joint Tenderness Skin: Denies: Rash, Wounds Neurological: Denies: Numbness, Tingling, Focal weakness Psychiatric: Denies: Anxiety, Depression, Homicidal Ideations, Suicidal Ideations Hematologic/ Lymphatic: Denies: Easy Bruising, Easy Bleeding VTE Information - Inpt Only VTE Present on Admission: No VTE Mechan Device Prophylaxis: None VTE Pharm Prophylaxis ordered?: Yes - Physical Exam Vitals/I&O's: Vital Signs Temp Pulse Resp BP Pulse Ox 98.8 F 91 34 H 164/95 H 96 07/08/20 19:25 07/08/20 19:25 07/08/20 19:25 07/08/20 19:25 07/08/20 19:25 Oxygen Flow Rate (L/min) 2 Oxygen Delivery Method Nasal Cannula Weight: 275 lb 2.19 oz Body Mass Index (BMI) 48.7 Finger Stick Blood Glucose 88 Intake and Output for Last 24 Hours 07/06/20 07/07/20 07/08/20 23:59 23:59 23:59 Intake Total 500 / 500 Balance 500 / 500 Laboratory Results 07/08/20 18:15: WBC 8.1, RBC 4.81, Hgb 12.8, Hct 41.0, MCV 85.2, MCH 26.6 L, MCHC 31.2 L, RDW Std Deviation 46.4 H, RDW Coeff of Rahel 15.0 H, Plt Count 132 L, MPV 11.1, Immature Gran % (Auto) 0.500, Neut % (Auto) 86.7 H, Lymph % (Auto) 3.1 L, [place] % (Auto) 8.6, Eos % (Auto) 1.0, Baso % (Auto) 0.1, Absolute Neuts (auto) 7.0, Absolute Lymphs (auto) 0.25 L, Nucleated RBC % 0, Differential Comment COMMENT 07/08/20 18:15: PT 13.7, INR 1.1 07/08/20 18:15: Sodium 139, Potassium 4.1, Chloride 106, Carbon Dioxide 28.0, Anion Gap 5, BUN 15, Creatinine 1.25 H, Estim Creat Clear Calc 34.15, Est GFR (MDRD) Af Amer 54 L, Est GFR (MDRD) Non-Af 45 L, BUN/Creatinine Ratio 12.0, Glucose 287 H, Calcium 8.9, Total Bilirubin 0.70, AST 22, ALT 20, Alkaline Phosphatase 177 H, Troponin I < 0.015, Total Protein 6.9, Albumin 2.8 L, Globulin 4.1, Albumin/Globulin Ratio 0.7 L 07/08/20 18:15: B-Natriuretic Peptide 266.7 H 07/08/20 19:10: COVID-19 (JONAS) Pending 07/08/20 19:35: Urine Color Yellow, Urine Clarity Clear, Urine pH 6.0, Ur Specific [place] 1.020, Urine Protein 500 H, Urine Glucose (UA) 250 H, Urine Ketones Negative, Urine Occult Blood 150 H, Urine Nitrite Negative, Urine Bilirubin Negative, Urine Urobilinogen Normal, Ur Leukocyte Esterase Negative, Urine RBC 0-5 SEEN, Urine WBC 0 SEEN, Ur Squamous Epith Cells 0 SEEN, Amorphous Sediment 1+, Urine Bacteria 1+, Urine Mucus 0 SEEN Current Medications Azithromycin 500 mg/ Dextrose 255 mls @ 250 mls/hr IV X1 ONE Stop: 07/08/20 21:20 Ceftriaxone Sodium (Rocephin) 1 gm in 50 mls @ 100 mls/hr IV X1 ONE Stop: 07/08/20 20:48 Assessment/Plan All Active Problems (Last Reviewed 01/22/20 @ 15:[address] Philipp Ybarra MD) Weakness (Acute) Pneumonia due to COVID-19 virus (Acute) Rectal bleeding (Acute) The patient is a 69 year old F with history of chronic systolic heart failure status post AICD, nonischemic cardiomyopathy came to ED with shortness of breath, generalized weakness, fever with chills for last 4 days and COVID-19 PCR positive, chest x-ray findings consistent with COVID-19 pneumonia. Chest x-ray done in the ER shows low lung volume with mild congestion, multifocal atelectasis and infiltrates although chest x-ray is not optimal quality. 1. Bilateral COVID-19 pneumonia with acute hypoxic respiratory insufficiency: Patient is being admitted on COVID-cohort floor. Continue IV Rocephin and Zithromax as started in ER. IV fluid normal saline 75 mils per hour for 1 L with intake and output monitoring, daily weight check and discontinue a fluid overload. COVID-19 lab work ordered including pro calcitonin, lactic acid, inflammatory markers, respiratory panel, sputum culture and blood culture. ID consult. D-dimer ordered. Lovenox 40 mg subcu every 12 hourly. 2. Chronic systolic heart failure with mild to moderate coronary artery disease with predominant nonischemic cardiomyopathy status post AICD: Patient had a heart cath in 2016 which shows 30 to 40% LAD and mid RCA, 60 to 70% and ostial LCD 30%. 2D echo as mentioned below. Patient does not seem fluid overload or crackles or clinically acute CHF. EKG shows normal sinus rhythm at 97 bpm with mild LVH. Old inferior infarct. Echo April 2019 Mildly dilated left ventricle. Severe segmental systolic dysfunction (see wall motion). The estimated ejection fraction is 20 %. The left atrium appears enlarged. Trivial mitral valve insufficiency. Trivial tricuspid valve insufficiency. Mild focal aortic valve calcification. Continue home medications including torsemide, lisinopril, Coreg. Patient not on antiplatelet agent at home. 3. Recent admission for acute lower GI bleed secondary to diverticular bleed: Patient was last admitted in October 2019 for rectal bleed secondary to diverticulosis. Patient had colonoscopy by Dr. Comer which showed 1 5 mm polyp in descending colon was removed. Diverticulosis in sigmoid colon. Nonbleeding internal hemorrhoids. 4. Diabetes mellitus type 2 uncontrolled with A1c of 12.2 in July 2019. Glucose is uncontrolled in BMP, 287. Continue Lantus 20 units twice daily. Accu-Chek before meals and at bedtime cover with Humalog sliding scale. A1c tomorrow a.m. 5. Hypertension, uncontrolled: Blood pressure is 156/91. Monitor blood pressure and titrate the dose of lisinopril accordingly. 6. Chronic kidney disease stage III: Patient serial creatinine is a stable since October 2019, average 1.24. 7. Depression ~ on SSRI; continued 8. DVT prophylaxis On Lovenox 40 mils subcu twice daily. Clinical Impression(s) from Imaging Studies Chest X-Ray 07/08/20 19:38 IMPRESSION: Very low lung volumes. Probable mild congestion and interstitial edema. Multifocal atelectasis and/or infiltrates not excluded. Inpatient E&M: 33708 Init Hosp L3
[2020-07-08 20:43] LABS: Probe Check PASS
[2020-07-08] MEDS: Ceftriaxone 1 GM/50 ML BAG IV (20:45)
[2020-07-08] MEDS: Ipratropium/Albuterol Sulfate 3 ML AMPUL.NEB INHALATION (21:07)
--- NOTE | 2020-07-08 22:06 | ED.RN ---
zithromax taken to the floor as ceftriaxone was not yet complete running, RN rebekah aware that zithromax was brought up with the pt.
[2020-07-08] MEDS: 0.9% Normal Saline 1,000 ML 75 ML IV (23:01)
[2020-07-08] MEDS: Atorvastatin Calcium 20 MG Tablet PO (23:04)
[2020-07-08] MEDS: Enoxaparin 40 MG/0.4 ML Syringe SC (23:04)
[2020-07-08] MEDS: guaiFENesin 1,200 MG Tablet 1200 MG PO (23:04)
[2020-07-08] MEDS: Carvedilol 12.5 MG Tablet PO (23:10)
[2020-07-08] MEDS: Insulin Lispro 100 UNIT/ML INSULN.PEN SC (23:11)
[2020-07-08 23:33] LABS: International Normalized Ratio 1.2; Prothrombin Time (Protime)PT. 14.9 SECONDS (11.7-14.9)
[2020-07-08 23:35] LABS: D-Dimer Quantitative (DVT/PE) 1.16 FEU/ug/m (0.27-0.49)
[2020-07-08 23:53] LABS: Procalcitonin 0.24 ng/mL (0.00-0.09)
[2020-07-09] VITALS (13 sets, daily range): BP systolic 117–146; BP diastolic 51–71; PULSE 58–96; RESP 17–20; TEMP 36.4–37.3; O2SAT 94–97
[2020-07-09 00:21] LABS: CPK Total, Creatine Kinase 138 U/L (26-192); LDH 284 U/L (84-246)
[2020-07-09 00:51] LABS: Bedside Glucose 261 mg/dL (70-110)
[2020-07-09 04:41] LABS: Absolute Lymphocyte Count 0.42 X10^3/uL (0.83-4.51); Basophil# 0.01 X10^3/uL; Basophil% 0.2 % (0-1); Eosinophil# 0.04 X10^3/uL; Eosinophils% 0.6 % (0-5); Hematocrit 35.2 % (37-47); Hemoglobin 11.2 g/dL (12.0-15.0); Lymphocyte # 0.42 X10^3/ul (4.0); Lymphocyte % 6.6 % (19-41); Mean Corp Hgb Conc 31.8 g/dL (32-36); Mean Corpuscular Hgb 27.3 pg (27.0-32.0); Mean Corpuscular Volume 85.9 fL (81-99); Mean Platelet Vol. 11.4 fl (6.2-12.0); Monocyte# 0.78 X10^3/uL; Monocyte% 12.3 % (0-10); NRBC Flagged by Analyzer 0 % (0-5); Neutrophil # 5.04 X10^3/uL (2.7-7.7); Neutrophil % 79.7 % (47-70); POSITIVE DIFFERENTIAL YES; Platelet Count 114 K/mm3 (150-450); RBC Distribution Width CV 15.1 % (11.6-14.6); RBC Distribution Width SD 46.7 fl (35.1-43.9); White Blood Count 6.3 K/mm3 (4.4-11.0)
[2020-07-09 04:56] LABS: Differential Indicated SCAN CRITERIA MET
[2020-07-09 05:02] LABS: Anion Gap 4 (5-15); BUN 16 mg/dL (7-18); BUN/Creat Ratio 13.9 RATIO (10-20); Calcium,Total 8.1 mg/dL (8.5-10.1); Chloride 107 mmol/L (98-107); Creatinine, Serum 1.15 mg/dL (0.55-1.02); EST Glomerular Filtration Rate 49 mL/min (>60); Est Glom Filt Rate - Afr Amer 60 mL/min (>60); Estimated Creatinine Clearance 35.49 ml/min; Glucose 143 mg/dL (74-106); Magnesium 1.4 mg/dL (1.6-2.6); Potassium 3.9 mmol/L (3.5-5.1); Sodium Level 140 mmol/L (136-145)
[2020-07-09 05:08] LABS: Differential Comment SCANNED
--- NOTE | 2020-07-09 08:12 | PCM.PN.HOSP ---
Patient Problems: Active and Suspected Problems (Last Reviewed 01/22/20 @ 15:[address] Philipp Ybarra MD) Weakness (Acute) Shortness of breath (Acute) Subjective: Pt states that she is feeling ok. Still feels wheezy but overall stable. Denies having the dx of JAMAR. Wants to go home. Eating breakfast. Vitals/I&O's: Vital Signs Temp Pulse Resp BP Pulse Ox 99.2 F H 84 20 H 146/71 H 94 07/09/20 07:55 07/09/20 07:55 07/09/20 07:55 07/09/20 07:55 07/09/20 07:55 Oxygen Flow Rate (L/min) 2 Oxygen Delivery Method Nasal Cannula Weight: 122 kg Body Mass Index (BMI) 49.0 Finger Stick Blood Glucose 88 Intake and Output for Last 24 Hours 07/07/20 07/08/20 07/09/20 23:59 23:59 23:59 Intake Total 671.25 / 671.25 255 / 255 Balance 671.25 / 671.25 255 / 255 General: Alert, Oriented x3, Cooperative, No apparent distress, Well developed, Well nourished HEENT: Atraumatic, PERRLA, EOMI, Normocephalic, TM's Clear Oral: Moist Mucosa, No Gingival or Mucosal Lesions/ Ulcerations, - - Mallampati 3-4 Neck: Supple, No JVD, Negative Carotid Bruits, Negative Hepatojugular Reflux, No Nodes, No Nuchal Rigidity, Trachea Midline Lungs: No rhonchi, No rales, Diminished - diffusely, Wheezes - scatterted Cardiovascular: Regular rate, Regular Rhythm, Normal S1, Normal S2, No murmurs, No Ectopic Activity, No rub noted, No Gallop Abdomen: Bowel Sounds Present, Soft, Non Tender, Non-Distended, No Hepato-splenomegaly, No hernias noted Extremities: No clubbing, No cyanosis, No edema Skin: No rashes, No breakdown Musculoskeletal: No Tenderness to Palpation of Joints or Extremities, No Muscle Wasting Lymphatic: No Cervical, Supraclavicular, or Inguinal Adenopathy Neurological: Cranial nerves II-XII grossly intact, Deep Tendon Reflexes 2+/4 and Symmetrical, Neuro grossly intact, Motor Exam 5/5 strength throughout, Muscle tone normal, Coordination normal Psych/Mental Status: Normal Affect, Appropriate, Alert and oriented to time, place, person, mood and affect Microbiology Past 72 Hours 07/08/20 19:35 Urine, Random Streptococcus pneumoniae Antigen (M - Final 07/08/20 19:35 Urine, Random Legionella Antigen - Final 07/08/20 19:10 Mucosa - Nasopharyngeal Respiratory Panel (PCR) - Final Laboratory Results 07/08/20 18:15: WBC 8.1, RBC 4.81, Hgb 12.8, Hct 41.0, MCV 85.2, MCH 26.6 L, MCHC 31.2 L, RDW Std Deviation 46.4 H, RDW Coeff of Rahel 15.0 H, Plt Count 132 L, MPV 11.1, Immature Gran % (Auto) 0.500, Neut % (Auto) 86.7 H, Lymph % (Auto) 3.1 L, [place] % (Auto) 8.6, Eos % (Auto) 1.0, Baso % (Auto) 0.1, Absolute Neuts (auto) 7.0, Absolute Lymphs (auto) 0.25 L, Nucleated RBC % 0, Differential Comment COMMENT 07/08/20 18:15: PT 13.7, INR 1.1 07/08/20 18:15: Sodium 139, Potassium 4.1, Chloride 106, Carbon Dioxide 28.0, Anion Gap 5, BUN 15, Creatinine 1.25 H, Estim Creat Clear Calc 34.15, Est GFR (MDRD) Af Amer 54 L, Est GFR (MDRD) Non-Af 45 L, BUN/Creatinine Ratio 12.0, Glucose 287 H, Calcium 8.9, Total Bilirubin 0.70, AST 22, ALT 20, Alkaline Phosphatase 177 H, Troponin I < 0.015, Total Protein 6.9, Albumin 2.8 L, Globulin 4.1, Albumin/Globulin Ratio 0.7 L 07/08/20 18:15: B-Natriuretic Peptide 266.7 H 07/08/20 19:10: COVID-19 (JONAS) Positive 07/08/20 19:35: Urine Color Yellow, Urine Clarity Clear, Urine pH 6.0, Ur Specific Porter 1.020, Urine Protein 500 H, Urine Glucose (UA) 250 H, Urine Ketones Negative, Urine Occult Blood 150 H, Urine Nitrite Negative, Urine Bilirubin Negative, Urine Urobilinogen Normal, Ur Leukocyte Esterase Negative, Urine RBC 0-5 SEEN, Urine WBC 0 SEEN, Ur Squamous Epith Cells 0 SEEN, Amorphous Sediment 1+, Urine Bacteria 1+, Urine Mucus 0 SEEN 07/08/20 22:45: PT 14.9, INR 1.2, D-Dimer Quant (PE/DVT) 1.16 H* 07/08/20 22:45: Lactate Dehydrogenase 284 H, Total Creatine Kinase 138, C-React Prot Ext Range 102.00 H 07/08/20 22:45: Lactic Acid 1.0 07/08/20 22:45: Procalcitonin 0.24 H 07/08/20 22:49: POC Glucose 261 H 07/09/20 04:25: WBC 6.3, RBC 4.10 L, Hgb 11.2 L, Hct 35.2 L, MCV 85.9, MCH 27.3, MCHC 31.8 L, RDW Std Deviation 46.7 H, RDW Coeff of Rahel 15.1 H, Plt Count 114 L, MPV 11.4, Immature Gran % (Auto) 0.600, Neut % (Auto) 79.7 H, Lymph % (Auto) 6.6 L, [place] % (Auto) 12.3 H, Eos % (Auto) 0.6, Baso % (Auto) 0.2, Absolute Neuts (auto) 5.0, Absolute Lymphs (auto) 0.42 L, Nucleated RBC % 0, Differential Comment SCANNED 07/09/20 04:25: Sodium 140, Potassium 3.9, Chloride 107, Carbon Dioxide 29.0, Anion Gap 4 L, BUN 16, Creatinine 1.15 H, Estim Creat Clear Calc 35.49, Est GFR (MDRD) Af Amer 60, Est GFR (MDRD) Non-Af 49 L, BUN/Creatinine Ratio 13.9, Glucose 143 H, Calcium 8.1 L, Magnesium 1.4 L Current Medications Acetaminophen (Tylenol) 650 mg PO Q6H PRN PRN PRN Reason: Pain Score 1-10/Temp > 100.7 F Al Hydroxide/Mg Hydroxide (Mylanta Ii) 30 ml PO Q6H PRN PRN PRN Reason: Gastric Burning Albuterol Sulfate (Proair Hfa (Sp) Surgery/Vent Pts) 1 puff INHALATION Q2H PRN PRN PRN Reason: SHORTNESS OF BREATH/WHEEZING Atorvastatin Calcium (Lipitor) 20 mg PO QHS [facility] Last Admin: 07/08/20 23:04 Dose: 20 mg Documented by: Carvedilol (Coreg) 12.5 mg PO BID [facility] Last Admin: 07/08/20 23:10 Dose: 12.5 mg Documented by: Cholecalciferol (Vitamin D (25mcg)) 5,000 unit PO DAILY [facility] Dextrose (D50w Syringe) 0 gm IV X1 PRN; Protocol PRN Reason: Hypoglycemia Enoxaparin Sodium (Lovenox) 40 mg SC BID [facility] Last Admin: 07/08/20 23:04 Dose: 40 mg Documented by: Furosemide (Lasix) 40 mg PO DAILY [facility] Glucagon () 1 mg IM .X1 PRN PRN Reason: Hypoglycemia Guaifenesin (Mucinex) 1,200 mg PO BID [facility] Last Admin: 07/08/20 23:04 Dose: 1,200 mg Documented by: Sodium Chloride () 1,000 mls @ 75 mls/hr IV .[id number] [facility] Stop: 07/09/20 11:17 Last Infusion: 07/09/20 00:03 Dose: 75 mls/hr Documented by: Sodium Chloride () 250 mls @ 15 mls/hr IV .[id number] PRN PRN Reason: Additional IVPB Infusion Insulin Glargine (Lantus (Bkc)) 20 units SC BID [facility] Last Admin: 07/08/20 23:04 Dose: 20 u Documented by: Insulin Human Lispro (Humalog Kwikpen (Bkc)) 0 unit SC 4X[facility]; Protocol Last Admin: 07/09/20 07:54 Dose: Not Given Documented by: Lisinopril (Zestril) 5 mg PO DAILY [facility] Magnesium Oxide (Mag-Ox 400) 400 mg PO DAILY [facility] Morphine Sulfate () 2 mg IV Q3H PRN PRN PRN Reason: Pain Score 6-10/10 Nitroglycerin (Nitrostat) 0.4 mg SUBLINGUAL Q5M PRN PRN Reason: CARDIAC/CHEST PAIN Nystatin (Mycostatin Powder) 1 applic TOPICAL 4X/DAY PRN PRN; Protocol PRN Reason: SKIN Oxycodone HCl (Oxyir) 5 mg PO Q4H PRN PRN PRN Reason: Pain Score 4-5/10 Prochlorperazine Edisylate (Compazine Iv) 5 mg IV Q4H PRN PRN PRN Reason: Breakthrough nausea/vomiting Senna/Docusate Sodium (Senokot-S, Brittney-Colace) 2 tablet PO BID PRN PRN PRN Reason: Constipation Sertraline HCl (Zoloft) 100 mg PO DAILY SUNNY Sodium Chloride () 10 - 40 ml IV UD PRN PRN Reason: SALINE FLUSH STROKE Vital Signs/Narrative: Vital Signs Temp Pulse Resp BP Pulse Ox 07/09/20 07:55 99.2 F H 84 20 H 146/71 H 94 07/09/20 06:30 97 07/09/20 04:30 98.7 F 80 20 H 117/51 L 97 Medical Necessity - Tobacco Use Smoking Status: Never smoker Assessment/Plan All Active Problems (Last Reviewed 01/22/20 @ 15:[address] Philipp Ybarra MD) Weakness (Acute) Pneumonia due to COVID-19 virus (Acute) Shortness of breath (Acute) Rectal bleeding (Acute) Acute Respiratory Insufficiency 2/2 COVID-19 PNA -on 2 L nasal cannula with SpO2 94-97% -at baseline on RA -start Decadron 6 mg daily as pt is requiring supplemental O2 (day 1/5) -await ID for convalescent plasma and remdesivir recommendations as pt sats thus far stable on minimal supplemental O2 -monitor closely -Pt is at high risk for progression given her current comorbidities -start therapeutic Lovenox dosing 120 BID -CXR shows patchy B infiltrates -no need for empiric ABX at this time (did get Azithro and CTX in ED) -ID consulted -will consult Pulm HFrEF-compensated/CAD/ICM/HTN/HPL -[facility] 2015 showed 30 to 40% LAD and mid RCA, 60 to 70% and ostial LCD 30% -ECHO with severe segmental WMA/EF 20% -continue torsemide/Lisinopril/Coreg -monitor for s/o worsening failure Recent LGIB 2/2 Diverticular Bleed -10/2019 -c-scope done at that time--> removal of 1.5 cm polyp in descending colon -monitor closely with Full dose Lovenox DM-2 Uncontrolled -A1c was 12.2 in 07/2019 -on Lantus 20 mg BID -with steroids will need higher doses -increase to 35 mg BID -continue SSI and will likely need scheduled insulin with meals -monitor for dosing needs with changes in lantus and steroids -continue Lipitor Mild Anemia -likely dilutional -monitor hbg -no s/o blood loss CKD Stage 3 -sCr at baseline -will monitor -was given 1 L of IVF that is almost completed Depression -continue Zoloft MO -BMI 49.2 -recommend wgt loss DVT prophylaxis -therapeutic dose Lovenox Code Status -will clarify with pt
[2020-07-09] MEDS: Furosemide 40 MG Tablet PO (10:00)
[2020-07-09] MEDS: dexAMETHasone 4 MG Tablet 6 MG PO (10:00)
[2020-07-09] MEDS: Magnesium Oxide 400 MG Tablet PO (10:01)
[2020-07-09] MEDS: Sertraline 100 MG Tablet PO (10:01)
[2020-07-09] MEDS: Carvedilol 12.5 MG Tablet PO ×2 (10:01→21:39)
[2020-07-09] MEDS: Lisinopril 5 MG Tablet PO (10:01)
[2020-07-09] MEDS: guaiFENesin 1,200 MG Tablet 1200 MG PO ×2 (10:05→21:39)
[2020-07-09] MEDS: proCHLORPERazine 10 MG/2 ML Vial 5 MG IV (10:55)
[2020-07-09] MEDS: Insulin Lispro 100 UNIT/ML INSULN.PEN SC ×3 (10:59→21:42)
[2020-07-09 12:16] LABS: Bedside Glucose 210 mg/dL (70-110)
--- NOTE | 2020-07-09 13:29 | CON.PCM_ITS ---
Reason for Consult Date of Consultation: 07/09/20 Reason for Consultation: Acute respiratory insufficiency History of Present Illness: The patient is a 69-year-old female, with a history as outlined below, who presented to the emergency department on July 08 with complaints of generalized malaise, shortness of breath and cough. The patient does have a history of nonischemic cardiomyopathy, chronic systolic heart failure and hypertension. Her last surface echocardiogram revealed an ejection fraction of approximately 20%. On presentation to the emergency department, the patient was noted to be afebrile and a bit hypertensive. Laboratory evaluation revealed a normal white blood cell count. Coagulation profile was within normal limits. D-dimer was mildly elevated at 1.16. Chemistry profile was notable for a creatinine of 1.25. Troponin was negative. Procalcitonin was elevated to 0.24. Urine analysis was unremarkable. Coronavirus PCR was positive. Chest x-ray was of poor inspiratory effort and revealed probable pulmonary vascular congestion. The patient did initially receive supplemental IV fluids and antimicrobials. She was then admitted to the medical intensive care unit for further management of her acute coronavirus infection. Past Medical History Past Medical History (Chronic Problems): Chronic Problems (Last Reviewed 01/22/20 @ 15:[address] Philipp Ybarra MD) Chronic systolic heart failure (Chronic) IDDM (insulin dependent diabetes mellitus) (Chronic) Non-ischemic cardiomyopathy (Chronic) Essential (primary) hypertension (Chronic) History of implantable cardiac defibrillator (ICD) (Chronic) Medical History: Medical History (Last Reviewed 01/22/20 @ 15:[address] Philipp Ybarra MD) Non-ischemic cardiomyopathy (Chronic) I42.8 Essential (primary) hypertension (Chronic) I10 Depression F32.9 Severe intertrigo Stage III chronic kidney disease N18.3 Type 2 diabetes mellitus E11.9 Allergies No Known Allergies Allergy (Verified 01/22/20 15:12) Home Medications: Ambulatory Orders Medication Instructions Recorded Sertraline HCl 100 mg PO DAILY 05/07/19 Nateglinide 60 mg PO TIDCM 07/22/19 Magnesium Oxide [Mag-Ox 400] 400 mg PO DAILY 01/17/20 Atorvastatin Calcium [Lipitor] 20 mg PO QHS 07/08/20 Carvedilol 12.5 mg PO BID 07/08/20 Cholecalciferol (Vitamin D3) 5,000 unit PO DAILY 07/08/20 [Vitamin D3] Guaifenesin [Mucinex] 600 mg PO BID PRN PRN 07/08/20 Insulin Glargine,Hum.rec.anlog 20 unit SQ BID 07/08/20 [Lantus Solostar] Lisinopril 5 mg PO DAILY 07/08/20 Nystatin Powder [Mycostatin Powder] 1 applic TOPICAL 4X/DAY PRN 07/08/20 Torsemide 20 mg PO DAILY 07/08/20 Surgical History: Surgical History (Last Reviewed 01/22/20 @ 15:[address] 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 Philipp Ybarra MD) Father CAD (coronary artery disease) History Items: Dementia Paternal Family History: Family History (Last Reviewed 01/22/20 @ 15:[address] Philipp Ybarra MD) Father CAD (coronary artery disease) History Items: Cancer - lung Review of Systems Constitutional: Reports: Chills, Fever, Malaise, Fatigue Eyes: Denies: Blurred vision, Double vision HEENT: Denies: Head Aches, Sinus Congestion, Sinus Drainage Cardiovascular: Denies: Chest Pain, Palpitations Respiratory: Reports: Cough, Shortness of Breath Gastrointestinal: Reports: Abdominal Pain Genitourinary: Denies: Dysuria Musculoskeletal: Denies: Joint Pain, Joint Tenderness Skin: Denies: Rash, Wounds Neurological: Denies: Numbness, Tingling, Focal weakness Psychiatric: Denies: Anxiety, Depression, Homicidal Ideations, Suicidal Ideations Hematologic/ Lymphatic: Reports: Anemia Patient Problems: Active and Suspected Problems (Last Reviewed 01/22/20 @ 15:[address] Philipp Ybarra MD) Weakness (Acute) Shortness of breath (Acute) Objective: The patient's most recent lab work, culture data and imaging studies have all been personally reviewed. - Physical Exam Vitals/I&O's: Vital Signs Temp Pulse Resp BP Pulse Ox 98.1 F 86 20 H 128/60 H 94 07/09/20 11:07 07/09/20 12:06 07/09/20 11:07 07/09/20 11:07 07/09/20 11:07 Oxygen Flow Rate (L/min) 2 Oxygen Delivery Method Nasal Cannula Weight: 268 lb 15.423 oz Body Mass Index (BMI) 49.0 Finger Stick Blood Glucose 88 Intake and Output for Last 24 Hours 07/07/20 07/08/20 07/09/20 23:59 23:59 23:59 Intake Total 671.25 / 671.25 1488.75 / 1488.75 Output Total 100 / 100 Balance 671.25 / 671.25 1388.75 / 1388.75 General: Alert, Cooperative, No apparent distress, - - Morbidly obese. Sitting upright in bed. HEENT: Atraumatic, PERRLA, Normocephalic Oral: No Gingival or Mucosal Lesions/ Ulcerations Neck: Supple, No Nodes, Trachea Midline Lungs: Diminished, Wheezes Cardiovascular: Regular rate, Regular Rhythm Abdomen: Bowel Sounds Present, Soft, Non Tender, Obese Extremities: No clubbing, No cyanosis, No edema Skin: No breakdown Musculoskeletal: No Muscle Wasting Lymphatic: No Cervical, Supraclavicular, or Inguinal Adenopathy Neurological: Cranial nerves II-XII grossly intact, Neuro grossly intact Psych/Mental Status: Normal Affect, Appropriate Labs (Last 48 Hours) 07/08/20 07/08/20 07/08/20 18:15 18:15 18:15 WBC 8.1 RBC 4.81 Hgb 12.8 Hct 41.0 MCV 85.2 MCH 26.6 L MCHC 31.2 L RDW Std Deviation 46.4 H RDW Coeff of Rahel 15.0 H Plt Count 132 L MPV 11.1 Immature Gran % (Auto) 0.500 Neut % (Auto) 86.7 H Lymph % (Auto) 3.1 L Ramsey % (Auto) 8.6 Eos % (Auto) 1.0 Baso % (Auto) 0.1 Absolute Neuts (auto) 7.0 Absolute Lymphs (auto) 0.25 L Nucleated RBC % 0 Differential Comment COMMENT PT 13.7 INR 1.1 D-Dimer Quant (PE/DVT) Sodium 139 Potassium 4.1 Chloride 106 Carbon Dioxide 28.0 Anion Gap 5 BUN 15 Creatinine 1.25 H Estim Creat Clear Calc 34.15 Est GFR (MDRD) Af Amer 54 L Est GFR (MDRD) Non-Af 45 L BUN/Creatinine Ratio 12.0 Glucose 287 H Lactic Acid Calcium 8.9 Magnesium Total Bilirubin 0.70 AST 22 ALT 20 Alkaline Phosphatase 177 H Lactate Dehydrogenase Total Creatine Kinase Troponin I < 0.015 C-React Prot Ext Range B-Natriuretic Peptide Total Protein 6.9 Albumin 2.8 L Globulin 4.1 Albumin/Globulin Ratio 0.7 L Procalcitonin Urine Color Urine Clarity Urine pH Ur Specific [place] Urine Protein Urine Glucose (UA) Urine Ketones Urine Occult Blood Urine Nitrite Urine Bilirubin Urine Urobilinogen Ur Leukocyte Esterase Urine RBC Urine WBC Ur Squamous Epith Cells Amorphous Sediment Urine Bacteria Urine Mucus COVID-19 (JONAS) POC Glucose 07/08/20 07/08/20 07/08/20 18:15 19:10 19:35 WBC RBC Hgb Hct MCV MCH MCHC RDW Std Deviation RDW Coeff of Rahel Plt Count MPV Immature Gran % (Auto) Neut % (Auto) Lymph % (Auto) Ramsey % (Auto) Eos % (Auto) Baso % (Auto) Absolute Neuts (auto) Absolute Lymphs (auto) Nucleated RBC % Differential Comment PT INR D-Dimer Quant (PE/DVT) Sodium Potassium Chloride Carbon Dioxide Anion Gap BUN Creatinine Estim Creat Clear Calc Est GFR (MDRD) Af Amer Est GFR (MDRD) Non-Af BUN/Creatinine Ratio Glucose Lactic Acid Calcium Magnesium Total Bilirubin AST ALT Alkaline Phosphatase Lactate Dehydrogenase Total Creatine Kinase Troponin I C-React Prot Ext Range B-Natriuretic Peptide 266.7 H Total Protein Albumin Globulin Albumin/Globulin Ratio Procalcitonin Urine Color Yellow Urine Clarity Clear Urine pH 6.0 Ur Specific [place] 1.020 Urine Protein 500 H Urine Glucose (UA) 250 H Urine Ketones Negative Urine Occult Blood 150 H Urine Nitrite Negative Urine Bilirubin Negative Urine Urobilinogen Normal Ur Leukocyte Esterase Negative Urine RBC 0-5 SEEN Urine WBC 0 SEEN Ur Squamous Epith Cells 0 SEEN Amorphous Sediment 1+ Urine Bacteria 1+ Urine Mucus 0 SEEN COVID-19 (JONAS) Positive POC Glucose 07/08/20 07/08/20 07/08/20 22:45 22:45 22:45 WBC RBC Hgb Hct MCV MCH MCHC RDW Std Deviation RDW Coeff of Rahel Plt Count MPV Immature Gran % (Auto) Neut % (Auto) Lymph % (Auto) Ramsey % (Auto) Eos % (Auto) Baso % (Auto) Absolute Neuts (auto) Absolute Lymphs (auto) Nucleated RBC % Differential Comment PT 14.9 INR 1.2 D-Dimer Quant (PE/DVT) 1.16 H* Sodium Potassium Chloride Carbon Dioxide Anion Gap BUN Creatinine Estim Creat Clear Calc Est GFR (MDRD) Af Amer Est GFR (MDRD) Non-Af BUN/Creatinine Ratio Glucose Lactic Acid 1.0 Calcium Magnesium Total Bilirubin AST ALT Alkaline Phosphatase Lactate Dehydrogenase 284 H Total Creatine Kinase 138 Troponin I C-React Prot Ext Range 102.00 H B-Natriuretic Peptide Total Protein Albumin Globulin Albumin/Globulin Ratio Procalcitonin Urine Color Urine Clarity Urine pH Ur Specific [place] Urine Protein Urine Glucose (UA) Urine Ketones Urine Occult Blood Urine Nitrite Urine Bilirubin Urine Urobilinogen Ur Leukocyte Esterase Urine RBC Urine WBC Ur Squamous Epith Cells Amorphous Sediment Urine Bacteria Urine Mucus COVID-19 (JONAS) POC Glucose 07/08/20 07/08/20 07/09/20 22:45 22:49 04:25 WBC 6.3 RBC 4.10 L Hgb 11.2 L Hct 35.2 L MCV 85.9 MCH 27.3 MCHC 31.8 L RDW Std Deviation 46.7 H RDW Coeff of Rahel 15.1 H Plt Count 114 L MPV 11.4 Immature Gran % (Auto) 0.600 Neut % (Auto) 79.7 H Lymph % (Auto) 6.6 L Ramsey % (Auto) 12.3 H Eos % (Auto) 0.6 Baso % (Auto) 0.2 Absolute Neuts (auto) 5.0 Absolute Lymphs (auto) 0.42 L Nucleated RBC % 0 Differential Comment SCANNED PT INR D-Dimer Quant (PE/DVT) Sodium Potassium Chloride Carbon Dioxide Anion Gap BUN Creatinine Estim Creat Clear Calc Est GFR (MDRD) Af Amer Est GFR (MDRD) Non-Af BUN/Creatinine Ratio Glucose Lactic Acid Calcium Magnesium Total Bilirubin AST ALT Alkaline Phosphatase Lactate Dehydrogenase Total Creatine Kinase Troponin I C-React Prot Ext Range B-Natriuretic Peptide Total Protein Albumin Globulin Albumin/Globulin Ratio Procalcitonin 0.24 H Urine Color Urine Clarity Urine pH Ur Specific [place] Urine Protein Urine Glucose (UA) Urine Ketones Urine Occult Blood Urine Nitrite Urine Bilirubin Urine Urobilinogen Ur Leukocyte Esterase Urine RBC Urine WBC Ur Squamous Epith Cells Amorphous Sediment Urine Bacteria Urine Mucus COVID-19 (JONAS) POC Glucose 261 H 07/09/20 07/09/20 04:25 10:59 WBC RBC Hgb Hct MCV MCH MCHC RDW Std Deviation RDW Coeff of Rahel Plt Count MPV Immature Gran % (Auto) Neut % (Auto) Lymph % (Auto) Ramsey % (Auto) Eos % (Auto) Baso % (Auto) Absolute Neuts (auto) Absolute Lymphs (auto) Nucleated RBC % Differential Comment PT INR D-Dimer Quant (PE/DVT) Sodium 140 Potassium 3.9 Chloride 107 Carbon Dioxide 29.0 Anion Gap 4 L BUN 16 Creatinine 1.15 H Estim Creat Clear Calc 35.49 Est GFR (MDRD) Af Amer 60 Est GFR (MDRD) Non-Af 49 L BUN/Creatinine Ratio 13.9 Glucose 143 H Lactic Acid Calcium 8.1 L Magnesium 1.4 L Total Bilirubin AST ALT Alkaline Phosphatase Lactate Dehydrogenase Total Creatine Kinase Troponin I C-React Prot Ext Range B-Natriuretic Peptide Total Protein Albumin Globulin Albumin/Globulin Ratio Procalcitonin Urine Color Urine Clarity Urine pH Ur Specific [place] Urine Protein Urine Glucose (UA) Urine Ketones Urine Occult Blood Urine Nitrite Urine Bilirubin Urine Urobilinogen Ur Leukocyte Esterase Urine RBC Urine WBC Ur Squamous Epith Cells Amorphous Sediment Urine Bacteria Urine Mucus COVID-19 (JONAS) POC Glucose 210 H Microbiology 07/08/20 19:35 Urine, Random Streptococcus pneumoniae Antigen (M - Final 07/08/20 19:35 Urine, Random Legionella Antigen - Final 07/08/20 19:10 Mucosa - Nasopharyngeal Respiratory Panel (PCR) - Final Clinical Impression(s) from Imaging Studies Chest X-Ray 07/08/20 19:38 IMPRESSION: Very low lung volumes. Probable mild congestion and interstitial edema. Multifocal atelectasis and/or infiltrates not excluded. Electronically Signed: Maurice Barnett MD at 20:00 EDT , Service support , Current Medications Acetaminophen (Tylenol) 650 mg PO Q6H PRN PRN PRN Reason: Pain Score 1-10/Temp > 100.7 F Al Hydroxide/Mg Hydroxide (Mylanta Ii) 30 ml PO Q6H PRN PRN PRN Reason: Gastric Burning Albuterol Sulfate (Proair Hfa (Sp) Surgery/Vent Pts) 1 puff INHALATION Q2H PRN PRN PRN Reason: SHORTNESS OF BREATH/WHEEZING Atorvastatin Calcium (Lipitor) 20 mg PO QHS [facility] Last Admin: 07/08/20 23:04 Dose: 20 mg Documented by: Carvedilol (Coreg) 12.5 mg PO BID [facility] Last Admin: 07/09/20 10:01 Dose: 12.5 mg Documented by: Cholecalciferol (Vitamin D (25mcg)) 5,000 unit PO DAILY [facility] Last Admin: 07/09/20 10:00 Dose: 5,000 unit Documented by: Dexamethasone (Decadron) 6 mg PO DAILY@0800 [facility] Last Admin: 07/09/20 10:00 Dose: 6 mg Documented by: Dextrose (D50w Syringe) 0 gm IV X1 PRN; Protocol PRN Reason: Hypoglycemia Enoxaparin Sodium (Lovenox) 120 mg SC Q12@0600,1800 [facility] Furosemide (Lasix) 40 mg PO DAILY [facility] Last Admin: 07/09/20 10:00 Dose: 40 mg Documented by: Glucagon () 1 mg IM .X1 PRN PRN Reason: Hypoglycemia Guaifenesin (Mucinex) 1,200 mg PO BID [facility] Last Admin: 07/09/20 10:05 Dose: 1,200 mg Documented by: Sodium Chloride () 250 mls @ 15 mls/hr IV .[id number] PRN PRN Reason: Additional IVPB Infusion Insulin Glargine (Lantus (Bkc)) 35 units SC BID [facility] Last Admin: 07/09/20 10:01 Dose: 35 u Documented by: Insulin Human Lispro (Humalog Kwikpen (Bkc)) 0 unit SC 4X/DAYCM [facility]; Protocol Last Admin: 07/09/20 10:59 Dose: 4 u Documented by: Lisinopril (Zestril) 5 mg PO DAILY [facility] Last Admin: 07/09/20 10:01 Dose: 5 mg Documented by: Magnesium Oxide (Mag-Ox 400) 400 mg PO DAILY [facility] Last Admin: 07/09/20 10:01 Dose: 400 mg Documented by: Morphine Sulfate () 2 mg IV Q3H PRN PRN PRN Reason: Pain Score 6-10/10 Nitroglycerin (Nitrostat) 0.4 mg SUBLINGUAL Q5M PRN PRN Reason: CARDIAC/CHEST PAIN Nystatin (Mycostatin Powder) 1 applic TOPICAL 4X/DAY PRN PRN; Protocol PRN Reason: SKIN Oxycodone HCl (Oxyir) 5 mg PO Q4H PRN PRN PRN Reason: Pain Score 4-5/10 Prochlorperazine Edisylate (Compazine Iv) 5 mg IV Q4H PRN PRN PRN Reason: Breakthrough nausea/vomiting Last Admin: 07/09/20 10:55 Dose: 5 mg Documented by: Senna/Docusate Sodium (Senokot-S, Brittney-Colace) 2 tablet PO BID PRN PRN PRN Reason: Constipation Sertraline HCl (Zoloft) 100 mg PO DAILY [facility] Last Admin: 07/09/20 10:01 Dose: 100 mg Documented by: Sodium Chloride () 10 - 40 ml IV UD PRN PRN Reason: SALINE FLUSH Assessment/Plan Active and Suspected Problems (Last Reviewed 01/22/20 @ 15:[address] Philipp Ybarra MD) Weakness (Acute) Shortness of breath (Acute) RECOMMENDATIONS: 1. Continue Decadron with plans to complete a 10-day treatment course. 2. Continue treatment strength Lovenox. 3. Wean supplemental oxygen to maintain saturations at or above 90%. 4. Encourage incentive spirometer use and mobilize patient as tolerated. 5. Infectious diseases consultation is pending. IMPRESSIONS: 1. Acute hypoxemic respiratory insufficiency secondary to COVID pneumonia The patient is stable at this time from a respiratory perspective on minimal supplemental oxygen. Agree with continuing current supportive measures including Decadron 6 mg daily x10 days along with treatment strength Lovenox. Continue baseline Lasix regimen, given underlying heart failure. Wean supplemental oxygen to maintain saturations at or above 90%. Encourage incentive spirometer use and mobilize patient as tolerated. Infectious diseases consultation is pending as well. 2. History of nonischemic cardiomyopathy/heart failure with reduced ejection fraction Continue outpatient medication regimen including diuretics. 3. Morbid obesity/diabetes mellitus/chronic kidney disease/depression/high risk for sleep disordered breathing Complicates care, management, recovery and prognosis. Continue outpatient medication regimen. Consider outpatient pulmonary follow-up and diagnostic polysomnogram. This note was generated with [employer] dictation software. It may contain incorrect words, spelling, and punctuation that were not noted in checking the note before signing. Inpatient E&M: 33327 Init Hosp L3
--- NOTE | 2020-07-09 13:54 | CASEMGMT ---
Patient has [employer] [facility] and her case specialist is Pearl Riggs. SW called Pearl and left her a voice mail requesting a return call. SW asked if they assist with getting medications delivered for patients. Await return call. Ness HERMAN MSW
--- NOTE | 2020-07-09 14:29 | CON.PCM_ITS ---
Reason for Consult: COVID-19 Consulted by: Dr. Mendoza History of Present Illness: The patient is a 69 year old F [] This is a 69-year-old white female with multiple comorbidities including diabetes mellitus, nonischemic cardiomyopathy with ICD in place, morbid obesity who was admitted because of generalized weakness and some shortness of breath. Patient is currently alert responsive in no acute distress she lives alone and denies any contacts any ill persons. COVID-19 positive. Patient is currently in the ICU on 2 L nasal cannula. Low-dose dexamethasone was started, also on anticoagulation therapy. Low-grade fever overnight and currently euthermic. Patient is responsive in no acute distress. No gastrointestinal distress. No pleuritic chest pain. Chest x-ray report reviewed - Medical History Past Medical History (Chronic Problems): Chronic Problems (Last Reviewed 01/22/20 @ 15:[address] Philipp Ybarra MD) Chronic systolic heart failure (Chronic) IDDM (insulin dependent diabetes mellitus) (Chronic) Non-ischemic cardiomyopathy (Chronic) Essential (primary) hypertension (Chronic) History of implantable cardiac defibrillator (ICD) (Chronic) Allergies/Adverse Reactions: Allergies No Known Allergies Allergy (Verified 01/22/20 15:12) Home Medications: Ambulatory Orders Medication Instructions Recorded Sertraline HCl 100 mg PO DAILY 05/07/19 Nateglinide 60 mg PO TIDCM 07/22/19 Magnesium Oxide [Mag-Ox 400] 400 mg PO DAILY 01/17/20 Atorvastatin Calcium [Lipitor] 20 mg PO QHS 07/08/20 Carvedilol 12.5 mg PO BID 07/08/20 Cholecalciferol (Vitamin D3) 5,000 unit PO DAILY 07/08/20 [Vitamin D3] Guaifenesin [Mucinex] 600 mg PO BID PRN PRN 07/08/20 Insulin Glargine,Hum.rec.anlog 20 unit SQ BID 07/08/20 [Lantus Solostar] Lisinopril 5 mg PO DAILY 07/08/20 Nystatin Powder [Mycostatin Powder] 1 applic TOPICAL 4X/DAY PRN 07/08/20 Torsemide 20 mg PO DAILY 07/08/20 Vital Signs Temp Pulse Resp BP Pulse Ox 98.1 F 86 20 H 128/60 H 94 07/09/20 11:07 07/09/20 12:06 07/09/20 11:07 07/09/20 11:07 07/09/20 11:07 Oxygen Flow Rate (L/min) 2 Oxygen Delivery Method Nasal Cannula Weight: 122 kg Body Mass Index (BMI) 49.0 Finger Stick Blood Glucose 88 Alert responsive on 2 L nasal cannula lungs are clear heart exam S1-S2 abdomen obese but soft Microbiology Past 72 Hours 07/08/20 19:35 Streptococcus pneumoniae Antigen (M - Final Urine, Random 07/08/20 19:35 Legionella Antigen - Final Urine, Random 07/08/20 19:10 Respiratory Panel (PCR) - Final Mucosa - Nasopharyngeal Laboratory Tests Past 24 Hrs 07/08/20 07/08/20 07/08/20 18:15 18:15 18:15 WBC 8.1 RBC 4.81 Hgb 12.8 Hct 41.0 MCV 85.2 MCH 26.6 L MCHC 31.2 L RDW Std Deviation 46.4 H RDW Coeff of Rahel 15.0 H Plt Count 132 L MPV 11.1 Immature Gran % (Auto) 0.500 Neut % (Auto) 86.7 H Lymph % (Auto) 3.1 L [place] % (Auto) 8.6 Eos % (Auto) 1.0 Baso % (Auto) 0.1 Absolute Neuts (auto) 7.0 Absolute Lymphs (auto) 0.25 L Nucleated RBC % 0 Differential Comment COMMENT PT 13.7 INR 1.1 D-Dimer Quant (PE/DVT) Sodium 139 Potassium 4.1 Chloride 106 Carbon Dioxide 28.0 Anion Gap 5 BUN 15 Creatinine 1.25 H Estim Creat Clear Calc 34.15 Est GFR (MDRD) Af Amer 54 L Est GFR (MDRD) Non-Af 45 L BUN/Creatinine Ratio 12.0 Glucose 287 H Lactic Acid Calcium 8.9 Magnesium Total Bilirubin 0.70 AST 22 ALT 20 Alkaline Phosphatase 177 H Lactate Dehydrogenase Total Creatine Kinase Troponin I < 0.015 C-React Prot Ext Range B-Natriuretic Peptide Total Protein 6.9 Albumin 2.8 L Globulin 4.1 Albumin/Globulin Ratio 0.7 L Procalcitonin Urine Color Urine Clarity Urine pH Ur Specific [place] Urine Protein Urine Glucose (UA) Urine Ketones Urine Occult Blood Urine Nitrite Urine Bilirubin Urine Urobilinogen Ur Leukocyte Esterase Urine RBC Urine WBC Ur Squamous Epith Cells Amorphous Sediment Urine Bacteria Urine Mucus COVID-19 (JONAS) 0807/08/20 07/08/20 18:15 19:10 19:35 WBC RBC Hgb Hct MCV MCH MCHC RDW Std Deviation RDW Coeff of Rahel Plt Count MPV Immature Gran % (Auto) Neut % (Auto) Lymph % (Auto) [place] % (Auto) Eos % (Auto) Baso % (Auto) Absolute Neuts (auto) Absolute Lymphs (auto) Nucleated RBC % Differential Comment PT INR D-Dimer Quant (PE/DVT) Sodium Potassium Chloride Carbon Dioxide Anion Gap BUN Creatinine Estim Creat Clear Calc Est GFR (MDRD) Af Amer Est GFR (MDRD) Non-Af BUN/Creatinine Ratio Glucose Lactic Acid Calcium Magnesium Total Bilirubin AST ALT Alkaline Phosphatase Lactate Dehydrogenase Total Creatine Kinase Troponin I C-React Prot Ext Range B-Natriuretic Peptide 266.7 H Total Protein Albumin Globulin Albumin/Globulin Ratio Procalcitonin Urine Color Yellow Urine Clarity Clear Urine pH 6.0 Ur Specific [place] 1.020 Urine Protein 500 H Urine Glucose (UA) 250 H Urine Ketones Negative Urine Occult Blood 150 H Urine Nitrite Negative Urine Bilirubin Negative Urine Urobilinogen Normal Ur Leukocyte Esterase Negative Urine RBC 0-5 SEEN Urine WBC 0 SEEN Ur Squamous Epith Cells 0 SEEN Amorphous Sediment 1+ Urine Bacteria 1+ Urine Mucus 0 SEEN COVID-19 (JONAS) Positive 07/08/20 07/08/20 07/08/20 22:45 22:45 22:45 WBC RBC Hgb Hct MCV MCH MCHC RDW Std Deviation RDW Coeff of Rahel Plt Count MPV Immature Gran % (Auto) Neut % (Auto) Lymph % (Auto) [place] % (Auto) Eos % (Auto) Baso % (Auto) Absolute Neuts (auto) Absolute Lymphs (auto) Nucleated RBC % Differential Comment PT 14.9 INR 1.2 D-Dimer Quant (PE/DVT) 1.16 H* Sodium Potassium Chloride Carbon Dioxide Anion Gap BUN Creatinine Estim Creat Clear Calc Est GFR (MDRD) Af Amer Est GFR (MDRD) Non-Af BUN/Creatinine Ratio Glucose Lactic Acid 1.0 Calcium Magnesium Total Bilirubin AST ALT Alkaline Phosphatase Lactate Dehydrogenase 284 H Total Creatine Kinase 138 Troponin I C-React Prot Ext Range 102.00 H B-Natriuretic Peptide Total Protein Albumin Globulin Albumin/Globulin Ratio Procalcitonin Urine Color Urine Clarity Urine pH Ur Specific [place] Urine Protein Urine Glucose (UA) Urine Ketones Urine Occult Blood Urine Nitrite Urine Bilirubin Urine Urobilinogen Ur Leukocyte Esterase Urine RBC Urine WBC Ur Squamous Epith Cells Amorphous Sediment Urine Bacteria Urine Mucus COVID-19 (JONAS) 07/08/20 07/09/20 07/09/20 22:45 04:25 04:25 WBC 6.3 RBC 4.10 L Hgb 11.2 L Hct 35.2 L MCV 85.9 MCH 27.3 MCHC 31.8 L RDW Std Deviation 46.7 H RDW Coeff of Rahel 15.1 H Plt Count 114 L MPV 11.4 Immature Gran % (Auto) 0.600 Neut % (Auto) 79.7 H Lymph % (Auto) 6.6 L [place] % (Auto) 12.3 H Eos % (Auto) 0.6 Baso % (Auto) 0.2 Absolute Neuts (auto) 5.0 Absolute Lymphs (auto) 0.42 L Nucleated RBC % 0 Differential Comment SCANNED PT INR D-Dimer Quant (PE/DVT) Sodium 140 Potassium 3.9 Chloride 107 Carbon Dioxide 29.0 Anion Gap 4 L BUN 16 Creatinine 1.15 H Estim Creat Clear Calc 35.49 Est GFR (MDRD) Af Amer 60 Est GFR (MDRD) Non-Af 49 L BUN/Creatinine Ratio 13.9 Glucose 143 H Lactic Acid Calcium 8.1 L Magnesium 1.4 L Total Bilirubin AST ALT Alkaline Phosphatase Lactate Dehydrogenase Total Creatine Kinase Troponin I C-React Prot Ext Range B-Natriuretic Peptide Total Protein Albumin Globulin Albumin/Globulin Ratio Procalcitonin 0.24 H Urine Color Urine Clarity Urine pH Ur Specific [place] Urine Protein Urine Glucose (UA) Urine Ketones Urine Occult Blood Urine Nitrite Urine Bilirubin Urine Urobilinogen Ur Leukocyte Esterase Urine RBC Urine WBC Ur Squamous Epith Cells Amorphous Sediment Urine Bacteria Urine Mucus COVID-19 (JONAS) - Other Studies Radiology: [] Other Studies: [] Route of nutrition/ use of supplements: [] Nutritional Intake: [] IV Site: [] Hightower Catheter: [] - Assessment/Plan Antibiotics: [] Assessment/Plan: [] Active and Suspected Problems (Last Reviewed 01/22/20 @ 15:[address] Philipp Ybarra MD) Weakness (Acute) Shortness of breath (Acute) COVID-19 infection in obese female with multiple comorbidities with very minimal respiratory distress. At this point I agree with low-dose dexamethasone. Continue anticoagulation therapy for DVT prophylaxis and continue supportive care.
--- NOTE | 2020-07-09 14:55 | CASEMGMT ---
JERO LOUIS ASSESSMENT Dx: COVID +. JEOR LOUIS placed call to pt and initial transition planning/care coordination assessment completed via phone conversation. JERO LOUIS introduced self and role at [facility]. Pt voices understanding and consents to assessment at this time. Pt is A/O at this time and answers all questions appropriately. Care providers, pharmacy, and demographics verified at this time. PCP: Dr Anisa Ospina @[facility] through [facility] [employer] [facility]: PH: [phone] Specialists: Dr Ybarra--Cardiology Preferred Pharmacy: [facility] Retail Insurance: [employer] [facility] Prescription Benefit: Yes Living Will/HPOA: Has both LW and Healthcare POA, who is her sister, Margarita Araya. LNOK: Sister, Margarita. Person to Notify is her friend, Sreekanth, who is very supportive/involved in pt's care. Living Arrangements: Lives alone in an apartment. No stairs. Has Passport services through [employer]. CM is Karen Riggs. Pt states she has an aide come on Mondays 10:15-2 and 07-15 to assist w/bathing and home tasks. Her friend, Sreekanth, helps with grocery shopping and picking up her medications and any supplies she needs. . Pt states she has masks available (but states does not wear d/t difficulty breathing with it on). She also states she has hand home care physical therapist and cleaning supplies. Transportation: Friend, Sreekanth. Sreekanth is aware pt is COVID + and states will be able to take pt home @ discharge. She has a mask available to use. DME: States has the following DME: shower chair, lift chair, rails/grab bars, hand-held shower, walker, rollator, W/C, medical alert, and nebulizer Pt states no need for further DME at this time. She does not have home O2 and states does not have preference of DME company if she would need home oxygen @ discharge. HHC/SNF: No history of SNF. Hx of [facility]. Pt states she has someone coming to her home every Tuesday to help set up her medications, but she is not sure what agency she is through. Pt states she thinks Sreekanth may know what agency is coming to her home to assist w/setting up medications and gave permission for JERO LOUIS to call and speak with her friend, Sreekanth, re: her care and any home needs. RN CM placed call to Sreekanth, who states she thinks Brock may be through [facility]. Call placed to [facility] and spoke w/Don. Don states pt is still active with them, but states while pt is COVID +, they will not be able to provide services. Pt made aware of this and states would like [facility] if they are able to accept her. Call placed to Marlin @ [facility] and referral made for SN. Awaiting acceptance. While on the phone w/Sreekanth, this RN CM also reviewed COVID-19 precautions/home isolation recommendtions with Sreekanth and she voices understanding. Pt wishes to return home and states has no concerns with going home at time of discharge. CM to follow for home oxygen needs and any further discharge planning/needs. Pt voices no further concerns/needs at this time. Advised pt to ask for CM if any further questions/concerns/needs arise. Voices understanding. PLAN[facility] Awaiting [facility]. Josh PICKARD RN CM
[2020-07-09] MEDS: Enoxaparin 120 MG/0.8 ML Syringe SC (16:37)
[2020-07-09 16:45] LABS: Bedside Glucose 264 mg/dL (70-110)
[2020-07-09] MEDS: Sodium Chloride 0.65% 1 SPRAY SPRAY.BTL 2 SPRAY NASAL ×2 (18:33→21:40)
[2020-07-09] MEDS: Acetaminophen 325 MG Tablet 650 MG PO (18:33)
[2020-07-09] MEDS: Atorvastatin Calcium 20 MG Tablet PO (21:39)
[2020-07-09 21:56] LABS: Bedside Glucose 382 mg/dL (70-110)
[2020-07-10] VITALS (12 sets, daily range): BP systolic 118–142; BP diastolic 54–92; PULSE 54–74; RESP 17–18; TEMP 36.3–37.2; O2SAT 89–96
[2020-07-10 04:00] LABS: Absolute Lymphocyte Count 0.34 X10^3/uL (0.83-4.51); Absolute Neutrophil Count 4.5 X10^3/uL (2.0-7.7); Basophil# 0.01 X10^3/uL; Basophil% 0.2 % (0-1); Hemoglobin 11.6 g/dL (12.0-15.0); Lymphocyte # 0.34 X10^3/ul (4.0); Lymphocyte % 6.1 % (19-41); Mean Corp Hgb Conc 31.4 g/dL (32-36); Mean Corpuscular Hgb 26.9 pg (27.0-32.0); Mean Corpuscular Volume 85.6 fL (81-99); Monocyte# 0.65 X10^3/uL; Monocyte% 11.6 % (0-10); NRBC Flagged by Analyzer 0 % (0-5); Neutrophil # 4.54 X10^3/uL (2.7-7.7); POSITIVE DIFFERENTIAL YES; Platelet Count 120 K/mm3 (150-450); RBC Distribution Width CV 15.1 % (11.6-14.6); RBC Distribution Width SD 46.7 fl (35.1-43.9); Red Blood Count 4.32 M/mm3 (4.2-5.4); White Blood Count 5.6 K/mm3 (4.4-11.0)
[2020-07-10 04:04] LABS: Differential Indicated SCAN CRITERIA MET
[2020-07-10 04:21] LABS: ALB/GLOB Ratio 0.6 RATIO (0.9-2.4); AST(SGOT) 29 U/L (15-37); Alanine Aminotransfer ALT/SGPT 24 U/L (13-56); Albumin, Serum 2.2 g/dL (3.2-5.0); Alkaline Phosphatase 167 U/L (45-117); Anion Gap 4 (5-15); BUN 27 mg/dL (7-18); BUN/Creat Ratio 19.1 RATIO (10-20); Chloride 104 mmol/L (98-107); Creatinine, Serum 1.41 mg/dL (0.55-1.02); EST Glomerular Filtration Rate 39 mL/min (>60); Est Glom Filt Rate - Afr Amer 47 mL/min (>60); Estimated Creatinine Clearance 28.94 ml/min; Globulin 3.8 g/dL (2.2-4.2); Glucose 241 mg/dL (74-106); Potassium 4.5 mmol/L (3.5-5.1); Sodium Level 136 mmol/L (136-145)
[2020-07-10 04:53] LABS: Differential Comment SCANNED
--- NOTE | 2020-07-10 05:55 | RAD_ITS ---
STUDY: X-RAY CHEST REASON FOR EXAM: Female, 69 years old. pneumonia with covid 19 -- best images possible, patient would not keep her back on the grid TECHNIQUE: Single AP portable view of the chest. 2 images. Patient is rotated to the left. COMPARISON: 07/08/2020. 09/13/2019. FINDINGS: There is an anterior chest wall single chamber permanent pacemaker. There are superimposed monitor leads. Worsening of aeration with increase of opacification in the right perihilar parenchyma, base and medial upper lung, as well as in the retrocardiac space with loss of lateral diaphragmatic contour, possible mild costophrenic angle blunting. No large effusions. There is cardiac enlargement. Normal mediastinum and madan. Normal visualized pulmonary arteries. There is atherosclerotic calcification of the aortic arch with tortuosity. There is demineralization of the osseous structures. The spine and upper abdominal soft tissues are obscured. Obesity. RAD/Chest 1 View (Portable) IMPRESSION: Worsening of aeration as outlined above compared to the most recent examination. Opacification left retrocardiac space may be due to increased rotation of the patient and positioning. Small left pleural effusion suspected. Electronically Signed: Sulma Harmon MD at 5:50 EDT , Service support ,
[2020-07-10] MEDS: 0.9% Saline Lock 10 ML Syringe IV (05:57)
[2020-07-10] MEDS: Enoxaparin 120 MG/0.8 ML Syringe SC ×2 (05:57→17:48)
--- NOTE | 2020-07-10 07:09 | PCM.PN.INT ---
Subjective: The patient was seen and examined at the bedside this morning. Events from the last 24 hours have been reviewed. The patient is currently afebrile, hemodynamically stable and maintaining appropriate oxygen saturations on 1 L/min via nasal cannula. Creatinine is up a bit this morning to 1.41. No issues were identified by the overnight nursing staff. Objective: The patient's most recent lab work, culture data and imaging studies have all been personally reviewed. Surface echocardiogram from April 2019 revealed a mildly dilated LV with severe segmental systolic dysfunction and an ejection fraction of 20%. Respiratory viral panel was negative. Strep and urine Legionella antigens were negative. Blood cultures are pending. Coronavirus PCR was noted to be positive on July 08. General: Alert, Cooperative, No apparent distress HEENT: Atraumatic, Normocephalic Oral: No Gingival or Mucosal Lesions/ Ulcerations Neck: Supple, No Nodes, Trachea Midline Lungs: No rhonchi, No wheeze, No rales, Diminished Cardiovascular: Regular rate, Regular Rhythm Abdomen: Bowel Sounds Present, Soft, Non Tender, Obese Extremities: No clubbing, No cyanosis, No edema Skin: No breakdown Musculoskeletal: No Tenderness to Palpation of Joints or Extremities, No Muscle Wasting Lymphatic: No Cervical, Supraclavicular, or Inguinal Adenopathy Neurological: Cranial nerves II-XII grossly intact, Neuro grossly intact Psych/Mental Status: Alert and oriented to time, place, person, mood and affect Vital Signs Temp Pulse Resp BP Pulse Ox 98.1 F 60 18 136/92 H 93 07/10/20 04:32 07/10/20 04:32 07/10/20 04:32 07/10/20 04:32 07/10/20 04:32 Oxygen Flow Rate (L/min) 1 Oxygen Delivery Method Nasal Cannula Weight: 271 lb 1.6 oz Body Mass Index (BMI) 49.0 Finger Stick Blood Glucose 88 Intake and Output for Last 24 Hours 07/08/20 07/09/20 07/10/20 23:59 23:59 23:59 Intake Total 671.25 / 671.25 1738.75 / 1978.75 540 / 540 Output Total 800 / 1150 750 / 750 Balance 671.25 / 671.25 938.75 / 828.75 -210 / -210 Labs (Last 48 Hours) 07/08/20 07/08/20 07/08/20 18:15 18:15 18:15 WBC 8.1 RBC 4.81 Hgb 12.8 Hct 41.0 MCV 85.2 MCH 26.6 L MCHC 31.2 L RDW Std Deviation 46.4 H RDW Coeff of Rahel 15.0 H Plt Count 132 L MPV 11.1 Immature Gran % (Auto) 0.500 Neut % (Auto) 86.7 H Lymph % (Auto) 3.1 L [place] % (Auto) 8.6 Eos % (Auto) 1.0 Baso % (Auto) 0.1 Absolute Neuts (auto) 7.0 Absolute Lymphs (auto) 0.25 L Nucleated RBC % 0 Differential Comment COMMENT PT 13.7 INR 1.1 D-Dimer Quant (PE/DVT) Sodium 139 Potassium 4.1 Chloride 106 Carbon Dioxide 28.0 Anion Gap 5 BUN 15 Creatinine 1.25 H Estim Creat Clear Calc 34.15 Est GFR (MDRD) Af Amer 54 L Est GFR (MDRD) Non-Af 45 L BUN/Creatinine Ratio 12.0 Glucose 287 H Lactic Acid Calcium 8.9 Magnesium Total Bilirubin 0.70 AST 22 ALT 20 Alkaline Phosphatase 177 H Lactate Dehydrogenase Total Creatine Kinase Troponin I < 0.015 C-React Prot Ext Range B-Natriuretic Peptide Total Protein 6.9 Albumin 2.8 L Globulin 4.1 Albumin/Globulin Ratio 0.7 L Procalcitonin Urine Color Urine Clarity Urine pH Ur Specific [place] Urine Protein Urine Glucose (UA) Urine Ketones Urine Occult Blood Urine Nitrite Urine Bilirubin Urine Urobilinogen Ur Leukocyte Esterase Urine RBC Urine WBC Ur Squamous Epith Cells Amorphous Sediment Urine Bacteria Urine Mucus COVID-19 (JONAS) POC Glucose 07/08/20 07/08/20 07/08/20 18:15 19:10 19:35 WBC RBC Hgb Hct MCV MCH MCHC RDW Std Deviation RDW Coeff of Rahel Plt Count MPV Immature Gran % (Auto) Neut % (Auto) Lymph % (Auto) [place] % (Auto) Eos % (Auto) Baso % (Auto) Absolute Neuts (auto) Absolute Lymphs (auto) Nucleated RBC % Differential Comment PT INR D-Dimer Quant (PE/DVT) Sodium Potassium Chloride Carbon Dioxide Anion Gap BUN Creatinine Estim Creat Clear Calc Est GFR (MDRD) Af Amer Est GFR (MDRD) Non-Af BUN/Creatinine Ratio Glucose Lactic Acid Calcium Magnesium Total Bilirubin AST ALT Alkaline Phosphatase Lactate Dehydrogenase Total Creatine Kinase Troponin I C-React Prot Ext Range B-Natriuretic Peptide 266.7 H Total Protein Albumin Globulin Albumin/Globulin Ratio Procalcitonin Urine Color Yellow Urine Clarity Clear Urine pH 6.0 Ur Specific [place] 1.020 Urine Protein 500 H Urine Glucose (UA) 250 H Urine Ketones Negative Urine Occult Blood 150 H Urine Nitrite Negative Urine Bilirubin Negative Urine Urobilinogen Normal Ur Leukocyte Esterase Negative Urine RBC 0-5 SEEN Urine WBC 0 SEEN Ur Squamous Epith Cells 0 SEEN Amorphous Sediment 1+ Urine Bacteria 1+ Urine Mucus 0 SEEN COVID-19 (JONAS) Positive POC Glucose 07/08/20 07/08/20 07/08/20 22:45 22:45 22:45 WBC RBC Hgb Hct MCV MCH MCHC RDW Std Deviation RDW Coeff of Rahel Plt Count MPV Immature Gran % (Auto) Neut % (Auto) Lymph % (Auto) [place] % (Auto) Eos % (Auto) Baso % (Auto) Absolute Neuts (auto) Absolute Lymphs (auto) Nucleated RBC % Differential Comment PT 14.9 INR 1.2 D-Dimer Quant (PE/DVT) 1.16 H* Sodium Potassium Chloride Carbon Dioxide Anion Gap BUN Creatinine Estim Creat Clear Calc Est GFR (MDRD) Af Amer Est GFR (MDRD) Non-Af BUN/Creatinine Ratio Glucose Lactic Acid 1.0 Calcium Magnesium Total Bilirubin AST ALT Alkaline Phosphatase Lactate Dehydrogenase 284 H Total Creatine Kinase 138 Troponin I C-React Prot Ext Range 102.00 H B-Natriuretic Peptide Total Protein Albumin Globulin Albumin/Globulin Ratio Procalcitonin Urine Color Urine Clarity Urine pH Ur Specific [place] Urine Protein Urine Glucose (UA) Urine Ketones Urine Occult Blood Urine Nitrite Urine Bilirubin Urine Urobilinogen Ur Leukocyte Esterase Urine RBC Urine WBC Ur Squamous Epith Cells Amorphous Sediment Urine Bacteria Urine Mucus COVID-19 (JONAS) POC Glucose 07/08/20 07/08/20 07/09/20 22:45 22:49 04:25 WBC 6.3 RBC 4.10 L Hgb 11.2 L Hct 35.2 L MCV 85.9 MCH 27.3 MCHC 31.8 L RDW Std Deviation 46.7 H RDW Coeff of Rahel 15.1 H Plt Count 114 L MPV 11.4 Immature Gran % (Auto) 0.600 Neut % (Auto) 79.7 H Lymph % (Auto) 6.6 L [place] % (Auto) 12.3 H Eos % (Auto) 0.6 Baso % (Auto) 0.2 Absolute Neuts (auto) 5.0 Absolute Lymphs (auto) 0.42 L Nucleated RBC % 0 Differential Comment SCANNED PT INR D-Dimer Quant (PE/DVT) Sodium Potassium Chloride Carbon Dioxide Anion Gap BUN Creatinine Estim Creat Clear Calc Est GFR (MDRD) Af Amer Est GFR (MDRD) Non-Af BUN/Creatinine Ratio Glucose Lactic Acid Calcium Magnesium Total Bilirubin AST ALT Alkaline Phosphatase Lactate Dehydrogenase Total Creatine Kinase Troponin I C-React Prot Ext Range B-Natriuretic Peptide Total Protein Albumin Globulin Albumin/Globulin Ratio Procalcitonin 0.24 H Urine Color Urine Clarity Urine pH Ur Specific [place] Urine Protein Urine Glucose (UA) Urine Ketones Urine Occult Blood Urine Nitrite Urine Bilirubin Urine Urobilinogen Ur Leukocyte Esterase Urine RBC Urine WBC Ur Squamous Epith Cells Amorphous Sediment Urine Bacteria Urine Mucus COVID-19 (JONAS) POC Glucose 261 H 07/09/20 07/09/20 07/09/20 04:25 10:59 16:35 WBC RBC Hgb Hct MCV MCH MCHC RDW Std Deviation RDW Coeff of Rahel Plt Count MPV Immature Gran % (Auto) Neut % (Auto) Lymph % (Auto) [place] % (Auto) Eos % (Auto) Baso % (Auto) Absolute Neuts (auto) Absolute Lymphs (auto) Nucleated RBC % Differential Comment PT INR D-Dimer Quant (PE/DVT) Sodium 140 Potassium 3.9 Chloride 107 Carbon Dioxide 29.0 Anion Gap 4 L BUN 16 Creatinine 1.15 H Estim Creat Clear Calc 35.49 Est GFR (MDRD) Af Amer 60 Est GFR (MDRD) Non-Af 49 L BUN/Creatinine Ratio 13.9 Glucose 143 H Lactic Acid Calcium 8.1 L Magnesium 1.4 L Total Bilirubin AST ALT Alkaline Phosphatase Lactate Dehydrogenase Total Creatine Kinase Troponin I C-React Prot Ext Range B-Natriuretic Peptide Total Protein Albumin Globulin Albumin/Globulin Ratio Procalcitonin Urine Color Urine Clarity Urine pH Ur Specific [place] Urine Protein Urine Glucose (UA) Urine Ketones Urine Occult Blood Urine Nitrite Urine Bilirubin Urine Urobilinogen Ur Leukocyte Esterase Urine RBC Urine WBC Ur Squamous Epith Cells Amorphous Sediment Urine Bacteria Urine Mucus COVID-19 (JONAS) POC Glucose 210 H 264 H 07/09/20 07/10/20 07/10/20 21:28 03:45 03:45 WBC 5.6 RBC 4.32 Hgb 11.6 L Hct 37.0 MCV 85.6 MCH 26.9 L MCHC 31.4 L RDW Std Deviation 46.7 H RDW Coeff of Rahel 15.1 H Plt Count 120 L MPV 12.0 Immature Gran % (Auto) 1.100 H Neut % (Auto) 81.0 H Lymph % (Auto) 6.1 L [place] % (Auto) 11.6 H Eos % (Auto) 0.0 Baso % (Auto) 0.2 Absolute Neuts (auto) 4.5 Absolute Lymphs (auto) 0.34 L Nucleated RBC % 0 Differential Comment SCANNED PT INR D-Dimer Quant (PE/DVT) Sodium 136 Potassium 4.5 Chloride 104 Carbon Dioxide 28.0 Anion Gap 4 L BUN 27 H Creatinine 1.41 H Estim Creat Clear Calc 28.94 Est GFR (MDRD) Af Amer 47 L Est GFR (MDRD) Non-Af 39 L BUN/Creatinine Ratio 19.1 Glucose 241 H Lactic Acid Calcium 8.0 L Magnesium Total Bilirubin 0.40 AST 29 ALT 24 Alkaline Phosphatase 167 H Lactate Dehydrogenase Total Creatine Kinase Troponin I C-React Prot Ext Range B-Natriuretic Peptide Total Protein 6.0 L Albumin 2.2 L Globulin 3.8 Albumin/Globulin Ratio 0.6 L Procalcitonin Urine Color Urine Clarity Urine pH Ur Specific [place] Urine Protein Urine Glucose (UA) Urine Ketones Urine Occult Blood Urine Nitrite Urine Bilirubin Urine Urobilinogen Ur Leukocyte Esterase Urine RBC Urine WBC Ur Squamous Epith Cells Amorphous Sediment Urine Bacteria Urine Mucus COVID-19 (JONAS) POC Glucose 382 H Microbiology 07/08/20 19:35 Urine, Random Streptococcus pneumoniae Antigen (M - Final 07/08/20 19:35 Urine, Random Legionella Antigen - Final 07/08/20 19:10 Mucosa - Nasopharyngeal Respiratory Panel (PCR) - Final Clinical Impression(s) from Imaging Studies Chest X-Ray 07/08/20 19:38 IMPRESSION: Very low lung volumes. Probable mild congestion and interstitial edema. Multifocal atelectasis and/or infiltrates not excluded. Electronically Signed: Maurice Barnett MD at 20:00 EDT , Service support , Chest X-Ray 07/10/20 05:55 IMPRESSION: Worsening of aeration as outlined above compared to the most recent examination. Opacification left retrocardiac space may be due to increased rotation of the patient and positioning. Small left pleural effusion suspected. Electronically Signed: Sulma Harmon MD at 5:50 EDT , Service support , Medical Necessity - Tobacco Use Smoking Status: Never smoker Assessment/Plan All Active Problems (Last Reviewed 01/22/20 @ 15:[address] Philipp Ybarra MD) Weakness (Acute) Pneumonia due to COVID-19 virus (Acute) Shortness of breath (Acute) Rectal bleeding (Acute) RECOMMENDATIONS: 1. Continue Decadron with plans to complete a 10-day treatment course. 2. Continue treatment strength Lovenox. 3. Wean supplemental oxygen to maintain saturations at or above 90%. 4. Encourage incentive spirometer use and mobilize patient as tolerated. IMPRESSIONS: 1. Acute hypoxemic respiratory insufficiency secondary to COVID pneumonia The patient is stable at this time from a respiratory perspective on minimal supplemental oxygen. Agree with continuing current supportive measures including Decadron 6 mg daily x10 days along with treatment strength Lovenox. Continue baseline Lasix regimen, given underlying heart failure. Wean supplemental oxygen to maintain saturations at or above 90%. Encourage incentive spirometer use and mobilize patient as tolerated. Infectious diseases is following. 2. History of nonischemic cardiomyopathy/heart failure with reduced ejection fraction Continue outpatient medication regimen including diuretics. 3. Morbid obesity/diabetes mellitus/chronic kidney disease/depression/high risk for sleep disordered breathing Complicates care, management, recovery and prognosis. Continue outpatient medication regimen. Consider outpatient pulmonary follow-up and diagnostic polysomnogram. This note was generated with [employer] dictation software. It may contain incorrect words, spelling, and punctuation that were not noted in checking the note before signing. Inpatient E&M: 36971 Subs Hosp L2
[2020-07-10] MEDS: Insulin Lispro 100 UNIT/ML INSULN.PEN SC ×4 (08:25→21:18)
[2020-07-10 08:55] LABS: Bedside Glucose 214 mg/dL (70-110)
[2020-07-10] MEDS: guaiFENesin 1,200 MG Tablet 1200 MG PO ×2 (10:04→21:15)
[2020-07-10] MEDS: Furosemide 40 MG Tablet PO (10:04)
[2020-07-10] MEDS: dexAMETHasone 4 MG Tablet 6 MG PO (10:04)
[2020-07-10] MEDS: Lisinopril 5 MG Tablet PO (10:04)
[2020-07-10] MEDS: Carvedilol 12.5 MG Tablet PO ×2 (10:04→21:16)
[2020-07-10] MEDS: Magnesium Oxide 400 MG Tablet PO (10:04)
[2020-07-10] MEDS: Sertraline 100 MG Tablet PO (10:04)
--- NOTE | 2020-07-10 12:34 | CASEMGMT ---
Addendum entered by Ion Gilman 07/10/20 13:43: Call to [facility]- they are willing to package patient's medications for her. Would need to have someone bring her medications in- they would package, then would manage all refills. Attempted call to patient, no answer currently. Charito COLMENARES Original Note: JERO LOUIS Note: Call from DIETER Luna @ [facility]. They are unable to take referral for this patient. Charito SERRATO
[2020-07-10 12:55] LABS: Bedside Glucose 221 mg/dL (70-110)
--- NOTE | 2020-07-10 14:53 | CASEMGMT ---
Addendum entered by Ion Gilman 07/10/20 15:32: Call to speak with Sreekanth-pt's friend. Per Sreekanth she is in quarantine and will not be able to assist patient with medications. Sreekanth also states she spoke with patient's sister who plans to move patient to [place] to live near her in future. -Sister Margarita called and states that she does not feel patient can be alone. If patient needs to go to SNF, sister would like her to come to her area SNF called [facility]. Sister said if needed, she would drive up with her family and get patient's cat. Sister also states patient is mentally challenged, and she is was active in past with [facility] [employer]. Currently not active with these services. Sister was concerned that patient's aides are being quarantined and she relies on them for ADL's, cooking and cleaning. JERO LOUIS let sister know that SW would be speaking with [employer] re: patient's need for aides on discharge if she goes home, and referral was made to home health. Also let sister know once PT/OT sees patient, if SNF is recommended, we would speak with pt re: this dc plan. -PT/OT was called earlier and stated they would see patient at end of day. Evals are pending. -DIETER Klein updated on above information. -Referral for SN with med mgmt faxed to [facility] @ ; . Awaiting eval of referral. Original Note: JERO LOUIS note: contacted patient in room. Discussed homegoing and medication set up. Patient states she thinks she needs to go to assisted living in future when her friend Sreekanth moves from their complex. States she has no one to assist her. Discussed setting up meds with [facility] and asked pt who can deliver her home meds to the pharmacy. She stated Sreekanth could. Gave JERO LOUIS permission to contact Sreekanth to go to her home and get medications. Charito PICKARD RN ACM
--- NOTE | 2020-07-10 15:44 | PN_ITS ---
Patient Problems: Active and Suspected Problems (Last Reviewed 01/22/20 @ 15:[address] Philipp Ybarra MD) Weakness (Acute) Shortness of breath (Acute) Subjective: Feels much better. States that she still feels a little tight and wheezy but overall much better. Anxious to go home but nervous about it now as she lives alone. Vitals/I&O's: Vital Signs Temp Pulse Resp BP Pulse Ox 97.4 F L 64 18 127/54 H 96 07/10/20 10:00 07/10/20 15:00 07/10/20 10:00 07/10/20 10:00 07/10/20 10:00 Oxygen Flow Rate (L/min) 1 Oxygen Delivery Method Room Air Weight: 122.969 kg Body Mass Index (BMI) 49.0 Finger Stick Blood Glucose 88 Intake and Output for Last 24 Hours 07/08/20 07/09/20 07/10/20 23:59 23:59 23:59 Intake Total 671.25 / 671.25 1738.75 / 1978.75 780 / 780 Output Total 800 / 1150 900 / 900 Balance 671.25 / 671.25 938.75 / 828.75 -120 / -120 General: Alert, Oriented x3, Cooperative, No apparent distress, Well developed, Well nourished, - - MO WF, sitting up in bed watching TV HEENT: Atraumatic, PERRLA, EOMI, Normocephalic, EAC Clear Oral: Moist Mucosa, No Gingival or Mucosal Lesions/ Ulcerations Neck: Supple, No JVD, No Nodes, Trachea Midline, Thyroid Normal Size and Texture Lungs: No rhonchi, No wheeze, Diminished, Rales - few scattered Cardiovascular: Regular rate, Regular Rhythm, Normal S1, Normal S2, No murmurs, No Ectopic Activity, No rub noted, No Gallop Abdomen: Bowel Sounds Present, Soft, Non Tender, Non-Distended, No Hepato- splenomegaly, Obese Extremities: No clubbing, No cyanosis, No edema, Capillary Refill Less than 3 Seconds, Peripheral Pulses Normal Skin: No rashes, No breakdown Musculoskeletal: No Tenderness to Palpation of Joints or Extremities, No Muscle Wasting, Arthritic Changes Lymphatic: No Cervical, Supraclavicular, or Inguinal Adenopathy Neurological: Cranial nerves II-XII grossly intact, Neuro grossly intact Psych/Mental Status: Normal Affect, Appropriate, Alert and oriented to time, place, person, mood and affect Microbiology Past 72 Hours 07/10/20 13:45 Sputum, Expectorated/Coughed Gram Stain - Final 07/08/20 19:35 Urine, Random Streptococcus pneumoniae Antigen (M - Final 07/08/20 19:35 Urine, Random Legionella Antigen - Final 07/08/20 19:10 Mucosa - Nasopharyngeal Respiratory Panel (PCR) - Final Laboratory Results 07/09/20 16:35: POC Glucose 264 H 07/09/20 21:28: POC Glucose 382 H 07/10/20 03:45: WBC 5.6, RBC 4.32, Hgb 11.6 L, Hct 37.0, MCV 85.6, MCH 26.9 L, MCHC 31.4 L, RDW Std Deviation 46.7 H, RDW Coeff of Rahel 15.1 H, Plt Count 120 L, MPV 12.0, Immature Gran % (Auto) 1.100 H, Neut % (Auto) 81.0 H, Lymph % (Auto) 6.1 L, [place] % (Auto) 11.6 H, Eos % (Auto) 0.0, Baso % (Auto) 0.2, Absolute Neuts (auto) 4.5, Absolute Lymphs (auto) 0.34 L, Nucleated RBC % 0, Differential Comment SCANNED 07/10/20 03:45: Sodium 136, Potassium 4.5, Chloride 104, Carbon Dioxide 28.0, Anion Gap 4 L, BUN 27 H, Creatinine 1.41 H, Estim Creat Clear Calc 28.94, Est GFR (MDRD) Af Amer 47 L, Est GFR (MDRD) Non-Af 39 L, BUN/Creatinine Ratio 19.1, Glucose 241 H, Calcium 8.0 L, Total Bilirubin 0.40, AST 29, ALT 24, Alkaline Phosphatase 167 H, Total Protein 6.0 L, Albumin 2.2 L, Globulin 3.8, Albumin/Globulin Ratio 0.6 L 07/10/20 08:24: POC Glucose 214 H 07/10/20 12:18: POC Glucose 221 H Current Medications Acetaminophen (Tylenol) 650 mg PO Q6H PRN PRN PRN Reason: Pain Score 1-10/Temp > 100.7 F Last Admin: 07/09/20 18:33 Dose: 650 mg Documented by: Al Hydroxide/Mg Hydroxide (Mylanta Ii) 30 ml PO Q6H PRN PRN PRN Reason: Gastric Burning Albuterol Sulfate (Proair Hfa (Sp) Surgery/Vent Pts) 1 puff INHALATION Q2H PRN PRN PRN Reason: SHORTNESS OF BREATH/WHEEZING Atorvastatin Calcium (Lipitor) 20 mg PO QHS [facility] Last Admin: 07/09/20 21:39 Dose: 20 mg Documented by: Carvedilol (Coreg) 12.5 mg PO BID [facility] Last Admin: 07/10/20 10:04 Dose: 12.5 mg Documented by: Cholecalciferol (Vitamin D (25mcg)) 5,000 unit PO DAILY [facility] Last Admin: 07/10/20 10:05 Dose: 5,000 unit Documented by: Dexamethasone (Decadron) 6 mg PO DAILY@0800 [facility] Last Admin: 07/10/20 10:04 Dose: 6 mg Documented by: Dextrose (D50w Syringe) 0 gm IV X1 PRN; Protocol PRN Reason: Hypoglycemia Enoxaparin Sodium (Lovenox) 120 mg SC Q12@0600,1800 [facility] Last Admin: 07/10/20 05:57 Dose: 120 mg Documented by: Furosemide (Lasix) 40 mg PO DAILY [facility] Last Admin: 07/10/20 10:04 Dose: 40 mg Documented by: Glucagon () 1 mg IM .X1 PRN PRN Reason: Hypoglycemia Guaifenesin (Mucinex) 1,200 mg PO BID [facility] Last Admin: 07/10/20 10:04 Dose: 1,200 mg Documented by: Sodium Chloride () 250 mls @ 15 mls/hr IV .[id number] PRN PRN Reason: Additional IVPB Infusion Insulin Glargine (Lantus (Bk)) 35 units SC BID [facility] Last Admin: 07/10/20 10:08 Dose: 35 u Documented by: Insulin Human Lispro (Humalog Kwikpen (Bk)) 0 unit SC 4X/DAYCM [facility]; Protocol Last Admin: 07/10/20 12:20 Dose: 4 u Documented by: Lisinopril (Zestril) 5 mg PO DAILY [facility] Last Admin: 07/10/20 10:04 Dose: 5 mg Documented by: Magnesium Oxide (Mag-Ox 400) 400 mg PO DAILY [facility] Last Admin: 07/10/20 10:04 Dose: 400 mg Documented by: Morphine Sulfate () 2 mg IV Q3H PRN PRN PRN Reason: Pain Score 6-10/10 Nitroglycerin (Nitrostat) 0.4 mg SUBLINGUAL Q5M PRN PRN Reason: CARDIAC/CHEST PAIN Nystatin (Mycostatin Powder) 1 applic TOPICAL 4X/DAY PRN PRN; Protocol PRN Reason: SKIN Oxycodone HCl (Oxyir) 5 mg PO Q4H PRN PRN PRN Reason: Pain Score 4-5/10 Prochlorperazine Edisylate (Compazine Iv) 5 mg IV Q4H PRN PRN PRN Reason: Breakthrough nausea/vomiting Last Admin: 07/09/20 10:55 Dose: 5 mg Documented by: Senna/Docusate Sodium (Senokot-S, Brittney-Colace) 2 tablet PO BID PRN PRN PRN Reason: Constipation Sertraline HCl (Zoloft) 100 mg PO DAILY [facility] Last Admin: 07/10/20 10:04 Dose: 100 mg Documented by: Sodium Chloride () 10 - 40 ml IV UD PRN PRN Reason: SALINE FLUSH Last Admin: 07/10/20 05:57 Dose: 10 ml Documented by: Sodium Chloride ([place] Nasal [place]) 2 spray NASAL Q2H PRN PRN Reason: NASAL DRYNESS Last Admin: 07/09/20 21:40 Dose: 2 spray Documented by: STROKE Vital Signs/Narrative: Vital Signs Pulse 07/10/20 15:00 64 Medical Necessity - Tobacco Use Smoking Status: Never smoker Assessment/Plan All Active Problems (Last Reviewed 01/22/20 @ 15:[address] Philipp Ybarra MD) Weakness (Acute) Pneumonia due to COVID-19 virus (Acute) Shortness of breath (Acute) Rectal bleeding (Acute) Acute Respiratory Insufficiency 2/2 COVID-19 PNA -now on RA with SpO2 96%% -at baseline on RA -start Decadron 6 mg daily as pt is requiring supplemental O2 (day 12/24) -No remdesivir or convalescent plasma at this time -Pt is at high risk for progression given her current comorbidities -continue therapeutic Lovenox dosing 120 BID -CXR shows patchy B infiltrates--> repeat in am -ID and pulm following HFrEF-compensated/CAD/ICM/HTN/HPL -[facility] 2016 showed 30 to 40% LAD and mid RCA, 60 to 70% and ostial LCD 30% -ECHO with severe segmental WMA/EF 20% -continue torsemide/Lisinopril/Coreg -monitor for s/o worsening failure Recent LGIB 2/2 Diverticular Bleed -10/2019 -c-scope done at that time--> removal of 1.5 cm polyp in descending colon -hgb stable -monitor closely with Full dose Lovenox DM-2 Uncontrolled -A1c was 12.2 in 07/2019 -on Lantus 20 mg BID -with steroids will need higher doses -continue 35 mg BID while on steroids -add Log 10 u with meals -continue Lipitor Mild Anemia -likely dilutional -monitor hbg -no s/o blood loss CKD Stage 3 -sCr at baseline range -will monitor -bmp in am -BUN up 2/2 steroids Depression -continue Zoloft MO -BMI 49.2 -recommend wgt loss DVT prophylaxis -therapeutic dose Lovenox Code Status -Full Dispo -if pt remains stable and Pulm agrees will d/c pt tomorrow -pt lives alone Inpatient E&M: [id number] [facility] [[email or web address]] Hosp L3
[2020-07-10] MEDS: Insulin Lispro 100 UNIT/ML INSULN.PEN 10 UNIT SC (16:29)
[2020-07-10 17:11] LABS: Bedside Glucose 269 mg/dL (70-110)
[2020-07-10] MEDS: Atorvastatin Calcium 20 MG Tablet PO (21:15)
[2020-07-10] MEDS: Acetaminophen 325 MG Tablet 650 MG PO (21:16)
[2020-07-10 21:31] LABS: Bedside Glucose 305 mg/dL (70-110)
[2020-07-11] VITALS (32 sets, daily range): BP systolic 108–153; BP diastolic 43–96; PULSE 64–97; RESP 18–28; TEMP 36.6–37.5; O2SAT 85–97
--- NOTE | 2020-07-11 01:00 | NURSING ---
called into pt room. Pt told nurse to put her head up and asst with her adjusting her pillow. head put up and pillow adjusted encourage pt to help with care since she is going home tomorrow.
--- NOTE | 2020-07-11 02:30 | NURSING ---
Called into pt room. Pt wants nurses to turn her in bed. while turning pt noticed incont of stool. Pt cleaned up and pulled up in bed. Pt needs encourgment to help with her care.
--- NOTE | 2020-07-11 04:00 | NURSING ---
Called into pt room. Pt stated she has vomited. When nurse entered room. no emesis could be found. Pt then said she just had alot of sputum and spit it in a towel. no towel found. Checked blankets none found. Then pt said she was nausated. compazine given. Pt informed if she thinks she can take care of self. Pt replied no
[2020-07-11] MEDS: 0.9% Saline Lock 10 ML Syringe IV (04:07)
[2020-07-11] MEDS: proCHLORPERazine 10 MG/2 ML Vial 5 MG IV (04:07)
[2020-07-11] MEDS: Enoxaparin 120 MG/0.8 ML Syringe SC ×2 (05:00→17:09)
--- NOTE | 2020-07-11 05:07 | NURSING ---
called into pt room fix her covers. Encouraged pt to help with pulling her covers up.
--- NOTE | 2020-07-11 05:25 | RAD_ITS ---
STUDY: X-RAY CHEST REASON FOR EXAM: Female, 69 years old. PNA;SOB TECHNIQUE: Single AP portable view of the chest. COMPARISON: Comparison is made with prior study dated 07/10/2020. FINDINGS: EKG electrodes are seen. Stable right pulmonary infiltrates. Mild increased infiltration in the left upper lobe. There is no demonstrated pleural abnormality. Normal size heart. A left-sided unipolar pacemaker is seen. Normal mediastinum and madan. Normal visualized pulmonary arteries. There is atherosclerotic calcification of the aortic arch with tortuosity. There are diffuse degenerative changes of the visualized thoracic spine. Normal visualized ribs, clavicles, and shoulders. There is no demonstrated abnormality of the visualized soft tissue structures of the upper abdomen. RAD/Chest 1 View (Portable) IMPRESSION: Stable infiltrates in the right lung. Mild increased infiltrate in the left upper lobe. Electronically Signed: Alexis Morales, at 12:13 EDT , Service support ,
--- NOTE | 2020-07-11 06:53 | NURSING ---
Called into pt room. Pt tv on and she is unable to turn it off. Pt needs lots of encouragement to do things for herself.
[2020-07-11 07:50] LABS: Absolute Lymphocyte Count 0.44 X10^3/uL (0.83-4.51); Absolute Neutrophil Count 12.7 X10^3/uL (2.0-7.7); Basophil# 0.02 X10^3/uL; Basophil% 0.1 % (0-1); Hematocrit 41.1 % (37-47); Hemoglobin 13.1 g/dL (12.0-15.0); Lymphocyte # 0.44 X10^3/ul (4.0); Mean Corp Hgb Conc 31.9 g/dL (32-36); Mean Corpuscular Hgb 26.8 pg (27.0-32.0); Mean Platelet Vol. 11.6 fl (6.2-12.0); Monocyte# 1.32 X10^3/uL; Monocyte% 9.1 % (0-10); NRBC Flagged by Analyzer 0 % (0-5); Neutrophil # 12.69 X10^3/uL (2.7-7.7); Neutrophil % 87.1 % (47-70); POSITIVE DIFFERENTIAL YES; Platelet Count 152 K/mm3 (150-450); RBC Distribution Width CV 15.4 % (11.6-14.6); RBC Distribution Width SD 46.5 fl (35.1-43.9); Red Blood Count 4.89 M/mm3 (4.2-5.4); White Blood Count 14.6 K/mm3 (4.4-11.0)
[2020-07-11 08:12] LABS: Differential Indicated SCAN CRITERIA MET
[2020-07-11 08:19] LABS: Anion Gap 6 (5-15); BUN 37 mg/dL (7-18); BUN/Creat Ratio 24.5 RATIO (10-20); Calcium,Total 8.3 mg/dL (8.5-10.1); Chloride 104 mmol/L (98-107); Creatinine, Serum 1.51 mg/dL (0.55-1.02); EST Glomerular Filtration Rate 36 mL/min (>60); Est Glom Filt Rate - Afr Amer 44 mL/min (>60); Estimated Creatinine Clearance 27.03 ml/min; Glucose 93 mg/dL (74-106); Sodium Level 136 mmol/L (136-145)
--- NOTE | 2020-07-11 09:15 | PN_ITS ---
Patient Problems: Active and Suspected Problems (Last Reviewed 01/22/20 @ 15:[address] Philipp Ybarra MD) Weakness (Acute) Shortness of breath (Acute) Subjective: The patient was seen and examined at the bedside this morning. Events from the last 24 hours have been reviewed. This morning, the patient was documented to be saturating 2 L/min via nasal cannula with appropriate saturations. Over the course of the morning, the patient's oxygenation status worsened. Repeat chest x-ray obtained this morning revealed progressive bilateral infiltrates. The patient's work of breathing had increased and she was therefore transitioned back to the medical intensive care unit for further management. The patient does report feeling short of breath and is currently experiencing a great deal of nausea. Objective: The patient's most recent lab work, culture data and imaging studies have all been personally reviewed. Surface echocardiogram from April 2019 revealed a mildly dilated LV with significant segmental systolic dysfunction and an ejection fraction of 20%. Coronavirus PCR was positive on July 08. The remainder of the patient's infectious work-up has been unrevealing to date. - Physical Exam Vitals/I&O's: Vital Signs Temp Pulse Resp BP Pulse Ox 97.9 F 97 20 H 133/59 H 94 07/11/20 02:55 07/11/20 07:00 07/11/20 02:55 07/11/20 02:55 07/11/20 07:30 Oxygen Flow Rate (L/min) 2 Oxygen Delivery Method Nasal Cannula Weight: 271 lb 6.224 oz Body Mass Index (BMI) 49.0 Finger Stick Blood Glucose 88 Intake and Output for Last 24 Hours 07/09/20 07/10/20 07/11/20 23:59 23:59 23:59 Intake Total 1738.75 / 1978.75 1480 / 1480 120 / 120 Output Total 800 / 1150 2049 / 2049 350 / 350 Balance 938.75 / 828.75 -570 / -570 -230 / -230 General: Alert, - - Appears distressed, sitting in bedside recliner, with frequent dry heaving. HEENT: Atraumatic, Normocephalic Oral: No Gingival or Mucosal Lesions/ Ulcerations Neck: Supple, No Nodes, Trachea Midline Lungs: Diminished, Rales, Tachypneic Cardiovascular: Regular rate, Regular Rhythm, Normal S1, Normal S2 Abdomen: Bowel Sounds Present, Soft, Non Tender, Obese Extremities: No clubbing, No cyanosis, No edema Skin: No breakdown Musculoskeletal: No Tenderness to Palpation of Joints or Extremities Lymphatic: No Cervical, Supraclavicular, or Inguinal Adenopathy Neurological: Cranial nerves II-XII grossly intact, Neuro grossly intact Labs (Last 48 Hours) 07/09/20 07/09/20 07/09/20 10:59 16:35 21:28 WBC RBC Hgb Hct MCV MCH MCHC RDW Std Deviation RDW Coeff of Rahel Plt Count MPV Immature Gran % (Auto) Neut % (Auto) Lymph % (Auto) Giles % (Auto) Eos % (Auto) Baso % (Auto) Absolute Neuts (auto) Absolute Lymphs (auto) Nucleated RBC % Differential Comment Sodium Potassium Chloride Carbon Dioxide Anion Gap BUN Creatinine Estim Creat Clear Calc Est GFR (MDRD) Af Amer Est GFR (MDRD) Non-Af BUN/Creatinine Ratio Glucose Calcium Total Bilirubin AST ALT Alkaline Phosphatase Total Protein Albumin Globulin Albumin/Globulin Ratio POC Glucose 210 H 264 H 382 H 07/10/20 07/10/20 07/10/20 03:45 03:45 08:24 WBC 5.6 RBC 4.32 Hgb 11.6 L Hct 37.0 MCV 85.6 MCH 26.9 L MCHC 31.4 L RDW Std Deviation 46.7 H RDW Coeff of Rahel 15.1 H Plt Count 120 L MPV 12.0 Immature Gran % (Auto) 1.100 H Neut % (Auto) 81.0 H Lymph % (Auto) 6.1 L Giles % (Auto) 11.6 H Eos % (Auto) 0.0 Baso % (Auto) 0.2 Absolute Neuts (auto) 4.5 Absolute Lymphs (auto) 0.34 L Nucleated RBC % 0 Differential Comment SCANNED Sodium 136 Potassium 4.5 Chloride 104 Carbon Dioxide 28.0 Anion Gap 4 L BUN 27 H Creatinine 1.41 H Estim Creat Clear Calc 28.94 Est GFR (MDRD) Af Amer 47 L Est GFR (MDRD) Non-Af 39 L BUN/Creatinine Ratio 19.1 Glucose 241 H Calcium 8.0 L Total Bilirubin 0.40 AST 29 ALT 24 Alkaline Phosphatase 167 H Total Protein 6.0 L Albumin 2.2 L Globulin 3.8 Albumin/Globulin Ratio 0.6 L POC Glucose 214 H 08/27/20 08/27/20 08/27/20 12:18 16:26 21:12 WBC RBC Hgb Hct MCV MCH MCHC RDW Std Deviation RDW Coeff of Rahel Plt Count MPV Immature Gran % (Auto) Neut % (Auto) Lymph % (Auto) Giles % (Auto) Eos % (Auto) Baso % (Auto) Absolute Neuts (auto) Absolute Lymphs (auto) Nucleated RBC % Differential Comment Sodium Potassium Chloride Carbon Dioxide Anion Gap BUN Creatinine Estim Creat Clear Calc Est GFR (MDRD) Af Amer Est GFR (MDRD) Non-Af BUN/Creatinine Ratio Glucose Calcium Total Bilirubin AST ALT Alkaline Phosphatase Total Protein Albumin Globulin Albumin/Globulin Ratio POC Glucose 221 H 269 H 305 H 07/11/20 07/11/20 07:30 07:30 WBC 14.6 H RBC 4.89 Hgb 13.1 Hct 41.1 MCV 84.0 MCH 26.8 L MCHC 31.9 L RDW Std Deviation 46.5 H RDW Coeff of Rahel 15.4 H Plt Count 152 MPV 11.6 Immature Gran % (Auto) 0.700 Neut % (Auto) 87.1 H Lymph % (Auto) 3.0 L Giles % (Auto) 9.1 Eos % (Auto) 0.0 Baso % (Auto) 0.1 Absolute Neuts (auto) 12.7 H Absolute Lymphs (auto) 0.44 L Nucleated RBC % 0 Differential Comment Sodium 136 Potassium 4.0 Chloride 104 Carbon Dioxide 26.0 Anion Gap 6 BUN 37 H Creatinine 1.51 H Estim Creat Clear Calc 27.03 Est GFR (MDRD) Af Amer 44 L Est GFR (MDRD) Non-Af 36 L BUN/Creatinine Ratio 24.5 H Glucose 93 Calcium 8.3 L Total Bilirubin AST ALT Alkaline Phosphatase Total Protein Albumin Globulin Albumin/Globulin Ratio POC Glucose Microbiology 07/10/20 13:45 Sputum, Expectorated/Coughed Gram Stain - Final Clinical Impression(s) from Imaging Studies Chest X-Ray 07/08/20 19:38 IMPRESSION: Very low lung volumes. Probable mild congestion and interstitial edema. Multifocal atelectasis and/or infiltrates not excluded. Electronically Signed: Maurice Barnett MD at 20:00 EDT , Service support , Chest X-Ray 07/10/20 05:55 IMPRESSION: Worsening of aeration as outlined above compared to the most recent examination. Opacification left retrocardiac space may be due to increased rotation of the patient and positioning. Small left pleural effusion suspected. Electronically Signed: Sulma Harmon MD at 5:50 EDT , Service support , Current Medications Acetaminophen (Tylenol) 650 mg PO Q6H PRN PRN PRN Reason: Pain Score 1-10/Temp > 100.7 F Last Admin: 07/10/20 21:16 Dose: 650 mg Documented by: Al Hydroxide/Mg Hydroxide (Mylanta Ii) 30 ml PO Q6H PRN PRN PRN Reason: Gastric Burning Albuterol Sulfate (Proair Hfa (Sp) Surgery/Vent Pts) 1 puff INHALATION Q2H PRN PRN PRN Reason: SHORTNESS OF BREATH/WHEEZING Atorvastatin Calcium (Lipitor) 20 mg PO QHS [facility] Last Admin: 07/10/20 21:15 Dose: 20 mg Documented by: Carvedilol (Coreg) 12.5 mg PO BID [facility] Last Admin: 07/10/20 21:16 Dose: 12.5 mg Documented by: Cholecalciferol (Vitamin D (25mcg)) 5,000 unit PO DAILY [facility] Last Admin: 07/10/20 10:05 Dose: 5,000 unit Documented by: Dexamethasone (Decadron) 6 mg PO DAILY@0800 [facility] Last Admin: 07/10/20 10:04 Dose: 6 mg Documented by: Dextrose (D50w Syringe) 0 gm IV X1 PRN; Protocol PRN Reason: Hypoglycemia Enoxaparin Sodium (Lovenox) 120 mg SC Q12@0600,1800 [facility] Last Admin: 07/11/20 05:00 Dose: 120 mg Documented by: Furosemide (Lasix) 40 mg PO DAILY [facility] Last Admin: 07/10/20 10:04 Dose: 40 mg Documented by: Glucagon () 1 mg IM .X1 PRN PRN Reason: Hypoglycemia Guaifenesin (Mucinex) 1,200 mg PO BID [facility] Last Admin: 07/10/20 21:15 Dose: 1,200 mg Documented by: Sodium Chloride () 250 mls @ 15 mls/hr IV .[id number] PRN PRN Reason: Additional IVPB Infusion Insulin Glargine (Lantus (Bkc)) 35 units SC BID [facility] Last Admin: 07/10/20 21:18 Dose: 35 u Documented by: Insulin Human Lispro (Humalog Kwikpen (Bkc)) 0 unit SC 4X/DAYCM [facility]; Protocol Last Admin: 07/10/20 21:18 Dose: 6 u Documented by: Insulin Human Lispro (Humalog Kwikpen (Bkc)) 10 unit SC TIDAC [facility] Last Admin: 07/10/20 16:29 Dose: 10 u Documented by: Lisinopril (Zestril) 5 mg PO DAILY [facility] Last Admin: 07/10/20 10:04 Dose: 5 mg Documented by: Magnesium Oxide (Mag-Ox 400) 400 mg PO DAILY [facility] Last Admin: 07/10/20 10:04 Dose: 400 mg Documented by: Morphine Sulfate () 2 mg IV Q3H PRN PRN PRN Reason: Pain Score 6-10/10 Nitroglycerin (Nitrostat) 0.4 mg SUBLINGUAL Q5M PRN PRN Reason: CARDIAC/CHEST PAIN Nystatin (Mycostatin Powder) 1 applic TOPICAL 4X/DAY PRN PRN; Protocol PRN Reason: SKIN Oxycodone HCl (Oxyir) 5 mg PO Q4H PRN PRN PRN Reason: Pain Score 4-5/10 Prochlorperazine Edisylate (Compazine Iv) 5 mg IV Q4H PRN PRN PRN Reason: Breakthrough nausea/vomiting Last Admin: 07/11/20 04:07 Dose: 5 mg Documented by: Senna/Docusate Sodium (Senokot-S, Brittney-Colace) 2 tablet PO BID PRN PRN PRN Reason: Constipation Sertraline HCl (Zoloft) 100 mg PO DAILY [facility] Last Admin: 07/10/20 10:04 Dose: 100 mg Documented by: Sodium Chloride () 10 - 40 ml IV UD PRN PRN Reason: SALINE FLUSH Last Admin: 07/11/20 04:07 Dose: 10 ml Documented by: Sodium Chloride ([place] Nasal [place]) 2 spray NASAL Q2H PRN PRN Reason: NASAL DRYNESS Last Admin: 07/09/20 21:40 Dose: 2 spray Documented by: Medical Necessity - Tobacco Use Smoking Status: Never smoker Assessment/Plan All Active Problems (Last Reviewed 01/22/20 @ 15:[address] Philipp Ybarra MD) Weakness (Acute) Pneumonia due to COVID-19 virus (Acute) Shortness of breath (Acute) Rectal bleeding (Acute) RECOMMENDATIONS: 1. Place patient on Airvo heated high flow and target to maintain a saturation at or above 90%. 2. Avoid BiPAP for now, given nausea and concern for emesis. 3. Transition p.o. diuretics to IV. 4. Orders for Remdesevir and convalescent plasma have been placed. 5. Continue Decadron and therapeutic Lovenox. 6. Check BNP and troponin. IMPRESSIONS: 1. Acute hypoxemic respiratory insufficiency secondary to COVID pneumonia The patient initially presented to the hospital with symptoms concerning for coronavirus infection and subsequently tested positive on July 08. Although initially she was on very minimal supplemental oxygen, the patient decompensated from a respiratory perspective this morning. Chest x-ray revealed progressive bilateral infiltrates. Given her clinical decompensation, she was transferred back to the medical intensive care unit. The patient will be started on R emdesevir. Convalescent plasma has also been ordered. Decadron and therapeutic Lovenox will be continued. Supplemental oxygen can be titrated to maintain saturations at or above 90%. 2. History of nonischemic cardiomyopathy/heart failure with reduced ejection fraction Continue outpatient medication regimen including diuretics. Continue diuretic therapy as tolerated by hemodynamics and renal function. 3. Morbid obesity/diabetes mellitus/chronic kidney disease/depression/high risk for sleep disordered breathing Complicates care, management, recovery and prognosis. Continue home medications as indicated. CODE status: Discussed CODE status at length including difference between FULL code, DNR-CCA and DNR-CC status. Following discussions about the differences in these status, patient requested full CODE STATUS. Advanced Care Planning Face to Face Time: 12 minutes This note was generated with Wanderableation software. It may contain incorrect words, spelling, and punctuation that were not noted in checking the note before signing. Inpatient E&M: 72059 Subs Hosp L3 Procedures: 88767 Advncd Care Plan 30 Min
[2020-07-11] MEDS: Insulin Lispro 100 UNIT/ML INSULN.PEN 10 UNIT SC (09:31)
[2020-07-11] MEDS: Magnesium Oxide 400 MG Tablet PO (09:32)
[2020-07-11] MEDS: Lisinopril 5 MG Tablet PO (09:32)
[2020-07-11] MEDS: dexAMETHasone 4 MG Tablet 6 MG PO (09:32)
[2020-07-11] MEDS: Sertraline 100 MG Tablet PO (09:32)
[2020-07-11] MEDS: Furosemide 40 MG Tablet PO (09:32)
[2020-07-11] MEDS: guaiFENesin 1,200 MG Tablet 1200 MG PO ×2 (09:32→21:43)
[2020-07-11] MEDS: Carvedilol 12.5 MG Tablet PO ×2 (09:32→21:43)
[2020-07-11 10:16] LABS: Bedside Glucose 113 mg/dL (70-110)
--- NOTE | 2020-07-11 10:37 | CASEMGMT ---
JERO LOUIS NOTE: 0930: Spoke shantal/Domi @ [facility]. She states they are able to accept pt as long as pt is agreeable to wearing PPE while [facility] staff in her home. PT/OT notes have been reviewed and pt only able to ambulate 10-12 feet 07/10. Per Dr Parrish, she states she will talk with pt re: d/c plan and discuss option of SNF with pt. 1040: Update: Dr Parrish states pt will be transferred to ICU d/t respiratory status declining/pulse ox dropping. Call placed to [facility]. JERO LOUIS was informed the intake staff is in a morning meeting. VM message left with [facility] informing them that pt is being transferred to ICU and discharge plan is undetermined at this time. Josh PICKARD RN, CM
--- NOTE | 2020-07-11 10:40 | PCM.PN.HOSP ---
Patient Problems: Active and Suspected Problems (Last Reviewed 01/22/20 @ 15:[address] Philipp Ybarra MD) Weakness (Acute) Shortness of breath (Acute) Subjective: Pt states that she feels much worse today and is more SOB now than ever. Nsg states that he had to bump her O2 up to 6 L 2/2 desaturations into the mid 60's on 2 L. Upon my arrival the pt was sitting up in a chair and appeared to be struggling to breathe some. Her O2 was over her head and I replaced the 6 L and obtained a sat of 58%, this only improved to mid 60's with time and I then increased to 15L while awaiting further respiratory support in HF O2. Stats upto 88-90% with the increase and pt was moved back to the ICU. Pt wanting to be full code if it came to that. Vitals/I&O's: Vital Signs Temp Pulse Resp BP Pulse Ox 99.1 F 84 18 110/48 L 86 07/11/20 08:55 07/11/20 08:55 07/11/20 08:55 07/11/20 08:55 07/11/20 08:55 Oxygen Flow Rate (L/min) 6 Oxygen Delivery Method Nasal Cannula Weight: 123.1 kg Body Mass Index (BMI) 49.0 Finger Stick Blood Glucose 88 Intake and Output for Last 24 Hours 07/09/20 07/10/20 07/11/20 23:59 23:59 23:59 Intake Total 1738.75 / 1978.75 1480 / 1480 120 / 120 Output Total 800 / 1150 2049 / 2049 350 / 350 Balance 938.75 / 828.75 -570 / -570 -230 / -230 General: Alert, Oriented x3, Cooperative, Well developed, Well nourished, - - WF Obese, sitting up in a chair with supplemental O2 over her head, slower to respond than she is typically HEENT: Atraumatic, PERRLA, Normocephalic, EAC Clear Oral: Moist Mucosa, No Gingival or Mucosal Lesions/ Ulcerations Neck: Supple, No JVD, No Nodes, No Nuchal Rigidity, Trachea Midline, Thyroid Normal Size and Texture Lungs: No rhonchi, No wheeze, Rales - diffuse and scattered, Using Accessory Muscles Cardiovascular: Regular rate, Regular Rhythm, Normal S1, Normal S2, No murmurs, No rub noted, No Gallop Abdomen: Bowel Sounds Present, Soft, Non Tender, Non-Distended, No Hepato-splenomegaly, Obese Extremities: No clubbing, No edema, Capillary Refill Less than 3 Seconds, Cyanosis - B Fingertips, Peripheral Pulses Normal Skin: No rashes, No breakdown Musculoskeletal: No Tenderness to Palpation of Joints or Extremities, No Muscle Wasting, Arthritic Changes Lymphatic: No Cervical, Supraclavicular, or Inguinal Adenopathy Neurological: Cranial nerves II-XII grossly intact, Neuro grossly intact, Muscle tone normal, Coordination normal Psych/Mental Status: Appropriate, - - oriented x 3, sleepy, slower to respond than she typically is Microbiology Past 72 Hours 07/08/20 22:40 Blood Culture (Wb) - Left Forearm Blood Culture - Preliminary No growth in 48 hours. 07/08/20 22:30 Blood Culture (Wb) - Right Hand Blood Culture - Preliminary No growth in 48 hours. 07/10/20 13:45 Sputum, Expectorated/Coughed Gram Stain - Final 07/08/20 19:35 Urine, Random Streptococcus pneumoniae Antigen (M - Final 07/08/20 19:35 Urine, Random Legionella Antigen - Final 07/08/20 19:10 Mucosa - Nasopharyngeal Respiratory Panel (PCR) - Final Laboratory Results 07/10/20 12:18: POC Glucose 221 H 07/10/20 16:26: POC Glucose 269 H 07/10/20 21:12: POC Glucose 305 H 07/11/20 07:30: WBC 14.6 H, RBC 4.89, Hgb 13.1, Hct 41.1, MCV 84.0, MCH 26.8 L, MCHC 31.9 L, RDW Std Deviation 46.5 H, RDW Coeff of Rahel 15.4 H, Plt Count 152, MPV 11.6, Immature Gran % (Auto) 0.700, Neut % (Auto) 87.1 H, Lymph % (Auto) 3.0 L, [place] % (Auto) 9.1, Eos % (Auto) 0.0, Baso % (Auto) 0.1, Absolute Neuts (auto) 12.7 H, Absolute Lymphs (auto) 0.44 L, Nucleated RBC % 0 07/11/20 07:30: Sodium 136, Potassium 4.0, Chloride 104, Carbon Dioxide 26.0, Anion Gap 6, BUN 37 H, Creatinine 1.51 H, Estim Creat Clear Calc 27.03, Est GFR (MDRD) Af Amer 44 L, Est GFR (MDRD) Non-Af 36 L, BUN/Creatinine Ratio 24.5 H, Glucose 93, Calcium 8.3 L 07/11/20 08:58: POC Glucose 113 H Current Medications Acetaminophen (Tylenol) 650 mg PO Q6H PRN PRN PRN Reason: Pain Score 1-10/Temp > 100.7 F Last Admin: 07/10/20 21:16 Dose: 650 mg Documented by: Al Hydroxide/Mg Hydroxide (Mylanta Ii) 30 ml PO Q6H PRN PRN PRN Reason: Gastric Burning Albuterol Sulfate (Proair Hfa (Sp) Surgery/Vent Pts) 1 puff INHALATION Q2H PRN PRN PRN Reason: SHORTNESS OF BREATH/WHEEZING Atorvastatin Calcium (Lipitor) 20 mg PO QHS [facility] Last Admin: 07/10/20 21:15 Dose: 20 mg Documented by: Carvedilol (Coreg) 12.5 mg PO BID [facility] Last Admin: 07/11/20 09:32 Dose: 12.5 mg Documented by: Cholecalciferol (Vitamin D (25mcg)) 5,000 unit PO DAILY [facility] Last Admin: 07/11/20 09:32 Dose: 5,000 unit Documented by: Dexamethasone (Decadron) 6 mg PO DAILY@0800 [facility] Last Admin: 07/11/20 09:32 Dose: 6 mg Documented by: Dextrose (D50w Syringe) 0 gm IV X1 PRN; Protocol PRN Reason: Hypoglycemia Enoxaparin Sodium (Lovenox) 120 mg SC Q12@0600,1800 [facility] Last Admin: 07/11/20 05:00 Dose: 120 mg Documented by: Furosemide (Lasix) 40 mg PO DAILY [facility] Last Admin: 07/11/20 09:32 Dose: 40 mg Documented by: Glucagon () 1 mg IM .X1 PRN PRN Reason: Hypoglycemia Guaifenesin (Mucinex) 1,200 mg PO BID [facility] Last Admin: 07/11/20 09:32 Dose: 1,200 mg Documented by: Sodium Chloride () 250 mls @ 15 mls/hr IV .[id number] PRN PRN Reason: Additional IVPB Infusion Remdesivir (Investigational) (100 mg/ Sodium Chloride) 250 mls @ 125 mls/hr IV DAILY [facility]; Protocol Stop: 07/15/20 11:59 Insulin Glargine (Lantus (Bkc)) 35 units SC BID [facility] Last Admin: 07/11/20 09:35 Dose: 35 u Documented by: Insulin Human Lispro (Humalog Kwikpen (Bk)) 0 unit SC 4X/DAYCM [facility]; Protocol Last Admin: 07/11/20 09:32 Dose: Not Given Documented by: Insulin Human Lispro (Humalog Kwikpen (Bk)) 10 unit SC TIDAC [facility] Last Admin: 07/11/20 09:31 Dose: 10 u Documented by: Lisinopril (Zestril) 5 mg PO DAILY [facility] Last Admin: 07/11/20 09:32 Dose: 5 mg Documented by: Magnesium Oxide (Mag-Ox 400) 400 mg PO DAILY [facility] Last Admin: 07/11/20 09:32 Dose: 400 mg Documented by: Morphine Sulfate () 2 mg IV Q3H PRN PRN PRN Reason: Pain Score 6-10/10 Nitroglycerin (Nitrostat) 0.4 mg SUBLINGUAL Q5M PRN PRN Reason: CARDIAC/CHEST PAIN Nystatin (Mycostatin Powder) 1 applic TOPICAL 4X/DAY PRN PRN; Protocol PRN Reason: SKIN Oxycodone HCl (Oxyir) 5 mg PO Q4H PRN PRN PRN Reason: Pain Score 4-5/10 Prochlorperazine Edisylate (Compazine Iv) 5 mg IV Q4H PRN PRN PRN Reason: Breakthrough nausea/vomiting Last Admin: 07/11/20 04:07 Dose: 5 mg Documented by: Senna/Docusate Sodium (Senokot-S, Brittney-Colace) 2 tablet PO BID PRN PRN PRN Reason: Constipation Sertraline HCl (Zoloft) 100 mg PO DAILY [facility] Last Admin: 07/11/20 09:32 Dose: 100 mg Documented by: Sodium Chloride () 10 - 40 ml IV UD PRN PRN Reason: SALINE FLUSH Last Admin: 07/11/20 04:07 Dose: 10 ml Documented by: Sodium Chloride ([place] Nasal [place]) 2 spray NASAL Q2H PRN PRN Reason: NASAL DRYNESS Last Admin: 07/09/20 21:40 Dose: 2 spray Documented by: STROKE Vital Signs/Narrative: Vital Signs Temp Pulse Resp BP Pulse Ox 07/11/20 08:55 99.1 F 84 18 110/48 L 86 07/11/20 07:30 94 07/11/20 07:00 97 Medical Necessity - Tobacco Use Smoking Status: Never smoker Assessment/Plan All Active Problems (Last Reviewed 01/22/20 @ 15:[address] Philipp Ybarra MD) Weakness (Acute) Pneumonia due to COVID-19 virus (Acute) Shortness of breath (Acute) Rectal bleeding (Acute) Acute Respiratory Failure 2/2 COVID-19 PNA -acute desaturation this am to 50's on RA on 6 L unable to get sat consistently > 68%--> n/c increased to 15 L and NRB requested--> sats to 90% with this -transfer to ICU and start HFNC -Decadron 6 mg daily as pt is requiring supplemental O2 (day 01/21) -Remdesivir initiated -considering convalescent plasma -continue therapeutic Lovenox dosing 120 BID -CXR today with worsening infiltrates -check BNP -check ABG -d/w Pulm/CCM -ID and pulm following HFrEF-compensated/CAD/ICM/HTN/HPL -[facility] 2015 showed 30 to 40% LAD and mid RCA, 60 to 70% and ostial LCD 30% -ECHO with severe segmental WMA/EF 20% -hold ACEI -continue PO lasix 40 mg BID -BNP is pending -monitor for s/o worsening failure Recent LGIB 2/2 Diverticular Bleed -10/2019 -c-scope done at that time--> removal of 1.5 cm polyp in descending colon -hgb stable -monitor closely with Full dose Lovenox DM-2 Uncontrolled -A1c was 12.2 in 07/2019 -on Lantus 20 mg BID at home -with steroids will need higher doses -decrease to 28 mg BID while on steroids--> if needs to be NPO will need to further reduce dose -continue Log 10 u with meals--> if needs to be NPO will d/c and just use SSI -continue Lipitor Mild Anemia -resolved CKD Stage 3 -sCr at baseline range -will monitor -bmp in am -BUN up 2/2 steroids Depression -continue Zoloft MO -BMI 49.2 -recommend wgt loss DVT prophylaxis -therapeutic dose Lovenox Code Status -Full Dispo -Transfer to ICU Inpatient E&M: 50962 Subs Hosp L3
[2020-07-11] MEDS: Ondansetron 4 MG/2 ML Vial IV (11:13)
[2020-07-11 11:20] LABS: Alkaline Phosphatase 162 U/L (45-117)
--- NOTE | 2020-07-11 11:38 | CASEMGMT ---
Social Work Received information that pt sister Meenu would like pt to be transferred to [facility] at time of discharge. Phone call placed to [facility] and they do not accept Covid positive patients. SW inquired if there are any other facilities nearby that accept Covid pt. and the only facility that she is aware of is [facility] in [place] ([phone]). Phone call to pt sister/CHIDI Avila to discuss d/c plans. No answer, no VM. Pt not medically stable enough to talk with SW on the phone at this time. SW will continue to follow. ANCA Santamaria
[2020-07-11 11:53] LABS: BNP,B-Type NATRIURETIC PEPTIDE 92.6 pg/mL (0-100)
--- NOTE | 2020-07-11 13:22 | PCM.PN.ID ---
Patient Problems: Active and Suspected Problems (Last Reviewed 01/22/20 @ 15:[address] Philipp Ybarra MD) Weakness (Acute) Shortness of breath (Acute) Subjective: Patient transferred to the ICU and currently on high flow nasal cannula 11 L O2. Responsive main complaint is nausea. Was started on Remdesevir this morning. Patient remains on low-dose dexamethasone. Objective: Alert responsive lungs are clear heart exam S1-S2 abdomen is obese but soft - Physical Exam Vitals/I&O's: Vital Signs Temp Pulse Resp BP Pulse Ox 99.1 F 84 18 110/48 L 90 07/11/20 08:55 07/11/20 08:55 07/11/20 08:55 07/11/20 08:55 07/11/20 10:55 Oxygen Flow Rate (L/min) 11 Oxygen Delivery Method Nasal Cannula Weight: 123.1 kg Body Mass Index (BMI) 49.0 Finger Stick Blood Glucose 88 Intake and Output for Last 24 Hours 07/09/20 07/10/20 07/11/20 23:59 23:59 23:59 Intake Total 1738.75 / 1978.75 1480 / 1480 120 / 120 Output Total 800 / 1150 2050 / 2050 350 / 350 Balance 938.75 / 828.75 -570 / -570 -230 / -230 Microbiology Past 72 Hours 07/10/20 13:45 Sputum, Expectorated/Coughed Gram Stain - Final 07/10/20 13:45 Sputum, Expectorated/Coughed Respiratory Culture - Preliminary Appears to be normal respiratory william. Further studies to follow. 07/08/20 22:40 Blood Culture (Wb) - Left Forearm Blood Culture - Preliminary No growth in 48 hours. 07/08/20 22:30 Blood Culture (Wb) - Right Hand Blood Culture - Preliminary No growth in 48 hours. 07/08/20 19:35 Urine, Random Streptococcus pneumoniae Antigen (M - Final 07/08/20 19:35 Urine, Random Legionella Antigen - Final 07/08/20 19:10 Mucosa - Nasopharyngeal Respiratory Panel (PCR) - Final Laboratory Results 07/10/20 16:26: POC Glucose 269 H 07/10/20 21:12: POC Glucose 305 H 07/11/20 07:30: WBC 14.6 H, RBC 4.89, Hgb 13.1, Hct 41.1, MCV 84.0, MCH 26.8 L, MCHC 31.9 L, RDW Std Deviation 46.5 H, RDW Coeff of Rahel 15.4 H, Plt Count 152, MPV 11.6, Immature Gran % (Auto) 0.700, Neut % (Auto) 87.1 H, Lymph % (Auto) 3.0 L, Mcintosh % (Auto) 9.1, Eos % (Auto) 0.0, Baso % (Auto) 0.1, Absolute Neuts (auto) 12.7 H, Absolute Lymphs (auto) 0.44 L, Nucleated RBC % 0 07/11/20 07:30: Sodium 136, Potassium 4.0, Chloride 104, Carbon Dioxide 26.0, Anion Gap 6, BUN 37 H, Creatinine 1.51 H, Estim Creat Clear Calc 27.03, Est GFR (MDRD) Af Amer 44 L, Est GFR (MDRD) Non-Af 36 L, BUN/Creatinine Ratio 24.5 H, Glucose 93, Calcium 8.3 L 07/11/20 07:30: Alkaline Phosphatase 162 H 07/11/20 07:30: B-Natriuretic Peptide 92.6 07/11/20 08:58: POC Glucose 113 H 07/11/20 11:50: Blood Type Cancelled, A1 Antigen Typing Cancelled, Rho(D) Type Cancelled 07/11/20 11:50: Blood Type O POSITIVE, Antibody Screen NEGATIVE 07/11/20 11:50: Troponin I < 0.015 Current Medications Acetaminophen (Tylenol) 650 mg PO Q6H PRN PRN PRN Reason: Pain Score 1-10/Temp > 100.7 F Last Admin: 07/10/20 21:16 Dose: 650 mg Documented by: Al Hydroxide/Mg Hydroxide (Mylanta Ii) 30 ml PO Q6H PRN PRN PRN Reason: Gastric Burning Albuterol Sulfate (Proair Hfa (Sp) Surgery/Vent Pts) 1 puff INHALATION Q2H PRN PRN PRN Reason: SHORTNESS OF BREATH/WHEEZING Atorvastatin Calcium (Lipitor) 20 mg PO QHS [facility] Last Admin: 07/10/20 21:15 Dose: 20 mg Documented by: Carvedilol (Coreg) 12.5 mg PO BID [facility] Last Admin: 07/11/20 09:32 Dose: 12.5 mg Documented by: Cholecalciferol (Vitamin D (25mcg)) 5,000 unit PO DAILY [facility] Last Admin: 07/11/20 09:32 Dose: 5,000 unit Documented by: Dexamethasone (Decadron) 6 mg PO DAILY@0800 [facility] Last Admin: 07/11/20 09:32 Dose: 6 mg Documented by: Dextrose (D50w Syringe) 0 gm IV X1 PRN; Protocol PRN Reason: Hypoglycemia Enoxaparin Sodium (Lovenox) 120 mg SC Q12@0600,1800 [facility] Last Admin: 07/11/20 05:00 Dose: 120 mg Documented by: Furosemide (Lasix) 40 mg IV BID@1000,1800 [facility] Glucagon () 1 mg IM .X1 PRN PRN Reason: Hypoglycemia Guaifenesin (Mucinex) 1,200 mg PO BID [facility] Last Admin: 07/11/20 09:32 Dose: 1,200 mg Documented by: Sodium Chloride () 250 mls @ 15 mls/hr IV .[id number] PRN PRN Reason: Additional IVPB Infusion Last Admin: 07/11/20 13:21 Dose: 15 mls/hr Documented by: Remdesivir (Investigational) (100 mg/ Sodium Chloride) 250 mls @ 125 mls/hr IV DAILY [facility]; Protocol Stop: 07/15/20 11:59 Insulin Glargine (Lantus (Bkc)) 28 units SC BID [facility] Insulin Human Lispro (Humalog Kwikpen (Bkc)) 0 unit SC 4X/DAYCM [facility]; Protocol Last Admin: 07/11/20 13:18 Dose: Not Given Documented by: Insulin Human Lispro (Humalog Kwikpen (Bkc)) 10 unit SC TIDAC [facility] Last Admin: 07/11/20 13:17 Dose: Not Given Documented by: Magnesium Oxide (Mag-Ox 400) 400 mg PO DAILY [facility] Last Admin: 07/11/20 09:32 Dose: 400 mg Documented by: Morphine Sulfate () 2 mg IV Q3H PRN PRN PRN Reason: Pain Score 6-10/10 Nystatin (Mycostatin Powder) 1 applic TOPICAL 4X/DAY PRN PRN; Protocol PRN Reason: SKIN Ondansetron HCl (Zofran) 4 mg IV Q6H PRN PRN PRN Reason: NAUSEA/VOMITING Last Admin: 07/11/20 11:13 Dose: 4 mg Documented by: Oxycodone HCl (Oxyir) 5 mg PO Q4H PRN PRN PRN Reason: Pain Score 4-5/10 Prochlorperazine Edisylate (Compazine Iv) 5 mg IV Q4H PRN PRN PRN Reason: Breakthrough nausea/vomiting Last Admin: 07/11/20 04:07 Dose: 5 mg Documented by: Senna/Docusate Sodium (Senokot-S, Brittney-Colace) 2 tablet PO BID PRN PRN PRN Reason: Constipation Sertraline HCl (Zoloft) 100 mg PO DAILY [facility] Last Admin: 07/11/20 09:32 Dose: 100 mg Documented by: Sodium Chloride () 10 - 40 ml IV UD PRN PRN Reason: SALINE FLUSH Last Admin: 07/11/20 04:07 Dose: 10 ml Documented by: Sodium Chloride ([place] Nasal [place]) 2 spray NASAL Q2H PRN PRN Reason: NASAL DRYNESS Last Admin: 07/09/20 21:40 Dose: 2 spray Documented by: Medical Necessity - Tobacco Use Smoking Status: Never smoker Route of nutrition/ use of supplements: [] Nutritional Intake: [] IV Site: [] Hightower Catheter: [] - Assessment/Plan COVID-19 in older female with underlying obesity heart disease. Currently on Remdesevir and low-dose dexamethasone. Continue supportive care.
[2020-07-11 13:30] LABS: Bedside Glucose 96 mg/dL (70-110)
[2020-07-11] MEDS: Remdesivir 200 MG IV x1 (Inital Dose)-All Patients 125 MG IV (13:35)
--- NOTE | 2020-07-11 14:31 | NURSING ---
Updated pt salesperson shoes Sreekanth, to pt being moved to ICU 204 and increased O2 requirements. Sreekanth thanked this nurse for update.
[2020-07-11 16:17] LABS: M R Staph aureus DNA By PCR Negative (Negative); Probe Check PASS; Specimen Processing Control PASS
--- NOTE | 2020-07-11 16:52 | CPS ---
Airvo started at this time. 31 60L 60%
[2020-07-11] MEDS: Furosemide 40 MG/4 ML Vial IV (17:09)
[2020-07-11 18:01] LABS: Bedside Glucose 116 mg/dL (70-110)
[2020-07-11] MEDS: Atorvastatin Calcium 20 MG Tablet PO (21:43)
[2020-07-11] MEDS: Insulin Lispro 100 UNIT/ML INSULN.PEN SC (21:44)
[2020-07-11 22:06] LABS: Bedside Glucose 222 mg/dL (70-110)
[2020-07-12] VITALS (66 sets, daily range): BP systolic 53–159; BP diastolic 27–118; PULSE 59–90; RESP 12–30; TEMP 36.9–38.9; O2SAT 82–99; BMI 48.9
[2020-07-12] MEDS: Acetaminophen 325 MG Tablet 650 MG PO (00:57)
[2020-07-12 01:01] LABS: Bedside Glucose 211 mg/dL (70-110)
[2020-07-12] MEDS: Nystatin Powder 15gm Bottle 1 APPLIC TOPICAL (01:17)
[2020-07-12 04:10] LABS: Hematocrit 38.5 % (37-47); Hemoglobin 12.2 g/dL (12.0-15.0); Mean Corp Hgb Conc 31.7 g/dL (32-36); Mean Corpuscular Hgb 26.6 pg (27.0-32.0); Mean Corpuscular Volume 84.1 fL (81-99); Mean Platelet Vol. 12.6 fl (6.2-12.0); Platelet Count 131 K/mm3 (150-450); RBC Distribution Width SD 45.6 fl (35.1-43.9); Red Blood Count 4.58 M/mm3 (4.2-5.4); White Blood Count 13.3 K/mm3 (4.4-11.0)
[2020-07-12 04:25] LABS: ALB/GLOB Ratio 0.6 RATIO (0.9-2.4); AST(SGOT) 29 U/L (15-37); Alanine Aminotransfer ALT/SGPT 22 U/L (13-56); Albumin, Serum 2.3 g/dL (3.2-5.0); Alkaline Phosphatase 130 U/L (45-117); Anion Gap 7 (5-15); BUN 42 mg/dL (7-18); BUN/Creat Ratio 25.5 RATIO (10-20); Calcium,Total 7.9 mg/dL (8.5-10.1); Chloride 98 mmol/L (98-107); Creatinine, Serum 1.65 mg/dL (0.55-1.02); EST Glomerular Filtration Rate 33 mL/min (>60); Est Glom Filt Rate - Afr Amer 39 mL/min (>60); Estimated Creatinine Clearance 24.73 ml/min; Globulin 4.1 g/dL (2.2-4.2); Glucose 165 mg/dL (74-106); Protein, Total 6.4 g/dL (6.4-8.2); Sodium Level 133 mmol/L (136-145)
[2020-07-12] MEDS: Enoxaparin 120 MG/0.8 ML Syringe SC ×2 (05:44→16:23)
--- NOTE | 2020-07-12 05:54 | PN_ITS ---
Subjective: The patient was seen and examined at the bedside this morning. Events from the last 24 hours have been reviewed. The patient is currently afebrile and hemodynamically stable. The patient was started on Remdesevir yesterday and did receive convalescent plasma overnight. She was maintained on airvo heated high flow, but had to be transitioned to BiPAP this morning due to persistent oxygen desaturations. Objective: The patient's most recent lab work, culture data and imaging studies have all been personally reviewed. Surface echocardiogram from April 2019 revealed a mildly dilated LV with significant segmental systolic dysfunction and an ejection fraction of 20%. Coronavirus PCR was positive on July 08. The r emainder of the patient's infectious work-up has been unrevealing to date. General: Alert, Cooperative, - - Morbidly obese. BiPAP mask in place. HEENT: Atraumatic, Normocephalic Oral: No Gingival or Mucosal Lesions/ Ulcerations Neck: Supple, No Nodes, Trachea Midline Lungs: No rhonchi, No wheeze, Diminished, Rales Cardiovascular: Regular rate, Regular Rhythm, Normal S1, Normal S2 Abdomen: Bowel Sounds Present, Soft, Non Tender, Obese Extremities: No clubbing, No cyanosis, No edema Skin: No breakdown Musculoskeletal: No Tenderness to Palpation of Joints or Extremities Lymphatic: No Cervical, Supraclavicular, or Inguinal Adenopathy Neurological: Neuro grossly intact Psych/Mental Status: Flat Affect Vital Signs Temp Pulse Resp BP Pulse Ox 98.4 F 79 21 H 119/64 93 07/12/20 04:00 07/12/20 05:00 07/12/20 05:00 07/12/20 05:00 07/12/20 05:00 Oxygen Flow Rate (L/min) 10 Oxygen Delivery Method CPAP Weight: 267 lb 3.204 oz Body Mass Index (BMI) 49.0 Finger Stick Blood Glucose 88 Intake and Output for Last 24 Hours 07/10/20 07/11/20 07/12/20 23:59 23:59 23:59 Intake Total 1480 / 1480 723.5 / 1203.5 741 / 741 Output Total 2049 / 2049 1150 / 1350 300 / 300 Balance -570 / -570 -426.5 / -146.5 441 / 441 Labs (Last 48 Hours) 08/27/20 08/27/20 08/27/20 08:24 12:18 16:26 WBC RBC Hgb Hct MCV MCH MCHC RDW Std Deviation RDW Coeff of Rahel Plt Count MPV Immature Gran % (Auto) Neut % (Auto) Lymph % (Auto) [place] % (Auto) Eos % (Auto) Baso % (Auto) Absolute Neuts (auto) Absolute Lymphs (auto) Nucleated RBC % Sodium Potassium Chloride Carbon Dioxide Anion Gap BUN Creatinine Estim Creat Clear Calc Est GFR (MDRD) Af Amer Est GFR (MDRD) Non-Af BUN/Creatinine Ratio Glucose Calcium Total Bilirubin AST ALT Alkaline Phosphatase Troponin I B-Natriuretic Peptide Total Protein Albumin Globulin Albumin/Globulin Ratio MRSA (PCR) POC Glucose 214 H 221 H 269 H Blood Type A1 Antigen Typing Rho(D) Type Antibody Screen 07/10/20 07/11/20 07/11/20 21:12 07:30 07:30 WBC 14.6 H RBC 4.89 Hgb 13.1 Hct 41.1 MCV 84.0 MCH 26.8 L MCHC 31.9 L RDW Std Deviation 46.5 H RDW Coeff of Rahel 15.4 H Plt Count 152 MPV 11.6 Immature Gran % (Auto) 0.700 Neut % (Auto) 87.1 H Lymph % (Auto) 3.0 L [place] % (Auto) 9.1 Eos % (Auto) 0.0 Baso % (Auto) 0.1 Absolute Neuts (auto) 12.7 H Absolute Lymphs (auto) 0.44 L Nucleated RBC % 0 Sodium 136 Potassium 4.0 Chloride 104 Carbon Dioxide 26.0 Anion Gap 6 BUN 37 H Creatinine 1.51 H Estim Creat Clear Calc 27.03 Est GFR (MDRD) Af Amer 44 L Est GFR (MDRD) Non-Af 36 L BUN/Creatinine Ratio 24.5 H Glucose 93 Calcium 8.3 L Total Bilirubin AST ALT Alkaline Phosphatase Troponin I B-Natriuretic Peptide Total Protein Albumin Globulin Albumin/Globulin Ratio MRSA (PCR) POC Glucose 305 H Blood Type A1 Antigen Typing Rho(D) Type Antibody Screen 07/11/20 07/11/20 07/11/20 07:30 07:30 08:58 WBC RBC Hgb Hct MCV MCH MCHC RDW Std Deviation RDW Coeff of Rahel Plt Count MPV Immature Gran % (Auto) Neut % (Auto) Lymph % (Auto) [place] % (Auto) Eos % (Auto) Baso % (Auto) Absolute Neuts (auto) Absolute Lymphs (auto) Nucleated RBC % Sodium Potassium Chloride Carbon Dioxide Anion Gap BUN Creatinine Estim Creat Clear Calc Est GFR (MDRD) Af Amer Est GFR (MDRD) Non-Af BUN/Creatinine Ratio Glucose Calcium Total Bilirubin AST ALT Alkaline Phosphatase 162 H Troponin I B-Natriuretic Peptide 92.6 Total Protein Albumin Globulin Albumin/Globulin Ratio MRSA (PCR) POC Glucose 113 H Blood Type A1 Antigen Typing Rho(D) Type Antibody Screen 07/11/20 07/11/20 07/11/20 11:50 11:50 11:50 WBC RBC Hgb Hct MCV MCH MCHC RDW Std Deviation RDW Coeff of Rahel Plt Count MPV Immature Gran % (Auto) Neut % (Auto) Lymph % (Auto) [place] % (Auto) Eos % (Auto) Baso % (Auto) Absolute Neuts (auto) Absolute Lymphs (auto) Nucleated RBC % Sodium Potassium Chloride Carbon Dioxide Anion Gap BUN Creatinine Estim Creat Clear Calc Est GFR (MDRD) Af Amer Est GFR (MDRD) Non-Af BUN/Creatinine Ratio Glucose Calcium Total Bilirubin AST ALT Alkaline Phosphatase Troponin I < 0.015 B-Natriuretic Peptide Total Protein Albumin Globulin Albumin/Globulin Ratio MRSA (PCR) POC Glucose Blood Type Cancelled O POSITIVE A1 Antigen Typing Cancelled Rho(D) Type Cancelled Antibody Screen NEGATIVE 07/11/20 07/11/20 07/11/20 13:12 13:15 17:03 WBC RBC Hgb Hct MCV MCH MCHC RDW Std Deviation RDW Coeff of Rahel Plt Count MPV Immature Gran % (Auto) Neut % (Auto) Lymph % (Auto) [place] % (Auto) Eos % (Auto) Baso % (Auto) Absolute Neuts (auto) Absolute Lymphs (auto) Nucleated RBC % Sodium Potassium Chloride Carbon Dioxide Anion Gap BUN Creatinine Estim Creat Clear Calc Est GFR (MDRD) Af Amer Est GFR (MDRD) Non-Af BUN/Creatinine Ratio Glucose Calcium Total Bilirubin AST ALT Alkaline Phosphatase Troponin I B-Natriuretic Peptide Total Protein Albumin Globulin Albumin/Globulin Ratio MRSA (PCR) Negative POC Glucose 96 116 H Blood Type A1 Antigen Typing Rho(D) Type Antibody Screen 07/11/20 07/12/20 07/12/20 21:40 00:41 04:00 WBC 13.3 H RBC 4.58 Hgb 12.2 Hct 38.5 MCV 84.1 MCH 26.6 L MCHC 31.7 L RDW Std Deviation 45.6 H RDW Coeff of Rahel 15.0 H Plt Count 131 L MPV 12.6 H Immature Gran % (Auto) Neut % (Auto) Lymph % (Auto) [place] % (Auto) Eos % (Auto) Baso % (Auto) Absolute Neuts (auto) Absolute Lymphs (auto) Nucleated RBC % Sodium Potassium Chloride Carbon Dioxide Anion Gap BUN Creatinine Estim Creat Clear Calc Est GFR (MDRD) Af Amer Est GFR (MDRD) Non-Af BUN/Creatinine Ratio Glucose Calcium Total Bilirubin AST ALT Alkaline Phosphatase Troponin I B-Natriuretic Peptide Total Protein Albumin Globulin Albumin/Globulin Ratio MRSA (PCR) POC Glucose 222 H 211 H Blood Type A1 Antigen Typing Rho(D) Type Antibody Screen 07/12/20 04:00 WBC RBC Hgb Hct MCV MCH MCHC RDW Std Deviation RDW Coeff of Rahel Plt Count MPV Immature Gran % (Auto) Neut % (Auto) Lymph % (Auto) [place] % (Auto) Eos % (Auto) Baso % (Auto) Absolute Neuts (auto) Absolute Lymphs (auto) Nucleated RBC % Sodium 133 L Potassium 4.0 Chloride 98 Carbon Dioxide 28.0 Anion Gap 7 BUN 42 H Creatinine 1.65 H Estim Creat Clear Calc 24.73 Est GFR (MDRD) Af Amer 39 L Est GFR (MDRD) Non-Af 33 L BUN/Creatinine Ratio 25.5 H Glucose 165 H Calcium 7.9 L Total Bilirubin 0.50 AST 29 ALT 22 Alkaline Phosphatase 130 H Troponin I B-Natriuretic Peptide Total Protein 6.4 Albumin 2.3 L Globulin 4.1 Albumin/Globulin Ratio 0.6 L MRSA (PCR) POC Glucose Blood Type A1 Antigen Typing Rho(D) Type Antibody Screen Microbiology 07/10/20 13:45 Sputum, Expectorated/Coughed Gram Stain - Final 07/10/20 13:45 Sputum, Expectorated/Coughed Respiratory Culture - Preliminary Appears to be normal respiratory william. Further studies to follow. 07/08/20 22:40 Blood Culture (Wb) - Left Forearm Blood Culture - Preliminary No growth in 48 hours. 07/08/20 22:30 Blood Culture (Wb) - Right Hand Blood Culture - Preliminary No growth in 48 hours. Clinical Impression(s) from Imaging Studies Chest X-Ray 07/08/20 19:38 IMPRESSION: Very low lung volumes. Probable mild congestion and interstitial edema. Multifocal atelectasis and/or infiltrates not excluded. Electronically Signed: Maurice Barnett MD at 20:00 EDT , Service support , Chest X-Ray 07/10/20 05:55 IMPRESSION: Worsening of aeration as outlined above compared to the most recent examination. Opacification left retrocardiac space may be due to increased rotation of the patient and positioning. Small left pleural effusion suspected. Electronically Signed: Sulma Harmon MD at 5:50 EDT , Service support , Chest X-Ray 07/11/20 05:25 IMPRESSION: Stable infiltrates in the right lung. Mild increased infiltrate in the left upper lobe. Electronically Signed: Alexis Morales at 12:13 EDT , Service support , Medical Necessity - Tobacco Use Smoking Status: Never smoker Assessment/Plan All Active Problems (Last Reviewed 01/22/20 @ 15:[address] Philipp Ybarra MD) Weakness (Acute) Pneumonia due to COVID-19 virus (Acute) Shortness of breath (Acute) Rectal bleeding (Acute) RECOMMENDATIONS: 1. Continue BiPAP therapy and wean FiO2 to maintain oxygen saturations at or above 90%. 2. Continue Decadron, Remdesevir and therapeutic Lovenox. 3. Continue diuretic regimen as tolerated by hemodynamics and renal function. IMPRESSIONS: 1. Acute hypoxemic respiratory insufficiency secondary to COVID pneumonia The patient initially presented to the hospital with symptoms concerning for coronavirus infection and subsequently tested positive on July 08. Although initially she was on very minimal supplemental oxygen, the patient decompensated from a respiratory perspective. Chest x-ray revealed progressive bilateral infiltrates. The patient was initially maintained on heated high flow supplemental oxygen and was then transitioned to BiPAP due to persistent oxygen desaturations. She remains on Decadron, therapeutic Lovenox and is receiving Remdesevir. The patient also received convalescent plasma on July 11. She will remain on her scheduled diuretic regimen as tolerated by hemodynamics and renal function. FiO2 will be weaned to maintain oxygen saturations at or above 90%. 2. History of nonischemic cardiomyopathy/heart failure with reduced ejection fraction Continue outpatient medication regimen and diuretic therapy as tolerated by hemodynamics and renal function. 3. Morbid obesity/diabetes mellitus/chronic kidney disease/depression/high risk for sleep disordered breathing Complicates care, management, recovery and prognosis. Continue home medications as indicated. CODE status: Discussed CODE status at length including difference between FULL code, DNR-CCA and DNR-CC status. Following discussions about the differences in these status, patient requested FULL CODE STATUS. This note was generated with [employer] dictation software. It may contain incorrect words, spelling, and punctuation that were not noted in checking the note before signing. Inpatient E&M: [id number] [facility] L[facility]
[2020-07-12 06:30] LABS: Allen Test Positive; Base Excess 2 mmol/L (-2 to +2); Bicarbonate 27.1 mmol/L (22-26); Blood Gas Specimen Type ART; FI02 94; O2 Delivery Device CPAP; PO2 46 mmHG (75-100); SITE L Radial; SO2 82 % (95-99); Total Carbon Dioxide 28 mmol/L; pCO2 43.1 mmHg (35-45); pH 7.41 (7.35-7.45)
--- NOTE | 2020-07-12 07:33 | PCM.PN.HOSP ---
Patient Problems: Active and Suspected Problems (Last Reviewed 01/22/20 @ 15:[address] Philipp Ybarra MD) Weakness (Acute) Shortness of breath (Acute) Subjective: Pt is lying in bed and now on NIV. FiO2 is now 100%. Was switched from CPAP to BIPAP early this am for desaturations. Vitals/I&O's: Vital Signs Temp Pulse Resp BP Pulse Ox 98.4 F 85 25 H 135/93 H 94 07/12/20 04:00 07/12/20 07:00 07/12/20 07:00 07/12/20 07:00 07/12/20 07:00 Oxygen Flow Rate (L/min) 10 Oxygen Delivery Method Bi-pap Weight: 121.2 kg Body Mass Index (BMI) 49.0 Finger Stick Blood Glucose 88 Intake and Output for Last 24 Hours 07/10/20 07/11/20 07/12/20 23:59 23:59 23:59 Intake Total 1480 / 1480 723.5 / 1203.5 741 / 741 Output Total 2049 / 2049 1150 / 1350 300 / 300 Balance -570 / -570 -426.5 / -146.5 441 / 441 General: Alert, Oriented x3, Cooperative, No apparent distress, Well developed, Well nourished, - - MO WF lying in bed on NIV, comfortable breathing at this point, appears to be resting comfortably HEENT: Atraumatic, PERRLA, EOMI, Normocephalic, EAC Clear Oral: - - BIPAP mask in place and unable to assess Neck: Supple, No JVD, Trachea Midline, Thyroid Normal Size and Texture Lungs: No rhonchi, No wheeze, Rales - diffuse fine and less course than yesterday Cardiovascular: Regular rate, Regular Rhythm, Normal S1, Normal S2, No murmurs, No Ectopic Activity, No rub noted, No Gallop Abdomen: Bowel Sounds Present, Soft, Non Tender, Non-Distended, Obese Extremities: No clubbing, No cyanosis, No edema, Capillary Refill Less than 3 Seconds, Peripheral Pulses Normal Skin: No rashes, No breakdown Musculoskeletal: No Tenderness to Palpation of Joints or Extremities, No Muscle Wasting, Arthritic Changes Lymphatic: No Cervical, Supraclavicular, or Inguinal Adenopathy Neurological: Cranial nerves II-XII grossly intact, Deep Tendon Reflexes 2+/4 and Symmetrical, Neuro grossly intact Psych/Mental Status: Flat Affect, - - Alert with Mask in place and orientation unable to be assessed Microbiology Past 72 Hours 07/10/20 13:45 Sputum, Expectorated/Coughed Gram Stain - Final 07/10/20 13:45 Sputum, Expectorated/Coughed Respiratory Culture - Preliminary Appears to be normal respiratory william. Further studies to follow. 07/08/20 22:40 Blood Culture (Wb) - Left Forearm Blood Culture - Preliminary No growth in 48 hours. 07/08/20 22:30 Blood Culture (Wb) - Right Hand Blood Culture - Preliminary No growth in 48 hours. Laboratory Results 07/11/20 07:30: WBC 14.6 H, RBC 4.89, Hgb 13.1, Hct 41.1, MCV 84.0, MCH 26.8 L, MCHC 31.9 L, RDW Std Deviation 46.5 H, RDW Coeff of Rahel 15.4 H, Plt Count 152, MPV 11.6, Immature Gran % (Auto) 0.700, Neut % (Auto) 87.1 H, Lymph % (Auto) 3.0 L, [place] % (Auto) 9.1, Eos % (Auto) 0.0, Baso % (Auto) 0.1, Absolute Neuts (auto) 12.7 H, Absolute Lymphs (auto) 0.44 L, Nucleated RBC % 0 07/11/20 07:30: Sodium 136, Potassium 4.0, Chloride 104, Carbon Dioxide 26.0, Anion Gap 6, BUN 37 H, Creatinine 1.51 H, Estim Creat Clear Calc 27.03, Est GFR (MDRD) Af Amer 44 L, Est GFR (MDRD) Non-Af 36 L, BUN/Creatinine Ratio 24.5 H, Glucose 93, Calcium 8.3 L 07/11/20 07:30: Alkaline Phosphatase 162 H 07/11/20 07:30: B-Natriuretic Peptide 92.6 07/11/20 08:58: POC Glucose 113 H 07/11/20 11:50: Blood Type Cancelled, A1 Antigen Typing Cancelled, Rho(D) Type Cancelled 07/11/20 11:50: Blood Type O POSITIVE, Antibody Screen NEGATIVE 07/11/20 11:50: Troponin I < 0.015 07/11/20 13:12: POC Glucose 96 07/11/20 13:15: MRSA (PCR) Negative 07/11/20 17:03: POC Glucose 116 H 07/11/20 21:40: POC Glucose 222 H 07/12/20 00:41: POC Glucose 211 H 07/12/20 04:00: WBC 13.3 H, RBC 4.58, Hgb 12.2, Hct 38.5, MCV 84.1, MCH 26.6 L, MCHC 31.7 L, RDW Std Deviation 45.6 H, RDW Coeff of Rahel 15.0 H, Plt Count 131 L, MPV 12.6 H 07/12/20 04:00: Sodium 133 L, Potassium 4.0, Chloride 98, Carbon Dioxide 28.0, Anion Gap 7, BUN 42 H, Creatinine 1.65 H, Estim Creat Clear Calc 24.73, Est GFR (MDRD) Af Amer 39 L, Est GFR (MDRD) Non-Af 33 L, BUN/Creatinine Ratio 25.5 H, Glucose 165 H, Calcium 7.9 L, Total Bilirubin 0.50, AST 29, ALT 22, Alkaline Phosphatase 130 H, Total Protein 6.4, Albumin 2.3 L, Globulin 4.1, Albumin/Globulin Ratio 0.6 L 07/12/20 06:22: Specimen Type ART, Sample Site L Radial, pH 7.41, Bicarbonate Actual 27.1 H, Total CO2 28, Base Excess 2, O2 Saturation 82 L, O2 % 94, ABG pCO2 43.1, ABG pO2 46 L, Sinan Test Positive, O2 Delivery Device CPAP Current Medications Acetaminophen (Tylenol) 650 mg PO Q6H PRN PRN PRN Reason: Pain Score 1-10/Temp > 100.7 F Last Admin: 07/12/20 00:57 Dose: 650 mg Documented by: Al Hydroxide/Mg Hydroxide (Mylanta Ii) 30 ml PO Q6H PRN PRN PRN Reason: Gastric Burning Albuterol Sulfate (Proair Hfa (Sp) Surgery/Vent Pts) 1 puff INHALATION Q2H PRN PRN PRN Reason: SHORTNESS OF BREATH/WHEEZING Atorvastatin Calcium (Lipitor) 20 mg PO QHS SUNNY Last Admin: 07/11/20 21:43 Dose: 20 mg Documented by: Carvedilol (Coreg) 12.5 mg PO BID [facility] Last Admin: 07/11/20 21:43 Dose: 12.5 mg Documented by: Cholecalciferol (Vitamin D (25mcg)) 5,000 unit PO DAILY [facility] Last Admin: 07/11/20 09:32 Dose: 5,000 unit Documented by: Dexamethasone (Decadron) 6 mg PO DAILY@0800 [facility] Last Admin: 07/11/20 09:32 Dose: 6 mg Documented by: Dextrose (D50w Syringe) 0 gm IV X1 PRN; Protocol PRN Reason: Hypoglycemia Enoxaparin Sodium (Lovenox) 120 mg SC Q12@0600,1800 [facility] Last Admin: 07/12/20 05:44 Dose: 120 mg Documented by: Furosemide (Lasix) 40 mg IV BID@1000,1800 [facility] Last Admin: 07/11/20 17:09 Dose: 40 mg Documented by: Glucagon () 1 mg IM .X1 PRN PRN Reason: Hypoglycemia Guaifenesin (Mucinex) 1,200 mg PO BID [facility] Last Admin: 07/11/20 21:43 Dose: 1,200 mg Documented by: Sodium Chloride () 250 mls @ 15 mls/hr IV .[id number] PRN PRN Reason: Additional IVPB Infusion Last Infusion: 07/12/20 05:18 Dose: 0 mls/hr Documented by: Remdesivir (Investigational) (100 mg/ Sodium Chloride) 250 mls @ 125 mls/hr IV DAILY [facility]; Protocol Stop: 07/15/20 11:59 Insulin Glargine (Lantus (Bkc)) 28 units SC BID [facility] Last Admin: 07/11/20 21:44 Dose: 28 units Documented by: Insulin Human Lispro (Humalog Kwikpen (Bkc)) 0 unit SC 4X/DAYCM [facility]; Protocol Last Admin: 07/11/20 21:44 Dose: 4 u Documented by: Insulin Human Lispro (Humalog Kwikpen (Bkc)) 10 unit SC TIDAC [facility] Last Admin: 07/11/20 17:58 Dose: Not Given Documented by: Magnesium Oxide (Mag-Ox 400) 400 mg PO DAILY [facility] Last Admin: 07/11/20 09:32 Dose: 400 mg Documented by: Nystatin (Mycostatin Powder) 1 applic TOPICAL 4X/DAY PRN PRN; Protocol PRN Reason: SKIN Last Admin: 07/12/20 01:17 Dose: 1 applicatio Documented by: Ondansetron HCl (Zofran) 4 mg IV Q6H PRN PRN PRN Reason: NAUSEA/VOMITING Last Admin: 07/11/20 11:13 Dose: 4 mg Documented by: Senna/Docusate Sodium (Senokot-S, Brittney-Colace) 2 tablet PO BID PRN PRN PRN Reason: Constipation Sertraline HCl (Zoloft) 100 mg PO DAILY SUNNY Last Admin: 07/11/20 09:32 Dose: 100 mg Documented by: Sodium Chloride () 10 - 40 ml IV UD PRN PRN Reason: SALINE FLUSH Last Admin: 07/11/20 04:07 Dose: 10 ml Documented by: Sodium Chloride ([place] Nasal [place]) 2 spray NASAL Q2H PRN PRN Reason: NASAL DRYNESS Last Admin: 07/09/20 21:40 Dose: 2 spray Documented by: STROKE Vital Signs/Narrative: Vital Signs Temp Pulse Resp BP Pulse Ox 07/12/20 07:00 85 25 H 135/93 H 94 07/12/20 06:45 82 24 H 126/67 H 95 07/12/20 06:30 87 29 H 113/62 93 07/12/20 06:15 77 27 H 130/27 H 82 07/12/20 06:00 76 26 H 127/54 H 82 07/12/20 05:00 79 21 H 119/64 93 07/12/20 04:50 72 24 H 92 07/12/20 04:00 98.4 F 76 24 H 106/61 92 Medical Necessity - Tobacco Use Smoking Status: Never smoker Assessment/Plan All Active Problems (Last Reviewed 01/22/20 @ 15:[address] Philipp Ybarra MD) Weakness (Acute) Pneumonia due to COVID-19 virus (Acute) Shortness of breath (Acute) Rectal bleeding (Acute) Acute Hypoxic Respiratory Failure 2/2 COVID-19 PNA -acute desaturation am of 07/11 to 50's on RA on 6 L unable to get sat consistently > transferred to ICU and was placed on HFNC -now on BIPAP 16/10 with FiO2 100% and SpO2 92-96% -pt is high risk for needing invasive mechanical ventilation -Decadron 6 mg daily as pt is requiring supplemental O2 (day 02/21) -Remdesivir initiated 07/11 -convalescent plasma initiated on 07/11 -continue therapeutic Lovenox dosing 120 BID -BNP 92 and troponin was neg -ID and pulm following HFrEF-compensated/CAD/ICM/HTN/HPL -[facility] 2015 showed 30 to 40% LAD and mid RCA, 60 to 70% and ostial LCD 30% -ECHO with severe segmental WMA/EF 20% -hold ACEI -will continue lasix but slight bump in sCr may need to reduce to 40 mg daily IVP -was net neg 570 in last 24 hrs -monitor for s/o worsening failure Recent LGIB 2/2 Diverticular Bleed -10/2019 -c-scope done at that time--> removal of 1.5 cm polyp in descending colon -hgb remains stable -monitor closely with Full dose Lovenox DM-2 Uncontrolled -A1c was 12.2 in 07/2019 -on Lantus 20 mg BID at home -with steroids will need higher doses -continue 28 u BID for now -d/c log as pt now on BIPAP and will make NPO -continue Lipitor Mild Hyponatremia -Lasix dose doubled yesterday by CCM -may need to back off -repeat am BMP and if trends down will reduce lasix dosing Mild Anemia -resolved CKD Stage 3 -sCr at baseline range -will monitor -has trended up slightly and lasix is now 40 BID IVP -may need to decrease to daily -BMP in am -BUN up 2/2 steroids Depression -continue Zoloft MO -BMI 49.2 -recommend wgt loss DVT prophylaxis -therapeutic dose Lovenox Code Status -Full Dispo -continue ICU care Inpatient E&M: 87594 Subs Hosp L2
--- NOTE | 2020-07-12 08:45 | NURSING ---
Pt continues to desat despite bipap 16/10 100%FiO2. Dr. Frye notified, decision made to intubate patient. Pt moved to ICU room 2. Dr. Frye at bedside along with Aruna HOFFMAN. Versed and Etomidate IV given, see MAR. ET 7.5, 22@ LL, Vent 14-450-100%-15. OG placed, 20cc air bolus given and auscultated. Chest Xray ordered. Phenylephrine given, see JAN. Xray at bedside, ET and OG confirmed by Dr. Frye. OG LIWS. Pt restless, Fentanyl and Propofol initiated. Restraints applied to b/l wrists.
[2020-07-12 09:00] LABS: Bedside Glucose 167 mg/dL (70-110)
[2020-07-12] MEDS: Midazolam 2 MG/2 ML Syringe IV (09:00)
--- NOTE | 2020-07-12 09:18 | RAD_ITS ---
STUDY: X-RAY CHEST REASON FOR EXAM: Female, 69 years old. COVID POSITIVE, ET TUBE PLACEMENT, OG PLACEMENT TECHNIQUE: Single AP portable view of the chest. COMPARISON: 07/11/2020 FINDINGS: New endotracheal tube with its tip approximately 1.6 cm proximal to the erin. New orogastric tube with the tip extending below the level of diaphragm. Single chamber left-sided pacemaker in stable position. Bilateral infiltrates worsened the previous examination. There may be small left pleural effusion. The cardiac silhouette remains enlarged. Normal mediastinum and madan. Normal visualized pulmonary arteries. There is atherosclerotic calcification of the aortic arch with tortuosity. The osseous structures are unchanged. Normal visualized ribs, clavicles, and shoulders. There is no demonstrated abnormality of the visualized soft tissue structures of the upper abdomen. RAD/Chest 1 View (Portable) IMPRESSION: 1. Status post intubation and enteric tube placement. 2. Bilateral infiltrates worse than the previous exam. Electronically Signed: Hadley Boyd MD at 10:06 EDT Tel , Service support ,
[2020-07-12] MEDS: Propofol 10MG/Ml 1,000 MG/100 ML Bottle 7.3 MG CONT INF (09:30)
[2020-07-12] MEDS: Phenylephrine 10 MG/ML Vial IV (09:30)
--- NOTE | 2020-07-12 09:48 | NT.THERAPY_ITS ---
Nutrition Therapy Report - History Nutrition Services has been consulted to:: Manage enteral nutrition Current diet / nutrition support order:: NPO - Anthropometric Measurements Height:: 5 ft 2 in Weight:: 121.2 kg Body Mass Index (BMI):: 48.9 - Relevant Labs Relevant Labs:: WBC 13.3 K/mm3 (4.4-11.0) H 07/12/20 04:00 RBC 4.10 M/mm3 (4.2-5.4) L 07/09/20 04:25 Hgb 11.6 g/dL (12.0-15.0) L 07/10/20 03:45 Hct 35.2 % (37-47) L 07/09/20 04:25 MCH 26.6 pg (27.0-32.0) L 07/12/20 04:00 MCHC 31.7 g/dL (32-36) L 07/12/20 04:00 RDW Std Deviation 45.6 fl (35.1-43.9) H 07/12/20 04:00 RDW Coeff of Rahel 15.0 % (11.6-14.6) H 07/12/20 04:00 Plt Count 131 K/mm3 (150-450) L 07/12/20 04:00 MPV 12.6 fl (6.2-12.0) H 07/12/20 04:00 Immature Gran % (Auto) 1.100 % (0.0-0.9) H 07/10/20 03:45 Neut % (Auto) 87.1 % (47-70) H 07/11/20 07:30 Lymph % (Auto) 3.0 % (19-41) L 07/11/20 07:30 [place] % (Auto) 11.6 % (0-10) H 07/10/20 03:45 Absolute Neuts (auto) 12.7 X10^3/uL (2.0-7.7) H 07/11/20 07:30 Absolute Lymphs (auto) 0.44 X10^3/uL (0.83-4.51) L 07/11/20 07:30 D-Dimer Quant (PE/DVT) 1.16 FEU/ug/m (0.27-0.49) H* 07/08/20 22:45 Sodium 133 mmol/L (136-145) L 07/12/20 04:00 Anion Gap 4 (5-15) L 07/10/20 03:45 BUN 42 mg/dL (7-18) H 07/12/20 04:00 Creatinine 1.65 mg/dL (0.55-1.02) H 07/12/20 04:00 Est GFR (MDRD) Af Amer 39 mL/min (>60) L 07/12/20 04:00 Est GFR (MDRD) Non-Af 33 mL/min (>60) L 07/12/20 04:00 BUN/Creatinine Ratio 25.5 RATIO (10-20) H 07/12/20 04:00 Glucose 165 mg/dL (74-106) H 07/12/20 04:00 Calcium 7.9 mg/dL (8.5-10.1) L 07/12/20 04:00 Magnesium 1.4 mg/dL (1.6-2.6) L 07/09/20 04:25 Alkaline Phosphatase 130 U/L (45-117) H 07/12/20 04:00 Lactate Dehydrogenase 284 U/L (84-246) H 07/08/20 22:45 C-React Prot Ext Range 102.00 mg/L (0.0-3.0) H 07/08/20 22:45 B-Natriuretic Peptide 266.7 pg/mL (0-100) H 07/08/20 18:15 Total Protein 6.0 g/dL (6.4-8.2) L 07/10/20 03:45 Albumin 2.3 g/dL (3.2-5.0) L 07/12/20 04:00 Albumin/Globulin Ratio 0.6 RATIO (0.9-2.4) L 07/12/20 04:00 Procalcitonin 0.24 ng/mL (0.00-0.09) H 07/08/20 22:45 - Assessment Food / Nutrition-Related History:: Discussed in ICU rounds. Pt w/ increased O2 requirements resulting in intubation; NPO status. Plans for TF to begin tomorrow per Dr. Frye. Wt decrease 0.8 kg since previous review. - Nutrition Diagnosis Problem / Etiology / Signs & Symptoms (PES):: Inadequate oral intake related to respiratory distress resulting in intubation as evidenced by NPO status. Evidence of Malnutrition Exists:: No - Nutrition Intervention Nutrition Prescription:: Re-estimated pt nutrient needs using ASPEN Critical Care Guidelines for critically ill obese pt: 11-14 kcal/kg (actual wt) 3378-9316 calories, 2.5g/kg (IBW) 115-125 g protein. - Food / Nutrient Delivery Interventions Summary of nutrition intervention:: Plans for TF intitiation tomorrow as indicated. Nutrition support ordered as / adjusted to:: Rec Vital Af 1.2 at goal rate of 65 ml per hour w/ 90 ml H2O flush every 4 hours to provide 1872 calories, 117 gram protein, 1805 ml fluid per day. Would intitate TF at 20 ml per hour and increase by 15 ml every 8 hours as pt tolerates until goal rate achieved. TF to meet 100% of pt estimated nutrition needs. Nutrition education provided?: No - MNT Monitoring Further MNT monitoring and evaluation required?: Yes MNT Follow-up in:: 3-5 days - Please call RDN as needed at ext [phone].
[2020-07-12] MEDS: Etomidate 20 MG/10 ML Vial IV (10:00)
[2020-07-12 11:26] LABS: Allen Test Positive; Base Excess 1 mmol/L (-2 to +2); Blood Gas Specimen Type ART; FI02 100; Mode AC; O2 Delivery Device Adult Vent; PO2 75 mmHG (75-100); SITE R Brach; SO2 95 % (95-99); Total Carbon Dioxide 27 mmol/L; Vt 450; pH 7.39 (7.35-7.45)
[2020-07-12] MEDS: dexAMETHasone 4 MG Tablet 6 MG GT (11:36)
[2020-07-12] MEDS: guaiFENesin 10 ML UDC (200MG/10ML) GT ×2 (11:36→16:23)
[2020-07-12] MEDS: Famotidine 20 MG Tablet GT ×2 (11:36→22:07)
[2020-07-12] MEDS: Acetaminophen 650 MG/20 ML UDC GT (11:36)
[2020-07-12] MEDS: 0.9% Saline Lock 10 ML Syringe IV (11:38)
--- NOTE | 2020-07-12 11:53 | CASEMGMT ---
Addendum entered by Connie Ríos 07/12/20 13:08: Correction, patient sister name is Margarita. Original Note: Social Work Attempted phone conversation with patient sisterGeovanna (HCPOA). No answer. No Voicemail. Patient continues to be unable to have phone conversation due to medical status. Social Work to continue to follow. Naz REYES, VIRGIL
--- NOTE | 2020-07-12 12:03 | NURSING ---
Dr. Parrish contacted regarding accuracy of patients BP. Readings 83/50 then 64/49. Dr. Parrish states she will be up to place arterial line.
[2020-07-12 12:15] LABS: Bedside Glucose 129 mg/dL (70-110)
--- NOTE | 2020-07-12 13:15 | NURSING ---
Dr. Frye updated on patient BP and placement of art line. Orders received for PICC placement and Levophed.
--- NOTE | 2020-07-12 13:22 | PCM.HOSP.N ---
Hospitalist Note ARTERIAL LINE PLACEMENT Time out completed at 1220 Sinan test- Negative L L UE was prepped, cleaned with CHG solution and draped in a sterile fashion. L radial pulse was palpated and radial Arrow kit needle inserted with pulsatile flash of blood. Guidewire was advanced and angiocath was advance smoothly over the guidewire. The angiocath was sutured in placed and the pressure bag was connected. An excellent arterial waveform was noted and the monitor was zeroed. The insertion site was cleaned again with isopropyl alcohol swab and a sterile dressing was placed. The pt tolerated the procedure well. Procedures: [id number] Insertion Catheter Artery
[2020-07-12 14:26] LABS: CPK Total, Creatine Kinase 102 U/L (26-192); Triglycerides 73 mg/dL
[2020-07-12 16:50] LABS: Bedside Glucose 144 mg/dL (70-110)
[2020-07-12] MEDS: Chlorhexidine 15 ML PO (22:02)
[2020-07-12] MEDS: Atorvastatin Calcium 20 MG Tablet GT (22:07)
[2020-07-12] MEDS: Senna/Docusate Sodium 1 Tablet 2 TABLET GT (22:08)
[2020-07-13] VITALS (40 sets, daily range): BP systolic 94–137; BP diastolic 47–70; PULSE 52–85; RESP 14–32; TEMP 36.5–37; O2SAT 87–99
[2020-07-13] MEDS: Insulin Lispro 100 UNIT/ML INSULN.PEN SC ×4 (00:06→17:02)
[2020-07-13] MEDS: guaiFENesin 10 ML UDC (200MG/10ML) GT ×4 (00:07→16:56)
[2020-07-13 01:16] LABS: Bedside Glucose 188 mg/dL (70-110)
[2020-07-13] MEDS: Enoxaparin 120 MG/0.8 ML Syringe SC (05:39)
--- NOTE | 2020-07-13 06:10 | PCM.PN.INT ---
Subjective: The patient was seen and examined at the bedside this morning. Events from the last 24 hours have been reviewed. The patient decompensated yesterday from a respiratory perspective, despite the use of noninvasive positive pressure ventilatory support. She was subsequently intubated with radiographic findings concerning for ARDS. Following intubation, and after the initiation of sedating medications, the patient became hypotensive, which required vasopressor administration. The patient is currently maintaining appropriate oxygen saturations on assist control mode of mechanical ventilation with an FiO2 requirement of 80% and PEEP of 15. No significant secretions were noted overnight. The patient is only sedated on fentanyl and is hemodynamically stable on Levophed at 7.5. She is currently documented to be overall net +1 L for the hospital admission. Ventilator airway pressures are acceptable. Plateau pressures appear to be in the mid 20s. Objective: The patient's most recent lab work, culture data and imaging studies have all been personally reviewed. Surface echocardiogram from April 2019 revealed a mildly dilated LV with significant segmental systolic dysfunction and an ejection fraction of 20%. Coronavirus PCR was positive on July 08. Strep and urine Legionella antigens were negative. Respiratory viral panel was negative. Blood cultures have shown no growth to date. Sputum culture is pending. General: - - Intubated, minimally sedated and mechanically ventilated. No ventilator dyssynchrony noted. HEENT: Atraumatic, PERRLA, Normocephalic Oral: Moist Mucosa, - - Endotracheal and OG tubes in place Neck: Supple, No Nodes, Trachea Midline Lungs: - - Globally diminished air movement throughout all lung bear. Cardiovascular: Regular rate, Regular Rhythm, Normal S1, Normal S2 Abdomen: Bowel Sounds Present, Soft, Non Tender, Obese Extremities: No clubbing, No cyanosis, No edema Skin: No breakdown Musculoskeletal: No Tenderness to Palpation of Joints or Extremities Lymphatic: No Cervical, Supraclavicular, or Inguinal Adenopathy Neurological: - - No focal neurological deficits. The patient is currently alert and able to follow simple commands. Vital Signs Temp Pulse Resp BP Pulse Ox 97.9 F 66 17 123/52 H 96 07/13/20 05:00 07/13/20 05:20 07/13/20 05:20 07/13/20 05:00 07/13/20 05:20 Oxygen Flow Rate (L/min) 10 Oxygen Delivery Method Mechanical Ventilator Weight: 265 lb 10.512 oz Body Mass Index (BMI) 48.9 Finger Stick Blood Glucose 88 Intake and Output for Last 24 Hours 07/11/20 07/12/20 07/13/20 23:59 23:59 23:59 Intake Total 723.5 / 1203.5 1289.22 / 1329.07 194.35 / 194.35 Output Total 1150 / 1350 790 / 850 330 / 330 Balance -426.5 / -146.5 499.22 / 479.07 -135.65 / -135.65 Labs (Last 48 Hours) 07/11/20 07/11/20 07/11/20 07:30 07:30 07:30 WBC 14.6 H RBC 4.89 Hgb 13.1 Hct 41.1 MCV 84.0 MCH 26.8 L MCHC 31.9 L RDW Std Deviation 46.5 H RDW Coeff of Rahel 15.4 H Plt Count 152 MPV 11.6 Immature Gran % (Auto) 0.700 Neut % (Auto) 87.1 H Lymph % (Auto) 3.0 L [place] % (Auto) 9.1 Eos % (Auto) 0.0 Baso % (Auto) 0.1 Absolute Neuts (auto) 12.7 H Absolute Lymphs (auto) 0.44 L Nucleated RBC % 0 Specimen Type Sample Site pH Bicarbonate Actual Total CO2 Base Excess O2 Saturation O2 % ABG pCO2 ABG pO2 Sinan Test Respiration Rate O2 Delivery Device Vent Mode Tidal Volume Sodium 136 Potassium 4.0 Chloride 104 Carbon Dioxide 26.0 Anion Gap 6 BUN 37 H Creatinine 1.51 H Estim Creat Clear Calc 27.03 Est GFR (MDRD) Af Amer 44 L Est GFR (MDRD) Non-Af 36 L BUN/Creatinine Ratio 24.5 H Glucose 93 Calcium 8.3 L Total Bilirubin AST ALT Alkaline Phosphatase 162 H Total Creatine Kinase Troponin I B-Natriuretic Peptide Total Protein Albumin Globulin Albumin/Globulin Ratio Triglycerides MRSA (PCR) POC Glucose Blood Type A1 Antigen Typing Rho(D) Type Antibody Screen 07/11/20 07/11/20 07/11/20 07:30 08:58 11:50 WBC RBC Hgb Hct MCV MCH MCHC RDW Std Deviation RDW Coeff of Rahel Plt Count MPV Immature Gran % (Auto) Neut % (Auto) Lymph % (Auto) [place] % (Auto) Eos % (Auto) Baso % (Auto) Absolute Neuts (auto) Absolute Lymphs (auto) Nucleated RBC % Specimen Type Sample Site pH Bicarbonate Actual Total CO2 Base Excess O2 Saturation O2 % ABG pCO2 ABG pO2 Sinan Test Respiration Rate O2 Delivery Device Vent Mode Tidal Volume Sodium Potassium Chloride Carbon Dioxide Anion Gap BUN Creatinine Estim Creat Clear Calc Est GFR (MDRD) Af Amer Est GFR (MDRD) Non-Af BUN/Creatinine Ratio Glucose Calcium Total Bilirubin AST ALT Alkaline Phosphatase Total Creatine Kinase Troponin I B-Natriuretic Peptide 92.6 Total Protein Albumin Globulin Albumin/Globulin Ratio Triglycerides MRSA (PCR) POC Glucose 113 H Blood Type Cancelled A1 Antigen Typing Cancelled Rho(D) Type Cancelled Antibody Screen 07/11/20 07/11/20 07/11/20 11:50 11:50 13:12 WBC RBC Hgb Hct MCV MCH MCHC RDW Std Deviation RDW Coeff of Rahel Plt Count MPV Immature Gran % (Auto) Neut % (Auto) Lymph % (Auto) [place] % (Auto) Eos % (Auto) Baso % (Auto) Absolute Neuts (auto) Absolute Lymphs (auto) Nucleated RBC % Specimen Type Sample Site pH Bicarbonate Actual Total CO2 Base Excess O2 Saturation O2 % ABG pCO2 ABG pO2 Sinan Test Respiration Rate O2 Delivery Device Vent Mode Tidal Volume Sodium Potassium Chloride Carbon Dioxide Anion Gap BUN Creatinine Estim Creat Clear Calc Est GFR (MDRD) Af Amer Est GFR (MDRD) Non-Af BUN/Creatinine Ratio Glucose Calcium Total Bilirubin AST ALT Alkaline Phosphatase Total Creatine Kinase Troponin I < 0.015 B-Natriuretic Peptide Total Protein Albumin Globulin Albumin/Globulin Ratio Triglycerides MRSA (PCR) POC Glucose 96 Blood Type O POSITIVE A1 Antigen Typing Rho(D) Type Antibody Screen NEGATIVE 07/11/20 07/11/20 07/11/20 13:15 17:03 21:40 WBC RBC Hgb Hct MCV MCH MCHC RDW Std Deviation RDW Coeff of Rahel Plt Count MPV Immature Gran % (Auto) Neut % (Auto) Lymph % (Auto) [place] % (Auto) Eos % (Auto) Baso % (Auto) Absolute Neuts (auto) Absolute Lymphs (auto) Nucleated RBC % Specimen Type Sample Site pH Bicarbonate Actual Total CO2 Base Excess O2 Saturation O2 % ABG pCO2 ABG pO2 Sinan Test Respiration Rate O2 Delivery Device Vent Mode Tidal Volume Sodium Potassium Chloride Carbon Dioxide Anion Gap BUN Creatinine Estim Creat Clear Calc Est GFR (MDRD) Af Amer Est GFR (MDRD) Non-Af BUN/Creatinine Ratio Glucose Calcium Total Bilirubin AST ALT Alkaline Phosphatase Total Creatine Kinase Troponin I B-Natriuretic Peptide Total Protein Albumin Globulin Albumin/Globulin Ratio Triglycerides MRSA (PCR) Negative POC Glucose 116 H 222 H Blood Type A1 Antigen Typing Rho(D) Type Antibody Screen 07/12/20 07/12/20 07/12/20 00:41 04:00 04:00 WBC 13.3 H RBC 4.58 Hgb 12.2 Hct 38.5 MCV 84.1 MCH 26.6 L MCHC 31.7 L RDW Std Deviation 45.6 H RDW Coeff of Rahel 15.0 H Plt Count 131 L MPV 12.6 H Immature Gran % (Auto) Neut % (Auto) Lymph % (Auto) [place] % (Auto) Eos % (Auto) Baso % (Auto) Absolute Neuts (auto) Absolute Lymphs (auto) Nucleated RBC % Specimen Type Sample Site pH Bicarbonate Actual Total CO2 Base Excess O2 Saturation O2 % ABG pCO2 ABG pO2 Sinan Test Respiration Rate O2 Delivery Device Vent Mode Tidal Volume Sodium 133 L Potassium 4.0 Chloride 98 Carbon Dioxide 28.0 Anion Gap 7 BUN 42 H Creatinine 1.65 H Estim Creat Clear Calc 24.73 Est GFR (MDRD) Af Amer 39 L Est GFR (MDRD) Non-Af 33 L BUN/Creatinine Ratio 25.5 H Glucose 165 H Calcium 7.9 L Total Bilirubin 0.50 AST 29 ALT 22 Alkaline Phosphatase 130 H Total Creatine Kinase Troponin I B-Natriuretic Peptide Total Protein 6.4 Albumin 2.3 L Globulin 4.1 Albumin/Globulin Ratio 0.6 L Triglycerides MRSA (PCR) POC Glucose 211 H Blood Type A1 Antigen Typing Rho(D) Type Antibody Screen 07/12/20 07/12/20 07/12/20 04:00 05:38 06:22 WBC RBC Hgb Hct MCV MCH MCHC RDW Std Deviation RDW Coeff of Rahel Plt Count MPV Immature Gran % (Auto) Neut % (Auto) Lymph % (Auto) [place] % (Auto) Eos % (Auto) Baso % (Auto) Absolute Neuts (auto) Absolute Lymphs (auto) Nucleated RBC % Specimen Type ART Sample Site L Radial pH 7.41 Bicarbonate Actual 27.1 H Total CO2 28 Base Excess 2 O2 Saturation 82 L O2 % 94 ABG pCO2 43.1 ABG pO2 46 L Sinan Test Positive Respiration Rate O2 Delivery Device CPAP Vent Mode Tidal Volume Sodium Potassium Chloride Carbon Dioxide Anion Gap BUN Creatinine Estim Creat Clear Calc Est GFR (MDRD) Af Amer Est GFR (MDRD) Non-Af BUN/Creatinine Ratio Glucose Calcium Total Bilirubin AST ALT Alkaline Phosphatase Total Creatine Kinase 102 Troponin I B-Natriuretic Peptide Total Protein Albumin Globulin Albumin/Globulin Ratio Triglycerides 73 MRSA (PCR) POC Glucose 167 H Blood Type A1 Antigen Typing Rho(D) Type Antibody Screen 07/12/20 07/12/20 07/12/20 11:16 11:33 16:21 WBC RBC Hgb Hct MCV MCH MCHC RDW Std Deviation RDW Coeff of Rahel Plt Count MPV Immature Gran % (Auto) Neut % (Auto) Lymph % (Auto) [place] % (Auto) Eos % (Auto) Baso % (Auto) Absolute Neuts (auto) Absolute Lymphs (auto) Nucleated RBC % Specimen Type ART Sample Site R Brach pH 7.39 Bicarbonate Actual 26.0 Total CO2 27 Base Excess 1 O2 Saturation 95 O2 % 100 ABG pCO2 43.0 ABG pO2 75 Sinan Test Positive Respiration Rate 14.0000 O2 Delivery Device Adult Vent Vent Mode AC Tidal Volume 450 Sodium Potassium Chloride Carbon Dioxide Anion Gap BUN Creatinine Estim Creat Clear Calc Est GFR (MDRD) Af Amer Est GFR (MDRD) Non-Af BUN/Creatinine Ratio Glucose Calcium Total Bilirubin AST ALT Alkaline Phosphatase Total Creatine Kinase Troponin I B-Natriuretic Peptide Total Protein Albumin Globulin Albumin/Globulin Ratio Triglycerides MRSA (PCR) POC Glucose 129 H 144 H Blood Type A1 Antigen Typing Rho(D) Type Antibody Screen 07/13/20 00:05 WBC RBC Hgb Hct MCV MCH MCHC RDW Std Deviation RDW Coeff of Rahel Plt Count MPV Immature Gran % (Auto) Neut % (Auto) Lymph % (Auto) [place] % (Auto) Eos % (Auto) Baso % (Auto) Absolute Neuts (auto) Absolute Lymphs (auto) Nucleated RBC % Specimen Type Sample Site pH Bicarbonate Actual Total CO2 Base Excess O2 Saturation O2 % ABG pCO2 ABG pO2 Sinan Test Respiration Rate O2 Delivery Device Vent Mode Tidal Volume Sodium Potassium Chloride Carbon Dioxide Anion Gap BUN Creatinine Estim Creat Clear Calc Est GFR (MDRD) Af Amer Est GFR (MDRD) Non-Af BUN/Creatinine Ratio Glucose Calcium Total Bilirubin AST ALT Alkaline Phosphatase Total Creatine Kinase Troponin I B-Natriuretic Peptide Total Protein Albumin Globulin Albumin/Globulin Ratio Triglycerides MRSA (PCR) POC Glucose 188 H Blood Type A1 Antigen Typing Rho(D) Type Antibody Screen Microbiology 07/12/20 09:20 Sputum, Induced/Lukens Gram Stain - Final 07/10/20 13:45 Sputum, Expectorated/Coughed Gram Stain - Final 07/10/20 13:45 Sputum, Expectorated/Coughed Respiratory Culture - Final Culture exhibits no growth. 07/08/20 22:40 Blood Culture (Wb) - Left Forearm Blood Culture - Preliminary No growth in 48 hours. 07/08/20 22:30 Blood Culture (Wb) - Right Hand Blood Culture - Preliminary No growth in 48 hours. Clinical Impression(s) from Imaging Studies Chest X-Ray 07/08/20 19:38 IMPRESSION: Very low lung volumes. Probable mild congestion and interstitial edema. Multifocal atelectasis and/or infiltrates not excluded. Electronically Signed: Maurice Barnett MD at 20:00 EDT , Service support , Chest X-Ray 07/10/20 05:55 IMPRESSION: Worsening of aeration as outlined above compared to the most recent examination. Opacification left retrocardiac space may be due to increased rotation of the patient and positioning. Small left pleural effusion suspected. Electronically Signed: Sulma Harmon MD at 5:50 EDT , Service support , Chest X-Ray 07/11/20 05:25 IMPRESSION: Stable infiltrates in the right lung. Mild increased infiltrate in the left upper lobe. Electronically Signed: Alexis Morales at 12:13 EDT , Service support , Chest X-Ray 07/12/20 09:18 IMPRESSION: 1. Status post intubation and enteric tube placement. 2. Bilateral infiltrates worse than the previous exam. Electronically Signed: Hadley Boyd MD at 10:06 EDT Tel , Service support , Medical Necessity - Tobacco Use Smoking Status: Never smoker Assessment/Plan All Active Problems (Last Reviewed 01/22/20 @ 15:[address] Philipp Ybarra MD) Weakness (Acute) Pneumonia due to COVID-19 virus (Acute) Shortness of breath (Acute) Rectal bleeding (Acute) RECOMMENDATIONS: 1. Maintain PEEP at current setting and preferentially wean FiO2 to maintain saturations at or above 90%. 2. Continue Decadron, Remdesevir and treatment dose Lovenox. 3. Continue to hold diuretic therapy for now. 4. Okay to start tube feeds today from my perspective. 5. Continue Levophed and wean to maintain a mean arterial pressure at or above 65 mmHg. 6. Continue appropriate GI prophylaxis. IMPRESSIONS: 1. Acute hypoxemic respiratory failure secondary to ARDS due to COVID pneumonia The patient initially presented to the hospital with symptoms concerning for coronavirus infection and subsequently tested positive on July 08. Although initially she was on very minimal supplemental oxygen, the patient decompensated from a respiratory perspective over the course of the ensuing days. Chest x-ray revealed progressive bilateral infiltrates. Although attempts were made to utilize noninvasive positive pressure ventilatory support, the patient continued to decompensate from a clinical perspective and had to be intubated on the morning of July 12. She remains on Decadron, therapeutic Lovenox and Remdesevir. The patient also received convalescent plasma on July 11. 2. Distributive shock Most likely secondary to sedative medication use, as the patient became hemodynamically unstable after she was started on the aforementioned medications following intubation. However, given the progressive nature of the infiltrates noted on x-ray, she was placed on empiric antimicrobials as well, should she have an underlying superimposed bacterial infection. Cultures are currently pending. Levophed will be weaned to maintain a mean arterial pressure at or above 65 mmHg. Recommend conservative fluid use, given underlying depressed ejection fraction. 3. Acute on chronic kidney disease Likely prerenal in etiology and related to ischemic ATN in the setting #2. Continue current supportive measures. Continue vasopressor support to maintain hemodynamic stability. Continue to hold diuretics. No current indication for renal replacement therapy. 4. History of nonischemic cardiomyopathy/heart failure with reduced ejection fraction Diuretic regimen remains on hold due to hemodynamic instability and acute kidney injury. Recommend conservative use of fluids, given underlying depressed ejection fraction. 5. Morbid obesity/diabetes mellitus/chronic kidney disease/depression/high risk for sleep disordered breathing/CODE STATUS Complicates care, management, recovery and prognosis. Continue sliding scale insulin regimen. Okay to start tube feeds today from my perspective. The patient remains a full code, following recent conversation with the patient. TIME: 38 minutes of critical care time, independent of procedures, was spent addressing the patient's acute hypoxemic respiratory failure, ARDS secondary to COVID pneumonia, distributive shock, acute on chronic kidney disease, history of congestive heart failure, review of all data and collaboration with care team. [id number]) [id number] Critical care first hour
[2020-07-13 07:22] LABS: Absolute Lymphocyte Count 0.63 X10^3/uL (0.83-4.51); Absolute Neutrophil Count 15.4 X10^3/uL (2.0-7.7); Basophil# 0.03 X10^3/uL; Basophil% 0.2 % (0-1); Eosinophil# 0.05 X10^3/uL; Eosinophils% 0.3 % (0-5); Hematocrit 41.5 % (37-47); Hemoglobin 12.9 g/dL (12.0-15.0); Lymphocyte # 0.63 X10^3/ul (4.0); Lymphocyte % 3.7 % (19-41); Mean Corp Hgb Conc 31.1 g/dL (32-36); Mean Corpuscular Hgb 26.6 pg (27.0-32.0); Mean Corpuscular Volume 85.6 fL (81-99); Mean Platelet Vol. 12.8 fl (6.2-12.0); Monocyte# 0.81 X10^3/uL; Monocyte% 4.7 % (0-10); NRBC Flagged by Analyzer 0 % (0-5); Neutrophil # 15.39 X10^3/uL (2.7-7.7); Neutrophil % 89.5 % (47-70); Platelet Count 197 K/mm3 (150-450); RBC Distribution Width CV 15.5 % (11.6-14.6); RBC Distribution Width SD 48.1 fl (35.1-43.9); Red Blood Count 4.85 M/mm3 (4.2-5.4); White Blood Count 17.2 K/mm3 (4.4-11.0)
[2020-07-13 07:29] LABS: Anion Gap 9 (5-15); BUN 61 mg/dL (7-18); BUN/Creat Ratio 31.1 RATIO (10-20); Calcium,Total 7.6 mg/dL (8.5-10.1); Chloride 102 mmol/L (98-107); Creatinine, Serum 1.96 mg/dL (0.55-1.02); EST Glomerular Filtration Rate 27 mL/min (>60); Est Glom Filt Rate - Afr Amer 32 mL/min (>60); Estimated Creatinine Clearance 20.82 ml/min; Glucose 197 mg/dL (74-106); Potassium 4.3 mmol/L (3.5-5.1); Sodium Level 136 mmol/L (136-145)
[2020-07-13 08:11] LABS: Bedside Glucose 224 mg/dL (70-110)
--- NOTE | 2020-07-13 08:11 | PCM.PN.HOSP ---
Patient Problems: Active and Suspected Problems (Last Reviewed 01/22/20 @ 15:[address] Philipp Ybarra MD) Weakness (Acute) Shortness of breath (Acute) Subjective: Pt required intubation and mech ventilation as of yesterday am. Art line placed for hypotension. Pt is awake on the vent today. Has no complaints and is calm. TF to start today. Vitals/I&O's: Vital Signs Temp Pulse Resp BP Pulse Ox 98.0 F 66 14 117/48 L 93 07/13/20 07:00 07/13/20 07:41 07/13/20 07:00 07/13/20 07:00 07/13/20 07:00 Oxygen Flow Rate (L/min) 10 Oxygen Delivery Method Mechanical Ventilator Weight: 120.5 kg Body Mass Index (BMI) 48.9 Finger Stick Blood Glucose 88 Intake and Output for Last 24 Hours 07/11/20 07/12/20 07/13/20 23:59 23:59 23:59 Intake Total 723.5 / 1203.5 1289.22 / 1329.07 241.92 / 241.92 Output Total 1150 / 1350 790 / 850 330 / 330 Balance -426.5 / -146.5 499.22 / 479.07 -88.08 / -88.08 General: Alert, Cooperative, No apparent distress, Well developed, Well nourished HEENT: Atraumatic, PERRLA, EOMI, Normocephalic, EAC Clear Oral: - - ETT in place Neck: Supple, Trachea Midline, Thyroid Normal Size and Texture Lungs: No rhonchi, No wheeze, Rales - few scattered but much improved Cardiovascular: Regular rate, Normal S1, Normal S2, No murmurs, No Ectopic Activity, No rub noted, No Gallop Abdomen: Bowel Sounds Present, Soft, Non Tender, Non-Distended, Obese Extremities: No clubbing, No cyanosis, No edema, Capillary Refill Less than 3 Seconds, Peripheral Pulses Normal Skin: No rashes, No breakdown, - - L radial Art line, L cephalic PICC Musculoskeletal: No Tenderness to Palpation of Joints or Extremities, No Muscle Wasting, Arthritic Changes Lymphatic: No Cervical, Supraclavicular, or Inguinal Adenopathy Neurological: Cranial nerves II-XII grossly intact, Deep Tendon Reflexes 2+/4 and Symmetrical, Neuro grossly intact, Muscle tone normal, Coordination normal Psych/Mental Status: Normal Affect, Appropriate, - - interacts appropriately on the vent Microbiology Past 72 Hours 07/12/20 09:20 Sputum, Induced/Lukens Gram Stain - Final 07/10/20 13:45 Sputum, Expectorated/Coughed Gram Stain - Final 07/10/20 13:45 Sputum, Expectorated/Coughed Respiratory Culture - Final Culture exhibits no growth. 07/08/20 22:40 Blood Culture (Wb) - Left Forearm Blood Culture - Preliminary No growth in 48 hours. 07/08/20 22:30 Blood Culture (Wb) - Right Hand Blood Culture - Preliminary No growth in 48 hours. Laboratory Results 07/12/20 04:00: Total Creatine Kinase 102, Triglycerides 73 07/12/20 05:38: POC Glucose 167 H 07/12/20 11:16: Specimen Type ART, Sample Site R Brach, pH 7.39, Bicarbonate Actual 26.0, Total CO2 27, Base Excess 1, O2 Saturation 95, O2 % 100, ABG pCO2 43.0, ABG pO2 75, Sinan Test Positive, Respiration Rate 14.0000, O2 Delivery Device Adult Vent, Vent Mode AC, Tidal Volume 450 07/12/20 11:33: POC Glucose 129 H 07/12/20 16:21: POC Glucose 144 H 07/13/20 00:05: POC Glucose 188 H 07/13/20 03:40: WBC 17.2 H, RBC 4.85, Hgb 12.9, Hct 41.5, MCV 85.6, MCH 26.6 L, MCHC 31.1 L, RDW Std Deviation 48.1 H, RDW Coeff of Rahel 15.5 H, Plt Count 197, MPV 12.8 H, Immature Gran % (Auto) 1.600 H, Neut % (Auto) 89.5 H, Lymph % (Auto) 3.7 L, [place] % (Auto) 4.7, Eos % (Auto) 0.3, Baso % (Auto) 0.2, Absolute Neuts (auto) 15.4 H, Absolute Lymphs (auto) 0.63 L, Nucleated RBC % 0 07/13/20 03:40: Sodium 136, Potassium 4.3, Chloride 102, Carbon Dioxide 25.0, Anion Gap 9, BUN 61 H, Creatinine 1.96 H, Estim Creat Clear Calc 20.82, Est GFR (MDRD) Af Amer 32 L, Est GFR (MDRD) Non-Af 27 L, BUN/Creatinine Ratio 31.1 H, Glucose 197 H, Calcium 7.6 L 07/13/20 05:35: POC Glucose 224 H Current Medications Acetaminophen (Tylenol Liquid) 650 mg GT Q6H PRN PRN PRN Reason: Pain Score 1-10/Temp > 100.7 F Last Admin: 07/12/20 11:36 Dose: 650 mg Documented by: Albuterol Sulfate (Proair Hfa (Sp) Surgery/Vent Pts) 1 puff INHALATION Q2H PRN PRN PRN Reason: SHORTNESS OF BREATH/WHEEZING Atorvastatin Calcium (Lipitor) 20 mg GT QHS [facility] Last Admin: 07/12/20 22:07 Dose: 20 mg Documented by: Chlorhexidine Gluconate () 15 ml PO BID [facility] Last Admin: 07/12/20 22:02 Dose: 15 ml Documented by: Dexamethasone (Decadron) 6 mg GT DAILY@0800 [facility] Last Admin: 07/12/20 11:36 Dose: 6 mg Documented by: Dextrose (D50w Syringe) 0 gm IV X1 PRN; Protocol PRN Reason: Hypoglycemia Enoxaparin Sodium (Lovenox) 120 mg SC Q12@0600,1800 [facility] Last Admin: 07/13/20 05:39 Dose: 120 mg Documented by: Famotidine (Pepcid) 20 mg GT BID [facility] Last Admin: 07/12/20 22:07 Dose: 20 mg Documented by: Glucagon () 1 mg IM .X1 PRN PRN Reason: Hypoglycemia Guaifenesin (Robitussin) 10 ml GT Q6 [facility] Last Admin: 07/13/20 05:39 Dose: 10 ml Documented by: Sodium Chloride () 250 mls @ 15 mls/hr IV .[id number] PRN PRN Reason: Additional IVPB Infusion Last Infusion: 07/13/20 02:20 Dose: 15 mls/hr Documented by: Remdesivir (Investigational) (100 mg/ Sodium Chloride) 250 mls @ 125 mls/hr IV DAILY [facility]; Protocol Stop: 07/15/20 11:59 Last Infusion: 07/12/20 13:33 Dose: Infused Documented by: Piperacillin Sod/Tazobactam (Sod 3.375 gm/ Sodium Chloride) 50 mls @ 12.5 mls/hr IV Q8 [facility] Last Admin: 07/13/20 05:18 Dose: 12.5 mls/hr Documented by: Propofol (Diprivan) 1,000 mg in 100 mls @ 7.272 mls/hr CONT INF .Q12H [facility]; Protocol Last Admin: 07/13/20 00:06 Dose: Not Given Documented by: Fentanyl Citrate 1,000 mcg/ (Sodium Chloride) 100 mls @ 5 mls/hr CONT INF .Q20H [facility]; Protocol Last Titration: 07/13/20 07:35 Dose: 75 mcg/hr, 7.5 mls/hr Documented by: Norepinephrine Bitartrate 8 mg (/ Sodium Chloride) 250 mls @ 9.375 mls/hr CONT INF .[id number] [facility]; Protocol Last Titration: 07/13/20 07:00 Dose: 7.5 mcg/min, 14.1 mls/hr Documented by: Enteral Nutritional Formula (Vital Af 1.2 Wong Liquid) 1,000 mls @ 65 mls/hr GT .[id number] [facility] Insulin Glargine (Lantus (Bkc)) 28 units SC BID [facility] Last Admin: 07/12/20 22:08 Dose: Not Given Documented by: Insulin Human Lispro (Humalog Kwikpen (Bkc)) 0 unit SC Q6 [facility]; Protocol Last Admin: 07/13/20 05:40 Dose: 4 u Documented by: Nystatin (Mycostatin Powder) 1 applic TOPICAL 4X/DAY PRN PRN; Protocol PRN Reason: SKIN Last Admin: 07/12/20 01:17 Dose: 1 applicatio Documented by: Ondansetron HCl (Zofran) 4 mg IV Q6H PRN PRN PRN Reason: NAUSEA/VOMITING Last Admin: 07/11/20 11:13 Dose: 4 mg Documented by: Senna/Docusate Sodium (Senokot-S, Brittney-Colace) 2 tablet GT BID [facility] Last Admin: 07/12/20 22:08 Dose: 2 tablet Documented by: Sertraline HCl (Zoloft) 100 mg GT DAILY [facility] Sodium Chloride () 10 - 40 ml IV UD PRN PRN Reason: SALINE FLUSH Last Admin: 07/12/20 11:38 Dose: 40 ml Documented by: Sodium Chloride ([place] Nasal [place]) 2 spray NASAL Q2H PRN PRN Reason: NASAL DRYNESS Last Admin: 07/09/20 21:40 Dose: 2 spray Documented by: STROKE Vital Signs/Narrative: Vital Signs Temp Pulse Resp BP Pulse Ox 07/13/20 07:41 66 07/13/20 07:00 98.0 F 62 14 117/48 L 93 07/13/20 06:00 98.0 F 72 18 111/58 L 95 07/13/20 05:20 66 17 96 07/13/20 05:00 97.9 F 74 14 123/52 H 94 Medical Necessity - Tobacco Use Smoking Status: Never smoker Assessment/Plan All Active Problems (Last Reviewed 01/22/20 @ 15:[address] Philipp Ybarra MD) Weakness (Acute) Pneumonia due to COVID-19 virus (Acute) Shortness of breath (Acute) Rectal bleeding (Acute) Acute Hypoxic Respiratory Failure 2/2 COVID-19 PNA -acute desaturation am of 07/11 to 50's on RA on 6 L unable to get sat consistently > transferred to ICU and was placed on HFNC -pt was intubated late yesterday am on vent with PEEP of 15 and FiO2 is down to 80% today (was 100% yesterday) -Decadron 6 mg daily as pt is requiring supplemental O2 (day 03/23) -Remdesivir initiated 07/11 -convalescent plasma initiated on 07/11 -d/c lovenox and start heparin ggt--> will not give bolus and will start this evening as pt did get Lovenox early this am -BNP 92 and troponin was neg -ID and pulm following Distributive Shock 2/2 sedation meds -down to 7.5 mcg of Levo -pressures are improving -pt is very sensitive to sedation medication with regards to her BP -wean levo as able -art line and R UE PICC in place HFrEF-compensated/CAD/ICM/HTN/HPL -[facility] 2015 showed 30 to 40% LAD and mid RCA, 60 to 70% and ostial LCD 30% -ECHO with severe segmental WMA/EF 20% -hold ACEI -Hold Lasix--> use prn for now -monitor for s/o worsening failure Recent LGIB 2/2 Diverticular Bleed -10/2019 -c-scope done at that time--> removal of 1.5 cm polyp in descending colon -hgb remains stable (12.9) -monitor closely with Full dose Lovenox DM-2 Uncontrolled -A1c was 12.2 in 07/2019 -on Lantus 20 mg BID at home -was given 18 u yesterday with NPO status from intubation -with steroids has needed higher doses -restart 28 u BID today with initiation of TF this am -continue to trend -may need q 6 log depending on what BGT's look like today -continue SSI Mild Hyponatremia -Resolved ALICIA on CKD Stage 3 -sCr at baseline is about 1.4-1.6, now 1.96 -suspect increase is 2/2 hypotension and ATN from yesterday -Lasix on hold -avoid nephrotoxins -BMP in am -switch to heparin ggt from Lovenox with sCr of 1.96 -UO still good -arellano in place -BMP in am -no need for nephro consult at this time but will monitor closely Depression -continue Zoloft MO -BMI 49.2 -recommend wgt loss DVT prophylaxis -therapeutic dose Lovenox Code Status -Full Dispo -continue ICU care Inpatient E&M: 40346 Subs Hosp L3
[2020-07-13] MEDS: Vital AF 1.2 Cal Liquid 1,000 ML 65 ML GT (08:47)
[2020-07-13] MEDS: Sertraline 100 MG Tablet GT (08:48)
[2020-07-13] MEDS: Senna/Docusate Sodium 1 Tablet 2 TABLET GT ×2 (08:48→21:29)
[2020-07-13] MEDS: dexAMETHasone 4 MG Tablet 6 MG GT (08:48)
[2020-07-13] MEDS: Famotidine 20 MG Tablet GT ×2 (08:48→21:30)
[2020-07-13] MEDS: Chlorhexidine 15 ML PO ×2 (08:48→20:14)
[2020-07-13 12:10] LABS: Bedside Glucose 247 mg/dL (70-110)
[2020-07-13 12:18] LABS: International Normalized Ratio 1.6; Prothrombin Time (Protime)PT. 18.3 SECONDS (11.7-14.9)
[2020-07-13 12:20] LABS: Partial Thromboplast Time 53.9 Seconds (24.1-36.2)
[2020-07-13 17:20] LABS: Bedside Glucose 263 mg/dL (70-110)
[2020-07-13] MEDS: Propofol 10MG/Ml 1,000 MG/100 ML Bottle 7.3 MG CONT INF (20:00)
[2020-07-13] MEDS: Atorvastatin Calcium 20 MG Tablet GT (21:29)
[2020-07-13 23:19] LABS: Partial Thromboplast Time 145.1 Seconds (24.1-36.2)
[2020-07-14] VITALS (63 sets, daily range): BP systolic 57–132; BP diastolic 39–81; PULSE 46–105; RESP 12–27; TEMP 36.2–37.2; O2SAT 64–100
[2020-07-14] MEDS: Propofol 10MG/Ml 1,000 MG/100 ML Bottle 14.5 MG CONT INF (00:29)
[2020-07-14] MEDS: Insulin Lispro 100 UNIT/ML INSULN.PEN SC ×4 (00:39→18:13)
[2020-07-14] MEDS: guaiFENesin 10 ML UDC (200MG/10ML) GT ×4 (00:39→18:13)
[2020-07-14 00:50] LABS: Bedside Glucose 299 mg/dL (70-110)
[2020-07-14 04:37] LABS: Absolute Neutrophil Count 18.2 X10^3/uL (2.0-7.7); Basophil# 0.08 X10^3/uL; Basophil% 0.4 % (0-1); Hematocrit 39.8 % (37-47); Hemoglobin 12.6 g/dL (12.0-15.0); Lymphocyte % 4.6 % (19-41); Mean Corp Hgb Conc 31.7 g/dL (32-36); Mean Corpuscular Hgb 26.7 pg (27.0-32.0); Mean Corpuscular Volume 84.3 fL (81-99); Mean Platelet Vol. 12.8 fl (6.2-12.0); Monocyte% 7.4 % (0-10); NRBC Flagged by Analyzer 0 % (0-5); Neutrophil # 18.24 X10^3/uL (2.7-7.7); Neutrophil % 84.5 % (47-70); POSITIVE DIFFERENTIAL YES; Platelet Count 366 K/mm3 (150-450); RBC Distribution Width CV 15.9 % (11.6-14.6); RBC Distribution Width SD 48.5 fl (35.1-43.9); Red Blood Count 4.72 M/mm3 (4.2-5.4); White Blood Count 21.6 K/mm3 (4.4-11.0)
[2020-07-14 04:38] LABS: Differential Indicated SCAN CRITERIA MET
[2020-07-14 04:53] LABS: Anion Gap 11 (5-15); BUN 81 mg/dL (7-18); BUN/Creat Ratio 39.3 RATIO (10-20); Calcium,Total 7.4 mg/dL (8.5-10.1); Chloride 102 mmol/L (98-107); Creatinine, Serum 2.06 mg/dL (0.55-1.02); EST Glomerular Filtration Rate 25 mL/min (>60); Est Glom Filt Rate - Afr Amer 31 mL/min (>60); Estimated Creatinine Clearance 19.81 ml/min; Glucose 356 mg/dL (74-106); Potassium 4.6 mmol/L (3.5-5.1); Sodium Level 135 mmol/L (136-145)
[2020-07-14 04:57] LABS: Differential Comment SCANNED
[2020-07-14] MEDS: Nystatin Powder 15gm Bottle 1 APPLIC TOPICAL (05:14)
[2020-07-14 06:26] LABS: Bedside Glucose 350 mg/dL (70-110)
[2020-07-14] MEDS: TITRATION PARAMETER CHANGE 1 EACH IV (06:33)
--- NOTE | 2020-07-14 06:43 | EKG12_ITS ---
Test Reason : LOW HR Blood Pressure : / mmHG Vent. Rate : 051 BPM Atrial Rate : 051 BPM P-R Int : 144 ms QRS Dur : 082 ms QT Int : 518 ms P-R-T Axes : 006 -28 000 degrees QTc Int : 477 ms Sinus bradycardia Leftward axis Poor R wave progression Nonspecific T-Wave Abnormality Inferior infarct , age undetermined, cannot be excluded Abnormal ECG Confirmed by OLIVIA VELEZ, LINDSAY ([id number]), index editor MILDRED AC ([id number]) on 07/17/2020 11:39:15 AM Referred By: QUE Confirmed By:LINDSAY BAKER MD
--- NOTE | 2020-07-14 07:14 | PCM.PN.INT ---
Subjective: Patient did okay overnight. Patient did give placed on Levophed drip associated with the initiation of propofol. Tube feeds have been at goal. Patient did not have spontaneous breathing trial this morning secondary to high PEEP and oxygenation requirements. Blood sugars have been elevated overnight. General: - - Intubated and sedated. RASS -2. Morbidly obese. HEENT: Atraumatic, PERRLA, EOMI, Normocephalic, - - Slight scleral injection without icterus Oral: Moist Mucosa, No Gingival or Mucosal Lesions/ Ulcerations Neck: Supple, No JVD, No Nodes, Trachea Midline Lungs: No rhonchi, No wheeze, No rales, Diminished, - - Peak airway pressures in the mid 30s. No significant air trapping noted on vent tracings Cardiovascular: Normal S1, Normal S2, No murmurs, Bradycardic, No rub noted, No Gallop Abdomen: Bowel Sounds Present, Soft, Non Tender, Non-Distended, Obese Extremities: No clubbing, No cyanosis, Edema - 1+ anasarca Skin: No rashes, No breakdown Musculoskeletal: No Tenderness to Palpation of Joints or Extremities Lymphatic: No Cervical, Supraclavicular, or Inguinal Adenopathy Neurological: Cranial nerves II-XII grossly intact, Neuro grossly intact Psych/Mental Status: Flat Affect Vital Signs Temp Pulse Resp BP Pulse Ox 36.3 C L 48 L 14 125/47 H 95 07/14/20 07:00 07/14/20 07:00 07/14/20 07:00 07/14/20 07:00 07/14/20 07:00 Oxygen Flow Rate (L/min) 10 Oxygen Delivery Method Mechanical Ventilator Weight: 122.4 kg Body Mass Index (BMI) 48.9 Finger Stick Blood Glucose 88 Intake and Output for Last 24 Hours 07/12/20 07/13/20 07/14/20 23:59 23:59 23:59 Intake Total 1289.22 / 1329.07 1860.77 / 2021.87 898.36 / 898.36 Output Total 790 / 850 1130 / 1430 550 / 550 Balance 499.22 / 479.07 730.77 / 591.87 348.36 / 348.36 Labs (Last 48 Hours) 07/12/20 07/12/20 07/12/20 04:00 05:38 11:16 WBC RBC Hgb Hct MCV MCH MCHC RDW Std Deviation RDW Coeff of Rahel Plt Count MPV Immature Gran % (Auto) Neut % (Auto) Lymph % (Auto) [place] % (Auto) Eos % (Auto) Baso % (Auto) Absolute Neuts (auto) Absolute Lymphs (auto) Nucleated RBC % Differential Comment Diff Path Review PT INR APTT Specimen Type ART Sample Site R Brach pH 7.39 Bicarbonate Actual 26.0 Total CO2 27 Base Excess 1 O2 Saturation 95 O2 % 100 ABG pCO2 43.0 ABG pO2 75 Sinan Test Positive Respiration Rate 14.0000 O2 Delivery Device Adult Vent Vent Mode AC Tidal Volume 450 Sodium Potassium Chloride Carbon Dioxide Anion Gap BUN Creatinine Estim Creat Clear Calc Est GFR (MDRD) Af Amer Est GFR (MDRD) Non-Af BUN/Creatinine Ratio Glucose Calcium Total Creatine Kinase 102 Triglycerides 73 POC Glucose 167 H 07/12/20 07/12/20 07/13/20 11:33 16:21 00:05 WBC RBC Hgb Hct MCV MCH MCHC RDW Std Deviation RDW Coeff of Rahel Plt Count MPV Immature Gran % (Auto) Neut % (Auto) Lymph % (Auto) [place] % (Auto) Eos % (Auto) Baso % (Auto) Absolute Neuts (auto) Absolute Lymphs (auto) Nucleated RBC % Differential Comment Diff Path Review PT INR APTT Specimen Type Sample Site pH Bicarbonate Actual Total CO2 Base Excess O2 Saturation O2 % ABG pCO2 ABG pO2 Sinan Test Respiration Rate O2 Delivery Device Vent Mode Tidal Volume Sodium Potassium Chloride Carbon Dioxide Anion Gap BUN Creatinine Estim Creat Clear Calc Est GFR (MDRD) Af Amer Est GFR (MDRD) Non-Af BUN/Creatinine Ratio Glucose Calcium Total Creatine Kinase Triglycerides POC Glucose 129 H 144 H 188 H 07/13/20 07/13/20 07/13/20 03:40 03:40 05:35 WBC 17.2 H RBC 4.85 Hgb 12.9 Hct 41.5 MCV 85.6 MCH 26.6 L MCHC 31.1 L RDW Std Deviation 48.1 H RDW Coeff of Rahel 15.5 H Plt Count 197 MPV 12.8 H Immature Gran % (Auto) 1.600 H Neut % (Auto) 89.5 H Lymph % (Auto) 3.7 L [place] % (Auto) 4.7 Eos % (Auto) 0.3 Baso % (Auto) 0.2 Absolute Neuts (auto) 15.4 H Absolute Lymphs (auto) 0.63 L Nucleated RBC % 0 Differential Comment Diff Path Review PT INR APTT Specimen Type Sample Site pH Bicarbonate Actual Total CO2 Base Excess O2 Saturation O2 % ABG pCO2 ABG pO2 Sinan Test Respiration Rate O2 Delivery Device Vent Mode Tidal Volume Sodium 136 Potassium 4.3 Chloride 102 Carbon Dioxide 25.0 Anion Gap 9 BUN 61 H Creatinine 1.96 H Estim Creat Clear Calc 20.82 Est GFR (MDRD) Af Amer 32 L Est GFR (MDRD) Non-Af 27 L BUN/Creatinine Ratio 31.1 H Glucose 197 H Calcium 7.6 L Total Creatine Kinase Triglycerides POC Glucose 224 H 07/13/20 07/13/20 07/13/20 12:00 12:01 16:49 WBC RBC Hgb Hct MCV MCH MCHC RDW Std Deviation RDW Coeff of Rahel Plt Count MPV Immature Gran % (Auto) Neut % (Auto) Lymph % (Auto) [place] % (Auto) Eos % (Auto) Baso % (Auto) Absolute Neuts (auto) Absolute Lymphs (auto) Nucleated RBC % Differential Comment Diff Path Review PT 18.3 H INR 1.6 APTT 53.9 H Specimen Type Sample Site pH Bicarbonate Actual Total CO2 Base Excess O2 Saturation O2 % ABG pCO2 ABG pO2 Sinan Test Respiration Rate O2 Delivery Device Vent Mode Tidal Volume Sodium Potassium Chloride Carbon Dioxide Anion Gap BUN Creatinine Estim Creat Clear Calc Est GFR (MDRD) Af Amer Est GFR (MDRD) Non-Af BUN/Creatinine Ratio Glucose Calcium Total Creatine Kinase Triglycerides POC Glucose 247 H 263 H 07/13/20 07/14/20 07/14/20 22:47 00:25 04:25 WBC 21.6 H RBC 4.72 Hgb 12.6 Hct 39.8 MCV 84.3 MCH 26.7 L MCHC 31.7 L RDW Std Deviation 48.5 H RDW Coeff of Rahel 15.9 H Plt Count 366 MPV 12.8 H Immature Gran % (Auto) 3.100 H Neut % (Auto) 84.5 H Lymph % (Auto) 4.6 L [place] % (Auto) 7.4 Eos % (Auto) 0.0 Baso % (Auto) 0.4 Absolute Neuts (auto) 18.2 H Absolute Lymphs (auto) 1.00 Nucleated RBC % 0 Differential Comment SCANNED Diff Path Review May foll PT INR APTT 145.1 H* Specimen Type Sample Site pH Bicarbonate Actual Total CO2 Base Excess O2 Saturation O2 % ABG pCO2 ABG pO2 Sinan Test Respiration Rate O2 Delivery Device Vent Mode Tidal Volume Sodium Potassium Chloride Carbon Dioxide Anion Gap BUN Creatinine Estim Creat Clear Calc Est GFR (MDRD) Af Amer Est GFR (MDRD) Non-Af BUN/Creatinine Ratio Glucose Calcium Total Creatine Kinase Triglycerides POC Glucose 299 H 07/14/20 07/14/20 04:25 05:37 WBC RBC Hgb Hct MCV MCH MCHC RDW Std Deviation RDW Coeff of Rahel Plt Count MPV Immature Gran % (Auto) Neut % (Auto) Lymph % (Auto) [place] % (Auto) Eos % (Auto) Baso % (Auto) Absolute Neuts (auto) Absolute Lymphs (auto) Nucleated RBC % Differential Comment Diff Path Review PT INR APTT Specimen Type Sample Site pH Bicarbonate Actual Total CO2 Base Excess O2 Saturation O2 % ABG pCO2 ABG pO2 Sinan Test Respiration Rate O2 Delivery Device Vent Mode Tidal Volume Sodium 135 L Potassium 4.6 Chloride 102 Carbon Dioxide 22.0 Anion Gap 11 BUN 81 H Creatinine 2.06 H Estim Creat Clear Calc 19.81 Est GFR (MDRD) Af Amer 31 L Est GFR (MDRD) Non-Af 25 L BUN/Creatinine Ratio 39.3 H Glucose 356 H Calcium 7.4 L Total Creatine Kinase Triglycerides POC Glucose 350 H Microbiology 07/12/20 09:20 Sputum, Induced/Lukens Gram Stain - Final 07/12/20 09:20 Sputum, Induced/Lukens Respiratory Culture - Preliminary Appears to be normal respiratory william. Further studies to follow. 07/10/20 13:45 Sputum, Expectorated/Coughed Gram Stain - Final 07/10/20 13:45 Sputum, Expectorated/Coughed Respiratory Culture - Final Culture exhibits no growth. Medical Necessity - Tobacco Use Smoking Status: Never smoker Assessment/Plan All Active Problems (Last Reviewed 01/22/20 @ 15:[address] Philipp Ybarra MD) Weakness (Acute) Pneumonia due to COVID-19 virus (Acute) Shortness of breath (Acute) Rectal bleeding (Acute) RECOMMENDATIONS: 1. Wean PEEP and FiO2 per orders to maintain saturations at or above 90%. 2. Continue Decadron, Remdesevir and treatment dose Lovenox. 3. Continue to hold diuretic therapy for now. 4. Increase Lantus and sliding scale 5. Continue Levophed and wean to maintain a mean arterial pressure at or above 65 mmHg. 6. Continue appropriate GI prophylaxis. IMPRESSIONS: 1. Acute hypoxemic respiratory failure secondary to ARDS due to COVID pneumonia The patient initially presented to the hospital with symptoms concerning for coronavirus infection and subsequently tested positive on July 08. Although initially she was on very minimal supplemental oxygen, the patient decompensated from a respiratory perspective over the course of the ensuing days. Chest x-ray revealed progressive bilateral infiltrates. Although attempts were made to utilize noninvasive positive pressure ventilatory support, the patient continued to decompensate from a clinical perspective and had to be intubated on the morning of July 12. She remains on Decadron, therapeutic Lovenox and Remdesevir. The patient also received convalescent plasma on July 11. Patient with elevated blood sugars, likely secondary to Decadron, so coverage will be increased 2. Distributive shock Most likely secondary to sedative medication use, as the patient became hemodynamically unstable after she was started on the aforementioned medications following intubation. However, given the progressive nature of the infiltrates noted on x-ray, she was placed on empiric antimicrobials as well, should she have an underlying superimposed bacterial infection. Cultures are not growing anything. Levophed will be weaned to maintain a mean arterial pressure at or above 65 mmHg. Recommend conservative fluid use, given underlying depressed ejection fraction. 3. Acute on chronic kidney disease Likely prerenal in etiology and related to ischemic ATN in the setting #2. Continue current supportive measures. Continue vasopressor support to maintain hemodynamic stability. Continue to hold diuretics with increasing creatinine. No current indication for renal replacement therapy. 4. History of nonischemic cardiomyopathy/heart failure with reduced ejection fraction Diuretic regimen remains on hold due to hemodynamic instability and acute kidney injury. Recommend conservative use of fluids, given underlying depressed ejection fraction. 5. Morbid obesity/diabetes mellitus/chronic kidney disease/depression/high risk for sleep disordered breathing/CODE STATUS Complicates care, management, recovery and prognosis. Continue sliding scale insulin regimen. Okay to start tube feeds today from my perspective. The patient remains a full code, following recent conversation with the patient. TIME: 40 minutes of critical care time, independent of procedures, was spent addressing the patient's acute hypoxemic respiratory failure, ARDS secondary to COVID pneumonia, distributive shock, acute on chronic kidney disease, history of congestive heart failure, review of all data and collaboration with care team. (5:20 AM to 6:20 AM) [id number]: [id number] Critical care first hour
[2020-07-14] MEDS: Sertraline 100 MG Tablet GT (08:34)
[2020-07-14] MEDS: dexAMETHasone 4 MG Tablet 6 MG GT (08:35)
[2020-07-14] MEDS: Senna/Docusate Sodium 1 Tablet 2 TABLET GT ×2 (08:35→21:26)
[2020-07-14] MEDS: Famotidine 20 MG Tablet GT ×2 (08:35→21:26)
[2020-07-14 09:43] LABS: Pathologist Review Reviewed
--- NOTE | 2020-07-14 09:47 | PN_ITS ---
Subjective: Chief complaint: Follow-up after admission for acute bilateral viral COVID-19 pneumonia complicated by acute hypoxic respiratory failure secondary to ARDS, found to have disruptive shock attributed to sedatives. Patient seen and examined. No acute events overnight. She was started on IV Levophed drip because of hypotension after initiation of propofol. At this time, patient is alert, spontaneous eye opening, trying to follow commands, on mechanical ventilation. She has been afebrile, bradycardic, blood pressure stable, on mechanical ventilation. - Physical Exam Vitals/I&O's: Vital Signs Temp Pulse Resp BP Pulse Ox 97.4 F L 48 L 14 125/47 H 95 07/14/20 07:00 07/14/20 07:00 07/14/20 07:10 07/14/20 07:00 07/14/20 07:00 Oxygen Flow Rate (L/min) 10 Oxygen Delivery Method Mechanical Ventilator Weight: 269 lb 13.533 oz Body Mass Index (BMI) 48.9 Finger Stick Blood Glucose 88 Intake and Output for Last 24 Hours 07/12/20 07/13/20 07/14/20 23:59 23:59 23:59 Intake Total 1289.22 / 1329.07 1860.77 / 2021.87 924.36 / 924.36 Output Total 790 / 850 1130 / 1430 650 / 650 Balance 499.22 / 479.07 730.77 / 591.87 274.36 / 274.36 General: Alert, Cooperative, - - Trying to follow commands, on mechanical ventilation. HEENT: Atraumatic, PERRLA, EOMI, Normocephalic Oral: Moist Mucosa, No Gingival or Mucosal Lesions/ Ulcerations Neck: Supple, No JVD, Negative Carotid Bruits, Trachea Midline, Thyroid Normal Size and Texture Lungs: No rhonchi, No wheeze, No rales, Diminished, Short of Breath, - - Decreased with sounds bilateral, otherwise clear. Cardiovascular: Regular rate, Regular Rhythm, Normal S1, Normal S2, PMI Normal Abdomen: Bowel Sounds Present, Soft, Non Tender, Non-Distended, No Hepato- splenomegaly, Obese Extremities: No clubbing, No cyanosis, Edema Skin: No rashes, No breakdown Lymphatic: No Cervical, Supraclavicular, or Inguinal Adenopathy Neurological: Cranial nerves II-XII grossly intact, Neuro grossly intact Psych/Mental Status: Appropriate, Flat Affect Microbiology Past 72 Hours 07/08/20 22:40 Blood Culture (Wb) - Left Forearm Blood Culture - Final No growth in 5 days. 07/08/20 22:30 Blood Culture (Wb) - Right Hand Blood Culture - Final No growth in 5 days. 07/12/20 09:20 Sputum, Induced/Lukens Gram Stain - Final 07/12/20 09:20 Sputum, Induced/Lukens Respiratory Culture - Preliminary Appears to be normal respiratory william. Further studies to follow. 07/10/20 13:45 Sputum, Expectorated/Coughed Gram Stain - Final 07/10/20 13:45 Sputum, Expectorated/Coughed Respiratory Culture - Final Culture exhibits no growth. Laboratory Results 07/13/20 12:00: PT 18.3 H, INR 1.6, APTT 53.9 H 07/13/20 12:01: POC Glucose 247 H 07/13/20 16:49: POC Glucose 263 H 07/13/20 22:47: APTT 145.1 H* 07/14/20 00:25: POC Glucose 299 H 07/14/20 04:25: WBC 21.6 H, RBC 4.72, Hgb 12.6, Hct 39.8, MCV 84.3, MCH 26.7 L, MCHC 31.7 L, RDW Std Deviation 48.5 H, RDW Coeff of Rahel 15.9 H, Plt Count 366, MPV 12.8 H, Immature Gran % (Auto) 3.100 H, Neut % (Auto) 84.5 H, Lymph % (Auto) 4.6 L, [place] % (Auto) 7.4, Eos % (Auto) 0.0, Baso % (Auto) 0.4, Absolute Neuts (auto) 18.2 H, Absolute Lymphs (auto) 1.00, Nucleated RBC % 0, Differential Comment SCANNED, Diff Path Review Reviewed 07/14/20 04:25: Sodium 135 L, Potassium 4.6, Chloride 102, Carbon Dioxide 22.0, Anion Gap 11, BUN 81 H, Creatinine 2.06 H, Estim Creat Clear Calc 19.81, Est GFR (MDRD) Af Amer 31 L, Est GFR (MDRD) Non-Af 25 L, BUN/Creatinine Ratio 39.3 H, Glucose 356 H, Calcium 7.4 L 07/14/20 05:37: POC Glucose 350 H 07/14/20 08:50: APTT 157.0 H* Current Medications Acetaminophen (Tylenol Liquid) 650 mg GT Q6H PRN PRN PRN Reason: Pain Score 1-10/Temp > 100.7 F Last Admin: 07/12/20 11:36 Dose: 650 mg Documented by: Albuterol Sulfate (Proair Hfa (Sp) Surgery/Vent Pts) 1 puff INHALATION Q2H PRN PRN PRN Reason: SHORTNESS OF BREATH/WHEEZING Atorvastatin Calcium (Lipitor) 20 mg GT QHS [facility] Last Admin: 07/13/20 21:29 Dose: 20 mg Documented by: Chlorhexidine Gluconate () 15 ml PO BID [facility] Last Admin: 07/13/20 20:14 Dose: 15 ml Documented by: Dexamethasone (Decadron) 6 mg GT DAILY@0800 [facility] Last Admin: 07/14/20 08:35 Dose: 6 mg Documented by: Dextrose (D50w Syringe) 0 gm IV X1 PRN; Protocol PRN Reason: Hypoglycemia Famotidine (Pepcid) 20 mg GT BID [facility] Last Admin: 07/14/20 08:35 Dose: 20 mg Documented by: Glucagon () 1 mg IM .X1 PRN PRN Reason: Hypoglycemia Guaifenesin (Robitussin) 10 ml GT Q6 [facility] Last Admin: 07/14/20 05:13 Dose: 10 ml Documented by: Sodium Chloride () 250 mls @ 15 mls/hr IV .[id number] PRN PRN Reason: Additional IVPB Infusion Last Infusion: 07/14/20 06:00 Dose: 0 mls/hr Documented by: Remdesivir (Investigational) (100 mg/ Sodium Chloride) 250 mls @ 125 mls/hr IV DAILY [facility]; Protocol Stop: 07/15/20 11:59 Last Infusion: 07/13/20 13:05 Dose: Infused Documented by: Piperacillin Sod/Tazobactam (Sod 3.375 gm/ Sodium Chloride) 50 mls @ 12.5 mls/hr IV Q8 [facility] Last Infusion: 07/14/20 06:00 Dose: 12.5 mls/hr Documented by: Propofol (Diprivan) 1,000 mg in 100 mls @ 7.344 mls/hr CONT INF .Q12H [facility]; Protocol Last Titration: 07/14/20 07:00 Dose: 15 mcg/kg/min, 11 mls/hr Documented by: Fentanyl Citrate 1,000 mcg/ (Sodium Chloride) 100 mls @ 5 mls/hr CONT INF .Q20H [facility]; Protocol Last Titration: 07/14/20 07:00 Dose: 125 mcg/hr, 12.5 mls/hr Documented by: Norepinephrine Bitartrate 8 mg (/ Sodium Chloride) 250 mls @ 9.375 mls/hr CONT INF .[id number] [facility]; Protocol Last Titration: 07/14/20 07:00 Dose: 12.5 mcg/min, 23.4 mls/hr Documented by: Enteral Nutritional Formula (Vital Af 1.2 Wong Liquid) 1,000 mls @ 65 mls/hr GT .[id number] [facility] Last Admin: 07/14/20 03:37 Dose: Not Given Documented by: Heparin Sodium/Sodium Chloride () 25,000 unit in 250 mls @ 16 mls/hr IV .[id number] [facility]; Protocol Last Infusion: 07/14/20 09:00 Dose: 1,300 units/hr, 13 mls/hr Documented by: Insulin Glargine (Lantus (Bkc)) 50 units SC BID [facility] Insulin Human Lispro (Humalog Kwikpen (Bkc)) 0 unit SC Q6 [facility]; Protocol Last Admin: 07/14/20 05:41 Dose: 12 u Documented by: Nystatin (Mycostatin Powder) 1 applic TOPICAL 4X/DAY PRN PRN; Protocol PRN Reason: SKIN Last Admin: 07/14/20 05:14 Dose: 1 applicatio Documented by: Ondansetron HCl (Zofran) 4 mg IV Q6H PRN PRN PRN Reason: NAUSEA/VOMITING Last Admin: 07/11/20 11:13 Dose: 4 mg Documented by: Senna/Docusate Sodium (Senokot-S, Brittney-Colace) 2 tablet GT BID [facility] Last Admin: 07/14/20 08:35 Dose: 2 tablet Documented by: Sertraline HCl (Zoloft) 100 mg GT DAILY [facility] Last Admin: 07/14/20 08:34 Dose: 100 mg Documented by: Sodium Chloride () 10 - 40 ml IV UD PRN PRN Reason: SALINE FLUSH Last Admin: 07/12/20 11:38 Dose: 40 ml Documented by: Sodium Chloride ([place] Nasal [place]) 2 spray NASAL Q2H PRN PRN Reason: NASAL DRYNESS Last Admin: 07/09/20 21:40 Dose: 2 spray Documented by: Medical Necessity - Tobacco Use Smoking Status: Never smoker Assessment/Plan All Active Problems (Last Reviewed 01/22/20 @ 15:[address] Philipp Ybarra MD) Pneumonia due to COVID-19 virus (Acute) This is a 69 years old female patient presented to the emergency room because of weakness, fatigue, mild shortness of breath and she was found to have acute bilateral COVID-19 pneumonia complicated by acute hypoxic respiratory failure due to ARDS. #1 acute hypoxic respiratory failure/ARDS: Due to COVID-19 pneumonia, on mechanical ventilation. She is requiring high PEEP and oxygen requirement. She is on IV fentanyl drip as well as propofol for sedation. She is on IV Levophed drip for the septic shock. She has been afebrile but WBC is trending up. She is on IV Decadron, IV Zosyn and IV remdesivir as well as IV heparin drip. Critical care on the case. Plan to continue same treatment. #2 acute bilateral COVID-19 pneumonia: She is on IV Decadron, IV Zosyn and IV remdesivir. She received 1 unit of convalescent plasma. She has been afebrile, WBC is trending up. Blood culture showed no growth in 5 days. Urine culture showed no growth. Sputum culture revealed normal aspiratory william. Respiratory panel for viruses were negative. Pneumococcal and Legionella antigen were negative. Plan to continue same treatment. #3 disruptive shock: Attributed to sedatives namely propofol. Currently, she is on IV Levophed drip. Blood pressure is borderline. Possible secondary bacterial pneumonia cannot be ruled out and that is why patient is on IV Zosyn. Cultures are negative as above. Plan to continue same treatment. #4 stage III chronic kidney disease: Baseline creatinine has been around 1.2 to 1.8 mg/dL. On admission, it was 1.25 and it came up to 2.06 today. Patient is on tube feeds. Plan to monitor. #5 uncontrolled type 2 diabetes mellitus: Blood sugar has been uncontrolled zahida use of IV Decadron. She is on Lantus and sliding scale and dosage has been adjusted today. #6 chronic diastolic CHF/nonischemic cardiomyopathy: She is on statins. Diuretics, Coreg and lisinopril are on hold because of worsening kidney function as well as disruptive shock. #7 depression: Continue sertraline. #8 DVT prophylaxis: She is on IV heparin drip. This note was generated with [employer] dictation software. It may contain incorrect words, spelling, and punctuation that were not noted in checking the note before signing. Inpatient E&M: 88580 Subs Hosp L3
[2020-07-14] MEDS: Insulin Lispro 100 UNIT/ML INSULN.PEN 20 UNIT SC (10:00)
[2020-07-14] MEDS: Chlorhexidine 15 ML PO ×2 (10:14→21:33)
[2020-07-14 10:15] LABS: Bedside Glucose 345 mg/dL (70-110)
[2020-07-14] MEDS: Propofol 10MG/Ml 1,000 MG/100 ML Bottle 7.3 MG CONT INF (10:29)
--- NOTE | 2020-07-14 10:35 | CASEMGMT ---
JERO LOUIS Note: participated in ICU interdisciplinary rounds. Patient remains on ventilator, 70% oxygen with plan to wean to 60% today if patient tolerates. TF started and insulin SSI for elevated BS likely due to Decadron medication. Pt remains on Levophed, increased this am. -DIETER called [facility] choice SN[facility], and they are not taking COVID + patients. -Call to Sister Corrigan HCPOA. Updated Margarita that patient is still on ventilator and not able to participate in dc planning at this time. Meenu also updated that [facility] is not taking Covid + patients. Requested Meenu give CM her city and zip ([place], [address]) and other facilities can be reviewed. states she lives near [facility] and there may be facilities there. Registration updated 's phone number, city and zip for patient's demographic sheet. JERO LOUIS let know that DIETER will be active with dc planning also and is requesting a call back with updated information when available. JERO LOUIS also let know that if pt returns home in [facility] was referred and pt can resume with Pass[employer] services. As pt's close friend is moving, feels she will not be able to live alone successfully. -DIETER Claire updated on above and will review for SNF's. DC PLAN: undetermined. Sister would like SNF placement near her, patient is unable to participate with decision making @ this time. Charito PARISN JERO ACM
[2020-07-14 11:06] LABS: Partial Thromboplast Time 90.6 Seconds (24.1-36.2)
[2020-07-14] MEDS: Vital AF 1.2 Cal Liquid 1,000 ML 65 ML GT (13:12)
[2020-07-14 13:46] LABS: Bedside Glucose 393 mg/dL (70-110)
--- NOTE | 2020-07-14 14:57 | PCM.PN.ID ---
Subjective: Breathing ok, no fever, remains on vent and pressor - Physical Exam Vitals/I&O's: Vital Signs Temp Pulse Resp BP Pulse Ox 98.7 F 74 17 116/81 H 93 07/14/20 12:00 07/14/20 13:46 07/14/20 13:46 07/14/20 14:30 07/14/20 13:46 Oxygen Flow Rate (L/min) 10 Oxygen Delivery Method Mechanical Ventilator Weight: 122.4 kg Body Mass Index (BMI) 48.9 Finger Stick Blood Glucose 88 Intake and Output for Last 24 Hours 07/12/20 07/13/20 07/14/20 23:59 23:59 23:59 Intake Total 1289.22 / 1329.07 1860.77 / 2021.87 1666.96 / 1666.96 Output Total 790 / 850 1130 / 1430 750 / 750 Balance 499.22 / 479.07 730.77 / 591.87 916.96 / 916.96 General: Alert, Cooperative Lungs: Diminished Cardiovascular: Regular rate, Regular Rhythm Abdomen: Soft, Non Tender, Non-Distended Skin: No rashes Microbiology Past 72 Hours 07/08/20 22:40 Blood Culture (Wb) - Left Forearm Blood Culture - Final No growth in 5 days. 07/08/20 22:30 Blood Culture (Wb) - Right Hand Blood Culture - Final No growth in 5 days. 07/12/20 09:20 Sputum, Induced/Lukens Gram Stain - Final 07/12/20 09:20 Sputum, Induced/Lukens Respiratory Culture - Preliminary Appears to be normal respiratory william. Further studies to follow. 07/10/20 13:45 Sputum, Expectorated/Coughed Gram Stain - Final 07/10/20 13:45 Sputum, Expectorated/Coughed Respiratory Culture - Final Culture exhibits no growth. Laboratory Results 07/13/20 16:49: POC Glucose 263 H 07/13/20 22:47: APTT 145.1 H* 07/14/20 00:25: POC Glucose 299 H 07/14/20 04:25: WBC 21.6 H, RBC 4.72, Hgb 12.6, Hct 39.8, MCV 84.3, MCH 26.7 L, MCHC 31.7 L, RDW Std Deviation 48.5 H, RDW Coeff of Rahel 15.9 H, Plt Count 366, MPV 12.8 H, Immature Gran % (Auto) 3.100 H, Neut % (Auto) 84.5 H, Lymph % (Auto) 4.6 L, [place] % (Auto) 7.4, Eos % (Auto) 0.0, Baso % (Auto) 0.4, Absolute Neuts (auto) 18.2 H, Absolute Lymphs (auto) 1.00, Nucleated RBC % 0, Differential Comment SCANNED, Diff Path Review Reviewed 07/14/20 04:25: Sodium 135 L, Potassium 4.6, Chloride 102, Carbon Dioxide 22.0, Anion Gap 11, BUN 81 H, Creatinine 2.06 H, Estim Creat Clear Calc 19.81, Est GFR (MDRD) Af Amer 31 L, Est GFR (MDRD) Non-Af 25 L, BUN/Creatinine Ratio 39.3 H, Glucose 356 H, Calcium 7.4 L 07/14/20 05:37: POC Glucose 350 H 07/14/20 08:50: APTT Cancelled 07/14/20 09:45: POC Glucose 345 H 07/14/20 09:55: APTT 90.6 H* 07/14/20 13:19: POC Glucose 393 H Current Medications Acetaminophen (Tylenol Liquid) 650 mg GT Q6H PRN PRN PRN Reason: Pain Score 1-10/Temp > 100.7 F Last Admin: 07/12/20 11:36 Dose: 650 mg Documented by: Albuterol Sulfate (Proair Hfa (Sp) Surgery/Vent Pts) 1 puff INHALATION Q2H PRN PRN PRN Reason: SHORTNESS OF BREATH/WHEEZING Atorvastatin Calcium (Lipitor) 20 mg GT QHS [facility] Last Admin: 07/13/20 21:29 Dose: 20 mg Documented by: Chlorhexidine Gluconate () 15 ml PO BID [facility] Last Admin: 07/14/20 10:14 Dose: 15 ml Documented by: Dexamethasone (Decadron) 6 mg GT DAILY@0800 [facility] Stop: 07/18/20 08:01 Last Admin: 07/14/20 08:35 Dose: 6 mg Documented by: Dextrose (D50w Syringe) 0 gm IV X1 PRN; Protocol PRN Reason: Hypoglycemia Famotidine (Pepcid) 20 mg GT BID [facility] Last Admin: 07/14/20 08:35 Dose: 20 mg Documented by: Glucagon () 1 mg IM .X1 PRN PRN Reason: Hypoglycemia Guaifenesin (Robitussin) 10 ml GT Q6 [facility] Last Admin: 07/14/20 13:11 Dose: 10 ml Documented by: Sodium Chloride () 250 mls @ 15 mls/hr IV .[id number] PRN PRN Reason: Additional IVPB Infusion Last Infusion: 07/14/20 06:00 Dose: 0 mls/hr Documented by: Remdesivir (Investigational) (100 mg/ Sodium Chloride) 250 mls @ 125 mls/hr IV DAILY [facility]; Protocol Stop: 07/15/20 11:59 Last Admin: 07/14/20 13:02 Dose: 125 mls/hr Documented by: Piperacillin Sod/Tazobactam (Sod 3.375 gm/ Sodium Chloride) 50 mls @ 12.5 mls/hr IV Q8 [facility] Last Infusion: 07/14/20 06:00 Dose: 12.5 mls/hr Documented by: Propofol (Diprivan) 1,000 mg in 100 mls @ 7.344 mls/hr CONT INF .Q12H [facility]; Protocol Last Titration: 07/14/20 14:00 Dose: 10 mcg/kg/min, 7.3 mls/hr Documented by: Fentanyl Citrate 1,000 mcg/ (Sodium Chloride) 100 mls @ 5 mls/hr CONT INF .Q20H [facility]; Protocol Last Titration: 07/14/20 14:00 Dose: 125 mcg/hr, 12.5 mls/hr Documented by: Norepinephrine Bitartrate 8 mg (/ Sodium Chloride) 250 mls @ 9.375 mls/hr CONT INF .[id number] [facility]; Protocol Last Titration: 07/14/20 14:30 Dose: 20 mcg/min, 37.5 mls/hr Documented by: Enteral Nutritional Formula (Vital Af 1.2 Wong Liquid) 1,000 mls @ 65 mls/hr GT .[id number] [facility] Last Admin: 07/14/20 13:12 Dose: 65 mls/hr Documented by: Heparin Sodium/Sodium Chloride () 25,000 unit in 250 mls @ 16 mls/hr IV .[id number] [facility]; Protocol Last Infusion: 07/14/20 14:00 Dose: 1,200 units/hr, 12 mls/hr Documented by: Insulin Glargine (Lantus (Bk)) 50 units SC BID [facility] Last Admin: 07/14/20 10:02 Dose: 50 units Documented by: Insulin Human Lispro (Humalog Kwikpen ([facility])) 0 unit SC Q6 [facility]; Protocol Last Admin: 07/14/20 13:21 Dose: 14 u Documented by: Nystatin (Mycostatin Powder) 1 applic TOPICAL 4X/DAY PRN PRN; Protocol PRN Reason: SKIN Last Admin: 07/14/20 05:14 Dose: 1 applicatio Documented by: Ondansetron HCl (Zofran) 4 mg IV Q6H PRN PRN PRN Reason: NAUSEA/VOMITING Last Admin: 07/11/20 11:13 Dose: 4 mg Documented by: Senna/Docusate Sodium (Senokot-S, Brittney-Colace) 2 tablet GT BID [facility] Last Admin: 07/14/20 08:35 Dose: 2 tablet Documented by: Sertraline HCl (Zoloft) 100 mg GT DAILY [facility] Last Admin: 07/14/20 08:34 Dose: 100 mg Documented by: Sodium Chloride () 10 - 40 ml IV UD PRN PRN Reason: SALINE FLUSH Last Admin: 07/12/20 11:38 Dose: 40 ml Documented by: Sodium Chloride ([place] Nasal [place]) 2 spray NASAL Q2H PRN PRN Reason: NASAL DRYNESS Last Admin: 07/09/20 21:40 Dose: 2 spray Documented by: Medical Necessity - Tobacco Use Smoking Status: Never smoker Route of nutrition/ use of supplements: [] Nutritional Intake: [] IV Site: [] Hightower Catheter: [] - Assessment/Plan Antibiotics: [] Assessment/Plan: [] covid - receiving remdesivir and dexamethasone, also was given plasma. On zosyn, cxs remain neg so far. Rising wbc but improving O2. Worsening ALICIA. No fever. Will follow.
[2020-07-14 17:20] LABS: Partial Thromboplast Time 143.5 Seconds (24.1-36.2)
[2020-07-14] MEDS: 0.9% Saline Lock 10 ML Syringe IV (18:13)
[2020-07-14 19:41] LABS: Bedside Glucose 347 mg/dL (70-110)
[2020-07-14] MEDS: Atorvastatin Calcium 20 MG Tablet GT (21:26)
[2020-07-15] VITALS (66 sets, daily range): BP systolic 64–146; BP diastolic 32–65; PULSE 81–122; RESP 14–21; TEMP 37.3–38.3; O2SAT 89–100
[2020-07-15] MEDS: Insulin Lispro 100 UNIT/ML INSULN.PEN SC ×4 (00:11→17:15)
[2020-07-15] MEDS: guaiFENesin 10 ML UDC (200MG/10ML) GT ×4 (00:12→17:16)
[2020-07-15 00:36] LABS: Bedside Glucose 418 mg/dL (70-110)
[2020-07-15] MEDS: TITRATION PARAMETER CHANGE 1 EACH IV (03:41)
[2020-07-15 04:34] LABS: Partial Thromboplast Time 88.7 Seconds (24.1-36.2)
[2020-07-15] MEDS: Vital AF 1.2 Cal Liquid 1,000 ML 65 ML GT (04:38)
[2020-07-15 05:37] LABS: Hematocrit 37.8 % (37-47); Hemoglobin 11.7 g/dL (12.0-15.0); Mean Corpuscular Hgb 26.5 pg (27.0-32.0); Mean Corpuscular Volume 85.5 fL (81-99); Mean Platelet Vol. 12.8 fl (6.2-12.0); POSITIVE COUNT YES; POSITIVE DIFFERENTIAL YES; POSITIVE MORPHOLOGY YES; Platelet Count 453 K/mm3 (150-450); RBC Distribution Width CV 16.1 % (11.6-14.6); RBC Distribution Width SD 50.7 fl (35.1-43.9); Red Blood Count 4.42 M/mm3 (4.2-5.4)
[2020-07-15 05:38] LABS: Differential Indicated MANUAL DIFF
[2020-07-15 05:39] LABS: White Blood Count 30.3 K/mm3 (4.4-11.0)
[2020-07-15 05:51] LABS: Anion Gap 11 (5-15); BUN 102 mg/dL (7-18); BUN/Creat Ratio 38.5 RATIO (10-20); Calcium,Total 7.1 mg/dL (8.5-10.1); Chloride 103 mmol/L (98-107); Creatinine, Serum 2.65 mg/dL (0.55-1.02); EST Glomerular Filtration Rate 19 mL/min (>60); Est Glom Filt Rate - Afr Amer 23 mL/min (>60); Glucose 360 mg/dL (74-106); Phosphorus 4.6 mg/dL (2.5-4.9); Potassium 4.3 mmol/L (3.5-5.1); Sodium Level 135 mmol/L (136-145)
[2020-07-15] MEDS: Insulin Lispro 100 UNIT/ML INSULN.PEN 15 UNIT SC (06:11)
[2020-07-15 06:52] LABS: Lymphocyte 5 % (19-41); Metamyelocyte 1 % (0-1); Monocyte 23 % (0-10); Neutrophil-Segmented 71 % (47-70); Total Cells Counted 100 (MANUAL DIFF)
[2020-07-15 06:53] LABS: Absolute Lymphocyte Count 1.52 X10^3/uL (0.83-4.51); Absolute Neutrophil Count 21.5 X10^3/uL (2.0-7.7); Lymphocyte # 1.52 X10^3/ul (4.0); Neutrophil # 21.51 X10^3/uL (2.7-7.7); Platelet Estimate SLT (ADEQ); Red Cell Morphology NORM C+C NORMAL (NORM C&C)
--- NOTE | 2020-07-15 07:02 | PN_ITS ---
Subjective: Patient was doing better overnight until approximately 4 AM. Patient had an episode of diarrhea and was given a bath. Patient with decompensation requiring increase in FiO2 to 70% and PEEP back up to 15. Patient blood sugars have remained elevated. Patient is currently on vasopressin and Levophed. Levophed requirements did increase during acute decompensation. General: Alert, No apparent distress, - - Morbidly obese. Good vent synchrony. HEENT: Atraumatic, PERRLA, EOMI, Normocephalic, - - No scleral icterus or injection noted Oral: Moist Mucosa, No Gingival or Mucosal Lesions/ Ulcerations Neck: Supple, No Nodes, Trachea Midline, - - Difficult to assess JVD secondary to body habitus Lungs: No rhonchi, No wheeze, No rales, Diminished, - - Symmetric expansion. Cardiovascular: Normal S1, Normal S2, No murmurs, No rub noted, No Gallop, Tachycardic Abdomen: Bowel Sounds Present, Soft, Non Tender, Non-Distended, Obese Extremities: No clubbing, No cyanosis, Edema - Anasarca Skin: - - No change compared to previous Musculoskeletal: No Tenderness to Palpation of Joints or Extremities Lymphatic: No Cervical, Supraclavicular, or Inguinal Adenopathy Neurological: Cranial nerves II-XII grossly intact, Neuro grossly intact, Motor Exam 5/5 strength throughout Psych/Mental Status: Alert and oriented to time, place, person, mood and affect Vital Signs Temp Pulse Resp BP Pulse Ox 37.5 C H 92 17 99/53 L 93 07/15/20 05:00 07/15/20 05:29 07/15/20 05:29 07/15/20 05:00 07/15/20 05:29 Oxygen Flow Rate (L/min) 10 Oxygen Delivery Method Mechanical Ventilator Weight: 125.3 kg Body Mass Index (BMI) 48.9 Finger Stick Blood Glucose 88 Intake and Output for Last 24 Hours 07/13/20 07/14/20 07/15/20 23:59 23:59 23:59 Intake Total 1860.77 / 2021.87 3425.37 / 3536.75 1439.44 / 1439.44 Output Total 1130 / 1430 925 / 925 125 / 125 Balance 730.77 / 591.87 2500.37 / 2611.75 1314.44 / 1314.44 Labs (Last 48 Hours) 07/13/20 07/13/20 07/13/20 03:40 03:40 05:35 WBC 17.2 H RBC 4.85 Hgb 12.9 Hct 41.5 MCV 85.6 MCH 26.6 L MCHC 31.1 L RDW Std Deviation 48.1 H RDW Coeff of Rahel 15.5 H Plt Count 197 MPV 12.8 H Immature Gran % (Auto) 1.600 H Neut % (Auto) 89.5 H Lymph % (Auto) 3.7 L Dougherty % (Auto) 4.7 Eos % (Auto) 0.3 Baso % (Auto) 0.2 Absolute Neuts (auto) 15.4 H Absolute Lymphs (auto) 0.63 L Total Counted Neutrophils % (Manual) Lymphocytes % (Manual) Monocytes % (Manual) Metamyelocytes % Nucleated RBC % 0 Differential Comment Diff Path Review Platelet Estimate RBC Morphology PT INR APTT Sodium 136 Potassium 4.3 Chloride 102 Carbon Dioxide 25.0 Anion Gap 9 BUN 61 H Creatinine 1.96 H Estim Creat Clear Calc 20.82 Est GFR (MDRD) Af Amer 32 L Est GFR (MDRD) Non-Af 27 L BUN/Creatinine Ratio 31.1 H Glucose 197 H Calcium 7.6 L Phosphorus Magnesium POC Glucose 224 H 07/13/20 07/13/20 07/13/20 12:00 12:01 16:49 WBC RBC Hgb Hct MCV MCH MCHC RDW Std Deviation RDW Coeff of Rahel Plt Count MPV Immature Gran % (Auto) Neut % (Auto) Lymph % (Auto) Dougherty % (Auto) Eos % (Auto) Baso % (Auto) Absolute Neuts (auto) Absolute Lymphs (auto) Total Counted Neutrophils % (Manual) Lymphocytes % (Manual) Monocytes % (Manual) Metamyelocytes % Nucleated RBC % Differential Comment Diff Path Review Platelet Estimate RBC Morphology PT 18.3 H INR 1.6 APTT 53.9 H Sodium Potassium Chloride Carbon Dioxide Anion Gap BUN Creatinine Estim Creat Clear Calc Est GFR (MDRD) Af Amer Est GFR (MDRD) Non-Af BUN/Creatinine Ratio Glucose Calcium Phosphorus Magnesium POC Glucose 247 H 263 H 07/13/20 07/14/20 07/14/20 22:47 00:25 04:25 WBC 21.6 H RBC 4.72 Hgb 12.6 Hct 39.8 MCV 84.3 MCH 26.7 L MCHC 31.7 L RDW Std Deviation 48.5 H RDW Coeff of Rahel 15.9 H Plt Count 366 MPV 12.8 H Immature Gran % (Auto) 3.100 H Neut % (Auto) 84.5 H Lymph % (Auto) 4.6 L Dougherty % (Auto) 7.4 Eos % (Auto) 0.0 Baso % (Auto) 0.4 Absolute Neuts (auto) 18.2 H Absolute Lymphs (auto) 1.00 Total Counted Neutrophils % (Manual) Lymphocytes % (Manual) Monocytes % (Manual) Metamyelocytes % Nucleated RBC % 0 Differential Comment SCANNED Diff Path Review Reviewed Platelet Estimate RBC Morphology PT INR APTT 145.1 H* Sodium Potassium Chloride Carbon Dioxide Anion Gap BUN Creatinine Estim Creat Clear Calc Est GFR (MDRD) Af Amer Est GFR (MDRD) Non-Af BUN/Creatinine Ratio Glucose Calcium Phosphorus Magnesium POC Glucose 299 H 07/14/20 07/14/20 07/14/20 04:25 05:37 08:50 WBC RBC Hgb Hct MCV MCH MCHC RDW Std Deviation RDW Coeff of Rahel Plt Count MPV Immature Gran % (Auto) Neut % (Auto) Lymph % (Auto) Dougherty % (Auto) Eos % (Auto) Baso % (Auto) Absolute Neuts (auto) Absolute Lymphs (auto) Total Counted Neutrophils % (Manual) Lymphocytes % (Manual) Monocytes % (Manual) Metamyelocytes % Nucleated RBC % Differential Comment Diff Path Review Platelet Estimate RBC Morphology PT INR APTT Cancelled Sodium 135 L Potassium 4.6 Chloride 102 Carbon Dioxide 22.0 Anion Gap 11 BUN 81 H Creatinine 2.06 H Estim Creat Clear Calc 19.81 Est GFR (MDRD) Af Amer 31 L Est GFR (MDRD) Non-Af 25 L BUN/Creatinine Ratio 39.3 H Glucose 356 H Calcium 7.4 L Phosphorus Magnesium POC Glucose 350 H 07/14/20 07/14/20 07/14/20 09:45 09:55 13:19 WBC RBC Hgb Hct MCV MCH MCHC RDW Std Deviation RDW Coeff of Rahel Plt Count MPV Immature Gran % (Auto) Neut % (Auto) Lymph % (Auto) Dougherty % (Auto) Eos % (Auto) Baso % (Auto) Absolute Neuts (auto) Absolute Lymphs (auto) Total Counted Neutrophils % (Manual) Lymphocytes % (Manual) Monocytes % (Manual) Metamyelocytes % Nucleated RBC % Differential Comment Diff Path Review Platelet Estimate RBC Morphology PT INR APTT 90.6 H* Sodium Potassium Chloride Carbon Dioxide Anion Gap BUN Creatinine Estim Creat Clear Calc Est GFR (MDRD) Af Amer Est GFR (MDRD) Non-Af BUN/Creatinine Ratio Glucose Calcium Phosphorus Magnesium POC Glucose 345 H 393 H 07/14/20 07/14/20 07/15/20 16:30 17:56 00:04 WBC RBC Hgb Hct MCV MCH MCHC RDW Std Deviation RDW Coeff of Rahel Plt Count MPV Immature Gran % (Auto) Neut % (Auto) Lymph % (Auto) Dougherty % (Auto) Eos % (Auto) Baso % (Auto) Absolute Neuts (auto) Absolute Lymphs (auto) Total Counted Neutrophils % (Manual) Lymphocytes % (Manual) Monocytes % (Manual) Metamyelocytes % Nucleated RBC % Differential Comment Diff Path Review Platelet Estimate RBC Morphology PT INR APTT 143.5 H* Sodium Potassium Chloride Carbon Dioxide Anion Gap BUN Creatinine Estim Creat Clear Calc Est GFR (MDRD) Af Amer Est GFR (MDRD) Non-Af BUN/Creatinine Ratio Glucose Calcium Phosphorus Magnesium POC Glucose 347 H 418 H 07/15/20 07/15/20 07/15/20 04:05 04:05 04:05 WBC 30.3 H* RBC 4.42 Hgb 11.7 L Hct 37.8 MCV 85.5 MCH 26.5 L MCHC 31.0 L RDW Std Deviation 50.7 H RDW Coeff of Rahel 16.1 H Plt Count 453 H MPV 12.8 H Immature Gran % (Auto) Neut % (Auto) Not Reportable Lymph % (Auto) Dougherty % (Auto) Eos % (Auto) Baso % (Auto) Absolute Neuts (auto) 21.5 H Absolute Lymphs (auto) 1.52 Total Counted 100 Neutrophils % (Manual) 71 H Lymphocytes % (Manual) 5 L Monocytes % (Manual) 23 H Metamyelocytes % 1 Nucleated RBC % Differential Comment Diff Path Review May foll Platelet Estimate SLT RBC Morphology NORM C+C PT INR APTT 88.7 H Sodium 135 L Potassium 4.3 Chloride 103 Carbon Dioxide 21.0 Anion Gap 11 BUN 102 H* Creatinine 2.65 H Estim Creat Clear Calc 15.40 Est GFR (MDRD) Af Amer 23 L Est GFR (MDRD) Non-Af 19 L BUN/Creatinine Ratio 38.5 H Glucose 360 H Calcium 7.1 L Phosphorus 4.6 Magnesium 2.0 POC Glucose Microbiology 07/08/20 22:40 Blood Culture (Wb) - Left Forearm Blood Culture - Final No growth in 5 days. 07/08/20 22:30 Blood Culture (Wb) - Right Hand Blood Culture - Final No growth in 5 days. 07/12/20 09:20 Sputum, Induced/Lukens Gram Stain - Final 07/12/20 09:20 Sputum, Induced/Lukens Respiratory Culture - Preliminary Appears to be normal respiratory william. Further studies to follow. Medical Necessity - Tobacco Use Smoking Status: Never smoker Assessment/Plan All Active Problems (Last Reviewed 01/22/20 @ 15:[address] Philipp Ybarra MD) Pneumonia due to COVID-19 virus (Acute) RECOMMENDATIONS: 1. Wean PEEP and FiO2 per orders to maintain saturations at or above 90%. 2. Continue Decadron, Remdesevir and heparin drip. 3. Consult nephrology for recommendations 4. Increase Lantus and sliding scale. Additional insulin as necessary. 5. Continue Levophed and wean to maintain a mean arterial pressure at or above 65 mmHg. 6. Continue appropriate GI prophylaxis. 7. Send C. difficile IMPRESSIONS: 1. Acute hypoxemic respiratory failure secondary to ARDS due to COVID pneumonia The patient initially presented to the hospital with symptoms concerning for coronavirus infection and subsequently tested positive on July 08. Although initially she was on very minimal supplemental oxygen, the patient d ecompensated from a respiratory perspective over the course of the ensuing days. Chest x-ray revealed progressive bilateral infiltrates. Although attempts were made to utilize noninvasive positive pressure ventilatory support, the patient continued to decompensate from a clinical perspective and had to be intubated on the morning of July 12. She remains on Decadron, therapeutic Lovenox and Rem desevir. The patient also received convalescent plasma on July 11. Patient with elevated blood sugars, likely secondary to Decadron, so coverage will be increased. 2. Distributive shock Most likely secondary to sedative medication use, as the patient became hemodynamically unstable after she was started on the aforementioned medications following intubation. However, given the progressive nature of the infiltrates noted on x-ray, she was placed on empiric antimicrobials as well, should she have an underlying superimposed bacterial infection. Patient was significant elevation of leukocytosis and development of diarrhea. C. difficile will be sent. Levophed will be weaned to maintain a mean arterial pressure at or above 65 mmHg. Recommend conservative fluid use, given underlying depressed ejection fraction. 3. Acute on chronic kidney disease Likely prerenal in etiology and related to ischemic ATN in the setting #2. Continue current supportive measures. Continue vasopressor support to maintain hemodynamic stability. Continue to hold diuretics with increasing creatinine. Consult nephrology for recommendations related to renal replacement therapy given elevated BUN. Remaining electrolytes appear to be stable at this time. Will need to hold heparin drip before placement of a dialysis line. 4. History of nonischemic cardiomyopathy/heart failure with reduced ejection fraction Diuretic regimen remains on hold due to hemodynamic instability and acute kidney injury. Recommend conservative use of fluids, given underlying depressed ejection fraction. 5. Morbid obesity/diabetes mellitus/chronic kidney disease/depression/high risk for sleep disordered breathing/CODE STATUS Complicates care, management, recovery and prognosis. Continue sliding scale insulin regimen. Okay to continue tube feeds today from my perspective. The patient remains a full code, following recent conversation with the patient. TIME: 35 minutes of critical care time, independent of procedures, was spent addressing the patient's acute hypoxemic respiratory failure, ARDS secondary to COVID pneumonia, distributive shock, acute on chronic kidney disease, history of congestive heart failure, review of all data and collaboration with care team. (5:20 AM to 6:30 AM) [id number]: [id number] Critical care first hour
--- NOTE | 2020-07-15 08:48 | PN_ITS ---
Subjective: Chief complaint: Follow-up after admission for acute bilateral viral COVID-19 pneumonia complicated by acute hypoxic respiratory failure secondary to ARDS, developed acute kidney injury on stage III chronic kidney disease with uremia found to have disruptive shock attributed to sedatives. Patient seen and examined. Early this morning, patient decompensated while getting a bath, required higher FiO2 to 70% and PEEP up to 15. She is alert, spontaneous eye opening, following commands. She is on vasopressin and Levophed drip. Maximum temperature overnight is 99.5 Fahrenheit, blood pressure is borderline, on mechanical ventilation. - Physical Exam Vitals/I&O's: Vital Signs Temp Pulse Resp BP Pulse Ox 99.2 F H 98 18 99/65 94 07/15/20 06:00 07/15/20 08:00 07/15/20 06:38 07/15/20 06:00 07/15/20 06:38 Oxygen Flow Rate (L/min) 10 Oxygen Delivery Method Mechanical Ventilator Weight: 276 lb 3.827 oz Body Mass Index (BMI) 48.9 Finger Stick Blood Glucose 88 Intake and Output for Last 24 Hours 07/13/20 07/14/20 07/15/20 23:59 23:59 23:59 Intake Total 1860.77 / 2021.87 3425.37 / 3536.75 1505.73 / 1505.73 Output Total 1130 / 1430 925 / 925 125 / 125 Balance 730.77 / 591.87 2500.37 / 2611.75 1380.73 / 1380.73 General: Alert, Cooperative, - - Following commands, on mechanical ventilation. HEENT: Atraumatic, PERRLA, EOMI Oral: Moist Mucosa, No Gingival or Mucosal Lesions/ Ulcerations Neck: Supple, No JVD, Negative Carotid Bruits, Trachea Midline, Thyroid Normal Size and Texture Lungs: No wheeze, No rales, Diminished, Rhonchi, - - Decreased breath sounds bilateral, scattered rhonchi. Cardiovascular: Regular rate, Regular Rhythm, Normal S1, Normal S2, PMI Normal, Tachycardic Abdomen: Bowel Sounds Present, Soft, Non Tender, Non-Distended, No Hepato- splenomegaly, Obese Extremities: No clubbing, No cyanosis, No edema Skin: No rashes, No breakdown Lymphatic: No Cervical, Supraclavicular, or Inguinal Adenopathy Neurological: Cranial nerves II-XII grossly intact, Neuro grossly intact Psych/Mental Status: Appropriate, Flat Affect Microbiology Past 72 Hours 07/12/20 09:20 Sputum, Induced/Lukens Gram Stain - Final 07/12/20 09:20 Sputum, Induced/Lukens Respiratory Culture - Final 07/08/20 22:40 Blood Culture (Wb) - Left Forearm Blood Culture - Final No growth in 5 days. 07/08/20 22:30 Blood Culture (Wb) - Right Hand Blood Culture - Final No growth in 5 days. 07/10/20 13:45 Sputum, Expectorated/Coughed Gram Stain - Final 07/10/20 13:45 Sputum, Expectorated/Coughed Respiratory Culture - Final Culture exhibits no growth. Laboratory Results 07/14/20 04:25: Diff Path Review Reviewed 07/14/20 08:50: APTT Cancelled 07/14/20 09:45: POC Glucose 345 H 07/14/20 09:55: APTT 90.6 H* 07/14/20 13:19: POC Glucose 393 H 07/14/20 16:30: APTT 143.5 H* 07/14/20 17:56: POC Glucose 347 H 07/15/20 00:04: POC Glucose 418 H 07/15/20 04:05: APTT 88.7 H 07/15/20 04:05: WBC 30.3 H*, RBC 4.42, Hgb 11.7 L, Hct 37.8, MCV 85.5, MCH 26.5 L, MCHC 31.0 L, RDW Std Deviation 50.7 H, RDW Coeff of Rahel 16.1 H, Plt Count 453 H, MPV 12.8 H, Neut % (Auto) Not Reportable, Absolute Neuts (auto) 21.5 H, Absolute Lymphs (auto) 1.52, Total Counted 100, Neutrophils % (Manual) 71 H, Lymphocytes % (Manual) 5 L, Monocytes % (Manual) 23 H, Metamyelocytes % 1, Diff Path Review May , Platelet Estimate SLT, RBC Morphology NORM C+C 07/15/20 04:05: Sodium 135 L, Potassium 4.3, Chloride 103, Carbon Dioxide 21.0, Anion Gap 11, BUN 102 H*, Creatinine 2.65 H, Estim Creat Clear Calc 15.40, Est GFR (MDRD) Af Amer 23 L, Est GFR (MDRD) Non-Af 19 L, BUN/Creatinine Ratio 38.5 H , Glucose 360 H, Calcium 7.1 L, Phosphorus 4.6, Magnesium 2.0 Current Medications Acetaminophen (Tylenol Liquid) 650 mg GT Q6H PRN PRN PRN Reason: Pain Score 1-10/Temp > 100.7 F Last Admin: 07/12/20 11:36 Dose: 650 mg Documented by: Albuterol Sulfate (Proair Hfa (Sp) Surgery/Vent Pts) 1 puff INHALATION Q2H PRN PRN PRN Reason: SHORTNESS OF BREATH/WHEEZING Atorvastatin Calcium (Lipitor) 20 mg GT QHS [facility] Last Admin: 07/14/20 21:26 Dose: 20 mg Documented by: Chlorhexidine Gluconate () 15 ml PO BID [facility] Last Admin: 07/14/20 21:33 Dose: 15 ml Documented by: Dexamethasone (Decadron) 6 mg GT DAILY@0800 [facility] Stop: 07/18/20 08:01 Last Admin: 07/14/20 08:35 Dose: 6 mg Documented by: Dextrose (D50w Syringe) 0 gm IV X1 PRN; Protocol PRN Reason: Hypoglycemia Famotidine (Pepcid) 20 mg GT DAILY [facility] Glucagon () 1 mg IM .X1 PRN PRN Reason: Hypoglycemia Guaifenesin (Robitussin) 10 ml GT Q6 SUNNY Last Admin: 07/15/20 06:12 Dose: 10 ml Documented by: Sodium Chloride () 250 mls @ 15 mls/hr IV .[id number] PRN PRN Reason: Additional IVPB Infusion Last Infusion: 07/15/20 06:12 Dose: 0 mls/hr Documented by: Remdesivir (Investigational) (100 mg/ Sodium Chloride) 250 mls @ 125 mls/hr IV DAILY [facility]; Protocol Stop: 07/15/20 11:59 Last Infusion: 07/14/20 15:02 Dose: Infused Documented by: Piperacillin Sod/Tazobactam (Sod 3.375 gm/ Sodium Chloride) 50 mls @ 12.5 mls/hr IV Q8 [facility] Last Admin: 07/15/20 06:12 Dose: 12.5 mls/hr Documented by: Propofol (Diprivan) 1,000 mg in 100 mls @ 7.518 mls/hr CONT INF .Q12H SUNNY; Protocol Last Titration: 07/15/20 04:00 Dose: Infused Documented by: Fentanyl Citrate 1,000 mcg/ (Sodium Chloride) 100 mls @ 5 mls/hr CONT INF .Q20H SUNNY; Protocol Last Titration: 07/15/20 07:00 Dose: 125 mcg/hr, 12.5 mls/hr Documented by: Norepinephrine Bitartrate 8 mg (/ Sodium Chloride) 250 mls @ 9.375 mls/hr CONT INF .[id number] SUNNY; Protocol Last Titration: 07/15/20 06:00 Dose: 30 mcg/min, 56.3 mls/hr Documented by: Enteral Nutritional Formula (Vital Af 1.2 Wong Liquid) 1,000 mls @ 65 mls/hr GT .[id number] SUNNY Last Admin: 07/15/20 04:38 Dose: 65 mls/hr Documented by: Heparin Sodium/Sodium Chloride () 25,000 unit in 250 mls @ 16 mls/hr IV .[id number] SUNNY; Protocol Last Infusion: 07/15/20 05:00 Dose: 800 units/hr, 8 mls/hr Documented by: Vasopressin 20 units/ Sodium (Chloride) 25 mls @ 3 mls/hr IV .[id number] SUNNY Last Admin: 07/15/20 06:43 Dose: 0.04 units/min, 3 mls/hr Documented by: Insulin Glargine (Lantus (Bkc)) 65 units SC BID SUNNY Insulin Human Lispro (Humalog Kwikpen (Bk)) 0 unit SC Q6 SUNNY; Protocol Last Admin: 07/15/20 06:16 Dose: 12 u Documented by: Nystatin (Mycostatin Powder) 1 applic TOPICAL 4X/DAY PRN PRN; Protocol PRN Reason: SKIN Last Admin: 07/14/20 05:14 Dose: 1 applicatio Documented by: Ondansetron HCl (Zofran) 4 mg IV Q6H PRN PRN PRN Reason: NAUSEA/VOMITING Last Admin: 07/11/20 11:13 Dose: 4 mg Documented by: Senna/Docusate Sodium (Senokot-S, Brittney-Colace) 2 tablet GT BID SUNNY Last Admin: 07/15/20 08:25 Dose: Not Given Documented by: Sertraline HCl (Zoloft) 100 mg GT DAILY SUNNY Last Admin: 07/14/20 08:34 Dose: 100 mg Documented by: Sodium Chloride () 10 - 40 ml IV UD PRN PRN Reason: SALINE FLUSH Last Admin: 07/14/20 18:13 Dose: 20 ml Documented by: Sodium Chloride (Rotan Nasal [place]) 2 spray NASAL Q2H PRN PRN Reason: NASAL DRYNESS Last Admin: 07/09/20 21:40 Dose: 2 spray Documented by: Medical Necessity - Tobacco Use Smoking Status: Never smoker Assessment/Plan All Active Problems (Last Reviewed 01/22/20 @ 15:[address] Philipp Ybarra MD) Pneumonia due to COVID-19 virus (Acute) This is a 69 years old female patient presented to the emergency room because of weakness, fatigue, mild shortness of breath and she was found to have acute bilateral COVID-19 pneumonia complicated by acute hypoxic respiratory failure due to ARDS. #1 acute hypoxic respiratory failure/ARDS: Secondary to COVID-19 pneumonia, remained mechanical ventilation. Still requiring requiring high PEEP and FiO2. She is on IV fentanyl drip as well as propofol for sedation. She is on IV Levophed and vasopressin drip for the septic shock. She has been afebrile but WBC is very high, trending up. She is on IV Decadron, IV Zosyn and IV remdesivir as well as IV heparin drip. Critical care on the case. No improvement in terms of oxygenation, kidney function is worsening. Plan to continue same treatment. #2 acute bilateral COVID-19 pneumonia: She is on IV Decadron, IV Zosyn and IV remdesivir. She received 1 unit of convalescent plasma. WBC is trending up, it is 30,000 today. Blood culture showed no growth in 5 days. Urine culture showed no growth. Sputum culture revealed normal aspiratory william. Respiratory panel for viruses were negative. Pneumococcal and Legionella antigen were negative. Plan to continue same treatment. #3 disruptive shock: Attributed to sedatives namely propofol. She was only on IV Levophed drip, started on IV vasopressin today. Blood pressure is borderline. Possible secondary bacterial pneumonia cannot be ruled out and that is why patient is on IV Zosyn. Cultures are negative as above. Plan to continue same treatment. #4 Acute kidney injury on top of stage III chronic kidney disease/uremia: Baseline creatinine has been around 1.2 to 1.8 mg/dL. Today's creatinine is 2.65, BUN is 102. She has poor urine output. Plan for nephrology consult, patient may need hemodialysis. #5 uncontrolled type 2 diabetes mellitus: Blood sugar has been uncontrolled because of IV Decadron. It is up to 400s. Lantus increased to 65 units twice daily today. Remains on sliding scale. #6 chronic diastolic CHF/nonischemic cardiomyopathy: She is on statins. Diuretics, Coreg and lisinopril are on hold because of worsening kidney function as well as disruptive shock. #7 depression: Continue sertraline. #8 DVT prophylaxis: She is on IV heparin drip. This note was generated with [employer] dictation software. It may contain incorrect words, spelling, and punctuation that were not noted in checking the note before signing. Inpatient E&M: [id number] [facility] L3
[2020-07-15] MEDS: dexAMETHasone 4 MG Tablet 6 MG GT (09:02)
[2020-07-15] MEDS: Sertraline 100 MG Tablet GT (09:02)
[2020-07-15] MEDS: Chlorhexidine 15 ML PO ×2 (09:03→19:59)
[2020-07-15] MEDS: Famotidine 20 MG Tablet GT (09:03)
[2020-07-15 09:21] LABS: Bedside Glucose 352 mg/dL (70-110)
--- NOTE | 2020-07-15 09:51 | CASEMGMT ---
RN CM Note: participated in ICU rounds. Pt remains on Decadron, Remdesivir, Fentanyl gtt, Zosyn. ID on case, WBC today 30.3 from 21.6. Remains intubated, on mechanical ventilation with 70% O2. Tmax past 24 hours 99.5. DC PLANNING: deferred today. DIETER Claire will follow for possible SNF placement. Charito PARISN RN ACM
--- NOTE | 2020-07-15 10:10 | CASEMGMT ---
SW contacted patient's sister. Introduced self and role at [facility]. SW told her that at this time it is too early to start aggressive discharge planning. SW told her there are several nursing homes down in her area. DIETER told her that SW did talk with a handful and they would not take positive patients. She said she did not think patient would go to a shelter when she was still positive. SW told her that it is possible as some patient's test positive for awhile. DIETER told her there are SNF's that take positive patients. DIETER again explained that right now it is too early to tell. She agrees it is too early as patient seems to be up and down. She does not want to proceed with any other nursing homes right now as she really would like [facility]. DIETER told her that is fine and SW will continue to follow and help her with d/c planning. She asked if [facility] had HCPOA papers. DIETER told her we do and she is the Healthcare Power of Manager Of Sales. She thanked DIETER for checking. She is aware SW will not be calling her every day, but will check in with her when we are a little closer to d/c. She verbalized understanding. Plan: Likely SNF however, it is too early to make decisions and send referrals as patient is not ready. At this time we do not know if she will need a facility that will take positives or if she will test negative when we are closer to d/c. Ness HERMAN MSW
--- NOTE | 2020-07-15 10:11 | PCM.PN.ID ---
Subjective: No fever, on 2 pressors, lethargic on vent - Physical Exam Vitals/I&O's: Vital Signs Temp Pulse Resp BP Pulse Ox 99.2 F H 98 18 99/65 94 07/15/20 06:00 07/15/20 08:00 07/15/20 06:38 07/15/20 06:00 07/15/20 06:38 Oxygen Flow Rate (L/min) 10 Oxygen Delivery Method Mechanical Ventilator Weight: 125.3 kg Body Mass Index (BMI) 48.9 Finger Stick Blood Glucose 88 Intake and Output for Last 24 Hours 07/13/20 07/14/20 07/15/20 23:59 23:59 23:59 Intake Total 1860.77 / 2021.87 3425.37 / 3536.75 1750.73 / 1750.73 Output Total 1130 / 1430 925 / 925 325 / 325 Balance 730.77 / 591.87 2500.37 / 2611.75 1425.73 / 1425.73 General: Lethargic Lungs: Diminished Cardiovascular: Irregular Rate, Tachycardic Abdomen: Soft, Non Tender, Non-Distended Skin: No rashes Microbiology Past 72 Hours 07/15/20 06:40 Stool C. difficile DNA Amplification - Final 07/12/20 09:20 Sputum, Induced/Lukens Gram Stain - Final 07/12/20 09:20 Sputum, Induced/Lukens Respiratory Culture - Final 07/08/20 22:40 Blood Culture (Wb) - Left Forearm Blood Culture - Final No growth in 5 days. 07/08/20 22:30 Blood Culture (Wb) - Right Hand Blood Culture - Final No growth in 5 days. 07/10/20 13:45 Sputum, Expectorated/Coughed Gram Stain - Final 07/10/20 13:45 Sputum, Expectorated/Coughed Respiratory Culture - Final Culture exhibits no growth. Laboratory Results 07/14/20 08:50: APTT Cancelled 07/14/20 09:45: POC Glucose 345 H 07/14/20 09:55: APTT 90.6 H* 07/14/20 13:19: POC Glucose 393 H 07/14/20 16:30: APTT 143.5 H* 07/14/20 17:56: POC Glucose 347 H 07/15/20 00:04: POC Glucose 418 H 07/15/20 04:05: APTT 88.7 H 07/15/20 04:05: WBC 30.3 H*, RBC 4.42, Hgb 11.7 L, Hct 37.8, MCV 85.5, MCH 26.5 L, MCHC 31.0 L, RDW Std Deviation 50.7 H, RDW Coeff of Rahel 16.1 H, Plt Count 453 H, MPV 12.8 H, Neut % (Auto) Not Reportable, Absolute Neuts (auto) 21.5 H, Absolute Lymphs (auto) 1.52, Total Counted 100, Neutrophils % (Manual) 71 H, Lymphocytes % (Manual) 5 L, Monocytes % (Manual) 23 H, Metamyelocytes % 1, Diff Path Review March, Platelet Estimate SLT, RBC Morphology NORM C+C 07/15/20 04:05: Sodium 135 L, Potassium 4.3, Chloride 103, Carbon Dioxide 21.0, Anion Gap 11, BUN 102 H*, Creatinine 2.65 H, Estim Creat Clear Calc 15.40, Est GFR (MDRD) Af Amer 23 L, Est GFR (MDRD) Non-Af 19 L, BUN/Creatinine Ratio 38.5 H, Glucose 360 H, Calcium 7.1 L, Phosphorus 4.6, Magnesium 2.0 07/15/20 06:10: POC Glucose 352 H Current Medications Acetaminophen (Tylenol Liquid) 650 mg GT Q6H PRN PRN PRN Reason: Pain Score 1-10/Temp > 100.7 F Last Admin: 07/12/20 11:36 Dose: 650 mg Documented by: Albuterol Sulfate (Proair Hfa (Sp) Surgery/Vent Pts) 1 puff INHALATION Q2H PRN PRN PRN Reason: SHORTNESS OF BREATH/WHEEZING Atorvastatin Calcium (Lipitor) 20 mg GT QHS [facility] Last Admin: 07/14/20 21:26 Dose: 20 mg Documented by: Chlorhexidine Gluconate () 15 ml PO BID [facility] Last Admin: 07/15/20 09:03 Dose: 15 ml Documented by: Dexamethasone (Decadron) 6 mg GT DAILY@0800 [facility] Stop: 07/18/20 08:01 Last Admin: 07/15/20 09:02 Dose: 6 mg Documented by: Dextrose (D50w Syringe) 0 gm IV X1 PRN; Protocol PRN Reason: Hypoglycemia Famotidine (Pepcid) 20 mg GT DAILY [facility] Last Admin: 07/15/20 09:03 Dose: 20 mg Documented by: Glucagon () 1 mg IM .X1 PRN PRN Reason: Hypoglycemia Guaifenesin (Robitussin) 10 ml GT Q6 [facility] Last Admin: 07/15/20 06:12 Dose: 10 ml Documented by: Sodium Chloride () 250 mls @ 15 mls/hr IV .[id number] PRN PRN Reason: Additional IVPB Infusion Last Infusion: 07/15/20 06:12 Dose: 0 mls/hr Documented by: Remdesivir (Investigational) (100 mg/ Sodium Chloride) 250 mls @ 125 mls/hr IV DAILY [facility]; Protocol Stop: 07/15/20 11:59 Last Infusion: 07/14/20 15:02 Dose: Infused Documented by: Propofol (Diprivan) 1,000 mg in 100 mls @ 7.518 mls/hr CONT INF .Q12H [facility]; Protocol Last Titration: 07/15/20 04:00 Dose: Infused Documented by: Fentanyl Citrate 1,000 mcg/ (Sodium Chloride) 100 mls @ 5 mls/hr CONT INF .Q20H [facility]; Protocol Last Titration: 07/15/20 07:00 Dose: 125 mcg/hr, 12.5 mls/hr Documented by: Norepinephrine Bitartrate 8 mg (/ Sodium Chloride) 250 mls @ 9.375 mls/hr CONT INF .[id number] [facility]; Protocol Last Titration: 07/15/20 06:00 Dose: 30 mcg/min, 56.3 mls/hr Documented by: Enteral Nutritional Formula (Vital Af 1.2 Wong Liquid) 1,000 mls @ 65 mls/hr GT .[id number] [facility] Last Admin: 07/15/20 04:38 Dose: 65 mls/hr Documented by: Heparin Sodium/Sodium Chloride () 25,000 unit in 250 mls @ 16 mls/hr IV .[id number] [facility]; Protocol Last Infusion: 07/15/20 05:00 Dose: 800 units/hr, 8 mls/hr Documented by: Vasopressin 20 units/ Sodium (Chloride) 25 mls @ 3 mls/hr IV .Q8H20M [facility] Last Admin: 07/15/20 06:43 Dose: 0.04 units/min, 3 mls/hr Documented by: Piperacillin Sod/Tazobactam (Sod 3.375 gm/ Sodium Chloride) 50 mls @ 12.5 mls/hr IV Q12 [facility] Insulin Glargine (Lantus (Bk)) 65 units SC BID [facility] Last Admin: 07/15/20 09:03 Dose: 65 u Documented by: Insulin Human Lispro (Humalog Kwikpen ([facility])) 0 unit SC Q6 [facility]; Protocol Last Admin: 07/15/20 06:16 Dose: 12 u Documented by: Nystatin (Mycostatin Powder) 1 applic TOPICAL 4X/DAY PRN PRN; Protocol PRN Reason: SKIN Last Admin: 07/14/20 05:14 Dose: 1 applicatio Documented by: Ondansetron HCl (Zofran) 4 mg IV Q6H PRN PRN PRN Reason: NAUSEA/VOMITING Last Admin: 07/11/20 11:13 Dose: 4 mg Documented by: Senna/Docusate Sodium (Senokot-S, Brittney-Colace) 2 tablet GT BID [facility] Last Admin: 07/15/20 08:25 Dose: Not Given Documented by: Sertraline HCl (Zoloft) 100 mg GT DAILY [facility] Last Admin: 07/15/20 09:02 Dose: 100 mg Documented by: Sodium Chloride () 10 - 40 ml IV UD PRN PRN Reason: SALINE FLUSH Last Admin: 07/14/20 18:13 Dose: 20 ml Documented by: Sodium Chloride ([place] Nasal [place]) 2 spray NASAL Q2H PRN PRN Reason: NASAL DRYNESS Last Admin: 07/09/20 21:40 Dose: 2 spray Documented by: Medical Necessity - Tobacco Use Smoking Status: Never smoker Route of nutrition/ use of supplements: [] Nutritional Intake: [] IV Site: [] Hightower Catheter: [] - Assessment/Plan Antibiotics: [] Assessment/Plan: [] covid - receiving remdesivir and dexamethasone, also was given plasma. On zosyn, cxs remain neg so far. Rising wbc. Worsening ALICIA. No fever. Adjusting dose of zosyn to q12h. On 2 pressors. Cdiff was neg. Will follow.
[2020-07-15] MEDS: 0.9% Saline Lock 10 ML Syringe IV (11:39)
[2020-07-15 11:55] LABS: Bedside Glucose 253 mg/dL (70-110)
[2020-07-15 12:58] LABS: Partial Thromboplast Time 102.8 Seconds (24.1-36.2)
--- NOTE | 2020-07-15 13:18 | PCM.CONS.R ---
Problem List (1) ALICIA (acute kidney injury) Status: Acute Consultation - Renal 07/15/20 PCP/ Referring MD: Requesting physician: [] Primary care physician: STANTON MAHONEY Reason for Consultation:: ALICIA - History of Present Illness History of Present Illness: The patient is a 69 year old F with complaints of respiratory failure. Diagnosed with Covid pneumonia. Intubated. developed progressively worsening renal failure hence nephrology is being consulted. Was treated with remdesivir, convalescent plasma and Decadron. Continues to get worse. As of this morning she is on 3 pressors. Still has urine output. BUN is significantly high. Review of systems cannot be obtained - Allergies Allergies: Allergies No Known Allergies Allergy (Verified 01/22/20 15:12) - Current Medications Current Medications: Current Medications Acetaminophen (Tylenol Liquid) 650 mg GT Q6H PRN PRN PRN Reason: Pain Score 1-10/Temp > 100.7 F Last Admin: 07/12/20 11:36 Dose: 650 mg Documented by: Albuterol Sulfate (Proair Hfa (Sp) Surgery/Vent Pts) 1 puff INHALATION Q2H PRN PRN PRN Reason: SHORTNESS OF BREATH/WHEEZING Atorvastatin Calcium (Lipitor) 20 mg GT QHS [facility] Last Admin: 07/14/20 21:26 Dose: 20 mg Documented by: Chlorhexidine Gluconate () 15 ml PO BID [facility] Last Admin: 07/15/20 09:03 Dose: 15 ml Documented by: Dexamethasone (Decadron) 6 mg GT DAILY@0800 [facility] Stop: 07/18/20 08:01 Last Admin: 07/15/20 09:02 Dose: 6 mg Documented by: Dextrose (D50w Syringe) 0 gm IV X1 PRN; Protocol PRN Reason: Hypoglycemia Famotidine (Pepcid) 20 mg GT DAILY [facility] Last Admin: 07/15/20 09:03 Dose: 20 mg Documented by: Glucagon () 1 mg IM .X1 PRN PRN Reason: Hypoglycemia Guaifenesin (Robitussin) 10 ml GT Q6 [facility] Last Admin: 07/15/20 11:39 Dose: 10 ml Documented by: Sodium Chloride () 250 mls @ 15 mls/hr IV .[id number] PRN PRN Reason: Additional IVPB Infusion Last Infusion: 07/15/20 10:45 Dose: 0 mls/hr Documented by: Propofol (Diprivan) 1,000 mg in 100 mls @ 7.518 mls/hr CONT INF .Q12H [facility]; Protocol Last Admin: 07/15/20 11:57 Dose: Not Given Documented by: Fentanyl Citrate 1,000 mcg/ (Sodium Chloride) 100 mls @ 5 mls/hr CONT INF .Q20H [facility]; Protocol Last Titration: 07/15/20 12:00 Dose: 125 mcg/hr, 12.5 mls/hr Documented by: Norepinephrine Bitartrate 8 mg (/ Sodium Chloride) 250 mls @ 9.375 mls/hr CONT INF .[id number] [facility]; Protocol Last Admin: 07/15/20 13:00 Dose: 40 mcg/min, 75 mls/hr Documented by: Enteral Nutritional Formula (Vital Af 1.2 Wong Liquid) 1,000 mls @ 65 mls/hr GT .[id number] [facility] Last Admin: 07/15/20 04:38 Dose: 65 mls/hr Documented by: Heparin Sodium/Sodium Chloride () 25,000 unit in 250 mls @ 16 mls/hr IV .[id number] [facility]; Protocol Last Infusion: 07/15/20 13:00 Dose: 0 units/hr, 0 mls/hr Documented by: Vasopressin 20 units/ Sodium (Chloride) 25 mls @ 3 mls/hr IV .Q8H20M [facility] Last Admin: 07/15/20 11:45 Dose: 0.04 units/min, 3 mls/hr Documented by: Piperacillin Sod/Tazobactam (Sod 3.375 gm/ Sodium Chloride) 50 mls @ 12.5 mls/hr IV Q12 [facility] Phenylephrine HCl 10 mg/ (Sodium Chloride) 250 mls @ 15 mls/hr CONT INF .[id number] [facility]; Protocol Last Titration: 07/15/20 13:00 Dose: 30 mcg/min, 45 mls/hr Documented by: Insulin Glargine (Lantus (Bk)) 65 units SC BID [facility] Last Admin: 07/15/20 09:03 Dose: 65 u Documented by: Insulin Human Lispro (Humalog Kwikpen ([facility])) 0 unit SC Q6 [facility]; Protocol Last Admin: 07/15/20 11:39 Dose: 6 u Documented by: Nystatin (Mycostatin Powder) 1 applic TOPICAL 4X/DAY PRN PRN; Protocol PRN Reason: SKIN Last Admin: 07/14/20 05:14 Dose: 1 applicatio Documented by: Ondansetron HCl (Zofran) 4 mg IV Q6H PRN PRN PRN Reason: NAUSEA/VOMITING Last Admin: 07/11/20 11:13 Dose: 4 mg Documented by: Senna/Docusate Sodium (Senokot-S, Brittney-Colace) 2 tablet GT BID [facility] Last Admin: 07/15/20 08:25 Dose: Not Given Documented by: Sertraline HCl (Zoloft) 100 mg GT DAILY [facility] Last Admin: 07/15/20 09:02 Dose: 100 mg Documented by: Sodium Chloride () 10 - 40 ml IV UD PRN PRN Reason: SALINE FLUSH Last Admin: 07/15/20 11:39 Dose: 20 ml Documented by: Sodium Chloride ([place] Nasal [place]) 2 spray NASAL Q2H PRN PRN Reason: NASAL DRYNESS Last Admin: 07/09/20 21:40 Dose: 2 spray Documented by: - Past Medical History Past Medical History (Chronic Problems): Chronic Problems (Last Reviewed 01/22/20 @ 15:[address] Philipp Ybarra MD) Chronic systolic heart failure (Chronic) Rectal bleeding (Chronic) IDDM (insulin dependent diabetes mellitus) (Chronic) Non-ischemic cardiomyopathy (Chronic) Essential (primary) hypertension (Chronic) History of implantable cardiac defibrillator (ICD) (Chronic) - Past Surgical History Surgical History: - - ICD Placement - Social History Smoking Status: Never smoker - Family History Maternal Family History: Family History (Last Reviewed 01/22/20 @ 15:[address] Philipp Ybarra MD) Father CAD (coronary artery disease) History Items: Dementia Paternal Family History: Family History (Last Reviewed 01/22/20 @ 15:[address] Philipp Ybarra MD) Father CAD (coronary artery disease) History Items: Cancer - lung Review of Systems Unable to obtain accurate/complete ROS d/t: due to intubated status Patient Problems: Active and Suspected Problems (Last Reviewed 01/22/20 @ 15:[address] Philipp Ybarra MD) ALICIA (acute kidney injury) (Acute) - Physical Exam Vitals/I&O's: Vital Signs Temp Pulse Resp BP Pulse Ox 99.5 F H 92 18 80/44 L 99 07/15/20 12:00 07/15/20 13:00 07/15/20 13:00 07/15/20 13:00 07/15/20 13:00 Oxygen Flow Rate (L/min) 10 Oxygen Delivery Method Mechanical Ventilator Weight: 125.3 kg Body Mass Index (BMI) 48.9 Finger Stick Blood Glucose 88 Intake and Output for Last 24 Hours 07/13/20 07/14/20 07/15/20 23:59 23:59 23:59 Intake Total 1860.77 / 2021.87 3425.37 / 3536.75 2911.36 / 2911.36 Output Total 1130 / 1430 925 / 925 355 / 355 Balance 730.77 / 591.87 2500.37 / 2611.75 2556.36 / 2556.36 Comment: exam minimized due to covid. intubated. vent settings noted. eileen. Microbiology Past 72 Hours 07/15/20 06:40 Stool C. difficile DNA Amplification - Final 07/12/20 09:20 Sputum, Induced/Lukens Gram Stain - Final 07/12/20 09:20 Sputum, Induced/Lukens Respiratory Culture - Final 07/08/20 22:40 Blood Culture (Wb) - Left Forearm Blood Culture - Final No growth in 5 days. 07/08/20 22:30 Blood Culture (Wb) - Right Hand Blood Culture - Final No growth in 5 days. 07/10/20 13:45 Sputum, Expectorated/Coughed Gram Stain - Final 07/10/20 13:45 Sputum, Expectorated/Coughed Respiratory Culture - Final Culture exhibits no growth. Laboratory Results 07/14/20 13:19: POC Glucose 393 H 07/14/20 16:30: APTT 143.5 H* 07/14/20 17:56: POC Glucose 347 H 07/15/20 00:04: POC Glucose 418 H 07/15/20 04:05: APTT 88.7 H 07/15/20 04:05: WBC 30.3 H*, RBC 4.42, Hgb 11.7 L, Hct 37.8, MCV 85.5, MCH 26.5 L, MCHC 31.0 L, RDW Std Deviation 50.7 H, RDW Coeff of Rahel 16.1 H, Plt Count 453 H, MPV 12.8 H, Neut % (Auto) Not Reportable, Absolute Neuts (auto) 21.5 H, Absolute Lymphs (auto) 1.52, Total Counted 100, Neutrophils % (Manual) 71 H, Lymphocytes % (Manual) 5 L, Monocytes % (Manual) 23 H, Metamyelocytes % 1, Diff Path Review March, Platelet Estimate SLT, RBC Morphology NORM C+C 07/15/20 04:05: Sodium 135 L, Potassium 4.3, Chloride 103, Carbon Dioxide 21.0, Anion Gap 11, BUN 102 H*, Creatinine 2.65 H, Estim Creat Clear Calc 15.40, Est GFR (MDRD) Af Amer 23 L, Est GFR (MDRD) Non-Af 19 L, BUN/Creatinine Ratio 38.5 H, Glucose 360 H, Calcium 7.1 L, Phosphorus 4.6, Magnesium 2.0 07/15/20 06:10: POC Glucose 352 H 07/15/20 11:32: POC Glucose 253 H 07/15/20 11:35: APTT 102.8 H* 07/15/20 11:35: Procalcitonin Pending Current Medications Acetaminophen (Tylenol Liquid) 650 mg GT Q6H PRN PRN PRN Reason: Pain Score 1-10/Temp > 100.7 F Last Admin: 07/12/20 11:36 Dose: 650 mg Documented by: Albuterol Sulfate (Proair Hfa (Sp) Surgery/Vent Pts) 1 puff INHALATION Q2H PRN PRN PRN Reason: SHORTNESS OF BREATH/WHEEZING Atorvastatin Calcium (Lipitor) 20 mg GT QHS [facility] Last Admin: 07/14/20 21:26 Dose: 20 mg Documented by: Chlorhexidine Gluconate () 15 ml PO BID [facility] Last Admin: 07/15/20 09:03 Dose: 15 ml Documented by: Dexamethasone (Decadron) 6 mg GT DAILY@0800 [facility] Stop: 07/18/20 08:01 Last Admin: 07/15/20 09:02 Dose: 6 mg Documented by: Dextrose (D50w Syringe) 0 gm IV X1 PRN; Protocol PRN Reason: Hypoglycemia Famotidine (Pepcid) 20 mg GT DAILY [facility] Last Admin: 07/15/20 09:03 Dose: 20 mg Documented by: Glucagon () 1 mg IM .X1 PRN PRN Reason: Hypoglycemia Guaifenesin (Robitussin) 10 ml GT Q6 [facility] Last Admin: 07/15/20 11:39 Dose: 10 ml Documented by: Sodium Chloride () 250 mls @ 15 mls/hr IV .[id number] PRN PRN Reason: Additional IVPB Infusion Last Infusion: 07/15/20 10:45 Dose: 0 mls/hr Documented by: Propofol (Diprivan) 1,000 mg in 100 mls @ 7.518 mls/hr CONT INF .Q12H [facility]; Protocol Last Admin: 07/15/20 11:57 Dose: Not Given Documented by: Fentanyl Citrate 1,000 mcg/ (Sodium Chloride) 100 mls @ 5 mls/hr CONT INF .Q20H [facility]; Protocol Last Titration: 07/15/20 12:00 Dose: 125 mcg/hr, 12.5 mls/hr Documented by: Norepinephrine Bitartrate 8 mg (/ Sodium Chloride) 250 mls @ 9.375 mls/hr CONT INF .[id number] [facility]; Protocol Last Admin: 07/15/20 13:00 Dose: 40 mcg/min, 75 mls/hr Documented by: Enteral Nutritional Formula (Vital Af 1.2 Wong Liquid) 1,000 mls @ 65 mls/hr GT .[id number] [facility] Last Admin: 07/15/20 04:38 Dose: 65 mls/hr Documented by: Heparin Sodium/Sodium Chloride () 25,000 unit in 250 mls @ 16 mls/hr IV .[id number] [facility]; Protocol Last Infusion: 07/15/20 13:00 Dose: 0 units/hr, 0 mls/hr Documented by: Vasopressin 20 units/ Sodium (Chloride) 25 mls @ 3 mls/hr IV .Q8H20M [facility] Last Admin: 07/15/20 11:45 Dose: 0.04 units/min, 3 mls/hr Documented by: Piperacillin Sod/Tazobactam (Sod 3.375 gm/ Sodium Chloride) 50 mls @ 12.5 mls/hr IV Q12 [facility] Phenylephrine HCl 10 mg/ (Sodium Chloride) 250 mls @ 15 mls/hr CONT INF .[id number] [facility]; Protocol Last Titration: 07/15/20 13:00 Dose: 30 mcg/min, 45 mls/hr Documented by: Insulin Glargine (Lantus ([facility])) 65 units SC BID [facility] Last Admin: 07/15/20 09:03 Dose: 65 u Documented by: Insulin Human Lispro (Humalog Kwikpen ([facility])) 0 unit SC Q6 [facility]; Protocol Last Admin: 07/15/20 11:39 Dose: 6 u Documented by: Nystatin (Mycostatin Powder) 1 applic TOPICAL 4X/DAY PRN PRN; Protocol PRN Reason: SKIN Last Admin: 07/14/20 05:14 Dose: 1 applicatio Documented by: Ondansetron HCl (Zofran) 4 mg IV Q6H PRN PRN PRN Reason: NAUSEA/VOMITING Last Admin: 07/11/20 11:13 Dose: 4 mg Documented by: Senna/Docusate Sodium (Senokot-S, Brittney-Colace) 2 tablet GT BID [facility] Last Admin: 07/15/20 08:25 Dose: Not Given Documented by: Sertraline HCl (Zoloft) 100 mg GT DAILY [facility] Last Admin: 07/15/20 09:02 Dose: 100 mg Documented by: Sodium Chloride () 10 - 40 ml IV UD PRN PRN Reason: SALINE FLUSH Last Admin: 07/15/20 11:39 Dose: 20 ml Documented by: Sodium Chloride ([place] Nasal [place]) 2 spray NASAL Q2H PRN PRN Reason: NASAL DRYNESS Last Admin: 07/09/20 21:40 Dose: 2 spray Documented by: Assessment/Plan All Active Problems (Last Reviewed 01/22/20 @ 15:[address] Philipp Ybarra MD) ALICIA (acute kidney injury) (Acute) Pneumonia due to COVID-19 virus (Acute) Acute renal failure Covid pneumonia severe Respiratory failure, currently on ventilator Discussed with Dr. Jameson. She is currently on 3 pressors. Reviewed chest x-ray. High FiO2 requirements likely due to infiltrates rather than fluid. No hyperkalemia or acidosis. Will be somewhat difficult to dialyze. We will follow
[2020-07-15 13:55] LABS: Procalcitonin 1.24 ng/mL (0.00-0.09)
[2020-07-15 14:07] LABS: Pathologist Review Reviewed
--- NOTE | 2020-07-15 14:22 | EKG12_ITS ---
Test Reason : ARRYTHMIA Blood Pressure : / mmHG Vent. Rate : 056 BPM Atrial Rate : 056 BPM P-R Int : 138 ms QRS Dur : 078 ms QT Int : 464 ms P-R-T Axes : 023 -22 024 degrees QTc Int : 447 ms Sinus bradycardia Leftward axis Poor R wave progression Nonspecific T-Wave Abnormality Inferior infarct , age undetermined Abnormal ECG Confirmed by OLIVIA VELEZ, LINDSAY ([id number]), material expeditor MILDRED AC ([id number]) on 07/17/2020 11:38:31 AM Referred By: QUE Confirmed By:LINDSAY BAKER MD
--- NOTE | 2020-07-15 14:35 | EKG12_ITS ---
Test Reason : RHYTHUM CHECK Blood Pressure : / mmHG Vent. Rate : 100 BPM Atrial Rate : 100 BPM P-R Int : 116 ms QRS Dur : 074 ms QT Int : 342 ms P-R-T Axes : 040 -05 048 degrees QTc Int : 441 ms Sinus rhythm with Premature atrial complexes Inferior infarct , age undetermined Abnormal ECG When compared with ECG of 14-JUL-2020 11:00, MANUAL COMPARISON REQUIRED, DATA IS UNCONFIRMED Confirmed by TISH VELEZ, HALIE ([id number]), online content editor SERGO HERNANDEZ ([id number]) on 07/28/2020 2:47:24 PM Referred By: JOBY GREY Confirmed By:GRAHAM WINSTON MD
[2020-07-15] MEDS: Norepinephrine 16 mg/250 mL 0.9% NS 32.8 MG CONT INF (16:15)
[2020-07-15] MEDS: Phenylephrine 40 mg/250 mL 0.9% NS 26.3 MG CONT INF (16:15)
[2020-07-15 17:51] LABS: Bedside Glucose 307 mg/dL (70-110)
[2020-07-15] MEDS: Atorvastatin Calcium 20 MG Tablet GT (19:58)
[2020-07-15 21:15] LABS: Partial Thromboplast Time 55.8 Seconds (24.1-36.2)
[2020-07-15] MEDS: Phenylephrine 40 mg/250 mL 0.9% NS 48.8 MG CONT INF (21:43)
[2020-07-16] VITALS (32 sets, daily range): BP systolic 69–109; BP diastolic 24–65; PULSE 98–137; RESP 12–28; TEMP 35.9–39.8; O2SAT 91–100
[2020-07-16] MEDS: Vital AF 1.2 Cal Liquid 1,000 ML 65 ML GT ×2 (00:02→14:15)
[2020-07-16] MEDS: Norepinephrine 16 mg/250 mL 0.9% NS 28.1 MG CONT INF ×3 (01:30→19:02)
[2020-07-16] MEDS: guaiFENesin 10 ML UDC (200MG/10ML) GT ×4 (01:58→16:50)
[2020-07-16] MEDS: Insulin Lispro 100 UNIT/ML INSULN.PEN SC ×4 (01:59→16:46)
[2020-07-16] MEDS: Acetaminophen 650 MG/20 ML UDC GT ×3 (02:00→18:11)
[2020-07-16] MEDS: Nystatin Powder 15gm Bottle 1 APPLIC TOPICAL (02:29)
[2020-07-16 02:46] LABS: Bedside Glucose 378 mg/dL (70-110)
[2020-07-16] MEDS: Phenylephrine 40 mg/250 mL 0.9% NS 48.8 MG CONT INF ×3 (02:52→19:45)
[2020-07-16 04:08] LABS: Hematocrit 29.3 % (37-47); Hemoglobin 9.3 g/dL (12.0-15.0); Mean Corp Hgb Conc 31.7 g/dL (32-36); Mean Corpuscular Hgb 27.1 pg (27.0-32.0); Mean Corpuscular Volume 85.4 fL (81-99); POSITIVE COUNT YES; POSITIVE DIFFERENTIAL YES; POSITIVE MORPHOLOGY YES; Platelet Count 338 K/mm3 (150-450); RBC Distribution Width CV 16.4 % (11.6-14.6); RBC Distribution Width SD 50.4 fl (35.1-43.9); Red Blood Count 3.43 M/mm3 (4.2-5.4)
[2020-07-16 04:12] LABS: Differential Indicated MANUAL DIFF
[2020-07-16 04:17] LABS: White Blood Count 38.9 K/mm3 (4.4-11.0)
[2020-07-16 04:19] LABS: Partial Thromboplast Time 60.4 Seconds (24.1-36.2)
[2020-07-16 04:26] LABS: Anion Gap 12 (5-15); BUN 116 mg/dL (7-18); BUN/Creat Ratio 35.7 RATIO (10-20); Chloride 107 mmol/L (98-107); Creatinine, Serum 3.25 mg/dL (0.55-1.02); EST Glomerular Filtration Rate 15 mL/min (>60); Est Glom Filt Rate - Afr Amer 18 mL/min (>60); Estimated Creatinine Clearance 12.56 ml/min; Glucose 381 mg/dL (74-106); Potassium 4.9 mmol/L (3.5-5.1); Sodium Level 137 mmol/L (136-145)
[2020-07-16 04:32] LABS: Total Cells Counted 100 (MANUAL DIFF)
[2020-07-16 04:40] LABS: Lymphocyte 3 % (19-41); Metamyelocyte 2 % (0-1); Myelocyte 5 (0-0); Neutrophil-Band 2 % (0-5); Nucleated Red Bld Cells,Manual 2 % (0-5); Promyelocyte 1 (0-0)
[2020-07-16 04:42] LABS: Differential Comment SCANNED
[2020-07-16 04:45] LABS: Monocyte 14 % (0-10); Neutrophil-Segmented 73 % (47-70)
[2020-07-16 04:46] LABS: Absolute Neutrophil Count 29.2 X10^3/uL (2.0-7.7); Neutrophil # 29.19 X10^3/uL (2.7-7.7)
[2020-07-16 04:47] LABS: Absolute Lymphocyte Count 1.17 X10^3/uL (0.83-4.51); Lymphocyte # 1.17 X10^3/ul (4.0); Platelet Estimate ADEQUATE (ADEQ)
[2020-07-16 04:50] LABS: Microcytosis RARE; Polychromasia RARE
[2020-07-16 05:56] LABS: Bedside Glucose 336 mg/dL (70-110)
--- NOTE | 2020-07-16 08:28 | PCM.PN.INT ---
Subjective: Patient with continued decompensation overnight. Patient's blood pressures remain marginal and urine output has been falling off. Patient currently on levo fed at 30, Pete-Synephrine at 130 and vasopressin. Patient does open eyes to voice, but not following commands. Patient remains tachycardic and has started to develop higher fevers overnight despite Zosyn therapy. Patient has not been on Precedex. General: - - RASS -1. Morbidly obese. Appears ill HEENT: Atraumatic, PERRLA, EOMI, Normocephalic, - - Scleral injection without icterus Oral: Moist Mucosa, No Gingival or Mucosal Lesions/ Ulcerations, - - Crowded posterior pharynx Neck: Supple, No Nodes, Trachea Midline, - - Difficult to assess JVD secondary to body habitus Lungs: No rhonchi, No wheeze, Diminished, Rales, - - Symmetric expansion Cardiovascular: Normal S1, Normal S2, No murmurs, No rub noted, No Gallop, Tachycardic Abdomen: Bowel Sounds Present, Soft, Non Tender, Distended - Slightly, Obese Extremities: No clubbing, Cyanosis - Slightly dusky extremities, Edema - Anasarca Skin: - - No mottling noted. No change from previous. Slightly dusky extremities Musculoskeletal: No Tenderness to Palpation of Joints or Extremities Lymphatic: No Cervical, Supraclavicular, or Inguinal Adenopathy Neurological: Cranial nerves II-XII grossly intact, Neuro grossly intact Psych/Mental Status: Flat Affect Vital Signs Temp Pulse Resp BP Pulse Ox 39.2 C H 129 H 18 77/56 L 92 07/16/20 07:00 07/16/20 07:00 07/16/20 07:00 07/16/20 07:00 07/16/20 07:00 Oxygen Flow Rate (L/min) 10 Oxygen Delivery Method Mechanical Ventilator Weight: 128.4 kg Body Mass Index (BMI) 48.9 Finger Stick Blood Glucose 88 Intake and Output for Last 24 Hours 07/14/20 07/15/20 07/16/20 23:59 23:59 23:59 Intake Total 3425.37 / 3536.75 5208.39 / 5790.79 1674.47 / 1674.47 Output Total 925 / 925 640 / 700 820 / 820 Balance 2500.37 / 2611.75 4568.39 / 5090.79 854.47 / 854.47 Labs (Last 48 Hours) 07/14/20 07/14/20 07/14/20 04:25 08:50 09:45 WBC RBC Hgb Hct MCV MCH MCHC RDW Std Deviation RDW Coeff of Rahel Plt Count MPV Neut % (Auto) Absolute Neuts (auto) Absolute Lymphs (auto) Total Counted Neutrophils % (Manual) Band Neutrophils % Lymphocytes % (Manual) Monocytes % (Manual) Metamyelocytes % Myelocytes % Promyelocytes % Nucleated RBCs/100 WBC Differential Comment Diff Path Review Reviewed Platelet Estimate RBC Morphology Polychromasia Microcytosis APTT Cancelled Sodium Potassium Chloride Carbon Dioxide Anion Gap BUN Creatinine Estim Creat Clear Calc Est GFR (MDRD) Af Amer Est GFR (MDRD) Non-Af BUN/Creatinine Ratio Glucose Calcium Phosphorus Magnesium Procalcitonin POC Glucose 345 H 07/14/20 07/14/20 07/14/20 09:55 13:19 16:30 WBC RBC Hgb Hct MCV MCH MCHC RDW Std Deviation RDW Coeff of Rahel Plt Count MPV Neut % (Auto) Absolute Neuts (auto) Absolute Lymphs (auto) Total Counted Neutrophils % (Manual) Band Neutrophils % Lymphocytes % (Manual) Monocytes % (Manual) Metamyelocytes % Myelocytes % Promyelocytes % Nucleated RBCs/100 WBC Differential Comment Diff Path Review Platelet Estimate RBC Morphology Polychromasia Microcytosis APTT 90.6 H* 143.5 H* Sodium Potassium Chloride Carbon Dioxide Anion Gap BUN Creatinine Estim Creat Clear Calc Est GFR (MDRD) Af Amer Est GFR (MDRD) Non-Af BUN/Creatinine Ratio Glucose Calcium Phosphorus Magnesium Procalcitonin POC Glucose 393 H 07/14/20 07/15/20 07/15/20 17:56 00:04 04:05 WBC RBC Hgb Hct MCV MCH MCHC RDW Std Deviation RDW Coeff of Rahel Plt Count MPV Neut % (Auto) Absolute Neuts (auto) Absolute Lymphs (auto) Total Counted Neutrophils % (Manual) Band Neutrophils % Lymphocytes % (Manual) Monocytes % (Manual) Metamyelocytes % Myelocytes % Promyelocytes % Nucleated RBCs/100 WBC Differential Comment Diff Path Review Platelet Estimate RBC Morphology Polychromasia Microcytosis APTT 88.7 H Sodium Potassium Chloride Carbon Dioxide Anion Gap BUN Creatinine Estim Creat Clear Calc Est GFR (MDRD) Af Amer Est GFR (MDRD) Non-Af BUN/Creatinine Ratio Glucose Calcium Phosphorus Magnesium Procalcitonin POC Glucose 347 H 418 H 07/15/20 07/15/20 07/15/20 04:05 04:05 06:10 WBC 30.3 H* RBC 4.42 Hgb 11.7 L Hct 37.8 MCV 85.5 MCH 26.5 L MCHC 31.0 L RDW Std Deviation 50.7 H RDW Coeff of Rahel 16.1 H Plt Count 453 H MPV 12.8 H Neut % (Auto) Not Reportable Absolute Neuts (auto) 21.5 H Absolute Lymphs (auto) 1.52 Total Counted 100 Neutrophils % (Manual) 71 H Band Neutrophils % Lymphocytes % (Manual) 5 L Monocytes % (Manual) 23 H Metamyelocytes % 1 Myelocytes % Promyelocytes % Nucleated RBCs/100 WBC Differential Comment Diff Path Review Reviewed Platelet Estimate SLT RBC Morphology NORM C+C Polychromasia Microcytosis APTT Sodium 135 L Potassium 4.3 Chloride 103 Carbon Dioxide 21.0 Anion Gap 11 BUN 102 H* Creatinine 2.65 H Estim Creat Clear Calc 15.40 Est GFR (MDRD) Af Amer 23 L Est GFR (MDRD) Non-Af 19 L BUN/Creatinine Ratio 38.5 H Glucose 360 H Calcium 7.1 L Phosphorus 4.6 Magnesium 2.0 Procalcitonin POC Glucose 352 H 07/15/20 07/15/20 07/15/20 11:32 11:35 11:35 WBC RBC Hgb Hct MCV MCH MCHC RDW Std Deviation RDW Coeff of Rahel Plt Count MPV Neut % (Auto) Absolute Neuts (auto) Absolute Lymphs (auto) Total Counted Neutrophils % (Manual) Band Neutrophils % Lymphocytes % (Manual) Monocytes % (Manual) Metamyelocytes % Myelocytes % Promyelocytes % Nucleated RBCs/100 WBC Differential Comment Diff Path Review Platelet Estimate RBC Morphology Polychromasia Microcytosis APTT 102.8 H* Sodium Potassium Chloride Carbon Dioxide Anion Gap BUN Creatinine Estim Creat Clear Calc Est GFR (MDRD) Af Amer Est GFR (MDRD) Non-Af BUN/Creatinine Ratio Glucose Calcium Phosphorus Magnesium Procalcitonin 1.24 H POC Glucose 253 H 07/15/20 07/15/20 07/16/20 17:13 20:10 01:57 WBC RBC Hgb Hct MCV MCH MCHC RDW Std Deviation RDW Coeff of Rahel Plt Count MPV Neut % (Auto) Absolute Neuts (auto) Absolute Lymphs (auto) Total Counted Neutrophils % (Manual) Band Neutrophils % Lymphocytes % (Manual) Monocytes % (Manual) Metamyelocytes % Myelocytes % Promyelocytes % Nucleated RBCs/100 WBC Differential Comment Diff Path Review Platelet Estimate RBC Morphology Polychromasia Microcytosis APTT 55.8 H Sodium Potassium Chloride Carbon Dioxide Anion Gap BUN Creatinine Estim Creat Clear Calc Est GFR (MDRD) Af Amer Est GFR (MDRD) Non-Af BUN/Creatinine Ratio Glucose Calcium Phosphorus Magnesium Procalcitonin POC Glucose 307 H 378 H 07/16/20 07/16/20 07/16/20 03:35 03:35 03:35 WBC 38.9 H* RBC 3.43 L Hgb 9.3 L Hct 29.3 L MCV 85.4 MCH 27.1 MCHC 31.7 L RDW Std Deviation 50.4 H RDW Coeff of Rahel 16.4 H Plt Count 338 MPV 13.0 H Neut % (Auto) Not Reportable Absolute Neuts (auto) 29.2 H Absolute Lymphs (auto) 1.17 Total Counted 100 Neutrophils % (Manual) 73 H Band Neutrophils % 2 Lymphocytes % (Manual) 3 L Monocytes % (Manual) 14 H Metamyelocytes % 2 H Myelocytes % 5 H Promyelocytes % 1 H Nucleated RBCs/100 WBC 2 Differential Comment SCANNED Diff Path Review May foll Platelet Estimate ADEQUATE RBC Morphology Polychromasia RARE Microcytosis RARE APTT 60.4 H Sodium 137 Potassium 4.9 Chloride 107 Carbon Dioxide 18.0 L Anion Gap 12 BUN 116 H* Creatinine 3.25 H Estim Creat Clear Calc 12.56 Est GFR (MDRD) Af Amer 18 L Est GFR (MDRD) Non-Af 15 L BUN/Creatinine Ratio 35.7 H Glucose 381 H Calcium 7.0 L Phosphorus Magnesium Procalcitonin POC Glucose 07/16/20 05:32 WBC RBC Hgb Hct MCV MCH MCHC RDW Std Deviation RDW Coeff of Rahel Plt Count MPV Neut % (Auto) Absolute Neuts (auto) Absolute Lymphs (auto) Total Counted Neutrophils % (Manual) Band Neutrophils % Lymphocytes % (Manual) Monocytes % (Manual) Metamyelocytes % Myelocytes % Promyelocytes % Nucleated RBCs/100 WBC Differential Comment Diff Path Review Platelet Estimate RBC Morphology Polychromasia Microcytosis APTT Sodium Potassium Chloride Carbon Dioxide Anion Gap BUN Creatinine Estim Creat Clear Calc Est GFR (MDRD) Af Amer Est GFR (MDRD) Non-Af BUN/Creatinine Ratio Glucose Calcium Phosphorus Magnesium Procalcitonin POC Glucose 336 H Microbiology 07/15/20 06:40 Stool C. difficile DNA Amplification - Final 07/12/20 09:20 Sputum, Induced/Lukens Gram Stain - Final 07/12/20 09:20 Sputum, Induced/Lukens Respiratory Culture - Final 07/08/20 22:40 Blood Culture (Wb) - Left Forearm Blood Culture - Final No growth in 5 days. 07/08/20 22:30 Blood Culture (Wb) - Right Hand Blood Culture - Final No growth in 5 days. Medical Necessity - Tobacco Use Smoking Status: Never smoker Assessment/Plan All Active Problems (Last Reviewed 01/22/20 @ 15:[address] Philipp Ybarra MD) ALICIA (acute kidney injury) (Acute) Pneumonia due to COVID-19 virus (Acute) RECOMMENDATIONS: 1. Wean PEEP and FiO2 per orders to maintain saturations at or above 90%. 2. Complete Decadron, Remdesevir and continue heparin drip. 3. Initiate p.o. vancomycin, IV vancomycin. Panculture and await ID recommendations 4. Increase Lantus and sliding scale. Additional insulin as necessary. 5. Continue Levophed and wean to maintain a mean arterial pressure at or above 65 mmHg. 6. Continue appropriate GI prophylaxis. 7. Send C. difficile IMPRESSIONS: 1. Acute hypoxemic respiratory failure secondary to ARDS due to COVID pneumonia The patient initially presented to the hospital with symptoms concerning for coronavirus infection and subsequently tested positive on July 08. Although initially she was on very minimal supplemental oxygen, the patient decompensated from a respiratory perspective over the course of the ensuing days. Chest x-ray revealed progressive bilateral infiltrates. Although attempts were made to utilize noninvasive positive pressure ventilatory support, the patient continued to decompensate from a clinical perspective and had to be intubated on the morning of July 12. She remains on Decadron, therapeutic Lovenox and Remdesevir. The patient also received convalescent plasma on July 11. Patient with elevated blood sugars, likely secondary to Decadron, so coverage will be increased. Patient's oxygen status is improving and patient has been able to be weaned to 13 of PEEP. However, patient continues to have high fevers and worsening hemodynamic status. 2. Distributive shock Unclear etiology. Some concern for the development of superimposed bacterial infection despite Zosyn therapy. Patient now developing high fevers and worsening hypotension. Patient will be pancultured and empirically started on p.o. and IV bank. Diarrhea may be secondary to uremia or tube feeds, but given worsening clinical status, high fevers and worsening leukocytosis will start empiric p.o. Vanco until ID can evaluate 3. Acute on chronic kidney disease Likely prerenal in etiology and related to ischemic ATN in the setting #2. Continue current supportive measures. Continue vasopressor support to maintain hemodynamic stability. Continue to hold diuretics with increasing creatinine. Nephrology evaluated the patient yesterday. Patient is a poor candidate for hemodialysis given the need for pressor requirements. Will need to discuss with the patient's family moving forward as current condition may be unsustainable. Remaining electrolytes appear to be stable at this time. Will need to hold heparin drip before placement of a dialysis line. 4. History of nonischemic cardiomyopathy/heart failure with reduced ejection fraction Diuretic regimen remains on hold due to hemodynamic instability and acute kidney injury. Recommend conservative use of fluids, given underlying depressed ejection fraction. 5. Morbid obesity/diabetes mellitus/chronic kidney disease/depression/high risk for sleep disordered breathing/CODE STATUS Complicates care, management, recovery and prognosis. Continue sliding scale insulin regimen. Okay to continue tube feeds today from my perspective. The patient remains a full code, following recent conversation with the patient. Addendum 10:10 AM: Called and spoke with Sister Margarita (POA) for 10 minutes about patient's current condition. Margarita reported that the patient would want no dialysis under any circumstances. She is aware of the decompensation over the last 48 hours and the addition of antibiotics. She has agreed to transition patient to a DNR Comfort Care arrest and it is okay to continue with intubation. If patient is not improving in the next 24 to 48 hours, comfort measures may be evaluated. Margarita was asking about possible visitation, but no one in her home has tested positive for COVID-19. TIME: 55 minutes of critical care time, independent of procedures, was spent addressing the patient's acute hypoxemic respiratory failure, ARDS secondary to COVID pneumonia, distributive shock, acute on chronic kidney disease, history of congestive heart failure, review of all data and collaboration with care team. (7 AM to 8 AM) [id number] Critical care first hour
--- NOTE | 2020-07-16 08:54 | CASEMGMT ---
DIETER received a message from Pearl Riggs ([phone]) with [facility] requesting an update on patient. DIETER called Pearl back and let her know patient is in ICU and on the vent. DIETER told her the likely plan will be for her to go to a SNF near her sister around [place]. DIETER told her SW will let her know when this happens. Ness HERMAN MSW
[2020-07-16] MEDS: dexAMETHasone 4 MG Tablet 6 MG GT (08:55)
[2020-07-16] MEDS: Famotidine 20 MG Tablet GT (08:55)
--- NOTE | 2020-07-16 09:01 | PCM.RX.CS ---
Consult Pharmacy has been consulted to manage selected antiobiotic: Vancomycin Type of Consult: New start Suspected Infection: Pneumonia Labs: Sodium 137 mmol/L (136-145) 07/16/20 03:35 Potassium 4.9 mmol/L (3.5-5.1) 07/16/20 03:35 Chloride 107 mmol/L (98-107) 07/16/20 03:35 Carbon Dioxide 18.0 mmol/L (21.0-32.0) L 07/16/20 03:35 Anion Gap 12 (5-15) 07/16/20 03:35 BUN 116 mg/dL (7-18) H* 07/16/20 03:35 Creatinine 3.25 mg/dL (0.55-1.02) H 07/16/20 03:35 Est GFR (MDRD) Af Amer 18 mL/min (>60) L 07/16/20 03:35 Est GFR (MDRD) Non-Af 15 mL/min (>60) L 07/16/20 03:35 BUN/Creatinine Ratio 35.7 RATIO (10-20) H 07/16/20 03:35 Glucose 381 mg/dL (74-106) H 07/16/20 03:35 Microbiology: Microbiology 07/15/20 06:40 Stool C. difficile DNA Amplification - Final 07/12/20 09:20 Sputum, Induced/Lukens Gram Stain - Final 07/12/20 09:20 Sputum, Induced/Lukens Respiratory Culture - Final 07/08/20 22:40 Blood Culture (Wb) - Left Forearm Blood Culture - Final No growth in 5 days. 07/08/20 22:30 Blood Culture (Wb) - Right Hand Blood Culture - Final No growth in 5 days. 07/10/20 13:45 Sputum, Expectorated/Coughed Gram Stain - Final 07/10/20 13:45 Sputum, Expectorated/Coughed Respiratory Culture - Final Culture exhibits no growth. 07/08/20 19:35 Urine, Random Streptococcus pneumoniae Antigen (M - Final 07/08/20 19:35 Urine, Random Legionella Antigen - Final 07/08/20 19:10 Mucosa - Nasopharyngeal Respiratory Panel (PCR) - Final Weight used for dosin.4 kg Goal Trough: 15-20 mcg/mL Pharmacy Plan for Drug Dosing: NEW START IV VANCOMYCIN Consulting Physician: QUE Indication: PNEUMONIA Goal Trough: 15-20 MG/DL SrCr: 3.25 (07/16) CrCl: 20.4 (USING ADJUSTED BW) VancomYCin Dose: 2000MG X 1 TODAY Comment: Will order x1 dose for today then get a level with the 2nd AM labs per policy. CrCl borderline so will dose as <20ml/min due to worsening renal function. Pharmacy Service will continue to monitor and adjust dosing as required. Labs to be done on [date and time ordered]: 07/18/20 @ 0600 ([facility], WITH AM LABS)
[2020-07-16] MEDS: Chlorhexidine 15 ML PO ×2 (09:12→21:02)
--- NOTE | 2020-07-16 10:05 | PN_ITS ---
Patient Problems: Active and Suspected Problems (Last Reviewed 01/22/20 @ 15:[address] Philipp Ybarra MD) ALICIA (acute kidney injury) (Acute) Subjective: Chief complaint: Follow-up after admission for acute bilateral viral COVID-19 pneumonia complicated by acute hypoxic respiratory failure secondary to ARDS, developed acute kidney injury on stage III chronic kidney disease with uremia found to have disruptive shock attributed to sedatives and probably secondary bacterial pneumonia. Patient seen and examined. Overnight, patient continued to deteriorate. Blood pressure remained low in spite of of 3 vasopressors including IV Levophed, vasopressin and phenylephrine and all are maxed out. She is tachycardic, having high-grade fever. She is opening her eyes spontaneously, lethargic, not following commands. She remained on mechanical ventilation. - Physical Exam Vitals/I&O's: Vital Signs Temp Pulse Resp BP Pulse Ox 102.9 F H 137 H 18 77/57 L 94 07/16/20 08:22 07/16/20 08:22 07/16/20 08:22 07/16/20 08:22 07/16/20 08:22 Oxygen Flow Rate (L/min) 10 Oxygen Delivery Method Mechanical Ventilator Weight: 283 lb 1.176 oz Body Mass Index (BMI) 48.9 Finger Stick Blood Glucose 88 Intake and Output for Last 24 Hours 07/14/20 07/15/20 07/16/20 23:59 23:59 23:59 Intake Total 3425.37 / 3536.75 5208.39 / 5790.79 1727.37 / 1727.37 Output Total 925 / 925 640 / 700 820 / 820 Balance 2500.37 / 2611.75 4568.39 / 5090.79 907.37 / 907.37 General: Lethargic, - - Spontaneous eye opening, not following commands. Looks very ill. HEENT: Atraumatic, PERRLA, EOMI, Normocephalic Oral: Moist Mucosa, No Gingival or Mucosal Lesions/ Ulcerations Neck: Supple, No JVD, Negative Carotid Bruits, Trachea Midline, Thyroid Normal Size and Texture Lungs: No rhonchi, No wheeze, Diminished, Rales, Short of Breath, - - Decreased breath sounds bilateral, bilateral crackles. Cardiovascular: Regular rate, Regular Rhythm, Normal S1, Normal S2, PMI Normal, Tachycardic Abdomen: Bowel Sounds Present, Soft, Non Tender, Non-Distended, No Hepato-s plenomegaly, Obese Extremities: No clubbing, No cyanosis, Edema Skin: No rashes, No breakdown Lymphatic: No Cervical, Supraclavicular, or Inguinal Adenopathy Neurological: Cranial nerves II-XII grossly intact, Neuro grossly intact Psych/Mental Status: Flat Affect, - - Lethargic, sleepy. Microbiology Past 72 Hours 07/15/20 06:40 Stool C. difficile DNA Amplification - Final 07/12/20 09:20 Sputum, Induced/Lukens Gram Stain - Final 07/12/20 09:20 Sputum, Induced/Lukens Respiratory Culture - Final 07/08/20 22:40 Blood Culture (Wb) - Left Forearm Blood Culture - Final No growth in 5 days. 07/08/20 22:30 Blood Culture (Wb) - Right Hand Blood Culture - Final No growth in 5 days. Laboratory Results 07/15/20 04:05: Diff Path Review Reviewed 07/15/20 11:32: POC Glucose 253 H 07/15/20 11:35: APTT 102.8 H* 07/15/20 11:35: Procalcitonin 1.24 H 07/15/20 17:13: POC Glucose 307 H 07/15/20 20:10: APTT 55.8 H 07/16/20 01:57: POC Glucose 378 H 07/16/20 03:35: APTT 60.4 H 07/16/20 03:35: Sodium 137, Potassium 4.9, Chloride 107, Carbon Dioxide 18.0 L, Anion Gap 12, BUN 116 H*, Creatinine 3.25 H, Estim Creat Clear Calc 12.56, Est GFR (MDRD) Af Amer 18 L, Est GFR (MDRD) Non-Af 15 L, BUN/Creatinine Ratio 35.7 H , Glucose 381 H, Calcium 7.0 L 07/16/20 03:35: WBC 38.9 H*, RBC 3.43 L, Hgb 9.3 L, Hct 29.3 L, MCV 85.4, MCH 27.1, MCHC 31.7 L, RDW Std Deviation 50.4 H, RDW Coeff of Rahel 16.4 H, Plt Count 338, MPV 13.0 H, Neut % (Auto) Not Reportable, Absolute Neuts (auto) 29.2 H, Absolute Lymphs (auto) 1.17, Total Counted 100, Neutrophils % (Manual) 73 H, Band Neutrophils % 2, Lymphocytes % (Manual) 3 L, Monocytes % (Manual) 14 H, Metamyelocytes % 2 H, Myelocytes % 5 H, Promyelocytes % 1 H, Nucleated RBCs/100 WBC 2, Differential Comment SCANNED, Diff Path Review May foll, Platelet Estimate ADEQUATE, Polychromasia RARE, Microcytosis RARE 07/16/20 05:32: POC Glucose 336 H Current Medications Acetaminophen (Tylenol Liquid) 650 mg GT Q6H PRN PRN PRN Reason: Pain Score 1-10/Temp > 100.7 F Last Admin: 07/16/20 02:00 Dose: 650 mg Documented by: Albuterol Sulfate (Proair Hfa (Sp) Surgery/Vent Pts) 1 puff INHALATION Q2H PRN PRN PRN Reason: SHORTNESS OF BREATH/WHEEZING Atorvastatin Calcium (Lipitor) 20 mg GT QHS [facility] Last Admin: 07/15/20 19:58 Dose: 20 mg Documented by: Chlorhexidine Gluconate () 15 ml PO BID [facility] Last Admin: 07/16/20 09:12 Dose: 15 ml Documented by: Dexamethasone (Decadron) 6 mg GT DAILY@0800 [facility] Stop: 07/18/20 08:01 Last Admin: 07/16/20 08:55 Dose: 6 mg Documented by: Dextrose (D50w Syringe) 0 gm IV X1 PRN; Protocol PRN Reason: Hypoglycemia Famotidine (Pepcid) 20 mg GT DAILY [facility] Last Admin: 07/16/20 08:55 Dose: 20 mg Documented by: Glucagon () 1 mg IM .X1 PRN PRN Reason: Hypoglycemia Guaifenesin (Robitussin) 10 ml GT Q6 [facility] Last Admin: 07/16/20 05:34 Dose: 10 ml Documented by: Sodium Chloride () 250 mls @ 15 mls/hr IV .[id number] PRN PRN Reason: Additional IVPB Infusion Last Infusion: 07/15/20 10:45 Dose: 0 mls/hr Documented by: Propofol (Diprivan) 1,000 mg in 100 mls @ 7.518 mls/hr CONT INF .Q12H [facility]; Protocol Last Admin: 07/16/20 01:12 Dose: Not Given Documented by: Fentanyl Citrate 1,000 mcg/ (Sodium Chloride) 100 mls @ 5 mls/hr CONT INF .Q20H [facility]; Protocol Last Admin: 07/16/20 08:10 Dose: 175 mcg/hr, 17.5 mls/hr Documented by: Enteral Nutritional Formula (Vital Af 1.2 Wong Liquid) 1,000 mls @ 65 mls/hr GT .[id number] [facility] Last Admin: 07/16/20 00:02 Dose: 65 mls/hr Documented by: Heparin Sodium/Sodium Chloride () 25,000 unit in 250 mls @ 16 mls/hr IV .[id number] [facility]; Protocol Last Infusion: 07/15/20 21:25 Dose: 600 units/hr, 6 mls/hr Documented by: Vasopressin 20 units/ Sodium (Chloride) 25 mls @ 3 mls/hr IV .[id number] [facility] Last Infusion: 07/16/20 07:00 Dose: 0.04 units/min, 3 mls/hr Documented by: Piperacillin Sod/Tazobactam (Sod 3.375 gm/ Sodium Chloride) 50 mls @ 12.5 mls/hr IV Q12 [facility] Last Infusion: 07/16/20 00:00 Dose: Infused Documented by: Phenylephrine HCl 40 mg/ (Sodium Chloride) 250 mls @ 3.75 mls/hr CONT INF .[id number] [facility]; Protocol Last Admin: 07/16/20 08:22 Dose: 130 mcg/min, 48.8 mls/hr Documented by: Norepinephrine Bitartrate 16 (mg/ Sodium Chloride) 250 mls @ 4.688 mls/hr CONT INF .[id number] [facility]; Protocol Last Titration: 07/16/20 07:00 Dose: 30 mcg/min, 28.1 mls/hr Documented by: Vancomycin IV Pharmacy to Dose (1 ea/ Sodium Chloride) 500 mls @ 250 mls/hr IV X1 PRN; Protocol PRN Reason: Rx to Dose Vancomycin HCl 2,000 mg/ (Sodium Chloride) 540 mls @ 250 mls/hr IV X1 ONE Stop: 07/16/20 11:39 Last Admin: 07/16/20 09:38 Dose: 250 mls/hr Documented by: Insulin Glargine (Lantus (Bkc)) 75 units SC BID [facility] Insulin Human Lispro (Humalog Kwikpen (Bk)) 0 unit SC Q6 [facility]; Protocol Last Admin: 07/16/20 05:35 Dose: 12 u Documented by: Nystatin (Mycostatin Powder) 1 applic TOPICAL 4X/DAY PRN PRN; Protocol PRN Reason: SKIN Last Admin: 07/16/20 02:29 Dose: 1 applicatio Documented by: Ondansetron HCl (Zofran) 4 mg IV Q6H PRN PRN PRN Reason: NAUSEA/VOMITING Last Admin: 07/11/20 11:13 Dose: 4 mg Documented by: Senna/Docusate Sodium (Senokot-S, Brittney-Colace) 2 tablet GT BID [facility] Last Admin: 07/16/20 08:09 Dose: Not Given Documented by: Sertraline HCl (Zoloft) 100 mg GT DAILY [facility] Last Admin: 07/15/20 09:02 Dose: 100 mg Documented by: Sodium Chloride () 10 - 40 ml IV UD PRN PRN Reason: SALINE FLUSH Last Admin: 07/15/20 11:39 Dose: 20 ml Documented by: Sodium Chloride (Burt Nasal [place]) 2 spray NASAL Q2H PRN PRN Reason: NASAL DRYNESS Last Admin: 07/09/20 21:40 Dose: 2 spray Documented by: Vancomycin HCl () 125 mg PO Q6 [facility] Medical Necessity - Tobacco Use Smoking Status: Never smoker Assessment/Plan All Active Problems (Last Reviewed 01/22/20 @ 15:[address] Philipp Ybarra MD) ALICIA (acute kidney injury) (Acute) Pneumonia due to COVID-19 virus (Acute) This is a 69 years old female patient presented to the emergency room because of weakness, fatigue, mild shortness of breath and she was found to have acute bilateral COVID-19 pneumonia complicated by acute hypoxic respiratory failure due to ARDS. #1 acute hypoxic respiratory failure/ARDS: Secondary to COVID-19 pneumonia, remained mechanical ventilation. She is not doing well, she is deteriorating. She is on 3 IV vasopressors, blood pressure still low. She is tachycardic, febrile. Still requiring requiring high PEEP and FiO2. She is on IV fentanyl drip as well as propofol for sedation. She is on IV Levophed, phenylephrine and vasopressin drip. WBC is trending up, highly elevated. She is on IV Decadron, IV Zosyn and IV remdesivir as well as IV heparin drip. Critical care on the case. No improvement in terms of oxygenation, kidney function is worsening. We may need to talk to patient's family about CODE STATUS as patient's condition is deteriorating. #2 acute bilateral COVID-19 pneumonia: Remained on IV Decadron, IV Zosyn and IV remdesivir. She received 1 unit of convalescent plasma. WBC is again trending up, it is 38,000 today. Blood culture showed no growth in 5 days. Urine culture showed no growth. Sputum culture revealed normal aspiratory william. Respiratory panel for viruses were negative. Pneumococcal and Legionella antigen were negative. She is hemodynamically stable. Plan as above. #3 disruptive shock: Attributed to sedatives as well as probable secondary bacterial pneumonia. Currently, she is on IV Levophed, vasopressin and phenylephrine. Blood pressure still low, tachycardic, febrile. cultures are negative as above. Plan to continue same treatment. #4 Acute kidney injury on top of stage III chronic kidney disease/uremia: Baseline creatinine has been around 1.2 to 1.8 mg/dL. Today's creatinine is 3.25, BUN is 116, both are worsening.. She has poor urine output. Nephrology consulted and stated that hemodialysis cannot be done now because of unstable blood pressure. #5 uncontrolled type 2 diabetes mellitus: Blood sugars uncontrolled in spite of increasing her Lantus and sliding scale. It is because of IV Decadron. It is up to 400s. Lantus increased to 75 units twice daily today. Remains on sliding scale. #6 chronic diastolic CHF/nonischemic cardiomyopathy: She is on statins. Diuretics, Coreg and lisinopril are on hold because of worsening kidney function as well as disruptive shock. #7 depression: Continue sertraline. #8 DVT prophylaxis: She is on IV heparin drip. This note was generated with [employer] dictation software. It may contain incorrect words, spelling, and punctuation that were not noted in checking the note before signing. Inpatient E&M: [id number] [facility] L3
--- NOTE | 2020-07-16 10:09 | CASEMGMT ---
Addendum entered by Ion Gilman 07/16/20 10:44: Dr. Jameson spoke with sister on phone, states codes status changed to [id number] and ok to continue intubation. Plan is to continue care for 24-48/hours, but no hemodialysis. Charito COLMENARES Original Note: RN CM Note: participated in ICU Interdisciplinary rounds. Patient condition continues to require intubation, ventilation and 3 pressors to maintain blood pressures 70/80 systolic. Febrile with T max 103.2 past 24 hours. BUN/CREAT 116/3.25, WBC 38.9. PT/OT on hold for today. Discussed physician speaking with sister re: patient's condition and plan of care going forward. # for sister given to Dr. Jameson and he will call her today. DC PLAN: deferred. Physician to speak with sister re: prognosis and further care goals. Charito SERRATO
[2020-07-16] MEDS: Sertraline 100 MG Tablet GT (11:55)
[2020-07-16 12:20] LABS: Bedside Glucose 321 mg/dL (70-110)
[2020-07-16 14:05] LABS: Pathologist Review Reviewed
--- NOTE | 2020-07-16 15:02 | PCM.PN.ID ---
Patient Problems: Active and Suspected Problems (Last Reviewed 01/22/20 @ 15:[address] Philipp Ybarra MD) ALICIA (acute kidney injury) (Acute) Subjective: On 3 pressors, worsened mental status, diarrhea yesterday, not today. - Physical Exam Vitals/I&O's: Vital Signs Temp Pulse Resp BP Pulse Ox 103.7 F H 135 H 21 H 78/24 L 92 07/16/20 14:04 07/16/20 14:04 07/16/20 14:04 07/16/20 14:04 07/16/20 14:04 Oxygen Flow Rate (L/min) 10 Oxygen Delivery Method Mechanical Ventilator Weight: 128.4 kg Body Mass Index (BMI) 48.9 Finger Stick Blood Glucose 88 Intake and Output for Last 24 Hours 07/14/20 07/15/20 07/16/20 23:59 23:59 23:59 Intake Total 3425.37 / 3536.75 5208.39 / 5790.79 2978.74 / 2978.74 Output Total 925 / 925 640 / 700 820 / 820 Balance 2500.37 / 2611.75 4568.39 / 5090.79 2158.74 / 2158.74 General: Lethargic - opens eyes briefly, Non-Cooperative Lungs: Clear to auscultation, Diminished Cardiovascular: Tachycardic Abdomen: Soft, Non Tender, Non-Distended Skin: No rashes Microbiology Past 72 Hours 07/16/20 10:05 Sputum, Induced/Lukens Gram Stain - Final 07/15/20 06:40 Stool C. difficile DNA Amplification - Final 07/12/20 09:20 Sputum, Induced/Lukens Gram Stain - Final 07/12/20 09:20 Sputum, Induced/Lukens Respiratory Culture - Final 07/08/20 22:40 Blood Culture (Wb) - Left Forearm Blood Culture - Final No growth in 5 days. 07/08/20 22:30 Blood Culture (Wb) - Right Hand Blood Culture - Final No growth in 5 days. Laboratory Results 07/15/20 17:13: POC Glucose 307 H 07/15/20 20:10: APTT 55.8 H 07/16/20 01:57: POC Glucose 378 H 07/16/20 03:35: APTT 60.4 H 07/16/20 03:35: Sodium 137, Potassium 4.9, Chloride 107, Carbon Dioxide 18.0 L, Anion Gap 12, BUN 116 H*, Creatinine 3.25 H, Estim Creat Clear Calc 12.56, Est GFR (MDRD) Af Amer 18 L, Est GFR (MDRD) Non-Af 15 L, BUN/Creatinine Ratio 35.7 H, Glucose 381 H, Calcium 7.0 L 07/16/20 03:35: WBC 38.9 H*, RBC 3.43 L, Hgb 9.3 L, Hct 29.3 L, MCV 85.4, MCH 27.1, MCHC 31.7 L, RDW Std Deviation 50.4 H, RDW Coeff of Rahel 16.4 H, Plt Count 338, MPV 13.0 H, Neut % (Auto) Not Reportable, Absolute Neuts (auto) 29.2 H, Absolute Lymphs (auto) 1.17, Total Counted 100, Neutrophils % (Manual) 73 H, Band Neutrophils % 2, Lymphocytes % (Manual) 3 L, Monocytes % (Manual) 14 H, Metamyelocytes % 2 H, Myelocytes % 5 H, Promyelocytes % 1 H, Nucleated RBCs/100 WBC 2, Differential Comment SCANNED, Diff Path Review Reviewed, Platelet Estimate ADEQUATE, Polychromasia RARE, Microcytosis RARE 07/16/20 05:32: POC Glucose 336 H 07/16/20 11:48: POC Glucose 321 H Current Medications Acetaminophen (Tylenol Liquid) 650 mg GT Q6H PRN PRN PRN Reason: Pain Score 1-10/Temp > 100.7 F Last Admin: 07/16/20 12:02 Dose: 650 mg Documented by: Albuterol Sulfate (Proair Hfa (Sp) Surgery/Vent Pts) 1 puff INHALATION Q2H PRN PRN PRN Reason: SHORTNESS OF BREATH/WHEEZING Atorvastatin Calcium (Lipitor) 20 mg GT QHS [facility] Last Admin: 07/15/20 19:58 Dose: 20 mg Documented by: Chlorhexidine Gluconate () 15 ml PO BID [facility] Last Admin: 07/16/20 09:12 Dose: 15 ml Documented by: Dexamethasone (Decadron) 6 mg GT DAILY@0800 [facility] Stop: 07/18/20 08:01 Last Admin: 07/16/20 08:55 Dose: 6 mg Documented by: Dextrose (D50w Syringe) 0 gm IV X1 PRN; Protocol PRN Reason: Hypoglycemia Famotidine (Pepcid) 20 mg GT DAILY [facility] Last Admin: 07/16/20 08:55 Dose: 20 mg Documented by: Glucagon () 1 mg IM .X1 PRN PRN Reason: Hypoglycemia Guaifenesin (Robitussin) 10 ml GT Q6 [facility] Last Admin: 07/16/20 11:57 Dose: 10 ml Documented by: Sodium Chloride () 250 mls @ 15 mls/hr IV .[id number] PRN PRN Reason: Additional IVPB Infusion Last Infusion: 07/15/20 10:45 Dose: 0 mls/hr Documented by: Propofol (Diprivan) 1,000 mg in 100 mls @ 7.518 mls/hr CONT INF .Q12H [facility]; Protocol Last Admin: 07/16/20 11:58 Dose: Not Given Documented by: Fentanyl Citrate 1,000 mcg/ (Sodium Chloride) 100 mls @ 5 mls/hr CONT INF .Q20H [facility]; Protocol Last Titration: 07/16/20 14:04 Dose: 150 mcg/hr, 15 mls/hr Documented by: Enteral Nutritional Formula (Vital Af 1.2 Wong Liquid) 1,000 mls @ 65 mls/hr GT .[id number] [facility] Last Admin: 07/16/20 14:15 Dose: 65 mls/hr Documented by: Heparin Sodium/Sodium Chloride () 25,000 unit in 250 mls @ 16 mls/hr IV .[id number] [facility]; Protocol Last Admin: 07/16/20 11:59 Dose: Not Given Documented by: Vasopressin 20 units/ Sodium (Chloride) 25 mls @ 3 mls/hr IV .[id number] [facility] Last Admin: 07/16/20 14:33 Dose: 0.04 units/min, 3 mls/hr Documented by: Phenylephrine HCl 40 mg/ (Sodium Chloride) 250 mls @ 3.75 mls/hr CONT INF .[id number] [facility]; Protocol Last Titration: 07/16/20 13:52 Dose: Infused Documented by: Norepinephrine Bitartrate 16 (mg/ Sodium Chloride) 250 mls @ 4.688 mls/hr CONT INF .[id number] [facility]; Protocol Last Titration: 07/16/20 14:04 Dose: 30 mcg/min, 28.1 mls/hr Documented by: Vancomycin IV Pharmacy to Dose (1 ea/ Sodium Chloride) 500 mls @ 250 mls/hr IV X1 PRN; Protocol PRN Reason: Rx to Dose Meropenem 1 gm/ Sodium (Chloride) 120 mls @ 33 mls/hr IV Q12 [facility] Last Admin: 07/16/20 14:43 Dose: 33 mls/hr Documented by: Insulin Glargine (Lantus ([facility])) 75 units SC BID [facility] Last Admin: 07/16/20 11:50 Dose: 75 units Documented by: Insulin Human Lispro (Humalog Kwikpen ([facility])) 0 unit SC Q6 [facility]; Protocol Last Admin: 07/16/20 11:54 Dose: 12 u Documented by: Nystatin (Mycostatin Powder) 1 applic TOPICAL 4X/DAY PRN PRN; Protocol PRN Reason: SKIN Last Admin: 07/16/20 02:29 Dose: 1 applicatio Documented by: Ondansetron HCl (Zofran) 4 mg IV Q6H PRN PRN PRN Reason: NAUSEA/VOMITING Last Admin: 07/11/20 11:13 Dose: 4 mg Documented by: Senna/Docusate Sodium (Senokot-S, Brittney-Colace) 2 tablet GT BID [facility] Last Admin: 07/16/20 08:09 Dose: Not Given Documented by: Sertraline HCl (Zoloft) 100 mg GT DAILY [facility] Last Admin: 07/16/20 11:55 Dose: 100 mg Documented by: Sodium Chloride () 10 - 40 ml IV UD PRN PRN Reason: SALINE FLUSH Last Admin: 07/15/20 11:39 Dose: 20 ml Documented by: Sodium Chloride (Josephine Nasal [place]) 2 spray NASAL Q2H PRN PRN Reason: NASAL DRYNESS Last Admin: 07/09/20 21:40 Dose: 2 spray Documented by: Vancomycin HCl () 125 mg PO Q6 [facility] Last Admin: 07/16/20 11:55 Dose: 125 mg Documented by: Medical Necessity - Tobacco Use Smoking Status: Never smoker Route of nutrition/ use of supplements: [] Nutritional Intake: [] IV Site: [] Hightower Catheter: [] - Assessment/Plan Antibiotics: [] Assessment/Plan: [] covid - receiving remdesivir and dexamethasone, also was given plasma. Worsening status, now on 3 pressors, wbc continues to rise. Diarrhea yesterday, cdiff neg. On iv vanc/zosyn/po vanc. Cxs neg so far, repeats sent this AM. Will change zosyn to meropenem. Will follow. D/w nursing.
--- NOTE | 2020-07-16 15:30 | NURSING ---
temp 104 core tylenol ineffective, placed on cooling blanket
--- NOTE | 2020-07-16 16:07 | PCM.PN.REN ---
Patient Problems: Active and Suspected Problems (Last Reviewed 01/22/20 @ 15:[address] Philipp Ybarra MD) ALICIA (acute kidney injury) (Acute) Subjective: events noted - Physical Exam Vitals/I&O's: Vital Signs Temp Pulse Resp BP Pulse Ox 103.7 F H 132 H 21 H 87/62 L 94 07/16/20 14:04 07/16/20 15:49 07/16/20 15:20 07/16/20 15:49 07/16/20 15:20 Oxygen Flow Rate (L/min) 10 Oxygen Delivery Method Mechanical Ventilator Weight: 128.4 kg Body Mass Index (BMI) 48.9 Finger Stick Blood Glucose 88 Intake and Output for Last 24 Hours 07/14/20 07/15/20 07/16/20 23:59 23:59 23:59 Intake Total 3425.37 / 3536.75 5208.39 / 5790.79 2978.74 / 2978.74 Output Total 925 / 925 640 / 700 820 / 820 Balance 2500.37 / 2611.75 4568.39 / 5090.79 2158.74 / 2158.74 Comment: patient not examined. chart reviewed and discussed with attending Microbiology Past 72 Hours 07/16/20 10:05 Sputum, Induced/Lukens Gram Stain - Final 07/15/20 06:40 Stool C. difficile DNA Amplification - Final 07/12/20 09:20 Sputum, Induced/Lukens Gram Stain - Final 07/12/20 09:20 Sputum, Induced/Lukens Respiratory Culture - Final 07/08/20 22:40 Blood Culture (Wb) - Left Forearm Blood Culture - Final No growth in 5 days. 07/08/20 22:30 Blood Culture (Wb) - Right Hand Blood Culture - Final No growth in 5 days. Laboratory Results 07/15/20 17:13: POC Glucose 307 H 07/15/20 20:10: APTT 55.8 H 07/16/20 01:57: POC Glucose 378 H 07/16/20 03:35: APTT 60.4 H 07/16/20 03:35: Sodium 137, Potassium 4.9, Chloride 107, Carbon Dioxide 18.0 L, Anion Gap 12, BUN 116 H*, Creatinine 3.25 H, Estim Creat Clear Calc 12.56, Est GFR (MDRD) Af Amer 18 L, Est GFR (MDRD) Non-Af 15 L, BUN/Creatinine Ratio 35.7 H, Glucose 381 H, Calcium 7.0 L 07/16/20 03:35: WBC 38.9 H*, RBC 3.43 L, Hgb 9.3 L, Hct 29.3 L, MCV 85.4, MCH 27.1, MCHC 31.7 L, RDW Std Deviation 50.4 H, RDW Coeff of Rahel 16.4 H, Plt Count 338, MPV 13.0 H, Neut % (Auto) Not Reportable, Absolute Neuts (auto) 29.2 H, Absolute Lymphs (auto) 1.17, Total Counted 100, Neutrophils % (Manual) 73 H, Band Neutrophils % 2, Lymphocytes % (Manual) 3 L, Monocytes % (Manual) 14 H, Metamyelocytes % 2 H, Myelocytes % 5 H, Promyelocytes % 1 H, Nucleated RBCs/100 WBC 2, Differential Comment SCANNED, Diff Path Review Reviewed, Platelet Estimate ADEQUATE, Polychromasia RARE, Microcytosis RARE 07/16/20 05:32: POC Glucose 336 H 07/16/20 11:48: POC Glucose 321 H Current Medications Acetaminophen (Tylenol Liquid) 650 mg GT Q6H PRN PRN PRN Reason: Pain Score 1-10/Temp > 100.7 F Last Admin: 07/16/20 12:02 Dose: 650 mg Documented by: Albuterol Sulfate (Proair Hfa (Sp) Surgery/Vent Pts) 1 puff INHALATION Q2H PRN PRN PRN Reason: SHORTNESS OF BREATH/WHEEZING Atorvastatin Calcium (Lipitor) 20 mg GT QHS [facility] Last Admin: 07/15/20 19:58 Dose: 20 mg Documented by: Chlorhexidine Gluconate () 15 ml PO BID [facility] Last Admin: 07/16/20 09:12 Dose: 15 ml Documented by: Dexamethasone (Decadron) 6 mg GT DAILY@0800 [facility] Stop: 07/18/20 08:01 Last Admin: 07/16/20 08:55 Dose: 6 mg Documented by: Dextrose (D50w Syringe) 0 gm IV X1 PRN; Protocol PRN Reason: Hypoglycemia Famotidine (Pepcid) 20 mg GT DAILY [facility] Last Admin: 07/16/20 08:55 Dose: 20 mg Documented by: Glucagon () 1 mg IM .X1 PRN PRN Reason: Hypoglycemia Guaifenesin (Robitussin) 10 ml GT Q6 [facility] Last Admin: 07/16/20 11:57 Dose: 10 ml Documented by: Sodium Chloride () 250 mls @ 15 mls/hr IV .[id number] PRN PRN Reason: Additional IVPB Infusion Last Infusion: 07/15/20 10:45 Dose: 0 mls/hr Documented by: Propofol (Diprivan) 1,000 mg in 100 mls @ 7.518 mls/hr CONT INF .Q12H [facility]; Protocol Last Admin: 07/16/20 11:58 Dose: Not Given Documented by: Fentanyl Citrate 1,000 mcg/ (Sodium Chloride) 100 mls @ 5 mls/hr CONT INF .Q20H [facility]; Protocol Last Titration: 07/16/20 14:04 Dose: 150 mcg/hr, 15 mls/hr Documented by: Enteral Nutritional Formula (Vital Af 1.2 Wong Liquid) 1,000 mls @ 65 mls/hr GT .[id number] [facility] Last Admin: 07/16/20 14:15 Dose: 65 mls/hr Documented by: Heparin Sodium/Sodium Chloride () 25,000 unit in 250 mls @ 16 mls/hr IV .[id number] [facility]; Protocol Last Admin: 07/16/20 11:59 Dose: Not Given Documented by: Vasopressin 20 units/ Sodium (Chloride) 25 mls @ 3 mls/hr IV .[id number] [facility] Last Admin: 07/16/20 14:33 Dose: 0.04 units/min, 3 mls/hr Documented by: Phenylephrine HCl 40 mg/ (Sodium Chloride) 250 mls @ 3.75 mls/hr CONT INF .[id number] [facility]; Protocol Last Titration: 07/16/20 13:52 Dose: Infused Documented by: Norepinephrine Bitartrate 16 (mg/ Sodium Chloride) 250 mls @ 4.688 mls/hr CONT INF .[id number] [facility]; Protocol Last Titration: 07/16/20 14:04 Dose: 30 mcg/min, 28.1 mls/hr Documented by: Vancomycin IV Pharmacy to Dose (1 ea/ Sodium Chloride) 500 mls @ 250 mls/hr IV X1 PRN; Protocol PRN Reason: Rx to Dose Meropenem 1 gm/ Sodium (Chloride) 120 mls @ 33 mls/hr IV Q12 [facility] Last Admin: 07/16/20 14:43 Dose: 33 mls/hr Documented by: Insulin Glargine (Lantus (Bkc)) 75 units SC BID [facility] Last Admin: 07/16/20 11:50 Dose: 75 units Documented by: Insulin Human Lispro (Humalog Kwikpen (Bk)) 0 unit SC Q6 [facility]; Protocol Last Admin: 07/16/20 11:54 Dose: 12 u Documented by: Nystatin (Mycostatin Powder) 1 applic TOPICAL 4X/DAY PRN PRN; Protocol PRN Reason: SKIN Last Admin: 07/16/20 02:29 Dose: 1 applicatio Documented by: Ondansetron HCl (Zofran) 4 mg IV Q6H PRN PRN PRN Reason: NAUSEA/VOMITING Last Admin: 07/11/20 11:13 Dose: 4 mg Documented by: Senna/Docusate Sodium (Senokot-S, Brittney-Colace) 2 tablet GT BID [facility] Last Admin: 07/16/20 08:09 Dose: Not Given Documented by: Sertraline HCl (Zoloft) 100 mg GT DAILY [facility] Last Admin: 07/16/20 11:55 Dose: 100 mg Documented by: Sodium Chloride () 10 - 40 ml IV UD PRN PRN Reason: SALINE FLUSH Last Admin: 07/15/20 11:39 Dose: 20 ml Documented by: Sodium Chloride ([place] Nasal [place]) 2 spray NASAL Q2H PRN PRN Reason: NASAL DRYNESS Last Admin: 07/09/20 21:40 Dose: 2 spray Documented by: Vancomycin HCl () 125 mg PO Q6 [facility] Last Admin: 07/16/20 11:55 Dose: 125 mg Documented by: Medical Necessity - Tobacco Use Smoking Status: Never smoker Assessment/Plan All Active Problems (Last Reviewed 01/22/20 @ 15:[address] Philipp Ybarra MD) ALICIA (acute kidney injury) (Acute) Pneumonia due to COVID-19 virus (Acute) Acute renal failure Covid pneumonia severe Respiratory failure, currently on ventilator remains on 3 pressors high grade fevers will not tolerate dialysis possible hospice
[2020-07-16 17:11] LABS: Bedside Glucose 305 mg/dL (70-110)
[2020-07-16] MEDS: Atorvastatin Calcium 20 MG Tablet GT (21:02)
[2020-07-16] MEDS: Senna/Docusate Sodium 1 Tablet 2 TABLET GT (21:03)
[2020-07-17] VITALS (40 sets, daily range): BP systolic 82–164; BP diastolic 32–99; PULSE 96–140; RESP 10–24; TEMP 35.8–38.2; O2SAT 87–100
[2020-07-17] MEDS: Phenylephrine 40 mg/250 mL 0.9% NS 48.8 MG CONT INF ×5 (00:09→20:56)
[2020-07-17] MEDS: Insulin Lispro 100 UNIT/ML INSULN.PEN SC ×5 (00:21→20:13)
[2020-07-17] MEDS: guaiFENesin 10 ML UDC (200MG/10ML) GT ×5 (01:48→23:31)
[2020-07-17] MEDS: Norepinephrine 16 mg/250 mL 0.9% NS 28.1 MG CONT INF ×3 (03:47→20:58)
[2020-07-17 05:42] LABS: Hematocrit 24.9 % (37-47); Hemoglobin 7.8 g/dL (12.0-15.0); Mean Corp Hgb Conc 31.3 g/dL (32-36); Mean Corpuscular Hgb 26.7 pg (27.0-32.0); Mean Corpuscular Volume 85.3 fL (81-99); Mean Platelet Vol. 12.9 fl (6.2-12.0); POSITIVE COUNT YES; POSITIVE DIFFERENTIAL YES; POSITIVE MORPHOLOGY YES; Platelet Count 256 K/mm3 (150-450); RBC Distribution Width CV 16.4 % (11.6-14.6); RBC Distribution Width SD 50.1 fl (35.1-43.9); Red Blood Count 2.92 M/mm3 (4.2-5.4)
[2020-07-17] MEDS: Nystatin Powder 15gm Bottle 1 APPLIC TOPICAL (05:43)
[2020-07-17] MEDS: 0.9% Saline Lock 10 ML Syringe IV ×2 (05:43→13:12)
[2020-07-17 05:51] LABS: Partial Thromboplast Time 72.7 Seconds (24.1-36.2)
[2020-07-17 05:58] LABS: Differential Indicated MANUAL DIFF; White Blood Count 56.8 K/mm3 (4.4-11.0)
[2020-07-17 06:00] LABS: Anion Gap 10 (5-15); BUN 130 mg/dL (7-18); BUN/Creat Ratio 36.7 RATIO (10-20); Chloride 107 mmol/L (98-107); Creatinine, Serum 3.54 mg/dL (0.55-1.02); EST Glomerular Filtration Rate 14 mL/min (>60); Est Glom Filt Rate - Afr Amer 16 mL/min (>60); Estimated Creatinine Clearance 11.53 ml/min; Glucose 489 mg/dL (74-106); Potassium 4.7 mmol/L (3.5-5.1); Sodium Level 137 mmol/L (136-145)
[2020-07-17 06:07] LABS: Total Cells Counted 100 (MANUAL DIFF)
[2020-07-17 06:11] LABS: Lymphocyte 3 % (19-41); Metamyelocyte 4 % (0-1); Monocyte 10 % (0-10); Myelocyte 2 (0-0); Neutrophil-Band 2 % (0-5); Neutrophil-Segmented 79 % (47-70); Nucleated Red Bld Cells,Manual 3 % (0-5)
[2020-07-17 06:13] LABS: Differential Comment SCANNED; Neutrophil # 45.98 X10^3/uL (2.7-7.7)
[2020-07-17 06:14] LABS: Platelet Estimate ADEQUATE (ADEQ)
[2020-07-17 06:15] LABS: Anisocytosis RARE; Microcytosis RARE
[2020-07-17 06:16] LABS: Bedside Glucose 414 mg/dL (70-110)
[2020-07-17] MEDS: Insulin Lispro 100 UNIT/ML INSULN.PEN 30 UNIT SC (06:27)
[2020-07-17 07:06] LABS: Bedside Glucose 456 mg/dL (70-110)
[2020-07-17 07:06] LABS: Bedside Glucose 405 mg/dL (70-110)
--- NOTE | 2020-07-17 07:44 | PN_ITS ---
Subjective: Patient continues to be on high pressor requirements, but oxygenation significantly improved overnight. Patient does open her eyes to voice, but is not interactive or following commands. Patient has continued to tolerate tube feeds. General: Alert, Confused, Disoriented, Non-Cooperative, - - Morbidly obese. Good ventilator synchrony. HEENT: Atraumatic, PERRLA, EOMI, Normocephalic, - - No scleral injection or icterus Oral: Moist Mucosa, No Gingival or Mucosal Lesions/ Ulcerations Neck: Supple, No JVD, No Nodes, Trachea Midline Lungs: No rhonchi, No wheeze, No rales, Diminished, - - Symmetric expansion Cardiovascular: Normal S1, Normal S2, No murmurs, No rub noted, No Gallop, Tachycardic Abdomen: Bowel Sounds Present, Soft, Non Tender, Non-Distended, Obese Extremities: No cyanosis, Edema Skin: - - No change compared to previous Musculoskeletal: No Tenderness to Palpation of Joints or Extremities Lymphatic: No Cervical, Supraclavicular, or Inguinal Adenopathy Neurological: Cranial nerves II-XII grossly intact, Neuro grossly intact, Motor Exam 5/5 strength throughout Psych/Mental Status: Flat Affect Vital Signs Temp Pulse Resp BP Pulse Ox 36.6 C 115 H 23 H 108/57 L 96 07/17/20 07:00 07/17/20 07:23 07/17/20 07:23 07/17/20 07:00 07/17/20 07:23 Oxygen Flow Rate (L/min) 10 Oxygen Delivery Method Mechanical Ventilator Weight: 134.2 kg Body Mass Index (BMI) 48.9 Finger Stick Blood Glucose 88 Intake and Output for Last 24 Hours 07/15/20 07/16/20 07/17/20 23:59 23:59 23:59 Intake Total 5208.39 / 5790.79 4049.11 / 4182.71 1259.93 / 1259.93 Output Total 640 / 700 1095 / 1095 370 / 370 Balance 4568.39 / 5090.79 2954.11 / 3087.71 889.93 / 889.93 Labs (Last 48 Hours) 07/15/20 07/15/20 07/15/20 04:05 06:10 11:32 WBC RBC Hgb Hct MCV MCH MCHC RDW Std Deviation RDW Coeff of Rahel Plt Count MPV Neut % (Auto) Absolute Neuts (auto) Absolute Lymphs (auto) Total Counted Neutrophils % (Manual) Band Neutrophils % Lymphocytes % (Manual) Monocytes % (Manual) Metamyelocytes % Myelocytes % Promyelocytes % Nucleated RBCs/100 WBC Differential Comment Diff Path Review Reviewed Platelet Estimate Polychromasia Anisocytosis Microcytosis APTT Sodium Potassium Chloride Carbon Dioxide Anion Gap BUN Creatinine Estim Creat Clear Calc Est GFR (MDRD) Af Amer Est GFR (MDRD) Non-Af BUN/Creatinine Ratio Glucose Calcium Procalcitonin POC Glucose 352 H 253 H 07/15/20 07/15/20 07/15/20 11:35 11:35 17:13 WBC RBC Hgb Hct MCV MCH MCHC RDW Std Deviation RDW Coeff of Rahel Plt Count MPV Neut % (Auto) Absolute Neuts (auto) Absolute Lymphs (auto) Total Counted Neutrophils % (Manual) Band Neutrophils % Lymphocytes % (Manual) Monocytes % (Manual) Metamyelocytes % Myelocytes % Promyelocytes % Nucleated RBCs/100 WBC Differential Comment Diff Path Review Platelet Estimate Polychromasia Anisocytosis Microcytosis APTT 102.8 H* Sodium Potassium Chloride Carbon Dioxide Anion Gap BUN Creatinine Estim Creat Clear Calc Est GFR (MDRD) Af Amer Est GFR (MDRD) Non-Af BUN/Creatinine Ratio Glucose Calcium Procalcitonin 1.24 H POC Glucose 307 H 07/15/20 07/16/20 07/16/20 20:10 01:57 03:35 WBC RBC Hgb Hct MCV MCH MCHC RDW Std Deviation RDW Coeff of Rahel Plt Count MPV Neut % (Auto) Absolute Neuts (auto) Absolute Lymphs (auto) Total Counted Neutrophils % (Manual) Band Neutrophils % Lymphocytes % (Manual) Monocytes % (Manual) Metamyelocytes % Myelocytes % Promyelocytes % Nucleated RBCs/100 WBC Differential Comment Diff Path Review Platelet Estimate Polychromasia Anisocytosis Microcytosis APTT 55.8 H 60.4 H Sodium Potassium Chloride Carbon Dioxide Anion Gap BUN Creatinine Estim Creat Clear Calc Est GFR (MDRD) Af Amer Est GFR (MDRD) Non-Af BUN/Creatinine Ratio Glucose Calcium Procalcitonin POC Glucose 378 H 07/16/20 07/16/20 07/16/20 03:35 03:35 05:32 WBC 38.9 H* RBC 3.43 L Hgb 9.3 L Hct 29.3 L MCV 85.4 MCH 27.1 MCHC 31.7 L RDW Std Deviation 50.4 H RDW Coeff of Rahel 16.4 H Plt Count 338 MPV 13.0 H Neut % (Auto) Not Reportable Absolute Neuts (auto) 29.2 H Absolute Lymphs (auto) 1.17 Total Counted 100 Neutrophils % (Manual) 73 H Band Neutrophils % 2 Lymphocytes % (Manual) 3 L Monocytes % (Manual) 14 H Metamyelocytes % 2 H Myelocytes % 5 H Promyelocytes % 1 H Nucleated RBCs/100 WBC 2 Differential Comment SCANNED Diff Path Review Reviewed Platelet Estimate ADEQUATE Polychromasia RARE Anisocytosis Microcytosis RARE APTT Sodium 137 Potassium 4.9 Chloride 107 Carbon Dioxide 18.0 L Anion Gap 12 BUN 116 H* Creatinine 3.25 H Estim Creat Clear Calc 12.56 Est GFR (MDRD) Af Amer 18 L Est GFR (MDRD) Non-Af 15 L BUN/Creatinine Ratio 35.7 H Glucose 381 H Calcium 7.0 L Procalcitonin POC Glucose 336 H 07/16/20 07/16/20 07/17/20 11:48 16:36 00:19 WBC RBC Hgb Hct MCV MCH MCHC RDW Std Deviation RDW Coeff of Rahel Plt Count MPV Neut % (Auto) Absolute Neuts (auto) Absolute Lymphs (auto) Total Counted Neutrophils % (Manual) Band Neutrophils % Lymphocytes % (Manual) Monocytes % (Manual) Metamyelocytes % Myelocytes % Promyelocytes % Nucleated RBCs/100 WBC Differential Comment Diff Path Review Platelet Estimate Polychromasia Anisocytosis Microcytosis APTT Sodium Potassium Chloride Carbon Dioxide Anion Gap BUN Creatinine Estim Creat Clear Calc Est GFR (MDRD) Af Amer Est GFR (MDRD) Non-Af BUN/Creatinine Ratio Glucose Calcium Procalcitonin POC Glucose 321 H 305 H 456 H* 07/17/20 07/17/20 07/17/20 00:22 05:16 05:30 WBC RBC Hgb Hct MCV MCH MCHC RDW Std Deviation RDW Coeff of Rahel Plt Count MPV Neut % (Auto) Absolute Neuts (auto) Absolute Lymphs (auto) Total Counted Neutrophils % (Manual) Band Neutrophils % Lymphocytes % (Manual) Monocytes % (Manual) Metamyelocytes % Myelocytes % Promyelocytes % Nucleated RBCs/100 WBC Differential Comment Diff Path Review Platelet Estimate Polychromasia Anisocytosis Microcytosis APTT 72.7 H Sodium Potassium Chloride Carbon Dioxide Anion Gap BUN Creatinine Estim Creat Clear Calc Est GFR (MDRD) Af Amer Est GFR (MDRD) Non-Af BUN/Creatinine Ratio Glucose Calcium Procalcitonin POC Glucose 405 H 414 H 07/17/20 07/17/20 05:30 05:30 WBC 56.8 H* RBC 2.92 L Hgb 7.8 L Hct 24.9 L MCV 85.3 MCH 26.7 L MCHC 31.3 L RDW Std Deviation 50.1 H RDW Coeff of Rahel 16.4 H Plt Count 256 MPV 12.9 H Neut % (Auto) Not Reportable Absolute Neuts (auto) 46.0 H Absolute Lymphs (auto) 1.70 Total Counted 100 Neutrophils % (Manual) 79 H Band Neutrophils % 2 Lymphocytes % (Manual) 3 L Monocytes % (Manual) 10 Metamyelocytes % 4 H Myelocytes % 2 H Promyelocytes % Nucleated RBCs/100 WBC 3 Differential Comment SCANNED Diff Path Review May foll Platelet Estimate ADEQUATE Polychromasia Anisocytosis RARE Microcytosis RARE APTT Sodium 137 Potassium 4.7 Chloride 107 Carbon Dioxide 20.0 L Anion Gap 10 BUN 130 H* Creatinine 3.54 H Estim Creat Clear Calc 11.53 Est GFR (MDRD) Af Amer 16 L Est GFR (MDRD) Non-Af 14 L BUN/Creatinine Ratio 36.7 H Glucose 489 H* Calcium 7.0 L Procalcitonin POC Glucose Microbiology 07/16/20 10:05 Sputum, Induced/Lukens Gram Stain - Final 07/15/20 06:40 Stool C. difficile DNA Amplification - Final 07/12/20 09:20 Sputum, Induced/Lukens Gram Stain - Final 07/12/20 09:20 Sputum, Induced/Lukens Respiratory Culture - Final Medical Necessity - Tobacco Use Smoking Status: Never smoker Assessment/Plan All Active Problems (Last Reviewed 01/22/20 @ 15:[address] Philipp Ybarra MD) ALICIA (acute kidney injury) (Acute) Pneumonia due to COVID-19 virus (Acute) RECOMMENDATIONS: 1. Wean PEEP and FiO2 per orders to maintain saturations at or above 90%. 2. Complete Decadron, Remdesevir and continue heparin drip. 3. Continue broad-spectrum antibiotics. Panculture and await ID recommen dations 4. Increase Lantus and sliding scale. Additional insulin as necessary. 5. Continue pressors and wean to maintain a mean arterial pressure at or above 65 mmHg. 6. Continue appropriate GI prophylaxis. IMPRESSIONS: 1. Acute hypoxemic respiratory failure secondary to ARDS due to COVID pneumonia The patient initially presented to the hospital with symptoms concerning for coronavirus infection and subsequently tested positive on July 08. Although initially she was on very minimal supplemental oxygen, the patient decompensated from a respiratory perspective over the course of the ensuing days. Chest x-ray revealed progressive bilateral infiltrates. Although attempts were made to utilize noninvasive positive pressure ventilatory support, the patient continued to decompensate from a clinical perspective and had to be intubated on the morning of July 12. She remains on Decadron, therapeutic Lovenox and Remdesevir. The patient also received convalescent plasma on July 11. Patient was significant improvement in oxygenation over the last 24 hours. Unfortunately, patient continues to have fever and high pressor requirements, so we will maintain without spontaneous breathing trials for now. 2. Distributive shock Unclear etiology. Some concern for the development of superimposed bacterial infection despite Zosyn therapy. Patient now developing high fevers and worsening hypotension. Patient will be pancultured and empirically started on p.o. and IV bank. Diarrhea may be secondary to uremia or tube feeds, but given worsening clinical status, high fevers and worsening leukocytosis. Patient appears to have responded to changes overnight. Attempt to wean pressors, Pete-Synephrine first, as tolerated 3. Acute on chronic kidney disease Likely prerenal in etiology and related to ischemic ATN in the setting #2. Continue current supportive measures. Continue vasopressor support to maintain hemodynamic stability. Continue to hold diuretics with increasing creatinine. Nephrology evaluated the patient and stated she would be a poor candidate for hemodialysis at the current time. Will need to discuss with the patient's family moving forward as current condition may be unsustainable. Remaining electrolytes appear to be stable at this time. Family is stated that they would not agree to dialysis under any condition. BUN and creatinine appear to have stabilized 4. History of nonischemic cardiomyopathy/heart failure with reduced ejection fraction Diuretic regimen remains on hold due to hemodynamic instability and acute kidney injury. Recommend conservative use of fluids, given underlying depressed ejection fraction. 5. Morbid obesity/diabetes mellitus/chronic kidney disease/depression/high risk for sleep disordered breathing/CODE STATUS Complicates care, management, recovery and prognosis. Continue sliding scale insulin regimen. Okay to continue tube feeds today from my perspective. The patient remains a full code, following recent conversation with the patient. Addendum 9:23 AM: Asked to evaluate the patient's right arm. Patient had significant induration at the site of the PICC line was noted by nursing. This was evaluated using ultrasound. PICC line was visible within the vessel and did not appear to have associated clot. However, there appeared to be a significant hematoma at the insertion site. Heparin drip will be discontinued for now. A formal right upper extremity ultrasound will be ordered to evaluate for line associated DVT. TIME: 65 minutes of critical care time, independent of procedures, was spent addressing the patient's acute hypoxemic respiratory failure, ARDS secondary to COVID pneumonia, distributive shock, acute on chronic kidney disease, history of congestive heart failure, review of all data and collaboration with care team. (5:25 AM to 6:25 AM) [id number] Critical care first hour
--- NOTE | 2020-07-17 08:37 | PCM.PROGNOTE ---
Patient Problems: Active and Suspected Problems (Last Reviewed 01/22/20 @ 15:[address] Philipp Ybarra MD) ALICIA (acute kidney injury) (Acute) Subjective: Chief complaint: Follow-up after admission for acute bilateral viral COVID-19 pneumonia complicated by acute hypoxic respiratory failure secondary to ARDS, developed acute kidney injury on stage III chronic kidney disease with uremia found to have disruptive shock attributed to sedatives and probably secondary bacterial pneumonia. Patient seen and examined. She remained on 3 vasopressors with high doses. She opens her eyes spontaneously. She is not following commands. Remained on mechanical ventilation, oxygenation improved. Maximum temperature overnight was 97.6 Fahrenheit, has been tachycardic, blood pressure is maintained on 3 vasopressors, on mechanical ventilation. - Physical Exam Vitals/I&O's: Vital Signs Temp Pulse Resp BP Pulse Ox 97.8 F 115 H 23 H 108/57 L 96 07/17/20 07:00 07/17/20 07:23 07/17/20 07:23 07/17/20 07:00 07/17/20 07:23 Oxygen Flow Rate (L/min) 10 Oxygen Delivery Method Mechanical Ventilator Weight: 295 lb 13.765 oz Body Mass Index (BMI) 48.9 Finger Stick Blood Glucose 88 Intake and Output for Last 24 Hours 07/15/20 07/16/20 07/17/20 23:59 23:59 23:59 Intake Total 5208.39 / 5790.79 4049.11 / 4182.71 1259.93 / 1259.93 Output Total 640 / 700 1095 / 1095 370 / 370 Balance 4568.39 / 5090.79 2954.11 / 3087.71 889.93 / 889.93 General: Alert, Cooperative, - - spontaneous eye opening, not following commands. HEENT: Atraumatic, PERRLA, EOMI, Normocephalic Oral: Moist Mucosa, No Gingival or Mucosal Lesions/ Ulcerations Neck: Supple, No JVD, Negative Carotid Bruits, Trachea Midline, Thyroid Normal Size and Texture Lungs: No wheeze, No rales, Diminished, - - Significantly decreased breath sounds bilateral, occasional rhonchi. Cardiovascular: Regular rate, Regular Rhythm, Normal S1, Normal S2, PMI Normal, Tachycardic Abdomen: Bowel Sounds Present, Soft, Non Tender, Non-Distended, No Hepato-splenomegaly, Obese Extremities: No clubbing, No cyanosis, No edema Skin: No rashes, No breakdown Lymphatic: No Cervical, Supraclavicular, or Inguinal Adenopathy Neurological: Cranial nerves II-XII grossly intact, Neuro grossly intact Psych/Mental Status: - - Unable to assess, patient is on mechanical ventilation. Microbiology Past 72 Hours 07/16/20 10:05 Sputum, Induced/Lukens Gram Stain - Final 07/15/20 06:40 Stool C. difficile DNA Amplification - Final 07/12/20 09:20 Sputum, Induced/Lukens Gram Stain - Final 07/12/20 09:20 Sputum, Induced/Lukens Respiratory Culture - Final 07/08/20 22:40 Blood Culture (Wb) - Left Forearm Blood Culture - Final No growth in 5 days. 07/08/20 22:30 Blood Culture (Wb) - Right Hand Blood Culture - Final No growth in 5 days. Laboratory Results 07/16/20 03:35: Diff Path Review Reviewed 07/16/20 11:48: POC Glucose 321 H 07/16/20 16:36: POC Glucose 305 H 07/17/20 00:19: POC Glucose 456 H* 07/17/20 00:22: POC Glucose 405 H 07/17/20 05:16: POC Glucose 414 H 07/17/20 05:30: APTT 72.7 H 07/17/20 05:30: WBC 56.8 H*, RBC 2.92 L, Hgb 7.8 L, Hct 24.9 L, MCV 85.3, MCH 26.7 L, MCHC 31.3 L, RDW Std Deviation 50.1 H, RDW Coeff of Rahel 16.4 H, Plt Count 256, MPV 12.9 H, Neut % (Auto) Not Reportable, Absolute Neuts (auto) 46.0 H, Absolute Lymphs (auto) 1.70, Total Counted 100, Neutrophils % (Manual) 79 H, Band Neutrophils % 2, Lymphocytes % (Manual) 3 L, Monocytes % (Manual) 10, Metamyelocytes % 4 H, Myelocytes % 2 H, Nucleated RBCs/100 WBC 3, Differential Comment SCANNED, Diff Path Review May foll, Platelet Estimate ADEQUATE, Anisocytosis RARE, Microcytosis RARE 07/17/20 05:30: Sodium 137, Potassium 4.7, Chloride 107, Carbon Dioxide 20.0 L, Anion Gap 10, BUN 130 H*, Creatinine 3.54 H, Estim Creat Clear Calc 11.53, Est GFR (MDRD) Af Amer 16 L, Est GFR (MDRD) Non-Af 14 L, BUN/Creatinine Ratio 36.7 H, Glucose 489 H*, Calcium 7.0 L Current Medications Acetaminophen (Tylenol Liquid) 650 mg GT Q6H PRN PRN PRN Reason: Pain Score 1-10/Temp > 100.7 F Last Admin: 07/16/20 18:11 Dose: 650 mg Documented by: Albuterol Sulfate (Proair Hfa (Sp) Surgery/Vent Pts) 1 puff INHALATION Q2H PRN PRN PRN Reason: SHORTNESS OF BREATH/WHEEZING Atorvastatin Calcium (Lipitor) 20 mg GT QHS [facility] Last Admin: 07/16/20 21:02 Dose: 20 mg Documented by: Chlorhexidine Gluconate () 15 ml PO BID [facility] Last Admin: 07/16/20 21:02 Dose: 15 ml Documented by: Dexamethasone (Decadron) 6 mg GT DAILY@0800 [facility] Stop: 07/18/20 08:01 Last Admin: 07/16/20 08:55 Dose: 6 mg Documented by: Dextrose (D50w Syringe) 0 gm IV X1 PRN; Protocol PRN Reason: Hypoglycemia Famotidine (Pepcid) 20 mg GT DAILY [facility] Last Admin: 07/16/20 08:55 Dose: 20 mg Documented by: Glucagon () 1 mg IM .X1 PRN PRN Reason: Hypoglycemia Guaifenesin (Robitussin) 10 ml GT Q6 [facility] Last Admin: 07/17/20 05:17 Dose: 10 ml Documented by: Sodium Chloride () 250 mls @ 15 mls/hr IV .[id number] PRN PRN Reason: Additional IVPB Infusion Last Admin: 07/17/20 05:04 Dose: 15 mls/hr Documented by: Propofol (Diprivan) 1,000 mg in 100 mls @ 7.518 mls/hr CONT INF .Q12H [facility]; Protocol Last Admin: 07/17/20 01:22 Dose: Not Given Documented by: Fentanyl Citrate 1,000 mcg/ (Sodium Chloride) 100 mls @ 5 mls/hr CONT INF .Q20H [facility]; Protocol Last Titration: 07/17/20 07:00 Dose: 125 mcg/hr, 12.5 mls/hr Documented by: Enteral Nutritional Formula (Vital Af 1.2 Wong Liquid) 1,000 mls @ 65 mls/hr GT .[id number] [facility] Last Admin: 07/17/20 05:03 Dose: Not Given Documented by: Heparin Sodium/Sodium Chloride () 25,000 unit in 250 mls @ 16 mls/hr IV .[id number] [facility]; Protocol Last Admin: 07/17/20 06:24 Dose: 600 units/hr, 6 mls/hr Documented by: Vasopressin 20 units/ Sodium (Chloride) 25 mls @ 3 mls/hr IV .[id number] [facility] Last Infusion: 07/17/20 07:09 Dose: 0.04 units/min, 3 mls/hr Documented by: Phenylephrine HCl 40 mg/ (Sodium Chloride) 250 mls @ 3.75 mls/hr CONT INF .[id number] [facility]; Protocol Last Titration: 07/17/20 07:00 Dose: 130 mcg/min, 48.8 mls/hr Documented by: Norepinephrine Bitartrate 16 (mg/ Sodium Chloride) 250 mls @ 4.688 mls/hr CONT INF .[id number] [facility]; Protocol Last Titration: 07/17/20 07:00 Dose: 30 mcg/min, 28.1 mls/hr Documented by: Vancomycin IV Pharmacy to Dose (1 ea/ Sodium Chloride) 500 mls @ 250 mls/hr IV X1 PRN; Protocol PRN Reason: Rx to Dose Meropenem 1 gm/ Sodium (Chloride) 120 mls @ 33 mls/hr IV Q12 [facility] Last Infusion: 07/17/20 02:21 Dose: Infused Documented by: Insulin Glargine (Lantus (Bkc)) 85 units SC BID [facility] Insulin Human Lispro (Humalog Kwikpen (Bkc)) 0 unit SC Q6 [facility]; Protocol Last Admin: 07/17/20 05:17 Dose: 16 u Documented by: Nystatin (Mycostatin Powder) 1 applic TOPICAL 4X/DAY PRN PRN; Protocol PRN Reason: SKIN Last Admin: 07/17/20 05:43 Dose: 1 applicatio Documented by: Ondansetron HCl (Zofran) 4 mg IV Q6H PRN PRN PRN Reason: NAUSEA/VOMITING Last Admin: 07/11/20 11:13 Dose: 4 mg Documented by: Senna/Docusate Sodium (Senokot-S, Brittney-Colace) 2 tablet GT BID [facility] Last Admin: 07/16/20 21:03 Dose: 2 tablet Documented by: Sertraline HCl (Zoloft) 100 mg GT DAILY [facility] Last Admin: 07/16/20 11:55 Dose: 100 mg Documented by: Sodium Chloride () 10 - 40 ml IV UD PRN PRN Reason: SALINE FLUSH Last Admin: 07/17/20 05:43 Dose: 10 ml Documented by: Sodium Chloride ([place] Nasal [place]) 2 spray NASAL Q2H PRN PRN Reason: NASAL DRYNESS Last Admin: 07/09/20 21:40 Dose: 2 spray Documented by: Vancomycin HCl () 125 mg PO Q6 [facility] Last Admin: 07/17/20 05:17 Dose: 125 mg Documented by: Medical Necessity - Tobacco Use Smoking Status: Never smoker Assessment/Plan All Active Problems (Last Reviewed 01/22/20 @ 15:[address] Philipp Ybarra MD) ALICIA (acute kidney injury) (Acute) Pneumonia due to COVID-19 virus (Acute) This is a 69 years old female patient presented to the emergency room because of weakness, fatigue, mild shortness of breath and she was found to have acute bilateral COVID-19 pneumonia complicated by acute hypoxic respiratory failure due to ARDS. #1 acute hypoxic respiratory failure/ARDS: Remained on mechanical ventilation although oxygenation is improving. It is secondary to COVID-19 pneumonia, remained mechanical ventilation. She is on 3 IV vasopressors, blood pressure still low. She is on IV fentanyl drip as well as propofol for sedation. WBC has been worsening every day. She is on IV Decadron, IV Zosyn, meropenem and IV remdesivir as well as IV heparin drip. Critical care on the case. The metal mine inspector discussed the situation with the patient's family yesterday and they refused dialysis and refused any more CPR. Plan to continue same treatment, wean off vasopressors as tolerated. #2 acute bilateral COVID-19 pneumonia: Antibiotic adjusted to IV meropenem and vancomycin. She is hemodynamically unstable, remains on IV Levophed, phenylephrine and vasopressin. She is on IV Decadron, received 1 unit of convalescent plasma. WBC is again trending up, it is 56,000 today. Blood culture showed no growth in 5 days. Urine culture showed no growth. Sputum culture revealed normal aspiratory william. Respiratory panel for viruses were negative. Pneumococcal and Legionella antigen were negative. Repeat blood culture is pending. Plan to continue same treatment. #3 disruptive/refractory shock: Attributed to sedatives as well as probable secondary bacterial pneumonia. Remained on IV Levophed, vasopressin and phenylephrine. Blood pressure is maintained, still tachycardic, afebrile this morning. cultures reviewed as above. Plan to continue same treatment. #4 Acute kidney injury on top of stage III chronic kidney disease/uremia: Baseline creatinine has been around 1.2 to 1.8 mg/dL. Today's creatinine is 3.54, BUN is 130, both are worsening.. She has poor urine output. Nephrology consulted and stated patient is a poor candidate for dialysis. Also, family refused hemodialysis. #5 uncontrolled type 2 diabetes mellitus: Blood sugars persistently uncontrolled in spite of increasing her Lantus and sliding scale. It is because of IV Decadron. It is up to 400s. Lantus increased to 85 units twice daily today. Remains on sliding scale. #6 chronic diastolic CHF/nonischemic cardiomyopathy: She is on statins. Diuretics, Coreg and lisinopril are on hold because of worsening kidney function as well as disruptive shock. #7 depression: Continue sertraline. #8 DVT prophylaxis: She is on IV heparin drip. This note was generated with [employer] dictation software. It may contain incorrect words, spelling, and punctuation that were not noted in checking the note before signing. Inpatient E&M: [id number] [facility] L[facility]
--- NOTE | 2020-07-17 09:16 | VDUE_ITS ---
Reason For Study: SWELLING Right Proximal Right jugular vein is spontaneous, widely patent, phasic, with no intraluminal echogenicity noted. Right subclavian vein is spontaneous, widely patent, phasic, with no intraluminal echogenicity noted. Right Lower Arm not visualized. not visualized. Right Arm Right axillary vein is spontaneous, patent, phasic, competent, compressible and demonstrates augmentation. Right brachial vein is compressible. Right cephalic vein is compressible. Right basilic vein is compressible. Patient Safety COVID + patient with PICC line in place. Nonvasularized, heterogenous structure measuring 4 x 6 cm surrounding PICC line. Veins were difficult to visualize distal to line due to dressing from IV. Technically difficult d/t body habitus / sedated on vent. Interpretation Summary Technically limited examination. The right lower arm is not visualized. No evidence for acute deep vein thrombosis right jugular, subclavian, axillary, and brachial veins. Patent and compressible right cephalic and basilic veins of the upper arm. Heterogenous, nonvascularized structure 4 x 6cm surrounding PICC line, Clinical correlation would be appropriate Ordering Physician: Tee Jameson Performed By: Leanne Rivera, NADJA, RVT ?
--- NOTE | 2020-07-17 09:54 | PCM.PN.ID ---
Patient Problems: Active and Suspected Problems (Last Reviewed 01/22/20 @ 15:[address] Philipp Ybarra MD) ALICIA (acute kidney injury) (Acute) Subjective: Fever resolved. Remains on 3 pressors. - Physical Exam Vitals/I&O's: Vital Signs Temp Pulse Resp BP Pulse Ox 97.8 F 115 H 23 H 108/57 L 96 07/17/20 07:00 07/17/20 07:23 07/17/20 07:23 07/17/20 07:00 07/17/20 07:23 Oxygen Flow Rate (L/min) 10 Oxygen Delivery Method Mechanical Ventilator Weight: 134.2 kg Body Mass Index (BMI) 48.9 Finger Stick Blood Glucose 88 Intake and Output for Last 24 Hours 07/15/20 07/16/20 07/17/20 23:59 23:59 23:59 Intake Total 5208.39 / 5790.79 4049.11 / 4182.71 1259.93 / 1259.93 Output Total 640 / 700 1095 / 1095 445 / 445 Balance 4568.39 / 5090.79 2954.11 / 3087.71 814.93 / 814.93 General: Lethargic, Non-Cooperative Cardiovascular: Irregular Rate, Tachycardic Abdomen: Distended Extremities: No edema Skin: No rashes Microbiology Past 72 Hours 07/16/20 10:05 Sputum, Induced/Lukens Gram Stain - Final 07/15/20 06:40 Stool C. difficile DNA Amplification - Final 07/12/20 09:20 Sputum, Induced/Lukens Gram Stain - Final 07/12/20 09:20 Sputum, Induced/Lukens Respiratory Culture - Final 07/08/20 22:40 Blood Culture (Wb) - Left Forearm Blood Culture - Final No growth in 5 days. 07/08/20 22:30 Blood Culture (Wb) - Right Hand Blood Culture - Final No growth in 5 days. Laboratory Results 07/16/20 03:35: Diff Path Review Reviewed 07/16/20 11:48: POC Glucose 321 H 07/16/20 16:36: POC Glucose 305 H 07/17/20 00:19: POC Glucose 456 H* 07/17/20 00:22: POC Glucose 405 H 07/17/20 05:16: POC Glucose 414 H 07/17/20 05:30: APTT 72.7 H 07/17/20 05:30: WBC 56.8 H*, RBC 2.92 L, Hgb 7.8 L, Hct 24.9 L, MCV 85.3, MCH 26.7 L, MCHC 31.3 L, RDW Std Deviation 50.1 H, RDW Coeff of Rahel 16.4 H, Plt Count 256, MPV 12.9 H, Neut % (Auto) Not Reportable, Absolute Neuts (auto) 46.0 H, Absolute Lymphs (auto) 1.70, Total Counted 100, Neutrophils % (Manual) 79 H, Band Neutrophils % 2, Lymphocytes % (Manual) 3 L, Monocytes % (Manual) 10, Metamyelocytes % 4 H, Myelocytes % 2 H, Nucleated RBCs/100 WBC 3, Differential Comment SCANNED, Diff Path Review May foll, Platelet Estimate ADEQUATE, Anisocytosis RARE, Microcytosis RARE 07/17/20 05:30: Sodium 137, Potassium 4.7, Chloride 107, Carbon Dioxide 20.0 L, Anion Gap 10, BUN 130 H*, Creatinine 3.54 H, Estim Creat Clear Calc 11.53, Est GFR (MDRD) Af Amer 16 L, Est GFR (MDRD) Non-Af 14 L, BUN/Creatinine Ratio 36.7 H, Glucose 489 H*, Calcium 7.0 L Current Medications Acetaminophen (Tylenol Liquid) 650 mg GT Q6H PRN PRN PRN Reason: Pain Score 1-10/Temp > 100.7 F Last Admin: 07/16/20 18:11 Dose: 650 mg Documented by: Albuterol Sulfate (Proair Hfa (Sp) Surgery/Vent Pts) 1 puff INHALATION Q2H PRN PRN PRN Reason: SHORTNESS OF BREATH/WHEEZING Atorvastatin Calcium (Lipitor) 20 mg GT QHS [facility] Last Admin: 07/16/20 21:02 Dose: 20 mg Documented by: Chlorhexidine Gluconate () 15 ml PO BID [facility] Last Admin: 07/16/20 21:02 Dose: 15 ml Documented by: Dexamethasone (Decadron) 6 mg GT DAILY@0800 [facility] Stop: 07/18/20 08:01 Last Admin: 07/16/20 08:55 Dose: 6 mg Documented by: Dextrose (D50w Syringe) 0 gm IV X1 PRN; Protocol PRN Reason: Hypoglycemia Famotidine (Pepcid) 20 mg GT DAILY [facility] Last Admin: 07/16/20 08:55 Dose: 20 mg Documented by: Glucagon () 1 mg IM .X1 PRN PRN Reason: Hypoglycemia Guaifenesin (Robitussin) 10 ml GT Q6 [facility] Last Admin: 07/17/20 05:17 Dose: 10 ml Documented by: Sodium Chloride () 250 mls @ 15 mls/hr IV .[id number] PRN PRN Reason: Additional IVPB Infusion Last Admin: 07/17/20 05:04 Dose: 15 mls/hr Documented by: Propofol (Diprivan) 1,000 mg in 100 mls @ 7.518 mls/hr CONT INF .Q12H [facility]; Protocol Last Admin: 07/17/20 01:22 Dose: Not Given Documented by: Fentanyl Citrate 1,000 mcg/ (Sodium Chloride) 100 mls @ 5 mls/hr CONT INF .Q20H [facility]; Protocol Last Titration: 07/17/20 07:00 Dose: 125 mcg/hr, 12.5 mls/hr Documented by: Enteral Nutritional Formula (Vital Af 1.2 Wong Liquid) 1,000 mls @ 65 mls/hr GT .[id number] [facility] Last Admin: 07/17/20 05:03 Dose: Not Given Documented by: Vasopressin 20 units/ Sodium (Chloride) 25 mls @ 3 mls/hr IV .[id number] [facility] Last Infusion: 07/17/20 07:09 Dose: 0.04 units/min, 3 mls/hr Documented by: Phenylephrine HCl 40 mg/ (Sodium Chloride) 250 mls @ 3.75 mls/hr CONT INF .[id number] [facility]; Protocol Last Titration: 07/17/20 07:00 Dose: 130 mcg/min, 48.8 mls/hr Documented by: Norepinephrine Bitartrate 16 (mg/ Sodium Chloride) 250 mls @ 4.688 mls/hr CONT INF .[id number] [facility]; Protocol Last Titration: 07/17/20 07:00 Dose: 30 mcg/min, 28.1 mls/hr Documented by: Vancomycin IV Pharmacy to Dose (1 ea/ Sodium Chloride) 500 mls @ 250 mls/hr IV X1 PRN; Protocol PRN Reason: Rx to Dose Meropenem 1 gm/ Sodium (Chloride) 120 mls @ 33 mls/hr IV Q12 [facility] Last Infusion: 07/17/20 02:21 Dose: Infused Documented by: Insulin Glargine (Lantus (Bk)) 85 units SC BID [facility] Insulin Human Lispro (Humalog Kwikpen (Bk)) 0 unit SC Q6 [facility]; Protocol Last Admin: 07/17/20 05:17 Dose: 16 u Documented by: Nystatin (Mycostatin Powder) 1 applic TOPICAL 4X/DAY PRN PRN; Protocol PRN Reason: SKIN Last Admin: 07/17/20 05:43 Dose: 1 applicatio Documented by: Ondansetron HCl (Zofran) 4 mg IV Q6H PRN PRN PRN Reason: NAUSEA/VOMITING Last Admin: 07/11/20 11:13 Dose: 4 mg Documented by: Senna/Docusate Sodium (Senokot-S, Brittney-Colace) 2 tablet GT BID [facility] Last Admin: 07/16/20 21:03 Dose: 2 tablet Documented by: Sertraline HCl (Zoloft) 100 mg GT DAILY [facility] Last Admin: 07/16/20 11:55 Dose: 100 mg Documented by: Sodium Chloride () 10 - 40 ml IV UD PRN PRN Reason: SALINE FLUSH Last Admin: 07/17/20 05:43 Dose: 10 ml Documented by: Sodium Chloride ([place] Nasal Cassandra) 2 spray NASAL Q2H PRN PRN Reason: NASAL DRYNESS Last Admin: 07/09/20 21:40 Dose: 2 spray Documented by: Vancomycin HCl () 125 mg PO Q6 [facility] Last Admin: 07/17/20 05:17 Dose: 125 mg Documented by: Medical Necessity - Tobacco Use Smoking Status: Never smoker Route of nutrition/ use of supplements: [] Nutritional Intake: [] IV Site: [] Hightower Catheter: [] - Assessment/Plan Antibiotics: [] Assessment/Plan: [] covid - receiving remdesivir and dexamethasone, also was given plasma. Fever now resolved. Remains on 3 pressors. O2 improved. Wbc and ALICIA cont to worsen. On empiric vanc/riya/po vanc. Cdiff was neg, diarrhea resolved. With hypotension and wide pulse pressure this AM, will check echo. Will follow.
[2020-07-17] MEDS: Chlorhexidine 15 ML PO ×2 (10:30→20:11)
[2020-07-17 12:14] LABS: Pathologist Review Reviewed
[2020-07-17] MEDS: Sertraline 100 MG Tablet GT (13:12)
[2020-07-17] MEDS: dexAMETHasone 4 MG Tablet 6 MG GT (13:12)
[2020-07-17] MEDS: Famotidine 20 MG Tablet GT (13:12)
[2020-07-17] MEDS: Vital AF 1.2 Cal Liquid 1,000 ML 65 ML GT (13:22)
[2020-07-17 13:40] LABS: Bedside Glucose 418 mg/dL (70-110)
--- NOTE | 2020-07-17 13:47 | PN.RENAL_ITS ---
Patient Problems: Active and Suspected Problems (Last Reviewed 01/22/20 @ 15:[address] Philipp Ybarra MD) ALICIA (acute kidney injury) (Acute) Subjective: somewhat better fevers are better WBC is higher 3 pressors urine output borderline cr worse - Physical Exam Vitals/I&O's: Vital Signs Temp Pulse Resp BP Pulse Ox 98.7 F 108 H 14 101/59 L 91 07/17/20 12:00 07/17/20 12:00 07/17/20 12:00 07/17/20 12:00 07/17/20 12:00 Oxygen Flow Rate (L/min) 10 Oxygen Delivery Method Mechanical Ventilator Weight: 134.2 kg Body Mass Index (BMI) 48.9 Finger Stick Blood Glucose 88 Intake and Output for Last 24 Hours 07/15/20 07/16/20 07/17/20 23:59 23:59 23:59 Intake Total 5208.39 / 5790.79 4049.11 / 4182.71 2713.50 / 2713.50 Output Total 640 / 700 1095 / 1095 620 / 620 Balance 4568.39 / 5090.79 2954.11 / 3087.71 2093.50 / 2093.50 Comment: patient not examined in detail. dw staff. RUE hematoma. intubated. Microbiology Past 72 Hours 07/16/20 08:50 Urine Catheter - Hightower Urine Culture - Preliminary Yeast Like Organism 07/16/20 10:05 Sputum, Induced/Lukens Gram Stain - Final 07/16/20 10:05 Sputum, Induced/Lukens Respiratory Culture - Preliminary Yeast Like Organism 07/15/20 06:40 Stool C. difficile DNA Amplification - Final 07/12/20 09:20 Sputum, Induced/Lukens Gram Stain - Final 07/12/20 09:20 Sputum, Induced/Lukens Respiratory Culture - Final Laboratory Results 07/16/20 03:35: Diff Path Review Reviewed 07/16/20 16:36: POC Glucose 305 H 07/17/20 00:19: POC Glucose 456 H* 07/17/20 00:22: POC Glucose 405 H 07/17/20 05:16: POC Glucose 414 H 07/17/20 05:30: APTT 72.7 H 07/17/20 05:30: WBC 56.8 H*, RBC 2.92 L, Hgb 7.8 L, Hct 24.9 L, MCV 85.3, MCH 26.7 L, MCHC 31.3 L, RDW Std Deviation 50.1 H, RDW Coeff of Rahel 16.4 H, Plt Count 256, MPV 12.9 H, Neut % (Auto) Not Reportable, Absolute Neuts (auto) 46.0 H, Absolute Lymphs (auto) 1.70, Total Counted 100, Neutrophils % (Manual) 79 H, Band Neutrophils % 2, Lymphocytes % (Manual) 3 L, Monocytes % (Manual) 10, Metamyelocytes % 4 H, Myelocytes % 2 H, Nucleated RBCs/100 WBC 3, Differential Comment SCANNED, Diff Path Review Reviewed, Platelet Estimate ADEQUATE, Anisocytosis RARE, Microcytosis RARE 07/17/20 05:30: Sodium 137, Potassium 4.7, Chloride 107, Carbon Dioxide 20.0 L, Anion Gap 10, BUN 130 H*, Creatinine 3.54 H, Estim Creat Clear Calc 11.53, Est GFR (MDRD) Af Amer 16 L, Est GFR (MDRD) Non-Af 14 L, BUN/Creatinine Ratio 36.7 H , Glucose 489 H*, Calcium 7.0 L 07/17/20 12:48: POC Glucose 418 H Current Medications Acetaminophen (Tylenol Liquid) 650 mg GT Q6H PRN PRN PRN Reason: Pain Score 1-10/Temp > 100.7 F Last Admin: 07/16/20 18:11 Dose: 650 mg Documented by: Albuterol Sulfate (Proair Hfa (Sp) Surgery/Vent Pts) 1 puff INHALATION Q2H PRN PRN PRN Reason: SHORTNESS OF BREATH/WHEEZING Atorvastatin Calcium (Lipitor) 20 mg GT QHS [facility] Last Admin: 07/16/20 21:02 Dose: 20 mg Documented by: Chlorhexidine Gluconate () 15 ml PO BID [facility] Last Admin: 07/16/20 21:02 Dose: 15 ml Documented by: Dexamethasone (Decadron) 6 mg GT DAILY@0800 [facility] Stop: 07/18/20 08:01 Last Admin: 07/17/20 13:12 Dose: 6 mg Documented by: Dextrose (D50w Syringe) 0 gm IV X1 PRN; Protocol PRN Reason: Hypoglycemia Famotidine (Pepcid) 20 mg GT DAILY [facility] Last Admin: 07/17/20 13:12 Dose: 20 mg Documented by: Glucagon () 1 mg IM .X1 PRN PRN Reason: Hypoglycemia Guaifenesin (Robitussin) 10 ml GT Q6 [facility] Last Admin: 07/17/20 13:12 Dose: 10 ml Documented by: Sodium Chloride () 250 mls @ 15 mls/hr IV .[id number] PRN PRN Reason: Additional IVPB Infusion Last Admin: 07/17/20 05:04 Dose: 15 mls/hr Documented by: Propofol (Diprivan) 1,000 mg in 100 mls @ 7.518 mls/hr CONT INF .Q12H SUNNY; Protocol Last Admin: 07/17/20 12:10 Dose: Not Given Documented by: Fentanyl Citrate 1,000 mcg/ (Sodium Chloride) 100 mls @ 5 mls/hr CONT INF .Q20H [facility]; Protocol Last Titration: 07/17/20 12:00 Dose: 100 mcg/hr, 10 mls/hr Documented by: Enteral Nutritional Formula (Vital Af 1.2 Wong Liquid) 1,000 mls @ 65 mls/hr GT .[id number] SUNNY Last Admin: 07/17/20 13:22 Dose: 65 mls/hr Documented by: Vasopressin 20 units/ Sodium (Chloride) 25 mls @ 3 mls/hr IV .Q8H20M [facility] Last Infusion: 07/17/20 12:00 Dose: 0.04 units/min, 3 mls/hr Documented by: Phenylephrine HCl 40 mg/ (Sodium Chloride) 250 mls @ 3.75 mls/hr CONT INF .[id number] [facility]; Protocol Last Titration: 07/17/20 12:00 Dose: 130 mcg/min, 48.8 mls/hr Documented by: Norepinephrine Bitartrate 16 (mg/ Sodium Chloride) 250 mls @ 4.688 mls/hr CONT INF .[id number] [facility]; Protocol Last Admin: 07/17/20 12:10 Dose: 30 mcg/min, 28.1 mls/hr Documented by: Vancomycin IV Pharmacy to Dose (1 ea/ Sodium Chloride) 500 mls @ 250 mls/hr IV X1 PRN; Protocol PRN Reason: Rx to Dose Meropenem 1 gm/ Sodium (Chloride) 120 mls @ 33 mls/hr IV Q12 [facility] Last Infusion: 07/17/20 02:21 Dose: Infused Documented by: Insulin Glargine (Lantus (Bk)) 85 units SC BID [facility] Last Admin: 07/17/20 13:13 Dose: 85 units Documented by: Insulin Human Lispro (Humalog Kwikpen (Bk)) 0 unit SC Q6 [facility]; Protocol Last Admin: 07/17/20 13:13 Dose: 16 u Documented by: Nystatin (Mycostatin Powder) 1 applic TOPICAL 4X/DAY PRN PRN; Protocol PRN Reason: SKIN Last Admin: 07/17/20 05:43 Dose: 1 applicatio Documented by: Ondansetron HCl (Zofran) 4 mg IV Q6H PRN PRN PRN Reason: NAUSEA/VOMITING Last Admin: 07/11/20 11:13 Dose: 4 mg Documented by: Senna/Docusate Sodium (Senokot-S, Brittney-Colace) 2 tablet GT BID [facility] Last Admin: 07/16/20 21:03 Dose: 2 tablet Documented by: Sertraline HCl (Zoloft) 100 mg GT DAILY [facility] Last Admin: 07/17/20 13:12 Dose: 100 mg Documented by: Sodium Chloride () 10 - 40 ml IV UD PRN PRN Reason: SALINE FLUSH Last Admin: 07/17/20 13:12 Dose: 20 ml Documented by: Sodium Chloride (Mccurtain Nasal [place]) 2 spray NASAL Q2H PRN PRN Reason: NASAL DRYNESS Last Admin: 07/09/20 21:40 Dose: 2 spray Documented by: Vancomycin HCl () 125 mg PO Q6 [facility] Last Admin: 07/17/20 13:12 Dose: 125 mg Documented by: Medical Necessity - Tobacco Use Smoking Status: Never smoker Assessment/Plan All Active Problems (Last Reviewed 01/22/20 @ 15:[address] Philipp Ybarra MD) ALICIA (acute kidney injury) (Acute) Pneumonia due to COVID-19 virus (Acute) Acute renal failure Covid pneumonia severe Respiratory failure, currently on ventilator remains on 3 pressors BUN and cr are worse electrolytes are ok O2 requirements better fevers have resolved dw staff as per family no plans for dialysis
[2020-07-17 18:26] LABS: Bedside Glucose 362 mg/dL (70-110)
[2020-07-17] MEDS: Atorvastatin Calcium 20 MG Tablet GT (20:12)
[2020-07-17] MEDS: Acetaminophen 650 MG/20 ML UDC GT (20:37)
[2020-07-17 22:25] LABS: Bedside Glucose 347 mg/dL (70-110)
[2020-07-18] VITALS (83 sets, daily range): BP systolic 93–181; BP diastolic 35–98; PULSE 93–147; RESP 11–28; TEMP 35.2–38.8; O2SAT 86–100
[2020-07-18] MEDS: Phenylephrine 40 mg/250 mL 0.9% NS 48.8 MG CONT INF (02:05)
[2020-07-18] MEDS: Insulin Lispro 100 UNIT/ML INSULN.PEN SC ×5 (02:32→23:30)
[2020-07-18] MEDS: Vital AF 1.2 Cal Liquid 1,000 ML 65 ML GT ×2 (02:39→21:21)
[2020-07-18] MEDS: Acetaminophen 650 MG/20 ML UDC GT ×2 (02:44→23:25)
[2020-07-18 03:16] LABS: Bedside Glucose 257 mg/dL (70-110)
[2020-07-18] MEDS: guaiFENesin 10 ML UDC (200MG/10ML) GT ×4 (05:13→23:25)
[2020-07-18] MEDS: 0.9% Saline Lock 10 ML Syringe IV ×2 (05:39→20:49)
[2020-07-18 05:40] LABS: Hematocrit 23.4 % (37-47); Hemoglobin 7.4 g/dL (12.0-15.0); Mean Corp Hgb Conc 31.6 g/dL (32-36); Mean Corpuscular Hgb 26.4 pg (27.0-32.0); Mean Corpuscular Volume 83.6 fL (81-99); Mean Platelet Vol. 11.7 fl (6.2-12.0); POSITIVE COUNT YES; Platelet Count 197 K/mm3 (150-450); RBC Distribution Width CV 16.6 % (11.6-14.6); RBC Distribution Width SD 49.4 fl (35.1-43.9)
[2020-07-18 05:51] LABS: White Blood Count 76.7 K/mm3 (4.4-11.0)
[2020-07-18 05:51] LABS: Bedside Glucose 243 mg/dL (70-110)
[2020-07-18] MEDS: Norepinephrine 16 mg/250 mL 0.9% NS 28.1 MG CONT INF (05:52)
[2020-07-18 05:55] LABS: Anion Gap 6 (5-15); BUN 128 mg/dL (7-18); BUN/Creat Ratio 45.7 RATIO (10-20); Calcium,Total 7.4 mg/dL (8.5-10.1); Chloride 111 mmol/L (98-107); EST Glomerular Filtration Rate 18 mL/min (>60); Est Glom Filt Rate - Afr Amer 21 mL/min (>60); Estimated Creatinine Clearance 14.58 ml/min; Glucose 253 mg/dL (74-106); Potassium 4.8 mmol/L (3.5-5.1); Sodium Level 140 mmol/L (136-145); Vancomycin, Random Level 14.5 ug/mL (0.0-15.0)
[2020-07-18 05:58] LABS: International Normalized Ratio 1.5; Prothrombin Time (Protime)PT. 17.7 SECONDS (11.7-14.9)
[2020-07-18 05:59] LABS: Partial Thromboplast Time 24.4 Seconds (24.1-36.2)
[2020-07-18 06:02] LABS: Procalcitonin 0.74 ng/mL (0.00-0.09)
[2020-07-18 07:21] LABS: Lymphocyte 7 % (19-41); Metamyelocyte 2 % (0-1); Monocyte 9 % (0-10); Myelocyte 2 (0-0); Neutrophil-Band 4 % (0-5); Neutrophil-Segmented 76 % (47-70); Nucleated Red Bld Cells,Manual 2 % (0-5); Total Cells Counted 100 (MANUAL DIFF)
[2020-07-18 07:22] LABS: Platelet Estimate ADEQUATE (ADEQ)
[2020-07-18 07:23] LABS: Absolute Lymphocyte Count 5.37 X10^3/uL (0.83-4.51); Differential Indicated MANUAL DIFF; Lymphocyte # 5.37 X10^3/ul (4.0)
[2020-07-18 07:24] LABS: Absolute Neutrophil Count 61.3 X10^3/uL (2.0-7.7); Neutrophil # 61.34 X10^3/uL (2.7-7.7)
[2020-07-18 07:25] LABS: Hypochromasia 3+; Macrocytosis 1+; Microcytosis 3+; Polychromasia 1+; Schistocytes RARE
[2020-07-18] MEDS: dexAMETHasone 4 MG Tablet 6 MG GT (08:07)
--- NOTE | 2020-07-18 08:08 | PN_ITS ---
Subjective: Patient did okay overnight. Patient's blood pressure has improved, but patient did have significant fever. No significant bleeding has been reported, but hematoma appears to be stable. Patient appears to be more alert, but still not tracking. Patient more appropriate today. General: Alert, Confused, Disoriented, - - Morbidly obese HEENT: Atraumatic, PERRLA, EOMI, Normocephalic, - - Scleral injection without icterus Oral: Moist Mucosa, No Gingival or Mucosal Lesions/ Ulcerations Neck: Supple, No Nodes, Trachea Midline, JVD, Right Lungs: No wheeze, No rales, Diminished, Rhonchi Cardiovascular: Normal S1, Normal S2, No murmurs, No rub noted, No Gallop, Tachycardic Abdomen: Bowel Sounds Present, Soft, Non Tender, Non-Distended, Obese Extremities: No cyanosis, Edema, - - Large indurated mass of the right upper extremity. Right extremity cooler, but palpable radial pulse Skin: - - Significant ecchymosis noted to bilateral upper extremities Musculoskeletal: No Tenderness to Palpation of Joints or Extremities Lymphatic: No Cervical, Supraclavicular, or Inguinal Adenopathy Neurological: Cranial nerves II-XII grossly intact, Neuro grossly intact Psych/Mental Status: Flat Affect, Restless Vital Signs Temp Pulse Resp BP Pulse Ox 36.6 C 101 H 14 147/46 H 94 07/18/20 07:15 07/18/20 07:15 07/18/20 07:15 07/18/20 07:15 07/18/20 07:15 Oxygen Flow Rate (L/min) 10 Oxygen Delivery Method Mechanical Ventilator Weight: 137.6 kg Body Mass Index (BMI) 48.9 Finger Stick Blood Glucose 88 Intake and Output for Last 24 Hours 07/16/20 07/17/20 07/18/20 23:59 23:59 23:59 Intake Total 4049.11 / 4182.71 5208.00 / 5297.57 1241.28 / 1241.28 Output Total 1095 / 1095 1270 / 1270 300 / 300 Balance 2954.11 / 3087.71 3938.00 / 4027.57 941.28 / 941.28 Labs (Last 48 Hours) 07/16/20 07/16/20 07/16/20 03:35 11:48 16:36 WBC RBC Hgb Hct MCV MCH MCHC RDW Std Deviation RDW Coeff of Rahel Plt Count MPV Neut % (Auto) Absolute Neuts (auto) Absolute Lymphs (auto) Total Counted Neutrophils % (Manual) Band Neutrophils % Lymphocytes % (Manual) Monocytes % (Manual) Metamyelocytes % Myelocytes % Nucleated RBCs/100 WBC Differential Comment Diff Path Review Reviewed Platelet Estimate Polychromasia Hypochromasia Anisocytosis Microcytosis Macrocytosis Schistocytes PT INR APTT Sodium Potassium Chloride Carbon Dioxide Anion Gap BUN Creatinine Estim Creat Clear Calc Est GFR (MDRD) Af Amer Est GFR (MDRD) Non-Af BUN/Creatinine Ratio Glucose Calcium Procalcitonin Random Vancomycin POC Glucose 321 H 305 H 07/17/20 07/17/20 07/17/20 00:19 00:22 05:16 WBC RBC Hgb Hct MCV MCH MCHC RDW Std Deviation RDW Coeff of Rahel Plt Count MPV Neut % (Auto) Absolute Neuts (auto) Absolute Lymphs (auto) Total Counted Neutrophils % (Manual) Band Neutrophils % Lymphocytes % (Manual) Monocytes % (Manual) Metamyelocytes % Myelocytes % Nucleated RBCs/100 WBC Differential Comment Diff Path Review Platelet Estimate Polychromasia Hypochromasia Anisocytosis Microcytosis Macrocytosis Schistocytes PT INR APTT Sodium Potassium Chloride Carbon Dioxide Anion Gap BUN Creatinine Estim Creat Clear Calc Est GFR (MDRD) Af Amer Est GFR (MDRD) Non-Af BUN/Creatinine Ratio Glucose Calcium Procalcitonin Random Vancomycin POC Glucose 456 H* 405 H 414 H 07/17/20 07/17/20 07/17/20 05:30 05:30 05:30 WBC 56.8 H* RBC 2.92 L Hgb 7.8 L Hct 24.9 L MCV 85.3 MCH 26.7 L MCHC 31.3 L RDW Std Deviation 50.1 H RDW Coeff of Rahel 16.4 H Plt Count 256 MPV 12.9 H Neut % (Auto) Not Reportable Absolute Neuts (auto) 46.0 H Absolute Lymphs (auto) 1.70 Total Counted 100 Neutrophils % (Manual) 79 H Band Neutrophils % 2 Lymphocytes % (Manual) 3 L Monocytes % (Manual) 10 Metamyelocytes % 4 H Myelocytes % 2 H Nucleated RBCs/100 WBC 3 Differential Comment SCANNED Diff Path Review Reviewed Platelet Estimate ADEQUATE Polychromasia Hypochromasia Anisocytosis RARE Microcytosis RARE Macrocytosis Schistocytes PT INR APTT 72.7 H Sodium 137 Potassium 4.7 Chloride 107 Carbon Dioxide 20.0 L Anion Gap 10 BUN 130 H* Creatinine 3.54 H Estim Creat Clear Calc 11.53 Est GFR (MDRD) Af Amer 16 L Est GFR (MDRD) Non-Af 14 L BUN/Creatinine Ratio 36.7 H Glucose 489 H* Calcium 7.0 L Procalcitonin Random Vancomycin POC Glucose 07/17/20 07/17/20 07/17/20 12:48 18:13 20:08 WBC RBC Hgb Hct MCV MCH MCHC RDW Std Deviation RDW Coeff of Rahel Plt Count MPV Neut % (Auto) Absolute Neuts (auto) Absolute Lymphs (auto) Total Counted Neutrophils % (Manual) Band Neutrophils % Lymphocytes % (Manual) Monocytes % (Manual) Metamyelocytes % Myelocytes % Nucleated RBCs/100 WBC Differential Comment Diff Path Review Platelet Estimate Polychromasia Hypochromasia Anisocytosis Microcytosis Macrocytosis Schistocytes PT INR APTT Sodium Potassium Chloride Carbon Dioxide Anion Gap BUN Creatinine Estim Creat Clear Calc Est GFR (MDRD) Af Amer Est GFR (MDRD) Non-Af BUN/Creatinine Ratio Glucose Calcium Procalcitonin Random Vancomycin POC Glucose 418 H 362 H 347 H 07/18/20 07/18/20 07/18/20 02:29 05:10 05:27 WBC RBC Hgb Hct MCV MCH MCHC RDW Std Deviation RDW Coeff of Rahel Plt Count MPV Neut % (Auto) Absolute Neuts (auto) Absolute Lymphs (auto) Total Counted Neutrophils % (Manual) Band Neutrophils % Lymphocytes % (Manual) Monocytes % (Manual) Metamyelocytes % Myelocytes % Nucleated RBCs/100 WBC Differential Comment Diff Path Review Platelet Estimate Polychromasia Hypochromasia Anisocytosis Microcytosis Macrocytosis Schistocytes PT INR APTT Sodium Potassium Chloride Carbon Dioxide Anion Gap BUN Creatinine Estim Creat Clear Calc Est GFR (MDRD) Af Amer Est GFR (MDRD) Non-Af BUN/Creatinine Ratio Glucose Calcium Procalcitonin Random Vancomycin 14.5 POC Glucose 257 H 243 H 07/18/20 07/18/20 07/18/20 05:27 05:27 05:27 WBC 76.7 H* RBC 2.80 L Hgb 7.4 L Hct 23.4 L MCV 83.6 MCH 26.4 L MCHC 31.6 L RDW Std Deviation 49.4 H RDW Coeff of Rahel 16.6 H Plt Count 197 MPV 11.7 Neut % (Auto) Not Reportable Absolute Neuts (auto) 61.3 H Absolute Lymphs (auto) 5.37 H Total Counted 100 Neutrophils % (Manual) 76 H Band Neutrophils % 4 Lymphocytes % (Manual) 7 L Monocytes % (Manual) 9 Metamyelocytes % 2 H Myelocytes % 2 H Nucleated RBCs/100 WBC 2 Differential Comment Diff Path Review May foll Platelet Estimate ADEQUATE Polychromasia 1+ Hypochromasia 3+ Anisocytosis Microcytosis 3+ Macrocytosis 1+ Schistocytes RARE PT 17.7 H INR 1.5 APTT 24.4 Sodium Potassium Chloride Carbon Dioxide Anion Gap BUN Creatinine Estim Creat Clear Calc Est GFR (MDRD) Af Amer Est GFR (MDRD) Non-Af BUN/Creatinine Ratio Glucose Calcium Procalcitonin 0.74 H Random Vancomycin POC Glucose 07/18/20 05:27 WBC RBC Hgb Hct MCV MCH MCHC RDW Std Deviation RDW Coeff of Rahel Plt Count MPV Neut % (Auto) Absolute Neuts (auto) Absolute Lymphs (auto) Total Counted Neutrophils % (Manual) Band Neutrophils % Lymphocytes % (Manual) Monocytes % (Manual) Metamyelocytes % Myelocytes % Nucleated RBCs/100 WBC Differential Comment Diff Path Review Platelet Estimate Polychromasia Hypochromasia Anisocytosis Microcytosis Macrocytosis Schistocytes PT INR APTT Sodium 140 Potassium 4.8 Chloride 111 H Carbon Dioxide 23.0 Anion Gap 6 BUN 128 H* Creatinine 2.80 H Estim Creat Clear Calc 14.58 Est GFR (MDRD) Af Amer 21 L Est GFR (MDRD) Non-Af 18 L BUN/Creatinine Ratio 45.7 H Glucose 253 H Calcium 7.4 L Procalcitonin Random Vancomycin POC Glucose Microbiology 07/16/20 08:50 Urine Catheter - Hightower Urine Culture - Preliminary Sheryl albicans 07/16/20 10:05 Sputum, Induced/Lukens Gram Stain - Final 07/16/20 10:05 Sputum, Induced/Lukens Respiratory Culture - Preliminary Yeast Like Organism Medical Necessity - Tobacco Use Smoking Status: Never smoker Assessment/Plan All Active Problems (Last Reviewed 01/22/20 @ 15:[address] Philipp Ybarra MD) ALICIA (acute kidney injury) (Acute) Pneumonia due to COVID-19 virus (Acute) RECOMMENDATIONS: 1. Wean PEEP and FiO2 per orders to maintain saturations at or above 90%. 2. Complete Decadron, Remdesevir and continue heparin drip. 3. Continue broad-spectrum antibiotics. Await panculture and ID recommendations 4. Continue Lantus and sliding scale. Additional insulin as necessary. 5. Continue pressors using strategy below and wean to maintain a mean arterial pressure at or above 65 mmHg. 6. Continue appropriate GI prophylaxis. IMPRESSIONS: 1. Acute hypoxemic respiratory failure secondary to ARDS due to COVID pneumonia The patient initially presented to the hospital with symptoms concerning for coronavirus infection and subsequently tested positive on July 08. Although initially she was on very minimal supplemental oxygen, the patient decompensated from a respiratory perspective over the course of the ensuing days. Chest x-ray revealed progressive bilateral infiltrates. Although attempts were made to utilize noninvasive positive pressure ventilatory support, the patient continued to decompensate from a clinical perspective and had to be intubated on the morning of July 12. She remains on Decadron, therapeutic Lovenox and Remdesevir. The patient also received convalescent plasma on July 11. Patient was significant improvement in oxygenation over the last 24 hours. Unfortunately, patient continues to have fever and high pressor requirements, so we will maintain without spontaneous breathing trials for now. 2. Distributive shock Unclear etiology. Some concern for the development of superimposed bacterial infection despite Zosyn therapy. Patient continues to have worsening leukocytosis, but pressor agents are improving with change in antibiotics. Patient appears to have responded to changes overnight. Attempt to wean pressors, Pete-Synephrine first, as tolerated. Vasopressin can be discontinued when Levophed is down to 20. 3. Acute on chronic kidney disease Slightly improved. Likely prerenal in etiology and related to ischemic ATN in the setting #2. Continue current supportive measures. Continue vasopressor support to maintain hemodynamic stability. Continue to hold diuretics with increasing creatinine. Nephrology evaluated the patient and stated she would be a poor candidate for hemodialysis at the current time. Will need to discuss with the patient's family moving forward as current condition may be unsustainable. Remaining electrolytes appear to be stable at this time. Family is stated that they would not agree to dialysis under any condition. BUN and creatinine appear to have stabilized and urine output is improving 4. History of nonischemic cardiomyopathy/heart failure with reduced ejection fraction Diuretic regimen remains on hold due to hemodynamic instability and acute kidney injury. Recommend conservative use of fluids, given underlying depressed ejection fraction. 5. Morbid obesity/diabetes mellitus/chronic kidney disease/depression/high risk for sleep disordered breathing/CODE STATUS Complicates care, management, recovery and prognosis. Continue sliding sc diane insulin regimen. Okay to continue tube feeds today from my perspective. The patient remains a full code, following recent conversation with the patient. 6. Right upper extremity hematoma Significant hematoma at the PICC line insertion site. Anticoagulation has been held. Will monitor arm circumference. Will order 2 units of packed red blood cells to see if this will help with hypotension and cardiac delivery 7. Leukocytosis Unclear etiology. Patient appears to be having a leukemoid reaction and manual differential suggests a neutrophilic predominance without bandemia. Patient does have some immature cell types, but does not appear to have obvious leukemia. TIME: 50 minutes of critical care time, independent of procedures, was spent addressing the patient's acute hypoxemic respiratory failure, ARDS secondary to COVID pneumonia, distributive shock, acute on chronic kidney disease, history of congestive heart failure, review of all data and collaboration with care team. (6 AM to 7:30 AM) [id number] Critical care first hour
--- NOTE | 2020-07-18 08:40 | PCM.RX.CS ---
Consult Pharmacy has been consulted to manage selected antiobiotic: Vancomycin Type of Consult: Follow-up Suspected Infection: Pneumonia Labs: Sodium 140 mmol/L (136-145) 07/18/20 05:27 Potassium 4.8 mmol/L (3.5-5.1) 07/18/20 05:27 Chloride 111 mmol/L (98-107) H 07/18/20 05:27 Carbon Dioxide 23.0 mmol/L (21.0-32.0) 07/18/20 05:27 Anion Gap 6 (5-15) 07/18/20 05:27 BUN 128 mg/dL (7-18) H* 07/18/20 05:27 Creatinine 2.80 mg/dL (0.55-1.02) H 07/18/20 05:27 Est GFR (MDRD) Af Amer 21 mL/min (>60) L 07/18/20 05:27 Est GFR (MDRD) Non-Af 18 mL/min (>60) L 07/18/20 05:27 BUN/Creatinine Ratio 45.7 RATIO (10-20) H 07/18/20 05:27 Glucose 253 mg/dL (74-106) H 07/18/20 05:27 Random Vancomycin 14.5 ug/mL (0.0-15.0) 07/18/20 05:27 Microbiology: Microbiology 07/16/20 09:10 Blood Culture (Wb) - Line Draw Blood Culture - Preliminary No growth in 48 hours. 07/16/20 08:50 Urine Catheter - Hightower Urine Culture - Final Michael albicans 07/16/20 10:05 Sputum, Induced/Lukens Gram Stain - Final 07/16/20 10:05 Sputum, Induced/Lukens Respiratory Culture - Preliminary Yeast Like Organism 07/15/20 06:40 Stool C. difficile DNA Amplification - Final 07/12/20 09:20 Sputum, Induced/Lukens Gram Stain - Final 07/12/20 09:20 Sputum, Induced/Lukens Respiratory Culture - Final 07/08/20 22:40 Blood Culture (Wb) - Left Forearm Blood Culture - Final No growth in 5 days. 07/08/20 22:30 Blood Culture (Wb) - Right Hand Blood Culture - Final No growth in 5 days. 07/10/20 13:45 Sputum, Expectorated/Coughed Gram Stain - Final 07/10/20 13:45 Sputum, Expectorated/Coughed Respiratory Culture - Final Culture exhibits no growth. 07/08/20 19:35 Urine, Random Streptococcus pneumoniae Antigen (M - Final 07/08/20 19:35 Urine, Random Legionella Antigen - Final 07/08/20 19:10 Mucosa - Nasopharyngeal Respiratory Panel (PCR) - Final Weight used for dosin.6 kg Goal Trough: 15-20 mcg/mL Pharmacy Plan for Drug Dosing: VANCOMYCIN LEVEL RECEIVED Current Vancomycin Dose: 2000MG X1 Number of Doses Received: 1 Vancomycin Level: RANDOM LEVEL - 14.5MG/DL Hours Since Last Dose: 44 Renal Function: SCR 2.8, CRCL 24.8ML/MIN (USING ADJUSTED BODY WEIGHT OF 82.5KG) Renal Function Trend: SLIGHTLY IMPROVED Lab/Micro: MICHAEL IN URINE, YEAST IN BLOOD. Vancomycin Plan/Comments: 2000MG X1 DOSE TODAY. WILL GET A LEVEL WITH AM LABS 07/20 Pharmacy Service will continue to monitor and adjust dosing as required. Labs to be done on [date and time ordered]: 07/20/20 @ 0600 (RANDOM LEVEL)
[2020-07-18] MEDS: Phenylephrine 40 mg/250 mL 0.9% NS 26.3 MG CONT INF (09:56)
--- NOTE | 2020-07-18 09:59 | PCM.PROGNOTE ---
Patient Problems: Active and Suspected Problems (Last Reviewed 01/22/20 @ 15:[address] Philipp Ybarra MD) ALICIA (acute kidney injury) (Acute) Subjective: Chief complaint: Follow-up after admission for acute bilateral viral COVID-19 pneumonia complicated by acute hypoxic respiratory failure secondary to ARDS, developed acute kidney injury on stage III chronic kidney disease with uremia found to have disruptive shock. She developed left upper extremity hematoma due to PICC line and being on IV heparin drip, found to have acute blood loss anemia. Patient seen and examined. No acute events overnight. Her blood pressure started to improve, nursing staff was able to wean off Pete-Synephrine. Patient still having spikes of fever. Patient is alert, not able to follow commands. Her heart rate are stable, blood pressure is improving, on mechanical ventilation. - Physical Exam Vitals/I&O's: Vital Signs Temp Pulse Resp BP Pulse Ox 96.2 F L 95 14 166/55 H 93 07/18/20 09:15 07/18/20 09:15 07/18/20 09:15 07/18/20 09:15 07/18/20 09:15 Oxygen Flow Rate (L/min) 10 Oxygen Delivery Method Mechanical Ventilator Weight: 303 lb 5.697 oz Body Mass Index (BMI) 48.9 Finger Stick Blood Glucose 88 Intake and Output for Last 24 Hours 07/16/20 07/17/20 07/18/20 23:59 23:59 23:59 Intake Total 4049.11 / 4182.71 5208.00 / 5297.57 1447.10 / 1447.10 Output Total 1095 / 1095 1270 / 1270 475 / 475 Balance 2954.11 / 3087.71 3938.00 / 4027.57 972.10 / 972.10 General: Alert, Lethargic, - - Not following commands, on mechanical ventilation. HEENT: Atraumatic, PERRLA, EOMI, Normocephalic Oral: Moist Mucosa, No Gingival or Mucosal Lesions/ Ulcerations Neck: Supple, No JVD, Negative Carotid Bruits, Trachea Midline, Thyroid Normal Size and Texture Lungs: No wheeze, No rales, Diminished, Rhonchi, - - Decreased breath sounds bilateral, bilateral rhonchi. Cardiovascular: Regular rate, Regular Rhythm, Normal S1, Normal S2, PMI Normal Abdomen: Bowel Sounds Present, Soft, Non Tender, Non-Distended, No Hepato-splenomegaly, Obese Extremities: No clubbing, No cyanosis, No edema, - - Left upper extremity: Extensive bruises on the left forearm and around left elbow. Skin: No rashes, No breakdown Musculoskeletal: No Tenderness to Palpation of Joints or Extremities Lymphatic: No Cervical, Supraclavicular, or Inguinal Adenopathy Neurological: Cranial nerves II-XII grossly intact, Neuro grossly intact Psych/Mental Status: Flat Affect Microbiology Past 72 Hours 07/16/20 09:10 Blood Culture (Wb) - Line Draw Blood Culture - Preliminary No growth in 48 hours. 07/16/20 08:50 Urine Catheter - Hightower Urine Culture - Final Sheryl albicans 07/16/20 10:05 Sputum, Induced/Lukens Gram Stain - Final 07/16/20 10:05 Sputum, Induced/Lukens Respiratory Culture - Preliminary Yeast Like Organism 07/15/20 06:40 Stool C. difficile DNA Amplification - Final 07/12/20 09:20 Sputum, Induced/Lukens Gram Stain - Final 07/12/20 09:20 Sputum, Induced/Lukens Respiratory Culture - Final Laboratory Results 07/17/20 05:30: Diff Path Review Reviewed 07/17/20 12:48: POC Glucose 418 H 07/17/20 18:13: POC Glucose 362 H 07/17/20 20:08: POC Glucose 347 H 07/18/20 02:29: POC Glucose 257 H 07/18/20 05:10: POC Glucose 243 H 07/18/20 05:27: Random Vancomycin 14.5 07/18/20 05:27: Procalcitonin 0.74 H 07/18/20 05:27: WBC 76.7 H*, RBC 2.80 L, Hgb 7.4 L, Hct 23.4 L, MCV 83.6, MCH 26.4 L, MCHC 31.6 L, RDW Std Deviation 49.4 H, RDW Coeff of Rahel 16.6 H, Plt Count 197, MPV 11.7, Neut % (Auto) Not Reportable, Absolute Neuts (auto) 61.3 H, Absolute Lymphs (auto) 5.37 H, Total Counted 100, Neutrophils % (Manual) 76 H, Band Neutrophils % 4, Lymphocytes % (Manual) 7 L, Monocytes % (Manual) 9, Metamyelocytes % 2 H, Myelocytes % 2 H, Nucleated RBCs/100 WBC 2, Differential Comment , Diff Path Review May foll, Platelet Estimate ADEQUATE, Polychromasia 1+, Hypochromasia 3+, Microcytosis 3+, Macrocytosis 1+, Schistocytes RARE 07/18/20 05:27: PT 17.7 H, INR 1.5, APTT 24.4 07/18/20 05:27: Sodium 140, Potassium 4.8, Chloride 111 H, Carbon Dioxide 23.0, Anion Gap 6, BUN 128 H*, Creatinine 2.80 H, Estim Creat Clear Calc 14.58, Est GFR (MDRD) Af Amer 21 L, Est GFR (MDRD) Non-Af 18 L, BUN/Creatinine Ratio 45.7 H, Glucose 253 H, Calcium 7.4 L Current Medications Acetaminophen (Tylenol Liquid) 650 mg GT Q6H PRN PRN PRN Reason: Pain Score 1-10/Temp > 100.7 F Last Admin: 07/18/20 02:44 Dose: 650 mg Documented by: Albuterol Sulfate (Proair Hfa (Sp) Surgery/Vent Pts) 1 puff INHALATION Q2H PRN PRN PRN Reason: SHORTNESS OF BREATH/WHEEZING Atorvastatin Calcium (Lipitor) 20 mg GT QHS [facility] Last Admin: 07/17/20 20:12 Dose: 20 mg Documented by: Chlorhexidine Gluconate () 15 ml PO BID [facility] Last Admin: 07/17/20 20:11 Dose: 15 ml Documented by: Dextrose (D50w Syringe) 0 gm IV X1 PRN; Protocol PRN Reason: Hypoglycemia Famotidine (Pepcid) 20 mg GT DAILY [facility] Last Admin: 07/17/20 13:12 Dose: 20 mg Documented by: Glucagon () 1 mg IM .X1 PRN PRN Reason: Hypoglycemia Guaifenesin (Robitussin) 10 ml GT Q6 [facility] Last Admin: 07/18/20 05:13 Dose: 10 ml Documented by: Sodium Chloride () 250 mls @ 15 mls/hr IV .[id number] PRN PRN Reason: Additional IVPB Infusion Last Admin: 07/17/20 21:45 Dose: 15 mls/hr Documented by: Propofol (Diprivan) 1,000 mg in 100 mls @ 7.518 mls/hr CONT INF .Q12H [facility]; Protocol Last Admin: 07/17/20 20:21 Dose: Not Given Documented by: Fentanyl Citrate 1,000 mcg/ (Sodium Chloride) 100 mls @ 5 mls/hr CONT INF .Q20H [facility]; Protocol Last Titration: 07/18/20 09:00 Dose: 200 mcg/hr, 20 mls/hr Documented by: Enteral Nutritional Formula (Vital Af 1.2 Wong Liquid) 1,000 mls @ 65 mls/hr GT .[id number] [facility] Last Admin: 07/18/20 02:39 Dose: 65 mls/hr Documented by: Vasopressin 20 units/ Sodium (Chloride) 25 mls @ 3 mls/hr IV .Q8H20M [facility] Last Admin: 07/18/20 09:55 Dose: 0.04 units/min, 3 mls/hr Documented by: Phenylephrine HCl 40 mg/ (Sodium Chloride) 250 mls @ 3.75 mls/hr CONT INF .[id number] [facility]; Protocol Last Admin: 07/18/20 09:56 Dose: 70 mcg/min, 26.3 mls/hr Documented by: Norepinephrine Bitartrate 16 (mg/ Sodium Chloride) 250 mls @ 4.688 mls/hr CONT INF .[id number] [facility]; Protocol Last Titration: 07/18/20 09:00 Dose: 30 mcg/min, 28.1 mls/hr Documented by: Vancomycin IV Pharmacy to Dose (1 ea/ Sodium Chloride) 500 mls @ 250 mls/hr IV X1 PRN; Protocol PRN Reason: Rx to Dose Meropenem 500 mg/ Sodium (Chloride) 60 mls @ 100 mls/hr IV Q12 [facility] Last Infusion: 07/17/20 20:53 Dose: Infused Documented by: Vancomycin HCl 2,000 mg/ (Sodium Chloride) 540 mls @ 250 mls/hr IV X1 ONE Stop: 07/18/20 11:09 Last Admin: 07/18/20 09:57 Dose: 250 mls/hr Documented by: Insulin Glargine (Lantus (Bk)) 100 units SC BID [facility] Last Admin: 07/17/20 20:13 Dose: 100 u Documented by: Insulin Human Lispro (Humalog Kwikpen ([facility])) 0 unit SC Q4 [facility]; Protocol Last Admin: 07/18/20 05:13 Dose: 6 u Documented by: Nystatin (Mycostatin Powder) 1 applic TOPICAL 4X/DAY PRN PRN; Protocol PRN Reason: SKIN Last Admin: 07/17/20 05:43 Dose: 1 applicatio Documented by: Ondansetron HCl (Zofran) 4 mg IV Q6H PRN PRN PRN Reason: NAUSEA/VOMITING Last Admin: 07/11/20 11:13 Dose: 4 mg Documented by: Senna/Docusate Sodium (Senokot-S, Brittney-Colace) 2 tablet GT BID [facility] Last Admin: 07/17/20 20:18 Dose: Not Given Documented by: Sertraline HCl (Zoloft) 100 mg GT DAILY [facility] Last Admin: 07/17/20 13:12 Dose: 100 mg Documented by: Sodium Chloride () 10 - 40 ml IV UD PRN PRN Reason: SALINE FLUSH Last Admin: 07/18/20 05:39 Dose: 30 ml Documented by: Sodium Chloride ([place] Nasal [place]) 2 spray NASAL Q2H PRN PRN Reason: NASAL DRYNESS Last Admin: 07/09/20 21:40 Dose: 2 spray Documented by: Vancomycin HCl () 125 mg PO Q6 [facility] Last Admin: 07/18/20 05:13 Dose: 125 mg Documented by: Medical Necessity - Tobacco Use Smoking Status: Never smoker Assessment/Plan All Active Problems (Last Reviewed 01/22/20 @ 15:[address] Philipp Ybarra MD) ALICIA (acute kidney injury) (Acute) Pneumonia due to COVID-19 virus (Acute) This is a 69 years old female patient presented to the emergency room because of weakness, fatigue, mild shortness of breath and she was found to have acute bilateral COVID-19 pneumonia complicated by acute hypoxic respiratory failure due to ARDS. #1 acute hypoxic respiratory failure/ARDS: Remained on mechanical ventilation, oxygen has been improving. It is secondary to COVID-19 pneumonia. She is on 3 IV vasopressors, phenylephrine weaned down, blood pressure started to improve. She is on IV fentanyl drip as well as propofol for sedation. WBC kept worsening. She is onIV Zosyn, meropenem and IV remdesivir. IV heparin discontinued because of left upper extremity hematoma. Critical care on the case. Plan: Blood transfusion today, keep weaning vasopressors as tolerated, no more CPR. #2 acute bilateral COVID-19 pneumonia: She is on IV meropenem and vancomycin. Blood pressure started to improve, Pete-Synephrine was weaned down, remains on IV Levophed and vasopressin. She is on IV Decadron and remdesivir, received 1 unit of convalescent plasma. WBC is again trending up, it is 76,000 today. Blood culture showed no growth in 5 days. Urine culture showed no growth. Sputum culture revealed normal aspiratory william. Respiratory panel for viruses were negative. Pneumococcal and Legionella antigen were negative. Repeat blood culture is pending. Plan to continue same treatment. #3 left upper forearm/left elbow hematoma: Due to PICC line and being on IV heparin drip. IV parents continued. Her platelet count is normal. INR is 1.5. Plan to monitor. #4 acute blood loss anemia: It is combination of blood loss from the left upper extremity hematoma as well as hemodilution and acute illness. Today hemoglobin is 7.4 g/dL. Plan to transfuse 2 units of packed RBCs, repeat CBC tomorrow morning. #5 disruptive/refractory shock: Attributed to sedatives as well as probable secondary bacterial pneumonia. Pete-Synephrine weaned down, remains on IV Levophed and vasopressin. Blood pressure i started to improve.. cultures reviewed as above. Plan to continue same treatment. #6 Acute kidney injury on top of stage III chronic kidney disease/uremia: Baseline creatinine has been around 1.2 to 1.8 mg/dL. Her kidney function slightly improved. today's creatinine is 2.80, BUN is 128, both are worsening.. She has poor urine output. Nephrology consulted and stated patient is a poor candidate for dialysis. Also, family refused hemodialysis. #7 uncontrolled type 2 diabetes mellitus: Blood sugar started to improve, it is down to 200s. It is multifactorial because of IV Decadron and acute illness. She is on Lantus handgrips twice daily as well as sliding scale. #8 chronic diastolic CHF/nonischemic cardiomyopathy: She is on statins. Diuretics, Coreg and lisinopril are on hold because of worsening kidney function as well as disruptive shock. #9 depression: Continue sertraline. #10 DVT prophylaxis: SCDs. IV heparin discontinued because of left upper extremity hematoma. This note was generated with [employer] dictation software. It may contain incorrect words, spelling, and punctuation that were not noted in checking the note before signing. Inpatient E&M: 61609 Subs Hosp L3
[2020-07-18] MEDS: Famotidine 20 MG Tablet GT (10:09)
[2020-07-18] MEDS: Chlorhexidine 15 ML PO ×2 (10:09→20:49)
[2020-07-18] MEDS: Sertraline 100 MG Tablet GT (10:10)
[2020-07-18 11:25] LABS: Bedside Glucose 274 mg/dL (70-110)
--- NOTE | 2020-07-18 13:18 | PN.RENAL_ITS ---
Patient Problems: Active and Suspected Problems (Last Reviewed 01/22/20 @ 15:[address] Philipp Ybarra MD) ALICIA (acute kidney injury) (Acute) Subjective: no new events - Physical Exam Vitals/I&O's: Vital Signs Temp Pulse Resp BP Pulse Ox 95.3 F L 95 16 153/51 H 91 07/18/20 12:00 07/18/20 12:00 07/18/20 12:00 07/18/20 12:00 07/18/20 12:00 Oxygen Flow Rate (L/min) 10 Oxygen Delivery Method Mechanical Ventilator Weight: 137.6 kg Body Mass Index (BMI) 48.9 Finger Stick Blood Glucose 88 Intake and Output for Last 24 Hours 07/16/20 07/17/20 07/18/20 23:59 23:59 23:59 Intake Total 4049.11 / 4182.71 5208.00 / 5297.57 2098.18 / 2098.18 Output Total 1095 / 1095 1270 / 1270 650 / 650 Balance 2954.11 / 3087.71 3938.00 / 4027.57 1448.18 / 1448.18 Comment: exam minimized due to covid. intubated Microbiology Past 72 Hours 07/16/20 09:10 Blood Culture (Wb) - Line Draw Blood Culture - Preliminary No growth in 48 hours. 07/16/20 08:50 Urine Catheter - Hightower Urine Culture - Final Sheryl albicans 07/16/20 10:05 Sputum, Induced/Lukens Gram Stain - Final 07/16/20 10:05 Sputum, Induced/Lukens Respiratory Culture - Preliminary Yeast Like Organism Laboratory Results 07/17/20 12:48: POC Glucose 418 H 07/17/20 18:13: POC Glucose 362 H 07/17/20 20:08: POC Glucose 347 H 07/18/20 02:29: POC Glucose 257 H 07/18/20 05:10: POC Glucose 243 H 07/18/20 05:27: Random Vancomycin 14.5 07/18/20 05:27: Procalcitonin 0.74 H 07/18/20 05:27: WBC 76.7 H*, RBC 2.80 L, Hgb 7.4 L, Hct 23.4 L, MCV 83.6, MCH 26.4 L, MCHC 31.6 L, RDW Std Deviation 49.4 H, RDW Coeff of Rahel 16.6 H, Plt Count 197, MPV 11.7, Neut % (Auto) Not Reportable, Absolute Neuts (auto) 61.3 H, Absolute Lymphs (auto) 5.37 H, Total Counted 100, Neutrophils % (Manual) 76 H, Band Neutrophils % 4, Lymphocytes % (Manual) 7 L, Monocytes % (Manual) 9, Metamyelocytes % 2 H, Myelocytes % 2 H, Nucleated RBCs/100 WBC 2, Differential Comment , Diff Path Review May foll, Platelet Estimate ADEQUATE, Polychromasia 1+, Hypochromasia 3+, Microcytosis 3+, Macrocytosis 1+, Schistocytes RARE 07/18/20 05:27: PT 17.7 H, INR 1.5, APTT 24.4 07/18/20 05:27: Sodium 140, Potassium 4.8, Chloride 111 H, Carbon Dioxide 23.0, Anion Gap 6, BUN 128 H*, Creatinine 2.80 H, Estim Creat Clear Calc 14.58, Est GFR (MDRD) Af Amer 21 L, Est GFR (MDRD) Non-Af 18 L, BUN/Creatinine Ratio 45.7 H , Glucose 253 H, Calcium 7.4 L 07/18/20 10:50: Blood Type O POSITIVE, Antibody Screen NEGATIVE, Crossmatch See Detail 07/18/20 11:10: POC Glucose 274 H Current Medications Acetaminophen (Tylenol Liquid) 650 mg GT Q6H PRN PRN PRN Reason: Pain Score 1-10/Temp > 100.7 F Last Admin: 07/18/20 02:44 Dose: 650 mg Documented by: Albuterol Sulfate (Proair Hfa (Sp) Surgery/Vent Pts) 1 puff INHALATION Q2H PRN PRN PRN Reason: SHORTNESS OF BREATH/WHEEZING Atorvastatin Calcium (Lipitor) 20 mg GT QHS [facility] Last Admin: 07/17/20 20:12 Dose: 20 mg Documented by: Chlorhexidine Gluconate () 15 ml PO BID [facility] Last Admin: 07/18/20 10:09 Dose: 15 ml Documented by: Dextrose (D50w Syringe) 0 gm IV X1 PRN; Protocol PRN Reason: Hypoglycemia Famotidine (Pepcid) 20 mg GT DAILY [facility] Last Admin: 07/18/20 10:09 Dose: 20 mg Documented by: Glucagon () 1 mg IM .X1 PRN PRN Reason: Hypoglycemia Guaifenesin (Robitussin) 10 ml GT Q6 [facility] Last Admin: 07/18/20 10:10 Dose: 10 ml Documented by: Sodium Chloride () 250 mls @ 15 mls/hr IV .[id number] PRN PRN Reason: Additional IVPB Infusion Last Admin: 07/17/20 21:45 Dose: 15 mls/hr Documented by: Propofol (Diprivan) 1,000 mg in 100 mls @ 7.518 mls/hr CONT INF .Q12H [facility]; Protocol Last Admin: 07/18/20 13:07 Dose: Not Given Documented by: Fentanyl Citrate 1,000 mcg/ (Sodium Chloride) 100 mls @ 5 mls/hr CONT INF .Q20H [facility]; Protocol Last Titration: 07/18/20 12:00 Dose: 200 mcg/hr, 20 mls/hr Documented by: Enteral Nutritional Formula (Vital Af 1.2 Wong Liquid) 1,000 mls @ 65 mls/hr GT .[id number] [facility] Last Admin: 07/18/20 02:39 Dose: 65 mls/hr Documented by: Vasopressin 20 units/ Sodium (Chloride) 25 mls @ 3 mls/hr IV .Q8H20M [facility] Last Infusion: 07/18/20 12:00 Dose: 0.04 units/min, 3 mls/hr Documented by: Phenylephrine HCl 40 mg/ (Sodium Chloride) 250 mls @ 3.75 mls/hr CONT INF .Q6 6H40M [facility]; Protocol Last Titration: 07/18/20 12:00 Dose: 30 mcg/min, 11.3 mls/hr Documented by: Norepinephrine Bitartrate 16 (mg/ Sodium Chloride) 250 mls @ 4.688 mls/hr CONT INF .[id number] [facility]; Protocol Last Titration: 07/18/20 12:00 Dose: 30 mcg/min, 28.1 mls/hr Documented by: Vancomycin IV Pharmacy to Dose (1 ea/ Sodium Chloride) 500 mls @ 250 mls/hr IV X1 PRN; Protocol PRN Reason: Rx to Dose Meropenem 500 mg/ Sodium (Chloride) 60 mls @ 100 mls/hr IV Q12 [facility] Last Admin: 07/18/20 13:07 Dose: 100 mls/hr Documented by: Micafungin Sodium 100 mg/ (Dextrose) 105 mls @ 100 mls/hr IV Q24 [facility] Insulin Glargine (Lantus (Bkc)) 100 units SC BID [facility] Last Admin: 07/18/20 11:12 Dose: 100 u Documented by: Insulin Human Lispro (Humalog Kwikpen ([facility])) 0 unit SC Q6H [facility]; Protocol Last Admin: 07/18/20 12:04 Dose: Not Given Documented by: Nystatin (Mycostatin Powder) 1 applic TOPICAL 4X/DAY PRN PRN; Protocol PRN Reason: SKIN Last Admin: 07/17/20 05:43 Dose: 1 applicatio Documented by: Ondansetron HCl (Zofran) 4 mg IV Q6H PRN PRN PRN Reason: NAUSEA/VOMITING Last Admin: 07/11/20 11:13 Dose: 4 mg Documented by: Senna/Docusate Sodium (Senokot-S, Brittney-Colace) 2 tablet GT BID [facility] Last Admin: 07/18/20 10:09 Dose: Not Given Documented by: Sertraline HCl (Zoloft) 100 mg GT DAILY [facility] Last Admin: 07/18/20 10:10 Dose: 100 mg Documented by: Sodium Chloride () 10 - 40 ml IV UD PRN PRN Reason: SALINE FLUSH Last Admin: 07/18/20 05:39 Dose: 30 ml Documented by: Sodium Chloride ([place] Nasal [place]) 2 spray NASAL Q2H PRN PRN Reason: NASAL DRYNESS Last Admin: 07/09/20 21:40 Dose: 2 spray Documented by: Vancomycin HCl () 125 mg PO Q6 [facility] Last Admin: 07/18/20 10:10 Dose: 125 mg Documented by: Medical Necessity - Tobacco Use Smoking Status: Never smoker Assessment/Plan All Active Problems (Last Reviewed 01/22/20 @ 15:[address] Philipp Ybarra MD) ALICIA (acute kidney injury) (Acute) Pneumonia due to COVID-19 virus (Acute) Acute renal failure Covid pneumonia severe Respiratory failure, currently on ventilator remains on pressors however cr is better BUN remains high urine output picked up WBC is higher no plans for HD as per family
--- NOTE | 2020-07-18 13:42 | PCM.PN.ID ---
Patient Problems: Active and Suspected Problems (Last Reviewed 01/22/20 @ 15:[address] Philipp Ybarra MD) ALICIA (acute kidney injury) (Acute) Subjective: Fever and then hypothermia overnight. BP improved. - Physical Exam Vitals/I&O's: Vital Signs Temp Pulse Resp BP Pulse Ox 95.7 F L 96 15 139/57 H 95 07/18/20 13:00 07/18/20 13:00 07/18/20 13:00 07/18/20 13:15 07/18/20 13:00 Oxygen Flow Rate (L/min) 10 Oxygen Delivery Method Mechanical Ventilator Weight: 137.6 kg Body Mass Index (BMI) 48.9 Finger Stick Blood Glucose 88 Intake and Output for Last 24 Hours 07/16/20 07/17/20 07/18/20 23:59 23:59 23:59 Intake Total 4049.11 / 4182.71 5208.00 / 5297.57 2703.41 / 2703.41 Output Total 1095 / 1095 1270 / 1270 650 / 650 Balance 2954.11 / 3087.71 3938.00 / 4027.57 2053.41 / 2053.41 General: Non-Cooperative Lungs: Rhonchi - mild Cardiovascular: Regular rate, Regular Rhythm Abdomen: Soft, Non Tender, Non-Distended Skin: No rashes Microbiology Past 72 Hours 07/16/20 10:05 Sputum, Induced/Lukens Gram Stain - Final 07/16/20 10:05 Sputum, Induced/Lukens Respiratory Culture - Final Sheryl albicans 07/16/20 09:10 Blood Culture (Wb) - Line Draw Blood Culture - Preliminary No growth in 48 hours. 07/16/20 08:50 Urine Catheter - Hightower Urine Culture - Final Sheryl albicans Laboratory Results 07/17/20 18:13: POC Glucose 362 H 07/17/20 20:08: POC Glucose 347 H 07/18/20 02:29: POC Glucose 257 H 07/18/20 05:10: POC Glucose 243 H 07/18/20 05:27: Random Vancomycin 14.5 07/18/20 05:27: Procalcitonin 0.74 H 07/18/20 05:27: WBC 76.7 H*, RBC 2.80 L, Hgb 7.4 L, Hct 23.4 L, MCV 83.6, MCH 26.4 L, MCHC 31.6 L, RDW Std Deviation 49.4 H, RDW Coeff of Rahel 16.6 H, Plt Count 197, MPV 11.7, Neut % (Auto) Not Reportable, Absolute Neuts (auto) 61.3 H, Absolute Lymphs (auto) 5.37 H, Total Counted 100, Neutrophils % (Manual) 76 H, Band Neutrophils % 4, Lymphocytes % (Manual) 7 L, Monocytes % (Manual) 9, Metamyelocytes % 2 H, Myelocytes % 2 H, Nucleated RBCs/100 WBC 2, Differential Comment , Diff Path Review May foll, Platelet Estimate ADEQUATE, Polychromasia 1+, Hypochromasia 3+, Microcytosis 3+, Macrocytosis 1+, Schistocytes RARE 07/18/20 05:27: PT 17.7 H, INR 1.5, APTT 24.4 07/18/20 05:27: Sodium 140, Potassium 4.8, Chloride 111 H, Carbon Dioxide 23.0, Anion Gap 6, BUN 128 H*, Creatinine 2.80 H, Estim Creat Clear Calc 14.58, Est GFR (MDRD) Af Amer 21 L, Est GFR (MDRD) Non-Af 18 L, BUN/Creatinine Ratio 45.7 H, Glucose 253 H, Calcium 7.4 L 07/18/20 10:50: Blood Type O POSITIVE, Antibody Screen NEGATIVE, Crossmatch See Detail 07/18/20 11:10: POC Glucose 274 H Current Medications Acetaminophen (Tylenol Liquid) 650 mg GT Q6H PRN PRN PRN Reason: Pain Score 1-10/Temp > 100.7 F Last Admin: 07/18/20 02:44 Dose: 650 mg Documented by: Albuterol Sulfate (Proair Hfa (Sp) Surgery/Vent Pts) 1 puff INHALATION Q2H PRN PRN PRN Reason: SHORTNESS OF BREATH/WHEEZING Atorvastatin Calcium (Lipitor) 20 mg GT QHS SUNNY Last Admin: 07/17/20 20:12 Dose: 20 mg Documented by: Chlorhexidine Gluconate () 15 ml PO BID SUNNY Last Admin: 07/18/20 10:09 Dose: 15 ml Documented by: Dextrose (D50w Syringe) 0 gm IV X1 PRN; Protocol PRN Reason: Hypoglycemia Famotidine (Pepcid) 20 mg GT DAILY [facility] Last Admin: 07/18/20 10:09 Dose: 20 mg Documented by: Glucagon () 1 mg IM .X1 PRN PRN Reason: Hypoglycemia Guaifenesin (Robitussin) 10 ml GT Q6 [facility] Last Admin: 07/18/20 10:10 Dose: 10 ml Documented by: Sodium Chloride () 250 mls @ 15 mls/hr IV .[id number] PRN PRN Reason: Additional IVPB Infusion Last Admin: 07/17/20 21:45 Dose: 15 mls/hr Documented by: Propofol (Diprivan) 1,000 mg in 100 mls @ 7.518 mls/hr CONT INF .Q12H SUNNY; Protocol Last Admin: 07/18/20 13:07 Dose: Not Given Documented by: Fentanyl Citrate 1,000 mcg/ (Sodium Chloride) 100 mls @ 5 mls/hr CONT INF .Q20H [facility]; Protocol Last Titration: 07/18/20 13:00 Dose: 200 mcg/hr, 20 mls/hr Documented by: Enteral Nutritional Formula (Vital Af 1.2 Wong Liquid) 1,000 mls @ 65 mls/hr GT .[id number] [facility] Last Admin: 07/18/20 02:39 Dose: 65 mls/hr Documented by: Vasopressin 20 units/ Sodium (Chloride) 25 mls @ 3 mls/hr IV .[id number] [facility] Last Infusion: 07/18/20 13:00 Dose: 0.04 units/min, 3 mls/hr Documented by: Phenylephrine HCl 40 mg/ (Sodium Chloride) 250 mls @ 3.75 mls/hr CONT INF .[id number] [facility]; Protocol Last Titration: 07/18/20 13:15 Dose: 10 mcg/min, 3.8 mls/hr Documented by: Norepinephrine Bitartrate 16 (mg/ Sodium Chloride) 250 mls @ 4.688 mls/hr CONT INF .[id number] [facility]; Protocol Last Titration: 07/18/20 13:00 Dose: 30 mcg/min, 28.1 mls/hr Documented by: Vancomycin IV Pharmacy to Dose (1 ea/ Sodium Chloride) 500 mls @ 250 mls/hr IV X1 PRN; Protocol PRN Reason: Rx to Dose Meropenem 500 mg/ Sodium (Chloride) 60 mls @ 100 mls/hr IV Q12 [facility] Last Admin: 07/18/20 13:07 Dose: 100 mls/hr Documented by: Micafungin Sodium 100 mg/ (Dextrose) 105 mls @ 100 mls/hr IV Q24 [facility] Insulin Glargine (Lantus (Bk)) 100 units SC BID [facility] Last Admin: 07/18/20 11:12 Dose: 100 u Documented by: Insulin Human Lispro (Humalog Kwikpen ([facility])) 0 unit SC Q6H [facility]; Protocol Last Admin: 07/18/20 12:04 Dose: Not Given Documented by: Nystatin (Mycostatin Powder) 1 applic TOPICAL 4X/DAY PRN PRN; Protocol PRN Reason: SKIN Last Admin: 07/17/20 05:43 Dose: 1 applicatio Documented by: Ondansetron HCl (Zofran) 4 mg IV Q6H PRN PRN PRN Reason: NAUSEA/VOMITING Last Admin: 07/11/20 11:13 Dose: 4 mg Documented by: Senna/Docusate Sodium (Senokot-S, Brittney-Colace) 2 tablet GT BID [facility] Last Admin: 07/18/20 10:09 Dose: Not Given Documented by: Sertraline HCl (Zoloft) 100 mg GT DAILY [facility] Last Admin: 07/18/20 10:10 Dose: 100 mg Documented by: Sodium Chloride () 10 - 40 ml IV UD PRN PRN Reason: SALINE FLUSH Last Admin: 07/18/20 05:39 Dose: 30 ml Documented by: Sodium Chloride ([place] Nasal [place]) 2 spray NASAL Q2H PRN PRN Reason: NASAL DRYNESS Last Admin: 07/09/20 21:40 Dose: 2 spray Documented by: Vancomycin HCl () 125 mg PO Q6 [facility] Last Admin: 07/18/20 10:10 Dose: 125 mg Documented by: Medical Necessity - Tobacco Use Smoking Status: Never smoker Route of nutrition/ use of supplements: [] Nutritional Intake: [] IV Site: [] Hightower Catheter: [] - Assessment/Plan Antibiotics: [] Assessment/Plan: [] covid - receiving remdesivir and dexamethasone, also was given plasma. Fever last night. Remains on pressors. O2 improved. Wbc cont to worsen. On empiric vanc/riya/po vanc. Cdiff was neg, diarrhea resolved. Sputum and urine with yeast, will add micafungin. Will follow. D/w Dr. Jameson.
[2020-07-18 16:46] LABS: Bedside Glucose 242 mg/dL (70-110)
[2020-07-18] MEDS: Norepinephrine 16 mg/250 mL 0.9% NS 23.4 MG CONT INF (17:00)
[2020-07-18] MEDS: Atorvastatin Calcium 20 MG Tablet GT (20:49)
[2020-07-18 22:50] LABS: Bedside Glucose 247 mg/dL (70-110)
[2020-07-19] VITALS (52 sets, daily range): BP systolic 96–178; BP diastolic 44–99; PULSE 103–140; RESP 12–38; TEMP 37.2–38.4; O2SAT 81–100
[2020-07-19 00:36] LABS: Bedside Glucose 252 mg/dL (70-110)
[2020-07-19] MEDS: Norepinephrine 16 mg/250 mL 0.9% NS 14.1 MG CONT INF (02:58)
[2020-07-19] MEDS: 0.9% Saline Lock 10 ML Syringe IV ×2 (03:57→05:27)
[2020-07-19] MEDS: guaiFENesin 10 ML UDC (200MG/10ML) GT ×3 (05:10→17:54)
[2020-07-19] MEDS: Insulin Lispro 100 UNIT/ML INSULN.PEN SC ×2 (05:10→10:32)
[2020-07-19 05:41] LABS: Bedside Glucose 239 mg/dL (70-110)
[2020-07-19 06:30] LABS: Anion Gap 8 (5-15); BUN 121 mg/dL (7-18); BUN/Creat Ratio 61.1 RATIO (10-20); Calcium,Total 7.7 mg/dL (8.5-10.1); Chloride 113 mmol/L (98-107); Creatinine, Serum 1.98 mg/dL (0.55-1.02); EST Glomerular Filtration Rate 26 mL/min (>60); Est Glom Filt Rate - Afr Amer 32 mL/min (>60); Estimated Creatinine Clearance 20.61 ml/min; Glucose 229 mg/dL (74-106); Sodium Level 143 mmol/L (136-145)
--- NOTE | 2020-07-19 06:46 | PN_ITS ---
Subjective: Patient did okay overnight. Pressor requirements have significantly improved following 2 units of blood transfusion. Patient currently only requiring Levophed at 15 mics. Patient was following commands this morning and wiggling toes. Patient does not follow all commands though. Patient did have a significant desaturation episode last evening following rolling associated with cleaning up after a bowel movement. However, patient has made it back to her baseline this morning. No fever was noted overnight. General: Alert, Confused, Disoriented, - - Follow some commands. Morbidly obese. HEENT: Atraumatic, PERRLA, EOMI, Normocephalic, - - Slight scleral injection without icterus Oral: Moist Mucosa, No Gingival or Mucosal Lesions/ Ulcerations Neck: Supple, No JVD, No Nodes, Trachea Midline Lungs: No rhonchi, No wheeze, Diminished, Rales - Right base, - - Symmetric expansion Cardiovascular: Normal S1, Normal S2, No murmurs, No rub noted, No Gallop, Tachycardic Abdomen: Bowel Sounds Present, Soft, Non Tender, Non-Distended, Obese Extremities: No clubbing, No cyanosis, Edema, - - Right arm hematoma appears to be improved with induration. Musculoskeletal: No Tenderness to Palpation of Joints or Extremities Lymphatic: No Cervical, Supraclavicular, or Inguinal Adenopathy Neurological: Cranial nerves II-XII grossly intact, Neuro grossly intact Psych/Mental Status: Flat Affect Vital Signs Temp Pulse Resp BP Pulse Ox 37.3 C H 105 H 18 121/56 H 91 07/19/20 06:00 07/19/20 06:00 07/19/20 06:00 07/19/20 06:00 07/19/20 06:00 Oxygen Flow Rate (L/min) 10 Oxygen Delivery Method Mechanical Ventilator Weight: 137.8 kg Body Mass Index (BMI) 48.9 Finger Stick Blood Glucose 88 Intake and Output for Last 24 Hours 07/17/20 07/18/20 07/19/20 23:59 23:59 23:59 Intake Total 5208.00 / 5297.57 4957.02 / 5000.55 1203.90 / 1203.90 Output Total 1270 / 1270 1500 / 1500 400 / 400 Balance 3938.00 / 4027.57 3457.02 / 3500.55 803.90 / 803.90 Labs (Last 48 Hours) 07/17/20 07/17/20 07/17/20 00:19 00:22 05:30 WBC RBC Hgb Hct MCV MCH MCHC RDW Std Deviation RDW Coeff of Rahel Plt Count MPV Neut % (Auto) Absolute Neuts (auto) Absolute Lymphs (auto) Total Counted Neutrophils % (Manual) Band Neutrophils % Lymphocytes % (Manual) Monocytes % (Manual) Metamyelocytes % Myelocytes % Nucleated RBCs/100 WBC Differential Comment Diff Path Review Reviewed Platelet Estimate Polychromasia Hypochromasia Microcytosis Macrocytosis Schistocytes PT INR APTT Sodium Potassium Chloride Carbon Dioxide Anion Gap BUN Creatinine Estim Creat Clear Calc Est GFR (MDRD) Af Amer Est GFR (MDRD) Non-Af BUN/Creatinine Ratio Glucose Calcium Procalcitonin Random Vancomycin POC Glucose 456 H* 405 H Blood Type Antibody Screen Crossmatch 07/17/20 07/17/20 07/17/20 12:48 18:13 20:08 WBC RBC Hgb Hct MCV MCH MCHC RDW Std Deviation RDW Coeff of Rahel Plt Count MPV Neut % (Auto) Absolute Neuts (auto) Absolute Lymphs (auto) Total Counted Neutrophils % (Manual) Band Neutrophils % Lymphocytes % (Manual) Monocytes % (Manual) Metamyelocytes % Myelocytes % Nucleated RBCs/100 WBC Differential Comment Diff Path Review Platelet Estimate Polychromasia Hypochromasia Microcytosis Macrocytosis Schistocytes PT INR APTT Sodium Potassium Chloride Carbon Dioxide Anion Gap BUN Creatinine Estim Creat Clear Calc Est GFR (MDRD) Af Amer Est GFR (MDRD) Non-Af BUN/Creatinine Ratio Glucose Calcium Procalcitonin Random Vancomycin POC Glucose 418 H 362 H 347 H Blood Type Antibody Screen Crossmatch 07/18/20 07/18/20 07/18/20 02:29 05:10 05:27 WBC RBC Hgb Hct MCV MCH MCHC RDW Std Deviation RDW Coeff of Rahel Plt Count MPV Neut % (Auto) Absolute Neuts (auto) Absolute Lymphs (auto) Total Counted Neutrophils % (Manual) Band Neutrophils % Lymphocytes % (Manual) Monocytes % (Manual) Metamyelocytes % Myelocytes % Nucleated RBCs/100 WBC Differential Comment Diff Path Review Platelet Estimate Polychromasia Hypochromasia Microcytosis Macrocytosis Schistocytes PT INR APTT Sodium Potassium Chloride Carbon Dioxide Anion Gap BUN Creatinine Estim Creat Clear Calc Est GFR (MDRD) Af Amer Est GFR (MDRD) Non-Af BUN/Creatinine Ratio Glucose Calcium Procalcitonin Random Vancomycin 14.5 POC Glucose 257 H 243 H Blood Type Antibody Screen Crossmatch 07/18/20 07/18/20 07/18/20 05:27 05:27 05:27 WBC 76.7 H* RBC 2.80 L Hgb 7.4 L Hct 23.4 L MCV 83.6 MCH 26.4 L MCHC 31.6 L RDW Std Deviation 49.4 H RDW Coeff of Rahel 16.6 H Plt Count 197 MPV 11.7 Neut % (Auto) Not Reportable Absolute Neuts (auto) 61.3 H Absolute Lymphs (auto) 5.37 H Total Counted 100 Neutrophils % (Manual) 76 H Band Neutrophils % 4 Lymphocytes % (Manual) 7 L Monocytes % (Manual) 9 Metamyelocytes % 2 H Myelocytes % 2 H Nucleated RBCs/100 WBC 2 Differential Comment Diff Path Review May foll Platelet Estimate ADEQUATE Polychromasia 1+ Hypochromasia 3+ Microcytosis 3+ Macrocytosis 1+ Schistocytes RARE PT 17.7 H INR 1.5 APTT 24.4 Sodium Potassium Chloride Carbon Dioxide Anion Gap BUN Creatinine Estim Creat Clear Calc Est GFR (MDRD) Af Amer Est GFR (MDRD) Non-Af BUN/Creatinine Ratio Glucose Calcium Procalcitonin 0.74 H Random Vancomycin POC Glucose Blood Type Antibody Screen Crossmatch 07/18/20 07/18/20 07/18/20 05:27 10:50 11:10 WBC RBC Hgb Hct MCV MCH MCHC RDW Std Deviation RDW Coeff of Rahel Plt Count MPV Neut % (Auto) Absolute Neuts (auto) Absolute Lymphs (auto) Total Counted Neutrophils % (Manual) Band Neutrophils % Lymphocytes % (Manual) Monocytes % (Manual) Metamyelocytes % Myelocytes % Nucleated RBCs/100 WBC Differential Comment Diff Path Review Platelet Estimate Polychromasia Hypochromasia Microcytosis Macrocytosis Schistocytes PT INR APTT Sodium 140 Potassium 4.8 Chloride 111 H Carbon Dioxide 23.0 Anion Gap 6 BUN 128 H* Creatinine 2.80 H Estim Creat Clear Calc 14.58 Est GFR (MDRD) Af Amer 21 L Est GFR (MDRD) Non-Af 18 L BUN/Creatinine Ratio 45.7 H Glucose 253 H Calcium 7.4 L Procalcitonin Random Vancomycin POC Glucose 274 H Blood Type O POSITIVE Antibody Screen NEGATIVE Crossmatch See Detail 07/18/20 07/18/20 07/18/20 15:33 20:19 23:23 WBC RBC Hgb Hct MCV MCH MCHC RDW Std Deviation RDW Coeff of Rahel Plt Count MPV Neut % (Auto) Absolute Neuts (auto) Absolute Lymphs (auto) Total Counted Neutrophils % (Manual) Band Neutrophils % Lymphocytes % (Manual) Monocytes % (Manual) Metamyelocytes % Myelocytes % Nucleated RBCs/100 WBC Differential Comment Diff Path Review Platelet Estimate Polychromasia Hypochromasia Microcytosis Macrocytosis Schistocytes PT INR APTT Sodium Potassium Chloride Carbon Dioxide Anion Gap BUN Creatinine Estim Creat Clear Calc Est GFR (MDRD) Af Amer Est GFR (MDRD) Non-Af BUN/Creatinine Ratio Glucose Calcium Procalcitonin Random Vancomycin POC Glucose 242 H 247 H 252 H Blood Type Antibody Screen Crossmatch 07/19/20 07/19/20 07/19/20 05:09 05:25 05:25 WBC Pending RBC Pending Hgb Pending Hct Pending MCV Pending MCH Pending MCHC Pending RDW Std Deviation Pending RDW Coeff of Rahel Pending Plt Count Pending MPV Neut % (Auto) Pending Absolute Neuts (auto) Pending Absolute Lymphs (auto) Total Counted Neutrophils % (Manual) Band Neutrophils % Lymphocytes % (Manual) Monocytes % (Manual) Metamyelocytes % Myelocytes % Nucleated RBCs/100 WBC Differential Comment Diff Path Review Platelet Estimate Polychromasia Hypochromasia Microcytosis Macrocytosis Schistocytes PT INR APTT Sodium 143 Potassium 5.0 Chloride 113 H Carbon Dioxide 22.0 Anion Gap 8 BUN 121 H* Creatinine 1.98 H Estim Creat Clear Calc 20.61 Est GFR (MDRD) Af Amer 32 L Est GFR (MDRD) Non-Af 26 L BUN/Creatinine Ratio 61.1 H Glucose 229 H Calcium 7.7 L Procalcitonin Random Vancomycin POC Glucose 239 H Blood Type Antibody Screen Crossmatch Microbiology 07/16/20 10:05 Sputum, Induced/Lukens Gram Stain - Final 07/16/20 10:05 Sputum, Induced/Lukens Respiratory Culture - Final Sheryl albicans 07/16/20 09:10 Blood Culture (Wb) - Line Draw Blood Culture - Preliminary No growth in 48 hours. 07/16/20 08:50 Urine Catheter - Hightower Urine Culture - Final Sheryl albicans Medical Necessity - Tobacco Use Smoking Status: Never smoker Assessment/Plan All Active Problems (Last Reviewed 01/22/20 @ 15:[address] Philipp Ybarra MD) ALICIA (acute kidney injury) (Acute) Pneumonia due to COVID-19 virus (Acute) RECOMMENDATIONS: 1. Wean PEEP and FiO2 per orders to maintain saturations at or above 90%. 2. Completed Decadron, Remdesevir. Off of anticoagulation secondary to hematoma associated with PICC line 3. Continue broad-spectrum antibiotics. Cultures growing Sheryl, so micafungin has been initiated by ID 4. Continue Lantus and sliding scale. Additional insulin as necessary. 5. Wean Levophed to maintain a mean arterial pressure at or above 65 mmHg. 6. Continue appropriate GI prophylaxis. IMPRESSIONS: 1. Acute hypoxemic respiratory failure secondary to ARDS due to COVID pneumo luba The patient initially presented to the hospital with symptoms concerning for coronavirus infection and subsequently tested positive on July 08. Although initially she was on very minimal supplemental oxygen, the patient decompensated from a respiratory perspective over the course of the ensuing days. Chest x-ray revealed progressive bilateral infiltrates. Although attempts were made to utilize noninvasive positive pressure ventilatory support, the patient continued to decompensate from a clinical perspective and had to be intubated on the morning of July 12. Patient completed courses of Decadron and Remdesevir. The patient also received convalescent plasma on July 11. Patient was significant improvement in oxygenation over the last 24 hours. Patient may qualify for spontaneous breathing and awakening trials in the near future. 2. Distributive shock Unclear etiology. Some concern for the development of superimposed bacterial infection despite Zosyn therapy. Patient continues to have worsening leukocytosis, but pressor agents are improving with change in antibiotics. Pressor requirements has significantly improved. Patient does have Sheryl growing from multiple sources, so micafungin was initiated. Patient appears to be responding as there is no fever noted. 3. Acute on chronic kidney disease Slowly improving. Likely prerenal in etiology and related to ischemic ATN in the setting #2. Continue current supportive measures. Continue vasopressor support to maintain hemodynamic stability. Continue to hold diuretics with increasing creatinine. Nephrology evaluated the patient and stated she would be a poor candidate for hemodialysis at the current time. Will need to discuss with the patient's family moving forward as current condition may be unsustainable. Remaining electrolytes appear to be stable at this time. Family is stated that they would not agree to dialysis under any condition. BUN and creatinine appear to have stabilized and urine output is improving 4. History of nonischemic cardiomyopathy/heart failure with reduced ejection fraction Diuretic regimen remains on hold due to hemodynamic instability and acute kidney injury. Recommend conservative use of fluids, given underlying depressed ejection fraction. Possibly attempt Lasix therapy once off of pressor agents 5. Morbid obesity/diabetes mellitus/chronic kidney disease/depression/high risk for sleep disordered breathing/CODE STATUS Complicates care, management, recovery and prognosis. Continue sliding scale insulin regimen. Okay to continue tube feeds today from my perspective. The patient remains a full code, following recent conversation with the patient. 6. Right upper extremity hematoma Significant hematoma at the PICC line insertion site. Anticoagulation has been held. Will monitor arm circumference. Will order 2 units of packed red blood cells to see if this will help with hypotension and cardiac delivery 7. Leukocytosis Unclear etiology. Patient appears to be having a leukemoid reaction and manual differential suggests a neutrophilic predominance without bandemia. Patient does have some immature cell types, but does not appear to have obvious leukemia. TIME: 35 minutes of critical care time, independent of procedures, was spent addressing the patient's acute hypoxemic respiratory failure, ARDS secondary to COVID pneumonia, distributive shock, acute on chronic kidney disease, history of congestive heart failure, review of all data and collaboration with care team. (5:30 AM to 6:30 AM) [id number] Critical care first hour
[2020-07-19 07:26] LABS: Lymphocyte 6 % (19-41); Metamyelocyte 3 % (0-1); Monocyte 9 % (0-10); Neutrophil-Band 1 % (0-5); Neutrophil-Segmented 81 % (47-70); Nucleated Red Bld Cells,Manual 3 % (0-5); Platelet Estimate ADEQUATE (ADEQ); Total Cells Counted 100 (MANUAL DIFF)
[2020-07-19 07:27] LABS: Macrocytosis 2+; Polychromasia 1+; Red Cell Morphology N CHROM NORMAL (NORM C&C)
[2020-07-19 08:13] LABS: Hematocrit 29.4 % (37-47); Hemoglobin 9.5 g/dL (12.0-15.0); Mean Corp Hgb Conc 32.3 g/dL (32-36); Mean Corpuscular Hgb 27.8 pg (27.0-32.0); POSITIVE COUNT YES; POSITIVE DIFFERENTIAL YES; POSITIVE MORPHOLOGY YES; Platelet Count 119 K/mm3 (150-450); RBC Distribution Width SD 47.9 fl (35.1-43.9); Red Blood Count 3.42 M/mm3 (4.2-5.4)
[2020-07-19 08:18] LABS: Differential Indicated MANUAL DIFF; White Blood Count 62.2 K/mm3 (4.4-11.0)
[2020-07-19 08:20] LABS: Absolute Lymphocyte Count 3.73 X10^3/uL (0.83-4.51)
--- NOTE | 2020-07-19 09:00 | PN_ITS ---
Patient Problems: Active and Suspected Problems (Last Reviewed 01/22/20 @ 15:[address] Philipp Ybarra MD) ALICIA (acute kidney injury) (Acute) Subjective: Chief complaint: Follow-up after admission for acute bilateral viral COVID-19 pneumonia complicated by acute hypoxic respiratory failure secondary to ARDS, developed acute kidney injury on stage III chronic kidney disease with uremia found to have disruptive shock. She developed left upper extremity hematoma due to PICC line and being on IV heparin drip, found to have acute blood loss anemia. Patient seen and examined. No acute events overnight. Patient is alert, spontaneous eye opening, not following commands. Her pressors requirements significantly improved after she received blood transfusion. She has been afebrile, tachycardic, blood pressure is maintained on vasopressors with decreasing dosage, remained on mechanical ventilation with FiO2 50% and PEEP of 5. - Physical Exam Vitals/I&O's: Vital Signs Temp Pulse Resp BP Pulse Ox 99.4 F H 112 H 25 H 132/60 H 91 07/19/20 07:00 07/19/20 07:08 07/19/20 07:08 07/19/20 07:00 07/19/20 07:08 Oxygen Flow Rate (L/min) 10 Oxygen Delivery Method Mechanical Ventilator Weight: 303 lb 12.752 oz Body Mass Index (BMI) 48.9 Finger Stick Blood Glucose 88 Intake and Output for Last 24 Hours 07/17/20 07/18/20 07/19/20 23:59 23:59 23:59 Intake Total 5208.00 / 5297.57 4957.02 / 5000.55 1573.00 / 1573.00 Output Total 1270 / 1270 1500 / 1500 670 / 670 Balance 3938.00 / 4027.57 3457.02 / 3500.55 903.00 / 903.00 General: Alert, Lethargic, - - Not following commands, on mechanical ventilation. HEENT: Atraumatic, PERRLA, EOMI, Normocephalic Oral: Moist Mucosa, No Gingival or Mucosal Lesions/ Ulcerations Neck: Supple, No JVD, Negative Carotid Bruits, Trachea Midline, Thyroid Normal Size and Texture Lungs: No rhonchi, No wheeze, No rales, Diminished, - - Decreased breath sounds bilateral, crackles at the right base. Cardiovascular: Regular rate, Regular Rhythm, Normal S1, Normal S2, PMI Normal, Tachycardic Abdomen: Bowel Sounds Present, Soft, Non Tender, Non-Distended, No Hepato- splenomegaly, Obese Extremities: No clubbing, No cyanosis, Edema Skin: No rashes, No breakdown Lymphatic: No Cervical, Supraclavicular, or Inguinal Adenopathy Neurological: Cranial nerves II-XII grossly intact, Neuro grossly intact Psych/Mental Status: - - Unable to assess, patient is lethargic and mechanical ventilation. Microbiology Past 72 Hours 07/16/20 10:05 Sputum, Induced/Lukens Gram Stain - Final 07/16/20 10:05 Sputum, Induced/Lukens Respiratory Culture - Final Sheryl albicans 07/16/20 09:10 Blood Culture (Wb) - Line Draw Blood Culture - Preliminary No growth in 48 hours. 07/16/20 08:50 Urine Catheter - Hightower Urine Culture - Final Sheryl albicans Laboratory Results 07/18/20 10:50: Blood Type O POSITIVE, Antibody Screen NEGATIVE, Crossmatch See Detail 07/18/20 11:10: POC Glucose 274 H 07/18/20 15:33: POC Glucose 242 H 07/18/20 20:19: POC Glucose 247 H 07/18/20 23:23: POC Glucose 252 H 07/19/20 05:09: POC Glucose 239 H 07/19/20 05:25: WBC 62.2 H*, RBC 3.42 L, Hgb 9.5 L, Hct 29.4 L, MCV 86.0, MCH 27.8, MCHC 32.3, RDW Std Deviation 47.9 H, RDW Coeff of Rahel 16.0 H, Plt Count 119 L, MPV 13.0 H, Neut % (Auto) Not Reportable, Absolute Neuts (auto) 51.0 H, Absolute Lymphs (auto) 3.73, Total Counted 100, Neutrophils % (Manual) 81 H, Band Neutrophils % 1, Lymphocytes % (Manual) 6 L, Monocytes % (Manual) 9, Metamyelocytes % 3 H, Nucleated RBCs/100 WBC 3, Diff Path Review March, Platelet Estimate ADEQUATE, RBC Morphology N CHROM, Polychromasia 1+, Macrocytosis 2+ 07/19/20 05:25: Sodium 143, Potassium 5.0, Chloride 113 H, Carbon Dioxide 22.0, Anion Gap 8, BUN 121 H*, Creatinine 1.98 H, Estim Creat Clear Calc 20.61, Est GFR (MDRD) Af Amer 32 L, Est GFR (MDRD) Non-Af 26 L, BUN/Creatinine Ratio 61.1 H , Glucose 229 H, Calcium 7.7 L Current Medications Acetaminophen (Tylenol Liquid) 650 mg GT Q6H PRN PRN PRN Reason: Pain Score 1-10/Temp > 100.7 F Last Admin: 07/18/20 23:25 Dose: 650 mg Documented by: Albuterol Sulfate (Proair Hfa (Sp) Surgery/Vent Pts) 1 puff INHALATION Q2H PRN PRN PRN Reason: SHORTNESS OF BREATH/WHEEZING Atorvastatin Calcium (Lipitor) 20 mg GT QHS [facility] Last Admin: 07/18/20 20:49 Dose: 20 mg Documented by: Chlorhexidine Gluconate () 15 ml PO BID [facility] Last Admin: 07/18/20 20:49 Dose: 15 ml Documented by: Dextrose (D50w Syringe) 0 gm IV X1 PRN; Protocol PRN Reason: Hypoglycemia Famotidine (Pepcid) 20 mg GT DAILY [facility] Last Admin: 07/18/20 10:09 Dose: 20 mg Documented by: Glucagon () 1 mg IM .X1 PRN PRN Reason: Hypoglycemia Guaifenesin (Robitussin) 10 ml GT Q6 [facility] Last Admin: 07/19/20 05:10 Dose: 10 ml Documented by: Sodium Chloride () 250 mls @ 15 mls/hr IV .[id number] PRN PRN Reason: Additional IVPB Infusion Last Infusion: 07/19/20 03:30 Dose: 15 mls/hr Documented by: Fentanyl Citrate 1,000 mcg/ (Sodium Chloride) 100 mls @ 5 mls/hr CONT INF .Q20H [facility]; Protocol Last Titration: 07/19/20 07:00 Dose: 200 mcg/hr, 20 mls/hr Documented by: Enteral Nutritional Formula (Vital Af 1.2 Wong Liquid) 1,000 mls @ 65 mls/hr GT .[id number] [facility] Last Admin: 07/18/20 21:21 Dose: 65 mls/hr Documented by: Norepinephrine Bitartrate 16 (mg/ Sodium Chloride) 250 mls @ 4.688 mls/hr CONT INF .[id number] [facility]; Protocol Last Titration: 07/19/20 07:00 Dose: 15 mcg/min, 14.1 mls/hr Documented by: Vancomycin IV Pharmacy to Dose (1 ea/ Sodium Chloride) 500 mls @ 250 mls/hr IV X1 PRN; Protocol PRN Reason: Rx to Dose Meropenem 500 mg/ Sodium (Chloride) 60 mls @ 100 mls/hr IV Q12 [facility] Last Infusion: 07/19/20 00:10 Dose: Infused Documented by: Micafungin Sodium 100 mg/ (Dextrose) 105 mls @ 100 mls/hr IV Q24 [facility] Last Infusion: 07/18/20 15:18 Dose: Infused Documented by: Insulin Glargine (Lantus (Bkc)) 100 units SC BID [facility] Last Admin: 07/18/20 21:23 Dose: 100 u Documented by: Insulin Human Lispro (Humalog Kwikpen (Bk)) 0 unit SC Q6H [facility]; Protocol Last Admin: 07/19/20 05:10 Dose: 6 u Documented by: Nystatin (Mycostatin Powder) 1 applic TOPICAL 4X/DAY PRN PRN; Protocol PRN Reason: SKIN Last Admin: 07/17/20 05:43 Dose: 1 applicatio Documented by: Ondansetron HCl (Zofran) 4 mg IV Q6H PRN PRN PRN Reason: NAUSEA/VOMITING Last Admin: 07/11/20 11:13 Dose: 4 mg Documented by: Senna/Docusate Sodium (Senokot-S, Brittney-Colace) 2 tablet GT BID [facility] Last Admin: 07/18/20 20:51 Dose: Not Given Documented by: Sertraline HCl (Zoloft) 100 mg GT DAILY [facility] Last Admin: 07/18/20 10:10 Dose: 100 mg Documented by: Sodium Chloride () 10 - 40 ml IV UD PRN PRN Reason: SALINE FLUSH Last Admin: 07/19/20 05:27 Dose: 30 ml Documented by: Sodium Chloride ([place] Nasal [place]) 2 spray NASAL Q2H PRN PRN Reason: NASAL DRYNESS Last Admin: 07/09/20 21:40 Dose: 2 spray Documented by: Medical Necessity - Tobacco Use Smoking Status: Never smoker Assessment/Plan All Active Problems (Last Reviewed 01/22/20 @ 15:[address] Philipp Ybarra MD) ALICIA (acute kidney injury) (Acute) Pneumonia due to COVID-19 virus (Acute) This is a 69 years old female patient presented to the emergency room because of weakness, fatigue, mild shortness of breath and she was found to have acute bilateral COVID-19 pneumonia complicated by acute hypoxic respiratory failure due to ARDS. #1 acute hypoxic respiratory failure/ARDS: Remained on mechanical ventilation, oxygenation has been improving, she is down to FiO2 of 50% and PEEP of 5. It is secondary to COVID-19 pneumonia. She is only on IV Levophed, both vasopressin and phenylephrine discontinued. She is on IV fentanyl drip as well as propofol for sedation. WBC is improving. She is on IV vancomycin and meropenem and started on IV micafungin yesterday by infectious disease. IV heparin discontinued because of left upper extremity hematoma. Critical care on the case. Plan: Continue same treatment. #2 acute bilateral COVID-19 pneumonia: She completed IV Decadron and remdesivir and received 1 unit of convalescent plasma. She is on IV antibiotics as above. She is only on IV Levophed drip, blood pressure is maintained. WBC started to trend down. howed no growth. Repeat blood culture showed no growth in 48 hours. Sputum and urine culture revealed Sheryl albicans. Patient was started on IV micafungin. Respiratory panel for viruses were negative. Pneumococcal and Legionella antigen were negative. Plan to continue same treatment. #3 left upper forearm/left elbow hematoma: Due to PICC line and being on IV heparin drip. IV heparin discontinued.. Her platelet count is normal. INR is 1.5. Patient received blood transfusion. #4 acute blood loss anemia: It is combination of blood loss from the left upper extremity hematoma as well as hemodilution and acute illness. She received a total of 2 months of packed RBCs. Today hemoglobin is 9.5 g/dL. Plan to repeat CBC tomorrow morning. #5 disruptive/refractory shock: Attributed to sedatives as well as probable secondary bacterial pneumonia. This morning, she is only on IV Levophed drip. Both vasopressin and Pete-Synephrine discontinued. Blood pressure is improving still tachycardic, afebrile. Plan to wean off IV Levophed drip as tolerated. #6 Acute kidney injury on top of stage III chronic kidney disease/uremia: Baseline creatinine has been around 1.2 to 1.8 mg/dL. Kidney function continued to improve slowly, BUN is down to 121, today's creatinine is 1.98. atinine is 2.80, BUN is 128, both are worsening. Urine output started to improve. No plan for dialysis. #7 uncontrolled type 2 diabetes mellitus: Blood sugar remained in the range of 200s today, stabilized. It is multifactorial because of IV Decadron and acute illness. She is on Lantus 100 units twice daily as well as sliding scale. #8 chronic diastolic CHF/nonischemic cardiomyopathy: She is on statins. Diuretics, Coreg and lisinopril are on hold because of worsening kidney function as well as disruptive shock. #9 depression: Continue sertraline. #10 DVT prophylaxis: SCDs. This note was generated with [employer] dictation software. It may contain incorrect words, spelling, and punctuation that were not noted in checking the note before signing. Inpatient E&M: 10484 Subs Hosp L3
--- NOTE | 2020-07-19 09:42 | RAD_ITS ---
STUDY: X-RAY CHEST REASON FOR EXAM: Female, 69 years old. sob, covid positive pneumonia TECHNIQUE: AP COMPARISON: 07/12/2020 FINDINGS: Endotracheal tube is present with tip terminating 2 cm above the erin, similar. Enteric tube extends to the upper abdomen. There is a right arm PICC extending to the upper right atrium. Cardiac conduction device is stable. Improved aeration of the lungs since the prior study with diminished parenchymal opacities evident on the prior study. No sizable effusion. No pneumothorax. Normal size heart. Normal mediastinum and madan. Normal visualized pulmonary arteries. There is atherosclerotic calcification of the aortic arch with tortuosity. No acute bony process. There is no demonstrated abnormality of the visualized soft tissue structures of the upper abdomen. RAD/Chest 1 View (Portable) IMPRESSION: Favorable change. Significant clearing of bilateral multilobar pulmonary infiltrates. Electronically Signed: Jonathan Huynh MD ([place]) at 10:30 EDT , Service support ,
[2020-07-19] MEDS: Chlorhexidine 15 ML PO ×2 (10:22→21:34)
[2020-07-19] MEDS: Sertraline 100 MG Tablet GT (10:23)
[2020-07-19] MEDS: Senna/Docusate Sodium 1 Tablet 2 TABLET GT ×2 (10:23→21:38)
[2020-07-19] MEDS: Famotidine 20 MG Tablet GT (10:23)
[2020-07-19 10:46] LABS: Bedside Glucose 234 mg/dL (70-110)
--- NOTE | 2020-07-19 11:13 | CM.ED ---
Participated in interdisciplinary rounds this am. Patient remains intubated and on levo. + covid. Anticipating placement. Steve Lucia RN, CCM.
[2020-07-19] MEDS: Acetaminophen 650 MG/20 ML UDC GT ×2 (14:20→21:36)
[2020-07-19] MEDS: Vital AF 1.2 Cal Liquid 1,000 ML 65 ML GT (14:20)
[2020-07-19] MEDS: Furosemide 40 MG/4 ML Vial IV (14:20)
--- NOTE | 2020-07-19 15:40 | PN.RENAL_ITS ---
Patient Problems: Active and Suspected Problems (Last Reviewed 01/22/20 @ 15:[address] Philipp Ybarra MD) ALICIA (acute kidney injury) (Acute) Subjective: Patient wasn't examined today to limit COVID-19 exposure and spread and to preserve PPE Discussed with the patient's nurse. Patient is not off pressors Patient was given one dose of lasix FIO2 70% sedated with only fentanyl. following some commands - Physical Exam Vitals/I&O's: Vital Signs Temp Pulse Resp BP Pulse Ox 100.5 F H 127 H 29 H 121/54 H 91 07/19/20 12:00 07/19/20 15:25 07/19/20 13:10 07/19/20 13:00 07/19/20 13:10 Oxygen Flow Rate (L/min) 10 Oxygen Delivery Method Mechanical Ventilator Weight: 137.8 kg Body Mass Index (BMI) 48.9 Finger Stick Blood Glucose 88 Intake and Output for Last 24 Hours 07/17/20 07/18/20 07/19/20 23:59 23:59 23:59 Intake Total 5208.00 / 5297.57 4957.02 / 5000.55 2598.96 / 2598.96 Output Total 1270 / 1270 1500 / 1500 995 / 995 Balance 3938.00 / 4027.57 3457.02 / 3500.55 1603.96 / 1603.96 Microbiology Past 72 Hours 07/16/20 10:05 Sputum, Induced/Lukens Gram Stain - Final 07/16/20 10:05 Sputum, Induced/Lukens Respiratory Culture - Final Sheryl albicans 07/16/20 09:10 Blood Culture (Wb) - Line Draw Blood Culture - Preliminary No growth in 48 hours. 07/16/20 08:50 Urine Catheter - Hightower Urine Culture - Final Sheryl albicans Laboratory Results 07/18/20 10:50: Blood Type O POSITIVE, Antibody Screen NEGATIVE, Crossmatch See Detail 07/18/20 15:33: POC Glucose 242 H 07/18/20 20:19: POC Glucose 247 H 07/18/20 23:23: POC Glucose 252 H 07/19/20 05:09: POC Glucose 239 H 07/19/20 05:25: WBC 62.2 H*, RBC 3.42 L, Hgb 9.5 L, Hct 29.4 L, MCV 86.0, MCH 27.8, MCHC 32.3, RDW Std Deviation 47.9 H, RDW Coeff of Rahel 16.0 H, Plt Count 119 L, MPV 13.0 H, Neut % (Auto) Not Reportable, Absolute Neuts (auto) 51.0 H, Absolute Lymphs (auto) 3.73, Total Counted 100, Neutrophils % (Manual) 81 H, Band Neutrophils % 1, Lymphocytes % (Manual) 6 L, Monocytes % (Manual) 9, Metam yelocytes % 3 H, Nucleated RBCs/100 WBC 3, Diff Path Review March, Platelet Estimate ADEQUATE, RBC Morphology N CHROM, Polychromasia 1+, Macrocytosis 2+ 07/19/20 05:25: Sodium 143, Potassium 5.0, Chloride 113 H, Carbon Dioxide 22.0, Anion Gap 8, BUN 121 H*, Creatinine 1.98 H, Estim Creat Clear Calc 20.61, Est GFR (MDRD) Af Amer 32 L, Est GFR (MDRD) Non-Af 26 L, BUN/Creatinine Ratio 61.1 H , Glucose 229 H, Calcium 7.7 L 07/19/20 10:21: POC Glucose 234 H Current Medications Acetaminophen (Tylenol Liquid) 650 mg GT Q6H PRN PRN PRN Reason: Pain Score 1-10/Temp > 100.7 F Last Admin: 07/19/20 14:20 Dose: 650 mg Documented by: Albuterol Sulfate (Proair Hfa (Sp) Surgery/Vent Pts) 1 puff INHALATION Q2H PRN PRN PRN Reason: SHORTNESS OF BREATH/WHEEZING Atorvastatin Calcium (Lipitor) 20 mg GT QHS [facility] Last Admin: 07/18/20 20:49 Dose: 20 mg Documented by: Chlorhexidine Gluconate () 15 ml PO BID [facility] Last Admin: 07/19/20 10:22 Dose: 15 ml Documented by: Dextrose (D50w Syringe) 0 gm IV X1 PRN; Protocol PRN Reason: Hypoglycemia Famotidine (Pepcid) 20 mg GT DAILY [facility] Last Admin: 07/19/20 10:23 Dose: 20 mg Documented by: Glucagon () 1 mg IM .X1 PRN PRN Reason: Hypoglycemia Guaifenesin (Robitussin) 10 ml GT Q6 [facility] Last Admin: 07/19/20 10:32 Dose: 10 ml Documented by: Sodium Chloride () 250 mls @ 15 mls/hr IV .[id number] PRN PRN Reason: Additional IVPB Infusion Last Infusion: 07/19/20 03:30 Dose: 15 mls/hr Documented by: Fentanyl Citrate 1,000 mcg/ (Sodium Chloride) 100 mls @ 5 mls/hr CONT INF .Q20H [facility]; Protocol Last Admin: 07/19/20 15:00 Dose: 200 mcg/hr, 20 mls/hr Documented by: Enteral Nutritional Formula (Vital Af 1.2 Wong Liquid) 1,000 mls @ 65 mls/hr GT .[id number] [facility] Last Admin: 07/19/20 14:20 Dose: 65 mls/hr Documented by: Norepinephrine Bitartrate 16 (mg/ Sodium Chloride) 250 mls @ 4.688 mls/hr CONT INF .[id number] [facility]; Protocol Last Titration: 07/19/20 13:00 Dose: 0 mcg/min, 0 mls/hr Documented by: Vancomycin IV Pharmacy to Dose (1 ea/ Sodium Chloride) 500 mls @ 250 mls/hr IV X1 PRN; Protocol PRN Reason: Rx to Dose Meropenem 500 mg/ Sodium (Chloride) 60 mls @ 100 mls/hr IV Q12 [facility] Last Infusion: 07/19/20 10:54 Dose: Infused Documented by: Micafungin Sodium 100 mg/ (Dextrose) 105 mls @ 100 mls/hr IV Q24 [facility] Last Infusion: 07/19/20 11:53 Dose: Infused Documented by: Insulin Glargine (Lantus (Bkc)) 100 units SC BID [facility] Last Admin: 07/19/20 10:23 Dose: 100 u Documented by: Insulin Human Lispro (Humalog Kwikpen (Bkc)) 0 unit SC Q6H [facility]; Protocol Last Admin: 07/19/20 10:32 Dose: 6 u Documented by: Nystatin (Mycostatin Powder) 1 applic TOPICAL 4X/DAY PRN PRN; Protocol PRN Reason: SKIN Last Admin: 07/17/20 05:43 Dose: 1 applicatio Documented by: Ondansetron HCl (Zofran) 4 mg IV Q6H PRN PRN PRN Reason: NAUSEA/VOMITING Last Admin: 07/11/20 11:13 Dose: 4 mg Documented by: Senna/Docusate Sodium (Senokot-S, Brittney-Colace) 2 tablet GT BID [facility] Last Admin: 07/19/20 10:23 Dose: 2 tablet Documented by: Sertraline HCl (Zoloft) 100 mg GT DAILY [facility] Last Admin: 07/19/20 10:23 Dose: 100 mg Documented by: Sodium Chloride () 10 - 40 ml IV UD PRN PRN Reason: SALINE FLUSH Last Admin: 07/19/20 05:27 Dose: 30 ml Documented by: Sodium Chloride ([place] Nasal [place]) 2 spray NASAL Q2H PRN PRN Reason: NASAL DRYNESS Last Admin: 07/09/20 21:40 Dose: 2 spray Documented by: Medical Necessity - Tobacco Use Smoking Status: Never smoker Assessment/Plan All Active Problems (Last Reviewed 01/22/20 @ 15:[address] Philipp Ybarra MD) ALICIA (acute kidney injury) (Acute) Pneumonia due to COVID-19 virus (Acute) 1- ALICIA . likely covid-19 induced ATN Kidney function is improving. BUN is trending down but remains > 100. Cr is trending down Nonoliguric. Ok with PRN lasix Keep MAP > 65 No TEAM DRIVER if kidney function were to worsen as per Dr. Alvarez's note 2- Acute RF from COVID-19 pneumonia Vent support as per ICU team Ok with diuresis 3- COVID-19 pneumonia. Finished remdesivir Abx and antifungal treatment as per ID/ICU team 4- Septic shock from above. better. Off pressors Will defer hemodynamic support to ICU team Will continue to follow Please call if any question at [phone] Morena Nash MD
[2020-07-19 18:05] LABS: Bedside Glucose 105 mg/dL (70-110)
[2020-07-19] MEDS: Atorvastatin Calcium 20 MG Tablet GT (21:38)
[2020-07-20] VITALS (37 sets, daily range): BP systolic 110–141; BP diastolic 57–89; PULSE 89–131; RESP 14–33; TEMP 36.3–38.7; O2SAT 89–98
[2020-07-20] MEDS: guaiFENesin 10 ML UDC (200MG/10ML) GT ×5 (00:45→22:44)
[2020-07-20 04:36] LABS: Bedside Glucose 71 mg/dL (70-110)
[2020-07-20 05:07] LABS: Vancomycin, Random Level 21.1 ug/mL (0.0-15.0)
[2020-07-20 05:40] LABS: Hematocrit 27.7 % (37-47); Hemoglobin 9.1 g/dL (12.0-15.0); Mean Corp Hgb Conc 32.9 g/dL (32-36); Mean Corpuscular Hgb 28.4 pg (27.0-32.0); Mean Corpuscular Volume 86.6 fL (81-99); POSITIVE COUNT YES; POSITIVE DIFFERENTIAL YES; POSITIVE MORPHOLOGY YES; Platelet Count 78 K/mm3 (150-450); RBC Distribution Width CV 16.6 % (11.6-14.6); RBC Distribution Width SD 50.4 fl (35.1-43.9)
[2020-07-20 05:52] LABS: Anion Gap 5 (5-15); BUN 116 mg/dL (7-18); BUN/Creat Ratio 66.3 RATIO (10-20); Calcium,Total 7.9 mg/dL (8.5-10.1); Chloride 117 mmol/L (98-107); Creatinine, Serum 1.75 mg/dL (0.55-1.02); EST Glomerular Filtration Rate 30 mL/min (>60); Est Glom Filt Rate - Afr Amer 37 mL/min (>60); Estimated Creatinine Clearance 23.32 ml/min; Glucose 71 mg/dL (74-106); Potassium 5.2 mmol/L (3.5-5.1); Sodium Level 145 mmol/L (136-145)
[2020-07-20 05:53] LABS: Differential Indicated MANUAL DIFF; White Blood Count 53.1 K/mm3 (4.4-11.0)
[2020-07-20 05:56] LABS: Neutrophil-Band 5 % (0-5); Neutrophil-Segmented 88 % (47-70); Total Cells Counted 100 (MANUAL DIFF)
[2020-07-20 06:02] LABS: Lymphocyte 3 % (19-41); Metamyelocyte 2 % (0-1); Monocyte 4 % (0-10)
[2020-07-20 06:03] LABS: Absolute Lymphocyte Count 1.59 X10^3/uL (0.83-4.51); Absolute Neutrophil Count 49.3 X10^3/uL (2.0-7.7); Lymphocyte # 1.59 X10^3/ul (4.0); Neutrophil # 49.34 X10^3/uL (2.7-7.7); Platelet Estimate MOD DEC (ADEQ)
[2020-07-20 06:04] LABS: Microcytosis 1+; Stomatocyte 1+
[2020-07-20 06:25] LABS: Bedside Glucose 83 mg/dL (70-110)
--- NOTE | 2020-07-20 07:17 | PCM.PN.INT ---
Subjective: Patient did well overnight. Patient has been able to be taken off of Levophed. Patient did receive Lasix therapy secondary to hypoxia and tolerated well with good output. Patient did have a fever overnight and oxygen status has slightly worsened compared to previous. General: - - Opens eyes to voice and follow some commands. Anasarca. HEENT: Atraumatic, PERRLA, EOMI, Normocephalic, - - Scleral injection without icterus Oral: Moist Mucosa, No Gingival or Mucosal Lesions/ Ulcerations, - - Crowded posterior pharynx Neck: Supple, No Nodes, Trachea Midline, JVD, Right Lungs: No rhonchi, No wheeze, Diminished, Rales - Bilateral Cardiovascular: Normal S1, Normal S2, No murmurs, No rub noted, No Gallop, Tachycardic, - - Sinus tachycardia noted on telemetry Abdomen: Bowel Sounds Present, Soft, Non Tender, Non-Distended, Obese Extremities: No clubbing, No cyanosis, Edema, - - Right arm hematoma is improved Skin: - - Significant ecchymosis the right upper extremity appreciated Musculoskeletal: No Tenderness to Palpation of Joints or Extremities Lymphatic: No Cervical, Supraclavicular, or Inguinal Adenopathy Neurological: Cranial nerves II-XII grossly intact, Neuro grossly intact Psych/Mental Status: Flat Affect Vital Signs Temp Pulse Resp BP Pulse Ox 38.5 C H 125 H 28 H 122/71 H 93 07/20/20 06:00 07/20/20 06:00 07/20/20 06:00 07/20/20 06:00 07/20/20 06:00 Oxygen Flow Rate (L/min) 10 Oxygen Delivery Method Mechanical Ventilator Weight: 136.8 kg Body Mass Index (BMI) 48.9 Finger Stick Blood Glucose 88 Intake and Output for Last 24 Hours 07/18/20 07/19/20 07/20/20 23:59 23:59 23:59 Intake Total 4957.02 / 5000.55 3340.46 / 3450.46 1365.00 / 1365.00 Output Total 1500 / 1500 2295 / 2495 900 / 900 Balance 3457.02 / 3500.55 1045.46 / 955.46 465.00 / 465.00 Labs (Last 48 Hours) 07/18/20 07/18/20 07/18/20 05:27 10:50 11:10 WBC RBC Hgb Hct MCV MCH MCHC RDW Std Deviation RDW Coeff of Rahel Plt Count MPV Neut % (Auto) Not Reportable Absolute Neuts (auto) 61.3 H Absolute Lymphs (auto) 5.37 H Total Counted 100 Neutrophils % (Manual) 76 H Band Neutrophils % 4 Lymphocytes % (Manual) 7 L Monocytes % (Manual) 9 Metamyelocytes % 2 H Myelocytes % 2 H Nucleated RBCs/100 WBC 2 Differential Comment Diff Path Review Platelet Estimate ADEQUATE RBC Morphology Polychromasia 1+ Hypochromasia 3+ Microcytosis 3+ Macrocytosis 1+ Stomatocytes Schistocytes RARE Sodium Potassium Chloride Carbon Dioxide Anion Gap BUN Creatinine Estim Creat Clear Calc Est GFR (MDRD) Af Amer Est GFR (MDRD) Non-Af BUN/Creatinine Ratio Glucose Calcium Random Vancomycin POC Glucose 274 H Blood Type O POSITIVE Antibody Screen NEGATIVE Crossmatch See Detail 07/18/20 07/18/20 07/18/20 15:33 20:19 23:23 WBC RBC Hgb Hct MCV MCH MCHC RDW Std Deviation RDW Coeff of Rahel Plt Count MPV Neut % (Auto) Absolute Neuts (auto) Absolute Lymphs (auto) Total Counted Neutrophils % (Manual) Band Neutrophils % Lymphocytes % (Manual) Monocytes % (Manual) Metamyelocytes % Myelocytes % Nucleated RBCs/100 WBC Differential Comment Diff Path Review Platelet Estimate RBC Morphology Polychromasia Hypochromasia Microcytosis Macrocytosis Stomatocytes Schistocytes Sodium Potassium Chloride Carbon Dioxide Anion Gap BUN Creatinine Estim Creat Clear Calc Est GFR (MDRD) Af Amer Est GFR (MDRD) Non-Af BUN/Creatinine Ratio Glucose Calcium Random Vancomycin POC Glucose 242 H 247 H 252 H Blood Type Antibody Screen Crossmatch 07/19/20 07/19/20 07/19/20 05:09 05:25 05:25 WBC 62.2 H* RBC 3.42 L Hgb 9.5 L Hct 29.4 L MCV 86.0 MCH 27.8 MCHC 32.3 RDW Std Deviation 47.9 H RDW Coeff of Rahel 16.0 H Plt Count 119 L MPV 13.0 H Neut % (Auto) Not Reportable Absolute Neuts (auto) 51.0 H Absolute Lymphs (auto) 3.73 Total Counted 100 Neutrophils % (Manual) 81 H Band Neutrophils % 1 Lymphocytes % (Manual) 6 L Monocytes % (Manual) 9 Metamyelocytes % 3 H Myelocytes % Nucleated RBCs/100 WBC 3 Differential Comment Diff Path Review May foll Platelet Estimate ADEQUATE RBC Morphology N CHROM Polychromasia 1+ Hypochromasia Microcytosis Macrocytosis 2+ Stomatocytes Schistocytes Sodium 143 Potassium 5.0 Chloride 113 H Carbon Dioxide 22.0 Anion Gap 8 BUN 121 H* Creatinine 1.98 H Estim Creat Clear Calc 20.61 Est GFR (MDRD) Af Amer 32 L Est GFR (MDRD) Non-Af 26 L BUN/Creatinine Ratio 61.1 H Glucose 229 H Calcium 7.7 L Random Vancomycin POC Glucose 239 H Blood Type Antibody Screen Crossmatch 07/19/20 07/19/20 07/20/20 10:21 17:53 01:22 WBC RBC Hgb Hct MCV MCH MCHC RDW Std Deviation RDW Coeff of Rahel Plt Count MPV Neut % (Auto) Absolute Neuts (auto) Absolute Lymphs (auto) Total Counted Neutrophils % (Manual) Band Neutrophils % Lymphocytes % (Manual) Monocytes % (Manual) Metamyelocytes % Myelocytes % Nucleated RBCs/100 WBC Differential Comment Diff Path Review Platelet Estimate RBC Morphology Polychromasia Hypochromasia Microcytosis Macrocytosis Stomatocytes Schistocytes Sodium Potassium Chloride Carbon Dioxide Anion Gap BUN Creatinine Estim Creat Clear Calc Est GFR (MDRD) Af Amer Est GFR (MDRD) Non-Af BUN/Creatinine Ratio Glucose Calcium Random Vancomycin POC Glucose 234 H 105 71 Blood Type Antibody Screen Crossmatch 07/20/20 07/20/20 07/20/20 04:45 04:45 04:45 WBC 53.1 H* RBC 3.20 L Hgb 9.1 L Hct 27.7 L MCV 86.6 MCH 28.4 MCHC 32.9 RDW Std Deviation 50.4 H RDW Coeff of Rahel 16.6 H Plt Count 78 L MPV 0.0 L Neut % (Auto) Not Reportable Absolute Neuts (auto) 49.3 H Absolute Lymphs (auto) 1.59 Total Counted 100 Neutrophils % (Manual) 88 H Band Neutrophils % 5 Lymphocytes % (Manual) 3 L Monocytes % (Manual) 4 Metamyelocytes % 2 H Myelocytes % Nucleated RBCs/100 WBC Differential Comment Diff Path Review May foll Platelet Estimate MOD DEC RBC Morphology Polychromasia Hypochromasia Microcytosis 1+ Macrocytosis Stomatocytes 1+ Schistocytes Sodium 145 Potassium 5.2 H Chloride 117 H Carbon Dioxide 23.0 Anion Gap 5 BUN 116 H* Creatinine 1.75 H Estim Creat Clear Calc 23.32 Est GFR (MDRD) Af Amer 37 L Est GFR (MDRD) Non-Af 30 L BUN/Creatinine Ratio 66.3 H Glucose 71 L Calcium 7.9 L Random Vancomycin 21.1 H POC Glucose Blood Type Antibody Screen Crossmatch 07/20/20 06:19 WBC RBC Hgb Hct MCV MCH MCHC RDW Std Deviation RDW Coeff of Rahel Plt Count MPV Neut % (Auto) Absolute Neuts (auto) Absolute Lymphs (auto) Total Counted Neutrophils % (Manual) Band Neutrophils % Lymphocytes % (Manual) Monocytes % (Manual) Metamyelocytes % Myelocytes % Nucleated RBCs/100 WBC Differential Comment Diff Path Review Platelet Estimate RBC Morphology Polychromasia Hypochromasia Microcytosis Macrocytosis Stomatocytes Schistocytes Sodium Potassium Chloride Carbon Dioxide Anion Gap BUN Creatinine Estim Creat Clear Calc Est GFR (MDRD) Af Amer Est GFR (MDRD) Non-Af BUN/Creatinine Ratio Glucose Calcium Random Vancomycin POC Glucose 83 Blood Type Antibody Screen Crossmatch Microbiology 07/16/20 10:05 Sputum, Induced/Lukens Gram Stain - Final 07/16/20 10:05 Sputum, Induced/Lukens Respiratory Culture - Final Sheryl albicans 07/16/20 09:10 Blood Culture (Wb) - Line Draw Blood Culture - Preliminary No growth in 48 hours. 07/16/20 08:50 Urine Catheter - Hightower Urine Culture - Final Sheryl albicans Clinical Impression(s) from Imaging Studies Chest X-Ray 07/19/20 09:42 IMPRESSION: Favorable change. Significant clearing of bilateral multilobar pulmonary infiltrates. Electronically Signed: Jonathan Huynh MD ([facility]) at 10:30 EDT , Service support , Medical Necessity - Tobacco Use Smoking Status: Never smoker Assessment/Plan All Active Problems (Last Reviewed 01/22/20 @ 15:[address] Philipp Ybarra MD) ALICIA (acute kidney injury) (Acute) Pneumonia due to COVID-19 virus (Acute) RECOMMENDATIONS: 1. Wean PEEP and FiO2 per orders to maintain saturations at or above 90%. 2. Completed Decadron, Remdesevir. Off of anticoagulation secondary to hematoma associated with PICC line 3. Continue broad-spectrum antibiotics per ID. Cultures growing Sheryl, so micafungin has been initiated by ID 4. Continue Lantus and sliding scale. Additional insulin as necessary. 5. Wean Levophed to maintain a mean arterial pressure at or above 65 mmHg. 6. Continue appropriate GI prophylaxis. IMPRESSIONS: 1. Acute hypoxemic respiratory failure secondary to ARDS due to COVID pneumonia The patient initially presented to the hospital with symptoms concerning for coronavirus infection and subsequently tested positive on July 08. Although initially she was on very minimal supplemental oxygen, the patient decompensated from a respiratory perspective over the course of the ensuing days. Chest x-ray revealed progressive bilateral infiltrates. Although attempts were made to utilize noninvasive positive pressure ventilatory support, the patient continued to decompensate from a clinical perspective and had to be intubated on the morning of July 12. Patient completed courses of Decadron and Remdesevir. The patient also received convalescent plasma on July 11. Patient was significant improvement in oxygenation recently. Patient may qualify for spontaneous breathing and awakening trials in the near future. 2. Distributive shock Resolved. Unclear etiology. Some concern for the development of superimposed bacterial/fungal infection despite Zosyn therapy. Patient continues to have worsening leukocytosis, but pressor agents are improving with change in antibiotics. Pressor requirements have resolved. Patient does have Sheryl growing from multiple sources, so micafungin was initiated. Patient appears to be responding, but did have fever overnight 3. Acute on chronic kidney disease Slowly improving. Likely prerenal in etiology and related to ischemic ATN in the setting #2. Continue current supportive measures. Continue vasopressor support to maintain hemodynamic stability. Patient was significant improvement over the last 3 to 4 days. Doubt hemodialysis will be required. Will initiate diuretic therapy as patient appears to be significantly volume overloaded. 4. History of nonischemic cardiomyopathy/heart failure with reduced ejection fraction Diuretic regimen remains on hold due to hemodynamic instability and acute kidney injury. Recommend conservative use of fluids, given underlying depressed ejection fraction. Lasix has been initiated 5. Morbid obesity/diabetes mellitus/chronic kidney disease/depression/high risk for sleep disordered breathing/CODE STATUS Complicates care, management, recovery and prognosis. Continue sliding scale insulin regimen. Okay to continue tube feeds today from my perspective. The patient remains a DNR Comfort Care arrest with continued intubation, with no plans for CPR, but okay to continue with current intubation 6. Right upper extremity hematoma Significant hematoma is resolving at the PICC line insertion site. Anticoagulation has been held. No longer necessary to monitor arm circumference. Will order 2 units of packed red blood cells to see if this will help with hypotension and cardiac delivery 7. Leukocytosis Unclear etiology. Possible response to fungal infection as this has significantly improved after initiation of micafungin. Patient appears to be having a leukemoid reaction and manual differential suggests a neutrophilic predominance without bandemia. Patient does have some immature cell types, but does not appear to have obvious leukemia. TIME: 33 minutes of critical care time, independent of procedures, was spent addressing the patient's acute hypoxemic respiratory failure, ARDS secondary to COVID pneumonia, distributive shock, acute on chronic kidney disease, history of congestive heart failure, review of all data and collaboration with care team. (5:45 AM to 6:45 AM) 9xxxx: [id number] Critical care first hour
--- NOTE | 2020-07-20 08:28 | PN_ITS ---
Patient Problems: Active and Suspected Problems (Last Reviewed 01/22/20 @ 15:[address] Philipp Ybarra MD) ALICIA (acute kidney injury) (Acute) Subjective: Chief complaint: Follow-up after admission for acute bilateral viral COVID-19 pneumonia complicated by acute hypoxic respiratory failure secondary to ARDS, developed acute kidney injury on stage III chronic kidney disease with uremia found to have disruptive shock. She developed left upper extremity hematoma due to PICC line and being on IV heparin drip, found to have acute blood loss anemia. Patient seen and examined. No acute events overnight. She was able to come off IV Levophed drip. Today, she is very lethargic, open eyes to voice, not following commands. She is still having spikes of fever, tachycardic, blood pressure is stable, on mechanical ventilation with FiO2 of 70% and PEEP of 8. - Physical Exam Vitals/I&O's: Vital Signs Temp Pulse Resp BP Pulse Ox 101.3 F H 123 H 27 H 122/71 H 93 07/20/20 06:00 07/20/20 06:55 07/20/20 06:55 07/20/20 06:00 07/20/20 06:55 Oxygen Flow Rate (L/min) 10 Oxygen Delivery Method Mechanical Ventilator Weight: 301 lb 9.478 oz Body Mass Index (BMI) 48.9 Finger Stick Blood Glucose 88 Intake and Output for Last 24 Hours 07/18/20 07/19/20 07/20/20 23:59 23:59 23:59 Intake Total 4957.02 / 5000.55 3340.46 / 3450.46 1365.00 / 1365.00 Output Total 1500 / 1500 2295 / 2495 900 / 900 Balance 3457.02 / 3500.55 1045.46 / 955.46 465.00 / 465.00 General: - - Sleepy, lethargic, open eyes to voice, on mechanical ventilation. HEENT: Atraumatic, PERRLA, Normocephalic Oral: Moist Mucosa, No Gingival or Mucosal Lesions/ Ulcerations Neck: Supple, No JVD, Negative Carotid Bruits, Trachea Midline, Thyroid Normal Size and Texture Lungs: Diminished, Rales, Rhonchi, Short of Breath, - - Decreased breath sounds bilateral, bilateral crackles, rhonchi. Cardiovascular: Regular rate, Regular Rhythm, Normal S1, Normal S2, PMI Normal, Tachycardic Abdomen: Bowel Sounds Present, Soft, Non Tender, Non-Distended, No Hepato- splenomegaly, Obese Extremities: No clubbing, No cyanosis, Edema Skin: No rashes, No breakdown Lymphatic: No Cervical, Supraclavicular, or Inguinal Adenopathy Neurological: Cranial nerves II-XII grossly intact, - - Unable to assess power, patient is sedated. Psych/Mental Status: - - Unable to assess, patient is sedated. Microbiology Past 72 Hours 07/16/20 10:05 Sputum, Induced/Lukens Gram Stain - Final 07/16/20 10:05 Sputum, Induced/Lukens Respiratory Culture - Final Sheryl albicans 07/16/20 09:10 Blood Culture (Wb) - Line Draw Blood Culture - Preliminary No growth in 48 hours. 07/16/20 08:50 Urine Catheter - Hightower Urine Culture - Final Sheryl albicans Laboratory Results 07/19/20 10:21: POC Glucose 234 H 07/19/20 17:53: POC Glucose 105 07/20/20 01:22: POC Glucose 71 07/20/20 04:45: Random Vancomycin 21.1 H 07/20/20 04:45: WBC 53.1 H*, RBC 3.20 L, Hgb 9.1 L, Hct 27.7 L, MCV 86.6, MCH 28.4, MCHC 32.9, RDW Std Deviation 50.4 H, RDW Coeff of Rahel 16.6 H, Plt Count 78 L, MPV 0.0 L, Neut % (Auto) Not Reportable, Absolute Neuts (auto) 49.3 H, Absolute Lymphs (auto) 1.59, Total Counted 100, Neutrophils % (Manual) 88 H, Band Neutrophils % 5, Lymphocytes % (Manual) 3 L, Monocytes % (Manual) 4, Metamyelocytes % 2 H, Diff Path Review May foll, Platelet Estimate MOD DEC, Microcytosis 1+, Stomatocytes 1+ 07/20/20 04:45: Sodium 145, Potassium 5.2 H, Chloride 117 H, Carbon Dioxide 23.0, Anion Gap 5, BUN 116 H*, Creatinine 1.75 H, Estim Creat Clear Calc 23.32, Est GFR (MDRD) Af Amer 37 L, Est GFR (MDRD) Non-Af 30 L, BUN/Creatinine Ratio 66.3 H, Glucose 71 L, Calcium 7.9 L 07/20/20 06:19: POC Glucose 83 Current Medications Acetaminophen (Tylenol Liquid) 650 mg GT Q6H PRN PRN PRN Reason: Pain Score 1-10/Temp > 100.7 F Last Admin: 07/19/20 21:36 Dose: 650 mg Documented by: Albuterol Sulfate (Proair Hfa (Sp) Surgery/Vent Pts) 1 puff INHALATION Q2H PRN PRN PRN Reason: SHORTNESS OF BREATH/WHEEZING Atorvastatin Calcium (Lipitor) 20 mg GT QHS [facility] Last Admin: 07/19/20 21:38 Dose: 20 mg Documented by: Chlorhexidine Gluconate () 15 ml PO BID [facility] Last Admin: 07/19/20 21:34 Dose: 15 ml Documented by: Dextrose (D50w Syringe) 0 gm IV X1 PRN; Protocol PRN Reason: Hypoglycemia Famotidine (Pepcid) 20 mg GT DAILY [facility] Last Admin: 07/19/20 10:23 Dose: 20 mg Documented by: Furosemide (Lasix) 40 mg IV Q8 SUNNY Glucagon () 1 mg IM .X1 PRN PRN Reason: Hypoglycemia Guaifenesin (Robitussin) 10 ml GT Q6 [facility] Last Admin: 07/20/20 05:31 Dose: 10 ml Documented by: Sodium Chloride () 250 mls @ 15 mls/hr IV .[id number] PRN PRN Reason: Additional IVPB Infusion Last Admin: 07/20/20 01:54 Dose: 15 mls/hr Documented by: Fentanyl Citrate 1,000 mcg/ (Sodium Chloride) 100 mls @ 5 mls/hr CONT INF .Q20H SUNNY; Protocol Last Admin: 07/20/20 06:00 Dose: 150 mcg/hr, 15 mls/hr Documented by: Enteral Nutritional Formula (Vital Af 1.2 Wong Liquid) 1,000 mls @ 65 mls/hr GT .[id number] [facility] Last Admin: 07/19/20 14:20 Dose: 65 mls/hr Documented by: Norepinephrine Bitartrate 16 (mg/ Sodium Chloride) 250 mls @ 4.688 mls/hr CONT INF .[id number] [facility]; Protocol Last Admin: 07/20/20 03:53 Dose: Not Given Documented by: Vancomycin IV Pharmacy to Dose (1 ea/ Sodium Chloride) 500 mls @ 250 mls/hr IV X1 PRN; Protocol PRN Reason: Rx to Dose Meropenem 500 mg/ Sodium (Chloride) 60 mls @ 100 mls/hr IV Q12 [facility] Last Infusion: 07/19/20 22:15 Dose: Infused Documented by: Micafungin Sodium 100 mg/ (Dextrose) 105 mls @ 100 mls/hr IV Q24 [facility] Last Infusion: 07/19/20 11:53 Dose: Infused Documented by: Insulin Glargine (Lantus (Bk)) 100 units SC DAILY@2200 SUNNY Insulin Human Lispro (Humalog Kwikpen ([facility])) 0 unit SC Q6H SUNNY; Protocol Last Admin: 07/20/20 05:30 Dose: Not Given Documented by: Nystatin (Mycostatin Powder) 1 applic TOPICAL 4X/DAY PRN PRN; Protocol PRN Reason: SKIN Last Admin: 07/17/20 05:43 Dose: 1 applicatio Documented by: Ondansetron HCl (Zofran) 4 mg IV Q6H PRN PRN PRN Reason: NAUSEA/VOMITING Last Admin: 07/11/20 11:13 Dose: 4 mg Documented by: Senna/Docusate Sodium (Senokot-S, Brittney-Colace) 2 tablet GT BID [facility] Last Admin: 07/19/20 21:38 Dose: 2 tablet Documented by: Sertraline HCl (Zoloft) 100 mg GT DAILY [facility] Last Admin: 07/19/20 10:23 Dose: 100 mg Documented by: Sodium Chloride () 10 - 40 ml IV UD PRN PRN Reason: SALINE FLUSH Last Admin: 07/19/20 05:27 Dose: 30 ml Documented by: Sodium Chloride ([place] Nasal Provencal) 2 spray NASAL Q2H PRN PRN Reason: NASAL DRYNESS Last Admin: 07/09/20 21:40 Dose: 2 spray Documented by: Medical Necessity - Tobacco Use Smoking Status: Never smoker Assessment/Plan All Active Problems (Last Reviewed 01/22/20 @ 15:[address] Philipp Ybarra MD) ALICIA (acute kidney injury) (Acute) Pneumonia due to COVID-19 virus (Acute) This is a 69 years old female patient presented to the emergency room because of weakness, fatigue, mild shortness of breath and she was found to have acute bilateral COVID-19 pneumonia complicated by acute hypoxic respiratory failure due to ARDS. #1 acute hypoxic respiratory failure/ARDS: Remained on mechanical ventilation, she is requiring more FiO2 of 70% with PEEP of 8. She has been febrile, tachycardic, she is off IV Levophed drip, blood pressure is maintained. It is secondary to COVID-19 pneumonia. She is on IV fentanyl drip for sedation. WBC continues to trend down, improving. She is on IV vancomycin, meropenem and IV micafungin. IV heparin discontinued because of left upper extremity hematoma. Critical care on the case. Plan: Continue same treatment, wean PEEP and FiO2 as tolerated. #2 acute bilateral COVID-19 pneumonia: She completed IV Decadron and remdesivir and received 1 unit of convalescent plasma. She is on IV antibiotics as above. At this time, she is off IV Levophed drip, blood pressure is maintained. WBC continue to trend down. Repeat blood culture showed no growth in 48 hours. Sputum and urine culture revealed Sheryl albicans. She is on IV Micafungin. Respiratory panel for viruses were negative. Pneumococcal and Legionella antigen were negative. Plan to continue same treatment. #3 left upper forearm/left elbow hematoma: Due to PICC line and being on IV heparin drip. IV heparin discontinued.. Her platelet count is normal. INR is 1.5. Swelling and ecchymosis of the left upper extremity is stable, plan to monitor. #4 acute blood loss anemia: It is combination of blood loss from the left upper extremity hematoma as well as hemodilution and acute illness. She received a total of 2 months of packed RBCs. Today hemoglobin is 9.1 g/dL, stable. #5 disruptive/refractory shock: Attributed to sedatives as well as probable secondary bacterial pneumonia. She has been off IV Levophed drip, blood pressure is maintained. She is still febrile and tachycardic. #6 Acute kidney injury on top of stage III chronic kidney disease/uremia: Baseline creatinine has been around 1.2 to 1.8 mg/dL. Kidney function continued to improve slowly, BUN is down to 116, today's creatinine is 1.75. Urine output started to improve. No plan for dialysis. #7 uncontrolled type 2 diabetes mellitus: Blood sugar remained in the range of 200s today, stabilized. It is multifactorial because of IV Decadron and acute illness. She is on Lantus 100 units twice daily as well as sliding scale. #8 chronic diastolic CHF/nonischemic cardiomyopathy: She is on statins. Diuretics, Coreg and lisinopril are on hold because of worsening kidney function as well as disruptive shock. #9 depression: Continue sertraline. #10 DVT prophylaxis: SCDs. This note was generated with [employer] dictation software. It may contain incorrect words, spelling, and punctuation that were not noted in checking the note before signing. Inpatient E&M: 97881 Subs Hosp L3
[2020-07-20] MEDS: Vital AF 1.2 Cal Liquid 1,000 ML 65 ML GT (09:00)
[2020-07-20] MEDS: Acetaminophen 650 MG/20 ML UDC GT (09:01)
[2020-07-20] MEDS: Famotidine 20 MG Tablet GT (11:03)
[2020-07-20] MEDS: Chlorhexidine 15 ML PO ×2 (11:03→21:46)
[2020-07-20] MEDS: Sertraline 100 MG Tablet GT (11:03)
[2020-07-20 11:30] LABS: Bedside Glucose 102 mg/dL (70-110)
[2020-07-20] MEDS: Furosemide 40 MG/4 ML Vial IV ×2 (14:53→21:46)
[2020-07-20] MEDS: 0.9% Saline Lock 10 ML Syringe IV (15:17)
--- NOTE | 2020-07-20 15:35 | PCM.PN.REN ---
Patient Problems: Active and Suspected Problems (Last Reviewed 01/22/20 @ 15:[address] Philipp Ybarra MD) ALICIA (acute kidney injury) (Acute) Subjective: not examined. remains intubated at 70% FIOS - Physical Exam Vitals/I&O's: Vital Signs Temp Pulse Resp BP Pulse Ox 101.3 F H 125 H 31 H 122/71 H 91 07/20/20 06:00 07/20/20 13:14 07/20/20 13:14 07/20/20 06:00 07/20/20 13:14 Oxygen Flow Rate (L/min) 10 Oxygen Delivery Method Mechanical Ventilator Weight: 136.8 kg Body Mass Index (BMI) 48.9 Finger Stick Blood Glucose 88 Intake and Output for Last 24 Hours 07/18/20 07/19/20 07/20/20 23:59 23:59 23:59 Intake Total 4957.02 / 5000.55 3340.46 / 3450.46 2690.50 / 2690.50 Output Total 1500 / 1500 2295 / 2495 1650 / 1650 Balance 3457.02 / 3500.55 1045.46 / 955.46 1040.50 / 1040.50 Microbiology Past 72 Hours 07/16/20 10:05 Sputum, Induced/Lukens Gram Stain - Final 07/16/20 10:05 Sputum, Induced/Lukens Respiratory Culture - Final Sheryl albicans 07/16/20 09:10 Blood Culture (Wb) - Line Draw Blood Culture - Preliminary No growth in 48 hours. 07/16/20 08:50 Urine Catheter - Hightower Urine Culture - Final Sheryl albicans Laboratory Results 07/19/20 17:53: POC Glucose 105 07/20/20 01:22: POC Glucose 71 07/20/20 04:45: Random Vancomycin 21.1 H 07/20/20 04:45: WBC 53.1 H*, RBC 3.20 L, Hgb 9.1 L, Hct 27.7 L, MCV 86.6, MCH 28.4, MCHC 32.9, RDW Std Deviation 50.4 H, RDW Coeff of Rahel 16.6 H, Plt Count 78 L, MPV 0.0 L, Neut % (Auto) Not Reportable, Absolute Neuts (auto) 49.3 H, Absolute Lymphs (auto) 1.59, Total Counted 100, Neutrophils % (Manual) 88 H, Band Neutrophils % 5, Lymphocytes % (Manual) 3 L, Monocytes % (Manual) 4, Metamyelocytes % 2 H, Diff Path Review May foll, Platelet Estimate MOD DEC, Microcytosis 1+, Stomatocytes 1+ 07/20/20 04:45: Sodium 145, Potassium 5.2 H, Chloride 117 H, Carbon Dioxide 23.0, Anion Gap 5, BUN 116 H*, Creatinine 1.75 H, Estim Creat Clear Calc 23.32, Est GFR (MDRD) Af Amer 37 L, Est GFR (MDRD) Non-Af 30 L, BUN/Creatinine Ratio 66.3 H, Glucose 71 L, Calcium 7.9 L 07/20/20 06:19: POC Glucose 83 07/20/20 10:59: POC Glucose 102 Current Medications Acetaminophen (Tylenol Liquid) 650 mg GT Q6H PRN PRN PRN Reason: Pain Score 1-10/Temp > 100.7 F Last Admin: 07/20/20 09:01 Dose: 650 mg Documented by: Albuterol Sulfate (Proair Hfa (Sp) Surgery/Vent Pts) 1 puff INHALATION Q2H PRN PRN PRN Reason: SHORTNESS OF BREATH/WHEEZING Atorvastatin Calcium (Lipitor) 20 mg GT QHS [facility] Last Admin: 07/19/20 21:38 Dose: 20 mg Documented by: Calamine/Phenol (Calmoseptine Ointment) 1 applic TOPICAL BID SUNNY; Protocol Chlorhexidine Gluconate () 15 ml PO BID [facility] Last Admin: 07/20/20 11:03 Dose: 15 ml Documented by: Dextrose (D50w Syringe) 0 gm IV X1 PRN; Protocol PRN Reason: Hypoglycemia Famotidine (Pepcid) 20 mg GT DAILY [facility] Last Admin: 07/20/20 11:03 Dose: 20 mg Documented by: Furosemide (Lasix) 40 mg IV Q8 [facility] Last Admin: 07/20/20 14:53 Dose: 40 mg Documented by: Glucagon () 1 mg IM .X1 PRN PRN Reason: Hypoglycemia Guaifenesin (Robitussin) 10 ml GT Q6 [facility] Last Admin: 07/20/20 11:03 Dose: 10 ml Documented by: Sodium Chloride () 250 mls @ 15 mls/hr IV .[id number] PRN PRN Reason: Additional IVPB Infusion Last Admin: 07/20/20 01:54 Dose: 15 mls/hr Documented by: Fentanyl Citrate 1,000 mcg/ (Sodium Chloride) 100 mls @ 5 mls/hr CONT INF .Q20H [facility]; Protocol Last Titration: 07/20/20 13:00 Dose: 50 mcg/hr, 5 mls/hr Documented by: Enteral Nutritional Formula (Vital Af 1.2 Wong Liquid) 1,000 mls @ 65 mls/hr GT .[id number] [facility] Last Admin: 07/20/20 09:00 Dose: 65 mls/hr Documented by: Norepinephrine Bitartrate 16 (mg/ Sodium Chloride) 250 mls @ 4.688 mls/hr CONT INF .[id number] [facility]; Protocol Last Admin: 07/20/20 03:53 Dose: Not Given Documented by: Vancomycin IV Pharmacy to Dose (1 ea/ Sodium Chloride) 500 mls @ 250 mls/hr IV X1 PRN; Protocol PRN Reason: Rx to Dose Meropenem 500 mg/ Sodium (Chloride) 60 mls @ 100 mls/hr IV Q12 [facility] Last Infusion: 07/20/20 10:51 Dose: Infused Documented by: Micafungin Sodium 100 mg/ (Dextrose) 105 mls @ 100 mls/hr IV Q24 [facility] Last Infusion: 07/20/20 12:06 Dose: Infused Documented by: Insulin Glargine (Lantus (Bkc)) 100 units SC DAILY@2200 [facility]NY Insulin Human Lispro (Humalog Kwikpen (Bk)) 0 unit SC Q6H [facility]; Protocol Last Admin: 07/20/20 11:03 Dose: Not Given Documented by: Nystatin (Mycostatin Powder) 1 applic TOPICAL 4X/DAY PRN PRN; Protocol PRN Reason: SKIN Last Admin: 07/17/20 05:43 Dose: 1 applicatio Documented by: Ondansetron HCl (Zofran) 4 mg IV Q6H PRN PRN PRN Reason: NAUSEA/VOMITING Last Admin: 07/11/20 11:13 Dose: 4 mg Documented by: Senna/Docusate Sodium (Senokot-S, Brittney-Colace) 2 tablet GT BID [facility] Last Admin: 07/20/20 10:43 Dose: Not Given Documented by: Sertraline HCl (Zoloft) 100 mg GT DAILY [facility] Last Admin: 07/20/20 11:03 Dose: 100 mg Documented by: Sodium Chloride () 10 - 40 ml IV UD PRN PRN Reason: SALINE FLUSH Last Admin: 07/20/20 15:17 Dose: 10 ml Documented by: Sodium Chloride ([place] Nasal Lapaz) 2 spray NASAL Q2H PRN PRN Reason: NASAL DRYNESS Last Admin: 07/09/20 21:40 Dose: 2 spray Documented by: Medical Necessity - Tobacco Use Smoking Status: Never smoker Assessment/Plan All Active Problems (Last Reviewed 01/22/20 @ 15:[address] Philipp Ybarra MD) ALICIA (acute kidney injury) (Acute) Pneumonia due to COVID-19 virus (Acute) 1- ALICIA . likely covid-19 induced ATN Kidney function is improving. BUN is trending down but remains > 100. Cr is trending down Nonoliguric. On lasix TID IVF Monitor UOP and RFP Keep MAP > 65 No RISK CONTROL [employer] LIABILITY [employer] if kidney function were to worsen as per Dr. Alvarez's note 2- Acute RF from COVID-19 pneumonia Vent support as per ICU team Ok with diuresis 3- COVID-19 pneumonia. Finished remdesivir Abx and antifungal treatment as per ID/ICU team 4- Septic shock from above. better. Off pressors Will defer hemodynamic support to ICU team Will continue to follow Please call if any question at [phone] Morena Nash MD
--- NOTE | 2020-07-20 16:00 | NURSING ---
1500 placed patient on cooling blanket due to fever and unresponsiveness to tylenol
[2020-07-20] MEDS: Insulin Lispro 100 UNIT/ML INSULN.PEN SC ×2 (17:41→22:42)
[2020-07-20] MEDS: Menthol/Lanolin/Calamine/Znox 113 GM Tube 1 APPLIC TOPICAL ×2 (17:41→21:46)
[2020-07-20 18:01] LABS: Bedside Glucose 154 mg/dL (70-110)
[2020-07-20] MEDS: Atorvastatin Calcium 20 MG Tablet GT (21:46)
[2020-07-20 22:45] LABS: Bedside Glucose 191 mg/dL (70-110)
[2020-07-21] VITALS (36 sets, daily range): BP systolic 89–135; BP diastolic 49–79; PULSE 76–119; RESP 14–33; TEMP 35.8–37.6; O2SAT 86–97
[2020-07-21] MEDS: Vital AF 1.2 Cal Liquid 1,000 ML 65 ML GT (00:30)
[2020-07-21] MEDS: 0.9% Saline Lock 10 ML Syringe IV (05:06)
[2020-07-21] MEDS: Furosemide 40 MG/4 ML Vial IV ×3 (05:06→22:17)
[2020-07-21] MEDS: guaiFENesin 10 ML UDC (200MG/10ML) GT ×3 (05:06→16:56)
[2020-07-21 05:21] LABS: Hematocrit 28.7 % (37-47); Hemoglobin 9.1 g/dL (12.0-15.0); Mean Corp Hgb Conc 31.7 g/dL (32-36); Mean Corpuscular Hgb 28.3 pg (27.0-32.0); Mean Corpuscular Volume 89.1 fL (81-99); POSITIVE COUNT YES; POSITIVE DIFFERENTIAL YES; POSITIVE MORPHOLOGY YES; Platelet Count 59 K/mm3 (150-450); RBC Distribution Width CV 17.2 % (11.6-14.6); RBC Distribution Width SD 52.4 fl (35.1-43.9); Red Blood Count 3.22 M/mm3 (4.2-5.4)
[2020-07-21 05:40] LABS: Vancomycin, Random Level 13.5 ug/mL (0.0-15.0)
[2020-07-21 06:04] LABS: Anion Gap 7 (5-15); BUN 113 mg/dL (7-18); BUN/Creat Ratio 81.3 RATIO (10-20); Calcium,Total 7.9 mg/dL (8.5-10.1); Chloride 118 mmol/L (98-107); Creatinine, Serum 1.39 mg/dL (0.55-1.02); EST Glomerular Filtration Rate 40 mL/min (>60); Est Glom Filt Rate - Afr Amer 48 mL/min (>60); Estimated Creatinine Clearance 29.36 ml/min; Glucose 151 mg/dL (74-106); Potassium 4.4 mmol/L (3.5-5.1); Sodium Level 149 mmol/L (136-145)
[2020-07-21 06:06] LABS: Differential Indicated MANUAL DIFF; White Blood Count 34.8 K/mm3 (4.4-11.0)
--- NOTE | 2020-07-21 06:10 | PCM.RX.CS ---
Consult Pharmacy has been consulted to manage selected antiobiotic: Vancomycin Type of Consult: Follow-up Suspected Infection: Pneumonia Prior Doses of Antibiotics Received/Current Regimen: Medications Vancomycin HCl 1,250 mg/ (Sodium Chloride) 275 mls @ 167 mls/hr IV Q24H SUNNY Labs: Sodium 149 mmol/L (136-145) H 07/21/20 05:00 Potassium 4.4 mmol/L (3.5-5.1) 07/21/20 05:00 Chloride 118 mmol/L (98-107) H 07/21/20 05:00 Carbon Dioxide 24.0 mmol/L (21.0-32.0) 07/21/20 05:00 Anion Gap 7 (5-15) 07/21/20 05:00 BUN 113 mg/dL (7-18) H* 07/21/20 05:00 Creatinine 1.39 mg/dL (0.55-1.02) H 07/21/20 05:00 Est GFR (MDRD) Af Amer 48 mL/min (>60) L 07/21/20 05:00 Est GFR (MDRD) Non-Af 40 mL/min (>60) L 07/21/20 05:00 BUN/Creatinine Ratio 81.3 RATIO (10-20) H 07/21/20 05:00 Glucose 151 mg/dL (74-106) H 07/21/20 05:00 Random Vancomycin 13.5 ug/mL (0.0-15.0) 07/21/20 05:00 Microbiology: Microbiology 07/16/20 10:05 Sputum, Induced/Lukens Gram Stain - Final 07/16/20 10:05 Sputum, Induced/Lukens Respiratory Culture - Final Sheryl albicans 07/16/20 09:10 Blood Culture (Wb) - Line Draw Blood Culture - Preliminary No growth in 48 hours. 07/16/20 08:50 Urine Catheter - Hightower Urine Culture - Final Sheryl albicans 07/15/20 06:40 Stool C. difficile DNA Amplification - Final 07/12/20 09:20 Sputum, Induced/Lukens Gram Stain - Final 07/12/20 09:20 Sputum, Induced/Lukens Respiratory Culture - Final 07/08/20 22:40 Blood Culture (Wb) - Left Forearm Blood Culture - Final No growth in 5 days. 07/08/20 22:30 Blood Culture (Wb) - Right Hand Blood Culture - Final No growth in 5 days. 07/10/20 13:45 Sputum, Expectorated/Coughed Gram Stain - Final 07/10/20 13:45 Sputum, Expectorated/Coughed Respiratory Culture - Final Culture exhibits no growth. 07/08/20 19:35 Urine, Random Streptococcus pneumoniae Antigen (M - Final 07/08/20 19:35 Urine, Random Legionella Antigen - Final 07/08/20 19:10 Mucosa - Nasopharyngeal Respiratory Panel (PCR) - Final Weight used for dosin.8 kg Estimated Creatinine Clearance: 29.4 Goal Trough: 15-20 mcg/mL Pharmacy Plan for Drug Dosing: Trough level was 13.5. SCr improved (CrCl=29.4). Will restart routine vanco dosing at 1250mg q24h and re-draw trough 07/23/20. Pharmacy Service will continue to monitor and adjust dosing as required. Follow-Up Labs: Trough Vancomycin Labs to be done on [date and time ordered]: 07/23/20 @[id number]
--- NOTE | 2020-07-21 06:17 | PCM.PN.INT ---
Subjective: The patient was seen and examined at the bedside this morning. Events from the last 24 hours have been reviewed. The patient is currently afebrile. She is still requiring high levels of respiratory support and remains on assist control with an FiO2 requirement of 70% and PEEP of 10. The patient is currently off of all forms of sedation. She is tolerating tube feeds without issue. She remains on scheduled IV Lasix 40 mg every 8 hours. She is currently scheduled to be overall net +20 L for the hospital admission. White blood cell count continues to improve. The patient remains thrombocytopenic with a platelet count of 59,000 this morning. Hemoglobin is stable at 9.1 g/dL. Objective: The patient's most recent lab work, culture data and imaging studies have all been personally reviewed. Surface echocardiogram from April 2019 revealed a mildly dilated LV with severe segmental systolic dysfunction and an ejection fraction of 20%. Coronavirus PCR was positive on July 08. Infectious work-up has only revealed Sheryl albicans in the patient's urine and sputum cultures dated July 16. General: - - Remains intubated and mechanically ventilated. HEENT: Atraumatic, PERRLA, Normocephalic Oral: No Gingival or Mucosal Lesions/ Ulcerations, - - Stable endotracheal and OG tubes Neck: Supple, No Nodes, Trachea Midline Lungs: Diminished, Rales Cardiovascular: Regular rate, Regular Rhythm, No murmurs Abdomen: Bowel Sounds Present, Soft, Non Tender, Obese Extremities: No clubbing, No cyanosis, Edema Skin: - - No significant change from previous Musculoskeletal: No Muscle Wasting Lymphatic: No Cervical, Supraclavicular, or Inguinal Adenopathy Neurological: - - No focal neurological deficits. Vital Signs Temp Pulse Resp BP Pulse Ox 96.9 F L 98 20 H 99/68 93 07/21/20 06:00 07/21/20 06:00 07/21/20 06:00 07/21/20 06:00 07/21/20 06:00 Oxygen Flow Rate (L/min) 10 Oxygen Delivery Method Mechanical Ventilator Weight: 301 lb 9.478 oz Body Mass Index (BMI) 48.9 Finger Stick Blood Glucose 88 Intake and Output for Last 24 Hours 07/19/20 07/20/20 07/21/20 23:59 23:59 23:59 Intake Total 3340.46 / 3450.46 3798.00 / 3888.00 516 / 516 Output Total 2295 / 2495 3775 / 3950 600 / 600 Balance 1045.46 / 955.46 23.00 / -62.00 -84 / -84 Labs (Last 48 Hours) 07/19/20 07/19/20 07/19/20 05:25 05:25 10:21 WBC 62.2 H* RBC 3.42 L Hgb 9.5 L Hct 29.4 L MCV 86.0 MCH 27.8 MCHC 32.3 RDW Std Deviation 47.9 H RDW Coeff of Rahel 16.0 H Plt Count 119 L MPV 13.0 H Neut % (Auto) Not Reportable Absolute Neuts (auto) 51.0 H Absolute Lymphs (auto) 3.73 Total Counted 100 Neutrophils % (Manual) 81 H Band Neutrophils % 1 Lymphocytes % (Manual) 6 L Monocytes % (Manual) 9 Metamyelocytes % 3 H Nucleated RBCs/100 WBC 3 Diff Path Review May foll Platelet Estimate ADEQUATE RBC Morphology N CHROM Polychromasia 1+ Microcytosis Macrocytosis 2+ Stomatocytes Sodium 143 Potassium 5.0 Chloride 113 H Carbon Dioxide 22.0 Anion Gap 8 BUN 121 H* Creatinine 1.98 H Estim Creat Clear Calc 20.61 Est GFR (MDRD) Af Amer 32 L Est GFR (MDRD) Non-Af 26 L BUN/Creatinine Ratio 61.1 H Glucose 229 H Calcium 7.7 L Random Vancomycin POC Glucose 234 H 07/19/20 07/20/20 07/20/20 17:53 01:22 04:45 WBC RBC Hgb Hct MCV MCH MCHC RDW Std Deviation RDW Coeff of Rahel Plt Count MPV Neut % (Auto) Absolute Neuts (auto) Absolute Lymphs (auto) Total Counted Neutrophils % (Manual) Band Neutrophils % Lymphocytes % (Manual) Monocytes % (Manual) Metamyelocytes % Nucleated RBCs/100 WBC Diff Path Review Platelet Estimate RBC Morphology Polychromasia Microcytosis Macrocytosis Stomatocytes Sodium Potassium Chloride Carbon Dioxide Anion Gap BUN Creatinine Estim Creat Clear Calc Est GFR (MDRD) Af Amer Est GFR (MDRD) Non-Af BUN/Creatinine Ratio Glucose Calcium Random Vancomycin 21.1 H POC Glucose 105 71 07/20/20 07/20/20 07/20/20 04:45 04:45 06:19 WBC 53.1 H* RBC 3.20 L Hgb 9.1 L Hct 27.7 L MCV 86.6 MCH 28.4 MCHC 32.9 RDW Std Deviation 50.4 H RDW Coeff of Rahel 16.6 H Plt Count 78 L MPV 0.0 L Neut % (Auto) Not Reportable Absolute Neuts (auto) 49.3 H Absolute Lymphs (auto) 1.59 Total Counted 100 Neutrophils % (Manual) 88 H Band Neutrophils % 5 Lymphocytes % (Manual) 3 L Monocytes % (Manual) 4 Metamyelocytes % 2 H Nucleated RBCs/100 WBC Diff Path Review May foll Platelet Estimate MOD DEC RBC Morphology Polychromasia Microcytosis 1+ Macrocytosis Stomatocytes 1+ Sodium 145 Potassium 5.2 H Chloride 117 H Carbon Dioxide 23.0 Anion Gap 5 BUN 116 H* Creatinine 1.75 H Estim Creat Clear Calc 23.32 Est GFR (MDRD) Af Amer 37 L Est GFR (MDRD) Non-Af 30 L BUN/Creatinine Ratio 66.3 H Glucose 71 L Calcium 7.9 L Random Vancomycin POC Glucose 83 07/20/20 07/20/20 07/20/20 10:59 17:40 22:40 WBC RBC Hgb Hct MCV MCH MCHC RDW Std Deviation RDW Coeff of Rahel Plt Count MPV Neut % (Auto) Absolute Neuts (auto) Absolute Lymphs (auto) Total Counted Neutrophils % (Manual) Band Neutrophils % Lymphocytes % (Manual) Monocytes % (Manual) Metamyelocytes % Nucleated RBCs/100 WBC Diff Path Review Platelet Estimate RBC Morphology Polychromasia Microcytosis Macrocytosis Stomatocytes Sodium Potassium Chloride Carbon Dioxide Anion Gap BUN Creatinine Estim Creat Clear Calc Est GFR (MDRD) Af Amer Est GFR (MDRD) Non-Af BUN/Creatinine Ratio Glucose Calcium Random Vancomycin POC Glucose 102 154 H 191 H 07/21/20 07/21/20 07/21/20 05:00 05:00 05:00 WBC 34.8 H* RBC 3.22 L Hgb 9.1 L Hct 28.7 L MCV 89.1 MCH 28.3 MCHC 31.7 L RDW Std Deviation 52.4 H RDW Coeff of Rahel 17.2 H Plt Count 59 L MPV Neut % (Auto) Not Reportable Absolute Neuts (auto) Pending Absolute Lymphs (auto) Total Counted Neutrophils % (Manual) Band Neutrophils % Lymphocytes % (Manual) Monocytes % (Manual) Metamyelocytes % Nucleated RBCs/100 WBC Diff Path Review Platelet Estimate RBC Morphology Polychromasia Microcytosis Macrocytosis Stomatocytes Sodium 149 H Potassium 4.4 Chloride 118 H Carbon Dioxide 24.0 Anion Gap 7 BUN 113 H* Creatinine 1.39 H Estim Creat Clear Calc 29.36 Est GFR (MDRD) Af Amer 48 L Est GFR (MDRD) Non-Af 40 L BUN/Creatinine Ratio 81.3 H Glucose 151 H Calcium 7.9 L Random Vancomycin 13.5 POC Glucose Clinical Impression(s) from Imaging Studies Chest X-Ray 07/08/20 19:38 IMPRESSION: Very low lung volumes. Probable mild congestion and interstitial edema. Multifocal atelectasis and/or infiltrates not excluded. Electronically Signed: Maurice Barnett MD at 20:00 EDT , Service support , Chest X-Ray 07/10/20 05:55 IMPRESSION: Worsening of aeration as outlined above compared to the most recent examination. Opacification left retrocardiac space may be due to increased rotation of the patient and positioning. Small left pleural effusion suspected. Electronically Signed: Sulma Harmon MD at 5:50 EDT , Service support , Chest X-Ray 07/11/20 05:25 IMPRESSION: Stable infiltrates in the right lung. Mild increased infiltrate in the left upper lobe. Electronically Signed: Alexis Morales at 12:13 EDT , Service support , Chest X-Ray 07/12/20 09:18 IMPRESSION: 1. Status post intubation and enteric tube placement. 2. Bilateral infiltrates worse than the previous exam. Electronically Signed: Hadley Boyd MD at 10:06 EDT Tel , Service support , Chest X-Ray 07/19/20 09:42 IMPRESSION: Favorable change. Significant clearing of bilateral multilobar pulmonary infiltrates. Electronically Signed: Jonathan Huynh MD ([place]) at 10:30 EDT , Service support , Medical Necessity - Tobacco Use Smoking Status: Never smoker Assessment/Plan All Active Problems (Last Reviewed 01/22/20 @ 15:[address] Philipp Ybarra MD) ALICIA (acute kidney injury) (Acute) Pneumonia due to COVID-19 virus (Acute) RECOMMENDATIONS: 1. Continue to wean FiO2 and PEEP to maintain oxygen saturations at or above 90%. 2. The patient remains off of anticoagulation therapy secondary to hematoma associated with PICC line. 3. Continue antimicrobials/antifungals per ID recommendations. 4. Continue Lantus and sliding scale insulin coverage. 5. Continue scheduled IV Lasix. 6. Continue appropriate GI prophylaxis. IMPRESSIONS: 1. Acute hypoxemic respiratory failure secondary to ARDS due to COVID pneumonia The patient initially presented to the hospital with symptoms concerning for coronavirus infection and subsequently tested positive on July 08. Although initially she was on very minimal supplemental oxygen, the patient decompensated from a respiratory perspective over the course of the ensuing days. Chest x-ray revealed progressive bilateral infiltrates. Although attempts were made to utilize noninvasive positive pressure ventilatory support, the patient continued to decompensate from a clinical perspective and had to be intubated on the morning of July 12. The patient completed a treatment course of Decadron and Remdesevir. She also received convalescent plasma on July 11. She remains significantly volume overloaded and is in need of further diuresis. 2. Distributive shock Resolved. Most likely secondary to sedative medication use, as the patient became hemodynamically unstable after she was started on the aforementioned medications following intubation. However, given the progressive nature of the infiltrates noted on x-ray, she was placed on empiric antimicrobials as well, should she have an underlying superimposed bacterial infection. 3. Acute on chronic kidney disease Likely prerenal in etiology and related to ischemic ATN in the setting #2. Continue current supportive measures. Nephrology is continuing to follow. 4. History of nonischemic cardiomyopathy/heart failure with reduced ejection fraction Plan to continue diuresis as tolerated by renal function and hemodynamic status. 5. Morbid obesity/diabetes mellitus/chronic kidney disease/depression/high risk for sleep disordered breathing/CODE STATUS Complicates care, management, recovery and prognosis. Continue sliding scale insulin regimen. TIME: 34 minutes of critical care time, independent of procedures, was spent addressing the patient's acute hypoxemic respiratory failure, ARDS secondary to COVID pneumonia, distributive shock, acute on chronic kidney disease, history of congestive heart failure, review of all data and collaboration with care team. [id number]) [id number] Critical care first hour
[2020-07-21] MEDS: Insulin Lispro 100 UNIT/ML INSULN.PEN SC ×2 (06:19→13:16)
[2020-07-21 06:29] LABS: Eosinophil 1 % (0-5); Lymphocyte 4 % (19-41); Metamyelocyte 1 % (0-1); Monocyte 6 % (0-10); Neutrophil-Band 1 % (0-5); Neutrophil-Segmented 87 % (47-70); Nucleated Red Bld Cells,Manual 2 % (0-5); Total Cells Counted 100 (MANUAL DIFF)
[2020-07-21 06:30] LABS: Hypochromasia 2+; Macrocytosis 3+; Microcytosis 1+; Platelet Estimate MKD DEC (ADEQ); Polychromasia 1+
[2020-07-21 06:31] LABS: Absolute Lymphocyte Count 1.39 X10^3/uL (0.83-4.51); Absolute Neutrophil Count 30.6 X10^3/uL (2.0-7.7); Lymphocyte # 1.39 X10^3/ul (4.0); Neutrophil # 30.62 X10^3/uL (2.7-7.7)
--- NOTE | 2020-07-21 08:35 | PCM.PROGNOTE ---
Patient Problems: Active and Suspected Problems (Last Reviewed 01/22/20 @ 15:[address] Philipp Ybarra MD) ALICIA (acute kidney injury) (Acute) Subjective: Chief complaint: Follow-up after admission for acute bilateral viral COVID-19 pneumonia complicated by acute hypoxic respiratory failure secondary to ARDS, developed acute kidney injury on stage III chronic kidney disease with uremia found to have disruptive shock. She developed left upper extremity hematoma due to PICC line and being on IV heparin drip, found to have acute blood loss anemia. Patient seen and examined. No acute events overnight. This morning, she is alert, spontaneous eye opening, not following commands. She is still requiring high levels of vent settings, FiO2 of 70% with PEEP of 10. Currently, she is off propofol. No vasopressors needed. She has been afebrile overnight, blood pressure and heart rate are maintained, on mechanical ventilation. - Physical Exam Vitals/I&O's: Vital Signs Temp Pulse Resp BP Pulse Ox 97.2 F L 93 22 H 99/49 L 95 07/21/20 08:00 07/21/20 08:00 07/21/20 08:00 07/21/20 08:00 07/21/20 08:00 Oxygen Flow Rate (L/min) 10 Oxygen Delivery Method Mechanical Ventilator Weight: 302 lb 11.115 oz Body Mass Index (BMI) 48.9 Finger Stick Blood Glucose 88 Intake and Output for Last 24 Hours 07/19/20 07/20/20 07/21/20 23:59 23:59 23:59 Intake Total 3340.46 / 3450.46 3798.00 / 3888.00 629.75 / 629.75 Output Total 2295 / 2495 3775 / 3950 1050 / 1050 Balance 1045.46 / 955.46 23.00 / -62.00 -420.25 / -420.25 General: Alert, Cooperative, - - Not following commands. HEENT: Atraumatic, PERRLA, EOMI, Normocephalic Oral: Moist Mucosa, No Gingival or Mucosal Lesions/ Ulcerations Neck: Supple, No JVD, Negative Carotid Bruits, Trachea Midline, Thyroid Normal Size and Texture Lungs: No rhonchi, No rales, Diminished, Rhonchi, Short of Breath, - - Decreased breath sounds bilateral, occasional rhonchi. Cardiovascular: Regular rate, Regular Rhythm, Normal S1, Normal S2, PMI Normal Abdomen: Bowel Sounds Present, Soft, Non Tender, Non-Distended, No Hepato-splenomegaly, Obese Extremities: No clubbing, No cyanosis, Edema Skin: No rashes, No breakdown Lymphatic: No Cervical, Supraclavicular, or Inguinal Adenopathy Neurological: Cranial nerves II-XII grossly intact, - - Unable to assess power, patient is on mechanical ventilation. Psych/Mental Status: - - Unable to assess, patient is intubated. Microbiology Past 72 Hours 07/16/20 10:05 Sputum, Induced/Lukens Gram Stain - Final 07/16/20 10:05 Sputum, Induced/Lukens Respiratory Culture - Final Sheryl albicans 07/16/20 09:10 Blood Culture (Wb) - Line Draw Blood Culture - Preliminary No growth in 48 hours. 07/16/20 08:50 Urine Catheter - Hightower Urine Culture - Final Sheryl albicans Laboratory Results 07/20/20 10:59: POC Glucose 102 07/20/20 17:40: POC Glucose 154 H 07/20/20 22:40: POC Glucose 191 H 07/21/20 05:00: Random Vancomycin 13.5 07/21/20 05:00: WBC 34.8 H*, RBC 3.22 L, Hgb 9.1 L, Hct 28.7 L, MCV 89.1, MCH 28.3, MCHC 31.7 L, RDW Std Deviation 52.4 H, RDW Coeff of Rahel 17.2 H, Plt Count 59 L, Neut % (Auto) Not Reportable, Absolute Neuts (auto) 30.6 H, Absolute Lymphs (auto) 1.39, Total Counted 100, Neutrophils % (Manual) 87 H, Band Neutrophils % 1, Lymphocytes % (Manual) 4 L, Monocytes % (Manual) 6, Eosinophils % (Manual) 1, Metamyelocytes % 1, Nucleated RBCs/100 WBC 2, Diff Path Review May , Platelet Estimate MKD DEC, Polychromasia 1+, Hypochromasia 2+, Microcytosis 1+, Macrocytosis 3+ 07/21/20 05:00: Sodium 149 H, Potassium 4.4, Chloride 118 H, Carbon Dioxide 24.0, Anion Gap 7, BUN 113 H*, Creatinine 1.39 H, Estim Creat Clear Calc 29.36, Est GFR (MDRD) Af Amer 48 L, Est GFR (MDRD) Non-Af 40 L, BUN/Creatinine Ratio 81.3 H, Glucose 151 H, Calcium 7.9 L Current Medications Acetaminophen (Tylenol Liquid) 650 mg GT Q6H PRN PRN PRN Reason: Pain Score 1-10/Temp > 100.7 F Last Admin: 07/20/20 09:01 Dose: 650 mg Documented by: Albuterol Sulfate (Proair Hfa (Sp) Surgery/Vent Pts) 1 puff INHALATION Q2H PRN PRN PRN Reason: SHORTNESS OF BREATH/WHEEZING Atorvastatin Calcium (Lipitor) 20 mg GT QHS [facility] Last Admin: 07/20/20 21:46 Dose: 20 mg Documented by: Calamine/Phenol (Calmoseptine Ointment) 1 applic TOPICAL BID [facility]; Protocol Last Admin: 07/20/20 21:46 Dose: 1 applicatio Documented by: Chlorhexidine Gluconate () 15 ml PO BID [facility] Last Admin: 07/20/20 21:46 Dose: 15 ml Documented by: Dextrose (D50w Syringe) 0 gm IV X1 PRN; Protocol PRN Reason: Hypoglycemia Famotidine (Pepcid) 20 mg GT DAILY [facility] Last Admin: 07/20/20 11:03 Dose: 20 mg Documented by: Furosemide (Lasix) 40 mg IV Q8 [facility] Last Admin: 07/21/20 05:06 Dose: 40 mg Documented by: Glucagon () 1 mg IM .X1 PRN PRN Reason: Hypoglycemia Guaifenesin (Robitussin) 10 ml GT Q6 [facility] Last Admin: 07/21/20 05:06 Dose: 10 ml Documented by: Sodium Chloride () 250 mls @ 15 mls/hr IV .[id number] PRN PRN Reason: Additional IVPB Infusion Last Infusion: 07/21/20 06:20 Dose: 15 mls/hr Documented by: Fentanyl Citrate 1,000 mcg/ (Sodium Chloride) 100 mls @ 5 mls/hr CONT INF .Q20H [facility]; Protocol Last Titration: 07/20/20 16:00 Dose: Infused Documented by: Enteral Nutritional Formula (Vital Af 1.2 Wong Liquid) 1,000 mls @ 65 mls/hr GT .[id number] [facility] Last Admin: 07/21/20 00:30 Dose: 65 mls/hr Documented by: Vancomycin IV Pharmacy to Dose (1 ea/ Sodium Chloride) 500 mls @ 250 mls/hr IV X1 PRN; Protocol PRN Reason: Rx to Dose Meropenem 500 mg/ Sodium (Chloride) 60 mls @ 100 mls/hr IV Q12 [facility] Last Infusion: 07/20/20 22:25 Dose: Infused Documented by: Micafungin Sodium 100 mg/ (Dextrose) 105 mls @ 100 mls/hr IV Q24 [facility] Last Infusion: 07/20/20 12:06 Dose: Infused Documented by: Vancomycin HCl 1,250 mg/ (Sodium Chloride) 275 mls @ 167 mls/hr IV Q24H SUNNY Insulin Glargine (Lantus ([facility])) 100 units SC DAILY@2200 [facility] Last Admin: 07/20/20 22:43 Dose: 100 u Documented by: Insulin Human Lispro (Humalog Kwikpen ([facility])) 0 unit SC Q6H [facility]; Protocol Last Admin: 07/21/20 06:19 Dose: 3 u Documented by: Nystatin (Mycostatin Powder) 1 applic TOPICAL 4X/DAY PRN PRN; Protocol PRN Reason: SKIN Last Admin: 07/17/20 05:43 Dose: 1 applicatio Documented by: Ondansetron HCl (Zofran) 4 mg IV Q6H PRN PRN PRN Reason: NAUSEA/VOMITING Last Admin: 07/11/20 11:13 Dose: 4 mg Documented by: Senna/Docusate Sodium (Senokot-S, Brittney-Colace) 2 tablet GT BID [facility] Last Admin: 07/21/20 07:43 Dose: Not Given Documented by: Sertraline HCl (Zoloft) 100 mg GT DAILY [facility] Last Admin: 07/20/20 11:03 Dose: 100 mg Documented by: Sodium Chloride () 10 - 40 ml IV UD PRN PRN Reason: SALINE FLUSH Last Admin: 07/21/20 05:06 Dose: 30 ml Documented by: Sodium Chloride ([facility] Nasal [place]) 2 spray NASAL Q2H PRN PRN Reason: NASAL DRYNESS Last Admin: 07/09/20 21:40 Dose: 2 spray Documented by: Medical Necessity - Tobacco Use Smoking Status: Never smoker Assessment/Plan All Active Problems (Last Reviewed 01/22/20 @ 15:[address] Philipp Ybarra MD) ALICIA (acute kidney injury) (Acute) Pneumonia due to COVID-19 virus (Acute) This is a 69 years old female patient presented to the emergency room because of weakness, fatigue, mild shortness of breath and she was found to have acute bilateral COVID-19 pneumonia complicated by acute hypoxic respiratory failure due to ARDS. #1 acute hypoxic respiratory failure/ARDS: Remained on mechanical ventilation with high vent settings, FiO2 of 30% and PEEP of 10. She has been afebrile, blood pressure and heart rate are maintained. She is off sedation. Not on vasopressors. This is secondary to COVID-19 pneumonia. WBC continues to trend down, improving. She is on IV vancomycin, meropenem and IV micafungin. Critical care on the case. Plan: Continue same treatment, wean PEEP and FiO2 as tolerated. #2 acute bilateral COVID-19 pneumonia: She completed IV Decadron and remdesivir and received 1 unit of convalescent plasma. She is on IV antibiotics as above. She has been off vasopressors and sedations. WBC continue to trend down. Repeat blood culture showed no growth in 48 hours. Sputum and urine culture revealed Sheryl albicans. She is on IV Micafungin. Respiratory panel for viruses were negative. Pneumococcal and Legionella antigen were negative. Plan to continue same treatment. #3 left upper forearm/left elbow hematoma: Due to PICC line and being on IV heparin drip. IV heparin discontinued. Now, she developed thrombocytopenia, platelet count is 15,000 today. INR was 1.5. Swelling and ecchymosis of the left upper extremity is stable, plan to monitor. #4 acute blood loss anemia: It is combination of blood loss from the left upper extremity hematoma as well as hemodilution and acute illness. She received a total of 2 months of packed RBCs. Today hemoglobin is 9.1 g/dL, stable as yesterday. #5 disruptive/refractory shock: Attributed to sedatives as well as probable secondary bacterial pneumonia. She has been off IV Levophed drip, blood pressure is maintained. Today, she is afebrile, heart rate stable. Plan as above. #6 Acute kidney injury on top of stage III chronic kidney disease/uremia: Baseline creatinine has been around 1.2 to 1.8 mg/dL. Kidney function continued to improve slowly, BUN is down to 113, today's creatinine is 1.39. Urine output significantly improved. No plan for dialysis. #7 uncontrolled type 2 diabetes mellitus: Blood sugar under much better control stabilized. It is multifactorial because of IV Decadron and acute illness. She is on Lantus 100 units twice daily as well as sliding scale. #8 chronic diastolic CHF/nonischemic cardiomyopathy: She is on statins. Diuretics, Coreg and lisinopril are on hold because of worsening kidney function as well as disruptive shock. #9 depression: Continue sertraline. #10 DVT prophylaxis: SCDs. This note was generated with [employer] dictation software. It may contain incorrect words, spelling, and punctuation that were not noted in checking the note before signing. Inpatient E&M: 03991 Subs Hosp L3
[2020-07-21] MEDS: Menthol/Lanolin/Calamine/Znox 113 GM Tube 1 APPLIC TOPICAL ×2 (08:43→22:20)
[2020-07-21] MEDS: Chlorhexidine 15 ML PO ×2 (08:43→22:15)
[2020-07-21] MEDS: Famotidine 20 MG Tablet GT (08:44)
[2020-07-21] MEDS: Sertraline 100 MG Tablet GT (08:44)
[2020-07-21 13:26] LABS: Bedside Glucose 171 mg/dL (70-110)
[2020-07-21 17:10] LABS: Bedside Glucose 134 mg/dL (70-110)
[2020-07-21] MEDS: Nystatin Powder 15gm Bottle 1 APPLIC TOPICAL (22:20)
[2020-07-21] MEDS: Atorvastatin Calcium 20 MG Tablet GT (22:21)
[2020-07-21 22:30] LABS: Bedside Glucose 154 mg/dL (70-110)
[2020-07-22] VITALS (42 sets, daily range): BP systolic 97–142; BP diastolic 45–91; PULSE 93–128; RESP 14–36; TEMP 37.6–38.5; O2SAT 91–97
[2020-07-22] MEDS: guaiFENesin 10 ML UDC (200MG/10ML) GT ×4 (00:48→17:23)
[2020-07-22] MEDS: Insulin Lispro 100 UNIT/ML INSULN.PEN SC (00:49)
[2020-07-22] MEDS: Vital AF 1.2 Cal Liquid 1,000 ML 65 ML GT ×2 (00:50→18:36)
[2020-07-22] MEDS: 0.9% Saline Lock 10 ML Syringe IV ×2 (06:02→12:30)
--- NOTE | 2020-07-22 06:06 | PN_ITS ---
Subjective: The patient was seen and examined at the bedside this morning. Events from the last 24 hours have been reviewed. The patient currently has a low-grade fever but remains hemodynamically stable. FiO2 requirement has been weaned to 50%. The patient is still requiring a PEEP of 10 cm of water. The patient is currently documented to be overall net +18.6 L for the hospital admission. She is currently vent day #11. Objective: The patient's most recent lab work, culture data and imaging studies have all been personally reviewed. Surface echocardiogram from April 2019 revealed a mildly dilated LV with severe segmental systolic dysfunction and an ejection fraction of 20%. Coronavirus PCR was positive on July 08. Infectious work-up has only revealed Sheryl albicans in the patient's urine and sputum cultures dated July 16. General: - - Intubated and mechanically ventilated. No ventilator dyssynchrony. HEENT: Atraumatic, PERRLA, Normocephalic Oral: Moist Mucosa, - - Stable endotracheal and OG tubes. Neck: Supple, No Nodes, Trachea Midline Lungs: Diminished Cardiovascular: Regular rate, Regular Rhythm, No murmurs Abdomen: Bowel Sounds Present, Soft, Non Tender, Obese Extremities: No clubbing, No cyanosis, Edema Skin: - - No significant change from previous Musculoskeletal: No Tenderness to Palpation of Joints or Extremities, No Muscle Wasting Lymphatic: No Cervical, Supraclavicular, or Inguinal Adenopathy Neurological: - - No focal neurological deficits. Alert and able to follow some simple commands. Vital Signs Temp Pulse Resp BP Pulse Ox 99.8 F H 116 H 30 H 136/70 H 94 07/22/20 06:00 07/22/20 06:00 07/22/20 06:00 07/22/20 06:00 07/22/20 06:00 Oxygen Flow Rate (L/min) 10 Oxygen Delivery Method Mechanical Ventilator Weight: 302 lb 11.115 oz Body Mass Index (BMI) 48.9 Finger Stick Blood Glucose 88 Intake and Output for Last 24 Hours 07/20/20 07/21/20 07/22/20 23:59 23:59 23:59 Intake Total 3798.00 / 3888.00 3112.75 / 3112.75 621 / 621 Output Total 3775 / 3950 3825 / 4700 1625 / 1625 Balance 23.00 / -62.00 -712.25 / -1587.25 -1004 / -1004 Labs (Last 48 Hours) 07/20/20 07/20/20 07/20/20 06:19 10:59 17:40 WBC RBC Hgb Hct MCV MCH MCHC RDW Std Deviation RDW Coeff of Rahel Plt Count Neut % (Auto) Absolute Neuts (auto) Absolute Lymphs (auto) Total Counted Neutrophils % (Manual) Band Neutrophils % Lymphocytes % (Manual) Monocytes % (Manual) Eosinophils % (Manual) Metamyelocytes % Nucleated RBCs/100 WBC Diff Path Review Platelet Estimate Polychromasia Hypochromasia Microcytosis Macrocytosis Sodium Potassium Chloride Carbon Dioxide Anion Gap BUN Creatinine Estim Creat Clear Calc Est GFR (MDRD) Af Amer Est GFR (MDRD) Non-Af BUN/Creatinine Ratio Glucose Calcium Random Vancomycin POC Glucose 83 102 154 H 07/20/20 07/21/20 07/21/20 22:40 05:00 05:00 WBC 34.8 H* RBC 3.22 L Hgb 9.1 L Hct 28.7 L MCV 89.1 MCH 28.3 MCHC 31.7 L RDW Std Deviation 52.4 H RDW Coeff of Rahel 17.2 H Plt Count 59 L Neut % (Auto) Not Reportable Absolute Neuts (auto) 30.6 H Absolute Lymphs (auto) 1.39 Total Counted 100 Neutrophils % (Manual) 87 H Band Neutrophils % 1 Lymphocytes % (Manual) 4 L Monocytes % (Manual) 6 Eosinophils % (Manual) 1 Metamyelocytes % 1 Nucleated RBCs/100 WBC 2 Diff Path Review May foll Platelet Estimate MKD DEC Polychromasia 1+ Hypochromasia 2+ Microcytosis 1+ Macrocytosis 3+ Sodium Potassium Chloride Carbon Dioxide Anion Gap BUN Creatinine Estim Creat Clear Calc Est GFR (MDRD) Af Amer Est GFR (MDRD) Non-Af BUN/Creatinine Ratio Glucose Calcium Random Vancomycin 13.5 POC Glucose 191 H 07/21/20 07/21/20 07/21/20 05:00 13:11 16:53 WBC RBC Hgb Hct MCV MCH MCHC RDW Std Deviation RDW Coeff of Rahel Plt Count Neut % (Auto) Absolute Neuts (auto) Absolute Lymphs (auto) Total Counted Neutrophils % (Manual) Band Neutrophils % Lymphocytes % (Manual) Monocytes % (Manual) Eosinophils % (Manual) Metamyelocytes % Nucleated RBCs/100 WBC Diff Path Review Platelet Estimate Polychromasia Hypochromasia Microcytosis Macrocytosis Sodium 149 H Potassium 4.4 Chloride 118 H Carbon Dioxide 24.0 Anion Gap 7 BUN 113 H* Creatinine 1.39 H Estim Creat Clear Calc 29.36 Est GFR (MDRD) Af Amer 48 L Est GFR (MDRD) Non-Af 40 L BUN/Creatinine Ratio 81.3 H Glucose 151 H Calcium 7.9 L Random Vancomycin POC Glucose 171 H 134 H 07/21/20 22:09 WBC RBC Hgb Hct MCV MCH MCHC RDW Std Deviation RDW Coeff of Rahel Plt Count Neut % (Auto) Absolute Neuts (auto) Absolute Lymphs (auto) Total Counted Neutrophils % (Manual) Band Neutrophils % Lymphocytes % (Manual) Monocytes % (Manual) Eosinophils % (Manual) Metamyelocytes % Nucleated RBCs/100 WBC Diff Path Review Platelet Estimate Polychromasia Hypochromasia Microcytosis Macrocytosis Sodium Potassium Chloride Carbon Dioxide Anion Gap BUN Creatinine Estim Creat Clear Calc Est GFR (MDRD) Af Amer Est GFR (MDRD) Non-Af BUN/Creatinine Ratio Glucose Calcium Random Vancomycin POC Glucose 154 H Microbiology 07/16/20 09:10 Blood Culture (Wb) - Line Draw Blood Culture - Final No growth in 5 days. Clinical Impression(s) from Imaging Studies Chest X-Ray 07/08/20 19:38 IMPRESSION: Very low lung volumes. Probable mild congestion and interstitial edema. Multifocal atelectasis and/or infiltrates not excluded. Electronically Signed: Maurice Barnett MD at 20:00 EDT , Service support , Chest X-Ray 07/10/20 05:55 IMPRESSION: Worsening of aeration as outlined above compared to the most recent examination. Opacification left retrocardiac space may be due to increased rotation of the patient and positioning. Small left pleural effusion suspected. Electronically Signed: Sulma Harmon MD at 5:50 EDT , Service support , Chest X-Ray 07/11/20 05:25 IMPRESSION: Stable infiltrates in the right lung. Mild increased infiltrate in the left upper lobe. Electronically Signed: Alexis Morales, at 12:13 EDT , Service support , Chest X-Ray 07/12/20 09:18 IMPRESSION: 1. Status post intubation and enteric tube placement. 2. Bilateral infiltrates worse than the previous exam. Electronically Signed: Hadley Boyd MD at 10:06 EDT Tel , Service support , Chest X-Ray 07/19/20 09:42 IMPRESSION: Favorable change. Significant clearing of bilateral multilobar pulmonary infiltrates. Electronically Signed: Jonathan Huynh MD ([place]) at 10:30 EDT , Service support , Medical Necessity - Tobacco Use Smoking Status: Never smoker Assessment/Plan All Active Problems (Last Reviewed 01/22/20 @ 15:[address] Philipp Ybarra MD) ALICIA (acute kidney injury) (Acute) Pneumonia due to COVID-19 virus (Acute) RECOMMENDATIONS: 1. Continue to wean FiO2 and PEEP to maintain oxygen saturations at or above 90%. 2. The patient remains off of anticoagulation therapy secondary to hematoma associated with PICC line. 3. Continue antimicrobials/antifungals per ID recommendations. 4. Continue Lantus and sliding scale insulin coverage. 5. Continue scheduled IV Lasix. 6. Continue appropriate GI prophylaxis. IMPRESSIONS: 1. Acute hypoxemic respiratory failure secondary to ARDS due to COVID pneumonia The patient initially presented to the hospital with symptoms concerning for coronavirus infection and subsequently tested positive on July 08. Although initially she was on very minimal supplemental oxygen, the patient decompensated from a respiratory perspective over the course of the ensuing days. Chest x-ray revealed progressive bilateral infiltrates. Although attempts were made to utilize noninvasive positive pressure ventilatory support, the patient continued to decompensate from a clinical perspective and had to be intubated on the morning of July 12. The patient completed a treatment course of Decadron and Remdesevir. She also received convalescent plasma on July 11. She remains significantly volume overloaded and is in need of further diuresis. 2. Distributive shock Resolved. Most likely secondary to sedative medication use, as the patient became hemodynamically unstable after she was started on the aforementioned medications following intubation. However, given the progressive nature of the infiltrates noted on x-ray, she was placed on empiric antimicrobials as well, should she have an underlying superimposed bacterial infection. 3. Acute on chronic kidney disease Likely prerenal in etiology and related to ischemic ATN in the setting #2. Continue current supportive measures. Nephrology is continuing to follow. 4. History of nonischemic cardiomyopathy/heart failure with reduced ejection fraction Plan to continue diuresis as tolerated by renal function and hemodynamic status. 5. Morbid obesity/diabetes mellitus/chronic kidney disease/depression/high risk for sleep disordered breathing/CODE STATUS Complicates care, management, recovery and prognosis. Continue sliding scale insulin regimen. Physical therapy to work with the patient once medically stabilized. TIME: 32 minutes of critical care time, independent of procedures, was spent a ddressing the patient's acute hypoxemic respiratory failure, ARDS secondary to COVID pneumonia, distributive shock, acute on chronic kidney disease, history of congestive heart failure, review of all data and collaboration with care team. ([id number]) [id number] Critical care first hour
[2020-07-22 06:08] LABS: Absolute Lymphocyte Count 1.28 X10^3/uL (0.83-4.51); Absolute Neutrophil Count 18.6 X10^3/uL (2.0-7.7); Basophil# 0.07 X10^3/uL; Basophil% 0.3 % (0-1); Eosinophils% 1.6 % (0-5); Hematocrit 29.5 % (37-47); Hemoglobin 8.9 g/dL (12.0-15.0); Lymphocyte # 1.28 X10^3/ul (4.0); Lymphocyte % 5.1 % (19-41); Mean Corp Hgb Conc 30.2 g/dL (32-36); Mean Corpuscular Hgb 27.8 pg (27.0-32.0); Mean Corpuscular Volume 92.2 fL (81-99); Monocyte# 3.58 X10^3/uL; Monocyte% 14.3 % (0-10); NRBC Flagged by Analyzer 3.6 % (0-5); Neutrophil # 18.57 X10^3/uL (2.7-7.7); Neutrophil % 74.1 % (47-70); POSITIVE COUNT YES; POSITIVE DIFFERENTIAL YES; POSITIVE MORPHOLOGY YES; Platelet Count 65 K/mm3 (150-450); RBC Distribution Width CV 19.9 % (11.6-14.6); RBC Distribution Width SD 54.4 fl (35.1-43.9); White Blood Count 25.1 K/mm3 (4.4-11.0)
[2020-07-22] MEDS: Furosemide 40 MG/4 ML Vial IV (06:08)
[2020-07-22 06:09] LABS: Differential Indicated SCAN CRITERIA MET
[2020-07-22 06:10] LABS: Differential Comment SCANNED
[2020-07-22 06:11] LABS: Platelet Estimate MOD DEC (ADEQ)
[2020-07-22 06:31] LABS: Anion Gap 6 (5-15); BUN 116 mg/dL (7-18); BUN/Creat Ratio 81.7 RATIO (10-20); Chloride 117 mmol/L (98-107); Creatinine, Serum 1.42 mg/dL (0.55-1.02); EST Glomerular Filtration Rate 39 mL/min (>60); Est Glom Filt Rate - Afr Amer 47 mL/min (>60); Estimated Creatinine Clearance 28.74 ml/min; Glucose 135 mg/dL (74-106); Potassium 4.5 mmol/L (3.5-5.1); Sodium Level 149 mmol/L (136-145)
[2020-07-22 07:31] LABS: Bedside Glucose 128 mg/dL (70-110)
--- NOTE | 2020-07-22 08:53 | PN_ITS ---
Patient Problems: Active and Suspected Problems (Last Reviewed 01/22/20 @ 15:[address] Philipp Ybarra MD) ALICIA (acute kidney injury) (Acute) Subjective: Chief complaint: Follow-up after admission for acute bilateral viral COVID-19 pneumonia complicated by acute hypoxic respiratory failure secondary to ARDS, developed acute kidney injury on stage III chronic kidney disease with uremia found to have disruptive shock. Later, she developed left upper extremity hematoma due to PICC line and being on IV heparin drip, found to have acute blood loss anemia. Patient seen and examined. No acute events overnight. This morning, she is sleepy, arousable to voice commands, not able to follow commands. Remains on mechanical ventilation with FiO2 of 50% and PEEP of 10. Still having spikes of low-grade fever, tachycardic, blood pressure is maintained, on mechanical ventilation. - Physical Exam Vitals/I&O's: Vital Signs Temp Pulse Resp BP Pulse Ox 99.8 F H 113 H 31 H 136/70 H 93 07/22/20 06:00 07/22/20 07:33 07/22/20 07:33 07/22/20 06:00 07/22/20 07:33 Oxygen Flow Rate (L/min) 10 Oxygen Delivery Method Mechanical Ventilator Weight: 291 lb 7.218 oz Body Mass Index (BMI) 48.9 Finger Stick Blood Glucose 88 Intake and Output for Last 24 Hours 07/20/20 07/21/20 07/22/20 23:59 23:59 23:59 Intake Total 3798.00 / 3888.00 3112.75 / 3112.75 621 / 621 Output Total 3775 / 3950 3825 / 4700 1625 / 1625 Balance 23.00 / -62.00 -712.25 / -1587.25 -1004 / -1004 General: Alert, Cooperative, - - Spontaneous eye opening, open eyes to voice commands, not following commands. HEENT: Atraumatic, PERRLA, EOMI, Normocephalic Oral: Moist Mucosa, No Gingival or Mucosal Lesions/ Ulcerations Neck: Supple, No JVD, Negative Carotid Bruits, Trachea Midline, Thyroid Normal Size and Texture Lungs: No wheeze, No rales, Diminished, Rhonchi, - - Decreased breath sounds bilateral, bilateral rhonchi. Cardiovascular: Regular rate, Regular Rhythm, Normal S1, Normal S2, PMI Normal, Tachycardic Abdomen: Bowel Sounds Present, Soft, Non Tender, Non-Distended, No Hepato- splenomegaly, Obese Extremities: No clubbing, No cyanosis, Edema Skin: No rashes, No breakdown Lymphatic: No Cervical, Supraclavicular, or Inguinal Adenopathy Neurological: Cranial nerves II-XII grossly intact, - - Unable to assess power, patient is on mechanical ventilation. Psych/Mental Status: - - Unable to assess, on mechanical ventilation. Microbiology Past 72 Hours 07/16/20 09:10 Blood Culture (Wb) - Line Draw Blood Culture - Final No growth in 5 days. Laboratory Results 07/21/20 13:11: POC Glucose 171 H 07/21/20 16:53: POC Glucose 134 H 07/21/20 22:09: POC Glucose 154 H 07/22/20 04:20: WBC 25.1 H, RBC 3.20 L, Hgb 8.9 L, Hct 29.5 L, MCV 92.2, MCH 27.8, MCHC 30.2 L, RDW Std Deviation 54.4 H, RDW Coeff of Rahel 19.9 H, Plt Count 65 L, MPV 0.0 L, Immature Gran % (Auto) 4.600 H, Neut % (Auto) 74.1 H, Lymph % (Auto) 5.1 L, [place] % (Auto) 14.3 H, Eos % (Auto) 1.6, Baso % (Auto) 0.3, Absolute Neuts (auto) 18.6 H, Absolute Lymphs (auto) 1.28, Nucleated RBC % 3.6, Differential Comment SCANNED, Diff Path Review March foll, Platelet Estimate MOD 07/22/20 04:20: Sodium 149 H, Potassium 4.5, Chloride 117 H, Carbon Dioxide 26.0, Anion Gap 6, BUN 116 H*, Creatinine 1.42 H, Estim Creat Clear Calc 28.74, Est GFR (MDRD) Af Amer 47 L, Est GFR (MDRD) Non-Af 39 L, BUN/Creatinine Ratio 81.7 H, Glucose 135 H, Calcium 8.0 L 07/22/20 06:06: POC Glucose 128 H Current Medications Acetaminophen (Tylenol Liquid) 650 mg GT Q6H PRN PRN PRN Reason: Pain Score 1-10/Temp > 100.7 F Last Admin: 07/20/20 09:01 Dose: 650 mg Documented by: Albuterol Sulfate (Proair Hfa (Sp) Surgery/Vent Pts) 1 puff INHALATION Q2H PRN PRN PRN Reason: SHORTNESS OF BREATH/WHEEZING Atorvastatin Calcium (Lipitor) 20 mg GT QHS [facility] Last Admin: 07/21/20 22:21 Dose: 20 mg Documented by: Calamine/Phenol (Calmoseptine Ointment) 1 applic TOPICAL BID [facility]; Protocol Last Admin: 07/21/20 22:20 Dose: 1 applicatio Documented by: Chlorhexidine Gluconate () 15 ml PO BID [facility] Last Admin: 07/21/20 22:15 Dose: 15 ml Documented by: Dextrose (D50w Syringe) 0 gm IV X1 PRN; Protocol PRN Reason: Hypoglycemia Famotidine (Pepcid) 20 mg GT DAILY [facility] Last Admin: 07/21/20 08:44 Dose: 20 mg Documented by: Furosemide (Lasix) 40 mg IV Q8 [facility] Last Admin: 07/22/20 06:08 Dose: 40 mg Documented by: Glucagon () 1 mg IM .X1 PRN PRN Reason: Hypoglycemia Guaifenesin (Robitussin) 10 ml GT Q6 [facility] Last Admin: 07/22/20 06:08 Dose: 10 ml Documented by: Sodium Chloride () 250 mls @ 15 mls/hr IV .[id number] PRN PRN Reason: Additional IVPB Infusion Last Infusion: 07/21/20 23:00 Dose: 15 mls/hr Documented by: Fentanyl Citrate 1,000 mcg/ (Sodium Chloride) 100 mls @ 5 mls/hr CONT INF .Q20H [facility]; Protocol Last Admin: 07/21/20 13:34 Dose: Not Given Documented by: Enteral Nutritional Formula (Vital Af 1.2 Wong Liquid) 1,000 mls @ 65 mls/hr GT .[id number] [facility] Last Admin: 07/22/20 00:50 Dose: 65 mls/hr Documented by: Vancomycin IV Pharmacy to Dose (1 ea/ Sodium Chloride) 500 mls @ 250 mls/hr IV X1 PRN; Protocol PRN Reason: Rx to Dose Meropenem 500 mg/ Sodium (Chloride) 60 mls @ 100 mls/hr IV Q12 [facility] Last Infusion: 07/21/20 23:00 Dose: Infused Documented by: Micafungin Sodium 100 mg/ (Dextrose) 105 mls @ 100 mls/hr IV Q24 [facility] Last Infusion: 07/21/20 10:08 Dose: Infused Documented by: Vancomycin HCl 1,250 mg/ (Sodium Chloride) 275 mls @ 167 mls/hr IV Q24H [facility] Last Infusion: 07/21/20 12:25 Dose: Infused Documented by: Insulin Glargine (Lantus ([facility])) 100 units SC DAILY@2200 [facility] Last Admin: 07/21/20 22:23 Dose: 100 u Documented by: Insulin Human Lispro (Humalog Kwikpen ([facility])) 0 unit SC Q6H [facility]; Protocol Last Admin: 07/22/20 06:07 Dose: Not Given Documented by: Nystatin (Mycostatin Powder) 1 applic TOPICAL 4X/DAY PRN PRN; Protocol PRN Reason: SKIN Last Admin: 07/21/20 22:20 Dose: 1 applicatio Documented by: Ondansetron HCl (Zofran) 4 mg IV Q6H PRN PRN PRN Reason: NAUSEA/VOMITING Last Admin: 07/11/20 11:13 Dose: 4 mg Documented by: Senna/Docusate Sodium (Senokot-S, Brittney-Colace) 2 tablet GT BID [facility] Last Admin: 07/21/20 22:21 Dose: Not Given Documented by: Sertraline HCl (Zoloft) 100 mg GT DAILY [facility] Last Admin: 07/21/20 08:44 Dose: 100 mg Documented by: Sodium Chloride () 10 - 40 ml IV UD PRN PRN Reason: SALINE FLUSH Last Admin: 07/22/20 06:02 Dose: 30 ml Documented by: Sodium Chloride ([place] Nasal [place]) 2 spray NASAL Q2H PRN PRN Reason: NASAL DRYNESS Last Admin: 07/09/20 21:40 Dose: 2 spray Documented by: Medical Necessity - Tobacco Use Smoking Status: Never smoker Assessment/Plan All Active Problems (Last Reviewed 01/22/20 @ 15:[address] Philipp Ybarra MD) ALICIA (acute kidney injury) (Acute) Pneumonia due to COVID-19 virus (Acute) This is a 69 years old female patient presented to the emergency room because of weakness, fatigue, mild shortness of breath and she was found to have acute bilateral COVID-19 pneumonia complicated by acute hypoxic respiratory failure due to ARDS. #1 acute hypoxic respiratory failure/ARDS: Still on mechanical ventilation, requiring high PEEP of 10 and FiO2 of 50%. Still having spikes of low-grade fever, tachycardic, blood pressure is maintained. She is on IV fentanyl for sedation.. Not on vasopressors. This is secondary to COVID-19 pneumonia. WBC continues to trend down, improving. Remained on IV vancomycin, meropenem and IV micafungin. Critical care on the case. Plan to discuss with nephrology regarding starting IV Lasix drip to take off volume overload, no plan for extubation today, wean PEEP and FiO2 as tolerated. #2 acute bilateral COVID-19 pneumonia: She completed IV Decadron and remdesivir and received 1 unit of convalescent plasma. She is on IV antibiotics as above. WBC continue to trend down. Repeat blood culture showed no growth in 48 hours. Sputum and urine culture revealed Sheryl albicans. She is on IV Micafungin. Respiratory panel for viruses were negative. Pneumococcal and Legionella antigen were negative. Plan to continue same treatment. #3 left upper forearm/left elbow hematoma: Due to PICC line and being on IV hepa rin drip. She has been off IV heparin drip. Today's platelet count is 65,000, improving. INR was 1.5. Swelling and ecchymosis of the left upper extremity is stable, plan to monitor. #4 acute blood loss anemia: It is combination of blood loss from the left upper extremity hematoma as well as hemodilution and acute illness. She received a total of 2 months of packed RBCs. Today hemoglobin is 8.9 g/dL, stable, plan to monitor. #5 disruptive/refractory shock: Attributed to sedatives as well as probable secondary bacterial pneumonia. She has been off IV Levophed drip, blood pressure is maintained. Today, she has low-grade fever, tachycardic, blood pressure is maintained. #6 Acute kidney injury on top of stage III chronic kidney disease/uremia: Baseline creatinine has been around 1.2 to 1.8 mg/dL. Today, her creatinine is 1.42, BUN is 116, slightly worsening from yesterday. She has a good urine output. Plan to discuss with nephrology regarding starting IV Lasix because of volume overload. #7 uncontrolled type 2 diabetes mellitus: Blood sugar under much better control stabilized. It is multifactorial because of IV Decadron and acute illness. She is on Lantus 100 units twice daily as well as sliding scale. #8 chronic diastolic CHF/nonischemic cardiomyopathy: She is on statins. Diuretics, Coreg and lisinopril are on hold because of worsening kidney function as well as disruptive shock. #9 depression: Continue sertraline. #10 DVT prophylaxis: SCDs. This note was generated with [employer] dictation software. It may contain incorrect words, spelling, and punctuation that were not noted in checking the note before signing. Inpatient E&M: 50438 Subs Hosp L3
[2020-07-22] MEDS: Famotidine 20 MG Tablet GT (10:28)
[2020-07-22] MEDS: Sertraline 100 MG Tablet GT (10:28)
[2020-07-22] MEDS: Menthol/Lanolin/Calamine/Znox 113 GM Tube 1 APPLIC TOPICAL ×2 (10:57→21:05)
[2020-07-22] MEDS: Chlorhexidine 15 ML PO ×2 (10:58→19:44)
[2020-07-22] MEDS: Furosemide 100 MG/10 ML Vial 60 MG IV (12:30)
[2020-07-22] MEDS: Furosemide 500 MG in Empty Viaflex 50 mL 1 EACH CONT INF (12:30)
--- NOTE | 2020-07-22 12:43 | PCM.PN.REN ---
Patient Problems: Active and Suspected Problems (Last Reviewed 01/22/20 @ 15:[address] Philipp Ybarra MD) ALICIA (acute kidney injury) (Acute) Subjective: no new events low grade fevers no pressors - Physical Exam Vitals/I&O's: Vital Signs Temp Pulse Resp BP Pulse Ox 100.5 F H 93 34 H 131/55 H 93 07/22/20 11:00 07/22/20 11:06 07/22/20 11:00 07/22/20 11:00 07/22/20 11:00 Oxygen Flow Rate (L/min) 10 Oxygen Delivery Method Mechanical Ventilator Weight: 132.2 kg Body Mass Index (BMI) 48.9 Finger Stick Blood Glucose 88 Intake and Output for Last 24 Hours 07/20/20 07/21/20 07/22/20 23:59 23:59 23:59 Intake Total 3798.00 / 3888.00 3112.75 / 3112.75 1436.5 / 1436.5 Output Total 3775 / 3950 3825 / 4700 2575 / 2575 Balance 23.00 / -62.00 -712.25 / -1587.25 -1138.5 / -1138.5 Comment: intubated orally, no pressors, arellano. Microbiology Past 72 Hours 07/16/20 09:10 Blood Culture (Wb) - Line Draw Blood Culture - Final No growth in 5 days. Laboratory Results 07/21/20 13:11: POC Glucose 171 H 07/21/20 16:53: POC Glucose 134 H 07/21/20 22:09: POC Glucose 154 H 07/22/20 04:20: WBC 25.1 H, RBC 3.20 L, Hgb 8.9 L, Hct 29.5 L, MCV 92.2, MCH 27.8, MCHC 30.2 L, RDW Std Deviation 54.4 H, RDW Coeff of Rahel 19.9 H, Plt Count 65 L, MPV 0.0 L, Immature Gran % (Auto) 4.600 H, Neut % (Auto) 74.1 H, Lymph % (Auto) 5.1 L, [place] % (Auto) 14.3 H, Eos % (Auto) 1.6, Baso % (Auto) 0.3, Absolute Neuts (auto) 18.6 H, Absolute Lymphs (auto) 1.28, Nucleated RBC % 3.6, Differential Comment SCANNED, Diff Path Review May foll, Platelet Estimate MOD 07/22/20 04:20: Sodium 149 H, Potassium 4.5, Chloride 117 H, Carbon Dioxide 26.0, Anion Gap 6, BUN 116 H*, Creatinine 1.42 H, Estim Creat Clear Calc 28.74, Est GFR (MDRD) Af Amer 47 L, Est GFR (MDRD) Non-Af 39 L, BUN/Creatinine Ratio 81.7 H, Glucose 135 H, Calcium 8.0 L 07/22/20 06:06: POC Glucose 128 H Current Medications Acetaminophen (Tylenol Liquid) 650 mg GT Q6H PRN PRN PRN Reason: Pain Score 1-10/Temp > 100.7 F Last Admin: 07/20/20 09:01 Dose: 650 mg Documented by: Albuterol Sulfate (Proair Hfa (Sp) Surgery/Vent Pts) 1 puff INHALATION Q2H PRN PRN PRN Reason: SHORTNESS OF BREATH/WHEEZING Atorvastatin Calcium (Lipitor) 20 mg GT QHS [facility] Last Admin: 07/21/20 22:21 Dose: 20 mg Documented by: Calamine/Phenol (Calmoseptine Ointment) 1 applic TOPICAL BID [facility]; Protocol Last Admin: 07/22/20 10:57 Dose: 1 applicatio Documented by: Chlorhexidine Gluconate () 15 ml PO BID [facility] Last Admin: 07/22/20 10:58 Dose: 15 ml Documented by: Dextrose (D50w Syringe) 0 gm IV X1 PRN; Protocol PRN Reason: Hypoglycemia Famotidine (Pepcid) 20 mg GT DAILY [facility] Last Admin: 07/22/20 10:28 Dose: 20 mg Documented by: Glucagon () 1 mg IM .X1 PRN PRN Reason: Hypoglycemia Guaifenesin (Robitussin) 10 ml GT Q6 [facility] Last Admin: 07/22/20 10:28 Dose: 10 ml Documented by: Sodium Chloride () 250 mls @ 15 mls/hr IV .[id number] PRN PRN Reason: Additional IVPB Infusion Last Infusion: 07/22/20 10:58 Dose: 0 mls/hr Documented by: Fentanyl Citrate 1,000 mcg/ (Sodium Chloride) 100 mls @ 5 mls/hr CONT INF .Q20H [facility]; Protocol Last Admin: 07/22/20 10:56 Dose: Not Given Documented by: Enteral Nutritional Formula (Vital Af 1.2 Wong Liquid) 1,000 mls @ 65 mls/hr GT .[id number] [facility] Last Admin: 07/22/20 00:50 Dose: 65 mls/hr Documented by: Vancomycin IV Pharmacy to Dose (1 ea/ Sodium Chloride) 500 mls @ 250 mls/hr IV X1 PRN; Protocol PRN Reason: Rx to Dose Meropenem 500 mg/ Sodium (Chloride) 60 mls @ 100 mls/hr IV Q12 [facility] Last Infusion: 07/21/20 23:00 Dose: Infused Documented by: Micafungin Sodium 100 mg/ (Dextrose) 105 mls @ 100 mls/hr IV Q24 [facility] Last Infusion: 07/21/20 10:08 Dose: Infused Documented by: Vancomycin HCl 1,250 mg/ (Sodium Chloride) 275 mls @ 167 mls/hr IV Q24H [facility] Last Admin: 07/22/20 10:58 Dose: 167 mls/hr Documented by: Furosemide 500 mg/ N/A 50 mls @ 1 mls/hr CONT INF .Q50H [facility] Last Admin: 07/22/20 12:30 Dose: 10 mg/hr, 1 mls/hr Documented by: Insulin Glargine (Lantus ([facility])) 100 units SC DAILY@2200 [facility] Last Admin: 07/21/20 22:23 Dose: 100 u Documented by: Insulin Human Lispro (Humalog Kwikpen ([facility])) 0 unit SC Q6H [facility]; Protocol Last Admin: 07/22/20 10:58 Dose: Not Given Documented by: Nystatin (Mycostatin Powder) 1 applic TOPICAL 4X/DAY PRN PRN; Protocol PRN Reason: SKIN Last Admin: 07/21/20 22:20 Dose: 1 applicatio Documented by: Ondansetron HCl (Zofran) 4 mg IV Q6H PRN PRN PRN Reason: NAUSEA/VOMITING Last Admin: 07/11/20 11:13 Dose: 4 mg Documented by: Senna/Docusate Sodium (Senokot-S, Brittney-Colace) 2 tablet GT BID [facility] Last Admin: 07/22/20 10:58 Dose: Not Given Documented by: Sertraline HCl (Zoloft) 100 mg GT DAILY [facility] Last Admin: 07/22/20 10:28 Dose: 100 mg Documented by: Sodium Chloride () 10 - 40 ml IV UD PRN PRN Reason: SALINE FLUSH Last Admin: 07/22/20 12:30 Dose: 20 ml Documented by: Sodium Chloride ([place] Nasal [place]) 2 spray NASAL Q2H PRN PRN Reason: NASAL DRYNESS Last Admin: 07/09/20 21:40 Dose: 2 spray Documented by: Medical Necessity - Tobacco Use Smoking Status: Never smoker Assessment/Plan All Active Problems (Last Reviewed 01/22/20 @ 15:[address] Philipp Ybarra MD) ALICIA (acute kidney injury) (Acute) Pneumonia due to COVID-19 virus (Acute) Acute renal failure Covid pneumonia severe Respiratory failure, currently on ventilator off all pressors fever curve better WBC is better BP is acceptable volume overload. ok for angelic constantino dw staff
[2020-07-22 12:56] LABS: Bedside Glucose 133 mg/dL (70-110)
[2020-07-22 13:24] LABS: Pathologist Review Reviewed
[2020-07-22 13:24] LABS: Pathologist Review Reviewed
[2020-07-22 13:43] LABS: Pathologist Review Reviewed
[2020-07-22 13:46] LABS: Pathologist Review Reviewed
[2020-07-22 13:48] LABS: Pathologist Review Reviewed
[2020-07-22] MEDS: Acetaminophen 650 MG/20 ML UDC GT (17:23)
[2020-07-22 19:26] LABS: Bedside Glucose 138 mg/dL (70-110)
[2020-07-22] MEDS: Atorvastatin Calcium 20 MG Tablet GT (21:05)
[2020-07-23] VITALS (37 sets, daily range): BP systolic 92–130; BP diastolic 48–88; PULSE 100–127; RESP 14–36; TEMP 38–38.6; O2SAT 87–960
[2020-07-23] MEDS: guaiFENesin 10 ML UDC (200MG/10ML) GT ×5 (00:20→23:47)
[2020-07-23] MEDS: Propofol 200 MG/20 ML Vial 100 MG IV BOLUS (00:37)
--- NOTE | 2020-07-23 00:42 | RAD_ITS ---
STUDY: X-RAY CHEST REASON FOR EXAM: Female, 69 years old recently intubated patient presents for evaluation of ET tube position. TECHNIQUE: Single AP portable view of the chest. COMPARISON: 07/19/2020. FINDINGS: Tip of the endotracheal tube is located 1.7 cm proximal to the erin. This probably should be partially withdrawn 1 or 2 cm. Left-sided intracardiac pacemaker is present. Enteric tube is present with the distal end below the hemidiaphragms and below the inferior edge of the image. The lungs are underexpanded. There appear to be bilateral heterogeneous airspace consolidations. There is no demonstrated pleural abnormality. Normal size heart. Normal mediastinum and madan. Normal visualized pulmonary arteries. There is atherosclerotic calcification of the aortic arch with tortuosity. There is demineralization of the osseous structures. Normal visualized ribs, clavicles, and shoulders. There is no demonstrated abnormality of the visualized soft tissue structures of the upper abdomen. RAD/Chest 1 View (Portable) IMPRESSION: 1. The tip of the endotracheal tube is located 1.7 cm proximal to the erin. 2. Unchanged appearance of bilateral heterogeneous airspace consolidations. Electronically Signed: Amy Francis MD at 1:24 EDT , Service support ,
--- NOTE | 2020-07-23 00:47 | NURSING ---
Addendum entered by Taylor Egan 07/24/20 06:43: *lavaged Original Note: After being lavagerd by RT, nurse was in room, and heard audible gurgle coming from pt's pharynx. Instilled 8cc of air into ETT cuff in 2cc increments, until gurgle noise subsided. Notified RT to return to room, and physician was paged for ETT exchange. Sedation bolus was ordered and administered. ETT was exchanged without incident. Pt tolerated poorly with drop in pulse ox to low 60s. Pt on 100% FiO2 following procedure. Reduced to 70% as pt recuperated.
--- NOTE | 2020-07-23 00:52 | CCHN_ITS ---
Hospitalist Note Intubation Note: Respiratory therapy at bedside with bougie and replacement ET tube 7.5 available. 10 cc bolus propofol administered as patient with coughing. Respiratory therapy detached ventilator and ET tube was held with bougie inserted with a coud? tip approximately 20 cm until resistance felt with old ET tube removed and confirms that in fact ET tube cuff had broken with then replacement ET tube appropriately slid over bougie and bougie extracted was noted 23 cm at the lip. Prior ET tube extracted at 0039 and new ET tube in pl lauren at 0040. Oxygen saturation slowly trended upward. Chest x-ray follow-up ordered. Procedures: [id number] Insert Emergency Airway
[2020-07-23] MEDS: 0.9% Saline Lock 10 ML Syringe IV ×3 (01:05→04:03)
--- NOTE | 2020-07-23 01:08 | NURSING ---
Fentanyl and tube feed on hold until pt recovers from procedure and confirmation of placement of OGT.
[2020-07-23 01:16] LABS: Bedside Glucose 106 mg/dL (70-110)
[2020-07-23] MEDS: Dextrose 50%-Water 25 GM/50 ML DISP.SYRIN IV (01:59)
--- NOTE | 2020-07-23 02:20 | NURSING ---
Low Blood Sugar of 35mg/dl. D50 given, 25grams. Repeat blood glucose 15 minutes after administration of D50 is 130mg/dl. Will continue to monitor throughout night.
[2020-07-23 02:36] LABS: Bedside Glucose 35 mg/dL (70-110)
[2020-07-23 02:36] LABS: Bedside Glucose 130 mg/dL (70-110)
--- NOTE | 2020-07-23 03:32 | NURSING ---
Repeat blood sugar 80mg/dl instilled orange juice and milk via OGT to support Blood sugar.
[2020-07-23 03:41] LABS: Bedside Glucose 81 mg/dL (70-110)
[2020-07-23 04:19] LABS: Absolute Lymphocyte Count 0.88 X10^3/uL (0.83-4.51); Absolute Neutrophil Count 11.2 X10^3/uL (2.0-7.7); Basophil# 0.05 X10^3/uL; Basophil% 0.3 % (0-1); Eosinophil# 0.31 X10^3/uL; Eosinophils% 1.9 % (0-5); Hematocrit 29.8 % (37-47); Hemoglobin 8.7 g/dL (12.0-15.0); Lymphocyte # 0.88 X10^3/ul (4.0); Lymphocyte % 5.3 % (19-41); Mean Corp Hgb Conc 29.2 g/dL (32-36); Mean Corpuscular Hgb 27.7 pg (27.0-32.0); Mean Corpuscular Volume 94.9 fL (81-99); Monocyte# 3.28 X10^3/uL; Monocyte% 19.9 % (0-10); NRBC Flagged by Analyzer 2.4 % (0-5); Neutrophil # 11.15 X10^3/uL (2.7-7.7); Neutrophil % 67.6 % (47-70); POSITIVE COUNT YES; POSITIVE DIFFERENTIAL YES; POSITIVE MORPHOLOGY YES; Platelet Count 74 K/mm3 (150-450); RBC Distribution Width CV 21.4 % (11.6-14.6); RBC Distribution Width SD 56.8 fl (35.1-43.9); Red Blood Count 3.14 M/mm3 (4.2-5.4); White Blood Count 16.5 K/mm3 (4.4-11.0)
[2020-07-23 04:24] LABS: Differential Indicated SCAN CRITERIA MET
[2020-07-23 04:38] LABS: Differential Comment SCANNED; Ovalocyte 1+; Platelet Estimate MOD DEC (ADEQ)
[2020-07-23 04:49] LABS: Anion Gap 8 (5-15); BUN 122 mg/dL (7-18); BUN/Creat Ratio 75.8 RATIO (10-20); Calcium,Total 7.8 mg/dL (8.5-10.1); Chloride 115 mmol/L (98-107); Creatinine, Serum 1.61 mg/dL (0.55-1.02); EST Glomerular Filtration Rate 34 mL/min (>60); Est Glom Filt Rate - Afr Amer 41 mL/min (>60); Estimated Creatinine Clearance 25.35 ml/min; Glucose 108 mg/dL (74-106); Sodium Level 151 mmol/L (136-145)
--- NOTE | 2020-07-23 06:01 | NURSING ---
Pt was on Spontaneous on vent for approx 30 minutes. Respirations up to 35 bpm, HR 120's, increased SBP 130. Switched back to AC/VC 14; 450; 60%; 5.
[2020-07-23 06:15] LABS: Bedside Glucose 94 mg/dL (70-110)
--- NOTE | 2020-07-23 06:20 | PN_ITS ---
Subjective: The patient was seen and examined at the bedside this morning. Events from the last 24 hours have been reviewed. Overnight, the patient developed an air leak from her endotracheal tube. Eventually, she did require endotracheal tube replacement due to a ruptured ship pilot balloon. The patient continues to have a low-grade fever but remains hemodynamically stable. The patient remains on assist control mode of mechanical ventilation with an FiO2 requirement of 60% and PEEP of 8. Due to the patient's hypervolemia, she was placed on a Lasix drip yesterday. She was noted to be overall -1.7 L in the last 24 hours. She is now overall net +15.8 L for the hospital admission. BUN and creatinine remain elevated. Sodium is now elevated at 151. Platelet count remains low, but stable, at 74,000. Objective: The patient's most recent lab work, culture data and imaging studies have all been personally reviewed. Surface echocardiogram from April 2019 revealed a mildly dilated LV with severe segmental systolic dysfunction and an ejection fraction of 20%. Coronavirus PCR was positive on July 08. Infectious work-up has only revealed Sheryl albicans in the patient's urine and sputum cultures dated July 16. General: Lethargic, - - Remains intubated and mechanically ventilated. HEENT: Atraumatic, Normocephalic Oral: No Gingival or Mucosal Lesions/ Ulcerations, - - Stable endotracheal and OG tubes. Neck: Supple, No Nodes, Trachea Midline Lungs: No rhonchi, No wheeze, No rales, Diminished Cardiovascular: Normal S1, Normal S2, Irregular Rate, Tachycardic Abdomen: Bowel Sounds Present, Soft, Non Tender, Obese Extremities: No clubbing, No cyanosis, Edema Skin: - - No significant change from previous Musculoskeletal: No Muscle Wasting Lymphatic: No Cervical, Supraclavicular, or Inguinal Adenopathy Neurological: - - No focal neurological deficits. Currently sedated. Vital Signs Temp Pulse Resp BP Pulse Ox 100.8 F H 124 H 36 H 130/67 H 90 07/23/20 06:00 07/23/20 06:00 07/23/20 06:00 07/23/20 06:00 07/23/20 06:00 Oxygen Flow Rate (L/min) 10 Oxygen Delivery Method Mechanical Ventilator Weight: 287 lb 7.724 oz Body Mass Index (BMI) 48.9 Finger Stick Blood Glucose 88 Intake and Output for Last 24 Hours 07/21/20 07/22/20 07/23/20 23:59 23:59 23:59 Intake Total 3112.75 / 3112.75 2685.53 / 3006.53 915.68 / 915.68 Output Total 3825 / 4700 4400 / 5162 2962 / 2962 Balance -712.25 / -1587.25 -1714.47 / -2155.47 -2046.32 / -2046.32 Labs (Last 48 Hours) 07/18/20 07/18/20 07/19/20 05:27 10:50 05:25 WBC RBC Hgb Hct MCV MCH MCHC RDW Std Deviation RDW Coeff of Rahel Plt Count MPV Immature Gran % (Auto) Neut % (Auto) Lymph % (Auto) [place] % (Auto) Eos % (Auto) Baso % (Auto) Absolute Neuts (auto) Absolute Lymphs (auto) Total Counted Neutrophils % (Manual) Band Neutrophils % Lymphocytes % (Manual) Monocytes % (Manual) Eosinophils % (Manual) Metamyelocytes % Nucleated RBC % Nucleated RBCs/100 WBC Differential Comment Diff Path Review Reviewed Reviewed Platelet Estimate Polychromasia Hypochromasia Microcytosis Macrocytosis Ovalocytes Sodium Potassium Chloride Carbon Dioxide Anion Gap BUN Creatinine Estim Creat Clear Calc Est GFR (MDRD) Af Amer Est GFR (MDRD) Non-Af BUN/Creatinine Ratio Glucose Calcium POC Glucose Crossmatch See Detail 07/20/20 07/21/20 07/21/20 04:45 05:00 13:11 WBC RBC Hgb Hct MCV MCH MCHC RDW Std Deviation RDW Coeff of Rahel Plt Count MPV Immature Gran % (Auto) Neut % (Auto) Lymph % (Auto) [place] % (Auto) Eos % (Auto) Baso % (Auto) Absolute Neuts (auto) 30.6 H Absolute Lymphs (auto) 1.39 Total Counted 100 Neutrophils % (Manual) 87 H Band Neutrophils % 1 Lymphocytes % (Manual) 4 L Monocytes % (Manual) 6 Eosinophils % (Manual) 1 Metamyelocytes % 1 Nucleated RBC % Nucleated RBCs/100 WBC 2 Differential Comment Diff Path Review Reviewed Reviewed Platelet Estimate MKD DEC Polychromasia 1+ Hypochromasia 2+ Microcytosis 1+ Macrocytosis 3+ Ovalocytes Sodium Potassium Chloride Carbon Dioxide Anion Gap BUN Creatinine Estim Creat Clear Calc Est GFR (MDRD) Af Amer Est GFR (MDRD) Non-Af BUN/Creatinine Ratio Glucose Calcium POC Glucose 171 H Crossmatch 07/21/20 07/21/20 07/22/20 16:53 22:09 04:20 WBC 25.1 H RBC 3.20 L Hgb 8.9 L Hct 29.5 L MCV 92.2 MCH 27.8 MCHC 30.2 L RDW Std Deviation 54.4 H RDW Coeff of Rahel 19.9 H Plt Count 65 L MPV 0.0 L Immature Gran % (Auto) 4.600 H Neut % (Auto) 74.1 H Lymph % (Auto) 5.1 L [place] % (Auto) 14.3 H Eos % (Auto) 1.6 Baso % (Auto) 0.3 Absolute Neuts (auto) 18.6 H Absolute Lymphs (auto) 1.28 Total Counted Neutrophils % (Manual) Band Neutrophils % Lymphocytes % (Manual) Monocytes % (Manual) Eosinophils % (Manual) Metamyelocytes % Nucleated RBC % 3.6 Nucleated RBCs/100 WBC Differential Comment SCANNED Diff Path Review Reviewed Platelet Estimate MOD DEC Polychromasia Hypochromasia Microcytosis Macrocytosis Ovalocytes Sodium Potassium Chloride Carbon Dioxide Anion Gap BUN Creatinine Estim Creat Clear Calc Est GFR (MDRD) Af Amer Est GFR (MDRD) Non-Af BUN/Creatinine Ratio Glucose Calcium POC Glucose 134 H 154 H Crossmatch 07/22/20 07/22/20 07/22/20 04:20 06:06 10:32 WBC RBC Hgb Hct MCV MCH MCHC RDW Std Deviation RDW Coeff of Rahel Plt Count MPV Immature Gran % (Auto) Neut % (Auto) Lymph % (Auto) [place] % (Auto) Eos % (Auto) Baso % (Auto) Absolute Neuts (auto) Absolute Lymphs (auto) Total Counted Neutrophils % (Manual) Band Neutrophils % Lymphocytes % (Manual) Monocytes % (Manual) Eosinophils % (Manual) Metamyelocytes % Nucleated RBC % Nucleated RBCs/100 WBC Differential Comment Diff Path Review Platelet Estimate Polychromasia Hypochromasia Microcytosis Macrocytosis Ovalocytes Sodium 149 H Potassium 4.5 Chloride 117 H Carbon Dioxide 26.0 Anion Gap 6 BUN 116 H* Creatinine 1.42 H Estim Creat Clear Calc 28.74 Est GFR (MDRD) Af Amer 47 L Est GFR (MDRD) Non-Af 39 L BUN/Creatinine Ratio 81.7 H Glucose 135 H Calcium 8.0 L POC Glucose 128 H 133 H Crossmatch 07/22/20 07/22/20 07/23/20 17:21 23:30 01:54 WBC RBC Hgb Hct MCV MCH MCHC RDW Std Deviation RDW Coeff of Rahel Plt Count MPV Immature Gran % (Auto) Neut % (Auto) Lymph % (Auto) [place] % (Auto) Eos % (Auto) Baso % (Auto) Absolute Neuts (auto) Absolute Lymphs (auto) Total Counted Neutrophils % (Manual) Band Neutrophils % Lymphocytes % (Manual) Monocytes % (Manual) Eosinophils % (Manual) Metamyelocytes % Nucleated RBC % Nucleated RBCs/100 WBC Differential Comment Diff Path Review Platelet Estimate Polychromasia Hypochromasia Microcytosis Macrocytosis Ovalocytes Sodium Potassium Chloride Carbon Dioxide Anion Gap BUN Creatinine Estim Creat Clear Calc Est GFR (MDRD) Af Amer Est GFR (MDRD) Non-Af BUN/Creatinine Ratio Glucose Calcium POC Glucose 138 H 106 35 L* Crossmatch 07/23/20 07/23/20 07/23/20 02:18 03:22 04:05 WBC 16.5 H RBC 3.14 L Hgb 8.7 L Hct 29.8 L MCV 94.9 MCH 27.7 MCHC 29.2 L RDW Std Deviation 56.8 H RDW Coeff of Rahel 21.4 H Plt Count 74 L MPV 0.0 L Immature Gran % (Auto) 5.000 H Neut % (Auto) 67.6 Lymph % (Auto) 5.3 L [place] % (Auto) 19.9 H Eos % (Auto) 1.9 Baso % (Auto) 0.3 Absolute Neuts (auto) 11.2 H Absolute Lymphs (auto) 0.88 Total Counted Neutrophils % (Manual) Band Neutrophils % Lymphocytes % (Manual) Monocytes % (Manual) Eosinophils % (Manual) Metamyelocytes % Nucleated RBC % 2.4 Nucleated RBCs/100 WBC Differential Comment SCANNED Diff Path Review May foll Platelet Estimate MOD DEC Polychromasia Hypochromasia Microcytosis Macrocytosis Ovalocytes 1+ Sodium Potassium Chloride Carbon Dioxide Anion Gap BUN Creatinine Estim Creat Clear Calc Est GFR (MDRD) Af Amer Est GFR (MDRD) Non-Af BUN/Creatinine Ratio Glucose Calcium POC Glucose 130 H 81 Crossmatch 07/23/20 07/23/20 04:05 05:39 WBC RBC Hgb Hct MCV MCH MCHC RDW Std Deviation RDW Coeff of Rahel Plt Count MPV Immature Gran % (Auto) Neut % (Auto) Lymph % (Auto) [place] % (Auto) Eos % (Auto) Baso % (Auto) Absolute Neuts (auto) Absolute Lymphs (auto) Total Counted Neutrophils % (Manual) Band Neutrophils % Lymphocytes % (Manual) Monocytes % (Manual) Eosinophils % (Manual) Metamyelocytes % Nucleated RBC % Nucleated RBCs/100 WBC Differential Comment Diff Path Review Platelet Estimate Polychromasia Hypochromasia Microcytosis Macrocytosis Ovalocytes Sodium 151 H Potassium 4.0 Chloride 115 H Carbon Dioxide 28.0 Anion Gap 8 BUN 122 H* Creatinine 1.61 H Estim Creat Clear Calc 25.35 Est GFR (MDRD) Af Amer 41 L Est GFR (MDRD) Non-Af 34 L BUN/Creatinine Ratio 75.8 H Glucose 108 H Calcium 7.8 L POC Glucose 94 Crossmatch Microbiology 07/16/20 09:10 Blood Culture (Wb) - Line Draw Blood Culture - Final No growth in 5 days. Clinical Impression(s) from Imaging Studies Chest X-Ray 07/08/20 19:38 IMPRESSION: Very low lung volumes. Probable mild congestion and interstitial edema. Multifocal atelectasis and/or infiltrates not excluded. Electronically Signed: Maurice Barnett MD at 20:00 EDT , Service support , Chest X-Ray 07/10/20 05:55 IMPRESSION: Worsening of aeration as outlined above compared to the most recent examination. Opacification left retrocardiac space may be due to increased rotation of the patient and positioning. Small left pleural effusion suspected. Electronically Signed: Sulma Harmon MD at 5:50 EDT , Service support , Chest X-Ray 07/11/20 05:25 IMPRESSION: Stable infiltrates in the right lung. Mild increased infiltrate in the left upper lobe. Electronically Signed: Alexis Andrew, at 12:13 EDT , Service support , Chest X-Ray 07/12/20 09:18 IMPRESSION: 1. Status post intubation and enteric tube placement. 2. Bilateral infiltrates worse than the previous exam. Electronically Signed: Hadley Boyd MD at 10:06 EDT Tel , Service support , Chest X-Ray 07/19/20 09:42 IMPRESSION: Favorable change. Significant clearing of bilateral multilobar pulmonary infiltrates. Electronically Signed: Jonathan Huynh MD ([place]) at 10:30 EDT , Service support , Chest X-Ray 07/23/20 00:42 IMPRESSION: 1. The tip of the endotracheal tube is located 1.7 cm proximal to the erin. 2. Unchanged appearance of bilateral heterogeneous airspace consolidations. Electronically Signed: Amy Francis MD at 1:24 EDT , Service support , Medical Necessity - Tobacco Use Smoking Status: Never smoker Assessment/Plan All Active Problems (Last Reviewed 01/22/20 @ 15:[address] Philipp Ybarra MD) ALICIA (acute kidney injury) (Acute) Pneumonia due to COVID-19 virus (Acute) RECOMMENDATIONS: 1. Continue to wean FiO2 and PEEP to maintain oxygen saturations at or above 90%. 2. The patient remains off of anticoagulation therapy secondary to hematoma associated with PICC line. 3. Continue antimicrobials/antifungals per ID recommendations. 4. Continue Lantus and sliding scale insulin coverage. 5. Continue lasix drip as tolerated by hemodynamics and renal function. 6. Continue appropriate GI prophylaxis. IMPRESSIONS: 1. Acute hypoxemic respiratory failure secondary to ARDS due to COVID pneumonia The patient initially presented to the hospital with symptoms concerning for coronavirus infection and subsequently tested positive on July 08. Although initially she was on very minimal supplemental oxygen, the patient decompensated from a respiratory perspective over the course of the ensuing days. Chest x-ray revealed progressive bilateral infiltrates. Although attempts were made to utilize noninvasive positive pressure ventilatory support, the patient continued to decompensate from a clinical perspective and had to be intubated on the morning of July 12. The patient completed a treatment course of Decadron and Remdesevir. She also received convalescent plasma on July 11. She remains significantly volume overloaded and is in need of further diuresis. 2. Distributive shock Resolved. Most likely secondary to sedative medication use, as the patient became hemodynamically unstable after she was started on the aforementioned medications following intubation. However, given the progressive nature of the infiltrates noted on x-ray, she was placed on empiric antimicrobials as well, should she have an underlying superimposed bacterial infection. 3. Acute on chronic kidney disease Likely prerenal in etiology and related to ischemic ATN in the setting #2. Continue current supportive measures. Nephrology is continuing to follow. 4. History of nonischemic cardiomyopathy/heart failure with reduced ejection fraction Plan to continue diuresis as tolerated by renal function and hemodynamic status. 5. Morbid obesity/diabetes mellitus/chronic kidney disease/depression/high risk for sleep disordered breathing/CODE STATUS Complicates care, management, recovery and prognosis. Continue sliding scale insulin regimen. Physical therapy to work with the patient once medically stabilized. UPDATE: I did call and speak with the patient's POA and updated her on the patient's overall clinical status. She at this time is considering transitioning the patient to comfort care measures in the next 24 hours. She is going to speak with additional family members this evening and touch base with me tomorrow regarding her desire for goals of care. TIME: 34 minutes of critical care time, independent of procedures, was spent addressing the patient's acute hypoxemic respiratory failure, ARDS secondary to COVID pneumonia, distributive shock, acute on chronic kidney disease, history of congestive heart failure, review of all data and collaboration with care team. [phone]) [phone]: [id number] Critical care first hour
[2020-07-23] MEDS: Acetaminophen 650 MG/20 ML UDC GT ×2 (07:56→14:05)
--- NOTE | 2020-07-23 08:12 | PN_ITS ---
Patient Problems: Active and Suspected Problems (Last Reviewed 01/22/20 @ 15:[address] Philipp Ybarra MD) ALICIA (acute kidney injury) (Acute) Reason for Visit: Acute hypoxic respiratory failure with COVID-19 pneumonia, possible ARDS Objective: Temperature T-max 101.3 Fahrenheit. Tachycardia, heart rate 122, irregular. Patient intubated, lightly sedated. Vitals/I&O's: Vital Signs Temp Pulse Resp BP Pulse Ox 101.0 F H 122 H 32 H 104/88 H 89 07/23/20 07:00 07/23/20 07:27 07/23/20 07:00 07/23/20 07:00 07/23/20 07:00 Oxygen Flow Rate (L/min) 10 Oxygen Delivery Method Mechanical Ventilator Weight: 287 lb 7.724 oz Body Mass Index (BMI) 48.9 Finger Stick Blood Glucose 88 Intake and Output for Last 24 Hours 07/21/20 07/22/20 07/23/20 23:59 23:59 23:59 Intake Total 3112.75 / 3112.75 2685.53 / 3006.53 915.68 / 915.68 Output Total 3825 / 4700 4400 / 5162 2962 / 2962 Balance -712.25 / -1587.25 -1714.47 / -2155.47 -2046.32 / -2046.32 General: - - On fentanyl HEENT: - - ET and OG tube Neck: Supple, No JVD, Negative Carotid Bruits Lungs: - - On vent support. FiO2 60%, respiratory rate 32-34 breathing over ventilator setting. PEEP 5 Cardiovascular: Normal S1, Normal S2, No murmurs, Irregular Rate, Tachycardic Abdomen: Bowel Sounds Present, Soft, Non Tender, Non-Distended, - - Fecal bag present. : Urine output good, 4400 mL last 24 hours. Positive fluid balance 15.8 L. Extremities: Edema Skin: Rash Present - Right arm and forearm hematoma with reddish, purplish rash. Right PICC line is present Musculoskeletal: Arthritic Changes Neurological: - - Neuro exam unobtainable patient is lightly sedated. Microbiology Past 72 Hours 07/16/20 09:10 Blood Culture (Wb) - Line Draw Blood Culture - Final No growth in 5 days. Laboratory Results 07/18/20 05:27: Diff Path Review Reviewed 07/18/20 10:50: Crossmatch See Detail 07/19/20 05:25: Diff Path Review Reviewed 07/20/20 04:45: Diff Path Review Reviewed 07/21/20 05:00: Diff Path Review Reviewed 07/22/20 04:20: Diff Path Review Reviewed 07/22/20 10:32: POC Glucose 133 H 07/22/20 17:21: POC Glucose 138 H 07/22/20 23:30: POC Glucose 106 07/23/20 01:54: POC Glucose 35 L* 07/23/20 02:18: POC Glucose 130 H 07/23/20 03:22: POC Glucose 81 07/23/20 04:05: WBC 16.5 H, RBC 3.14 L, Hgb 8.7 L, Hct 29.8 L, MCV 94.9, MCH 27.7, MCHC 29.2 L, RDW Std Deviation 56.8 H, RDW Coeff of Rahel 21.4 H, Plt Count 74 L, MPV 0.0 L, Immature Gran % (Auto) 5.000 H, Neut % (Auto) 67.6, Lymph % (Auto) 5.3 L, [place] % (Auto) 19.9 H, Eos % (Auto) 1.9, Baso % (Auto) 0.3, Absolute Neuts (auto) 11.2 H, Absolute Lymphs (auto) 0.88, Nucleated RBC % 2.4, Differential Comment SCANNED, Diff Path Review May foll, Platelet Estimate MOD DEC, Ovalocytes 1+ 07/23/20 04:05: Sodium 151 H, Potassium 4.0, Chloride 115 H, Carbon Dioxide 28.0, Anion Gap 8, BUN 122 H*, Creatinine 1.61 H, Estim Creat Clear Calc 25.35, Est GFR (MDRD) Af Amer 41 L, Est GFR (MDRD) Non-Af 34 L, BUN/Creatinine Ratio 75.8 H, Glucose 108 H, Calcium 7.8 L 07/23/20 05:39: POC Glucose 94 Current Medications Acetaminophen (Tylenol Liquid) 650 mg GT Q6H PRN PRN PRN Reason: Pain Score 1-10/Temp > 100.7 F Last Admin: 07/23/20 07:56 Dose: 650 mg Documented by: Albuterol Sulfate (Proair Hfa (Sp) Surgery/Vent Pts) 1 puff INHALATION Q2H PRN PRN PRN Reason: SHORTNESS OF BREATH/WHEEZING Atorvastatin Calcium (Lipitor) 20 mg GT QHS [facility] Last Admin: 07/22/20 21:05 Dose: 20 mg Documented by: Calamine/Phenol (Calmoseptine Ointment) 1 applic TOPICAL BID [facility]; Protocol Last Admin: 07/22/20 21:05 Dose: 1 applicatio Documented by: Chlorhexidine Gluconate () 15 ml PO BID [facility] Last Admin: 07/22/20 19:44 Dose: 15 ml Documented by: Dextrose (D50w Syringe) 0 gm IV X1 PRN; Protocol PRN Reason: Hypoglycemia Last Admin: 07/23/20 01:59 Dose: 25 gm Documented by: Famotidine (Pepcid) 20 mg GT DAILY [facility] Last Admin: 07/22/20 10:28 Dose: 20 mg Documented by: Glucagon () 1 mg IM .X1 PRN PRN Reason: Hypoglycemia Guaifenesin (Robitussin) 10 ml GT Q6 [facility] Last Admin: 07/23/20 05:41 Dose: 10 ml Documented by: Sodium Chloride () 250 mls @ 15 mls/hr IV .[id number] PRN PRN Reason: Additional IVPB Infusion Last Infusion: 07/23/20 04:00 Dose: 15 mls/hr Documented by: Fentanyl Citrate 1,000 mcg/ (Sodium Chloride) 100 mls @ 5 mls/hr CONT INF .Q20H [facility]; Protocol Last Titration: 07/23/20 07:37 Dose: 25 mcg/hr, 2.5 mls/hr Documented by: Enteral Nutritional Formula (Vital Af 1.2 Wong Liquid) 1,000 mls @ 65 mls/hr GT .[id number] [facility] Last Admin: 07/22/20 20:14 Dose: Not Given Documented by: Vancomycin IV Pharmacy to Dose (1 ea/ Sodium Chloride) 500 mls @ 250 mls/hr IV X1 PRN; Protocol PRN Reason: Rx to Dose Micafungin Sodium 100 mg/ (Dextrose) 105 mls @ 100 mls/hr IV Q24 [facility] Last Infusion: 07/22/20 15:20 Dose: Infused Documented by: Vancomycin HCl 1,250 mg/ (Sodium Chloride) 275 mls @ 167 mls/hr IV Q24H [facility] Last Infusion: 07/22/20 12:37 Dose: Infused Documented by: Furosemide 500 mg/ N/A 50 mls @ 1 mls/hr CONT INF .Q50H [facility] Last Infusion: 07/23/20 04:00 Dose: 10 mg/hr, 1 mls/hr Documented by: Meropenem 1 gm/ Sodium (Chloride) 100 mls @ 33 mls/hr IV Q12 [facility] Insulin Glargine (Lantus (Bk)) 90 units SC DAILY@2200 [facility] Insulin Human Lispro (Humalog Kwikpen ([facility])) 0 unit SC Q6H [facility]; Protocol Last Admin: 07/23/20 05:41 Dose: Not Given Documented by: Nystatin (Mycostatin Powder) 1 applic TOPICAL 4X/DAY PRN PRN; Protocol PRN Reason: SKIN Last Admin: 07/21/20 22:20 Dose: 1 applicatio Documented by: Ondansetron HCl (Zofran) 4 mg IV Q6H PRN PRN PRN Reason: NAUSEA/VOMITING Last Admin: 07/11/20 11:13 Dose: 4 mg Documented by: Senna/Docusate Sodium (Senokot-S, Brittney-Colace) 2 tablet GT BID PRN PRN PRN Reason: Constipation Sertraline HCl (Zoloft) 100 mg GT DAILY [facility] Last Admin: 07/22/20 10:28 Dose: 100 mg Documented by: Sodium Chloride () 10 - 40 ml IV UD PRN PRN Reason: SALINE FLUSH Last Admin: 07/23/20 04:03 Dose: 20 ml Documented by: Sodium Chloride ([facility] [facility]) 2 spray NASAL Q2H PRN PRN Reason: NASAL DRYNESS Last Admin: 07/09/20 21:40 Dose: 2 spray Documented by: STROKE Vital Signs/Narrative: Vital Signs Temp Pulse Resp BP Pulse Ox 07/23/20 07:27 122 H 07/23/20 07:00 101.0 F H 123 H 32 H 104/88 H 89 07/23/20 06:00 100.8 F H 124 H 36 H 130/67 H 90 07/23/20 05:30 120 H 34 H 90 07/23/20 05:00 100.7 F H 116 H 30 H 109/48 L 93 Medical Necessity - Tobacco Use Smoking Status: Never smoker Assessment/Plan All Active Problems (Last Reviewed 01/22/20 @ 15:[address] Philipp Ybarra MD) ALICIA (acute kidney injury) (Acute) Pneumonia due to COVID-19 virus (Acute) The patient is a 69 year old F with history of chronic systolic heart failure status post AICD, nonischemic cardiomyopathy came to ED with shortness of breath, generalized weakness, fever with chills for last 4 days and COVID-19 PCR positive, chest x-ray findings consistent with COVID-19 pneumonia. Chest x-ray done in the ER shows low lung volume with mild congestion, multifocal atelectasis and infiltrates although chest x-ray is not optimal quality. 1. Acute hypoxic respiratory failure with ARDS secondary to bilateral COVID-19 pneumonia: Patient was admitted on COVID called floor and then transferred to ICU secondary to acute hypoxic respiratory failure requiring intubation. Currently on mechanical ventilator FiO2 60%, still having low-grade fever, tachycardic. Not on vasopressor. Patient on IV vancomycin, meropenem and micafungin. On IV Lasix drip for volume overload. Patient being seen by filament shaper. 2. Chronic systolic heart failure with mild to moderate coronary artery disease with predominant nonischemic cardiomyopathy status post AICD: Patient had a heart cath in 2016 which shows 30 to 40% LAD and mid RCA, 60 to 70% and ostial LCD 30%. 2D echo as mentioned below. Echo April 2019 Mildly dilated left ventricle. Severe segmental systolic dysfunction (see wall motion). The estimated ejection fraction is 20 %. The left atrium appears enlarged. Trivial mitral valve insufficiency. Trivial tricuspid valve insufficiency. Mild focal aortic valve calcification. Continue home medications including torsemide, lisinopril, Coreg. Patient not on antiplatelet agent at home. 3. Right arm and forearm hematoma with PICC line: Patient was on IV heparin drip which is discontinued. Platelet count is low but has been stable. 4. Acute blood loss anemia with history of lower GI bleed secondary to diverticular bleed: Acute blood loss anemia probably secondary to combination of heparin drip, right upper extremity hematoma and acute illness. Patient was transfused 2 units of PRBC Patient was last admitted in October 2019 for rectal bleed secondary to diverticulosis. Patient had colonoscopy by Dr. Comer which showed 1 5 mm polyp in descending colon was removed. 5. Distributive most likely secondary to sedative, medication use, following intubation. Currently patient is off vasopressor. 6. Diabetes mellitus type 2 uncontrolled with A1c of 12.2 in July 2019. On Lantus 100 units twice daily as well as Accu-Cheks meds sliding scale. Patient on IV Decadron. 5. Hypertension, uncontrolled: Blood pressure is 156/91. Monitor blood pressure and titrate the dose of lisinopril accordingly. 6. Acute kidney injury chronic kidney disease stage III: Patient admitting creatinine was 1.25 which went up maximal 3.54 and is gradually improving, last one 1.6. 7. Depression ~ on SSRI; continued 8. DVT prophylaxis: Bilateral SCDs Clinical Impression(s) from Imaging Studies Chest X-Ray 07/11/20 05:25 IMPRESSION: Stable infiltrates in the right lung. Mild increased infiltrate in the left upper lobe. Chest X-Ray 07/12/20 09:18 IMPRESSION: 1. Status post intubation and enteric tube placement. 2. Bilateral infiltrates worse than the previous exam. Chest X-Ray 07/19/20 09:42 IMPRESSION: Favorable change. Significant clearing of bilateral multilobar pulmonary infiltrates. Chest X-Ray 07/23/20 00:42 IMPRESSION: 1. The tip of the endotracheal tube is located 1.7 cm proximal to the erin. 2. Unchanged appearance of bilateral heterogeneous airspace consolidations. Inpatient E&M: 36823 Init Hosp L3
[2020-07-23] MEDS: Sertraline 100 MG Tablet GT (09:00)
[2020-07-23] MEDS: Famotidine 20 MG Tablet GT (09:01)
[2020-07-23] MEDS: Chlorhexidine 15 ML PO ×2 (09:01→19:36)
[2020-07-23] MEDS: Menthol/Lanolin/Calamine/Znox 113 GM Tube 1 APPLIC TOPICAL ×2 (09:01→20:59)
[2020-07-23 10:00] LABS: Vancomycin, Trough Level 26.2 ug/mL (5.0-15.0)
[2020-07-23 11:35] LABS: Bedside Glucose 95 mg/dL (70-110)
--- NOTE | 2020-07-23 11:44 | PN.RENAL_ITS ---
Patient Problems: Active and Suspected Problems (Last Reviewed 01/22/20 @ 15:[address] Philipp Ybarra MD) ALICIA (acute kidney injury) (Acute) Subjective: no new events - Physical Exam Vitals/I&O's: Vital Signs Temp Pulse Resp BP Pulse Ox 101.3 F H 110 H 31 H 124/70 H 89 07/23/20 10:00 07/23/20 10:00 07/23/20 10:00 07/23/20 10:00 07/23/20 10:00 Oxygen Flow Rate (L/min) 10 Oxygen Delivery Method Mechanical Ventilator Weight: 130.4 kg Body Mass Index (BMI) 48.9 Finger Stick Blood Glucose 88 Intake and Output for Last 24 Hours 07/21/20 07/22/20 07/23/20 23:59 23:59 23:59 Intake Total 3112.75 / 3112.75 2685.53 / 3006.53 1133.01 / 1133.01 Output Total 3825 / 4700 4400 / 5162 3512 / 3512 Balance -712.25 / -1587.25 -1714.47 / -2155.47 -2378.99 / -2378.99 HEENT: Normocephalic Neck: Supple Cardiovascular: Regular rate, No murmurs Abdomen: Bowel Sounds Present, Soft, Non Tender Extremities: No edema Microbiology Past 72 Hours 07/16/20 09:10 Blood Culture (Wb) - Line Draw Blood Culture - Final No growth in 5 days. Laboratory Results 07/18/20 05:27: Diff Path Review Reviewed 07/18/20 10:50: Crossmatch See Detail 07/19/20 05:25: Diff Path Review Reviewed 07/20/20 04:45: Diff Path Review Reviewed 07/21/20 05:00: Diff Path Review Reviewed 07/22/20 04:20: Diff Path Review Reviewed 07/22/20 10:32: POC Glucose 133 H 07/22/20 17:21: POC Glucose 138 H 07/22/20 23:30: POC Glucose 106 07/23/20 01:54: POC Glucose 35 L* 07/23/20 02:18: POC Glucose 130 H 07/23/20 03:22: POC Glucose 81 07/23/20 04:05: WBC 16.5 H, RBC 3.14 L, Hgb 8.7 L, Hct 29.8 L, MCV 94.9, MCH 27.7, MCHC 29.2 L, RDW Std Deviation 56.8 H, RDW Coeff of Rahel 21.4 H, Plt Count 74 L, MPV 0.0 L, Immature Gran % (Auto) 5.000 H, Neut % (Auto) 67.6, Lymph % (Auto) 5.3 L, Schley % (Auto) 19.9 H, Eos % (Auto) 1.9, Baso % (Auto) 0.3, Absolute Neuts (auto) 11.2 H, Absolute Lymphs (auto) 0.88, Nucleated RBC % 2.4, Differential Comment SCANNED, Diff Path Review March foll, Platelet Estimate MOD DEC, Ovalocytes 1+ 07/23/20 04:05: Sodium 151 H, Potassium 4.0, Chloride 115 H, Carbon Dioxide 28.0, Anion Gap 8, BUN 122 H*, Creatinine 1.61 H, Estim Creat Clear Calc 25.35, Est GFR (MDRD) Af Amer 41 L, Est GFR (MDRD) Non-Af 34 L, BUN/Creatinine Ratio 75.8 H, Glucose 108 H, Calcium 7.8 L 07/23/20 05:39: POC Glucose 94 07/23/20 08:06: POC Glucose 95 07/23/20 09:20: Vancomycin Trough 26.2 H Current Medications Acetaminophen (Tylenol Liquid) 650 mg GT Q6H PRN PRN PRN Reason: Pain Score 1-10/Temp > 100.7 F Last Admin: 07/23/20 07:56 Dose: 650 mg Documented by: Albuterol Sulfate (Proair Hfa (Sp) Surgery/Vent Pts) 1 puff INHALATION Q2H PRN PRN PRN Reason: SHORTNESS OF BREATH/WHEEZING Atorvastatin Calcium (Lipitor) 20 mg GT QHS [facility] Last Admin: 07/22/20 21:05 Dose: 20 mg Documented by: Calamine/Phenol (Calmoseptine Ointment) 1 applic TOPICAL BID [facility]; Protocol Last Admin: 07/23/20 09:01 Dose: 1 applicatio Documented by: Chlorhexidine Gluconate () 15 ml PO BID [facility] Last Admin: 07/23/20 09:01 Dose: 15 ml Documented by: Dextrose (D50w Syringe) 0 gm IV X1 PRN; Protocol PRN Reason: Hypoglycemia Last Admin: 07/23/20 01:59 Dose: 25 gm Documented by: Famotidine (Pepcid) 20 mg GT DAILY [facility] Last Admin: 07/23/20 09:01 Dose: 20 mg Documented by: Glucagon () 1 mg IM .X1 PRN PRN Reason: Hypoglycemia Guaifenesin (Robitussin) 10 ml GT Q6 [facility] Last Admin: 07/23/20 05:41 Dose: 10 ml Documented by: Sodium Chloride () 250 mls @ 15 mls/hr IV .[id number] PRN PRN Reason: Additional IVPB Infusion Last Admin: 07/23/20 10:33 Dose: 15 mls/hr Documented by: Fentanyl Citrate 1,000 mcg/ (Sodium Chloride) 100 mls @ 5 mls/hr CONT INF .Q20H [facility]; Protocol Last Admin: 07/23/20 10:37 Dose: 50 mcg/hr, 5 mls/hr Documented by: Enteral Nutritional Formula (Vital Af 1.2 Wong Liquid) 1,000 mls @ 65 mls/hr GT .[id number] [facility] Last Admin: 07/22/20 20:14 Dose: Not Given Documented by: Vancomycin IV Pharmacy to Dose (1 ea/ Sodium Chloride) 500 mls @ 250 mls/hr IV X1 PRN; Protocol PRN Reason: Rx to Dose Micafungin Sodium 100 mg/ (Dextrose) 105 mls @ 100 mls/hr IV Q24 [facility] Last Infusion: 07/23/20 10:20 Dose: Infused Documented by: Furosemide 500 mg/ N/A 50 mls @ 1 mls/hr CONT INF .Q50H [facility] Last Infusion: 07/23/20 04:00 Dose: 10 mg/hr, 1 mls/hr Documented by: Meropenem 1 gm/ Sodium (Chloride) 100 mls @ 33 mls/hr IV Q12 [facility] Last Admin: 07/23/20 08:29 Dose: 33 mls/hr Documented by: Insulin Glargine (Lantus (Bkc)) 90 units SC DAILY@2200 [facility] Insulin Human Lispro (Humalog Kwikpen (Bk)) 0 unit SC Q6H [facility]; Protocol Last Admin: 07/23/20 05:41 Dose: Not Given Documented by: Nystatin (Mycostatin Powder) 1 applic TOPICAL 4X/DAY PRN PRN; Protocol PRN Reason: SKIN Last Admin: 07/21/20 22:20 Dose: 1 applicatio Documented by: Ondansetron HCl (Zofran) 4 mg IV Q6H PRN PRN PRN Reason: NAUSEA/VOMITING Last Admin: 07/11/20 11:13 Dose: 4 mg Documented by: Senna/Docusate Sodium (Senokot-S, Brittney-Colace) 2 tablet GT BID PRN PRN PRN Reason: Constipation Sertraline HCl (Zoloft) 100 mg GT DAILY [facility] Last Admin: 07/23/20 09:00 Dose: 100 mg Documented by: Sodium Chloride () 10 - 40 ml IV UD PRN PRN Reason: SALINE FLUSH Last Admin: 07/23/20 04:03 Dose: 20 ml Documented by: Sodium Chloride ([place] Nasal [place]) 2 spray NASAL Q2H PRN PRN Reason: NASAL DRYNESS Last Admin: 07/09/20 21:40 Dose: 2 spray Documented by: Medical Necessity - Tobacco Use Smoking Status: Never smoker Assessment/Plan All Active Problems (Last Reviewed 01/22/20 @ 15:[address] Philipp Ybarra MD) ALICIA (acute kidney injury) (Acute) Pneumonia due to COVID-19 virus (Acute) Acute renal failure Covid pneumonia severe Respiratory failure, currently on ventilator off all pressors fever curve better WBC is better BP is acceptable urine output is ok on lasix drip but massive fluid overload CXR reviewed possible goals of care discussion with family today
[2020-07-23 12:21] LABS: Bedside Glucose 114 mg/dL (70-110)
--- NOTE | 2020-07-23 14:46 | PCM.PN.ID ---
Patient Problems: Active and Suspected Problems (Last Reviewed 01/22/20 @ 15:[address] Philipp Ybarra MD) ALICIA (acute kidney injury) (Acute) Subjective: Fever today, mental status remains poor. - Physical Exam Vitals/I&O's: Vital Signs Temp Pulse Resp BP Pulse Ox 101.3 F H 115 H 27 H 118/74 93 07/23/20 14:00 07/23/20 14:00 07/23/20 14:00 07/23/20 14:00 07/23/20 14:00 Oxygen Flow Rate (L/min) 10 Oxygen Delivery Method Mechanical Ventilator Weight: 130.4 kg Body Mass Index (BMI) 48.9 Finger Stick Blood Glucose 88 Intake and Output for Last 24 Hours 07/21/20 07/22/20 07/23/20 23:59 23:59 23:59 Intake Total 3112.75 / 3112.75 2685.53 / 3006.53 1249.93 / 1249.93 Output Total 3825 / 4700 4400 / 5162 4412 / 4412 Balance -712.25 / -1587.25 -1714.47 / -2155.47 -3162.07 / -3162.07 General: Non-Cooperative Lungs: Clear to auscultation, Normal air movement Cardiovascular: Tachycardic Abdomen: Soft, Non Tender, Non-Distended Skin: No rashes Microbiology Past 72 Hours 07/16/20 09:10 Blood Culture (Wb) - Line Draw Blood Culture - Final No growth in 5 days. Laboratory Results 07/18/20 10:50: Crossmatch See Detail 07/22/20 17:21: POC Glucose 138 H 07/22/20 23:30: POC Glucose 106 07/23/20 01:54: POC Glucose 35 L* 07/23/20 02:18: POC Glucose 130 H 07/23/20 03:22: POC Glucose 81 07/23/20 04:05: WBC 16.5 H, RBC 3.14 L, Hgb 8.7 L, Hct 29.8 L, MCV 94.9, MCH 27.7, MCHC 29.2 L, RDW Std Deviation 56.8 H, RDW Coeff of Rahel 21.4 H, Plt Count 74 L, MPV 0.0 L, Immature Gran % (Auto) 5.000 H, Neut % (Auto) 67.6, Lymph % (Auto) 5.3 L, [place] % (Auto) 19.9 H, Eos % (Auto) 1.9, Baso % (Auto) 0.3, Absolute Neuts (auto) 11.2 H, Absolute Lymphs (auto) 0.88, Nucleated RBC % 2.4, Differential Comment SCANNED, Diff Path Review May foll, Platelet Estimate MOD DEC, Ovalocytes 1+ 07/23/20 04:05: Sodium 151 H, Potassium 4.0, Chloride 115 H, Carbon Dioxide 28.0, Anion Gap 8, BUN 122 H*, Creatinine 1.61 H, Estim Creat Clear Calc 25.35, Est GFR (MDRD) Af Amer 41 L, Est GFR (MDRD) Non-Af 34 L, BUN/Creatinine Ratio 75.8 H, Glucose 108 H, Calcium 7.8 L 07/23/20 05:39: POC Glucose 94 07/23/20 08:06: POC Glucose 95 07/23/20 09:20: Vancomycin Trough 26.2 H 07/23/20 12:03: POC Glucose 114 H Current Medications Acetaminophen (Tylenol Liquid) 650 mg GT Q6H PRN PRN PRN Reason: Pain Score 1-10/Temp > 100.7 F Last Admin: 07/23/20 14:05 Dose: 650 mg Documented by: Albuterol Sulfate (Proair Hfa (Sp) Surgery/Vent Pts) 1 puff INHALATION Q2H PRN PRN PRN Reason: SHORTNESS OF BREATH/WHEEZING Atorvastatin Calcium (Lipitor) 20 mg GT QHS [facility] Last Admin: 07/22/20 21:05 Dose: 20 mg Documented by: Calamine/Phenol (Calmoseptine Ointment) 1 applic TOPICAL BID [facility]; Protocol Last Admin: 07/23/20 09:01 Dose: 1 applicatio Documented by: Chlorhexidine Gluconate () 15 ml PO BID [facility] Last Admin: 07/23/20 09:01 Dose: 15 ml Documented by: Dextrose (D50w Syringe) 0 gm IV X1 PRN; Protocol PRN Reason: Hypoglycemia Last Admin: 07/23/20 01:59 Dose: 25 gm Documented by: Famotidine (Pepcid) 20 mg GT DAILY [facility] Last Admin: 07/23/20 09:01 Dose: 20 mg Documented by: Glucagon () 1 mg IM .X1 PRN PRN Reason: Hypoglycemia Guaifenesin (Robitussin) 10 ml GT Q6 [facility] Last Admin: 07/23/20 14:05 Dose: 10 ml Documented by: Sodium Chloride () 250 mls @ 15 mls/hr IV .[id number] PRN PRN Reason: Additional IVPB Infusion Last Admin: 07/23/20 10:33 Dose: 15 mls/hr Documented by: Fentanyl Citrate 1,000 mcg/ (Sodium Chloride) 100 mls @ 5 mls/hr CONT INF .Q20H [facility]; Protocol Last Titration: 07/23/20 14:00 Dose: 50 mcg/hr, 5 mls/hr Documented by: Enteral Nutritional Formula (Vital Af 1.2 Wong Liquid) 1,000 mls @ 65 mls/hr GT .[id number] [facility] Last Admin: 07/22/20 20:14 Dose: Not Given Documented by: Vancomycin IV Pharmacy to Dose (1 ea/ Sodium Chloride) 500 mls @ 250 mls/hr IV X1 PRN; Protocol PRN Reason: Rx to Dose Micafungin Sodium 100 mg/ (Dextrose) 105 mls @ 100 mls/hr IV Q24 [facility] Last Infusion: 07/23/20 10:20 Dose: Infused Documented by: Furosemide 500 mg/ N/A 50 mls @ 1 mls/hr CONT INF .Q50H [facility] Last Infusion: 07/23/20 04:00 Dose: 10 mg/hr, 1 mls/hr Documented by: Meropenem 1 gm/ Sodium (Chloride) 100 mls @ 33 mls/hr IV Q12 [facility] Last Infusion: 07/23/20 12:25 Dose: Infused Documented by: Insulin Glargine (Lantus (Bk)) 90 units SC DAILY@2200 [facility] Insulin Human Lispro (Humalog Kwikpen (Bk)) 0 unit SC Q6H [facility]; Protocol Last Admin: 07/23/20 12:25 Dose: Not Given Documented by: Nystatin (Mycostatin Powder) 1 applic TOPICAL 4X/DAY PRN PRN; Protocol PRN Reason: SKIN Last Admin: 07/21/20 22:20 Dose: 1 applicatio Documented by: Ondansetron HCl (Zofran) 4 mg IV Q6H PRN PRN PRN Reason: NAUSEA/VOMITING Last Admin: 07/11/20 11:13 Dose: 4 mg Documented by: Senna/Docusate Sodium (Senokot-S, Brittney-Colace) 2 tablet GT BID PRN PRN PRN Reason: Constipation Sertraline HCl (Zoloft) 100 mg GT DAILY [facility] Last Admin: 07/23/20 09:00 Dose: 100 mg Documented by: Sodium Chloride () 10 - 40 ml IV UD PRN PRN Reason: SALINE FLUSH Last Admin: 07/23/20 04:03 Dose: 20 ml Documented by: Sodium Chloride ([place] Nasal [place]) 2 spray NASAL Q2H PRN PRN Reason: NASAL DRYNESS Last Admin: 07/09/20 21:40 Dose: 2 spray Documented by: Medical Necessity - Tobacco Use Smoking Status: Never smoker Route of nutrition/ use of supplements: [] Nutritional Intake: [] IV Site: [] Hightower Catheter: [] - Assessment/Plan Antibiotics: [] Assessment/Plan: [] covid - received remdesivir and dexamethasone, also was given plasma. Off pressors, wbc improving, mental status remains poor. Still with fever, on vent. Family discussing goals of care. Cont iv vanc, riya, micafungin. Will follow. D/w Dr. Frye
[2020-07-23] MEDS: Vital AF 1.2 Cal Liquid 1,000 ML 65 ML GT (16:08)
[2020-07-23] MEDS: Insulin Lispro 100 UNIT/ML INSULN.PEN SC ×2 (17:49→23:44)
[2020-07-23 18:00] LABS: Bedside Glucose 188 mg/dL (70-110)
[2020-07-23] MEDS: Furosemide 500 MG in Empty Viaflex 50 mL 1 EACH CONT INF (18:36)
[2020-07-23] MEDS: Atorvastatin Calcium 20 MG Tablet GT (20:58)
[2020-07-23 21:25] LABS: Bedside Glucose 213 mg/dL (70-110)
[2020-07-24] VITALS (26 sets, daily range): BP systolic 81–128; BP diastolic 39–80; PULSE 40–126; RESP 11–31; TEMP 37.6–38.2; O2SAT 43–95
[2020-07-24 00:10] LABS: Bedside Glucose 228 mg/dL (70-110)
--- NOTE | 2020-07-24 01:26 | NURSING ---
Pt has increased alertness and ability to move left arm toward ETT. Restraint ordered and applied to prevent pt from looping arm around tubes.
--- NOTE | 2020-07-24 02:50 | NURSING ---
Pt is alert, answering questions appropriately, and following commands. Spoke with patient regarding the possibility of pulling the breathing tube today. Pt signified, yes with a head nod when asked if she wanted the tube out. Asked pt if she understood, if we pull the tube out, it is likely that she will . Pt signified, yes she understood.
[2020-07-24] MEDS: 0.9% Saline Lock 10 ML Syringe IV ×2 (03:38→05:07)
[2020-07-24] MEDS: guaiFENesin 10 ML UDC (200MG/10ML) GT ×2 (05:06→10:12)
[2020-07-24 05:21] LABS: Bedside Glucose 70 mg/dL (70-110)
--- NOTE | 2020-07-24 06:10 | PCM.PN.INT ---
Subjective: The patient was seen and examined at the bedside this morning. Events from the last 24 hours have been reviewed. The patient is currently febrile with a T-max of 101.5 ?F in the last 24 hours. She remains hemodynamically stable. However, the patient continues to have high ventilator requirements with an FiO2 of 70% and PEEP of 10. The patient diuresed 3.2 L in the last 24 hours. She is now overall net +13 L for the hospital admission. The patient did shake her head yes when questioned overnight by nursing staff regarding her desire to have the endotracheal tube removed. The patient is currently alert and following simple commands. Once again, I did speak with the patient's sister this morning, who is the medical POA, and she once again indicated a desire to have the patient's endotracheal tube removed and the patient made comfortable. Objective: The patient's most recent lab work, culture data and imaging studies have all been personally reviewed. Surface echocardiogram from April 2019 revealed a mildly dilated LV with severe segmental systolic dysfunction and an ejection fraction of 20%. Coronavirus PCR was positive on July 08. Infectious work-up has only revealed Sheryl albicans in the patient's urine and sputum cultures dated July 16. General: Lethargic, - - Remains intubated and mechanically ventilated. HEENT: Normocephalic Oral: Moist Mucosa, - - Endotracheal and OG tubes remain in place Neck: Supple, No Nodes, Trachea Midline Lungs: No rhonchi, No wheeze, No rales, Diminished, Tachypneic Cardiovascular: Normal S1, Normal S2, Irregular Rate, Tachycardic Abdomen: Bowel Sounds Present, Soft, Non Tender, Obese Extremities: No clubbing, No cyanosis, Edema Skin: No breakdown Musculoskeletal: No Muscle Wasting Lymphatic: No Cervical, Supraclavicular, or Inguinal Adenopathy Neurological: - - No focal neurological deficits. Not currently responding to verbal stimulation. Vital Signs Temp Pulse Resp BP Pulse Ox 100.7 F H 111 H 27 H 116/54 L 94 07/24/20 06:00 07/24/20 06:00 07/24/20 06:00 07/24/20 06:00 07/24/20 06:00 Oxygen Flow Rate (L/min) 10 Oxygen Delivery Method Mechanical Ventilator Weight: 278 lb 14.156 oz Body Mass Index (BMI) 48.9 Finger Stick Blood Glucose 88 Intake and Output for Last 24 Hours 07/22/20 07/23/20 07/24/20 23:59 23:59 23:59 Intake Total 2685.53 / 3006.53 3377.95 / 3377.95 496.23 / 496.23 Output Total 4400 / 5162 6612 / 6612 1974 Balance -1714.47 / -2155.47 -3234.05 / -3234.05 -1478.77 / -1478.77 Labs (Last 48 Hours) 07/18/20 07/18/20 07/19/20 05:27 10:50 05:25 WBC RBC Hgb Hct MCV MCH MCHC RDW Std Deviation RDW Coeff of Rahel Plt Count MPV Immature Gran % (Auto) Neut % (Auto) Lymph % (Auto) Canyon % (Auto) Eos % (Auto) Baso % (Auto) Absolute Neuts (auto) Absolute Lymphs (auto) Nucleated RBC % Differential Comment Diff Path Review Reviewed Reviewed Platelet Estimate Ovalocytes Sodium Potassium Chloride Carbon Dioxide Anion Gap BUN Creatinine Estim Creat Clear Calc Est GFR (MDRD) Af Amer Est GFR (MDRD) Non-Af BUN/Creatinine Ratio Glucose Calcium Vancomycin Trough POC Glucose Crossmatch See Detail 07/20/20 07/21/20 07/22/20 04:45 05:00 04:20 WBC RBC Hgb Hct MCV MCH MCHC RDW Std Deviation RDW Coeff of Rahel Plt Count MPV Immature Gran % (Auto) Neut % (Auto) Lymph % (Auto) Canyon % (Auto) Eos % (Auto) Baso % (Auto) Absolute Neuts (auto) Absolute Lymphs (auto) Nucleated RBC % Differential Comment SCANNED Diff Path Review Reviewed Reviewed Reviewed Platelet Estimate MOD DEC Ovalocytes Sodium Potassium Chloride Carbon Dioxide Anion Gap BUN Creatinine Estim Creat Clear Calc Est GFR (MDRD) Af Amer Est GFR (MDRD) Non-Af BUN/Creatinine Ratio Glucose Calcium Vancomycin Trough POC Glucose Crossmatch 07/22/20 07/22/20 07/22/20 04:20 06:06 10:32 WBC RBC Hgb Hct MCV MCH MCHC RDW Std Deviation RDW Coeff of Rahel Plt Count MPV Immature Gran % (Auto) Neut % (Auto) Lymph % (Auto) Canyon % (Auto) Eos % (Auto) Baso % (Auto) Absolute Neuts (auto) Absolute Lymphs (auto) Nucleated RBC % Differential Comment Diff Path Review Platelet Estimate Ovalocytes Sodium 149 H Potassium 4.5 Chloride 117 H Carbon Dioxide 26.0 Anion Gap 6 BUN 116 H* Creatinine 1.42 H Estim Creat Clear Calc 28.74 Est GFR (MDRD) Af Amer 47 L Est GFR (MDRD) Non-Af 39 L BUN/Creatinine Ratio 81.7 H Glucose 135 H Calcium 8.0 L Vancomycin Trough POC Glucose 128 H 133 H Crossmatch 07/22/20 07/22/20 07/23/20 17:21 23:30 01:54 WBC RBC Hgb Hct MCV MCH MCHC RDW Std Deviation RDW Coeff of Rahel Plt Count MPV Immature Gran % (Auto) Neut % (Auto) Lymph % (Auto) Canyon % (Auto) Eos % (Auto) Baso % (Auto) Absolute Neuts (auto) Absolute Lymphs (auto) Nucleated RBC % Differential Comment Diff Path Review Platelet Estimate Ovalocytes Sodium Potassium Chloride Carbon Dioxide Anion Gap BUN Creatinine Estim Creat Clear Calc Est GFR (MDRD) Af Amer Est GFR (MDRD) Non-Af BUN/Creatinine Ratio Glucose Calcium Vancomycin Trough POC Glucose 138 H 106 35 L* Crossmatch 07/23/20 07/23/20 07/23/20 02:18 03:22 04:05 WBC 16.5 H RBC 3.14 L Hgb 8.7 L Hct 29.8 L MCV 94.9 MCH 27.7 MCHC 29.2 L RDW Std Deviation 56.8 H RDW Coeff of Rahel 21.4 H Plt Count 74 L MPV 0.0 L Immature Gran % (Auto) 5.000 H Neut % (Auto) 67.6 Lymph % (Auto) 5.3 L Canyon % (Auto) 19.9 H Eos % (Auto) 1.9 Baso % (Auto) 0.3 Absolute Neuts (auto) 11.2 H Absolute Lymphs (auto) 0.88 Nucleated RBC % 2.4 Differential Comment SCANNED Diff Path Review May foll Platelet Estimate MOD DEC Ovalocytes 1+ Sodium Potassium Chloride Carbon Dioxide Anion Gap BUN Creatinine Estim Creat Clear Calc Est GFR (MDRD) Af Amer Est GFR (MDRD) Non-Af BUN/Creatinine Ratio Glucose Calcium Vancomycin Trough POC Glucose 130 H 81 Crossmatch 07/23/20 07/23/20 07/23/20 04:05 05:39 08:06 WBC RBC Hgb Hct MCV MCH MCHC RDW Std Deviation RDW Coeff of Rahel Plt Count MPV Immature Gran % (Auto) Neut % (Auto) Lymph % (Auto) Canyon % (Auto) Eos % (Auto) Baso % (Auto) Absolute Neuts (auto) Absolute Lymphs (auto) Nucleated RBC % Differential Comment Diff Path Review Platelet Estimate Ovalocytes Sodium 151 H Potassium 4.0 Chloride 115 H Carbon Dioxide 28.0 Anion Gap 8 BUN 122 H* Creatinine 1.61 H Estim Creat Clear Calc 25.35 Est GFR (MDRD) Af Amer 41 L Est GFR (MDRD) Non-Af 34 L BUN/Creatinine Ratio 75.8 H Glucose 108 H Calcium 7.8 L Vancomycin Trough POC Glucose 94 95 Crossmatch 07/23/20 07/23/20 07/23/20 09:20 12:03 17:39 WBC RBC Hgb Hct MCV MCH MCHC RDW Std Deviation RDW Coeff of Rahel Plt Count MPV Immature Gran % (Auto) Neut % (Auto) Lymph % (Auto) Canyon % (Auto) Eos % (Auto) Baso % (Auto) Absolute Neuts (auto) Absolute Lymphs (auto) Nucleated RBC % Differential Comment Diff Path Review Platelet Estimate Ovalocytes Sodium Potassium Chloride Carbon Dioxide Anion Gap BUN Creatinine Estim Creat Clear Calc Est GFR (MDRD) Af Amer Est GFR (MDRD) Non-Af BUN/Creatinine Ratio Glucose Calcium Vancomycin Trough 26.2 H POC Glucose 114 H 188 H Crossmatch 07/23/20 07/23/20 07/24/20 20:55 23:43 05:02 WBC RBC Hgb Hct MCV MCH MCHC RDW Std Deviation RDW Coeff of Rahel Plt Count MPV Immature Gran % (Auto) Neut % (Auto) Lymph % (Auto) Canyon % (Auto) Eos % (Auto) Baso % (Auto) Absolute Neuts (auto) Absolute Lymphs (auto) Nucleated RBC % Differential Comment Diff Path Review Platelet Estimate Ovalocytes Sodium Potassium Chloride Carbon Dioxide Anion Gap BUN Creatinine Estim Creat Clear Calc Est GFR (MDRD) Af Amer Est GFR (MDRD) Non-Af BUN/Creatinine Ratio Glucose Calcium Vancomycin Trough POC Glucose 213 H 228 H 70 Crossmatch Clinical Impression(s) from Imaging Studies Chest X-Ray 07/08/20 19:38 IMPRESSION: Very low lung volumes. Probable mild congestion and interstitial edema. Multifocal atelectasis and/or infiltrates not excluded. Electronically Signed: Maurice Barnett MD at 20:00 EDT , Service support , Chest X-Ray 07/10/20 05:55 IMPRESSION: Worsening of aeration as outlined above compared to the most recent examination. Opacification left retrocardiac space may be due to increased rotation of the patient and positioning. Small left pleural effusion suspected. Electronically Signed: Sulma Harmon MD at 5:50 EDT , Service support , Chest X-Ray 07/11/20 05:25 IMPRESSION: Stable infiltrates in the right lung. Mild increased infiltrate in the left upper lobe. Electronically Signed: Alexis Morales at 12:13 EDT , Service support , Chest X-Ray 07/12/20 09:18 IMPRESSION: 1. Status post intubation and enteric tube placement. 2. Bilateral infiltrates worse than the previous exam. Electronically Signed: Hadley Boyd MD at 10:06 EDT Tel , Service support , Chest X-Ray 07/19/20 09:42 IMPRESSION: Favorable change. Significant clearing of bilateral multilobar pulmonary infiltrates. Electronically Signed: Jonathan Huynh MD ([place]) at 10:30 EDT , Service support , Chest X-Ray 07/23/20 00:42 IMPRESSION: 1. The tip of the endotracheal tube is located 1.7 cm proximal to the erin. 2. Unchanged appearance of bilateral heterogeneous airspace consolidations. Electronically Signed: Amy Francis MD at 1:24 EDT , Service support , Medical Necessity - Tobacco Use Smoking Status: Never smoker Assessment/Plan All Active Problems (Last Reviewed 01/22/20 @ 15:[address] Philipp Ybarra MD) ALICIA (acute kidney injury) (Acute) Pneumonia due to COVID-19 virus (Acute) RECOMMENDATIONS: 1. Following discussion with the patient's family, plan is to proceed with palliative withdrawal of life support. 2. Orders for palliative medications have been placed. 3. CODE STATUS to be updated to DNR comfort care. IMPRESSIONS: 1. Acute hypoxemic respiratory failure secondary to ARDS due to COVID pneumonia The patient initially presented to the hospital with symptoms concerning for coronavirus infection and subsequently tested positive on July 08. Although initially she was on very minimal supplemental oxygen, the patient decompensated from a respiratory perspective over the course of the ensuing days. Chest x-ray revealed progressive bilateral infiltrates. Although attempts were made to utilize noninvasive positive pressure ventilatory support, the patient continued to decompensate from a clinical perspective and had to be intubated on the morning of July 12. The patient completed a treatment course of Decadron and Remdesevir. She also received convalescent plasma on July 11. She remains significantly volume overloaded and is in need of further diuresis. 2. Distributive shock Resolved. Most likely secondary to sedative medication use, as the patient became hemodynamically unstable after she was started on the aforementioned medications following intubation. However, given the progressive nature of the infiltrates noted on x-ray, she was placed on empiric antimicrobials as well, should she have an underlying superimposed bacterial infection. 3. Acute on chronic kidney disease Likely prerenal in etiology and related to ischemic ATN in the setting #2. Continue current supportive measures. Nephrology is continuing to follow. 4. History of nonischemic cardiomyopathy/heart failure with reduced ejection fraction Plan to continue diuresis as tolerated by renal function and hemodynamic status. 5. Morbid obesity/diabetes mellitus/chronic kidney disease/depression/high risk for sleep disordered breathing/CODE STATUS Complicates care, management, recovery and prognosis. Continue sliding scale insulin regimen. Physical therapy to work with the patient once medically stabilized. TIME: 32 minutes of critical care time, independent of procedures, was spent addressing the patient's acute hypoxemic respiratory failure, ARDS secondary to COVID pneumonia, distributive shock, acute on chronic kidney disease, history of congestive heart failure, coordination of goals of care, review of all data and collaboration with care team. [id number]) [id number] Critical care first hour
[2020-07-24 06:22] LABS: Absolute Lymphocyte Count 0.59 X10^3/uL (0.83-4.51); Absolute Neutrophil Count 6.4 X10^3/uL (2.0-7.7); Basophil# 0.02 X10^3/uL; Basophil% 0.2 % (0-1); Differential Indicated SCAN CRITERIA MET; Eosinophils% 2.2 % (0-5); Hematocrit 42.9 % (37-47); Hemoglobin 12.2 g/dL (12.0-15.0); Lymphocyte # 0.59 X10^3/ul (4.0); Lymphocyte % 6.5 % (19-41); Mean Corp Hgb Conc 28.4 g/dL (32-36); Mean Corpuscular Hgb 27.4 pg (27.0-32.0); Mean Corpuscular Volume 96.2 fL (81-99); Monocyte# 1.68 X10^3/uL; Monocyte% 18.6 % (0-10); NRBC Flagged by Analyzer 2.3 % (0-5); Neutrophil # 6.38 X10^3/uL (2.7-7.7); Neutrophil % 70.6 % (47-70); POSITIVE COUNT YES; POSITIVE DIFFERENTIAL YES; POSITIVE MORPHOLOGY YES; Platelet Count 67 K/mm3 (150-450); RBC Distribution Width CV 22.5 % (11.6-14.6); RBC Distribution Width SD 62.2 fl (35.1-43.9); Red Blood Count 4.46 M/mm3 (4.2-5.4)
[2020-07-24 06:27] LABS: Differential Comment SCANNED; Ovalocyte RARE; Platelet Estimate MOD DEC (ADEQ)
[2020-07-24 06:50] LABS: Anion Gap 8 (5-15); BUN 129 mg/dL (7-18); BUN/Creat Ratio 79.6 RATIO (10-20); Calcium,Total 7.6 mg/dL (8.5-10.1); Chloride 113 mmol/L (98-107); Creatinine, Serum 1.62 mg/dL (0.55-1.02); EST Glomerular Filtration Rate 33 mL/min (>60); Est Glom Filt Rate - Afr Amer 40 mL/min (>60); Estimated Creatinine Clearance 25.19 ml/min; Glucose 69 mg/dL (74-106); Potassium 3.4 mmol/L (3.5-5.1); Sodium Level 152 mmol/L (136-145)
--- NOTE | 2020-07-24 08:13 | PN_ITS ---
Patient Problems: Active and Suspected Problems (Last Reviewed 01/22/20 @ 15:[address] Philipp Ybarra MD) ALICIA (acute kidney injury) (Acute) Reason for Visit: Follow-up acute hypoxic respiratory failure, acute kidney injury, ARDS due to COVID-19 bilateral pneumonia Objective: Patient was intubated. On FiO2 60%, 450 mill, RR 14, PEEP of 10. Persistent low-grade fever, T-max 100.7 Fahrenheit along with tachycardia. On Lasix drip. Breathing over the vent, spontaneous breathing 23 to 28/min. After the family requested DNR CC and terminal extubation, patient got extubated at 10:19 AM. Physical exam General: -Lethargic, sleepy. HEENT: Opens eyes. Neck: Supple, No JVD, Negative Carotid Bruits Lungs: -On vent support. FiO2 60% PEEP 10 Cardiovascular: Normal S1, Normal S2, No murmurs, Irregular Rate, Tachycardic Abdomen: Bowel Sounds Present, Soft, Non Tender, Non-Distended, Fecal bag present. : Urine output good, 5700 mL last 24 hours. Hightower catheter present. Color urine. Positive fluid balance 12.6 L. Extremities: Edema Skin: Rash Present - Right arm and forearm hematoma with reddish, purplish rash. Right PICC line is present Musculoskeletal: Arthritic Changes Neurological: - - Neuro exam unobtainable patient is lightly sedated. Vitals/I&O's: Vital Signs Temp Pulse Resp BP Pulse Ox 100.7 F H 111 H 27 H 116/54 L 94 07/24/20 06:00 07/24/20 06:00 07/24/20 06:00 07/24/20 06:00 07/24/20 06:00 Oxygen Flow Rate (L/min) 10 Oxygen Delivery Method Mechanical Ventilator Weight: 278 lb 14.156 oz Body Mass Index (BMI) 48.9 Finger Stick Blood Glucose 88 Intake and Output for Last 24 Hours 07/22/20 07/23/20 07/24/20 23:59 23:59 23:59 Intake Total 2685.53 / 3006.53 3377.95 / 3377.95 517.48 / 517.48 Output Total 4400 / 5162 6612 / 6612 1974 Balance -1714.47 / -2155.47 -3234.05 / -3234.05 -1457.52 / -1457.52 Microbiology Past 72 Hours 07/16/20 09:10 Blood Culture (Wb) - Line Draw Blood Culture - Final No growth in 5 days. Laboratory Results 07/23/20 08:06: POC Glucose 95 07/23/20 09:20: Vancomycin Trough 26.2 H 07/23/20 12:03: POC Glucose 114 H 07/23/20 17:39: POC Glucose 188 H 07/23/20 20:55: POC Glucose 213 H 07/23/20 23:43: POC Glucose 228 H 07/24/20 04:45: WBC 9.0, RBC 4.46, Hgb 12.2, Hct 42.9, MCV 96.2, MCH 27.4, MCHC 28.4 L, RDW Std Deviation 62.2 H, RDW Coeff of Rahel 22.5 H, Plt Count 67 L, Immature Gran % (Auto) 1.900 H, Neut % (Auto) 70.6 H, Lymph % (Auto) 6.5 L, [place] % (Auto) 18.6 H, Eos % (Auto) 2.2, Baso % (Auto) 0.2, Absolute Neuts (auto) 6.4, Absolute Lymphs (auto) 0.59 L, Nucleated RBC % 2.3, Differential Comment SCANN ED, Diff Path Review May foll, Platelet Estimate MOD DEC, Ovalocytes RARE 07/24/20 04:45: Sodium 152 H, Potassium 3.4 L, Chloride 113 H, Carbon Dioxide 31.0, Anion Gap 8, BUN 129 H*, Creatinine 1.62 H, Estim Creat Clear Calc 25.19, Est GFR (MDRD) Af Amer 40 L, Est GFR (MDRD) Non-Af 33 L, BUN/Creatinine Ratio 79.6 H, Glucose 69 L, Calcium 7.6 L 07/24/20 05:02: POC Glucose 70 Current Medications Acetaminophen (Tylenol Liquid) 650 mg GT Q6H PRN PRN PRN Reason: Pain Score 1-10/Temp > 100.7 F Last Admin: 07/23/20 14:05 Dose: 650 mg Documented by: Albuterol Sulfate (Proair Hfa (Sp) Surgery/Vent Pts) 1 puff INHALATION Q2H PRN PRN PRN Reason: SHORTNESS OF BREATH/WHEEZING Atorvastatin Calcium (Lipitor) 20 mg GT QHS [facility] Last Admin: 07/23/20 20:58 Dose: 20 mg Documented by: Calamine/Phenol (Calmoseptine Ointment) 1 applic TOPICAL BID SUNNY; Protocol Last Admin: 07/23/20 20:59 Dose: 1 applicatio Documented by: Chlorhexidine Gluconate () 15 ml PO BID SUNNY Last Admin: 07/23/20 19:36 Dose: 15 ml Documented by: Dextrose (D50w Syringe) 0 gm IV X1 PRN; Protocol PRN Reason: Hypoglycemia Last Admin: 07/23/20 01:59 Dose: 25 gm Documented by: Famotidine (Pepcid) 20 mg GT DAILY [facility] Last Admin: 07/23/20 09:01 Dose: 20 mg Documented by: Glucagon () 1 mg IM .X1 PRN PRN Reason: Hypoglycemia Guaifenesin (Robitussin) 10 ml GT Q6 [facility] Last Admin: 07/24/20 05:06 Dose: 10 ml Documented by: Sodium Chloride () 250 mls @ 15 mls/hr IV .[id number] PRN PRN Reason: Additional IVPB Infusion Last Infusion: 07/24/20 08:02 Dose: Infused Documented by: Fentanyl Citrate 1,000 mcg/ (Sodium Chloride) 100 mls @ 5 mls/hr CONT INF .Q20H [facility]; Protocol Last Titration: 07/24/20 06:30 Dose: 0 mcg/hr, 0 mls/hr Documented by: Enteral Nutritional Formula (Vital Af 1.2 Wong Liquid) 1,000 mls @ 65 mls/hr GT .[id number] [facility] Last Admin: 07/24/20 05:26 Dose: Not Given Documented by: Micafungin Sodium 100 mg/ (Dextrose) 105 mls @ 100 mls/hr IV Q24 [facility] Last Infusion: 07/23/20 10:20 Dose: Infused Documented by: Furosemide 500 mg/ N/A 50 mls @ 1 mls/hr CONT INF .Q50H [facility] Last Infusion: 07/24/20 06:00 Dose: 10 mg/hr, 1 mls/hr Documented by: Meropenem 1 gm/ Sodium (Chloride) 100 mls @ 33 mls/hr IV Q12 [facility] Last Infusion: 07/24/20 00:01 Dose: Infused Documented by: Insulin Glargine (Lantus (Bk)) 90 units SC DAILY@2200 SUNNY Last Admin: 07/23/20 20:58 Dose: 90 units Documented by: Insulin Human Lispro (Humalog Kwikpen (Bk)) 0 unit SC Q6H SUNNY; Protocol Last Admin: 07/24/20 05:10 Dose: Not Given Documented by: Nystatin (Mycostatin Powder) 1 applic TOPICAL 4X/DAY PRN PRN; Protocol PRN Reason: SKIN Last Admin: 07/21/20 22:20 Dose: 1 applicatio Documented by: Ondansetron HCl (Zofran) 4 mg IV Q6H PRN PRN PRN Reason: NAUSEA/VOMITING Last Admin: 07/11/20 11:13 Dose: 4 mg Documented by: Senna/Docusate Sodium (Senokot-S, Brittney-Colace) 2 tablet GT BID PRN PRN PRN Reason: Constipation Sertraline HCl (Zoloft) 100 mg GT DAILY [facility] Last Admin: 07/23/20 09:00 Dose: 100 mg Documented by: Sodium Chloride () 10 - 40 ml IV UD PRN PRN Reason: SALINE FLUSH Last Admin: 07/24/20 05:07 Dose: 20 ml Documented by: Sodium Chloride (Summit Nasal [place]) 2 spray NASAL Q2H PRN PRN Reason: NASAL DRYNESS Last Admin: 07/09/20 21:40 Dose: 2 spray Documented by: STROKE Vital Signs/Narrative: Vital Signs Temp Pulse Resp BP Pulse Ox 07/24/20 06:00 100.7 F H 111 H 27 H 116/54 L 94 07/24/20 05:00 100.7 F H 113 H 25 H 121/56 H 93 07/24/20 04:55 102 H 24 H 93 Medical Necessity - Tobacco Use Smoking Status: Never smoker Assessment/Plan All Active Problems (Last Reviewed 01/22/20 @ 15:[address] Philipp Ybarra MD) ALICIA (acute kidney injury) (Acute) Pneumonia due to COVID-19 virus (Acute) The patient is a 69 year old F with history of chronic systolic heart failure status post AICD, nonischemic cardiomyopathy came to ED with shortness of breath, generalized weakness, fever with chills for last 4 days and COVID-19 PCR positive, chest x-ray findings consistent with COVID-19 pneumonia. Chest x-ray done in the ER shows low lung volume with mild congestion, multifocal atelectasis and infiltrates although chest x-ray is not optimal quality. 1. Acute hypoxic respiratory failure with ARDS secondary to bilateral COVID-19 pneumonia: Patient was admitted on COVID called floor and then transferred to ICU secondary to acute hypoxic respiratory failure requiring intubation. Patient still has low-grade fever, tachycardic. Not on vasopressor. Patient on IV vancomycin, meropenem and micafungin. On IV Lasix drip for volume overload. Patient is being seen by bulk gas specialist. Patient was terminally extubated at the request of family and the CODE STATUS changed to DNR CC. 2. Chronic systolic heart failure with mild to moderate coronary artery disease with predominant nonischemic cardiomyopathy status post AICD: Patient had a heart cath in 2016 which shows 30 to 40% LAD and mid RCA, 60 to 70% and ostial LCD 30%. 2D echo as mentioned below. Echo April 2019 Mildly dilated left ventricle. Severe segmental systolic dysfunction (see wall motion). The estimated ejection fraction is 20 %. The left atrium appears enlarged. Trivial mitral valve insufficiency. Trivial tricuspid valve insufficiency. Mild focal aortic valve calcification. Continue home medications including torsemide, lisinopril, Coreg. Patient not on antiplatelet agent at home. 3. Right arm and forearm hematoma with PICC line: Patient was on IV heparin drip which is discontinued. Platelet count is low but has been stable. 4. Acute blood loss anemia with history of lower GI bleed secondary to diverticular bleed: Acute blood loss anemia probably secondary to combination of heparin drip, right upper extremity hematoma and acute illness. Patient was transfused 2 units of PRBC Patient was last admitted in October 2019 for rectal bleed secondary to diverticulosis. Patient had colonoscopy by Dr. Comer which showed 1 5 mm polyp in descending colon was removed. 5. Distributive most likely secondary to sedative, medication use, following intubation. Currently patient is off vasopressor. 6. Diabetes mellitus type 2 uncontrolled with A1c of 12.2 in July 2019. On Lantus 100 units twice daily as well as Accu-Cheks meds sliding scale. Patient on IV Decadron. 5. Hypertension, uncontrolled: Blood pressure is 156/91. Monitor blood pressure and titrate the dose of lisinopril accordingly. 6. Acute kidney injury chronic kidney disease stage III: Patient admitting creatinine was 1.25 which went up maximal 3.54 and is gradually improving, last one 1.6. Increase in BUN. Patient on Lasix drip. 7. Depression ~ on SSRI; continued 8. DVT prophylaxis: Bilateral SCDs Total time of the visit including total time spent in counseling or coordination of care, (more than 50% of the total time, spent in obtaining medical information from nurses and other ancillary care providers), discussion with consultants, review of labs and imaging is 30 minutes. Clinical Impression(s) from Imaging Studies Chest X-Ray 07/11/20 05:25 IMPRESSION: Stable infiltrates in the right lung. Mild increased infiltrate in the left upper lobe. Chest X-Ray 07/12/20 09:18 IMPRESSION: 1. Status post intubation and enteric tube placement. 2. Bilateral infiltrates worse than the previous exam. Chest X-Ray 07/19/20 09:42 IMPRESSION: Favorable change. Significant clearing of bilateral multilobar pulmonary infiltrates. Chest X-Ray 07/23/20 00:42 IMPRESSION: 1. The tip of the endotracheal tube is located 1.7 cm proximal to the erin. 2. Unchanged appearance of bilateral heterogeneous airspace consolidations. Inpatient E&M: [id number] [facility] L3
[2020-07-24] MEDS: Chlorhexidine 15 ML PO (09:10)
[2020-07-24] MEDS: Sertraline 100 MG Tablet GT (10:12)
[2020-07-24] MEDS: Famotidine 20 MG Tablet GT (10:13)
[2020-07-24] MEDS: Morphine 2 MG/ML Syringe IV ×2 (10:22→13:23)
--- NOTE | 2020-07-24 10:22 | PCM.PN.ID ---
Patient Problems: Active and Suspected Problems (Last Reviewed 01/22/20 @ 15:[address] Philipp Ybarra MD) ALICIA (acute kidney injury) (Acute) Subjective: Pt has requested ETT removal, currently sleeping, remains on vent this AM. - Physical Exam Vitals/I&O's: Vital Signs Temp Pulse Resp BP Pulse Ox 100.6 F H 105 H 21 H 113/80 93 07/24/20 08:00 07/24/20 09:00 07/24/20 09:00 07/24/20 09:00 07/24/20 09:00 Oxygen Flow Rate (L/min) 10 Oxygen Delivery Method Mechanical Ventilator Weight: 126.5 kg Body Mass Index (BMI) 48.9 Finger Stick Blood Glucose 88 Intake and Output for Last 24 Hours 07/22/20 07/23/20 07/24/20 23:59 23:59 23:59 Intake Total 2685.53 / 3006.53 3377.95 / 3377.95 550.48 / 550.48 Output Total 4400 / 5162 6612 / 6612 2525 / 2525 Balance -1714.47 / -2155.47 -3234.05 / -3234.05 -1974.52 / -1974.52 General: No apparent distress Lungs: Clear to auscultation, Normal air movement Cardiovascular: Regular rate, Regular Rhythm Abdomen: Soft, Non Tender, Non-Distended Skin: No rashes Microbiology Past 72 Hours 07/16/20 09:10 Blood Culture (Wb) - Line Draw Blood Culture - Final No growth in 5 days. Laboratory Results 07/23/20 08:06: POC Glucose 95 07/23/20 12:03: POC Glucose 114 H 07/23/20 17:39: POC Glucose 188 H 07/23/20 20:55: POC Glucose 213 H 07/23/20 23:43: POC Glucose 228 H 07/24/20 04:45: WBC 9.0, RBC 4.46, Hgb 12.2, Hct 42.9, MCV 96.2, MCH 27.4, MCHC 28.4 L, RDW Std Deviation 62.2 H, RDW Coeff of Rahel 22.5 H, Plt Count 67 L, Immature Gran % (Auto) 1.900 H, Neut % (Auto) 70.6 H, Lymph % (Auto) 6.5 L, [place] % (Auto) 18.6 H, Eos % (Auto) 2.2, Baso % (Auto) 0.2, Absolute Neuts (auto) 6.4, Absolute Lymphs (auto) 0.59 L, Nucleated RBC % 2.3, Differential Comment SCANNED, Diff Path Review May foll, Platelet Estimate MOD DEC, Ovalocytes RARE 07/24/20 04:45: Sodium 152 H, Potassium 3.4 L, Chloride 113 H, Carbon Dioxide 31.0, Anion Gap 8, BUN 129 H*, Creatinine 1.62 H, Estim Creat Clear Calc 25.19, Est GFR (MDRD) Af Amer 40 L, Est GFR (MDRD) Non-Af 33 L, BUN/Creatinine Ratio 79.6 H, Glucose 69 L, Calcium 7.6 L 07/24/20 05:02: POC Glucose 70 Current Medications Acetaminophen (Tylenol Liquid) 650 mg GT Q6H PRN PRN PRN Reason: Pain Score 1-10/Temp > 100.7 F Last Admin: 07/23/20 14:05 Dose: 650 mg Documented by: Albuterol Sulfate (Proair Hfa (Sp) Surgery/Vent Pts) 1 puff INHALATION Q2H PRN PRN PRN Reason: SHORTNESS OF BREATH/WHEEZING Atorvastatin Calcium (Lipitor) 20 mg GT QHS [facility] Last Admin: 07/23/20 20:58 Dose: 20 mg Documented by: Calamine/Phenol (Calmoseptine Ointment) 1 applic TOPICAL BID SUNNY; Protocol Last Admin: 07/23/20 20:59 Dose: 1 applicatio Documented by: Chlorhexidine Gluconate () 15 ml PO BID [facility] Last Admin: 07/24/20 09:10 Dose: 15 ml Documented by: Dextrose (D50w Syringe) 0 gm IV X1 PRN; Protocol PRN Reason: Hypoglycemia Last Admin: 07/23/20 01:59 Dose: 25 gm Documented by: Famotidine (Pepcid) 20 mg GT DAILY [facility] Last Admin: 07/24/20 10:13 Dose: 20 mg Documented by: Glucagon () 1 mg IM .X1 PRN PRN Reason: Hypoglycemia Guaifenesin (Robitussin) 10 ml GT Q6 [facility] Last Admin: 07/24/20 10:12 Dose: 10 ml Documented by: Sodium Chloride () 250 mls @ 15 mls/hr IV .[id number] PRN PRN Reason: Additional IVPB Infusion Last Infusion: 07/24/20 08:02 Dose: Infused Documented by: Micafungin Sodium 100 mg/ (Dextrose) 105 mls @ 100 mls/hr IV Q24 [facility] Last Infusion: 07/23/20 10:20 Dose: Infused Documented by: Meropenem 1 gm/ Sodium (Chloride) 100 mls @ 33 mls/hr IV Q12 [facility] Last Admin: 07/24/20 09:14 Dose: 33 mls/hr Documented by: Insulin Glargine (Lantus ([facility])) 90 units SC DAILY@2200 SUNNY Last Admin: 07/23/20 20:58 Dose: 90 units Documented by: Insulin Human Lispro (Humalog Kwikpen ([facility])) 0 unit SC Q6H [facility]; Protocol Last Admin: 07/24/20 05:10 Dose: Not Given Documented by: Lorazepam (Ativan) 1 mg IV Q1H PRN PRN Reason: ANXIETY Morphine Sulfate () 2 - 4 mg IV Q30M PRN PRN Reason: Air hunger, SOB, RR>30 Nystatin (Mycostatin Powder) 1 applic TOPICAL 4X/DAY PRN PRN; Protocol PRN Reason: SKIN Last Admin: 07/21/20 22:20 Dose: 1 applicatio Documented by: Ondansetron HCl (Zofran) 4 mg IV Q6H PRN PRN PRN Reason: NAUSEA/VOMITING Last Admin: 07/11/20 11:13 Dose: 4 mg Documented by: Senna/Docusate Sodium (Senokot-S, Brittney-Colace) 2 tablet GT BID PRN PRN PRN Reason: Constipation Sertraline HCl (Zoloft) 100 mg GT DAILY [facility] Last Admin: 07/24/20 10:12 Dose: 100 mg Documented by: Sodium Chloride () 10 - 40 ml IV UD PRN PRN Reason: SALINE FLUSH Last Admin: 07/24/20 05:07 Dose: 20 ml Documented by: Sodium Chloride ([place] Nasal [place]) 2 spray NASAL Q2H PRN PRN Reason: NASAL DRYNESS Last Admin: 07/09/20 21:40 Dose: 2 spray Documented by: Medical Necessity - Tobacco Use Smoking Status: Never smoker Route of nutrition/ use of supplements: [] Nutritional Intake: [] IV Site: [] Hightower Catheter: [] - Assessment/Plan Antibiotics: [] Assessment/Plan: [] covid - received remdesivir and dexamethasone, also was given plasma. Off pressors, wbc improving, mental status remains poor. Still with fever, on vent. Cont iv riya, micafungin for now. Now DNC-CC. Will follow.
[2020-07-24] MEDS: LORazepam 2 MG/ML Syringe 1 MG IV (10:23)
[2020-07-24] MEDS: Menthol/Lanolin/Calamine/Znox 113 GM Tube 1 APPLIC TOPICAL (10:27)
--- NOTE | 2020-07-24 10:40 | NURSING ---
patient extubated at 1019 to 6L NC, comfort medication given.
--- NOTE | 2020-07-24 10:53 | CASEMGMT ---
DIETER spoke with Pearl Riggs, patient's case repairer from [facility]. SW let her know patient is going to be terminally extubated today. She asked that SW let her know when patient passes. Ness HERMAN MSW
[2020-07-24] MEDS: Dextrose 50%-Water 25 GM/50 ML DISP.SYRIN IV ×3 (12:15→16:12)
[2020-07-24 13:06] LABS: Bedside Glucose 11 mg/dL (70-110)
[2020-07-24 13:06] LABS: Bedside Glucose 116 mg/dL (70-110)
--- NOTE | 2020-07-24 13:07 | PCM.PN.REN ---
Patient Problems: Active and Suspected Problems (Last Reviewed 01/22/20 @ 15:[address] Philipp Ybarra MD) ALICIA (acute kidney injury) (Acute) Subjective: no new events - Physical Exam Vitals/I&O's: Vital Signs Temp Pulse Resp BP Pulse Ox 100.4 F H 107 H 29 H 89/54 L 56 07/24/20 12:00 07/24/20 13:00 07/24/20 13:00 07/24/20 13:00 07/24/20 13:00 Oxygen Flow Rate (L/min) 6 Oxygen Delivery Method Nasal Cannula Weight: 126.5 kg Body Mass Index (BMI) 48.9 Finger Stick Blood Glucose 88 Intake and Output for Last 24 Hours 07/22/20 07/23/20 07/24/20 23:59 23:59 23:59 Intake Total 2685.53 / 3006.53 3377.95 / 3377.95 651.95 / 651.95 Output Total 4400 / 5162 6612 / 6612 3125 / 3125 Balance -1714.47 / -2155.47 -3234.05 / -3234.05 -2473.05 / -2473.05 Comment: discussed with staff Microbiology Past 72 Hours 07/16/20 09:10 Blood Culture (Wb) - Line Draw Blood Culture - Final No growth in 5 days. Laboratory Results 07/23/20 17:39: POC Glucose 188 H 07/23/20 20:55: POC Glucose 213 H 07/23/20 23:43: POC Glucose 228 H 07/24/20 04:45: WBC 9.0, RBC 4.46, Hgb 12.2, Hct 42.9, MCV 96.2, MCH 27.4, MCHC 28.4 L, RDW Std Deviation 62.2 H, RDW Coeff of Rahel 22.5 H, Plt Count 67 L, Immature Gran % (Auto) 1.900 H, Neut % (Auto) 70.6 H, Lymph % (Auto) 6.5 L, [place] % (Auto) 18.6 H, Eos % (Auto) 2.2, Baso % (Auto) 0.2, Absolute Neuts (auto) 6.4, Absolute Lymphs (auto) 0.59 L, Nucleated RBC % 2.3, Differential Comment SCANNED, Diff Path Review March Platelet Estimate MOD DEC, Ovalocytes RARE 07/24/20 04:45: Sodium 152 H, Potassium 3.4 L, Chloride 113 H, Carbon Dioxide 31.0, Anion Gap 8, BUN 129 H*, Creatinine 1.62 H, Estim Creat Clear Calc 25.19, Est GFR (MDRD) Af Amer 40 L, Est GFR (MDRD) Non-Af 33 L, BUN/Creatinine Ratio 79.6 H, Glucose 69 L, Calcium 7.6 L 07/24/20 05:02: POC Glucose 70 07/24/20 12:09: POC Glucose 11 L* 07/24/20 12:28: POC Glucose 116 H Current Medications Acetaminophen (Tylenol Liquid) 650 mg GT Q6H PRN PRN PRN Reason: Pain Score 1-10/Temp > 100.7 F Last Admin: 07/23/20 14:05 Dose: 650 mg Documented by: Albuterol Sulfate (Proair Hfa (Sp) Surgery/Vent Pts) 1 puff INHALATION Q2H PRN PRN PRN Reason: SHORTNESS OF BREATH/WHEEZING Atorvastatin Calcium (Lipitor) 20 mg GT QHS [facility] Last Admin: 07/23/20 20:58 Dose: 20 mg Documented by: Calamine/Phenol (Calmoseptine Ointment) 1 applic TOPICAL BID [facility]; Protocol Last Admin: 07/24/20 10:27 Dose: 1 applicatio Documented by: Chlorhexidine Gluconate () 15 ml PO BID [facility] Last Admin: 07/24/20 09:10 Dose: 15 ml Documented by: Dextrose (D50w Syringe) 0 gm IV X1 PRN; Protocol PRN Reason: Hypoglycemia Last Admin: 07/24/20 12:15 Dose: 25 gm Documented by: Famotidine (Pepcid) 20 mg GT DAILY [facility] Last Admin: 07/24/20 10:13 Dose: 20 mg Documented by: Glucagon () 1 mg IM .X1 PRN PRN Reason: Hypoglycemia Guaifenesin (Robitussin) 10 ml GT Q6 [facility] Last Admin: 07/24/20 10:12 Dose: 10 ml Documented by: Sodium Chloride () 250 mls @ 15 mls/hr IV .[id number] PRN PRN Reason: Additional IVPB Infusion Last Infusion: 07/24/20 08:02 Dose: Infused Documented by: Micafungin Sodium 100 mg/ (Dextrose) 105 mls @ 100 mls/hr IV Q24 [facility] Last Admin: 07/24/20 12:50 Dose: 100 mls/hr Documented by: Meropenem 1 gm/ Sodium (Chloride) 100 mls @ 33 mls/hr IV Q12 [facility] Last Infusion: 07/24/20 12:20 Dose: Infused Documented by: Insulin Glargine (Lantus (Bk)) 90 units SC DAILY@2200 [facility] Last Admin: 07/23/20 20:58 Dose: 90 units Documented by: Insulin Human Lispro (Humalog Kwikpen ([facility])) 0 unit SC Q6H [facility]; Protocol Last Admin: 07/24/20 12:12 Dose: Not Given Documented by: Lorazepam (Ativan) 1 mg IV Q1H PRN PRN Reason: ANXIETY Last Admin: 07/24/20 10:23 Dose: 1 mg Documented by: Morphine Sulfate () 2 - 4 mg IV Q30M PRN PRN Reason: Air hunger, SOB, RR>30 Last Admin: 07/24/20 10:22 Dose: 2 mg Documented by: Nystatin (Mycostatin Powder) 1 applic TOPICAL 4X/DAY PRN PRN; Protocol PRN Reason: SKIN Last Admin: 07/21/20 22:20 Dose: 1 applicatio Documented by: Ondansetron HCl (Zofran) 4 mg IV Q6H PRN PRN PRN Reason: NAUSEA/VOMITING Last Admin: 07/11/20 11:13 Dose: 4 mg Documented by: Senna/Docusate Sodium (Senokot-S, Brittney-Colace) 2 tablet GT BID PRN PRN PRN Reason: Constipation Sertraline HCl (Zoloft) 100 mg GT DAILY [facility] Last Admin: 07/24/20 10:12 Dose: 100 mg Documented by: Sodium Chloride () 10 - 40 ml IV UD PRN PRN Reason: SALINE FLUSH Last Admin: 07/24/20 05:07 Dose: 20 ml Documented by: Sodium Chloride ([place] Nasal [place]) 2 spray NASAL Q2H PRN PRN Reason: NASAL DRYNESS Last Admin: 07/09/20 21:40 Dose: 2 spray Documented by: Medical Necessity - Tobacco Use Smoking Status: Never smoker Assessment/Plan All Active Problems (Last Reviewed 01/22/20 @ 15:[address] Philipp Ybarra MD) ALICIA (acute kidney injury) (Acute) Pneumonia due to COVID-19 virus (Acute) Acute renal failure Covid pneumonia severe Respiratory failure, currently on ventilator discussed with staff patient is now DNRCC terminal extubation today
--- NOTE | 2020-07-24 14:20 | CHAPLAIN ---
Type of Pastoral Visit ___ Initial Visit ___ Follow-up Visit ___ On-call Visit ___ General Patient Visit ___ Spiritual Assessment ___ Family Conference ___ Bereavement ___ Rapid Response ___ Code Blue _x__ Other (describe below) Pastoral Care Referral From ___ Patient ___ Family _x__ Nurse ___ Physician ___ Sprayer Automatic Spray Machine ___ Medical Fee Clerk ___ Other (describe below) Sacrament/Intervention ___ Active listening ___ Anointing ___ Shinto ___ Bereavement ___ Communion ___ Mary exploration ___ ___ Life review _x__ Prayer ___ Reconciliation ___ Sacrament of Sick _x__ Supportive presence ___ Wedding ___ Other (describe below) Pastoral Comments patient was extubated earlier today; made aware of situation and this show dog trainer then stood at room entrance for moment of reflection and prayer; no family is present or available
[2020-07-24 14:36] LABS: Bedside Glucose 63 mg/dL (70-110)
[2020-07-24 14:36] LABS: Bedside Glucose 100 mg/dL (70-110)
[2020-07-24 15:15] LABS: Bedside Glucose 74 mg/dL (70-110)
[2020-07-24 18:16] LABS: Bedside Glucose 81 mg/dL (70-110)
--- NOTE | 2020-07-24 19:23 | NURSING ---
Patient dropped heart rate to 40s, ventricular rhythm. Saturations not reading, no BP reading. RR 0. This nurse went to patient bedside and found patient with no heart sounds heard, no pulse. No respirations. Verified with second RN, Dorota Carson. Time of 1899. Dr. Donaldson notified, family notified.
--- NOTE | 2020-07-24 19:23 | PCM.HOSP.N ---
Hospitalist Note Notified by nursing staff that patient passed: Time of : 1899 Date of : 07/24/20
--- NOTE | 2020-07-25 07:01 | PCM.DEATH ---
Preliminary Cause of Acute hypoxic respiratory failure with ARDS secondary to bilateral COVID-19 Date of Admission: 07/08/20 Date of : 07/24/20 - Principle Diagnosis Acute hypoxic respiratory failure with ARDS secondary to bilateral COVID-19 pneumonia Distributive shock Acute blood loss anemia secondary to heparin drip with right upper extremity hematoma Acute kidney injury on chronic kidney disease stage III Chronic systolic heart failure, coronary artery disease predominant nonischemic cardiomyopathy status post AICD Diabetes mellitus type 2 Hypertension Depression Morbid obesity and possible obesity hypoventilation syndrome, undiagnosed Hospital Course The patient is a 69 year old F with history of chronic systolic heart failure status post AICD, nonischemic cardiomyopathy came to ED with shortness of breath, generalized weakness, fever with chills for last 4 days and COVID-19 PCR positive, chest x-ray findings consistent with COVID-19 pneumonia. Chest x-ray done in the ER shows low lung volume with mild congestion, multifocal atelectasis and infiltrates although chest x-ray is not optimal quality. The patient had prolonged course on COVID called floor and then transferred to ICU after worsening of acute hypoxic respiratory failure secondary to ARDS which required intubation. Patient required 70% FiO2, PEEP 10 on prolonged ventilator. Patient continued to have low-grade fever and tachycardia. Patient had Decadron, Remdesivir and convalescent plasma treatment but did not improve. Patient also on broad-spectrum antibiotic and antifungal; vancomycin, meropenem and micafungin. Patient was co-managed with transportation engineering technician and infectious disease consultants intern. Patient was also on IV Lasix drip for volume overload. Patient 1 time developed distributive shock probably secondary to sedative, medication use following intubation and required transient vaso-pressure which was discontinued later on. She also had acute blood loss anemia secondary to heparin drip and developed right upper extremity hematoma. Patient has history of lower GI bleed secondary to diverticular bleed during previous admission in October 2019 and had colonoscopy by Dr. Comer. Other acute illness acute kidney injury on CKD stage III. Patient has multiple comorbidities including chronic systolic heart failure, mild to moderate coronary artery disease, predominant nonischemic cardiomyopathy status post AICD. Morbid obesity, possible obstructive sleep apnea/obesity hypoventilation syndrome which has not evaluated in the past. Despite maximal effort patient continued to deteriorate and patient wished for terminal extubation as per the night nurse. Patient awake in the morning and she was in minimal fentanyl drip and expressed her desire for ET tube removal in order to make her comfortable. CODE STATUS changed to DNR CC, comfort care. Event Specialist Product Demonstrator further talk to the patient's power of civil litigation attorney and she also expressed her desire for terminal extubation. Patient was terminally extubated, detached from ventilator in order to follow risk for palliative withdrawal of life support measures. Patient finally declared at 1900 hours on 07/24/2020 Inpatient E&M: [id number] Disch Hosp
[2020-07-25 07:07] LABS: Bedside Glucose 65 mg/dL (70-110)
[2020-07-25 07:07] LABS: Bedside Glucose 120 mg/dL (70-110)
[2020-07-25 09:36] LABS: Pathologist Review Reviewed
[2020-07-25 12:10] LABS: Pathologist Review Reviewed
== END 2020-07-24 19:00 | DRG 207 ==
LOC: ED 20:22 → ICU 21:13 → MS2 07-10 07:36 → ICU 07-12 12:33
PROVIDERS: Hospitalist; Internal Medicine; Internal Medicine Critical Care Medicine; Internal Medicine Infectious Disease; Admitting Provider Internal Medicine; Emergency Provider Emergency Medicine; Visit Provider Internal Medicine
DX: U07.1 COVID-19 (principal); J12.89 Other viral pneumonia; J96.01 Acute respiratory failure with hypoxia; N17.0 Acute kidney failure with tubular necrosis; J15.9 Unspecified bacterial pneumonia; I13.0 Hypertensive heart and chronic kidney disease with heart failure and stage 1 through stage 4 chronic kidney disease, or unspecified chronic kidney disease; I42.8 Other cardiomyopathies; D62 Acute posthemorrhagic anemia; E87.1 Hypo-osmolality and hyponatremia; E66.2 Morbid (severe) obesity with alveolar hypoventilation; Z68.42 Body mass index [BMI] 45.0-49.9, adult; J98.11 Atelectasis; J93.82 Other air leak; I50.42 Chronic combined systolic (congestive) and diastolic (congestive) heart failure; N18.3 Chronic kidney disease, stage 3 (moderate); R57.8 Other shock; I25.10 Atherosclerotic heart disease of native coronary artery without angina pectoris; E11.22 Type 2 diabetes mellitus with diabetic chronic kidney disease; F32.9 Major depressive disorder, single episode, unspecified; Z95.810 Presence of automatic (implantable) cardiac defibrillator; Z66 Do not resuscitate; S40.022A Contusion of left upper arm, initial encounter; S40.021A Contusion of right upper arm, initial encounter; T50.995A Adverse effect of other drugs, medicaments and biological substances, initial encounter; D69.6 Thrombocytopenia, unspecified; E11.65 Type 2 diabetes mellitus with hyperglycemia; Z79.4 Long term (current) use of insulin; K64.8 Other hemorrhoids; K57.30 Diverticulosis of large intestine without perforation or abscess without bleeding; Z79.899 Other long term (current) drug therapy; Z82.49 Family history of ischemic heart disease and other diseases of the circulatory system; Z96.653 Presence of artificial knee joint, bilateral; Z91.15 Patient's noncompliance with renal dialysis; Z51.5 Encounter for palliative care; E78.00 Pure hypercholesterolemia, unspecified; D63.1 Anemia in chronic kidney disease
CPT/HCPCS: 31500; 31720; 36569; 36600; 71045; 80048; 80053; 80202; 81001; 82550; 82803; 82962; 83605; 83615; 83735; 83880; 84075; 84100; 84145; 84478; 84484; 85025; 85027; 85379; 85610; 85730; 86140; 86850; 86900; 86901; 86920; 86922; 87040; 87070; 87086; 87088; 87205; 87449; 87493; 87633; 87635; 87641; 93005; 93971; 94002; 94003; 94640; 94660; 94799; 97110; 97162; 97166; 97802; 99251; 99285; J2185; J7030; J7040; J7050; P9016; P9612; A4216; G0463; J1940; J2405; J3010; J3490; U0003